=== PATIENT | male | born 1970 | race Caucasian/White ===

== ENCOUNTER 2016-09-14 22:31 | Emergency (ER) | payer MEDICAID, OTHER ==
[2016-09-14 22:40] VITALS: TEMP 98
--- NOTE | 2016-09-14 22:48 | ED ---
Fall HPI - General Chief Complaint: Fall Stated Complaint: Fall/[facility] Time Seen by Provider: 09/14/16 22:41 Source: patient, RN notes reviewed Mode of arrival: ambulatory - History of Present Illness Initial Comments: 46 -year-old male presents emergency out he fell forward. Patient states he had his left knee as well as his left wrist. Patient states he did not hit his head there is no lightheadedness or dizziness before the fall. Patient states the pain is moderate he is able to bear weight. Diagnosis swelling and some clots. Patient states he hasn't had any other injuries from the incident. Patient states she was concerned due to the fact that the bruising and the cuts without that he should be evaluated.Patient denies any recent fever, chills, shortness of breath, chest pain, back pain, abdominal pain, nausea vomiting, numbness or tingling, dysuria or hematuria, constipation or diarrhea, headaches or visual changes, or any other current symptoms. - Related Data Home Medications Medication Instructions Recorded Confirmed Omeprazole [Omeprazole] 20 mg PO BID 04/29/14 09/14/16 Atenolol [Tenormin] 50 mg PO DAILY 05/21/15 09/14/16 amLODIPine BESYLATE [Norvasc] 10 mg PO DAILY 05/21/15 09/14/16 ALPRAZolam [ALPRAZolam] 0.25 mg PO DAILY PRN 03/10/16 09/14/16 Fluticasone/Vilanterol [Breo 1 puff INHALATION RT-DAILY PRN 03/10/16 09/14/16 Ellipta 100-25 Mcg Inhaler] Hydrocodone/Acetaminophen 1 tab PO TID PRN 03/10/16 09/14/16 [Hydrocodon-Acetaminoph 7.5-325] QUEtiapine FUMARATE [SEROquel XR] 300 mg PO HS 03/10/16 09/14/16 Simvastatin [Simvastatin] 40 mg PO HS 03/10/16 09/14/16 cloNIDine HCL [Catapres] 0.2 mg PO TID 03/10/16 09/14/16 Aspirin 81 mg PO DAILY 03/23/16 09/14/16 Allergies Allergy/AdvReac Type Severity Reaction Status Date / Time No Known Allergies Allergy Verified 09/14/16 23:09 Review of Systems ROS Statement: Those systems with pertinent positive or pertinent negative responses have been documented in the HPI. ROS Other: All systems not noted in ROS Statement are negative. Past Medical History Past Medical History: Hyperlipidemia, Hypertension Additional Past Medical History / Comment(s): pancreatitis History of Any Multi-Drug Resistant Organisms: None Reported Past Surgical History: Cholecystectomy, Hernia Repair Past Psychological History: No Psychological Hx Reported, Anxiety, Bipolar Smoking Status: Current every day smoker Past Alcohol Use History: None Reported Past Drug Use History: None Reported General Exam - General Exam Comments Initial Comments: General: The patient is awake and alert, in no distress, and does not appear acutely ill. Neck: The neck is supple, there is no tenderness. Cardiovascular: There is a regular rate and rhythm. No murmur, rub or gallop is appreciated. Respiratory: Lungs are clear to auscultation, respirations are non-labored, breath sounds are equal. No wheezes, stridor, rales, or rhonchi. Musculoskeletal: Sensation intact with 2+ pulses of the left upper and lower extremity Full range of motion of left elbow and left wrist left hand. Patient does have some abrasions to the left lateral wrist. Full range of motion no deformity. Patient has full range of motion of left knee and left ankle. Patient does appear to have some ecchymosis to the anterior proximal tib -fib area. No bony tenderness. No deformity. Patient is able to bear weight. Neurological: CN II-XII intact, There are no obvious motor or sensory deficits. Coordination appears grossly intact. Speech is normal. Skin: Skin is warm and dry and no rashes or lesions are noted. Psychiatric: Normal mood and affect. Limitations: no limitations Course Vital Signs 09/14/16 22:37 Temperature 98.0 F Pulse Rate 87 Respiratory 18 Rate Blood Pressure 128/85 O2 Sat by Pulse 94 L Oximetry Medical Decision Making - Medical Decision Making 46-year-old male presents with chief complaint fall. This time patient appears to have presents for left wrist and left wrist sprain. Patient also appears to have a contusion to the left knee. This time we discussed using Motrin Tylenol for pain control we discussed rest and ice. We discussed return parameters and follow-up. The patient and family stated he understood all questions have any answered. They will be discharged home. - Radiology Data Radiology results: report reviewed, image reviewed Disposition Clinical Impression: Fall, Abrasion of left wrist, Left wrist sprain, Contusion of left knee Disposition: HOME SELF-CARE Instructions: Abrasion (ED), Contusion in Adults (ED) Additional Instructions: Please use medication as discussed. Please follow up with family doctor if symptoms have not improved over the next two days. Please return to the emergency room if your symptoms increase or worsen or for any other concerns. Referrals: Jabari Sorto MD [Primary Care Provider] - 1-2 days Time of Disposition: 23:21
[2016-09-14] MEDS ORDERED: IBUPROFEN 600 MG TAB PO STA (22:56)
--- NOTE | 2016-09-14 23:08 | XR ---
EXAMINATION TYPE: XR wrist complete LT DATE OF EXAM: 09/14/2016 10:56 PM CLINICAL HISTORY: pain history of fall from ladder laceration to the medial side of the left wrist. TECHNIQUE: Frontal, lateral and oblique images of the left wrist are obtained. COMPARISON: None. FINDINGS: There is no acute fracture/dislocation evident. The joint spaces appear within normal bosch its. Mild soft tissue swelling is suggested. IMPRESSION: There is no acute fracture or dislocation seen. ICD 10 NO FRACTURE, INITIAL EVALUATION
--- NOTE | 2016-09-14 23:15 | XR ---
EXAMINATION TYPE: XR tibia fibula LT DATE OF EXAM: 09/14/2016 10:56 PM CLINICAL HISTORY: pain. History of fall bruise to the anterior midshaft of left tibia and fibula. TECHNIQUE: AP and lateral images of the left tibia and fibula are obtained. COMPARISON: None. FINDINGS: There is no acute fracture/dislocation evident. The joint spaces appear within normal bosch its. Mild soft tissue swelling is suggested. IMPRESSION: There is no acute fracture or dislocation seen. ICD 10 NO FRACTURE, INITIAL EVALUATION
[2016-09-14] MEDS ORDERED: DIPH,PERTUS(ACELL)TETVAC-LF 0.5 ML VIAL IM ONE (23:22)
[2016-09-14 23:29] VITALS: BP 114/81; PULSE 80; RESP 16
== END 2016-09-14 23:49 | disposition home or self-care (01) ==
LOC: EC 22:31
DX: S63.502A Unspecified sprain of left wrist, initial encounter (principal); S80.02XA Contusion of left knee, initial encounter; E78.5 Hyperlipidemia, unspecified; I10 Essential (primary) hypertension; F31.9 Bipolar disorder, unspecified; F41.9 Anxiety disorder, unspecified; Z23 Encounter for immunization; Z79.82 Long term (current) use of aspirin; Z79.899 Other long term (current) drug therapy; W11.XXXA Fall on and from ladder, initial encounter
CPT/HCPCS: 90471; 90715; 99284

== ENCOUNTER → 2017-02-03 | Outpatient (CLI) | payer MEDICAID ==
--- NOTE | 2017-02-03 12:23 | ECHOF ---
Referral Reason:I34.0 Mitro Valve Disorders MEASUREMENTS -------- HEIGHT: 195.6 cm WEIGHT: 113.4 kg BP: 116/69 RVIDd: 3.7 cm (< 3.3) IVSd: 1.3 cm (0.6 - 1.1) LVIDd: 4.7 cm (3.9 - 5.3) LVPWd: 1.4 cm (0.6 - 1.1) IVSs: 1.8 cm LVIDs: 3.3 cm LVPWs: 1.9 cm LA Diam: 4.2 cm (2.7 - 3.8) LAESV Index (A-L): 24.75 ml/m Ao Diam: 3.4 cm (2.0 - 3.7) AV Cusp: 2.5 cm (1.5 - 2.6) MV EXCURSION: 16.226 mm (> 18.000) MV EF SLOPE: 89 mm/s (70 - 150) EPSS: 0.5 cm MV E Jesus Alberto: 1.02 m/s MV DecT: 234 ms MV A Jesus Alberto: 0.79 m/s MV E/A Ratio: 1.30 RAP: 5.00 mmHg RVSP: 25.57 mmHg FINDINGS -------- Sinus rhythm. This was a technically good study. The left ventricular size is normal. There is mild concentric left ventricular hypertrophy. Overall left ventricular systolic function is normal with, an EF between 60 - 65 %. The right ventricle is mildly enlarged. Normal LA size by volume 22+/-6 ml/m2. The right atrium is normal in size. The aortic valve is trileaflet and appears structurally normal. The mitral valve leaflets are mildly thickened. Mild mitral regurgitation is present. Mild tricuspid regurgitation present. Right ventricular systolic pressure is normal at < 35 mmHg. Trace/mild (physiologic) pulmonic regurgitation. The aortic root size is normal. The inferior vena cava is mildly dilated. The pericardium is normal. CONCLUSIONS -------- 1. Sinus rhythm. 2. The mitral valve leaflets are mildly thickened. 3. Mild mitral regurgitation is present. 4. Mild tricuspid regurgitation present. 5. Right ventricular systolic pressure is normal at < 35 mmHg. 6. Trace/mild (physiologic) pulmonic regurgitation. 7. The aortic root size is normal. 8. The inferior vena cava is mildly dilated. 9. The pericardium is normal. 10. This was a technically good study. 11. The left ventricular size is normal. 12. There is mild concentric left ventricular hypertrophy. 13. Overall left ventricular systolic function is normal with, an EF between 60 - 65 %. 14. The right ventricle is mildly enlarged. 15. Normal LA size by volume 22+/-6 ml/m2. 16. The right atrium is normal in size. 17. The aortic valve is trileaflet and appears structurally normal. STAVE [employer] BOLT EQUALIZER: Stacia Conklin RDCS
== END | disposition home or self-care (01) ==
LOC: RADECHMAIN 11:21
PROVIDERS: ATTEND Internal Medicine Interventional Cardiology
DX: I08.1 Rheumatic disorders of both mitral and tricuspid valves (principal); I87.8 Other specified disorders of veins
CPT/HCPCS: 93306

== ENCOUNTER → 2017-09-29 | Outpatient (CLI) | payer MEDICAID | END | disposition home or self-care (01) | LOC: LABWHC1 16:13 | PROVIDERS: ATTEND Internal Medicine Infectious Disease | DX: E27.40 Unspecified adrenocortical insufficiency (principal) | CPT/HCPCS: 36415; 82533 ==

== ENCOUNTER → 2017-10-01 | Outpatient (CLI) | payer MEDICAID ==
--- NOTE | 2017-10-02 15:40 | CT ---
EXAMINATION TYPE: CT chest w con DATE OF EXAM: 10/01/2017 COMPARISON: NONE HISTORY: Right sided chest pain and cough CT DLP: 507.8 mGycm Automated exposure control for dose reduction was used. CONTRAST: CT scan of the chest is performed with IV Contrast, patient injected with 100 mL of Omnipaque 300. FINDINGS: There is 8 mm calcified granuloma in the superior segment right lower lobe. There is mild linear dens ity at the posterior lung bases. There is no pleural effusion. There is no evidence of a pulmonary ma ss. There is no mediastinal adenopathy. There are no hilar masses. Heart size is normal. There is no pericardial effusion. Thoracic aorta appears intact. There is no sign of aneurysm or dissection. The bony thorax appears intact. There is some coronary artery calcification. IMPRESSION: There is some scarring in atelectasis at the posterior lung bases. Healed granulomatous disease. No evidence of bronchopneumonia.
== END | disposition home or self-care (01) ==
LOC: RADCTMAIN 10:48
PROVIDERS: ATTEND Family Medicine
DX: J98.11 Atelectasis (principal); J98.4 Other disorders of lung
CPT/HCPCS: 71260; Q9967

== ENCOUNTER → 2017-11-03 | Outpatient (CLI) | payer MEDICAID ==
[2017-11-03 21:12] LABS: ACTH 14.6 pg/mL (0.00-45.99)
== END | disposition home or self-care (01) ==
LOC: LABWHC1 10:37
PROVIDERS: ATTEND Internal Medicine Endocrinology, Diabetes & Metabolism
DX: E27.3 Drug-induced adrenocortical insufficiency (principal); E29.1 Testicular hypofunction; F17.200 Nicotine dependence, unspecified, uncomplicated
CPT/HCPCS: 36415; 82024; 82533; 82607; 83002; 84403; 84443

== ENCOUNTER → 2017-11-09 | Outpatient (CLI) | payer MEDICAID ==
--- NOTE | 2017-11-09 14:11 | US ---
EXAMINATION TYPE: US carotid duplex BILAT DATE OF EXAM: 11/09/2017 COMPARISON: NONE CLINICAL HISTORY: R20.0 ANESTHESIA OF SKIN. Intermittent right arm numbness and neck pain x couple we eks EXAM MEASUREMENTS: RIGHT: Peak Systolic Velocity (PSV) cm/sec ----- Right CCA: 70.0 ----- Right ICA: 78.7 ----- Right ECA: 114.7 ICA/CCA ratio: 1.1 RIGHT: End Diastole cm/sec ----- Right CCA: 20.9 ----- Right ICA: 30.3 ----- Right ECA: 29.2 LEFT: Peak Systolic Velocity (PSV) cm/sec ----- Left CCA: 106.6 ----- Left ICA: 86.4 ----- Left ECA: 94.1 ICA/CCA ratio: 0.8 LEFT: End Diastole cm/sec ----- Left CCA: 27.2 ----- Left ICA: 19.3 ----- Left ECA: 24.8 VERTEBRALS (direction of flow): Right Vertebral: Antegrade Left Vertebral: Antegrade Rhythm: Normal No elevated velocities, no significant stenosis. Some mild intimal thickening may be present on the left. No significant flow-limiting stenosis is aarti dent. IMPRESSION: 1. Suggestion of minimal left intimal thickening. 2. No significant flow-limiting stenosis. Criteria for Assigning % of Stenosis / Diameter reduction (Estimation based on the indirect measurements of the internal carotid artery velocities (ICA PSV). 1. Normal (no stenosis)=ICA PSV < 125 cm/s: ratio < 2.0: ICA EDV<40 cm/s. 2. Less than 50% stenosis=ICA PSV < 125 cm/s: ratio < 2.0: ICA EDV<40 cm/s. 3. 50 to 69% stenosis=ICA PSV of 125 to 230 cm/s: ration 2.0 ? 4.0: ICA EDV 40-100 cm/s. 4. Greater than 70% stenosis to near occlusion= ICA PSV > 230 cm/s: ratio > 4.0: ICA EDV > 100 cm/s. 5. Near occlusion= ICA PSV velocities may be low or undetectable: variable ratio and ICA EDV. 6. Total occlusion=unable to detect flow.
== END | disposition home or self-care (01) ==
LOC: RADUSWWP 13:26
PROVIDERS: ATTEND Internal Medicine
DX: R20.0 Anesthesia of skin (principal)
CPT/HCPCS: 93880

== ENCOUNTER → 2017-11-11 | Outpatient (CLI) | payer MEDICAID ==
--- NOTE | 2017-11-11 12:34 | MR ---
EXAMINATION TYPE: MR cervical spine wo con DATE OF EXAM: 11/11/2017 COMPARISON: NONE HISTORY: Cervical pain TECHNIQUE: Multiplanar, multisequence images of the cervical spine were acquired. C2-C3: No evidence for degenerative disc disease. No disc bulge/herniation or protrusion. No Canal stenosis. Foramina are patent bilaterally. C3-C4: No evidence for degenerative disc disease. No disc bulge/herniation or protrusion. No Canal stenosis. Foramina are patent bilaterally. C4-C5: No evidence for degenerative disc disease. No disc bulge/herniation or protrusion. No Canal stenosis. Foramina are patent bilaterally. C5-C6: There is some asymmetric right paracentral disc bulge with mild anterior thecal sac compressio n. No AP spinal canal stenosis is present. No cord contact is evident. Uncovertebral joint hypertroph y is mild bilateral foraminal narrowing. C6-C7: Broad-based disc bulge has mild anterior thecal sac contact. No cord contact or spinal canal s tenosis is present. Neural foramen are patent. C7-T1: No evidence for degenerative disc disease. No disc bulge/herniation or protrusion. No Canal stenosis. Foramina are patent bilaterally. Cervical segments are intact. There is normal alignment. Cervical spinal cord is of normal signal. Craniovertebral junction relationships are within normal limits. IMPRESSION: 1. Right paracentral small disc bulge with mild anterior thecal sac compression. 2. Broad-based mild to moderate disc bulge C6-7 with mild anterior thecal sac impression.
== END | disposition home or self-care (01) ==
LOC: RADMRIMAIN 11:05
PROVIDERS: ATTEND Family Medicine
DX: M50.122 Cervical disc disorder at C5-C6 level with radiculopathy (principal)
CPT/HCPCS: 72141

== ENCOUNTER → 2017-11-21 | Outpatient (CLI) | payer MEDICAID | END | disposition home or self-care (01) | LOC: LABWHC1 11:49 | PROVIDERS: ATTEND Internal Medicine Endocrinology, Diabetes & Metabolism | DX: E27.3 Drug-induced adrenocortical insufficiency (principal); E29.1 Testicular hypofunction; R53.83 Other fatigue | CPT/HCPCS: 36415; 82024; 82533 ==

== ENCOUNTER 2018-01-07 23:04 | Emergency (ER) | payer MEDICAID ==
[2018-01-07] MEDS ORDERED: FAMOTIDINE 20 MG/2 ML VIAL IV STA (23:46)
[2018-01-07] MEDS ORDERED: DICYCLOMINE 10 MG/ML 2 ML AMP IM STA (23:46)
[2018-01-07] MEDS ORDERED: SODIUM CHLORIDE 0.9% 1,000 ML IV STA (23:46)
--- NOTE | 2018-01-07 23:49 | ED ---
General Adult HPI - General Chief complaint: Abdominal Pain Stated complaint: Abdominal pain Time Seen by Provider: 01/07/18 23:40 Source: patient, RN notes reviewed Mode of arrival: ambulatory Limitations: no limitations - History of Present Illness Initial comments: Patient is a pleasant 47-year-old male presenting to the emergency Department with abdominal discomfort. Symptoms have been present for the past 7-10 days. Patient did feel somewhat constipated however took a laxative with a bowel movement and no change in symptoms. No nausea vomiting. No diarrhea. No dysuria or hematuria. No fever. Symptoms feel somewhat similar to previous hernia however patient does not feel patient protrudes in from the abdomen. Patient does have a history of hernia repair approximately one year ago in this area. Patient has known acid reflux disease and questions if this could be contributing factor. - Related Data Home Medications Medication Instructions Recorded Confirmed Omeprazole [Omeprazole] 20 mg PO BID 04/29/14 09/14/16 Atenolol [Tenormin] 50 mg PO DAILY 05/21/15 09/14/16 amLODIPine BESYLATE [Norvasc] 10 mg PO DAILY 05/21/15 09/14/16 ALPRAZolam [ALPRAZolam] 0.25 mg PO DAILY PRN 03/10/16 09/14/16 Fluticasone/Vilanterol [Breo 1 puff INHALATION RT-DAILY PRN 03/10/16 09/14/16 Ellipta 100-25 Mcg Inhaler] Hydrocodone/Acetaminophen 1 tab PO TID PRN 03/10/16 09/14/16 [Hydrocodon-Acetaminoph 7.5-325] QUEtiapine FUMARATE [SEROquel XR] 300 mg PO HS 03/10/16 09/14/16 Simvastatin [Simvastatin] 40 mg PO HS 03/10/16 09/14/16 cloNIDine HCL [Catapres] 0.2 mg PO TID 03/10/16 09/14/16 Aspirin 81 mg PO DAILY 03/23/16 09/14/16 Previous Rx's Medication Instructions Recorded Albuterol Inhaler [Ventolin Hfa 1 - 2 puff INHALATION Q6HR PRN #1 07/24/17 Inhaler] inhaler predniSONE 60 mg PO DAILY #30 tab 07/24/17 Pantoprazole [Protonix] 40 mg PO DAILY #30 tablet. 01/08/18 Allergies Allergy/AdvReac Type Severity Reaction Status Date / Time No Known Allergies Allergy Verified 01/07/18 23:15 Review of Systems ROS Statement: Those systems with pertinent positive or pertinent negative responses have been documented in the HPI. ROS Other: All systems not noted in ROS Statement are negative. Constitutional: Denies: fever Eyes: Denies: eye pain ENT: Denies: ear pain Respiratory: Denies: cough Cardiovascular: Denies: chest pain Endocrine: Reports: fatigue Gastrointestinal: Reports: abdominal pain. Denies: nausea, vomiting, diarrhea Genitourinary: Denies: dysuria Musculoskeletal: Denies: back pain Skin: Denies: rash Neurological: Denies: headache Past Medical History Past Medical History: Hyperlipidemia, Hypertension Additional Past Medical History / Comment(s): pancreatitis History of Any Multi-Drug Resistant Organisms: None Reported Past Surgical History: Cholecystectomy, Hernia Repair Past Psychological History: Anxiety, Bipolar Smoking Status: Current every day smoker Past Alcohol Use History: None Reported Past Drug Use History: None Reported General Exam Limitations: no limitations General appearance: alert, in no apparent distress Head exam: Present: atraumatic Eye exam: Present: normal appearance Neck exam: Present: normal inspection Respiratory exam: Present: normal lung sounds bilaterally Cardiovascular Exam: Present: regular rate, normal rhythm Expanded Peripheral pulses: 2+: Posterior Tibialis (R), Posterior Tibialis (L) GI/Abdominal exam: Present: soft, tenderness (Mild umbilical tenderness), normal bowel sounds. Absent: distended, guarding, rebound, rigid, pulsatile mass, hernia (No hernia palpated on exam) Extremities exam: Present: normal inspection Neurological exam: Present: alert Psychiatric exam: Present: normal affect, normal mood Skin exam: Present: normal color Course Vital Signs 01/07/18 23:14 Temperature 98.2 F Pulse Rate 84 Respiratory 18 Rate Blood Pressure 126/88 O2 Sat by Pulse 98 Oximetry Medical Decision Making - Medical Decision Making Patient reevaluated and resting comfortably in bed. Patient states there is now much improvement with medications however does not want further medication at this time. Patient states he does have an appointment with his surgeon on and is advised to try to get this sooner. Patient also advised to consider GI follow-up. - Lab Data Result diagrams: 01/08/18 00:15 01/08/18 00:15 Lab Results 01/08/18 01/08/1801/08/18 Range/Units 00:15 00:15 00:15 WBC 9.4 (3.8-10.6) k/uL RBC 4.78 (4.30-5.90) m/uL Hgb 14.2 (13.0-17.5) gm/dL Hct 40.7 (39.0-53.0) % MCV 85.1 (80.0-100.0) fL MCH 29.7 (25.0-35.0) pg MCHC 34.9 (31.0-37.0) g/dL RDW 12.8 (11.5-15.5) % Plt Count 187 (150-450) k/uL Neutrophils % 61 % Lymphocytes % 26 % Monocytes % 7 % Eosinophils % 3 % Basophils % 1 % Neutrophils # 5.7 (1.3-7.7) k/uL Lymphocytes # 2.4 (1.0-4.8) k/uL Monocytes # 0.7 (0-1.0) k/uL Eosinophils # 0.3 (0-0.7) k/uL Basophils # 0.1 (0-0.2) k/uL PT 9.9 (9.0-12.0) sec INR 1.0 (<1.2) APTT 23.0 (22.0-30.0) sec Sodium 141 (137-145) mmol/L Potassium 4.0 (3.5-5.1) mmol/L Chloride 103 (98-107) mmol/L Carbon Dioxide 25 (22-30) mmol/L Anion Gap 13 mmol/L BUN 12 (9-20) mg/dL Creatinine 0.90 (0.66-1.25) mg/dL Est GFR (CKD-EPI)AfAm >90 (>60 ml/min/1.73 sqM) Est GFR (CKD-EPI)NonAf >90 (>60 ml/min/1.73 sqM) Glucose 89 (74-99) mg/dL Calcium 9.5 (8.4-10.2) mg/dL Total Bilirubin 0.3 (0.2-1.3) mg/dL AST 37 (17-59) U/L ALT 56 (21-72) U/L Alkaline Phosphatase 79 (38-126) U/L Total Protein 7.0 (6.3-8.2) g/dL Albumin 4.5 (3.5-5.0) g/dL Amylase 38 (30-110) U/L Lipase 59 (23-300) U/L Urine Color Urine Appearance (Clear) Urine pH (5.0-8.0) Ur Specific [place] (1.001-1.035) Urine Protein (Negative) Urine Glucose (UA) (Negative) Urine Ketones (Negative) Urine Blood (Negative) Urine Nitrite (Negative) Urine Bilirubin (Negative) Urine Urobilinogen (<2.0) mg/dL Ur Leukocyte Esterase (Negative) 01/08/18 Range/Units 00:15 WBC (3.8-10.6) k/uL RBC (4.30-5.90) m/uL Hgb (13.0-17.5) gm/dL Hct (39.0-53.0) % MCV (80.0-100.0) fL MCH (25.0-35.0) pg MCHC (31.0-37.0) g/dL RDW (11.5-15.5) % Plt Count (150-450) k/uL Neutrophils % % Lymphocytes % % Monocytes % % Eosinophils % % Basophils % % Neutrophils # (1.3-7.7) k/uL Lymphocytes # (1.0-4.8) k/uL Monocytes # (0-1.0) k/uL Eosinophils # (0-0.7) k/uL Basophils # (0-0.2) k/uL PT (9.0-12.0) sec INR (<1.2) APTT (22.0-30.0) sec Sodium (137-145) mmol/L Potassium (3.5-5.1) mmol/L Chloride (98-107) mmol/L Carbon Dioxide (22-30) mmol/L Anion Gap mmol/L BUN (9-20) mg/dL Creatinine (0.66-1.25) mg/dL Est GFR (CKD-EPI)AfAm (>60 ml/min/1.73 sqM) Est GFR (CKD-EPI)NonAf (>60 ml/min/1.73 sqM) Glucose (74-99) mg/dL Calcium (8.4-10.2) mg/dL Total Bilirubin (0.2-1.3) mg/dL AST (17-59) U/L ALT (21-72) U/L Alkaline Phosphatase (38-126) U/L Total Protein (6.3-8.2) g/dL Albumin (3.5-5.0) g/dL Amylase (30-110) U/L Lipase (23-300) U/L Urine Color Light Yellow Urine Appearance Clear (Clear) Urine pH 5.5 (5.0-8.0) Ur Specific [place] 1.004 (1.001-1.035) Urine Protein Negative (Negative) Urine Glucose (UA) Negative (Negative) Urine Ketones Negative (Negative) Urine Blood Negative (Negative) Urine Nitrite Negative (Negative) Urine Bilirubin Negative (Negative) Urine Urobilinogen <2.0 (<2.0) mg/dL Ur Leukocyte Esterase Negative (Negative) - Radiology Data Radiology results: report reviewed (Computed tomography scan of the abdomen pelvis shows no acute abnormality) Disposition Clinical Impression: Abdominal pain Disposition: HOME SELF-CARE Condition: Stable Instructions: Abdominal Pain (ED) Additional Instructions: Please follow-up with primary care physician as well as your surgeon as well as gastroenterology in the next couple of days for recheck. Return for increased pain, fever, vomiting, worsening or change in symptoms or other concerns. Prescriptions: Pantoprazole [Protonix] 40 mg PO DAILY #30 tablet.dr Is patient prescribed a controlled substance at d/c from ED?: No Referrals: Сергей Elizabeth MD [Primary Care Provider] - 1-2 days Brian Francois MD [STAFF PHYSICIAN] - 1-2 days Arie Buckley MD [STAFF PHYSICIAN] - 1-2 days Time of Disposition: 01:17
[2018-01-08 00:32] LABS: Basophils # (A) 0.1 k/uL (0-0.2); Basophils % (A) 1 %; Eosinophils # (A) 0.3 k/uL (0-0.7); Eosinophils % (A) 3 %; HCT 40.7 % (39.0-53.0); HGB 14.2 gm/dL (13.0-17.5); Lymphocytes # (A) 2.4 k/uL (1.0-4.8); Lymphocytes % (A) 26 %; MCH 29.7 pg (25.0-35.0); MCHC 34.9 g/dL (31.0-37.0); MCV 85.1 fL (80.0-100.0); Mean Platelet Volume 9.1; Monocytes # (A) 0.7 k/uL (0-1.0); Monocytes % (A) 7 %; Neutrophils # (A) 5.7 k/uL (1.3-7.7); Neutrophils % (A) 61 %; Platelet Count 187 k/uL (150-450); RBC 4.78 m/uL (4.30-5.90); RDW 12.8 % (11.5-15.5); WBC 9.4 k/uL (3.8-10.6)
[2018-01-08 00:33] LABS: Appearance,Urine Clear (Clear); Bilirubin,Urine Negative (Negative); Blood,Urine Negative (Negative); Color,Urine Light Yellow; Glucose,Urine (UA) Negative (Negative); Ketones,Urine Negative (Negative); Leukocyte Esterase,Urine Negative (Negative); Nitrite,Urine Negative (Negative); PH, Urine 5.5 (5.0-8.0); Protein,Urine Negative (Negative); Specific Gravity,Urine 1.004 (1.001-1.035); Urobilinogen,Urine <2.0 mg/dL (<2.0)
[2018-01-08 00:43] LABS: ALT 56 U/L (21-72); AST 37 U/L (17-59); Albumin 4.5 g/dL (3.5-5.0); Alkaline Phosphatase 79 U/L (38-126); Amylase 38 U/L (30-110); Anion Gap 13 mmol/L; Blood Urea Nitrogen 12 mg/dL (9-20); Calcium 9.5 mg/dL (8.4-10.2); Carbon Dioxide 25 mmol/L (22-30); Chloride 103 mmol/L (98-107); Glucose 89 mg/dL (74-99); Lipase 59 U/L (23-300); Sodium 141 mmol/L (137-145); Total Bilirubin 0.3 mg/dL (0.2-1.3)
[2018-01-08 00:46] LABS: Prothrombin Time 9.9 sec (9.0-12.0)
--- NOTE | 2018-01-08 00:54 | CT ---
EXAMINATION TYPE: CT abdomen pelvis w con DATE OF EXAM: 01/08/2018 COMPARISON: 03/11/2016 HISTORY: Umbilcal pain, lower abd pain CT DLP: 1599.10 mGycm Automated exposure control for dose reduction was used. TECHNIQUE: Helical acquisition of images was performed from the lung bases through the pelvis. CONTRAST: Performed without Oral Contrast and with IV Contrast, patient injected with 100 mL of Isovue 300. FINDINGS: There is mild subsegmental atelectasis at the lung bases. There is no pleural effusion. Heart size is normal. There are clips from cholecystectomy. Bile ducts are not dilated. Liver spleen pancreas appear normal . There is no adrenal mass. Kidneys show satisfactory contrast opacification. There is no hydronephro sis. There is no retroperitoneal adenopathy. There is no ascites. There are numerous sigmoid divertic roberto. There is no evidence of diverticulitis. Appendix appears normal. Bladder distends smoothly. Ther e is no evidence of pelvic mass. There is no sign of free air. Bony structures are intact. IMPRESSION: MILD SIGMOID DIVERTICULOSIS. NO EVIDENCE OF DIVERTICULITIS. MILD SUBSEGMENTAL ATELECTASIS AT THE LUNG BASES WITHOUT CHANGE COMPARED TO OLD EXAM.
[2018-01-08 01:26] VITALS: BP 130/83; PULSE 64; RESP 16; TEMP 97.1
== END 2018-01-08 01:25 | disposition home or self-care (01) ==
LOC: EC 23:04
DX: R10.33 Periumbilical pain (principal); E78.5 Hyperlipidemia, unspecified; I10 Essential (primary) hypertension; F31.9 Bipolar disorder, unspecified; F41.9 Anxiety disorder, unspecified; F17.200 Nicotine dependence, unspecified, uncomplicated; Z87.19 Personal history of other diseases of the digestive system; Z79.82 Long term (current) use of aspirin; Z79.899 Other long term (current) drug therapy
CPT/HCPCS: 36415; 80053; 82150; 83690; 85025; 85610; 85730; 81003; 74177; 99284; 96374; 96361; 96372; J0500; Q9967

== ENCOUNTER 2018-01-23 08:24 | Day surgery (SDC) | payer MEDICAID ==
[2018-01-18 11:53] VITALS: BMI 31.6
[~2018-01-23 08:24] MED LIST: LACTATED RINGERS 1,000 ML IV SCH; LIDOCAINE 1% 20 ML VIAL (10MG/ML) FOR IV START INTRADERMA PRN
[2018-01-23 09:36] VITALS: TEMP 98
[2018-01-23] MEDS ORDERED: LIDOCAINE 1% INJ 10MG/ML (20 ML MDV) ONE (10:53)
[2018-01-23] MEDS ORDERED: GLUCAGON 1 MG/ML VIAL ONE (10:53)
[2018-01-23] MEDS ORDERED: PROPOFOL 10 MG/ML 20 ML VIAL IV ONE (10:53)
--- NOTE | 2018-01-23 10:58 | P.GSHP ---
History of Present Illness H&P Date: 01/23/18 Chief Complaint: gerd, diverticulitis, abdominal pain This is a 47-year-old male who's had issues with GERD and diverticulitis. He presents today for EGD and colonoscopy. Past Medical History Past Medical History: Hyperlipidemia, Hypertension Additional Past Medical History / Comment(s): Hx of pancreatitis History of Any Multi-Drug Resistant Organisms: None Reported Past Surgical History: Cholecystectomy, Hernia Repair Past Anesthesia/Blood Transfusion Reactions: No Reported Reaction Past Psychological History: Anxiety, Bipolar Smoking Status: Current every day smoker Past Alcohol Use History: None Reported Additional Past Alcohol Use History / Comment(s): has smoked for 31 yrs 1ppd Past Drug Use History: None Reported - Past Family History Mother Family Medical History: No Reported History Medications and Allergies Home Medications Medication Instructions Recorded Confirmed Type Omeprazole [Omeprazole] 20 mg PO BID 04/29/14 01/18/18 History Atenolol [Tenormin] 50 mg PO DAILY 05/21/15 01/18/18 History amLODIPine BESYLATE [Norvasc] 10 mg PO DAILY 05/21/15 01/18/18 History ALPRAZolam [ALPRAZolam] 0.25 mg PO DAILY PRN 03/10/16 01/18/18 History Fluticasone/Vilanterol [Breo 1 puff INHALATION RT-DAILY PRN 03/10/16 01/18/18 History Ellipta 100-25 Mcg Inhaler] Hydrocodone/Acetaminophen 1 tab PO TID PRN 03/10/16 01/18/18 History [Hydrocodon-Acetaminoph 7.5-325] QUEtiapine FUMARATE [SEROquel XR] 300 mg PO HS 03/10/16 01/18/18 History Simvastatin [Simvastatin] 40 mg PO HS 03/10/16 01/18/18 History cloNIDine HCL [Catapres] 0.2 mg PO TID 03/10/16 01/18/18 History Aspirin 81 mg PO DAILY 03/23/16 01/18/18 History Albuterol Inhaler [Ventolin Hfa 1 - 2 puff INHALATION Q6HR PRN #1 07/24/1701/18 Rx Inhaler] inhaler Allergies Allergy/AdvReac Type Severity Reaction Status Date / Time No Known Allergies Allergy Verified 01/18/18 11:48 Surgical - Exam Vital Signs Temp Pulse Resp BP Pulse Ox 98 F 64 18 113/76 98 01/23/18 09:29 01/23/18 09:29 01/23/18 09:29 01/23/18 09:29 01/23/18 09:29 - General well developed, no distress - Eyes PERRL - ENT normal pinna - Neck no masses - Respiratory normal expansion - Cardiovascular Rhythm: regular - Abdomen Abdomen: soft Assessment and Plan Assessment: GERD, diverticulitis, abdominal pain we'll perform EGD and colonoscopy.
--- NOTE | 2018-01-23 11:24 | P.OP ---
Date of Procedure: 01/23/18 Preoperative Diagnosis: GERD Diverticulitis, Abdominal pain Postoperative Diagnosis: Mild esophagitis Small hiatal hernia Mild diverticulosis Procedure(s) Performed: EGD Colonoscopy Anesthesia: MAC Pathology: other (esophagus) Condition: stable Disposition: PACU Description of Procedure: The patient's placed on the endoscopy table in the lateral position. He received IV sedation. The gastroscope some placed oropharynx and passed through the esophagus into the stomach. Scope was then placed through the pylorus. The first and second portion of the duodenum appeared normal. The scope was then brought back the antrum and this appeared normal. Scope was unretroflexed and remainder of the stomach appeared normal. There was a small hiatal hernia. The GE junction was at 40 cm. The distal esophagus appeared mildly inflamed and a biopsies performed. The proximal esophagus appeared normal. Scope was withdrawn for patient. Next digital rectal exam was performed which revealed no abnormalities. The flexible colonoscope was then placed patient anus and passed throughout the entire colon. The ileocecal valve was visualized. The cecum, ascending and transverse colon appeared normal. In the descending and; was a few scattered diverticula. Scope was then brought back the rectum and this appeared normal. Scope was withdrawn for patient.
[2018-01-23 11:26] VITALS: RESP 16
[2018-01-23 11:37] VITALS: BP 121/75; PULSE 58
== END 2018-01-23 12:03 | disposition home or self-care (01) ==
LOC: ORWHC2ENDO 08:24
PROVIDERS: ATTEND Surgery
DX: K21.0 Gastro-esophageal reflux disease with esophagitis (principal); K44.9 Diaphragmatic hernia without obstruction or gangrene; K57.92 Diverticulitis of intestine, part unspecified, without perforation or abscess without bleeding; K31.9 Disease of stomach and duodenum, unspecified; I10 Essential (primary) hypertension; E78.5 Hyperlipidemia, unspecified; F17.210 Nicotine dependence, cigarettes, uncomplicated; Z87.19 Personal history of other diseases of the digestive system; F41.9 Anxiety disorder, unspecified; F31.9 Bipolar disorder, unspecified; Z79.82 Long term (current) use of aspirin; Z79.891 Long term (current) use of opiate analgesic; Z79.51 Long term (current) use of inhaled steroids; Z79.899 Other long term (current) drug therapy
CPT/HCPCS: 88305; 45378; 43239; J1610; J2001; J2704

== ENCOUNTER → 2018-01-26 | Outpatient (CLI) | payer MEDICAID ==
[2018-01-24 16:02] VITALS: BMI 31.6
[2018-01-26 14:01] VITALS: BP 129/88; PULSE 84; RESP 18
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
== END | disposition home or self-care (01) ==
LOC: PNWHC3 13:02
PROVIDERS: ATTEND Anesthesiology
DX: M47.812 Spondylosis without myelopathy or radiculopathy, cervical region (principal); I10 Essential (primary) hypertension; E78.5 Hyperlipidemia, unspecified; Z79.899 Other long term (current) drug therapy; Z79.891 Long term (current) use of opiate analgesic; Z79.82 Long term (current) use of aspirin; Z79.1 Long term (current) use of non-steroidal anti-inflammatories (NSAID)
CPT/HCPCS: 99211

== ENCOUNTER 2018-03-23 19:10 | Emergency (ER) | payer MEDICAID ==
[2018-03-23 19:20] VITALS: RESP 18
[2018-03-23] MEDS ORDERED: SODIUM CHLORIDE 0.9% 500 ML IV ONE (19:36)
--- NOTE | 2018-03-23 19:37 | ED ---
General Adult HPI - General Chief complaint: Arrhythmia/Palpitations Stated complaint: PALPATATIONS AND POSS SPIDER BITE Time Seen by Provider: 03/23/18 19:22 Source: patient, RN notes reviewed, old records reviewed Mode of arrival: ambulatory Limitations: no limitations - History of Present Illness Initial comments: 47-year-old male presents for evaluation of palpitations. Symptoms have been present for the past for 5 days. Patient does have history of palpitations, he states he has been told in the past this was secondary to "leaky valve". Patient follows with cardiology. He has history of hypertension. He is a current smoker. Denies any chest pain. Denies shoulder or arm pain. Denies jaw pain. Denies abdominal pain nausea or vomiting. Patient states he has had a cough which she attributes to smoking, he's been taking his albuterol inhaler which she initially thought may be contributing to his symptoms although he refrained for 3 days and this made no difference. - Related Data Home Medications Medication Instructions Recorded Confirmed Omeprazole 20 mg PO BID 04/29/14 03/23/18 Atenolol [Tenormin] 50 mg PO BID 05/21/15 03/23/18 amLODIPine BESYLATE [Norvasc] 10 mg PO DAILY 05/21/15 03/23/18 Hydrocodone/Acetaminophen 1 tab PO TID PRN 03/10/16 03/23/18 [Hydrocodon-Acetaminoph 7.5-325] Simvastatin 40 mg PO HS 03/10/16 03/23/18 cloNIDine HCL [Catapres] 0.2 mg PO TID 03/10/16 03/23/18 Aspirin 81 mg PO DAILY 03/23/16 03/23/18 Ibuprofen [Motrin Ib] 400 - 600 mg PO BID PRN 01/24/18 03/23/18 ALPRAZolam [Xanax] 0.5 mg PO BID PRN 03/23/18 03/23/18 Ipratropium/Albuterol Sulfate 1 puff INHALATION QID 03/23/18 03/23/18 [Combivent Respimat Inhaler] Multivitamins, Thera [Multivitamin 1 tab PO DAILY 03/23/18 03/23/18 (formulary)] QUEtiapine XR [SEROquel XR] 150 mg PO HS 03/23/18 03/23/18 Allergies Allergy/AdvReac Type Severity Reaction Status Date / Time No Known Allergies Allergy Verified 03/23/18 20:13 Review of Systems ROS Statement: Those systems with pertinent positive or pertinent negative responses have been documented in the HPI. ROS Other: All systems not noted in ROS Statement are negative. Past Medical History Past Medical History: Hyperlipidemia, Hypertension Additional Past Medical History / Comment(s): Hx of pancreatitis History of Any Multi-Drug Resistant Organisms: None Reported Past Surgical History: Cholecystectomy, Hernia Repair Past Anesthesia/Blood Transfusion Reactions: No Reported Reaction Past Psychological History: Anxiety, Bipolar Smoking Status: Current every day smoker Past Alcohol Use History: None Reported Past Drug Use History: None Reported - Past Family History Mother Family Medical History: No Reported History General Exam Limitations: no limitations General appearance: alert, in no apparent distress Head exam: Present: atraumatic, normocephalic Eye exam: Present: normal appearance, PERRL ENT exam: Present: normal exam Neck exam: Present: normal inspection. Absent: tenderness, meningismus Respiratory exam: Present: normal lung sounds bilaterally. Absent: respiratory distress, wheezes Cardiovascular Exam: Present: regular rate, normal rhythm GI/Abdominal exam: Present: soft. Absent: distended, guarding Extremities exam: Present: normal inspection, normal capillary refill. Absent: pedal edema Neurological exam: Present: alert, oriented X3, CN II-XII intact. Absent: motor sensory deficit Psychiatric exam: Present: normal affect, normal mood Skin exam: Present: warm, dry, intact. Absent: cyanosis, diaphoretic Course Vital Signs 03/23/18 03/23/18 19:16 19:40 Temperature 98.2 F Pulse Rate 78 Pulse Rate [ 82 Apical] Respiratory 18 Rate Blood Pressure 125/79 O2 Sat by Pulse 97 Oximetry EKG Findings - EKG Comments: EKG Findings:: EKG: Normal sinus rhythm, left axis deviation, moderate voltage criteria for LVH, no ST segment elevation or depression rate of 74, KS interval 172, QRS duration 96, QTC 398 Medical Decision Making - Medical Decision Making 47-year-old male presenting with intermittent palpitations. He does have history of palpitations. EKG shows normal sinus rhythm, chest x-ray obtained is negative for focal pneumonia or acute cardiopulmonary disease. CBC and CMP are unremarkable. Electrolytes within normal limits, troponin negative. Patient is offered observation for repeat echo as he does have history of valvular disease associated with his palpitations. He declines. He has an appointment in the morning with his primary care physician. He will maintain this appointment. He will return with worsening or changing symptoms. - Lab Data Result diagrams: 03/23/18 19:38 03/23/18 19:38 Lab Results 03/23/18 03/23/18 03/23/18 Range/Units 19:38 19:38 19:38 WBC 9.5 (3.8-10.6) k/uL RBC 4.72 (4.30-5.90) m/uL Hgb 13.4 (13.0-17.5) gm/dL Hct 40.2 (39.0-53.0) % MCV 85.3 (80.0-100.0) fL MCH 28.4 (25.0-35.0) pg MCHC 33.3 (31.0-37.0) g/dL RDW 13.4 (11.5-15.5) % Plt Count 182 (150-450) k/uL Neutrophils % 62 % Lymphocytes % 25 % Monocytes % 7 % Eosinophils % 3 % Basophils % 1 % Neutrophils # 5.9 (1.3-7.7) k/uL Lymphocytes # 2.3 (1.0-4.8) k/uL Monocytes # 0.7 (0-1.0) k/uL Eosinophils # 0.3 (0-0.7) k/uL Basophils # 0.1 (0-0.2) k/uL PT (9.0-12.0) sec INR (<1.2) APTT (22.0-30.0) sec Sodium 138 (137-145) mmol/L Potassium 3.8 (3.5-5.1) mmol/L Chloride 105 (98-107) mmol/L Carbon Dioxide 23 (22-30) mmol/L Anion Gap 10 mmol/L BUN 11 (9-20) mg/dL Creatinine 0.97 (0.66-1.25) mg/dL Est GFR (CKD-EPI)AfAm >90 (>60 ml/min/1.73 sqM) Est GFR (CKD-EPI)NonAf >90 (>60 ml/min/1.73 sqM) Glucose 100 H (74-99) mg/dL Calcium 9.0 (8.4-10.2) mg/dL Magnesium 1.6 (1.6-2.3) mg/dL Total Bilirubin 0.4 (0.2-1.3) mg/dL AST 41 (17-59) U/L ALT 56 (21-72) U/L Alkaline Phosphatase 71 (38-126) U/L Total Creatine Kinase 205 H (55-170) U/L CK-MB (CK-2) 2.2 (0.0-2.4) ng/mL CK-MB (CK-2) Rel Index 1.1 Troponin I <0.012 (0.000-0.034) ng/mL Total Protein 7.0 (6.3-8.2) g/dL Albumin 4.3 (3.5-5.0) g/dL 03/23/18 Range/Units 19:38 WBC (3.8-10.6) k/uL RBC (4.30-5.90) m/uL Hgb (13.0-17.5) gm/dL Hct (39.0-53.0) % MCV (80.0-100.0) fL MCH (25.0-35.0) pg MCHC (31.0-37.0) g/dL RDW (11.5-15.5) % Plt Count (150-450) k/uL Neutrophils % % Lymphocytes % % Monocytes % % Eosinophils % % Basophils % % Neutrophils # (1.3-7.7) k/uL Lymphocytes # (1.0-4.8) k/uL Monocytes # (0-1.0) k/uL Eosinophils # (0-0.7) k/uL Basophils # (0-0.2) k/uL PT 9.9 (9.0-12.0) sec INR 1.0 (<1.2) APTT 23.7 (22.0-30.0) sec Sodium (137-145) mmol/L Potassium (3.5-5.1) mmol/L Chloride (98-107) mmol/L Carbon Dioxide (22-30) mmol/L Anion Gap mmol/L BUN (9-20) mg/dL Creatinine (0.66-1.25) mg/dL Est GFR (CKD-EPI)AfAm (>60 ml/min/1.73 sqM) Est GFR (CKD-EPI)NonAf (>60 ml/min/1.73 sqM) Glucose (74-99) mg/dL Calcium (8.4-10.2) mg/dL Magnesium (1.6-2.3) mg/dL Total Bilirubin (0.2-1.3) mg/dL AST (17-59) U/L ALT (21-72) U/L Alkaline Phosphatase (38-126) U/L Total Creatine Kinase (55-170) U/L CK-MB (CK-2) (0.0-2.4) ng/mL CK-MB (CK-2) Rel Index Troponin I (0.000-0.034) ng/mL Total Protein (6.3-8.2) g/dL Albumin (3.5-5.0) g/dL Disposition Clinical Impression: Palpitations Disposition: HOME SELF-CARE Condition: Good Instructions: Palpitations (ED) Is patient prescribed a controlled substance at d/c from ED?: No Referrals: Сергей Elizabeth MD [Primary Care Provider] - 1-2 days Jabari Sorto MD [STAFF PHYSICIAN] - 1-2 days Time of Disposition: 20:53
[2018-03-23 19:48] LABS: Basophils # (A) 0.1 k/uL (0-0.2); Basophils % (A) 1 %; Eosinophils # (A) 0.3 k/uL (0-0.7); Eosinophils % (A) 3 %; HCT 40.2 % (39.0-53.0); HGB 13.4 gm/dL (13.0-17.5); Lymphocytes # (A) 2.3 k/uL (1.0-4.8); Lymphocytes % (A) 25 %; MCH 28.4 pg (25.0-35.0); MCHC 33.3 g/dL (31.0-37.0); MCV 85.3 fL (80.0-100.0); Mean Platelet Volume 9.3; Monocytes # (A) 0.7 k/uL (0-1.0); Monocytes % (A) 7 %; Neutrophils # (A) 5.9 k/uL (1.3-7.7); Neutrophils % (A) 62 %; Platelet Count 182 k/uL (150-450); RBC 4.72 m/uL (4.30-5.90); RDW 13.4 % (11.5-15.5); WBC 9.5 k/uL (3.8-10.6)
[2018-03-23 19:59] LABS: ALT 56 U/L (21-72); AST 41 U/L (17-59); Albumin 4.3 g/dL (3.5-5.0); Alkaline Phosphatase 71 U/L (38-126); Anion Gap 10 mmol/L; Blood Urea Nitrogen 11 mg/dL (9-20); Carbon Dioxide 23 mmol/L (22-30); Chloride 105 mmol/L (98-107); Glucose 100 mg/dL (74-99); Magnesium 1.6 mg/dL (1.6-2.3); Potassium 3.8 mmol/L (3.5-5.1); Sodium 138 mmol/L (137-145); Total Bilirubin 0.4 mg/dL (0.2-1.3)
--- NOTE | 2018-03-23 20:03 | XR ---
EXAMINATION: XR chest 2V DATE AND TIME: 03/23/2018 7:56 PM CLINICAL INDICATION: dysrhythmia TECHNIQUE: PA and lateral COMPARISON: 07/23/2017 FINDINGS: The lungs are clear. The pleural spaces are negative. The cardiac silhouette is not enlarged. The remainder of the mediastinal silhouette is unremarkable. The skeletal structures and soft tissues are negative for acute findings. IMPRESSION: NO ACUTE PROCESS.
[2018-03-23 20:16] LABS: Creatine Kinase 205 U/L (55-170)
[2018-03-23 20:30] LABS: Creatine Kinase MB 2.2 ng/mL (0.0-2.4); Partial Thromboplastin Time 23.7 sec (22.0-30.0); Prothrombin Time 9.9 sec (9.0-12.0); Troponin I <0.012 ng/mL (0.000-0.034)
[2018-03-23 21:01] VITALS: BP 157/87; PULSE 89; TEMP 97
== END 2018-03-23 21:01 | disposition home or self-care (01) ==
LOC: EC 19:10
DX: R00.2 Palpitations (principal); R05 Cough; E78.5 Hyperlipidemia, unspecified; I10 Essential (primary) hypertension; F31.9 Bipolar disorder, unspecified; F17.200 Nicotine dependence, unspecified, uncomplicated; Z79.82 Long term (current) use of aspirin; Z79.899 Other long term (current) drug therapy
CPT/HCPCS: 36415; 71046; 80053; 82550; 82553; 83735; 84484; 85025; 85610; 85730; 93005; 96360; 99285

== ENCOUNTER → 2018-04-11 | Outpatient (CLI) | payer MEDICAID ==
--- NOTE | 2018-04-11 12:19 | ECHOF ---
Referral Reason:R00.2 palpitations MEASUREMENTS -------- HEIGHT: 195.6 cm WEIGHT: 117.0 kg BP: RVIDd: 3.1 cm (< 3.3) IVSd: 1.2 cm (0.6 - 1.1) LVIDd: 5.5 cm (3.9 - 5.3) LVPWd: 1.3 cm (0.6 - 1.1) IVSs: 1.5 cm LVIDs: 4.2 cm LVPWs: 1.5 cm LAESV Index (A-L): 28.05 ml/m Ao Diam: 3.2 cm (2.0 - 3.7) AV Cusp: 1.8 cm (1.5 - 2.6) LA Diam: 3.6 cm (2.7 - 3.8) MV E Jesus Alberto: 0.68 m/s MV DecT: 305 ms MV A Jesus Alberto: 0.78 m/s MV E/A Ratio: 0.88 RAP: 5.00 mmHg RVSP: 28.10 mmHg FINDINGS -------- Sinus rhythm. This was a technically good study. The left ventricular size is normal. There is mild concentric left ventricular hypertrophy. Overa ll left ventricular systolic function is normal with, an EF between 55 - 60 %. The right ventricle is normal in size and function. Normal LA size by volume 22+/-6 ml/m2. The right atrium is normal in size. The aortic valve is trileaflet, and appears structurally normal. No aortic stenosis or regurgitation. The mitral valve leaflets are mildly thickened. There is trace to mild mitral regurgitation. Mild tricuspid regurgitation present. Right ventricular systolic pressure is normal at < 35 mmHg. There is no evidence of pulmonary hypertension. Trace/mild (physiologic) pulmonic regurgitation. The aortic root size is normal. Normal inferior vena cava with normal inspiratory collapse consistent with estimated right atrial pre ssure of 5 mmHg. There is no pericardial effusion. CONCLUSIONS -------- 1. Sinus rhythm. 2. This was a technically good study. 3. The left ventricular size is normal. 4. There is mild concentric left ventricular hypertrophy. 5. Overall left ventricular systolic function is normal with, an EF between 55 - 60 %. 6. Normal LA size by volume 22+/-6 ml/m2. 7. The aortic valve is trileaflet, and appears structurally normal. No aortic stenosis or regurgitati on. 8. The mitral valve leaflets are mildly thickened. 9. There is trace to mild mitral regurgitation. 10. Mild tricuspid regurgitation present. 11. Right ventricular systolic pressure is normal at < 35 mmHg. 12. There is no evidence of pulmonary hypertension. 13. Trace/mild (physiologic) pulmonic regurgitation. 14. The aortic root size is normal. 15. There is no pericardial effusion. COMBO WELDER: Joel Parker RDCS
== END | disposition home or self-care (01) ==
LOC: RADECHMAIN 10:37
PROVIDERS: ATTEND Family Medicine
DX: I07.1 Rheumatic tricuspid insufficiency (principal); I38 Endocarditis, valve unspecified; I05.9 Rheumatic mitral valve disease, unspecified
CPT/HCPCS: 93306

== ENCOUNTER 2018-04-29 18:23 | Emergency (ER) | payer MEDICAID, OTHER ==
[2018-04-29 18:29] VITALS: TEMP 98.3
--- NOTE | 2018-04-29 18:32 | ED ---
Eye Problem HPI - General Chief complaint: Eye Problems Stated complaint: [employer]-Metal in Eye Time Seen by Provider: 04/29/18 18:25 Source: patient, RN notes reviewed Mode of arrival: ambulatory Limitations: no limitations - History of Present Illness Initial comments: This is a 47-year-old male who presents to the emergency department with chief complaint of work-related right eyebrow. Patient is an employee here at [employer]. Patient states that he was replacing ceiling tiles and his glasses were not on appropriately. He states that pieces of metal fell into his right eye. He did flush his eye out with a bottle of saline but still has foreign body sensation. He requests to have his eye flushed. Denies vision changes, blurred vision or significant eye pain. Denies any other injuries. Denies recent fevers or chills, chest pain shortness of breath, abdominal pain, nausea or vomiting. - Related Data Home Medications Medication Instructions Recorded Confirmed Omeprazole 20 mg PO BID 04/29/14 03/23/18 Atenolol [Tenormin] 50 mg PO BID 05/21/15 03/23/18 amLODIPine BESYLATE [Norvasc] 10 mg PO DAILY 05/21/15 03/23/18 Hydrocodone/Acetaminophen 1 tab PO TID PRN 03/10/16 03/23/18 [Hydrocodon-Acetaminoph 7.5-325] Simvastatin 40 mg PO HS 03/10/16 03/23/18 cloNIDine HCL [Catapres] 0.2 mg PO TID 03/10/16 03/23/18 Aspirin 81 mg PO DAILY 03/23/16 03/23/18 Ibuprofen [Motrin Ib] 400 - 600 mg PO BID PRN 01/24/18 03/23/18 ALPRAZolam [Xanax] 0.5 mg PO BID PRN 03/23/18 03/23/18 Ipratropium/Albuterol Sulfate 1 puff INHALATION QID 03/23/18 03/23/18 [Combivent Respimat Inhaler] Multivitamins, Thera [Multivitamin 1 tab PO DAILY 03/23/18 03/23/18 (formulary)] QUEtiapine XR [SEROquel XR] 150 mg PO HS 03/23/18 03/23/18 Allergies Allergy/AdvReac Type Severity Reaction Status Date / Time No Known Allergies Allergy Verified 03/23/18 20:13 Review of Systems ROS Statement: Those systems with pertinent positive or pertinent negative responses have been documented in the HPI. ROS Other: All systems not noted in ROS Statement are negative. Past Medical History Past Medical History: Hyperlipidemia, Hypertension Additional Past Medical History / Comment(s): Hx of pancreatitis History of Any Multi-Drug Resistant Organisms: None Reported Past Surgical History: Cholecystectomy, Hernia Repair Past Anesthesia/Blood Transfusion Reactions: No Reported Reaction Past Psychological History: Anxiety, Bipolar Smoking Status: Current every day smoker Past Alcohol Use History: None Reported Past Drug Use History: None Reported - Past Family History Mother Family Medical History: No Reported History General Exam - General Exam Comments Initial Comments: General: Awake and alert, well-developed; in no apparent distress. HEENT: Head atraumatic, normocephalic. Pupils are equal, round and reactive to light. Extraocular movements intact. Right conjunctiva is injected. Multiple flecks of metallic foreign substance noted on surface of right eye. Oropharynx moist without erythema or exudate. Neck: Supple. Normal ROM. Cardiovascular: Regular rate and rhythm. No murmurs, rubs or gallops. Chest symmetrical. Respiratory: Lungs clear to auscultation bilaterally. No wheezes, rales or rhonchi. Normal respiratory effort with no use of accessory muscles. Musculoskeletal: Normal ROM, no tenderness bilateral upper and lower extremities. Ambulating normally. Skin: [place], warm and dry without rashes or lesions. Neurological: Alert and oriented x3. CN II-XII grossly intact. Speech is fluent and answers are appropriate. No focal neuro deficits. Psychiatric: Normal mood and affect. No overt signs of depression or anxiety noted. Limitations: no limitations Course Vital Signs 04/29/18 18:25 Temperature 98.3 F Pulse Rate 72 Respiratory 18 Rate Blood Pressure 132/73 O2 Sat by Pulse 97 Oximetry Medical Decision Making - Medical Decision Making This is a 47-year-old male who presents to the emergency department with chief complaint of right eye foreign body. Patient is an employee here at [employer]. He was working on ceiling tiles when metallic pieces fell into his right eye. Patient reports foreign body sensation. On physical examination, there are multiple metallic flecks noted overlying the right eye. The eye was irrigated with normal saline using a Camilo lens. Patient was reexamined and small flecks still remained. Case was discussed with attending physician, Dr. Phillips who recommended trying a magnet. A magnet was used and no further foreign bodies were identified. No abrasions or ulcerations are noted with fluorescein staining. Patient denies any vision changes. He will be started on erythromycin ointment for the next 3 days and given ophthalmology follow-up if needed. Patient is up-to-date with his tetanus vaccination. Vital signs are stable and he is in no acute distress. He will be discharged home at this time. He is in agreement and voices understanding. All questions were answered. Disposition Clinical Impression: Eye foreign body Disposition: HOME SELF-CARE Condition: Good Instructions: Eye Foreign Body (ED), Erythromycin (Into the eye) Additional Instructions: Please apply erythromycin ointment to the affected eye 4 times a day for the next 3 days. Please follow up with ophthalmology if any worsening of symptoms or new symptoms arise. Please follow up with primary care provider within 1-2 days. Return to emergency department if symptoms should worsen or any concerns arise. Is patient prescribed a controlled substance at d/c from ED?: No Referrals: Сергей Elizabeth MD [Primary Care Provider] - 1-2 days Issa Gaines MD [STAFF PHYSICIAN] - 1-2 days Time of Disposition: 19:29
[2018-04-29] MEDS ORDERED: ERYTHROMYCIN 5 MG/GM OPHTH OINT 3.5 GM TUBE RIGHT EYE STA (19:24)
[2018-04-29 20:07] VITALS: BP 122/56; PULSE 75; RESP 20
== END 2018-04-29 20:00 | disposition home or self-care (01) ==
LOC: EC 18:23
DX: T15.91XA Foreign body on external eye, part unspecified, right eye, initial encounter (principal); E78.5 Hyperlipidemia, unspecified; I10 Essential (primary) hypertension; F31.9 Bipolar disorder, unspecified; F17.200 Nicotine dependence, unspecified, uncomplicated; Z79.82 Long term (current) use of aspirin; Z79.899 Other long term (current) drug therapy; W22.8XXA Striking against or struck by other objects, initial encounter; Y92.69 Other specified industrial and construction area as the place of occurrence of the external cause; Y99.0 Civilian activity done for income or pay
CPT/HCPCS: 99283

== ENCOUNTER 2019-01-19 14:11 | Emergency (ER) | payer MEDICAID, OTHER ==
[2019-01-19] MEDS ORDERED: ACETAMINOPHEN TAB 325 MG TAB PO STA (15:15)
--- NOTE | 2019-01-19 15:33 | XR ---
Right foot HISTORY: Trauma 2 days prior, pain 3 views of the right foot Bone mineralization, joint spaces and alignment are maintained with exception of mild hallux valgus deformity. IMPRESSION: No fracture or dislocation.
--- NOTE | 2019-01-19 15:59 | ED ---
General Adult HPI - General Chief complaint: Extremity Injury, Lower Stated complaint: IHS-Ankle Injury Time Seen by Provider: 01/19/19 14:39 Source: patient Mode of arrival: ambulatory Limitations: no limitations - History of Present Illness Initial comments: Patient is a 48-year-old male presenting to emergency Department with right ankle pain. Patient reports working on a ladder when he twisted his ankle causing severe pain 2 days ago. Patient reports he was at work the following day and continues to use the foot to move heavy objects. Patient reports when he woke up this morning he developed severe pain in the right foot and he was not able to bear weight. Patient report throbbing pain along the lateral malleoli which does not radiate anywhere. Patient also reports mild swelling but denies skin discoloration, erythema. Patient reports the pain is alleviated with rest and exacerbated with inversion and eversion and plantar flexion. Patient reports taking ibuprofen 800 to alleviate the symptoms. 48-year-old twisted his ankle 2 days ago while working on a ladder.. Patient Using a while at work and made it worse. Patient will plantarflexion inversion and eversion. No ecchymosis or anything else. Mild swelling on the lateral malleoli. Right foot. Patient given crutches and Mauricio bandage. - Related Data Home Medications Medication Instructions Recorded Confirmed Omeprazole 20 mg PO BID 04/29/14 06/30/18 Hydrocodone/Acetaminophen 1 tab PO TID PRN 03/10/16 06/30/18 [Hydrocodone-Acetamin 7.5-325] Simvastatin 40 mg PO HS 03/10/16 06/30/18 cloNIDine HCL [Catapres] 0.2 mg PO TID 03/10/16 06/30/18 Aspirin 81 mg PO DAILY 03/23/16 06/30/18 Ibuprofen [Motrin Ib] 400 - 600 mg PO BID PRN 01/24/18 06/30/18 ALPRAZolam [Xanax] 0.5 mg PO BID PRN 03/23/18 06/30/18 QUEtiapine XR [SEROquel XR] 150 mg PO HS 03/23/18 06/30/18 Diltiazem HCl [Diltiazem 24Hr ER 300 mg PO DAILY 06/30/18 06/30/18 (LA)] Metoprolol Succinate [Toprol XL] 200 mg PO 06/30/18 06/30/18 Previous Rx's Medication Instructions Recorded Amoxicillin/Potassium Clav 1 tab PO BID 3 Days #6 tab 07/02/18 [Augmentin 875-125 Tablet] Ipratropium/Albuterol Sulfate 2 puff INHALATION QID #1 inhaler 07/02/18 [Combivent Respimat Inhaler] Nicotine 21Mg/24Hr Patch [Habitrol] 1 patch TRANSDERM DAILY #30 patch 07/02/18 predniSONE 10 mg PO DAILY #30 tab 07/02/18 Allergies Allergy/AdvReac Type Severity Reaction Status Date / Time No Known Allergies Allergy Verified 01/19/19 14:33 Review of Systems ROS Statement: Those systems with pertinent positive or pertinent negative responses have been documented in the HPI. ROS Other: All systems not noted in ROS Statement are negative. Past Medical History Past Medical History: GERD/Reflux, Hyperlipidemia, Hypertension Additional Past Medical History / Comment(s): Hx of pancreatitis History of Any Multi-Drug Resistant Organisms: None Reported Past Surgical History: Cholecystectomy, Hernia Repair Past Anesthesia/Blood Transfusion Reactions: No Reported Reaction Past Psychological History: Anxiety, Bipolar Smoking Status: Current every day smoker Past Alcohol Use History: None Reported Past Drug Use History: None Reported - Past Family History Mother Family Medical History: No Reported History Father Family Medical History: Pneumonia General Exam - General Exam Comments Initial Comments: General: Well-developed well-nourished distress HEENT: Normocephalic/atraumatic, PERLL, pharynx erythema, swallowing well, EAC no erythema, no exudates, TM clear, no cervical lymph nodes Neck: Supple, nontender, trachea midline Chest/Lungs: Normal respirations, no signs of respiratory distress clear to auscultation bilaterally no wheezes, rales, rhonchi Cardiac: Regular rate and rhythm, normal S1-S2, no murmurs rubs or gallops Abdomen/GI: Soft nontender, bowel sounds equal or quadrant x4, no guarding, no rebound no CVA tenderness Musculoskeletal: Nontender, lateral range of motion on the right foot due to pain. Tenderness on palpation along the lateral malleoli. Tenderness with plantar flexion and inversion and eversion. +2 dorsalis pedis and posterior tibialis, bilaterally. Skin: Warmth, no rashes or lesions, no cyanosis or diaphoresis Neurologic: AAO x 3, CN 2-12 intact, Psychiatric: Mood and affect normal, judgment normal Limitations: no limitations Course Vital Signs 01/19/19 01/19/19 14:30 16:32 Temperature 98.2 F 98 F Pulse Rate 72 71 Respiratory 20 18 Rate Blood Pressure 124/72 129/57 O2 Sat by Pulse 99 94 L Oximetry Procedures - Orthopedic Splinting/Casting Injury #1 Side: right Lower Extremity Injury Location: ankle Lower Extremity Immobilizer: Mauricio wrap Other Orthopedic Equipment: crutches Medical Decision Making - Medical Decision Making Patient is a 48-year-old male presenting to emergency Department with right ankle pain. X-ray of the right foot and ankle is negative for acute fractures or dislocations. Based on physical examination, history and imaging aspect of patient to have an ankle sprain. Mauricio bandage was placed at site of injury. Patient was given a prescription for crutches. Patient advised to keep the leg elevated and to alternate between Tylenol and ibuprofen for pain control. Patient advised to keep ice compress to minimize swelling. Patient advised to follow-up with orthopedics. Patient advised to return to emergency department if symptoms worsen. Disposition Clinical Impression: Mild ankle sprain Disposition: HOME SELF-CARE Condition: Stable Instructions (If sedation given, give patient instructions): Ankle Sprain (ED) Additional Instructions: Please keep left leg elevated. Please alternate between Tylenol and ibuprofen for pain control. Please use crutches and stay away from weightbearing. Please follow with orthopedics. Please return to emergency department if symptoms worsen. Is patient prescribed a controlled substance at d/c from ED?: No Referrals: Сергей Elizabeth MD [Primary Care Provider] - 1-2 days Gallito Love DO [Doctor of Osteopathic Medicine] - 1-2 days Time of Disposition: 15:59
[2019-01-19 16:33] VITALS: BP 129/57; PULSE 71; RESP 18; TEMP 98
== END 2019-01-19 16:32 | disposition home or self-care (01) ==
LOC: EC 14:11
DX: S93.401A Sprain of unspecified ligament of right ankle, initial encounter (principal); K21.9 Gastro-esophageal reflux disease without esophagitis; E78.5 Hyperlipidemia, unspecified; I10 Essential (primary) hypertension; F31.9 Bipolar disorder, unspecified; F41.9 Anxiety disorder, unspecified; F17.200 Nicotine dependence, unspecified, uncomplicated; Z79.82 Long term (current) use of aspirin; Z79.899 Other long term (current) drug therapy; X50.1XXA Overexertion from prolonged static or awkward postures, initial encounter; Y99.0 Civilian activity done for income or pay
CPT/HCPCS: 99283

== ENCOUNTER → 2019-01-25 | Outpatient (CLI) | payer OTHER ==
--- NOTE | 2019-01-25 17:45 | XR ---
EXAMINATION TYPE: XR ankle complete RT DATE OF EXAM: 01/25/2019 COMPARISON: NONE HISTORY: 48-year-old male pain after fall TECHNIQUE: 3 views FINDINGS: Circumferential soft tissue swelling at the ankle. Ankle mortise is congruent with preservation of th e distal tibiofibular overlap. Capsular distention of the dorsal talonavicular joint. No delineation to the Achilles tendon. IMPRESSION: Circumferential soft tissue swelling. Some capsular distention of the talonavicular joint could refle ct a joint sprain. No acute osseous abnormality seen.
== END | disposition home or self-care (01) ==
LOC: RADXRMAIN 13:15
PROVIDERS: ATTEND Emergency Medicine
DX: M25.871 Other specified joint disorders, right ankle and foot (principal); M79.89 Other specified soft tissue disorders

== ENCOUNTER → 2019-06-27 | Outpatient (CLI) | payer MEDICAID ==
[2019-06-27 17:11] LABS: HCT 41.3 % (39.0-53.0); HGB 14.3 gm/dL (13.0-17.5); MCH 30.2 pg (25.0-35.0); MCHC 34.6 g/dL (31.0-37.0); MCV 87.1 fL (80.0-100.0); Platelet Count 209 k/uL (150-450); RBC 4.74 m/uL (4.30-5.90); RDW 12.7 % (11.5-15.5); WBC 9.2 k/uL (3.8-10.6)
[2019-06-28 01:28] LABS: T4, Free (Free Thyroxine) 1.2 ng/dL (0.80-1.80)
[2019-06-28 01:55] LABS: Hemoglobin A1C 5.9 % (4.0-6.0)
[2019-06-28 02:10] LABS: Albumin 4.9 g/dL (3.80-4.90); Albumin/Globulin Ratio 2.45 (1.60-3.17); Anion Gap 11.3 mmol/L (4.00-12.00); Calcium 9.5 mg/dL (8.7-10.3); Carbon Dioxide 23.7 mmol/L (21.6-31.8); Chol/HDL Ratio 4.86; Potassium 4.2 mmol/L (3.5-5.5); Total Bilirubin 0.3 mg/dL (0.2-1.2); Total Protein 6.9 g/dL (6.2-8.2)
== END | disposition home or self-care (01) ==
LOC: LABWHC1 16:56
PROVIDERS: ATTEND Family Medicine
DX: I10 Essential (primary) hypertension (principal)
CPT/HCPCS: 36415; 80053; 80061; 82306; 83036; 83721; 84403; 84439; 84443; 85027

== ENCOUNTER 2019-08-05 19:41 | Emergency (ER) | payer MEDICAID, OTHER ==
[2019-08-05 19:47] VITALS: TEMP 97.9
[2019-08-05] MEDS ORDERED: SODIUM CHLORIDE 0.9% 1,000 ML IV STA (20:01)
[2019-08-05] MEDS ORDERED: KETOROLAC 30 MG/ML 1 ML VIAL IVP STA (20:01)
[2019-08-05 20:33] LABS: Appearance,Urine Clear (Clear); Basophils # (A) 0.1 k/uL (0-0.2); Basophils % (A) 1 %; Bilirubin,Urine Negative (Negative); Blood,Urine Negative (Negative); Color,Urine Light Yellow; Eosinophils # (A) 0.3 k/uL (0-0.7); Eosinophils % (A) 2 %; Glucose,Urine (UA) Negative (Negative); HCT 39.6 % (39.0-53.0); HGB 13.7 gm/dL (13.0-17.5); Ketones,Urine Negative (Negative); Leukocyte Esterase,Urine Negative (Negative); Lymphocytes # (A) 2.1 k/uL (1.0-4.8); Lymphocytes % (A) 18 %; MCH 30.1 pg (25.0-35.0); MCHC 34.7 g/dL (31.0-37.0); MCV 86.7 fL (80.0-100.0); Monocytes # (A) 0.7 k/uL (0-1.0); Monocytes % (A) 6 %; Neutrophils # (A) 8.8 k/uL (1.3-7.7); Neutrophils % (A) 72 %; Nitrite,Urine Negative (Negative); Platelet Count 204 k/uL (150-450); Protein,Urine Negative (Negative); RBC 4.57 m/uL (4.30-5.90); RDW 12.7 % (11.5-15.5); Specific Gravity,Urine 1.002 (1.001-1.035); Urobilinogen,Urine <2.0 mg/dL (<2.0); WBC 12.2 k/uL (3.8-10.6)
[2019-08-05 20:42] LABS: ALT 50 U/L (4-49); AST 45 U/L (17-59); African American GFR (CKD) >90 (>60 ml/min/1.73 sqM); Albumin 4.3 g/dL (3.5-5.0); Alkaline Phosphatase 90 U/L (38-126); Amylase 36 U/L (30-110); Anion Gap 10 mmol/L; Blood Urea Nitrogen 8 mg/dL (9-20); Calcium 9.3 mg/dL (8.4-10.2); Carbon Dioxide 25 mmol/L (22-30); Chloride 102 mmol/L (98-107); Glucose 106 mg/dL (74-99); Non-African American GFR(CKD) >90 (>60 ml/min/1.73 sqM); Potassium 3.6 mmol/L (3.5-5.1); Sodium 137 mmol/L (137-145); Total Bilirubin 0.5 mg/dL (0.2-1.3); Total Protein 7.1 g/dL (6.3-8.2)
--- NOTE | 2019-08-05 20:54 | ED ---
General Adult HPI - General Chief complaint: Abdominal Pain Stated complaint: Hernia issues Time Seen by Provider: 08/05/19 19:49 Source: patient, RN notes reviewed Mode of arrival: ambulatory Limitations: no limitations - History of Present Illness Initial comments: 48-year-old male with a past medical history of hyperlipidemia, hypertension, pancreatitis, GERD, umbilical hernia repair with mesh presents to the emergency department for umbilical pain. Patient states that he was lifting something heavy at work when he felt a sudden pain and burning any his umbilicus. States it has not resolved. Denies nausea or vomiting. Denies diarrhea. Denies fevers or chills. Patient has no other complaints at this time including shortness of breath, chest pain, nausea or vomiting, headache, or visual changes. - Related Data Home Medications Medication Instructions Recorded Confirmed Omeprazole 20 mg PO BID 04/29/14 06/30/18 Hydrocodone/Acetaminophen 1 tab PO TID PRN 03/10/16 06/30/18 [Hydrocodone-Acetamin 7.5-325] Simvastatin 40 mg PO HS 03/10/16 06/30/18 cloNIDine HCL [Catapres] 0.2 mg PO TID 03/10/16 06/30/18 Aspirin 81 mg PO DAILY 03/23/16 06/30/18 Ibuprofen [Motrin Ib] 400 - 600 mg PO BID PRN 01/24/18 06/30/18 ALPRAZolam [Xanax] 0.5 mg PO BID PRN 03/23/18 06/30/18 QUEtiapine XR [SEROquel XR] 150 mg PO HS 03/23/18 06/30/18 Diltiazem HCl [Diltiazem 24Hr ER 300 mg PO DAILY 06/30/18 06/30/18 (LA)] Metoprolol Succinate [Toprol XL] 200 mg PO 06/30/18 06/30/18 Previous Rx's Medication Instructions Recorded Amoxicillin/Potassium Clav 1 tab PO BID 3 Days #6 tab 07/02/18 [Augmentin 875-125 Tablet] Ipratropium/Albuterol Sulfate 2 puff INHALATION QID #1 inhaler 07/02/18 [Combivent Respimat Inhaler] Nicotine 21Mg/24Hr Patch [Habitrol] 1 patch TRANSDERM DAILY #30 patch 07/02/18 predniSONE 10 mg PO DAILY #30 tab 07/02/18 Allergies Allergy/AdvReac Type Severity Reaction Status Date / Time No Known Allergies Allergy Verified 08/05/19 19:47 Review of Systems ROS Statement: Those systems with pertinent positive or pertinent negative responses have been documented in the HPI. ROS Other: All systems not noted in ROS Statement are negative. Past Medical History Past Medical History: GERD/Reflux, Hyperlipidemia, Hypertension Additional Past Medical History / Comment(s): Hx of pancreatitis History of Any Multi-Drug Resistant Organisms: None Reported Past Surgical History: Cholecystectomy, Hernia Repair Past Anesthesia/Blood Transfusion Reactions: No Reported Reaction Past Psychological History: Anxiety, Bipolar Smoking Status: Current every day smoker Past Alcohol Use History: None Reported Past Drug Use History: None Reported - Past Family History Mother Family Medical History: No Reported History Father Family Medical History: Pneumonia General Exam Limitations: no limitations General appearance: alert, in no apparent distress Head exam: Present: atraumatic, normocephalic, normal inspection Eye exam: Present: normal appearance, PERRL, EOMI. Absent: scleral icterus, conjunctival injection, periorbital swelling ENT exam: Present: normal exam, mucous membranes moist Neck exam: Present: normal inspection, full ROM. Absent: tenderness, meningismus, lymphadenopathy Respiratory exam: Present: normal lung sounds bilaterally. Absent: respiratory distress, wheezes, rales, rhonchi, stridor Cardiovascular Exam: Present: regular rate, normal rhythm, normal heart sounds. Absent: systolic murmur, diastolic murmur, rubs, gallop, clicks GI/Abdominal exam: Present: soft, tenderness (Mid abdominal tenderness around the umbilicus. I do not feel a hernia at this time.), normal bowel sounds. Absent: distended, guarding, rebound, rigid Neurological exam: Present: alert Course Vital Signs 08/05/19 08/05/19 19:43 22:14 Temperature 97.9 F Pulse Rate 77 70 Respiratory 20 18 Rate Blood Pressure 161/100 132/91 O2 Sat by Pulse 98 97 Oximetry Medical Decision Making - Medical Decision Making Patient presents for umbilical pain. I do not see any obvious hernia. He has generalized mid and lower abdominal tenderness. CBC CMP unremarkable. Urinalysis negative. CT abdomen and pelvis shows maybe a very small mesenteric fat containing. Umbilical hernia that may be incarcerated. Dr. Phillips Spoke with Dr. Bhesania about this, recommends outpatient follow-up. Patient's pain was managed here in the emergency department and he will be given Tylenol 3. He'll return if he has any worsening symptoms. Patient is getting a ride home. - Lab Data Result diagrams: 08/05/19 20:19 08/05/19 20:19 Lab Results 08/05/19 08/05/19 08/05/19 Range/Units 20:19 20:19 20:19 WBC 12.2 H (3.8-10.6) k/uL RBC 4.57 (4.30-5.90) m/uL Hgb 13.7 (13.0-17.5) gm/dL Hct 39.6 (39.0-53.0) % MCV 86.7 (80.0-100.0) fL MCH 30.1 (25.0-35.0) pg MCHC 34.7 (31.0-37.0) g/dL RDW 12.7 (11.5-15.5) % Plt Count 204 (150-450) k/uL Neutrophils % 72 % Lymphocytes % 18 % Monocytes % 6 % Eosinophils % 2 % Basophils % 1 % Neutrophils # 8.8 H (1.3-7.7) k/uL Lymphocytes # 2.1 (1.0-4.8) k/uL Monocytes # 0.7 (0-1.0) k/uL Eosinophils # 0.3 (0-0.7) k/uL Basophils # 0.1 (0-0.2) k/uL Sodium 137 (137-145) mmol/L Potassium 3.6 (3.5-5.1) mmol/L Chloride 102 (98-107) mmol/L Carbon Dioxide 25 (22-30) mmol/L Anion Gap 10 mmol/L BUN 8 L (9-20) mg/dL Creatinine 0.85 (0.66-1.25) mg/dL Est GFR (CKD-EPI)AfAm >90 (>60 ml/min/1.73 sqM) Est GFR (CKD-EPI)NonAf >90 (>60 ml/min/1.73 sqM) Glucose 106 H (74-99) mg/dL Plasma Lactic Acid [place]ak (0.7-2.0) mmol/L Calcium 9.3 (8.4-10.2) mg/dL Total Bilirubin 0.5 (0.2-1.3) mg/dL AST 45 (17-59) U/L ALT 50 H (4-49) U/L Alkaline Phosphatase 90 (38-126) U/L Total Protein 7.1 (6.3-8.2) g/dL Albumin 4.3 (3.5-5.0) g/dL Amylase 36 (30-110) U/L Lipase 102 (23-300) U/L Urine Color Light Yellow Urine Appearance Clear (Clear) Urine pH 6.0 (5.0-8.0) Ur Specific [place] 1.002 (1.001-1.035) Urine Protein Negative (Negative) Urine Glucose (UA) Negative (Negative) Urine Ketones Negative (Negative) Urine Blood Negative (Negative) Urine Nitrite Negative (Negative) Urine Bilirubin Negative (Negative) Urine Urobilinogen <2.0 (<2.0) mg/dL Ur Leukocyte Esterase Negative (Negative) 08/05/19 Range/Units 20:19 WBC (3.8-10.6) k/uL RBC (4.30-5.90) m/uL Hgb (13.0-17.5) gm/dL Hct (39.0-53.0) % MCV (80.0-100.0) fL MCH (25.0-35.0) pg MCHC (31.0-37.0) g/dL RDW (11.5-15.5) % Plt Count (150-450) k/uL Neutrophils % % Lymphocytes % % Monocytes % % Eosinophils % % Basophils % % Neutrophils # (1.3-7.7) k/uL Lymphocytes # (1.0-4.8) k/uL Monocytes # (0-1.0) k/uL Eosinophils # (0-0.7) k/uL Basophils # (0-0.2) k/uL Sodium (137-145) mmol/L Potassium (3.5-5.1) mmol/L Chloride (98-107) mmol/L Carbon Dioxide (22-30) mmol/L Anion Gap mmol/L BUN (9-20) mg/dL Creatinine (0.66-1.25) mg/dL Est GFR (CKD-EPI)AfAm (>60 ml/min/1.73 sqM) Est GFR (CKD-EPI)NonAf (>60 ml/min/1.73 sqM) Glucose (74-99) mg/dL Plasma Lactic Acid [place]ak 1.4 (0.7-2.0) mmol/L Calcium (8.4-10.2) mg/dL Total Bilirubin (0.2-1.3) mg/dL AST (17-59) U/L ALT (4-49) U/L Alkaline Phosphatase (38-126) U/L Total Protein (6.3-8.2) g/dL Albumin (3.5-5.0) g/dL Amylase (30-110) U/L Lipase (23-300) U/L Urine Color Urine Appearance (Clear) Urine pH (5.0-8.0) Ur Specific [place] (1.001-1.035) Urine Protein (Negative) Urine Glucose (UA) (Negative) Urine Ketones (Negative) Urine Blood (Negative) Urine Nitrite (Negative) Urine Bilirubin (Negative) Urine Urobilinogen (<2.0) mg/dL Ur Leukocyte Esterase (Negative) Disposition Clinical Impression: Abdominal pain Disposition: HOME SELF-CARE Condition: Good Instructions (If sedation given, give patient instructions): Abdominal Pain (ED) Additional Instructions: Please take Tylenol 3 for pain. Follow-up with surgeon in 1-2 days. Return here to the emergency department if you have any worsening symptoms. Is patient prescribed a controlled substance at d/c from ED?: No Referrals: Brian Francois MD [STAFF PHYSICIAN] - 1-2 days Time of Disposition: 22:24
[2019-08-05] MEDS ORDERED: HYDROmorphone 0.5 MG/0.5 ML SYRINGE IVP STA ×2 (21:18→22:16)
[2019-08-05] MEDS ORDERED: ONDANSETRON 4 MG/2 ML VIAL IVP STA (21:18)
--- NOTE | 2019-08-05 21:44 | CT ---
EXAMINATION TYPE: CT abdomen pelvis w con DATE OF EXAM: 08/05/2019 COMPARISON: 01/08/2018 INDICATION: umbilical pain, hx of hernia DLP: 1804.3 mGycm, Automated exposure control for dose reduction was used. CONTRAST: 100 mL of Isovue 300. Study performed without Oral Contrast TECHNIQUE: Axial images were obtained from above the diaphragm to the pubic rami in the axial plane a t 5 mm thick sections. Reconstructed images are reviewed on the computer in the coronal plane. FINDINGS: Limited CT sections are obtained the lung bases. Mild streak opacities are at the lung bases most li pastora atelectasis. There may be a small nodule at the left lung base adjacent to the major fissure me asuring 0.9 cm. Series 201 image 6. Follow-up is recommended. CT ABDOMEN: Liver: There is mild fatty infiltration liver. Spleen: A calcified adenoma is within the spleen. Pancreas: Normal Adrenal glands: The adrenal glands are normal. Gallbladder: Surgically absent Kidneys: No masses are evident. No hydronephrosis is present. No cysts are present. Delayed images were obtained through the kidneys, which remain unremarkable. Aorta: Vascular calcification is within the aorta. Inferior vena cava: Normal. CT PELVIS: Very small periumbilical hernia with some increased density. Some incarcerated mesenteric fat is not excluded. No loops of bowel are involved. Loops of bowel within the abdomen and pelvis are normal. Study is performed without oral contrast limiting bowel evaluation. Appendix: Not identified. No suspicious tubular structures or inflammatory changes are evident. Urinary bladder: Some anterior wall thickening may be present. Genitourinary structures: Prostate is slightly prominent Osseous structures: No suspicious lytic or sclerotic lesions. IMPRESSIONS: 1. There may be a very small mesenteric fat containing periumbilical hernia. Density is increased bennett ggesting possibility of incarcerated mesenteric fat.
[2019-08-05 22:14] VITALS: BP 132/91; PULSE 70; RESP 18
[2019-08-05] MEDS ORDERED: ACET/COD 300 MG/30 MG STARTER PACK 6 TAB BTL PO STA (22:24)
== END 2019-08-05 22:40 | disposition home or self-care (01) ==
LOC: EC 19:41
DX: R10.84 Generalized abdominal pain (principal); K21.9 Gastro-esophageal reflux disease without esophagitis; E78.5 Hyperlipidemia, unspecified; I10 Essential (primary) hypertension; F31.9 Bipolar disorder, unspecified; F17.200 Nicotine dependence, unspecified, uncomplicated; Z87.19 Personal history of other diseases of the digestive system; Z90.49 Acquired absence of other specified parts of digestive tract; Z98.890 Other specified postprocedural states; Z79.82 Long term (current) use of aspirin; Z79.899 Other long term (current) drug therapy
CPT/HCPCS: 99284 ×2; 96374 ×2; 96375 ×3; 96376 ×2; 96361 ×2; 36415; 80053; 82150; 83605; 83690; 85025; 81003; 74177; J2405; J1885; J1170; Q9967

== ENCOUNTER 2019-11-24 19:28 | Emergency (ER) | payer MEDICAID, OTHER ==
[2019-11-24 19:35] VITALS: RESP 18
[2019-11-24] MEDS ORDERED: MORPHINE SULFATE 4 MG/ML SYRINGE IVP STA (19:47)
[2019-11-24] MEDS ORDERED: SODIUM CHLORIDE 0.9% 1,000 ML IV STA (19:47)
--- NOTE | 2019-11-24 19:50 | ED ---
General Adult HPI - General Chief complaint: Abdominal Pain Stated complaint: Abd pain Time Seen by Provider: 11/24/19 19:36 Source: patient, RN notes reviewed Mode of arrival: EMS Limitations: no limitations - History of Present Illness Initial comments: 49-year-old male with a past medical history of GERD, hyperlipidemia, hypertension, pancreatitis, umbilical hernia with repair presents to the emergency department for a chief complaint of abdominal pain. Patient states this started around 5:00 when he was pushing a bed. States that he feels as if his hernia may be "out." He denies nausea vomiting. He does admit to pain. Denies fevers or chills. Patient has no other complaints at this time including shortness of breath, chest pain, nausea or vomiting, headache, or visual changes. - Related Data Home Medications Medication Instructions Recorded Confirmed Omeprazole 20 mg PO BID 04/29/14 06/30/18 Hydrocodone/Acetaminophen 1 tab PO TID PRN 03/10/16 06/30/18 [Hydrocodone-Acetamin 7.5-325] Simvastatin 40 mg PO HS 03/10/16 06/30/18 cloNIDine HCL [Catapres] 0.2 mg PO TID 03/10/16 06/30/18 Aspirin 81 mg PO DAILY 03/23/16 06/30/18 Ibuprofen [Motrin Ib] 400 - 600 mg PO BID PRN 01/24/18 06/30/18 ALPRAZolam [Xanax] 0.5 mg PO BID PRN 03/23/18 06/30/18 QUEtiapine XR [SEROquel XR] 150 mg PO HS 03/23/18 06/30/18 Diltiazem HCl [Diltiazem HCl 24Hr 300 mg PO DAILY 06/30/18 06/30/18 ER ([place])] Metoprolol Succinate [Toprol XL] 200 mg PO 06/30/18 06/30/18 Previous Rx's Medication Instructions Recorded Amoxicillin/Potassium Clav 1 tab PO BID 3 Days #6 tab 07/02/18 [Augmentin 875-125 Tablet] Ipratropium/Albuterol Sulfate 2 puff INHALATION QID #1 inhaler 07/02/18 [Combivent Respimat Inhaler] Nicotine 21Mg/24Hr Patch [Habitrol] 1 patch TRANSDERM DAILY #30 patch 07/02/18 predniSONE 10 mg PO DAILY #30 tab 07/02/18 traMADol HCL [Ultram] 50 mg PO Q6HR PRN 3 Days #11 tab 08/05/19 Allergies Allergy/AdvReac Type Severity Reaction Status Date / Time No Known Allergies Allergy Verified 11/24/19 19:35 Review of Systems ROS Statement: Those systems with pertinent positive or pertinent negative responses have been documented in the HPI. ROS Other: All systems not noted in ROS Statement are negative. Past Medical History Past Medical History: GERD/Reflux, Hyperlipidemia, Hypertension Additional Past Medical History / Comment(s): Hx of pancreatitis History of Any Multi-Drug Resistant Organisms: None Reported Past Surgical History: Cholecystectomy, Hernia Repair Past Anesthesia/Blood Transfusion Reactions: No Reported Reaction Past Psychological History: Anxiety, Bipolar Smoking Status: Current every day smoker Past Alcohol Use History: Occasional Past Drug Use History: None Reported - Past Family History Mother Family Medical History: No Reported History Father Family Medical History: Pneumonia General Exam Limitations: no limitations General appearance: alert, in no apparent distress Head exam: Present: atraumatic, normocephalic, normal inspection Eye exam: Present: normal appearance, PERRL, EOMI. Absent: scleral icterus, conjunctival injection, periorbital swelling ENT exam: Present: normal exam, mucous membranes moist Neck exam: Present: normal inspection, full ROM. Absent: tenderness, meningismus, lymphadenopathy Respiratory exam: Present: normal lung sounds bilaterally. Absent: respiratory distress, wheezes, rales, rhonchi, stridor Cardiovascular Exam: Present: regular rate, normal rhythm, normal heart sounds. Absent: systolic murmur, diastolic murmur, rubs, gallop, clicks GI/Abdominal exam: Present: soft, tenderness (Generalized abdominal tenderness), normal bowel sounds. Absent: distended, guarding, rebound, rigid Back exam: Absent: CVA tenderness (R), CVA tenderness (L) Neurological exam: Present: alert Course Vital Signs 11/24/19 11/24/19 19:30 20:13 Temperature 97.9 F Pulse Rate 92 72 Respiratory 18 18 Rate Blood Pressure 172/98 161/105 O2 Sat by Pulse 98 94 L Oximetry Medical Decision Making - Medical Decision Making Vital signs stable. CBC CMP is unremarkable. Lactic acid is within normal limits. Urinalysis is negative. CT with contrast does show a stable small fat- containing periumbilical hernia. Mild abdomen. Change within the hernia sac is not excluded. There is mild localized wall thickening involving the transverse colon, I discussed follow-up with GI for this. At this time patient was given additional pain medication and is feeling much better. He will follow up with his surgeon and primary care. He'll be given Tylenol 3 for home. He will return for any worsening symptoms. - Lab Data Result diagrams: 11/24/19 19:55 11/24/19 19:55 Lab Results 11/24/19 11/24/19 11/24/19 Range/Units 19:55 19:55 19:55 WBC 10.2 (3.8-10.6) k/uL RBC 4.56 (4.30-5.90) m/uL Hgb 13.5 (13.0-17.5) gm/dL Hct 39.7 (39.0-53.0) % MCV 87.2 (80.0-100.0) fL MCH 29.7 (25.0-35.0) pg MCHC 34.1 (31.0-37.0) g/dL RDW 13.3 (11.5-15.5) % Plt Count 202 (150-450) k/uL Neutrophils % 61 % Lymphocytes % 25 % Monocytes % 7 % Eosinophils % 4 % Basophils % 1 % Neutrophils # 6.2 (1.3-7.7) k/uL Lymphocytes # 2.6 (1.0-4.8) k/uL Monocytes # 0.8 (0-1.0) k/uL Eosinophils # 0.4 (0-0.7) k/uL Basophils # 0.1 (0-0.2) k/uL Sodium 134 L (137-145) mmol/L Potassium 3.8 (3.5-5.1) mmol/L Chloride 99 (98-107) mmol/L Carbon Dioxide 23 (22-30) mmol/L Anion Gap 12 mmol/L BUN 10 (9-20) mg/dL Creatinine 0.92 (0.66-1.25) mg/dL Est GFR (CKD-EPI)AfAm >90 (>60 ml/min/1.73 sqM) Est GFR (CKD-EPI)NonAf >90 (>60 ml/min/1.73 sqM) Glucose 86 (74-99) mg/dL Plasma Lactic Acid [place] 1.2 (0.7-2.0) mmol/L Calcium 9.1 (8.4-10.2) mg/dL Total Bilirubin 0.5 (0.2-1.3) mg/dL AST 38 (17-59) U/L ALT 39 (4-49) U/L Alkaline Phosphatase 85 (38-126) U/L Total Protein 7.3 (6.3-8.2) g/dL Albumin 4.6 (3.5-5.0) g/dL Amylase 32 (30-110) U/L Lipase 112 (23-300) U/L Urine Color Urine Appearance (Clear) Urine pH (5.0-8.0) Ur Specific [place] (1.001-1.035) Urine Protein (Negative) Urine Glucose (UA) (Negative) Urine Ketones (Negative) Urine Blood (Negative) Urine Nitrite (Negative) Urine Bilirubin (Negative) Urine Urobilinogen (<2.0) mg/dL Ur Leukocyte Esterase (Negative) 11/24/19 Range/Units 20:15 WBC (3.8-10.6) k/uL RBC (4.30-5.90) m/uL Hgb (13.0-17.5) gm/dL Hct (39.0-53.0) % MCV (80.0-100.0) fL MCH (25.0-35.0) pg MCHC (31.0-37.0) g/dL RDW (11.5-15.5) % Plt Count (150-450) k/uL Neutrophils % % Lymphocytes % % Monocytes % % Eosinophils % % Basophils % % Neutrophils # (1.3-7.7) k/uL Lymphocytes # (1.0-4.8) k/uL Monocytes # (0-1.0) k/uL Eosinophils # (0-0.7) k/uL Basophils # (0-0.2) k/uL Sodium (137-145) mmol/L Potassium (3.5-5.1) mmol/L Chloride (98-107) mmol/L Carbon Dioxide (22-30) mmol/L Anion Gap mmol/L BUN (9-20) mg/dL Creatinine (0.66-1.25) mg/dL Est GFR (CKD-EPI)AfAm (>60 ml/min/1.73 sqM) Est GFR (CKD-EPI)NonAf (>60 ml/min/1.73 sqM) Glucose (74-99) mg/dL Plasma Lactic Acid [place] (0.7-2.0) mmol/L Calcium (8.4-10.2) mg/dL Total Bilirubin (0.2-1.3) mg/dL AST (17-59) U/L ALT (4-49) U/L Alkaline Phosphatase (38-126) U/L Total Protein (6.3-8.2) g/dL Albumin (3.5-5.0) g/dL Amylase (30-110) U/L Lipase (23-300) U/L Urine Color Colorless Urine Appearance Clear (Clear) Urine pH 5.5 (5.0-8.0) Ur Specific [place] 1.001 (1.001-1.035) Urine Protein Negative (Negative) Urine Glucose (UA) Negative (Negative) Urine Ketones Negative (Negative) Urine Blood Negative (Negative) Urine Nitrite Negative (Negative) Urine Bilirubin Negative (Negative) Urine Urobilinogen <2.0 (<2.0) mg/dL Ur Leukocyte Esterase Negative (Negative) Disposition Clinical Impression: Abdominal pain Disposition: HOME SELF-CARE Condition: Good Instructions (If sedation given, give patient instructions): Abdominal Pain (ED) Additional Instructions: Please follow up with primary care in 1-[address] days to review all CT results for possible GI referral. Follow-up with your surgeon as well. Take Tylenol [address] for [address] not drive or operate machinery while taking this. Return to the emergency department if you have any worsening symptoms. Is patient prescribed a controlled substance at d/c from ED?: No Referrals: Jabari Sorto MD [Primary Care Provider] - 1-2 days Brian Francois MD [STAFF PHYSICIAN] - 1-2 days Time of Disposition: 21:45
[2019-11-24 20:11] LABS: Basophils # (A) 0.1 k/uL (0-0.2); Basophils % (A) 1 %; Eosinophils # (A) 0.4 k/uL (0-0.7); Eosinophils % (A) 4 %; HCT 39.7 % (39.0-53.0); HGB 13.5 gm/dL (13.0-17.5); Lymphocytes # (A) 2.6 k/uL (1.0-4.8); Lymphocytes % (A) 25 %; MCH 29.7 pg (25.0-35.0); MCHC 34.1 g/dL (31.0-37.0); MCV 87.2 fL (80.0-100.0); Mean Platelet Volume 9.8; Monocytes # (A) 0.8 k/uL (0-1.0); Monocytes % (A) 7 %; Neutrophils # (A) 6.2 k/uL (1.3-7.7); Neutrophils % (A) 61 %; Platelet Count 202 k/uL (150-450); RBC 4.56 m/uL (4.30-5.90); RDW 13.3 % (11.5-15.5); WBC 10.2 k/uL (3.8-10.6)
[2019-11-24 20:40] LABS: Appearance,Urine Clear (Clear); Bilirubin,Urine Negative (Negative); Blood,Urine Negative (Negative); Color,Urine Colorless; Glucose,Urine (UA) Negative (Negative); Ketones,Urine Negative (Negative); Leukocyte Esterase,Urine Negative (Negative); Nitrite,Urine Negative (Negative); PH, Urine 5.5 (5.0-8.0); Protein,Urine Negative (Negative); Specific Gravity,Urine 1.001 (1.001-1.035); Urobilinogen,Urine <2.0 mg/dL (<2.0)
[2019-11-24 20:41] LABS: ALT 39 U/L (4-49); AST 38 U/L (17-59); African American GFR (CKD) >90 (>60 ml/min/1.73 sqM); Albumin 4.6 g/dL (3.5-5.0); Alkaline Phosphatase 85 U/L (38-126); Amylase 32 U/L (30-110); Anion Gap 12 mmol/L; Blood Urea Nitrogen 10 mg/dL (9-20); Calcium 9.1 mg/dL (8.4-10.2); Carbon Dioxide 23 mmol/L (22-30); Chloride 99 mmol/L (98-107); Glucose 86 mg/dL (74-99); Non-African American GFR(CKD) >90 (>60 ml/min/1.73 sqM); Potassium 3.8 mmol/L (3.5-5.1); Sodium 134 mmol/L (137-145); Total Bilirubin 0.5 mg/dL (0.2-1.3); Total Protein 7.3 g/dL (6.3-8.2)
--- NOTE | 2019-11-24 21:19 | CT ---
EXAMINATION TYPE: CT abdomen pelvis w con DATE OF EXAM: 11/24/2019 COMPARISON: 08/05/2019 HISTORY: Mid abdominal pain, history of hernia. CT DLP: 1731.4 mGycm Automated exposure control for dose reduction was used. CONTRAST: CT scan of the abdomen pelvis is performed with IV Contrast, patient injected with 100 mL of Isovue 3 00. FINDINGS- LUNG BASES-bilateral subsegmental areas of consolidation most typical of atelectasis.. LIVER/GB- No liver is slightly reduced in attenuation correlate for hepatic steatosis. Liver also a ppears to be enlarged measuring 20 cm. Correlate for hepatomegaly. Previous cholecystectomy changes n oted.. PANCREAS- No gross abnormality is seen. SPLEEN-splenic granuloma noted.. ADRENALS- No gross abnormality is seen. KIDNEYS/BLADDER- no hydronephrosis nephrolithiasis or renal mass. BOWEL- no bowel gas pattern nonspecific. No obstruction.. Mild wall thickening along the course of t he transverse colon could be related to incomplete distention. There is concern for mucosal lesion co rrelate with direct visualization. Appendix of normal caliber. LYMPH NODES- No greater than 1cm abdominal or pelvic lymph nodes areappreciated. OSSEOUS STRUCTURES-degenerative disc disease noted.. OTHER- there is a tiny fat-containing periumbilical hernia. Atherosclerotic change of the aorta and its branch vessels. IMPRESSION- 1. Stable small fat-containing periumbilical hernia. Mild inflammatory change within the hernia sac n ot excluded. 2. Mild localized wall thickening involving the transverse colon may be related to incomplete distent ion. However, If there is clinical concern for a mucosal lesion correlate with direct visualization. Correlate for GI related symptoms or hematochezia. 3. Correlate for hepatic steatosis and hepatomegaly.
[2019-11-24] MEDS ORDERED: HYDROmorphone 0.5 MG/0.5 ML SYRINGE IVP STA (21:42)
[2019-11-24] MEDS ORDERED: ACET/COD 300 MG/30 MG STARTER PACK 6 TAB BTL PO STA (21:43)
[2019-11-24 21:52] VITALS: BP 163/111; PULSE 79; TEMP 98.9
== END 2019-11-24 22:01 | disposition home or self-care (01) ==
LOC: EC 19:28
DX: K42.9 Umbilical hernia without obstruction or gangrene (principal); R10.9 Unspecified abdominal pain; K63.89 Other specified diseases of intestine; K21.9 Gastro-esophageal reflux disease without esophagitis; E78.5 Hyperlipidemia, unspecified; I10 Essential (primary) hypertension; F41.9 Anxiety disorder, unspecified; F31.9 Bipolar disorder, unspecified; Z79.82 Long term (current) use of aspirin; Z79.899 Other long term (current) drug therapy; Z90.49 Acquired absence of other specified parts of digestive tract; Z98.890 Other specified postprocedural states; Z87.19 Personal history of other diseases of the digestive system
CPT/HCPCS: 36415; 80053; 82150; 83605; 83690; 85025; 81003; 74177; 96375; 96361 ×2; 99284; 96374; J2270; J1170; Q9967

== ENCOUNTER → 2020-04-01 | Outpatient (CLI) | payer MEDICAID | END | disposition home or self-care (01) | LOC: LABWHC1 11:43 | PROVIDERS: ATTEND Pediatrics Pediatric Infectious Diseases | DX: Z03.818 Encounter for observation for suspected exposure to other biological agents ruled out (principal) | CPT/HCPCS: U0003; C9803 ==

== ENCOUNTER 2020-04-17 14:21 | Emergency (ER) | payer MEDICAID ==
[2020-04-17 14:30] VITALS: PULSE 117; TEMP 98.2
[2020-04-17] MEDS ORDERED: SODIUM CHLORIDE 0.9% 1,000 ML IV STA (15:09)
[2020-04-17] MEDS ORDERED: LORazepam 1 MG TAB PO STA (15:10)
--- NOTE | 2020-04-17 15:27 | ED ---
General Adult HPI - General Source: EMS, RN notes reviewed, old records reviewed Mode of arrival: EMS <Jorge Austin - Last Filed: 04/17/20 17:13> <Sue Sarah - Last Filed: 04/18/20 18:40> - General Chief complaint: Overdose Stated complaint: Altered mental status Time Seen by Provider: 04/17/20 14:44 - History of Present Illness Initial comments: 49-year-old male patient presents to ED for evaluation. Patient reports that he had an argument with his girlfriend and she called the police on him to get checked out. Patient states that his girlfriend states that he has not been acting normally here recently. Patient does report that about 4 days ago he had a relapse some alcohol and drug abuse. Reports that he drank alcohol and used both methamphetamine and cocaine. Patient reports that she has felt fine since then. He states he is recently off for 10 days due to possible covid exposure. He states he had fever a couple days ago but has not had any since. Does report that he has a little bit of coughing. Patient did reportedly test negative for coronavirus. Denies any headache change in vision chest pain shortness of breath abdominal pain or any other complaints at this time. Patient does report that he does feel anxious he denies suicidal or homicidal ideations. Patient was not petitioned. Nurse did speak to girlfriend who confirmed that patient was not petitioned, patient is declining that I call girlfriend at this time. Systemic: Pt denies fatigue, fever/chills, rash. Pt denies weakness, night sweats, weight loss. Neuro: Pt denies headache, visual disturbances, syncope or pre-syncope. HEENT: Pt denies ocular discharge or irritation, otalgia, rhinorrhea, pharyngitis or notable lymphadenopathy. Cardiopulmonary: Pt denies chest pain, SOB, heart palpitations, dyspnea on exertion. Abdominal/GI: Pt denies abdominal pain, n/v/d. : Pt denies dysuria, burning w/ urination, frequency/urgency. Denies new onset urinary or bowel incontinence. MSK: Pt denies myalgia, loss of strength or function in extremities. Neuro: Pt denies new onset weakness, paresthesias. (Jorge Austin) - Related Data Home Medications Medication Instructions Recorded Confirmed Omeprazole 20 mg PO BID 04/29/14 06/30/18 Hydrocodone/Acetaminophen 1 tab PO TID PRN 03/10/16 06/30/18 [Hydrocodone-Acetamin 7.5-325] Simvastatin 40 mg PO HS 03/10/16 06/30/18 cloNIDine HCL [Catapres] 0.2 mg PO TID 03/10/16 06/30/18 Aspirin 81 mg PO DAILY 03/23/16 06/30/18 Ibuprofen [Motrin Ib] 400 - 600 mg PO BID PRN 01/24/18 06/30/18 ALPRAZolam [Xanax] 0.5 mg PO BID PRN 03/23/18 06/30/18 QUEtiapine XR [SEROquel XR] 150 mg PO HS 03/23/18 06/30/18 Diltiazem HCl [Diltiazem HCl 24Hr 300 mg PO DAILY 06/30/18 06/30/18 ER ([place])] Metoprolol Succinate [Toprol XL] 200 mg PO 06/30/18 06/30/18 Previous Rx's Medication Instructions Recorded Amoxicillin/Potassium Clav 1 tab PO BID 3 Days #6 tab 07/02/18 [Augmentin 875-125 Tablet] Ipratropium/Albuterol Sulfate 2 puff INHALATION QID #1 inhaler 07/02/18 [Combivent Respimat Inhaler] Nicotine 21Mg/24Hr Patch [Habitrol] 1 patch TRANSDERM DAILY #30 patch 07/02/18 predniSONE 10 mg PO DAILY #30 tab 07/02/18 traMADol HCL [Ultram] 50 mg PO Q6HR PRN 3 Days #11 tab 08/05/19 Azithromycin [Zithromax Z-pack] 0 mg PO DIRECTED #6 tab 04/17/20 Allergies Allergy/AdvReac Type Severity Reaction Status Date / Time No Known Allergies Allergy Verified 11/24/19 19:35 Review of Systems ROS Other: All systems not noted in ROS Statement are negative. <Jorge Austin - Last Filed: 04/17/20 17:13> ROS Other: All systems not noted in ROS Statement are negative. <Sue Sarah - Last Filed: 04/18/20 18:40> ROS Statement: Those systems with pertinent positive or pertinent negative responses have been documented in the HPI. Past Medical History Past Medical History: GERD/Reflux, Hyperlipidemia, Hypertension Additional Past Medical History / Comment(s): Hx of pancreatitis History of Any Multi-Drug Resistant Organisms: None Reported Past Surgical History: Cholecystectomy, Hernia Repair Past Anesthesia/Blood Transfusion Reactions: No Reported Reaction Past Psychological History: Anxiety, Bipolar Smoking Status: Current every day smoker Past Alcohol Use History: Occasional Past Drug Use History: None Reported - Past Family History Mother Family Medical History: No Reported History Father Family Medical History: Pneumonia <Jorge Austin - Last Filed: 04/17/20 17:13> General Exam <Jorge Austin - Last Filed: 04/17/20 17:13> - General Exam Comments Initial Comments: Constitutional: NAD, AOX3, Pt has pleasant affect. HEENT: NC/AT, trachea midline, neck supple, no lymphadenopathy. Posterior pharynx non erythematous, without exudates. External ears appear normal, without discharge. Mucous membranes moist. Eyes PERRLA, EOM intact. There is no scleral icterus. No pallor noted. Cardiopulmonary: RRR, no murmurs, rubs or gallops, no JVD noted. Lungs CTAB in anterior and posterior mendez. No peripheral edema. Abdominal exam: Abdomen soft and non-distended. Abdomen non-tender to palpation in all 4 quadrants. Bowel sounds active in LLQ. No hepatosplenomegaly. No ecchymosis Neuro: CN II-XII intact. No nuchal rigidity. No raccon eyes, no wade sign, no hemotympanum. No cervical spinal tenderness. MSK: No posterior calf tenderness bilaterally. Posterior tibialis and radial pulse +2 bilaterally. Sensation intact in upper and lower extremities. Full active ROM in upper and lower extremities, 5/5 stregnth. (Jorge Austin) Course Vital Signs 04/17/20 04/17/20 04/17/20 14:23 15:37 17:23 Temperature 98.2 F Pulse Rate 117 H 117 H 117 H Respiratory 18 18 19 Rate Blood Pressure 146/102 144/94 O2 Sat by Pulse 92 L 95 98 Oximetry Medical Decision Making - Lab Data Result diagrams: 04/17/20 15:21 04/17/20 15:21 - EKG Data -: EKG Interpreted by Me (and Dr. Sarah ) <Jorge Austin - Last Filed: 04/17/20 17:13> - Lab Data Result diagrams: 04/17/20 15:21 04/17/20 15:21 <Sue Sarah - Last Filed: 04/18/20 18:40> - Medical Decision Making 49 year old male patient presents to ED at request of girlfriend after relapse of substance abuse. Patient also reports that he has been coughing and had a fever a couple of days ago. Denies chest pain shortness of breath. Physical exam did not display acute pathology. Laboratory investigations are significant for mild leukocytosis. Mild transaminitis. Drug screen is positive for opiates, TCA, amphetamines, methemphatamine, benzodiasepines, cocaine. CXR displayed nonspecific mild infiltrate left lung base. Atelectasis and atypical pneumonia could be considered. Brain CT displayed no acute intracranial process. Patient is requesting discharge. Will be initiated on azithromycin and receive rocephin azithro in ED. Patient will be retested for COVID. Will be discharged with outpatient follow up and return precautions. Case discussed with Dr. Sarah. (Jorge Austin) I was available for consultation in the emergency department. The history and physical exam were done by the midlevel provider. I was consulted for this patients care. I reviewed the case with the midlevel provider and based on their presentation of the patient, I agree with the assessment, medical decision making and plan of care as documented. Chart was dictated using Lela dictation software. Attempts were made to correct any dictation errors however some typographical errors may persist. Patient was seen during a national state of emergency due to the Covid-19 pandemic. (Sue Sarah) - Lab Data Lab Results 04/17/20 04/17/20 04/17/20 Range/Units 15:21 15:21 15:21 WBC 12.6 H (3.8-10.6) k/uL RBC 4.96 (4.30-5.90) m/uL Hgb 14.8 (13.0-17.5) gm/dL Hct 43.3 (39.0-53.0) % MCV 87.1 (80.0-100.0) fL MCH 29.7 (25.0-35.0) pg MCHC 34.1 (31.0-37.0) g/dL RDW 13.0 (11.5-15.5) % Plt Count 217 (150-450) k/uL Neutrophils % 77 % Lymphocytes % 13 % Monocytes % 6 % Eosinophils % 2 % Basophils % 1 % Neutrophils # 9.7 H (1.3-7.7) k/uL Lymphocytes # 1.6 (1.0-4.8) k/uL Monocytes # 0.8 (0-1.0) k/uL Eosinophils # 0.2 (0-0.7) k/uL Basophils # 0.1 (0-0.2) k/uL Sodium 136 L (137-145) mmol/L Potassium 4.3 (3.5-5.1) mmol/L Chloride 99 (98-107) mmol/L Carbon Dioxide 26 (22-30) mmol/L Anion Gap 11 mmol/L BUN 13 (9-20) mg/dL Creatinine 1.14 (0.66-1.25) mg/dL Est GFR (CKD-EPI)AfAm 87 (>60 ml/min/1.73 sqM) Est GFR (CKD-EPI)NonAf 75 (>60 ml/min/1.73 sqM) Glucose 125 H (74-99) mg/dL Calcium 10.3 H (8.4-10.2) mg/dL Total Bilirubin 0.7 (0.2-1.3) mg/dL AST 66 H (17-59) U/L ALT 85 H (4-49) U/L Alkaline Phosphatase 116 (38-126) U/L Troponin I (0.000-0.034) ng/mL Total Protein 7.9 (6.3-8.2) g/dL Albumin 5.0 (3.5-5.0) g/dL Lipase 41 (23-300) U/L Salicylates <1.0 mg/dL Urine Opiates Screen Detected H (NotDetected) Ur Oxycodone Screen Not Detected (NotDetected) Urine Methadone Screen Not Detected (NotDetected) Ur Propoxyphene Screen Not Detected (NotDetected) Acetaminophen <10.0 ug/mL Ur Barbiturates Screen Not Detected (NotDetected) U Tricyclic Antidepress Detected H (NotDetected) Ur Phencyclidine Scrn Not Detected (NotDetected) Ur Amphetamines Screen Detected H (NotDetected) U Methamphetamines Scrn Detected H (NotDetected) U Benzodiazepines Scrn Detected H (NotDetected) Urine Cocaine Screen Not Detected (NotDetected) U Marijuana (THC) Screen Not Detected (NotDetected) Serum Alcohol <10 mg/dL 04/17/20 Range/Units 15:21 WBC (3.8-10.6) k/uL RBC (4.30-5.90) m/uL Hgb (13.0-17.5) gm/dL Hct (39.0-53.0) % MCV (80.0-100.0) fL MCH (25.0-35.0) pg MCHC (31.0-37.0) g/dL RDW (11.5-15.5) % Plt Count (150-450) k/uL Neutrophils % % Lymphocytes % % Monocytes % % Eosinophils % % Basophils % % Neutrophils # (1.3-7.7) k/uL Lymphocytes # (1.0-4.8) k/uL Monocytes # (0-1.0) k/uL Eosinophils # (0-0.7) k/uL Basophils # (0-0.2) k/uL Sodium (137-145) mmol/L Potassium (3.5-5.1) mmol/L Chloride (98-107) mmol/L Carbon Dioxide (22-30) mmol/L Anion Gap mmol/L BUN (9-20) mg/dL Creatinine (0.66-1.25) mg/dL Est GFR (CKD-EPI)AfAm (>60 ml/min/1.73 sqM) Est GFR (CKD-EPI)NonAf (>60 ml/min/1.73 sqM) Glucose (74-99) mg/dL Calcium (8.4-10.2) mg/dL Total Bilirubin (0.2-1.3) mg/dL AST (17-59) U/L ALT (4-49) U/L Alkaline Phosphatase (38-126) U/L Troponin I <0.012 (0.000-0.034) ng/mL Total Protein (6.3-8.2) g/dL Albumin (3.5-5.0) g/dL Lipase (23-300) U/L Salicylates mg/dL Urine Opiates Screen (NotDetected) Ur Oxycodone Screen (NotDetected) Urine Methadone Screen (NotDetected) Ur Propoxyphene Screen (NotDetected) Acetaminophen ug/mL Ur Barbiturates Screen (NotDetected) U Tricyclic Antidepress (NotDetected) Ur Phencyclidine Scrn (NotDetected) Ur Amphetamines Screen (NotDetected) U Methamphetamines Scrn (NotDetected) U Benzodiazepines Scrn (NotDetected) Urine Cocaine Screen (NotDetected) U Marijuana (THC) Screen (NotDetected) Serum Alcohol mg/dL - EKG Data EKG Comments: Ventricular rate 114, OK interval 172, QRS 90, QT/QTc 324/446. Sinus tachycard ia. Possible left atrial enlargement, left axis devision, possible left ventricular hypertrophy, nonspecific ST abnormality, No concern for acute ischemia at this time. (Jorge Austin) Disposition Is patient prescribed a controlled substance at d/c from ED?: No <Jorge Austin - Last Filed: 04/17/20 17:13> <Sue Sarah - Last Filed: 04/18/20 18:40> Clinical Impression: Pneumonia, Substance abuse, Tachycardia Disposition: HOME SELF-CARE Condition: Stable Instructions (If sedation given, give patient instructions): Polysubstance Abuse (ED), Pneumonia (ED) Additional Instructions: Take antibiotics as directed. Follow up with PCP tomorrow. I do recommend self quarantine until repeat covid test is back. Avoid drugs or alcohol. Return to ED with worsening symptoms. Prescriptions: Azithromycin [Zithromax Z-pack] 0 mg PO DIRECTED #6 tab Referrals: Jabari Sorto MD [Primary Care Provider] - 1-2 days
[2020-04-17 15:38] VITALS: BP 144/94
[2020-04-17 15:41] LABS: Basophils # (A) 0.1 k/uL (0-0.2); Basophils % (A) 1 %; Eosinophils # (A) 0.2 k/uL (0-0.7); Eosinophils % (A) 2 %; HCT 43.3 % (39.0-53.0); HGB 14.8 gm/dL (13.0-17.5); Lymphocytes # (A) 1.6 k/uL (1.0-4.8); Lymphocytes % (A) 13 %; MCH 29.7 pg (25.0-35.0); MCHC 34.1 g/dL (31.0-37.0); MCV 87.1 fL (80.0-100.0); Mean Platelet Volume 9.6; Monocytes # (A) 0.8 k/uL (0-1.0); Monocytes % (A) 6 %; Neutrophils # (A) 9.7 k/uL (1.3-7.7); Neutrophils % (A) 77 %; Platelet Count 217 k/uL (150-450); RBC 4.96 m/uL (4.30-5.90); WBC 12.6 k/uL (3.8-10.6)
[2020-04-17 16:02] LABS: Amphetamine Screen,Urine Detected (NotDetected); Barbiturate Screen,Urine Not Detected (NotDetected); Benzodiazepines Screen,Urine Detected (NotDetected); Cocaine Screen,Urine Not Detected (NotDetected); Methadone Screen, Urine Not Detected (NotDetected); Opiate Screen,Urine Detected (NotDetected); Oxycodone Screen, Urine Not Detected (NotDetected); Phencyclidine Screen,Urine Not Detected (NotDetected); Tricyclic Antidepressant,Urine Detected (NotDetected); Urn Cannabinoid Scrn Not Detected (NotDetected)
--- NOTE | 2020-04-17 16:11 | CT ---
EXAMINATION TYPE: CT brain wo con DATE OF EXAM: 04/17/2020 COMPARISON: 06/11/2012 INDICATION: Patient appears confused and fatigued. DLP: 1137.4 mGycm, Automated exposure control for dose reduction was used. CONTRAST: None CT of the brain is performed utilizing 3 mm thick sections through the posterior fossa and 3 mm thick sections through the remaining calvarium. Study is performed within 24 hours of arrival to the hosp [facility]. No abnormal hyperdensity is present to suggest an acute intracranial hemorrhage. No mass lesion is evident. No acute infarcts are evident. Ventricles and sulci are appropriate for the patient age. Paranasal sinuses and mastoid air cells within the [id number] are clear. IMPRESSIONS: 1. No acute intracranial process.
--- NOTE | 2020-04-17 16:14 | XR ---
EXAMINATION TYPE: XR chest 2V DATE OF EXAM: 04/17/2020 COMPARISON: 06/30/2018 INDICATION: Cough, fever TECHNIQUE: Frontal and lateral views of the chest are obtained. FINDINGS: The heart size is normal. The pulmonary vasculature is normal. Minimal infiltrate is at the left lung base. Lung mendez are otherwise clear. Finding is nonspecific. Atypical pneumonia would be within the differential. Atelectasis could also be considered.. IMPRESSION: 1. Nonspecific mild infiltrate left lung base. Atelectasis and atypical pneumonia could be considered
[2020-04-17 16:22] LABS: ALT 85 U/L (4-49); AST 66 U/L (17-59); Acetaminophen <10.0 ug/mL; African American GFR (CKD) 87 (>60 ml/min/1.73 sqM); Alcohol <10 mg/dL; Alkaline Phosphatase 116 U/L (38-126); Anion Gap 11 mmol/L; Blood Urea Nitrogen 13 mg/dL (9-20); Calcium 10.3 mg/dL (8.4-10.2); Carbon Dioxide 26 mmol/L (22-30); Chloride 99 mmol/L (98-107); Glucose 125 mg/dL (74-99); Non-African American GFR(CKD) 75 (>60 ml/min/1.73 sqM); Potassium 4.3 mmol/L (3.5-5.1); Salicylate <1.0 mg/dL; Sodium 136 mmol/L (137-145); Total Bilirubin 0.7 mg/dL (0.2-1.3); Total Protein 7.9 g/dL (6.3-8.2)
[2020-04-17] MEDS ORDERED: AZITHROMYCIN 500 MG TAB PO STA (16:30)
[2020-04-17 17:23] VITALS: RESP 19
== END 2020-04-17 18:07 | disposition home or self-care (01) ==
LOC: EC 14:21
DX: J18.9 Pneumonia, unspecified organism (principal); F19.10 Other psychoactive substance abuse, uncomplicated; R00.0 Tachycardia, unspecified; F11.10 Opioid abuse, uncomplicated; F14.10 Cocaine abuse, uncomplicated; F15.10 Other stimulant abuse, uncomplicated; F13.10 Sedative, hypnotic or anxiolytic abuse, uncomplicated; D72.829 Elevated white blood cell count, unspecified; R74.0 Nonspecific elevation of levels of transaminase and lactic acid dehydrogenase [LDH]; F17.200 Nicotine dependence, unspecified, uncomplicated; K21.9 Gastro-esophageal reflux disease without esophagitis; E78.5 Hyperlipidemia, unspecified; I10 Essential (primary) hypertension; F41.9 Anxiety disorder, unspecified; F31.9 Bipolar disorder, unspecified; Z87.19 Personal history of other diseases of the digestive system; Z79.82 Long term (current) use of aspirin; Z79.899 Other long term (current) drug therapy; Z90.49 Acquired absence of other specified parts of digestive tract; Z98.890 Other specified postprocedural states; Z20.828 Contact with and (suspected) exposure to other viral communicable diseases
CPT/HCPCS: 99285; 96365; 96361; 36415; 93005; 80053; 83690; 84484; 85025; 80306; 83520; 80329; 80320; 71046; 70450; U0003; J0696

== ENCOUNTER → 2020-07-28 | Day surgery (SDC) | payer MEDICAID ==
[2020-07-22 12:39] VITALS: BMI 30.8
--- NOTE | 2020-07-27 19:11 | HP ---
HISTORY AND PHYSICAL CHIEF COMPLAINT: Sore/lesion on tongue. HISTORY OF PRESENT ILLNESS: Patient is a pleasant 49-year-old male who was recently seen in my office complaining of having a sore on the right and left side of his tongue. The patient was seen in early July and at that time, he felt that lesion had been there for probably several weeks. The patient smokes approximately a pack of cigarettes per day and was advised to quit for obvious health reasons. In addition, that he had a 2nd lesion on the left ventral portion of the tongue that he was concerned about, but stated that this area was not sore. At the time he was seen in the office, clinical examination revealed a well-circumscribed 5 to 7 mm ulcerated macular lesion, moderately tender, located on the mid ventral part of the tongue on the right. In addition to this, there appeared to be a maculopapular whitish lesion located on the left ventral portion of the tongue. The patient was given treatment and was seen back approximately 3 weeks later. At that time, he felt that the lesion had gotten smaller, but in fact on clinical examination of the oropharynx, examination of both lesions revealed that they had remained the same size. Because of the patient's history of heavy smoking and concern about malignancy, the patient is recommended undergo biopsies of both the right and left lesions of the ventral portion of the tongue under general anesthesia. PAST MEDICAL HISTORY: Reveals he has no known allergies to medications. MEDICATIONS: His current medications include clonidine, Seroquel, Prilosec, diltiazem, metoprolol, Xanax, and simvastatin. It is to be noted the patient states that he is a recovering alcoholic. PREVIOUS SURGERIES: Include cholecystectomy and repair of an incisional abdominal hernia and repair of a nasal fracture. REVIEW OF SYSTEMS: Reveals cardiovascular system is positive for hypertension. RESPIRATORY: Negative. GASTROINTESTINAL: Positive for GERD, gastroesophageal reflux disorder, and the metabolic endocrine system is positive for hypercholesterolemia. The remainder of the review of systems is unremarkable. PHYSICAL EXAMINATION: This patient is a pleasant 49-year-old male who was alert and cooperative and well oriented to time and place. HEENT examination: Patient is normocephalic. Tympanic membranes are normal. Middle ear spaces are free of any fluid or infection. Pupils equal, round, react to light and accommodation. Extraocular movements within normal limits. Intranasal examination reveals moderate to severe septal deviation with compensatory hypertrophy of the inferior turbinates and a moderate amount of mucus on the mucous membranes and draining down the posterior pharynx. Mucus is clear. Examination of the oropharynx reveals patient has a 5-7 mm well-circumscribed, moderately tender, ulcerated, lesion on the right ventral portion of the tongue. Examination of left side of tongue reveals patient has approximately a 1-2 cm well-circumscribed macular papular white lesion located on the left ventral portion of the tongue. No other suspicious lesions are noted in the oropharynx or hypopharynx. Palpation of the neck is negative for any neck mass or lymphadenopathy. Cranial nerves 2-12 and the remainder of the head neck exam is unremarkable. Chest/cardiovascular: Both lung mendez are clear to percussion and auscultation. The patient is in regular sinus rhythm S1, S2 are present without any murmurs, S3s or S4s. Peripheral pulses are bilaterally symmetrical. ABDOMEN: There is no evidence any masses, megaly or tenderness. Abdomen soft. Skin is unremarkable. Musculoskeletal, neurological within all within normal limits. Rectal exam: Rectal exam is deferred at this time because the patient has this done on a regular basis at his family physician's office. IMPRESSION: Lesions of the ventral portion of the tongue, right and left. Suspect malignancy. PLAN: The patient is scheduled for excision of lesion of the right ventral portion of tongue and incisional biopsy of lesion of the left ventral tongue under general anesthesia. Attention RNs in the preop area: I have not ordered any presurgical prophylactic antibiotics for this patient. If the pharmacy department sends any pre-surgical prophylactic antibiotics to the pre-surgical area for this patient, that order should be cancelled, the medication should be returned to the pharmacy department, and please make sure that the patient's account is credited appropriately. In addition, I have ordered for this patient to receive 1000 mg of Ofirmev IV, to be given once an intravenous line has been established. I have also ordered for this patient to have Venodyne compression stockings applied (not to JOVAN hose). I have discussed the risks, benefits and alternative therapies for the above-mentioned procedure and for both sedation/analgesia as well as necessary blood product administration, if indicated, as they pertain to this patient. The patient has indicated his or her understanding and acceptance of the risks and procedures discussed. MMODL / IJN: [id number] /
[~2020-07-28] MED LIST changes: +ACETAMINOPHEN IV (For NPO) 1,000 MG in EMPTY BAG 1 BAG IVPB ONE; +DEXAMETHASONE SOD PHOSPHATE 10 MG/ML 1 ML VIAL ONE; +DEXAMETHASONE SOD PHOSPHATE 4 MG/ML 1 ML VIAL IV ONE; +HYDROmorphone 0.5 MG/0.5 ML SYRINGE IVP PRN; +LACTATED RINGERS 1,000 ML IV ONE; +LIDOCAINE 1% (10MG/ML) FOR IV START INTRADERMA ONE; -LIDOCAINE 1% 20 ML VIAL (10MG/ML) FOR IV START INTRADERMA PRN; +LIDOCAINE 1% INJ 10MG/ML (20 ML MDV) ONE; +MIDAZOLAM 2 MG/2 ML VIAL IV PRN; +MIDAZOLAM 2 MG/2 ML VIAL ONE; +ONDANSETRON 4 MG/2 ML VIAL IVP ONE; +PROPOFOL 10 MG/ML 20 ML VIAL IV ONE; +SCOPOLAMINE 1.5MG/72HR PATCH TRANSDERM ONE; +SUCCINYLCHOLINE CHLORIDE VIAL 200 MG/10 ML VIAL IV ONE; +fentaNYL (PF) 50 MCG/ML 2 ML AMP ONE; +metroNIDAZOLE-NS PMX 500 MG in SALINE 1 100ML.BAG IVPB PRN
[2020-07-28 08:46] VITALS: RESP 16
[2020-07-28 11:31] VITALS: TEMP 97.3
[2020-07-28 12:30] VITALS: BP 113/69; PULSE 65
--- NOTE | 2020-07-28 18:21 | OP ---
OPERATIVE REPORT DATE OF SURGERY: 07/28/2020 PREOPERATIVE DIAGNOSIS: Lesions of the right and left ventral anterior third of the tongue. 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 ANESTHESIA: General. OPERATIVE PROCEDURE: Excisional biopsy of lesion of the left ventral anterior one-third tongue, approximately 5 x 5 mm. OPERATING SURGEON: Dr. Fontana. COMPLICATIONS: None. ESTIMATED BLOOD LOSS: Less than 3 mL. OPERATIVE PROCEDURE DESCRIPTION: The patient was placed on the operating table in supine position. After uneventful induction and endotracheal intubation, satisfactory general anesthesia was obtained. Next, the patient was draped in the usual and customary fashion, following which a dental bite block was inserted in the right buccal sulcus. Following this, the tip of the tongue was grasped with a pair of towel clips and pulled anteriorly and laterally to the left, thus exposing the right side of the tongue. A thorough search of the right side of the tongue revealed that a previously seen, well-circumscribed, ulcerated, tender 5 mm lesion located on the mid-ventral portion of the right side of the tongue anteriorly was no longer present. Therefore, no biopsies were carried out on the right side of the tongue. The tongue was then pulled further anteriorly and to the right, thus exposing the left side of the tongue. There were several patchy areas on the left side of the tongue which appeared to be leukoplakia. These were located on the ventral portion of the left side of the tongue anteriorly. One of the lesions that was located most anteriorly was targeted and was excised in an elliptical fashion using a #15 scalpel blade to cut through the mucous membrane down to the level of the underlying muscle tissue. This ellipse of tissue was grasped with a pair Brown's forceps and was subsequently excised completely by sharp dissection. The specimen was then put in formalin for permanent sectioning. Hemostasis was obtained using suction cautery. The wound defect was closed in a complex fashion using 4-0 Vicryl suture to reapproximate the muscle to underlying muscle tissue in an interrupted buried fashion. Subsequently 4-0 Vicryl in interrupted buried fashion was used to approximate the mucosal edges of the ventral surface of the tongue and thereby completely close the wound defect. Hemostasis was obtained using electrocautery. Estimated blood loss was less than 3 mL. At this point the procedure was terminated. No local anesthesia was used during this procedure because of concern that the patient might possibly bite his own tongue while waking up. The patient tolerated the procedure well. He was given 10 mg of Decadron intraoperatively to reduce any swelling of the tongue. The patient was returned to the recovery room in satisfactory condition. Final pathology is pending. MMODL / IJN: [id number] /
== END | disposition home or self-care (01) ==
LOC: OR 08:24
PROVIDERS: ATTEND Otolaryngology
DX: F17.210 Nicotine dependence, cigarettes, uncomplicated (principal); E78.5 Hyperlipidemia, unspecified; I10 Essential (primary) hypertension; F10.21 Alcohol dependence, in remission; K21.9 Gastro-esophageal reflux disease without esophagitis; E78.00 Pure hypercholesterolemia, unspecified; Z90.49 Acquired absence of other specified parts of digestive tract; Z98.890 Other specified postprocedural states; Z79.899 Other long term (current) drug therapy
CPT/HCPCS: 88305; 41112; J2250; J0330; J1100 ×2; J2405; J2001; J3010; J2704

== ENCOUNTER 2021-03-11 15:57 | Emergency (ER) | payer MEDICAID, OTHER ==
[2021-03-11] MEDS ORDERED: methylPREDNISolone SOD SUCCI 125 MG/2 ML VIAL IM STA (16:17)
[2021-03-11] MEDS ORDERED: MORPHINE SULFATE 4 MG/ML SYRINGE IV STA (16:17)
[2021-03-11] MEDS ORDERED: MORPHINE SULFATE 4 MG/ML SYRINGE IM STA (16:18)
--- NOTE | 2021-03-11 17:32 | XR ---
Result: History: Back pain status post injury. Comparison: None available. Technique: 3 views of the lumbar spine. Findings: The bone mineralization is normal. Images of the lumbar spine demonstrate 5 lumbar-type vertebrae. There is no acute fracture or sublux ation. The vertebral body heights are preserved throughout the imaged lumbar spine. The vertebral e lements are in anatomic alignment. There is mild L5-S1 spondylosis. Cholecystectomy clips seen. Impression: No acute osseous abnormality of the lumbar spine.
--- NOTE | 2021-03-11 17:33 | XR ---
Result: History: Pain status post injury. Comparison: None available. Technique: Frontal and lateral radiographs of the left hip. Findings: The bone mineralization is appropriate for age. There is no acute fracture or dislocation. The visualized osseous structures are in anatomic alignme nt. There is small left acetabular osteophyte. Otherwise the joint spaces are preserved. Impression: No acute osseous abnormality.
--- NOTE | 2021-03-11 17:34 | XR ---
Result: History: Back pain status post injury. Comparison: None available. Technique: 3 views of the thoracic spine. Findings: The bone mineralization is normal. There is no acute fracture or subluxation. The vertebral body heights are preserved throughout the i lyle thoracic spine. The vertebral elements are in anatomic alignment. The disc heights are mainta ined throughout the imaged spine. Impression: No acute fracture or subluxation of the thoracic spine.
--- NOTE | 2021-03-11 17:49 | ED ---
Back Pain HPI - General Chief Complaint: Back Pain/Injury Stated Complaint: [facility] Back Injury Time Seen by Provider: 03/11/21 16:06 Source: patient, RN notes reviewed Limitations: no limitations - History of Present Illness Initial Comments: Patient is a 50-year-old male that presents to emergency department complaining of mid to lower back pain. 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 He notes that he is able to urinate and have bowel movements. He denied any saddle anesthesia. He was otherwise a well-appearing male. He notes that while resting his pain is approximately a 5 out of 10 but while trying to bend over it increases to 9-10 out of 10. He noted that he tried toughing it out at work but eventually had to come in. He denied any chest pain shortness of breath headache nausea vomiting diarrhea constipation fever fatigue chills weakness numbness tingling his bilateral lower extremity saddle anesthesia. - Related Data Home Medications Medication Instructions Recorded Confirmed Omeprazole 20 mg PO BID 04/29/14 07/22/20 Simvastatin 40 mg PO HS 03/10/16 07/28/20 cloNIDine HCL [Catapres] 0.2 mg PO TID 03/10/16 07/22/20 Aspirin 81 mg PO DAILY 03/23/16 07/22/20 Ibuprofen [Motrin Ib] 400 - 600 mg PO BID PRN 01/24/18 07/22/20 ALPRAZolam [Xanax] 0.5 mg PO BID PRN 03/23/18 07/28/20 QUEtiapine XR [SEROquel XR] 150 mg PO HS 03/23/18 07/28/20 Diltiazem HCl [Diltiazem HCl 24Hr 300 mg PO DAILY 06/30/18 07/22/20 ER ([place])] Metoprolol Succinate [Toprol XL] 200 mg PO DAILY 06/30/18 06/30/18 Previous Rx's Medication Instructions Recorded Ipratropium/Albuterol Sulfate 2 puff INHALATION QID #1 inhaler 07/02/18 [Combivent Respimat Inhaler] Cephalexin [Keflex] 500 mg PO Q12HR 1 Days #14 cap 07/27/20 HYDROcodone/APAP 5-325MG [[place] 1 tab PO Q4HR PRN 3 Days #18 tab 07/27/20 5-325] Cyclobenzaprine [Flexeril] 10 mg PO TID PRN #15 tab 03/11/21 Allergies Allergy/AdvReac Type Severity Reaction Status Date / Time No Known Allergies Allergy Verified 03/11/21 16:04 Review of Systems ROS Statement: Those systems with pertinent positive or pertinent negative responses have been documented in the HPI. ROS Other: All systems not noted in ROS Statement are negative. Past Medical History Past Medical History: GERD/Reflux, Hyperlipidemia, Hypertension Additional Past Medical History / Comment(s): Hx of pancreatitis. TONGUE LESION History of Any Multi-Drug Resistant Organisms: None Reported Past Surgical History: Cholecystectomy, Hernia Repair Additional Past Surgical History / Comment(s): SX ON NOSE TEEN FOR FX NOSE. COLONOSCOPY/EGD Past Anesthesia/Blood Transfusion Reactions: No Reported Reaction Past Psychological History: Anxiety, Bipolar Smoking Status: Current every day smoker - Past Family History Mother Family Medical History: No Reported History Father Family Medical History: Pneumonia General Exam Limitations: no limitations General appearance: alert, in no apparent distress Head exam: Present: atraumatic, normocephalic, normal inspection Eye exam: Present: normal appearance, PERRL, EOMI. Absent: scleral icterus, conjunctival injection, periorbital swelling Neck exam: Present: normal inspection Respiratory exam: Present: normal lung sounds bilaterally. Absent: respiratory distress, wheezes, rales, rhonchi, stridor Cardiovascular Exam: Present: regular rate, normal rhythm, normal heart sounds. Absent: systolic murmur, diastolic murmur, rubs, gallop, clicks GI/Abdominal exam: Present: soft, normal bowel sounds. Absent: distended, tenderness, guarding, rebound, rigid Extremities exam: Present: normal inspection, full ROM, normal capillary refill. Absent: tenderness, pedal edema, joint swelling, calf tenderness Back exam: Present: normal inspection, full ROM, paraspinal tenderness (Mid back to low back.). Absent: CVA tenderness (R), CVA tenderness (L), vertebral tenderness Neurological exam: Present: alert, oriented X3 Psychiatric exam: Present: normal affect, normal mood Skin exam: Present: warm, dry, intact, normal color. Absent: rash Course Vital Signs 03/11/21 16:01 Temperature 97.6 F Pulse Rate 55 L Respiratory 16 Rate Blood Pressure 130/89 O2 Sat by Pulse 97 Oximetry Medical Decision Making - Medical Decision Making 50-year-old male complaining of back pain after lifting heavy objects while at work. 125 mg of Solu-Medrol, 4 mg morphine, x-ray of the thoracic lumbar spine, x-ray of the hip ordered. X-ray imaging negative for any acute osseous abnormality. Given clinical signs or symptoms and negative imaging patient most likely has a back strain. Case discussed with Dr. Brian, patient discharge home with follow-up to primary care. - Radiology Data Radiology results: report reviewed, image reviewed Dressing spine x-ray: No acute osseous abnormality. Lumbar spine x-ray: No acute osseous abnormality. X-ray of the hips: No acute osseous abnormality. Disposition Clinical Impression: Mechanical back pain, Strain of lumbar region, Thoracic back pain Disposition: HOME SELF-CARE Condition: Stable Instructions (If sedation given, give patient instructions): Acute Low Back Pain (ED) Additional Instructions: Please return to the Emergency Department if symptoms worsen or any other concerns. Follow-up primary care 1-2 days. Take Flexeril as prescribed. Avoid any strenuous activity or exercise for the next several days. Is patient prescribed a controlled substance at d/c from ED?: No Referrals: Jabari Sorto MD [Primary Care Provider] - 1-2 days Time of Disposition: 17:49
[2021-03-11] MEDS ORDERED: ACET/COD 300 MG/30 MG STARTER PACK 6 TAB BTL PO STA (17:53)
[2021-03-11 18:07] VITALS: BP 139/94; PULSE 67; RESP 20; TEMP 98
== END 2021-03-11 18:06 | disposition home or self-care (01) ==
LOC: EC 15:57
DX: S39.012A Strain of muscle, fascia and tendon of lower back, initial encounter (principal); M54.6 Pain in thoracic spine; I10 Essential (primary) hypertension; E78.5 Hyperlipidemia, unspecified; K21.9 Gastro-esophageal reflux disease without esophagitis; F31.9 Bipolar disorder, unspecified; F41.9 Anxiety disorder, unspecified; F17.200 Nicotine dependence, unspecified, uncomplicated; Z79.1 Long term (current) use of non-steroidal anti-inflammatories (NSAID); Z79.82 Long term (current) use of aspirin; Z79.899 Other long term (current) drug therapy; X50.0XXA Overexertion from strenuous movement or load, initial encounter
CPT/HCPCS: 72070; 72100; 73502; 96372 ×2; 99283; J2270; J2930

== ENCOUNTER 2021-03-13 15:51 | Emergency (ER) | payer MEDICAID, OTHER ==
[2021-03-13 15:58] VITALS: BP 145/82; PULSE 69; RESP 18; TEMP 98.1
[2021-03-13] MEDS ORDERED: MORPHINE SULFATE 2 MG/ML SYRINGE IM STA (16:43)
[2021-03-13] MEDS ORDERED: ACET/COD 300 MG/30 MG STARTER PACK 6 TAB BTL PO STA (16:44)
--- NOTE | 2021-03-13 16:47 | ED ---
Back Pain HPI - General Chief Complaint: Back Pain/Injury Stated Complaint: Revisit,Back pain Time Seen by Provider: 03/13/21 16:27 Source: patient Limitations: no limitations - History of Present Illness Initial Comments: As a 50-year-old male presenting to the emergency Department with complaints of left-sided low back pain with some mild left hip pain that happened a few days ago while at work. 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 He states he was here in the ER 2 days ago, was evaluated with x-rays and received pain medicine. He states he did follow up with [facility] yesterday and he is off of work until next week. He is here requesting pain medication. He states he is having a hard time sitting still and is still very achy. Tylenol threes didn't help. He is also been taking ibuprofen. He denies any saddle paresthesias, no numbness and tingling into his extremities. Denies any bowel or bladder incontinence, no fevers or chills. He has no further complaints. - Related Data Home Medications Medication Instructions Recorded Confirmed Omeprazole 20 mg PO BID 04/29/14 07/22/20 Simvastatin 40 mg PO HS 03/10/16 07/28/20 cloNIDine HCL [Catapres] 0.2 mg PO TID 03/10/16 07/22/20 Aspirin 81 mg PO DAILY 03/23/16 07/22/20 Ibuprofen [Motrin Ib] 400 - 600 mg PO BID PRN 01/24/18 07/22/20 ALPRAZolam [Xanax] 0.5 mg PO BID PRN 03/23/18 07/28/20 QUEtiapine XR [SEROquel XR] 150 mg PO HS 03/23/18 07/28/20 Diltiazem HCl [Diltiazem HCl 24Hr 300 mg PO DAILY 06/30/18 07/22/20 ER ([place])] Metoprolol Succinate [Toprol XL] 200 mg PO DAILY 06/30/18 06/30/18 Previous Rx's Medication Instructions Recorded Ipratropium/Albuterol Sulfate 2 puff INHALATION QID #1 inhaler 07/02/18 [Combivent Respimat Inhaler] Cephalexin [Keflex] 500 mg PO Q12HR 1 Days #14 cap 07/27/20 HYDROcodone/APAP 5-325MG [[employer] [employer] 1 tab PO Q4HR PRN 3 Days #18 tab 07/27/20 5-325] Cyclobenzaprine [Flexeril] 10 mg PO TID PRN #15 tab 03/11/21 Allergies Allergy/AdvReac Type Severity Reaction Status Date / Time No Known Allergies Allergy Verified 03/13/21 15:58 Review of Systems ROS Statement: Those systems with pertinent positive or pertinent negative responses have been documented in the HPI. ROS Other: All systems not noted in ROS Statement are negative. Past Medical History Past Medical History: GERD/Reflux, Hyperlipidemia, Hypertension Additional Past Medical History / Comment(s): Hx of pancreatitis. TONGUE LESION History of Any Multi-Drug Resistant Organisms: None Reported Past Surgical History: Cholecystectomy, Hernia Repair Additional Past Surgical History / Comment(s): SX ON NOSE TEEN FOR FX NOSE. COLONOSCOPY/EGD Past Anesthesia/Blood Transfusion Reactions: No Reported Reaction Past Psychological History: Anxiety, Bipolar Smoking Status: Current every day smoker Past Alcohol Use History: None Reported Past Drug Use History: None Reported - Past Family History Mother Family Medical History: No Reported History Father Family Medical History: Pneumonia General Exam - General Exam Comments Initial Comments: GENERAL: Patient is well-developed and well-nourished. Patient is nontoxic and in no acute distress, resting comfortably on the gurney.. HEAD: Atraumatic, normocephalic. EYES: Pupils equal round and reactive to light, extraocular movements intact, sclera anicteric, conjunctiva are normal. Eyelids were unremarkable. ENT: Moist mucous membranes. NECK: Normal range of motion, supple without lymphadenopathy or JVD. LUNGS: Unlabored respirations. Breath sounds clear to auscultation bilaterally and equal. No wheezes rales or rhonchi. HEART: Regular rate and rhythm without murmurs, rubs or gallops. ABDOMEN: Soft, nontender, normoactive bowel sounds. No guarding, no rebound. No masses appreciated. : Deferred MUSCULOSKELETAL: Normal extremities with adequate strength and normal range of motion, no pitting or edema. No clubbing or cyanosis. Increased back pain with lumbar flexion. NEUROLOGICAL: Patient is alert and oriented x 3. Motor and sensory are also intact. Cranial nerves II through XII grossly intact. Symmetrical smile. Normal speech, normal gait. PSYCH: Normal mood, normal affect. SKIN: Warm, Dry, normal turgor, no rashes or lesions noted. Limitations: no limitations Course Vital Signs 03/13/21 15:52 Temperature 98.1 F Pulse Rate 69 Respiratory 18 Rate Blood Pressure 145/82 O2 Sat by Pulse 9 L Oximetry Medical Decision Making - Medical Decision Making Patient is a 50-year-old male presenting for revisit for lumbar pain happened while at work 2 days ago. He did have lumbar x-rays 2 days ago which revealed no acute abnormality. His exam is consistent with a muscle skeletal injury. He is requesting additional pain meds. I did give him a starter pack of Tylenol 3 and a shot of pain medicine here. I recommended following up with [facility]. He is agreeable with plan of care and is stable for discharge. Disposition Clinical Impression: Strain of lumbar region Disposition: HOME SELF-CARE Condition: Stable Instructions (If sedation given, give patient instructions): Acute Low Back Pain (ED) Additional Instructions: Please return to the Emergency Department if symptoms worsen or any other concerns. Recommend using heat to the area, gentle stretching. Alternate between Tylenol and ibuprofen for discomfort. Please follow up with your doctor. Is patient prescribed a controlled substance at d/c from ED?: No Referrals: Jabari Sorto MD [Primary Care Provider] - 1-2 days Time of Disposition: 16:47
== END 2021-03-13 17:07 | disposition home or self-care (01) ==
LOC: EC 15:51
DX: S39.012A Strain of muscle, fascia and tendon of lower back, initial encounter (principal); I10 Essential (primary) hypertension; K21.9 Gastro-esophageal reflux disease without esophagitis; E78.5 Hyperlipidemia, unspecified; F41.9 Anxiety disorder, unspecified; F31.9 Bipolar disorder, unspecified; F17.200 Nicotine dependence, unspecified, uncomplicated; Z79.82 Long term (current) use of aspirin; Z90.49 Acquired absence of other specified parts of digestive tract; X50.0XXA Overexertion from strenuous movement or load, initial encounter
CPT/HCPCS: 99283; 96372; J2270

== ENCOUNTER → 2021-03-17 | Outpatient (CLI) | payer OTHER ==
--- NOTE | 2021-03-17 11:45 | XR ---
EXAMINATION TYPE: XR Hip Complete RT, 2 views DATE OF EXAM: 03/17/2021 Comparison: None Clinical History: 50 year-old male M25.551, S39.012A Findings: There is minimal marginal spurring at the right hip. Hip joint spaces relatively maintained. No acute fracture, subluxation, dislocation. Impression: Minimal degenerative change of the right hip. No acute osseous abnormality seen.
== END | disposition home or self-care (01) ==
LOC: RADXRMAIN 11:19
PROVIDERS: ATTEND Emergency Medicine
DX: M16.11 Unilateral primary osteoarthritis, right hip (principal)
CPT/HCPCS: 73502

== ENCOUNTER 2021-04-30 17:52 | Inpatient (IN) | payer MEDICAID ==
[2021-04-30] MEDS ORDERED: SODIUM CHLORIDE 0.9% 1,000 ML IV STA (18:29)
[2021-04-30] MEDS ORDERED: THIAMINE 100 MG/ML 2 ML VIAL IM STA (19:04)
[2021-04-30] MEDS ORDERED: LORazepam 2 MG/ML INJ IV PRN (19:04)
[2021-04-30] MEDS: LORazepam 2 MG/ML INJ IV PRN ×3 (19:11→22:08)
[2021-04-30 19:22] LABS: Basophils # (A) 0.1 k/uL (0-0.2); Basophils % (A) 1 %; Eosinophils % (A) 0 %; HCT 48.1 % (39.0-53.0); Lymphocytes # (A) 2.6 k/uL (1.0-4.8); Lymphocytes % (A) 19 %; MCH 29.2 pg (25.0-35.0); MCHC 33.3 g/dL (31.0-37.0); MCV 87.6 fL (80.0-100.0); Mean Platelet Volume 9.5; Monocytes # (A) 0.8 k/uL (0-1.0); Monocytes % (A) 6 %; Neutrophils % (A) 72 %; Platelet Count 286 k/uL (150-450); RDW 12.8 % (11.5-15.5); WBC 13.8 k/uL (3.8-10.6)
[2021-04-30 19:32] LABS: ALT 53 U/L (4-49); AST 81 U/L (17-59); African American GFR (CKD) >90 (>60 ml/min/1.73 sqM); Albumin 5.4 g/dL (3.5-5.0); Alkaline Phosphatase 109 U/L (38-126); Anion Gap 22 mmol/L; Blood Urea Nitrogen 6 mg/dL (9-20); Calcium 9.9 mg/dL (8.4-10.2); Carbon Dioxide 16 mmol/L (22-30); Chloride 100 mmol/L (98-107); Glucose 108 mg/dL (74-99); Lipase 49 U/L (23-300); Magnesium 1.9 mg/dL (1.6-2.3); Non-African American GFR(CKD) >90 (>60 ml/min/1.73 sqM); Sodium 138 mmol/L (137-145); Total Bilirubin 0.9 mg/dL (0.2-1.3); Total Protein 8.6 g/dL (6.3-8.2)
[2021-04-30 19:44] LABS: Potassium 6.5 mmol/L (3.5-5.1)
[2021-04-30 19:45] LABS: Alcohol 180 mg/dL
[2021-04-30] MEDS ORDERED: NALOXONE 0.4 MG/ML 1 ML VIAL IV PRN (20:57)
[2021-04-30] MEDS ORDERED: ONDANSETRON 4 MG/2 ML VIAL IVP PRN (20:57)
--- NOTE | 2021-04-30 20:57 | ED ---
Alcohol HPI - General Chief Complaint: Alcohol Stated Complaint: ETOH Time Seen by Provider: 04/30/21 18:06 Source: patient Mode of arrival: ambulatory Limitations: no limitations - History of Present Illness Initial Comments: 50-year-old male with past medical history of hypertension, hyperlipidemia who presents to the emergency department with symptoms of alcohol withdrawal. Patient states that he was a heavy alcoholic for a long time. States he's been sober for 10 years. As of recent he began drinking again. States that he is supposed to be on Xanax and [place] and because of these medications he turned to alcohol. He normally drinks a fifth of vodka every day. States he's been drinking heavily for the past week. His last alcohol intake was at 3 PM today. States he drank a pint today. He admits to palpitations and shakes. States he' s had previous alcohol withdrawal seizures. No seizure-like activity today. Denies any trauma while drinking. No chest pain or shortness of breath. No other alleviating, precipitating or modifying factors - Related Data Home Medications Medication Instructions Recorded Confirmed Omeprazole 20 mg PO BID 04/29/14 04/30/21 Simvastatin 40 mg PO HS 03/10/16 04/30/21 cloNIDine HCL [Catapres] 0.2 mg PO TID 03/10/16 04/30/21 Aspirin 81 mg PO DAILY 03/23/16 04/30/21 ALPRAZolam [Xanax] 0.5 mg PO TID PRN 03/23/18 04/30/21 Diltiazem HCl [Diltiazem HCl 24Hr 300 mg PO DAILY 06/30/18 04/30/21 ER ([place])] Metoprolol Succinate [Toprol XL] 200 mg PO DAILY 06/30/18 04/30/21 Doxepin [SINEquan] 10 mg PO BID 04/30/21 04/30/21 Metoclopramide [Reglan] 10 mg PO TID PRN 04/30/21 04/30/21 PARoxetine HCL [Paxil] 20 mg PO DAILY 04/30/21 04/30/21 QUEtiapine [SEROquel] 50 mg PO HS 04/30/21 04/30/21 QUEtiapine [SEROquel] 400 mg PO HS 04/30/21 04/30/21 Sildenafil Citrate 50 mg PO DAILY 04/30/21 04/30/21 oxyCODONE-APAP 10-325MG [Percocet 1 tab PO TID PRN 04/30/21 04/30/21 10-325 mg] tiZANidine HCL 4 mg PO DAILY 04/30/21 04/30/21 Previous Rx's Medication Instructions Recorded Ipratropium/Albuterol Sulfate 2 puff INHALATION QID #1 inhaler 07/02/18 [Combivent Respimat Inhaler] Allergies Allergy/AdvReac Type Severity Reaction Status Date / Time No Known Allergies Allergy Verified 04/30/21 20:59 Review of Systems ROS Statement: Those systems with pertinent positive or pertinent negative responses have been documented in the HPI. ROS Other: All systems not noted in ROS Statement are negative. Past Medical History Past Medical History: GERD/Reflux, Hyperlipidemia, Hypertension Additional Past Medical History / Comment(s): Hx of pancreatitis. TONGUE LESION History of Any Multi-Drug Resistant Organisms: None Reported Past Surgical History: Cholecystectomy, Hernia Repair Additional Past Surgical History / Comment(s): SX ON NOSE TEEN FOR FX NOSE. COLONOSCOPY/EGD Past Anesthesia/Blood Transfusion Reactions: No Reported Reaction Past Psychological History: Anxiety, Bipolar Smoking Status: Current every day smoker Past Alcohol Use History: Abuse, Daily Past Drug Use History: None Reported - Past Family History Mother Family Medical History: No Reported History Father Family Medical History: Pneumonia General Exam Limitations: no limitations Course Vital Signs 04/30/21 04/30/21 04/30/21 18:03 20:00 20:26 Temperature 98.7 F Pulse Rate 109 H 109 H 108 H Respiratory 20 18 18 Rate Blood Pressure 148/105 145/100 154/99 O2 Sat by Pulse 94 L 93 L 93 L Oximetry 04/30/21 04/30/21 21:32 22:00 Temperature Pulse Rate 114 H 126 H Respiratory 18 18 Rate Blood Pressure 121/90 141/85 O2 Sat by Pulse 94 L 93 L Oximetry Medical Decision Making - Medical Decision Making Upon arrival the patient is placed into room 1. He is up to continuous pulse ox and cardiac monitoring. Laboratory studies are obtained. Patient placed on CIWA protocol. Lab studies demonstrate a white count of 13.8. Alcohol is 180. Patient does have a high CIWA score - pt tachycardic with rate of 125. Recommended admission for impending DTs. Patient agreed to this. Spoke with Dr. Sorto who agreed to admit the patient. He is currently awaiting a bed on the floor - Lab Data Result diagrams: 04/30/21 19:05 04/30/21 19:51 Lab Results 04/30/21 04/30/21 04/30/21 Range/Units 19:05 19:05 19:51 WBC 13.8 H (3.8-10.6) k/uL RBC 5.50 (4.30-5.90) m/uL Hgb 16.0 (13.0-17.5) gm/dL Hct 48.1 (39.0-53.0) % MCV 87.6 (80.0-100.0) fL MCH 29.2 (25.0-35.0) pg MCHC 33.3 (31.0-37.0) g/dL RDW 12.8 (11.5-15.5) % Plt Count 286 (150-450) k/uL MPV 9.5 Neutrophils % 72 % Lymphocytes % 19 % Monocytes % 6 % Eosinophils % 0 % Basophils % 1 % Neutrophils # 10.0 H (1.3-7.7) k/uL Lymphocytes # 2.6 (1.0-4.8) k/uL Monocytes # 0.8 (0-1.0) k/uL Eosinophils # 0.0 (0-0.7) k/uL Basophils # 0.1 (0-0.2) k/uL Sodium 138 (137-145) mmol/L Potassium 6.5 H* 4.8 (3.5-5.1) mmol/L Chloride 100 (98-107) mmol/L Carbon Dioxide 16 L (22-30) mmol/L Anion Gap 22 mmol/L BUN 6 L (9-20) mg/dL Creatinine 0.67 (0.66-1.25) mg/dL Est GFR (CKD-EPI)AfAm >90 (>60 ml/min/1.73 sqM) Est GFR (CKD-EPI)NonAf >90 (>60 ml/min/1.73 sqM) Glucose 108 H (74-99) mg/dL Calcium 9.9 (8.4-10.2) mg/dL Magnesium 1.9 (1.6-2.3) mg/dL Total Bilirubin 0.9 (0.2-1.3) mg/dL AST 81 H (17-59) U/L ALT 53 H (4-49) U/L Alkaline Phosphatase 109 (38-126) U/L Total Protein 8.6 H (6.3-8.2) g/dL Albumin 5.4 H (3.5-5.0) g/dL Lipase 49 (23-300) U/L Serum Alcohol 180 mg/dL Disposition Clinical Impression: Alcohol withdrawal syndrome, Tachycardia Disposition: ADMITTED IP TO THIS HOSP Condition: Stable Is patient prescribed a controlled substance at d/c from ED?: No Decision to Admit Reason: Admit from EC Decision Date: 04/30/21 Decision Time: 20:57
[2021-04-30] MEDS ORDERED: SODIUM CHLORIDE 0.9% 1,000 ML IV ONE (23:08)
[2021-04-30] MEDS ORDERED: METOCLOPRAMIDE 10 MG TAB PO PRN (23:41)
[2021-04-30] MEDS ORDERED: oxyCODONE-APAP 10-325MG 1 EACH TAB PO PRN (23:41)
[2021-05-01] MEDS: LORazepam 2 MG/ML INJ IV PRN ×7 (01:36→18:13)
[2021-05-01 04:40] LABS: Basophils # (A) 0.1 k/uL (0-0.2); Basophils % (A) 1 %; Eosinophils % (A) 0 %; HCT 44.5 % (39.0-53.0); Lymphocytes # (A) 1.9 k/uL (1.0-4.8); Lymphocytes % (A) 13 %; MCH 29.7 pg (25.0-35.0); MCHC 33.7 g/dL (31.0-37.0); MCV 88.3 fL (80.0-100.0); Mean Platelet Volume 10.3; Monocytes # (A) 1.2 k/uL (0-1.0); Monocytes % (A) 8 %; Neutrophils # (A) 11.4 k/uL (1.3-7.7); Neutrophils % (A) 77 %; Platelet Count 258 k/uL (150-450); RBC 5.04 m/uL (4.30-5.90); RDW 12.7 % (11.5-15.5); WBC 14.9 k/uL (3.8-10.6)
[2021-05-01 04:53] LABS: ALT 50 U/L (4-49); AST 72 U/L (17-59); African American GFR (CKD) >90 (>60 ml/min/1.73 sqM); Albumin 4.5 g/dL (3.5-5.0); Albumin/Globulin Ratio 1.7; Alkaline Phosphatase 93 U/L (38-126); Anion Gap 13 mmol/L; Blood Urea Nitrogen 7 mg/dL (9-20); Calcium 9.3 mg/dL (8.4-10.2); Carbon Dioxide 23 mmol/L (22-30); Chloride 101 mmol/L (98-107); Globulin 2.6 g/dL; Glucose 122 mg/dL (74-99); Non-African American GFR(CKD) >90 (>60 ml/min/1.73 sqM); Sodium 137 mmol/L (137-145); Total Bilirubin 0.9 mg/dL (0.2-1.3); Total Protein 7.1 g/dL (6.3-8.2)
[2021-05-01] MEDS: THIAMINE 100 MG TAB PO SCH ×2 (07:39→18:13)
[2021-05-01] MEDS ORDERED: ASPIRIN 81 MG PO SCH (09:00)
[2021-05-01] MEDS ORDERED: PARoxetine 20 MG TAB PO SCH (09:00)
[2021-05-01] MEDS ORDERED: tiZANidine 4 MG TAB PO SCH (09:00)
[2021-05-01] MEDS ORDERED: DOXEPIN 10 MG CAP PO SCH (09:00)
[2021-05-01] MEDS ORDERED: PANTOPRAZOLE 40 MG TABLET PO SCH (09:00)
[2021-05-01] MEDS ORDERED: METOPROLOL SUCCINATE (ER) 100 MG TAB.ER.24H PO SCH (09:00)
[2021-05-01] MEDS ORDERED: DILTIAZEM CD 300 MG CAP.ER.24H PO SCH (09:00)
[2021-05-01] MEDS: cloNIDine HCL 0.2 MG TAB PO SCH ×2 (09:31→18:13)
--- NOTE | 2021-05-01 10:29 | P.CRDCN ---
History of Present Illness History of present illness: HISTORY OF PRESENTING ILLNESS This is a pleasant 50-year-old male past medical history significant for hypertension, alcohol abuse, depression, Bipolar, GERD/gastroparesis, dyslipidemia He does not follow with a wet cotton feeder. We have been asked to see in consultation for abnormal EKG. Patient is seen and examined in the emergency department. He presents to the emergency department due to symptoms of alcohol withdrawal. He states he has had increased depression at home and has been binge drinking at home. Currently drinks about a fifth of liquor a day for the past week. He has symptoms of palpitations and feels shakes. He denies chest pain, shortness of breath, lightheadedness, dizziness, syncope. He denies history of CA, stroke, diabetes or seizures. He currently is an every day smoker. He denies illicit drug use. On admission patient had a cardiac HR 120s, patient given his home cardiac medications and IV fluids with improvement in patient's heart rates. DIAGNOSTICS EKG reveals sinus rhythm, HR 93 frequent PVCs, bigeminy Telemetry tracings indicate sinus rhythm HR 90s, with frequent PVCs. Most recent echocardiogram in 2018 revealed an EF of 5560 percent, mild mitral regurgitation, mild tricuspid regurgitation Laboratory reviewed, WBC 14.9, hemoglobin 15, platelets 258, sodium 137, potassium 4.0, BUN 7, serum creatinine 0.73, magnesium 1.9, AST 72, ALT 50, lipase 49, serum alcohol level CLXXX, COVID-19 PCR negative Current home medications include simvastatin 40 mg nightly, metoprolol succinate 200 mg daily, Cardizem 30 mg daily, aspirin 81 mg daily, Seroquel, tizanidine, paroxetine, reglan, omeprazole, PRN xanax REVIEW OF SYSTEMS At the time of my exam: CONSTITUTIONAL: Denies fever or chills. CARDIOVASCULAR: +palpitations Denies chest pain, shortness of breath, orthopnea, PND RESPIRATORY: Denies cough. GASTROINTESTINAL: Denies abdominal pain, diarrhea, constipation, nausea or vomiting. MUSCULOSKELETAL: Denies myalgias. NEUROLOGIC: Denies numbness, tingling, headacbe or weakness. ENDOCRINE: Denies fatigue, weight change, polydipsia or polyurina. GENITOURINARY: Denies burning, hematuria or urgency with micturation. HEMATOLOGIC: Denies history of anemia or bleeding. PHYSICAL EXAMINATION Blood pressure 158/94, heart rate 80, afebrile, maintaining saturations on room air CONSTITUTIONAL: Appears HEENT: Head is normocephalic. Pupils are equal, round. Sclerae anicteric. Mucous membranes of the mouth are moist. No JVD. No carotid bruit. CHEST EXAMINATION: Lungs are clear to auscultation. No chest wall tenderness is noted on palpation or with deep breathing. HEART EXAMINATION: Regular, tacyhcardic rate and rhythm. S1, S2 heard. No murmurs, gallops or rub. ABDOMEN: Soft, nontender. Positive bowel sounds. EXTREMITIES: 2+ peripheral pulses, no lower extremity edema and no calf tenderness. NEUROLOGIC EXAMINATION: Patient is awake, alert and oriented x3. ASSESSMENT Alcohol Withdrawal Sinus tachycardia Premature ventricular complexes History of hypertension Dyslipidemia History of bipolar History of depression PLAN -Obtain 2D echocardiogram -Continue home cardizem, metoprolol, aspirin, statin -Continue cardiac telemetry -Alcohol withdrawal per primary -Smoking and alcohol cessation discussed and highly recommended. -Further recommendations per clinical course Nurse Practitioner note has been reviewed, I agree with a documented findings and plan of care. Patient was seen and examined. Past Medical History Past Medical History: GERD/Reflux, Hyperlipidemia, Hypertension Additional Past Medical History / Comment(s): Hx of pancreatitis. TONGUE LESION History of Any Multi-Drug Resistant Organisms: None Reported Past Surgical History: Cholecystectomy, Hernia Repair Additional Past Surgical History / Comment(s): SX ON NOSE TEEN FOR FX NOSE. COLONOSCOPY/EGD Past Anesthesia/Blood Transfusion Reactions: No Reported Reaction Past Psychological History: Anxiety, Bipolar Smoking Status: Current every day smoker Past Alcohol Use History: Abuse, Daily Past Drug Use History: None Reported - Past Family History Mother Family Medical History: No Reported History Father Family Medical History: Pneumonia Medications and Allergies Home Medications Medication Instructions Recorded Confirmed Type Omeprazole 20 mg PO BID 04/29/14 04/30/21 History Simvastatin 40 mg PO HS 03/10/16 04/30/21 History cloNIDine HCL [Catapres] 0.2 mg PO TID 03/10/16 04/30/21 History Aspirin 81 mg PO DAILY 03/23/16 04/30/21 History ALPRAZolam [Xanax] 0.5 mg PO TID PRN 03/23/18 04/30/21 History Diltiazem HCl [Diltiazem HCl 24Hr 300 mg PO DAILY 06/30/18 04/30/21 History ER ([place])] Metoprolol Succinate [Toprol XL] 200 mg PO DAILY 06/30/18 04/30/21 History Ipratropium/Albuterol Sulfate 2 puff INHALATION QID #1 inhaler 07/02/18 04/30/21 Rx [Combivent Respimat Inhaler] Doxepin [SINEquan] 10 mg PO BID 04/30/21 04/30/21 History Metoclopramide [Reglan] 10 mg PO TID PRN 04/30/21 04/30/21 History PARoxetine HCL [Paxil] 20 mg PO DAILY 04/30/21 04/30/21 History QUEtiapine [SEROquel] 50 mg PO HS 04/30/21 04/30/21 History QUEtiapine [SEROquel] 400 mg PO HS 04/30/21 04/30/21 History Sildenafil Citrate 50 mg PO DAILY 04/30/21 04/30/21 History oxyCODONE-APAP 10-325MG [Percocet 1 tab PO TID PRN 04/30/21 04/30/21 History 10-325 mg] tiZANidine HCL 4 mg PO DAILY 04/30/21 04/30/21 History Allergies Allergy/AdvReac Type Severity Reaction Status Date / Time No Known Allergies Allergy Verified 04/30/21 20:59 Physical Exam Vitals: Vital Signs Temp Pulse Resp BP Pulse Ox 05/01/21 07:34 138 H 18 164/95 98 05/01/21 06:33 117 H 18 177/87 94 L 05/01/21 05:00 138 H 18 05/01/21 02:00 128 H 18 139/92 94 L 05/01/21 01:50 102 H 20 128/89 93 L 05/01/21 00:00 124 H 18 04/30/21 23:00 120 H 18 04/30/21 22:00 126 H 18 141/85 93 L 04/30/21 21:32 114 H 18 121/90 94 L 04/30/21 20:26 108 H 18 154/99 93 L 04/30/21 20:00 109 H 18 145/100 93 L 04/30/21 18:03 98.7 F 109 H 20 148/105 94 L Intake and Output 04/30/21 05/01/21 05/01/21 22:59 06:59 14:59 Output Total 600 Balance -600 Output: Urine 600 Other: Weight 120.656 kg Results 05/01/21 04:00 05/01/21 04:00 Cardiac Enzymes 04/30/21 05/01/21 Range/Units 19:05 04:00 AST 81 H 72 H (17-59) U/L CBC 04/30/21 05/01/21 Range/Units 19:05 04:00 WBC 13.8 H 14.9 H (3.8-10.6) k/uL RBC 5.50 5.04 (4.30-5.90) m/uL Hgb 16.0 15.0 (13.0-17.5) gm/dL Hct 48.1 44.5 (39.0-53.0) % Plt Count 286 258 (150-450) k/uL Comprehensive Metabolic Panel 04/30/21 04/30/21 05/01/21 Range/Units 19:05 19:51 04:00 Sodium 138 137 (137-145) mmol/L Potassium 6.5 H* 4.8 4.0 (3.5-5.1) mmol/L Chloride 100 101 (98-107) mmol/L Carbon Dioxide 16 L 23 (22-30) mmol/L BUN 6 L 7 L (9-20) mg/dL Creatinine 0.67 0.73 (0.66-1.25) mg/dL Glucose 108 H 122 H (74-99) mg/dL Calcium 9.9 9.3 (8.4-10.2) mg/dL AST 81 H 72 H (17-59) U/L ALT 53 H 50 H (4-49) U/L Alkaline Phosphatase 109 93 (38-126) U/L Total Protein 8.6 H 7.1 (6.3-8.2) g/dL Albumin 5.4 H 4.5 (3.5-5.0) g/dL Current Medications Generic Name Dose Route Start Last Admin Trade Name Freq PRN Reason Stop Dose Admin Aspirin 81 mg 05/01/21 09:00 Aspirin 81 Mg PO DAILY [facility] Atorvastatin Calcium 20 mg 05/01/21 21:00 Atorvastatin 20 Mg Tab PO HS MEGHNA Clonidine 0.2 mg 05/01/21 09:00 Clonidine Hcl 0.2 Mg Tab PO TID MEGHNA Diltiazem HCl 300 mg 05/01/21 09:00 05/01/21 07:40 Diltiazem Cd 300 Mg Cap.Er.24h PO 300 mg DAILY MEGHNA Administration Doxepin HCl 10 mg 05/01/21 09:00 Doxepin 10 Mg Cap PO BID MEGHNA Lorazepam 1 mg 04/30/21 19:04 05/01/21 07:40 Lorazepam 2 Mg/Ml Inj IV 1 mg Q2HR PRN Administration CIWA 8 or 9 Lorazepam 1 mg 04/30/21 19:04 05/01/21 06:01 Lorazepam 2 Mg/Ml Inj IV 1 mg Q1HR PRN Administration CIWA 10 to 15 Lorazepam 2 mg 04/30/21 19:04 Lorazepam 2 Mg/Ml Inj IV 05/02/21 19:04 Q10M PRN CIWA 16 or higher Metoclopramide HCl 10 mg 04/30/21 23:41 Metoclopramide 10 Mg Tab PO TID PRN Nausea Metoprolol Succinate 200 mg 05/01/21 09:00 05/01/21 07:39 Metoprolol Succinate (Er) 100 Mg Tab.Er.24h PO 200 mg DAILY MEGHNA Administration Naloxone HCl 0.2 mg 04/30/21 20:57 Naloxone 0.4 Mg/Ml 1 Ml Vial IV Q2M PRN Opioid Reversal Ondansetron HCl 4 mg 04/30/21 20:57 05/01/21 03:29 Ondansetron 4 Mg/2 Ml Vial IVP 4 mg Q8HR PRN Administration Nausea And Vomiting Oxycodone/Acetaminophen 1 each 04/30/21 23:41 Oxycodone-Apap 10-325mg 1 Each Tab PO TID PRN Pain Pantoprazole Sodium 40 mg 05/01/21 09:00 Pantoprazole 40 Mg Tablet PO BID MEGHNA Paroxetine HCl 20 mg 05/01/21 09:00 Paroxetine 20 Mg Tab PO DAILY MEGHNA Quetiapine Fumarate 50 mg 05/01/21 21:00 Quetiapine 50 Mg Tab PO HS MEGHNA Quetiapine Fumarate 400 mg 05/01/21 21:00 Quetiapine 400 Mg Tab PO HS [facility] Thiamine HCl 100 mg 05/01/21 07:30 05/01/21 07:39 Thiamine 100 Mg Tab PO 100 mg BID-W/MEALS MEGHNA Administration Tizanidine HCl 4 mg 05/01/21 09:00 Tizanidine 4 Mg Tab PO DAILY EMGHNA Intake and Output 04/30/21 05/01/21 05/01/21 22:59 06:59 14:59 Output Total 600 Balance -600 Output: Urine 600 Other: Weight 120.656 kg 05/01/21 04:00 05/01/21 04:00
--- NOTE | 2021-05-01 11:06 | ECHOF ---
Referral Reason:LV function MEASUREMENTS -------- HEIGHT: 165.1 cm WEIGHT: 120.7 kg BP: RVIDd: 2.5 cm (< 3.3) IVSd: 0.9 cm (0.6 - 1.1) LVIDd: 5.0 cm (3.9 - 5.3) LVPWd: 1.2 cm (0.6 - 1.1) IVSs: 1.8 cm LVIDs: 3.6 cm LVPWs: 1.8 cm Ao Diam: 3.1 cm (2.0 - 3.7) AV Cusp: 2.3 cm (1.5 - 2.6) LA Diam: 3.7 cm (2.7 - 3.8) MV EXCURSION: 10.065 mm (> 18.000) MV EF SLOPE: 45 mm/s (70 - 150) EPSS: 1.8 cm MV E Jesus Alberto: 0.49 m/s MV DecT: 245 ms MV A Jesus Alberto: 1.00 m/s MV E/A Ratio: 0.50 RAP: 5.00 mmHg RVSP: 13.38 mmHg FINDINGS -------- Sinus rhythm with extra systolic beats. This was a technically difficult study with suboptimal views. The left ventricular size is normal. Left ventricular wall thickness is normal. Overall left vent ricular systolic function is normal with, an EF between 55 - 60 %. The right ventricle is normal in size. The left atrial size is normal. The right atrial size is normal. Lumason used The aortic valve is trileaflet and appears structurally normal. The mitral valve is normal. There is trace mitral regurgitation. The tricuspid valve appears structurally normal. Trace tricuspid regurgitation present. Right yanelis tricular systolic pressure is normal at < 35 mmHg. Trace/mild (physiologic) pulmonic regurgitation. The aortic root size is normal. Normal inferior vena cava with normal inspiratory collapse consistent with estimated right atrial pre ssure of 5 mmHg. There is no pericardial effusion. CONCLUSIONS -------- 1. Sinus rhythm with extra systolic beats. 2. The left ventricular size is normal. 3. Left ventricular wall thickness is normal. 4. Overall left ventricular systolic function is normal with, an EF between 55 - 60 %. 5. There is trace mitral regurgitation. 6. Trace tricuspid regurgitation present. 7. Trace/mild (physiologic) pulmonic regurgitation. 8. There is no pericardial effusion. REGISTERED NURSE PRACTITIONER: Aleisha Wong RDCS
[2021-05-01 16:19] VITALS: TEMP 98.6
[2021-05-01 17:26] VITALS: BP 158/95; PULSE 80; RESP 22
[2021-05-01] MEDS ORDERED: QUEtiapine 400 MG TAB PO SCH (21:00)
[2021-05-01] MEDS ORDERED: ATORVASTATIN 20 MG TAB PO SCH (21:00)
[2021-05-01] MEDS ORDERED: QUEtiapine 50 MG TAB PO SCH (21:00)
--- NOTE | 2021-05-02 06:36 | HP ---
HISTORY AND PHYSICAL 50-year-old white male came into the hospital with hypertension, alcohol abuse, depression, bipolar, GERD, gastroparesis, dyslipidemia. Cardiology is consulted for bigeminy, trigeminy, and multiple PVCs. Has been binge drinking for increasing depression at home. Has done a fifth of liquor a day for the past week, came in for alcohol withdrawal. He wants to go to [place]. Monitor shows bigeminy/trigeminy for which Cardiology has been consulted. No chest pain. Ejection fraction on echo is normal. Labs reviewed. Home medicines reviewed. REVIEW OF SYMPTOMS: 14-point review of system: Tremors, weakness, depression, alcohol withdrawal. PHYSICAL EXAM: Vital signs stable, afebrile. CARDIOVASCULAR S1, S2. LUNGS: Clear. GI soft. Hematology negative Homans. PSYCH: Fair mood and affect. NEUROLOGIC: Alert and orient x3. OPHTHALMOLOGIC: Pupils equal, round, reactive to light and accommodation. ASSESSMENT: 1. Alcohol withdrawal. 2. Tachycardia. 3. Premature ventricular contractions. 4. Hypertension. 5. Dyslipidemia. 6. Bipolar depression. Echo has been ordered. Cardiac medicines were ordered. Telemetry. Alcohol withdrawal protocol. Smoking, alcohol cessation, CIWA protocol. Prognosis guarded. Await for Cardiology. MMODL / IJN: [id number] /
== END 2021-05-01 19:38 | disposition home or self-care (01) | DRG 897 ==
LOC: EC 17:52 → 5NMEDONC 20:57 → 3SCARD 05-01 08:51
PROVIDERS: ADMIT Family Medicine; ATTEND Family Medicine
DX: F10.239 Alcohol dependence with withdrawal, unspecified (principal); F31.30 Bipolar disorder, current episode depressed, mild or moderate severity, unspecified; E78.5 Hyperlipidemia, unspecified; F17.200 Nicotine dependence, unspecified, uncomplicated; I10 Essential (primary) hypertension; K21.9 Gastro-esophageal reflux disease without esophagitis; Z20.822 Contact with and (suspected) exposure to COVID-19; Z79.82 Long term (current) use of aspirin; Z79.899 Other long term (current) drug therapy; Y90.6 Blood alcohol level of 120-199 mg/100 ml; K31.84 Gastroparesis; F41.9 Anxiety disorder, unspecified; R00.0 Tachycardia, unspecified; R56.9 Unspecified convulsions; I49.3 Ventricular premature depolarization
CPT/HCPCS: 36415; 80053; 80320; 83690; 83735; 84132; 85025; 87635; 93306; 96360; 96361; 96372; 99285

== ENCOUNTER 2021-05-01 20:17 | Inpatient (IN) | payer MEDICAID ==
[2021-05-01] MEDS ORDERED: SODIUM CHLORIDE 0.9% 1,000 ML IV STA (21:12)
[2021-05-01] MEDS ORDERED: LORazepam 2 MG/ML INJ IV STA (21:12)
[2021-05-01] MEDS ORDERED: LORazepam 2 MG/ML INJ IV PRN (21:18)
[2021-05-01] MEDS ORDERED: NALOXONE 0.4 MG/ML 1 ML VIAL IV PRN (21:18)
--- NOTE | 2021-05-01 21:18 | ED ---
General Adult HPI - General Chief complaint: Recheck/Abnormal Lab/Rx Stated complaint: Altered, Withdrawal Time Seen by Provider: 05/01/21 20:36 Source: patient, RN notes reviewed Mode of arrival: wheelchair Limitations: no limitations - History of Present Illness Initial comments: Patient is a pleasant 50-year-old male presenting to the emergency department with concerns for alcohol withdrawal. Patient states he was drinking 1/5 of alcohol per day. Patient was in the emergency department today and admitted. Patient went to the floor and left AGAINST MEDICAL ADVICE. Patient is showing regret for this and requests to be admitted again. Patient denies suicidal or homicidal thoughts. Patient feels anxious and jittery. No confusion. No abdom inal pain - Related Data Home Medications Medication Instructions Recorded Confirmed Omeprazole 20 mg PO BID 04/29/14 04/30/21 Simvastatin 40 mg PO HS 03/10/16 04/30/21 cloNIDine HCL [Catapres] 0.2 mg PO TID 03/10/16 04/30/21 Aspirin 81 mg PO DAILY 03/23/16 04/30/21 ALPRAZolam [Xanax] 0.5 mg PO TID PRN 03/23/18 04/30/21 Diltiazem HCl [Diltiazem HCl 24Hr 300 mg PO DAILY 06/30/18 04/30/21 ER ([place])] Metoprolol Succinate [Toprol XL] 200 mg PO DAILY 06/30/18 04/30/21 Doxepin [SINEquan] 10 mg PO BID 04/30/21 04/30/21 Metoclopramide [Reglan] 10 mg PO TID PRN 04/30/21 04/30/21 PARoxetine HCL [Paxil] 20 mg PO DAILY 04/30/21 04/30/21 QUEtiapine [SEROquel] 50 mg PO HS 04/30/21 04/30/21 QUEtiapine [SEROquel] 400 mg PO HS 04/30/21 04/30/21 Sildenafil Citrate 50 mg PO DAILY 04/30/21 04/30/21 oxyCODONE-APAP 10-325MG [Percocet 1 tab PO TID PRN 04/30/21 04/30/21 10-325 mg] tiZANidine HCL 4 mg PO DAILY 09/30/21 09/30/21 Previous Rx's Medication Instructions Recorded Ipratropium/Albuterol Sulfate 2 puff INHALATION QID #1 inhaler 07/02/18 [Combivent Respimat Inhaler] Allergies Allergy/AdvReac Type Severity Reaction Status Date / Time No Known Allergies Allergy Verified 05/01/21 20:27 Review of Systems ROS Statement: Those systems with pertinent positive or pertinent negative responses have been documented in the HPI. ROS Other: All systems not noted in ROS Statement are negative. Constitutional: Denies: fever Eyes: Denies: eye pain ENT: Denies: ear pain Respiratory: Denies: cough Cardiovascular: Denies: chest pain Endocrine: Reports: fatigue Gastrointestinal: Reports: nausea. Denies: abdominal pain Genitourinary: Denies: dysuria Musculoskeletal: Denies: back pain Skin: Denies: rash Neurological: Denies: weakness Psychiatric: Reports: as per HPI, anxiety. Denies: homicidal thoughts, suicidal thoughts Past Medical History Past Medical History: GERD/Reflux, Hyperlipidemia, Hypertension Additional Past Medical History / Comment(s): Hx of pancreatitis. TONGUE LESION History of Any Multi-Drug Resistant Organisms: None Reported Past Surgical History: Cholecystectomy, Hernia Repair Additional Past Surgical History / Comment(s): SX ON NOSE TEEN FOR FX NOSE. COLONOSCOPY/EGD Past Anesthesia/Blood Transfusion Reactions: No Reported Reaction Past Psychological History: Anxiety, Bipolar Smoking Status: Current every day smoker Past Alcohol Use History: Abuse, Daily Past Drug Use History: None Reported - Past Family History Mother Family Medical History: No Reported History Father Family Medical History: Pneumonia General Exam Limitations: no limitations General appearance: alert, in no apparent distress Head exam: Present: normocephalic Eye exam: Present: normal appearance Neck exam: Present: normal inspection Respiratory exam: Present: normal lung sounds bilaterally Cardiovascular Exam: Present: regular rate, normal rhythm GI/Abdominal exam: Present: soft. Absent: tenderness Extremities exam: Present: normal inspection, full ROM Neurological exam: Present: alert Psychiatric exam: Present: normal affect, normal mood Skin exam: Present: normal color Course Vital Signs 05/01/21 20:24 Temperature 98.7 F Pulse Rate 96 Respiratory 19 Rate Blood Pressure 154/87 O2 Sat by Pulse 97 Oximetry Medical Decision Making - Medical Decision Making Case was discussed in detail with Dr. Sorto who is willing to readmit his patient who just left. Disposition Clinical Impression: Alcohol withdrawal syndrome Disposition: ADMITTED IP TO THIS HOSP Is patient prescribed a controlled substance at d/c from ED?: No Referrals: Jabari Sorto MD [Primary Care Provider] - 1-2 days Decision Time: 21:18
[2021-05-01] MEDS ORDERED: oxyCODONE-APAP 10-325MG 1 EACH TAB PO PRN (22:15)
[2021-05-02] MEDS: LORazepam 2 MG/ML INJ IV PRN ×7 (01:08→19:40)
[2021-05-02] MEDS: SODIUM CHLORIDE 0.9% 1,000 ML IV SCH ×3 (01:09→23:12)
[2021-05-02] MEDS: ACAMPROSATE CALCIUM 333 MG TABLET.DR PO SCH ×4 (01:10→21:53)
[2021-05-02] MEDS: IPRATROPIUM-ALBUTEROL 3 ML NEB INHALATION SCH ×4 (08:09→20:05)
[2021-05-02] MEDS: DILTIAZEM CD 300 MG CAP.ER.24H PO SCH (08:11)
[2021-05-02] MEDS: PARoxetine 20 MG TAB PO SCH (08:11)
[2021-05-02] MEDS: PANTOPRAZOLE 40 MG TABLET PO SCH ×2 (08:11→21:59)
[2021-05-02] MEDS: DOXEPIN 10 MG CAP PO SCH ×2 (08:11→21:54)
[2021-05-02] MEDS: cloNIDine HCL 0.2 MG TAB PO SCH ×3 (08:11→21:54)
[2021-05-02] MEDS: THIAMINE 100 MG TAB PO SCH ×2 (08:11→15:25)
[2021-05-02] MEDS: ASPIRIN 81 MG PO SCH (08:11)
[2021-05-02 08:37] LABS: Basophils # (A) 0.1 k/uL (0-0.2); Basophils % (A) 1 %; Eosinophils % (A) 0 %; HCT 44.5 % (39.0-53.0); HGB 14.8 gm/dL (13.0-17.5); Lymphocytes # (A) 2.1 k/uL (1.0-4.8); Lymphocytes % (A) 20 %; MCH 29.6 pg (25.0-35.0); MCHC 33.3 g/dL (31.0-37.0); MCV 88.8 fL (80.0-100.0); Mean Platelet Volume 9.9; Monocytes # (A) 0.7 k/uL (0-1.0); Monocytes % (A) 7 %; Neutrophils # (A) 7.5 k/uL (1.3-7.7); Neutrophils % (A) 70 %; Platelet Count 210 k/uL (150-450); RBC 5.01 m/uL (4.30-5.90); RDW 12.7 % (11.5-15.5); WBC 10.7 k/uL (3.8-10.6)
[2021-05-02 08:51] LABS: ALT 49 U/L (4-49); AST 75 U/L (17-59); African American GFR (CKD) >90 (>60 ml/min/1.73 sqM); Albumin 4.5 g/dL (3.5-5.0); Alkaline Phosphatase 79 U/L (38-126); Anion Gap 11 mmol/L; Blood Urea Nitrogen 7 mg/dL (9-20); Calcium 9.7 mg/dL (8.4-10.2); Carbon Dioxide 24 mmol/L (22-30); Chloride 100 mmol/L (98-107); Glucose 131 mg/dL (74-99); Magnesium 1.6 mg/dL (1.6-2.3); Non-African American GFR(CKD) >90 (>60 ml/min/1.73 sqM); Potassium 3.8 mmol/L (3.5-5.1); Sodium 135 mmol/L (137-145); Total Bilirubin 1.2 mg/dL (0.2-1.3); Total Protein 7.1 g/dL (6.3-8.2)
[2021-05-02] MEDS: METOPROLOL SUCCINATE (ER) 100 MG TAB.ER.24H PO SCH (08:54)
--- NOTE | 2021-05-02 15:24 | HP ---
HISTORY AND PHYSICAL This is a 50-year-old white male with alcohol withdrawal. He had been drinking about one fifth of alcohol per day. He left AMA and then he came back to the hospital due to feeling weak, fatigued. He feels anxious . No confusion. No abdominal pain. He is feeling a little bit depressed and that is why he has been drinking alcohol. He has a history of alcoholism apparently that I did not know about. Medicines include Reglan 10 mg t.i.d., Paxil 20 daily, Seroquel 450 at night, Percocet 10/325 t.i.d., tizanidine 4 mg daily. ALLERGIES: NO KNOWN DRUG ALLERGIES. REVIEW OF SYSTEMS: Fourteen-point review of systems negative except for mentioned in HPI. PAST MEDICAL HISTORY: GERD, hypertension, dyslipidemia, depression. He is not suicidal. SURGERIES: Cholecystectomy, hernia repair. FAMILY HISTORY: Father had pneumonia. Mother negative. PHYSICAL EXAMINATION: Temperature 97.1, pulse is in the 90s, blood pressure 150s over 80s, O2 97, respiratory 18-20. CARDIOVASCULAR: S1, S2. LUNGS: Clear. GI soft. Hematology: Negative Homans. Skin is a little bit dry. Dry mucous membranes. ASSESSMENT: 1. Alcohol withdrawal syndrome. 2. Dehydration. 3. History of depression. [place] been set up to go to alcohol rehab. We started him on Campral for alcohol withdrawal. Electrolytes appear to be normal at this point. CIWA protocol has been ordered. 1. Hypertension acceleration. Blood pressure 160s over 90s. He is started on his home blood pressure medications. Please see further orders. Cardiology had seen him for bigeminy trigeminy yesterday and cleared him. MMODL / IJN: [id number] /
[2021-05-02] MEDS: ATORVASTATIN 20 MG TAB PO SCH (21:53)
[2021-05-02] MEDS: QUEtiapine 400 MG TAB PO SCH (21:54)
[2021-05-02] MEDS: QUEtiapine 50 MG TAB PO SCH (23:05)
[2021-05-03] MEDS: THIAMINE 100 MG TAB PO SCH ×2 (08:22→15:08)
[2021-05-03] MEDS: PARoxetine 20 MG TAB PO SCH (08:22)
[2021-05-03] MEDS: DILTIAZEM CD 300 MG CAP.ER.24H PO SCH (08:22)
[2021-05-03] MEDS: DOXEPIN 10 MG CAP PO SCH ×2 (08:22→22:57)
[2021-05-03] MEDS: cloNIDine HCL 0.2 MG TAB PO SCH ×3 (08:22→21:22)
[2021-05-03] MEDS: PANTOPRAZOLE 40 MG TABLET PO SCH ×2 (08:22→21:22)
[2021-05-03] MEDS: ACAMPROSATE CALCIUM 333 MG TABLET.DR PO SCH ×3 (08:22→22:57)
[2021-05-03] MEDS: ASPIRIN 81 MG PO SCH (08:22)
[2021-05-03] MEDS: METOPROLOL SUCCINATE (ER) 100 MG TAB.ER.24H PO SCH (09:13)
[2021-05-03] MEDS: IPRATROPIUM-ALBUTEROL 3 ML NEB INHALATION SCH ×4 (09:43→19:16)
[2021-05-03] MEDS: LORazepam 2 MG/ML INJ IV PRN ×4 (09:51→21:23)
--- NOTE | 2021-05-03 20:14 | P.PN ---
Progress Note - Text Progress Note Date: 05/03/21 Presenting complaint Anxious Interval history: I'm rounding for Dr. Jabari Sorto today This patient who drinks about a fifth of alcohol daily admitted with concerns alcohol withdrawal. Patient somewhat anxious. Oral intake is good. No fever no chills. Laying in bed. On CIWA scale Review of systems: Was done for constitutional, cardiovascular, GI, pulmonary. relevant finding as above Active Medications Acamprosate (Acamprosate Calcium 333 Mg Tablet.) 666 mg PO TID [facility] Last Admin: 05/03/21 15:08 Dose: 666 mg Documented by: Albuterol/Ipratropium (Ipratropium-Albuterol 3 Ml Neb) 3 ml INHALATION RT-QID [facility] Last Admin: 05/03/21 19:16 Dose: Not Given Documented by: Aspirin (Aspirin 81 Mg) 81 mg PO DAILY [facility] Last Admin: 05/03/21 08:22 Dose: 81 mg Documented by: Atorvastatin Calcium (Atorvastatin 20 Mg Tab) 20 mg PO HS [facility] Last Admin: 05/02/21 21:53 Dose: 20 mg Documented by: Clonidine (Clonidine Hcl 0.2 Mg Tab) 0.2 mg PO TID [facility] Last Admin: 05/03/21 15:08 Dose: 0.2 mg Documented by: Diltiazem HCl (Diltiazem Cd 300 Mg Cap.Er.24h) 300 mg PO DAILY [facility] Last Admin: 05/03/21 08:22 Dose: 300 mg Documented by: Doxepin HCl (Doxepin 10 Mg Cap) 10 mg PO BID [facility] Last Admin: 05/03/21 08:22 Dose: 10 mg Documented by: Lorazepam (Lorazepam 2 Mg/Ml Inj) 1 mg IV Q2HR PRN PRN Reason: CIWA 8 or 9 Last Admin: 05/03/21 15:08 Dose: 1 mg Documented by: Lorazepam (Lorazepam 2 Mg/Ml Inj) 1 mg IV Q1HR PRN PRN Reason: CIWA 10 to 15 Last Admin: 05/02/21 01:08 Dose: 1 mg Documented by: Lorazepam (Lorazepam 2 Mg/Ml Inj) 2 mg IV Q10M PRN PRN Reason: CIWA 16 or higher Stop: 05/03/21 21:18 Last Admin: 05/02/21 23:04 Dose: 2 mg Documented by: Metoprolol Succinate (Metoprolol Succinate (Er) 100 Mg Tab.Er.24h) 200 mg PO DAILY [facility] Last Admin: 05/03/21 09:13 Dose: 200 mg Documented by: Naloxone HCl (Naloxone 0.4 Mg/Ml 1 Ml Vial) 0.2 mg IV Q2M PRN PRN Reason: Opioid Reversal Oxycodone/Acetaminophen (Oxycodone-Apap 10-325mg 1 Each Tab) 1 each PO TID PRN PRN Reason: Pain Pantoprazole Sodium (Pantoprazole 40 Mg Tablet) 20 mg PO BID [facility] Last Admin: 05/03/21 08:22 Dose: 20 mg Documented by: Paroxetine HCl (Paroxetine 20 Mg Tab) 20 mg PO DAILY [facility] Last Admin: 05/03/21 08:22 Dose: 20 mg Documented by: Quetiapine Fumarate (Quetiapine 50 Mg Tab) 50 mg PO [facility] Last Admin: 05/02/21 23:05 Dose: 50 mg Documented by: Quetiapine Fumarate (Quetiapine 400 Mg Tab) 400 mg PO [facility] Last Admin: 05/02/21 21:54 Dose: 400 mg Documented by: Thiamine HCl (Thiamine 100 Mg Tab) 100 mg PO BID-W/MEALS [facility] Last Admin: 05/03/21 15:08 Dose: 100 mg Documented by: On examination: VITAL SIGNS: 97.7, 81, 17, 140/86, 94% room air GENERAL APPEARANCE: BMI 33.2, laying in bed, slightly anxious HEENT: Normal external appearance of nose and ear. Oral cavity normal EYES: Pupils equal. Conjunctiva normal. NECK: JVD not raised. Mass not palpable. RESPIRATORY: Respiratory effort normal. Lungs clear to auscultation. CARDIOVASCULAR: First and second sounds normal. No edema. ABDOMEN: Soft. Liver and spleen not palpable. No tenderness. No mass palpable. PSYCHIATRY: Alert and oriented x3. Mood and affect slightly anxious INVESTIGATIONS, reviewed in the clinical context: White count 10.7 hemoglobin 14.8 platelets 210 potassium 3.8 creatinine 0.7 AST 75 ALT 49 Assessment and plan: -Acute alcohol withdrawal syndrome Continue with CIWA scale -Alcohol use disorder Patient is hoping to go to [place] when discharged. acamprosate 666 mg 3 times a day -GERD Protonix 20 mg twice a day -Hyperlipidemia Lipitor 20 mg daily at bedtime -Essential hypertension Toprol-XL 200 mg daily, Cardizem CD 300 mg daily Catapres 0.2 mg 3 times a day -Bipolar disorder Seroquel 450 mg, Paxil 20 mg daily doxepin 10 mg twice a day -Chronic nicotine dependence, cigarette smoker Nicotine patch 21 -COPD in a current cigarette smoker DuoNeb 4 times a day, Care was discussed with the patient. He is hoping to go to [place]. Continue current medications. Nicotine patch.
[2021-05-03] MEDS: QUEtiapine 400 MG TAB PO SCH (21:22)
[2021-05-03] MEDS: NICOTINE 21MG/24HR PATCH TRANSDERM SCH (21:22)
[2021-05-03] MEDS: QUEtiapine 50 MG TAB PO SCH (21:22)
[2021-05-03] MEDS: ATORVASTATIN 20 MG TAB PO SCH (21:30)
[2021-05-04] MEDS: IPRATROPIUM-ALBUTEROL 3 ML NEB INHALATION SCH ×2 (07:11→11:33)
[2021-05-04] MEDS: PARoxetine 20 MG TAB PO SCH (07:22)
[2021-05-04] MEDS: cloNIDine HCL 0.2 MG TAB PO SCH (07:22)
[2021-05-04] MEDS: PANTOPRAZOLE 40 MG TABLET PO SCH (07:22)
[2021-05-04] MEDS: THIAMINE 100 MG TAB PO SCH (07:22)
[2021-05-04] MEDS: ASPIRIN 81 MG PO SCH (07:22)
[2021-05-04] MEDS: DOXEPIN 10 MG CAP PO SCH (07:23)
[2021-05-04] MEDS: DILTIAZEM CD 300 MG CAP.ER.24H PO SCH (07:23)
[2021-05-04] MEDS: ACAMPROSATE CALCIUM 333 MG TABLET.DR PO SCH (07:23)
[2021-05-04] MEDS: NICOTINE 21MG/24HR PATCH TRANSDERM SCH (07:23)
[2021-05-04] MEDS: METOPROLOL SUCCINATE (ER) 100 MG TAB.ER.24H PO SCH (07:24)
[2021-05-04 08:22] VITALS: RESP 16
[2021-05-04] MEDS ORDERED: busPIRone HCl 10 MG TAB PO STA (12:53)
[2021-05-04 13:33] VITALS: BP 133/80; PULSE 53; TEMP 97.8
== END 2021-05-04 13:52 | disposition home or self-care (01) | DRG 897 ==
LOC: EC 20:17 → 4SSUR 21:18
PROVIDERS: ADMIT Family Medicine; ATTEND Family Medicine
DX: F10.239 Alcohol dependence with withdrawal, unspecified (principal); E78.5 Hyperlipidemia, unspecified; E86.0 Dehydration; F17.210 Nicotine dependence, cigarettes, uncomplicated; F31.9 Bipolar disorder, unspecified; I10 Essential (primary) hypertension; J44.9 Chronic obstructive pulmonary disease, unspecified; K21.9 Gastro-esophageal reflux disease without esophagitis; Z53.29 Procedure and treatment not carried out because of patient's decision for other reasons; Z79.82 Long term (current) use of aspirin; Z79.899 Other long term (current) drug therapy; R00.8 Other abnormalities of heart beat
CPT/HCPCS: 80053; 83735; 85025; 94640; 99285

== ENCOUNTER 2021-05-20 13:03 | Emergency (ER) | payer MEDICAID, OTHER ==
[2021-05-20] MEDS ORDERED: MORPHINE SULFATE 2 MG/ML SYRINGE IM ONE (13:28)
[2021-05-20] MEDS ORDERED: methylPREDNISolone SOD SUCCI 125 MG/2 ML VIAL IM ONE (13:28)
--- NOTE | 2021-05-20 14:04 | ED ---
Back Pain HPI - General Chief Complaint: Back Pain/Injury Stated Complaint: Back pain, [facility] Time Seen by Provider: 05/20/21 13:24 Source: patient, RN notes reviewed Limitations: no limitations - History of Present Illness Initial Comments: Patient is a 50-year-old male that presents to emergency room complaining of left lower back pain. He notes that he was at work when he was trying to move a bed when he felt some pain in his low back. He denied any saddle anesthesia bladder or bowel incontinence/retention. Patient was otherwise a well-appearing 50-year-old male in no apparent distress. He denied any chest pain shortness of breath headache nausea vomiting diarrhea constipation fever fatigue chills. - Related Data Home Medications Medication Instructions Recorded Confirmed Omeprazole 20 mg PO BID 04/29/14 05/01/21 Simvastatin 40 mg PO HS 03/10/16 05/01/21 cloNIDine HCL [Catapres] 0.2 mg PO TID 03/10/16 05/01/21 Aspirin 81 mg PO DAILY 03/23/16 05/01/21 ALPRAZolam [Xanax] 0.5 mg PO TID PRN 03/23/18 05/01/21 Diltiazem HCl [Diltiazem HCl 24Hr 300 mg PO DAILY 06/30/18 05/01/21 ER ([facility])] Metoprolol Succinate [Toprol XL] 200 mg PO DAILY 06/30/18 05/01/21 Doxepin [SINEquan] 10 mg PO BID 04/30/21 05/01/21 Metoclopramide [Reglan] 10 mg PO TID PRN 04/30/21 05/01/21 PARoxetine HCL [Paxil] 20 mg PO DAILY 04/30/21 05/01/21 QUEtiapine [SEROquel] 50 mg PO HS 04/30/21 05/01/21 QUEtiapine [SEROquel] 400 mg PO HS 04/30/21 05/01/21 Sildenafil Citrate 50 mg PO DAILY 04/30/21 05/01/21 oxyCODONE-APAP 10-325MG [Percocet 1 tab PO TID PRN 04/30/21 05/01/21 10-325 mg] tiZANidine HCL 4 mg PO DAILY 04/30/21 05/01/21 Previous Rx's Medication Instructions Recorded Ipratropium/Albuterol Sulfate 2 puff INHALATION QID #1 inhaler 07/02/18 [Combivent Respimat Inhaler] Cyclobenzaprine HCl 10 mg PO TID 10 Days #30 tab 05/20/21 Allergies Allergy/AdvReac Type Severity Reaction Status Date / Time No Known Allergies Allergy Verified 05/01/21 22:10 Review of Systems ROS Statement: Those systems with pertinent positive or pertinent negative responses have been documented in the HPI. ROS Other: All systems not noted in ROS Statement are negative. Past Medical History Past Medical History: GERD/Reflux, Hyperlipidemia, Hypertension Additional Past Medical History / Comment(s): Hx of pancreatitis. TONGUE LESION History of Any Multi-Drug Resistant Organisms: None Reported Past Surgical History: Cholecystectomy, Hernia Repair Additional Past Surgical History / Comment(s): SX ON NOSE TEEN FOR FX NOSE. COLONOSCOPY/EGD Past Anesthesia/Blood Transfusion Reactions: No Reported Reaction Past Psychological History: Anxiety, Bipolar, Depression Smoking Status: Current every day smoker Past Alcohol Use History: Abuse, Daily Past Drug Use History: None Reported - Past Family History Mother Family Medical History: No Reported History Father Family Medical History: Pneumonia General Exam Limitations: no limitations General appearance: alert, in no apparent distress, obese Head exam: Present: atraumatic, normocephalic, normal inspection Eye exam: Present: normal appearance, PERRL, EOMI. Absent: scleral icterus, conjunctival injection, periorbital swelling ENT exam: Present: normal exam, mucous membranes moist Neck exam: Present: normal inspection Respiratory exam: Present: normal lung sounds bilaterally. Absent: respiratory distress, wheezes, rales, rhonchi, stridor Cardiovascular Exam: Present: regular rate, normal rhythm, normal heart sounds. Absent: systolic murmur, diastolic murmur, rubs, gallop, clicks Extremities exam: Present: normal inspection, full ROM, normal capillary refill. Absent: tenderness, pedal edema, joint swelling, calf tenderness Back exam: Present: normal inspection, tenderness (Left SI), paraspinal tende rness (Lower back) Neurological exam: Present: alert, oriented X3 Psychiatric exam: Present: normal affect, normal mood Skin exam: Present: warm, dry, intact, normal color. Absent: rash Course Vital Signs 05/20/21 13:21 Temperature 98.4 F Pulse Rate 77 Respiratory 19 Rate Blood Pressure 142/90 O2 Sat by Pulse 97 Oximetry Medical Decision Making - Medical Decision Making 50-year-old male complaining of low back pain after bending over and trying to move a bed. X-ray lumbar spine, 125 mg Solu-Medrol, 2 mg of morphine ordered. X-ray negative for any acute process. Patient most likely has a lumbar strain. case discussed with Dr. Brian, patient discharge home with follow-up primary care. - Radiology Data Radiology results: report reviewed, image reviewed Lumbar spine x-ray: No acute fracture dislocation seen lumbar spine. Disposition Clinical Impression: Strain of lumbar region Disposition: HOME SELF-CARE Condition: Stable Instructions (If sedation given, give patient instructions): Acute Low Back Pain (ED) Additional Instructions: Please return to the Emergency Department if symptoms worsen or any other concerns. Follow-up primary care 1-2 days. Take muscle relaxers as prescribed. Prescriptions: Cyclobenzaprine HCl 10 mg PO TID 10 Days #30 tab Is patient prescribed a controlled substance at d/c from ED?: No Referrals: Jabari Sorto MD [Primary Care Provider] - 1-2 days Time of Disposition: 14:23
--- NOTE | 2021-05-20 14:17 | XR ---
EXAMINATION TYPE: XR lumbar spine 2 or 3V DATE OF EXAM: 05/20/2021 CLINICAL HISTORY: pain TECHNIQUE: Three views of the lumbar spine are submitted. COMPARISON: None. FINDINGS: There are 5 lumbar type vertebral bodies identified. The lumbar spine shows satisfactory alignment w ithout evidence of acute fracture or dislocation. Vertebral body heights are within normal limits. Degenerative changes noted. The overlying soft tissue appears unremarkable. IMPRESSION: No acute fracture or dislocation is seen in the lumbar spine. ICD 10 NO FRACTURE, INITIAL EVALUATION
[2021-05-20] MEDS ORDERED: ACET/COD 300 MG/30 MG STARTER PACK 6 TAB BTL PO STA (14:22)
[2021-05-20 14:46] VITALS: BP 140/85; PULSE 82; RESP 16; TEMP 98.1
== END 2021-05-20 14:35 | disposition home or self-care (01) ==
LOC: EC 13:03
DX: S39.012A Strain of muscle, fascia and tendon of lower back, initial encounter (principal); E66.9 Obesity, unspecified; I10 Essential (primary) hypertension; E78.5 Hyperlipidemia, unspecified; K21.9 Gastro-esophageal reflux disease without esophagitis; F31.9 Bipolar disorder, unspecified; F41.9 Anxiety disorder, unspecified; F17.200 Nicotine dependence, unspecified, uncomplicated; Z79.82 Long term (current) use of aspirin; Z79.899 Other long term (current) drug therapy; Z68.32 Body mass index [BMI] 32.0-32.9, adult; X50.1XXA Overexertion from prolonged static or awkward postures, initial encounter
CPT/HCPCS: 96372 ×3; 99283 ×2; 72100; J2930; J2270

== ENCOUNTER → 2021-05-29 | Outpatient (CLI) | payer OTHER ==
--- NOTE | 2021-05-30 04:21 | MR ---
EXAMINATION TYPE: MR lumbar spine wo con DATE OF EXAM: 05/29/2021 COMPARISON: None HISTORY: Lower back pain from lifting Multiplanar multiecho imaging of the lumbar spine without contrast. Lumbar vertebra have normal alignment. Disc spaces are fairly normal. There is no compression fractur e. There is small posterior disc bulging at L4-5 and L5-S1. There is developmentally adequate spinal canal. There is no spinal stenosis. There is no lumbar paraspinal mass. Sacroiliac joints are intact. Facet joints are intact. The lumbar neural foramina are fairly well-maintained. There is no evidence of focal bone destruction. IMPRESSION: Mild posterior disc bulging at L4-5 and L5-S1. No spinal stenosis. No fracture.
== END | disposition home or self-care (01) ==
LOC: RADMRIMAIN 19:18
PROVIDERS: ATTEND Emergency Medicine
DX: M51.27 Other intervertebral disc displacement, lumbosacral region (principal); S39.012D Strain of muscle, fascia and tendon of lower back, subsequent encounter
CPT/HCPCS: 72148

== ENCOUNTER 2021-09-22 11:51 | Emergency (ER) | payer MEDICAID, OTHER ==
[2021-09-22 12:12] VITALS: TEMP 98.2
[2021-09-22] MEDS ORDERED: LORazepam 2 MG/ML INJ IV STA (12:19)
--- NOTE | 2021-09-22 12:22 | ED ---
Arrhythmia/Palpitations HPI - General Chief Complaint: Arrhythmia/Palpitations Stated Complaint: heart palpitations Time Seen by Provider: 09/22/21 12:02 Source: patient, EMS Mode of arrival: EMS Limitations: no limitations - History of Present Illness Initial Comments: Patient is a 51-year-old male with history of alcohol use disorder who presents to the emergency department with a chief complaint of heart palpitations. Patient reports that the palpitations started at 1 AM last night. He was unable to sleep due to the intermittent palpitations. Patient states that he has experienced these symptoms before and sees Dr. Christie for them. He denies chest pain and shortness of breath. Patient denies fever, chills,, cough, abdominal pain, nausea, vomiting, diarrhea, constipation, and dysuria. Patient states he has drank one beer a night for the past 2 weeks. He denies current drug use. - Related Data Home Medications Medication Instructions Recorded Confirmed Simvastatin 40 mg PO HS 03/10/16 09/22/21 cloNIDine HCL [Catapres] 0.2 mg PO TID 03/10/16 09/22/21 Diltiazem HCl [Diltiazem HCl 24Hr 300 mg PO DAILY 06/30/18 09/22/21 ER ([facility])] Metoprolol Succinate [Toprol XL] 200 mg PO DAILY 06/30/18 09/22/21 Doxepin [SINEquan] 10 mg PO BID 04/30/21 09/22/21 Metoclopramide [Reglan] 10 mg PO BID 04/30/21 09/22/21 Sildenafil Citrate 50 mg PO DAILY PRN 04/30/21 09/22/21 tiZANidine HCL 4 mg PO DAILY 04/30/21 09/22/21 ALPRAZolam [Xanax] 1 mg PO BID 09/22/21 09/22/21 HYDROcodone/APAP 7.5-325MG [[place] 1 tab PO TID PRN 09/22/21 09/22/21 7.5-325] Omeprazole 40 mg PO BID 09/22/21 09/22/21 QUEtiapine FUMARATE [SEROquel] 300 mg PO HS 09/22/21 09/22/21 QUEtiapine XR [SEROquel XR] 150 mg PO HS 09/22/21 09/22/21 Allergies Allergy/AdvReac Type Severity Reaction Status Date / Time No Known Allergies Allergy Verified 09/22/21 13:05 Review of Systems ROS Statement: Those systems with pertinent positive or pertinent negative responses have been documented in the HPI. ROS Other: All systems not noted in ROS Statement are negative. Past Medical History Past Medical History: GERD/Reflux, Hyperlipidemia, Hypertension Additional Past Medical History / Comment(s): Hx of pancreatitis. TONGUE LESION History of Any Multi-Drug Resistant Organisms: None Reported Past Surgical History: Cholecystectomy, Hernia Repair Additional Past Surgical History / Comment(s): SX ON NOSE TEEN FOR FX NOSE. COLONOSCOPY/EGD Past Anesthesia/Blood Transfusion Reactions: No Reported Reaction Past Psychological History: Anxiety, Bipolar, Depression Smoking Status: Current every day smoker Past Alcohol Use History: Abuse, Daily Past Drug Use History: None Reported - Past Family History Mother Family Medical History: No Reported History Father Family Medical History: Pneumonia General Exam Limitations: no limitations General appearance: alert, in no apparent distress Head exam: Present: atraumatic, normocephalic, normal inspection Eye exam: Present: normal appearance, PERRL, EOMI. Absent: scleral icterus, conjunctival injection, periorbital swelling ENT exam: Present: other (Tongue fasciculations present) Respiratory exam: Present: normal lung sounds bilaterally. Absent: respiratory distress, wheezes, rales, rhonchi, stridor Cardiovascular Exam: Present: regular rate, normal rhythm, normal heart sounds. Absent: systolic murmur, diastolic murmur, rubs, gallop, clicks GI/Abdominal exam: Present: soft, normal bowel sounds. Absent: distended, tenderness, guarding, rebound, rigid Neurological exam: Present: alert, oriented X3, CN II-XII intact Psychiatric exam: Present: normal affect, normal mood Skin exam: Present: warm, dry, intact, normal color. Absent: rash Course Vital Signs 09/22/21 09/22/21 12:04 12:48 Temperature 98.2 F Pulse Rate 80 83 Respiratory 22 18 Rate Blood Pressure 126/95 122/86 O2 Sat by Pulse 93 L 94 L Oximetry EKG Findings - EKG Comments: EKG Findings:: EKG taken at 12:00. Sinus rhythm, left axis deviation, possible right ventricular conduction delay, minimal voltage criteria for LVH, consider normal. Ventricular rate 86. NV interval 183. QRS duration 98. QTC 421 Medical Decision Making - Medical Decision Making This is a 51-year-old male who presents with heart palpitations. Thorough history and examination were performed. On physical exam I did observe fasciculations of the tongue. EKG reveals sinus rhythm with left axis deviation and possible right ventricular conduction delay. CBC and CMP are unremarkable. Troponin is negative x 1. Chest x-ray reveals probable atelectasis or scarring in the left midlung. CIWA protocol is followed. Patient given Ativan for anxiety. Alcohol level was ordered. On reevaluation patient reports he is feeling better and would like to go home. Clinically, patient is sober. Risks and benefits were discussed. He verbalizes understanding and is agreeable to strict return parameters. Patient instructed to the follow-up with Dr. Christie for further evaluation of heart palpitations. Dr. Florez is my attending. - Lab Data Result diagrams: 09/22/21 12:34 09/22/21 12:34 Lab Results 09/22/21 09/22/21 09/22/21 Range/Units 12:34 12:34 12:34 WBC 7.6 (3.8-10.6) k/uL RBC 5.11 (4.30-5.90) m/uL Hgb 15.8 (13.0-17.5) gm/dL Hct 45.0 (39.0-53.0) % MCV 88.1 (80.0-100.0) fL MCH 30.9 (25.0-35.0) pg MCHC 35.1 (31.0-37.0) g/dL RDW 13.3 (11.5-15.5) % Plt Count 220 (150-450) k/uL MPV 9.6 Neutrophils % 57 % Lymphocytes % 30 % Monocytes % 7 % Eosinophils % 2 % Basophils % 1 % Neutrophils # 4.3 (1.3-7.7) k/uL Lymphocytes # 2.3 (1.0-4.8) k/uL Monocytes # 0.5 (0-1.0) k/uL Eosinophils # 0.2 (0-0.7) k/uL Basophils # 0.1 (0-0.2) k/uL PT 11.0 (9.0-12.0) sec INR 1.0 (<1.2) APTT 22.9 (22.0-30.0) sec Sodium 136 L (137-145) mmol/L Potassium 4.5 (3.5-5.1) mmol/L Chloride 100 (98-107) mmol/L Carbon Dioxide 22 (22-30) mmol/L Anion Gap 14 mmol/L BUN 9 (9-20) mg/dL Creatinine 0.88 (0.66-1.25) mg/dL Est GFR (CKD-EPI)AfAm >90 (>60 ml/min/1.73 sqM) Est GFR (CKD-EPI)NonAf >90 (>60 ml/min/1.73 sqM) Glucose 104 H (74-99) mg/dL Calcium 9.0 (8.4-10.2) mg/dL Magnesium 2.0 (1.6-2.3) mg/dL Total Bilirubin 0.8 (0.2-1.3) mg/dL AST 83 H (17-59) U/L ALT 51 H (4-49) U/L Alkaline Phosphatase 91 (38-126) U/L Troponin I (0.000-0.034) ng/mL Total Protein 7.7 (6.3-8.2) g/dL Albumin 4.6 (3.5-5.0) g/dL 09/22/21 Range/Units 12:34 WBC (3.8-10.6) k/uL RBC (4.30-5.90) m/uL Hgb (13.0-17.5) gm/dL Hct (39.0-53.0) % MCV (80.0-100.0) fL MCH (25.0-35.0) pg MCHC (31.0-37.0) g/dL RDW (11.5-15.5) % Plt Count (150-450) k/uL MPV Neutrophils % % Lymphocytes % % Monocytes % % Eosinophils % % Basophils % % Neutrophils # (1.3-7.7) k/uL Lymphocytes # (1.0-4.8) k/uL Monocytes # (0-1.0) k/uL Eosinophils # (0-0.7) k/uL Basophils # (0-0.2) k/uL PT (9.0-12.0) sec INR (<1.2) APTT (22.0-30.0) sec Sodium (137-145) mmol/L Potassium (3.5-5.1) mmol/L Chloride (98-107) mmol/L Carbon Dioxide (22-30) mmol/L Anion Gap mmol/L BUN (9-20) mg/dL Creatinine (0.66-1.25) mg/dL Est GFR (CKD-EPI)AfAm (>60 ml/min/1.73 sqM) Est GFR (CKD-EPI)NonAf (>60 ml/min/1.73 sqM) Glucose (74-99) mg/dL Calcium (8.4-10.2) mg/dL Magnesium (1.6-2.3) mg/dL Total Bilirubin (0.2-1.3) mg/dL AST (17-59) U/L ALT (4-49) U/L Alkaline Phosphatase (38-126) U/L Troponin I <0.012 (0.000-0.034) ng/mL Total Protein (6.3-8.2) g/dL Albumin (3.5-5.0) g/dL Disposition Clinical Impression: Palpitations Disposition: HOME SELF-CARE Condition: Good Instructions (If sedation given, give patient instructions): Heart Palpitations (ED) Additional Instructions: Follow-up with Dr. Christie in 1-2 days for further evaluation of heart palpitations. Return to the ER if you experience new, concerning, or worsening symptoms Is patient prescribed a controlled substance at d/c from ED?: No Referrals: Jabari Sorto MD [Primary Care Provider] - 1-2 days Time of Disposition: 14:25
[2021-09-22 12:49] VITALS: BP 122/86; RESP 18
[2021-09-22 13:03] LABS: ALT 51 U/L (4-49); AST 83 U/L (17-59); African American GFR (CKD) >90 (>60 ml/min/1.73 sqM); Albumin 4.6 g/dL (3.5-5.0); Alkaline Phosphatase 91 U/L (38-126); Anion Gap 14 mmol/L; Blood Urea Nitrogen 9 mg/dL (9-20); Carbon Dioxide 22 mmol/L (22-30); Chloride 100 mmol/L (98-107); Glucose 104 mg/dL (74-99); Non-African American GFR(CKD) >90 (>60 ml/min/1.73 sqM); Potassium 4.5 mmol/L (3.5-5.1); Sodium 136 mmol/L (137-145); Total Bilirubin 0.8 mg/dL (0.2-1.3); Total Protein 7.7 g/dL (6.3-8.2)
[2021-09-22 13:05] LABS: Partial Thromboplastin Time 22.9 sec (22.0-30.0)
[2021-09-22 13:15] LABS: Basophils # (A) 0.1 k/uL (0-0.2); Basophils % (A) 1 %; Eosinophils # (A) 0.2 k/uL (0-0.7); Eosinophils % (A) 2 %; HGB 15.8 gm/dL (13.0-17.5); Lymphocytes # (A) 2.3 k/uL (1.0-4.8); Lymphocytes % (A) 30 %; MCH 30.9 pg (25.0-35.0); MCHC 35.1 g/dL (31.0-37.0); MCV 88.1 fL (80.0-100.0); Mean Platelet Volume 9.6; Monocytes # (A) 0.5 k/uL (0-1.0); Monocytes % (A) 7 %; Neutrophils # (A) 4.3 k/uL (1.3-7.7); Neutrophils % (A) 57 %; Platelet Count 220 k/uL (150-450); RBC 5.11 m/uL (4.30-5.90); RDW 13.3 % (11.5-15.5); WBC 7.6 k/uL (3.8-10.6)
--- NOTE | 2021-09-22 13:19 | XR ---
EXAMINATION TYPE: XR chest 2V DATE OF EXAM: 09/22/2021 COMPARISON: Chest x-ray dated 04/17/2020 HISTORY: Dysrhythmia, chest pain TECHNIQUE: Frontal and lateral views of the chest are obtained. FINDINGS: Patient is rotated. There are overlying leads. Bandlike area of increased attenuation the left midlung may reflect atelectasis or scarring. There is no focal air space opacity, pleural effusi on, or pneumothorax seen. The cardiac silhouette size is within normal limits. The osseous structu res are intact. IMPRESSION: Probable atelectasis or scarring in the left midlung.
[2021-09-22 14:42] VITALS: PULSE 82
== END 2021-09-22 14:42 | disposition home or self-care (01) ==
LOC: EC 11:51
DX: R00.2 Palpitations (principal); I10 Essential (primary) hypertension; E78.5 Hyperlipidemia, unspecified; K21.9 Gastro-esophageal reflux disease without esophagitis; F31.9 Bipolar disorder, unspecified; F41.9 Anxiety disorder, unspecified; F17.200 Nicotine dependence, unspecified, uncomplicated; Z79.899 Other long term (current) drug therapy
CPT/HCPCS: 36415; 93005; 80053; 83735; 84484; 85025; 85610; 85730; 71046; 99285; 96374; J2060

== ENCOUNTER 2021-09-25 14:17 | Inpatient (IN) | payer MEDICAID ==
[2021-09-25] MEDS ORDERED: SODIUM CHLORIDE 0.9% 1,000 ML with MVI, ADULT NO.4 WITH VIT K 10 ML, THIAMINE 100 MG, F... IV ONE ×4 (15:02)
[2021-09-25] MEDS ORDERED: PANTOPRAZOLE 40 MG TABLET PO STA (15:06)
[2021-09-25 15:37] LABS: Appearance,Urine Clear (Clear); Bilirubin,Urine Negative (Negative); Blood,Urine Moderate (Negative); Color,Urine Yellow; Glucose,Urine (UA) Negative (Negative); Granular Casts,Urine 5 /lpf (0); Ketones,Urine 2+ (Negative); Leukocyte Esterase,Urine Negative (Negative); Mucus,Urine Rare /hpf; Nitrite,Urine Negative (Negative); Protein,Urine 2+ (Negative); Specific Gravity,Urine 1.014 (1.001-1.035); Squamous Epithelial Cell,Urine <1 /hpf (0-4); Urobilinogen,Urine <2.0 mg/dL (<2.0); WBC,Urine 1 /hpf (0-5)
[2021-09-25 15:51] LABS: Basophils # (A) 0.1 k/uL (0-0.2); Basophils % (A) 1 %; Eosinophils # (A) 0.1 k/uL (0-0.7); Eosinophils % (A) 1 %; HCT 48.4 % (39.0-53.0); Lymphocytes # (A) 1.7 k/uL (1.0-4.8); Lymphocytes % (A) 18 %; MCH 31.1 pg (25.0-35.0); MCHC 35.2 g/dL (31.0-37.0); MCV 88.4 fL (80.0-100.0); Mean Platelet Volume 9.5; Monocytes # (A) 0.4 k/uL (0-1.0); Monocytes % (A) 5 %; Neutrophils % (A) 74 %; Platelet Count 251 k/uL (150-450); RBC 5.48 m/uL (4.30-5.90); RDW 12.7 % (11.5-15.5); WBC 9.5 k/uL (3.8-10.6)
--- NOTE | 2021-09-25 15:52 | ED ---
General Adult HPI - General Chief complaint: Alcohol Stated complaint: ETOH Time Seen by Provider: 09/25/21 14:33 Source: patient, EMS Mode of arrival: EMS Limitations: altered mental status - History of Present Illness Initial comments: This 61-year-old male with past medical history of alcohol use disorder, hypertension, hyperlipidemia presents emergency Department with alcohol withdrawal requesting assistance in becoming sober and prevention of alcohol withdrawal seizures. Patient states he was clean for 10 years up until a couple months ago when he began drinking again. Patient states he drinks one fifth of vodka daily. Patient states she was supposed to go to rehab last week, however he states he pushed it off and didn't go in. Patient states he is feeling shaky and feels increasingly anxious. Patient states he does feel little bit short of breath due to his anxiety. Patient states his last drink was this morning when he had a couple shots of vodka. Patient states he also has a little bit of abdominal discomfort and nausea. Patient denies any chest pain, abdominal pain, vomiting, change of bowel or bladder, change in vision, headache, lightheadedness, dizziness, falls or convulsions. Patient states she was here a few days ago for her palpitations, however he states those have resolved and he is not experiencing any chest pain or heart palpitations. Patient denies any visual disturbances, auditory disturbances, tactile disturbances or seizures here or at home. - Related Data Home Medications Medication Instructions Recorded Confirmed Simvastatin 40 mg PO HS 03/10/16 09/25/21 cloNIDine HCL [Catapres] 0.2 mg PO TID 03/10/16 09/25/21 Metoprolol Succinate [Toprol XL] 200 mg PO DAILY 06/30/18 09/25/21 Doxepin [SINEquan] 10 mg PO BID 04/30/21 09/25/21 Metoclopramide [Reglan] 10 mg PO BID 04/30/21 09/25/21 Sildenafil Citrate 50 mg PO DAILY PRN 04/30/21 09/25/21 tiZANidine HCL 4 mg PO DAILY 04/30/21 09/25/21 ALPRAZolam [Xanax] 1 mg PO BID 09/22/21 09/25/21 HYDROcodone/APAP 7.5-325MG [[place] 1 tab PO TID 02/22/22 02/25/22 7.5-325] Omeprazole 40 mg PO BID 09/22/21 09/25/21 QUEtiapine FUMARATE [SEROquel] 300 mg PO HS 09/22/21 09/25/21 QUEtiapine XR [SEROquel XR] 150 mg PO HS 09/22/21 09/25/21 Diltiazem Cd [Cardizem CD] 300 mg PO DAILY 09/25/21 09/25/21 Allergies Allergy/AdvReac Type Severity Reaction Status Date / Time No Known Allergies Allergy Verified 09/25/21 17:41 Review of Systems ROS Statement: Those systems with pertinent positive or pertinent negative responses have been documented in the HPI. ROS Other: All systems not noted in ROS Statement are negative. Past Medical History Past Medical History: GERD/Reflux, Hyperlipidemia, Hypertension Additional Past Medical History / Comment(s): Hx of pancreatitis. TONGUE LESION History of Any Multi-Drug Resistant Organisms: None Reported Past Surgical History: Cholecystectomy, Hernia Repair Additional Past Surgical History / Comment(s): SX ON NOSE TEEN FOR FX NOSE. COLONOSCOPY/EGD Past Anesthesia/Blood Transfusion Reactions: No Reported Reaction Past Psychological History: Anxiety, Bipolar, Depression Smoking Status: Current every day smoker Past Alcohol Use History: Abuse, Daily Past Drug Use History: None Reported - Past Family History Mother Family Medical History: No Reported History Father Family Medical History: Pneumonia General Exam Limitations: altered mental status General appearance: alert, anxious, other (Diaphoretic) Head exam: Present: atraumatic, normocephalic Eye exam: Present: normal appearance, PERRL, EOMI Pupils: Present: normal accommodation ENT exam: Present: mucous membranes moist Neck exam: Present: full ROM. Absent: tenderness, meningismus, lymphadenopathy, thyromegaly Respiratory exam: Present: normal lung sounds bilaterally. Absent: respiratory distress, wheezes, rales, rhonchi, stridor Cardiovascular Exam: Present: regular rate, normal rhythm, normal heart sounds. Absent: systolic murmur, diastolic murmur, rubs, gallop, clicks GI/Abdominal exam: Present: soft, normal bowel sounds. Absent: distended, tenderness, guarding, rebound, rigid Extremities exam: Present: full ROM Back exam: Present: normal inspection. Absent: CVA tenderness (R), CVA tenderness (L), paraspinal tenderness, vertebral tenderness Neurological exam: Present: alert, oriented X3, CN II-XII intact, normal gait. Absent: motor sensory deficit Psychiatric exam: Present: normal affect, normal mood Skin exam: Present: warm, dry, intact, normal color. Absent: rash Course Vital Signs 09/25/21 09/25/21 09/25/21 14:19 14:31 17:59 Temperature 98.3 F Pulse Rate 100 106 H Respiratory 16 20 16 Rate Blood Pressure 202/95 123/88 O2 Sat by Pulse 94 L 96 Oximetry EKG Findings - EKG Comments: EKG Findings:: EKG: Poor study with artifact. Ventricular rate 108 bpm. WV interval 198. QRS duration 93. QT/QTc 147/411. Nonspecific ST changes Medical Decision Making - Medical Decision Making This 51-year-old male presents emergency Department with alcohol withdrawal. CIWA Score was 14 on initial assessment, patient placed on CIWA protocol. Hematology unremarkable, coagulations unremarkable, chemistry with elevated javed er enzymes, toxicology with antidepressants noted, serum alcohol 208, urine with protein and ketones. EKG with nonspecific ST and T-wave abnormalities. Troponin negative. Patient admitted to the hospital for prevention of alcohol withdrawal seizure and delirium tremens. I did speak to who agreed to admit patient to his services. Patient agreed to plan for admission and further workup, evaluation and treatment. Discussed this case with my attending, . - Lab Data Result diagrams: 09/25/21 15:25 09/25/21 15:25 Lab Results 09/25/21 09/25/21 09/25/21 Range/Units 15:24 15:25 15:25 WBC 9.5 (3.8-10.6) k/uL RBC 5.48 (4.30-5.90) m/uL Hgb 17.0 (13.0-17.5) gm/dL Hct 48.4 (39.0-53.0) % MCV 88.4 (80.0-100.0) fL MCH 31.1 (25.0-35.0) pg MCHC 35.2 (31.0-37.0) g/dL RDW 12.7 (11.5-15.5) % Plt Count 251 (150-450) k/uL MPV 9.5 Neutrophils % 74 % Lymphocytes % 18 % Monocytes % 5 % Eosinophils % 1 % Basophils % 1 % Neutrophils # 7.0 (1.3-7.7) k/uL Lymphocytes # 1.7 (1.0-4.8) k/uL Monocytes # 0.4 (0-1.0) k/uL Eosinophils # 0.1 (0-0.7) k/uL Basophils # 0.1 (0-0.2) k/uL PT 11.4 (9.0-12.0) sec INR 1.1 (<1.2) Sodium (137-145) mmol/L Potassium (3.5-5.1) mmol/L Chloride (98-107) mmol/L Carbon Dioxide (22-30) mmol/L Anion Gap mmol/L BUN (9-20) mg/dL Creatinine (0.66-1.25) mg/dL Est GFR (CKD-EPI)AfAm (>60 ml/min/1.73 sqM) Est GFR (CKD-EPI)NonAf (>60 ml/min/1.73 sqM) Glucose (74-99) mg/dL POC Glucose (mg/dL) (75-99) mg/dL POC Glu Investment Fund Manager ID Calcium (8.4-10.2) mg/dL Phosphorus (2.5-4.5) mg/dL Magnesium (1.6-2.3) mg/dL Total Bilirubin (0.2-1.3) mg/dL GGT (15-73) U/L AST (17-59) U/L ALT (4-49) U/L Alkaline Phosphatase (38-126) U/L Troponin I (0.000-0.034) ng/mL Total Protein (6.3-8.2) g/dL Albumin (3.5-5.0) g/dL Lipase (23-300) U/L Urine Color Yellow Urine Appearance Clear (Clear) Urine pH 6.0 (5.0-8.0) Ur Specific [place] 1.014 (1.001-1.035) Urine Protein 2+ H (Negative) Urine Glucose (UA) Negative (Negative) Urine Ketones 2+ H (Negative) Urine Blood Moderate H (Negative) Urine Nitrite Negative (Negative) Urine Bilirubin Negative (Negative) Urine Urobilinogen <2.0 (<2.0) mg/dL Ur Leukocyte Esterase Negative (Negative) Urine WBC 1 (0-5) /hpf Ur Squamous Epith Cells <1 (0-4) /hpf Granular Casts 5 (0) /lpf Urine Mucus Rare H (None) /hpf Urine Opiates Screen Not Detected (NotDetected) Ur Oxycodone Screen Not Detected (NotDetected) Urine Methadone Screen Not Detected (NotDetected) Ur Propoxyphene Screen Not Detected (NotDetected) Ur Barbiturates Screen Not Detected (NotDetected) U Tricyclic Antidepress Detected H (NotDetected) Ur Phencyclidine Scrn Not Detected (NotDetected) Ur Amphetamines Screen Not Detected (NotDetected) U Methamphetamines Scrn Not Detected (NotDetected) U Benzodiazepines Scrn Not Detected (NotDetected) Urine Cocaine Screen Not Detected (NotDetected) U Marijuana (THC) Screen Not Detected (NotDetected) Serum Alcohol mg/dL 09/25/21 09/25/21 09/25/21 Range/Units 15:25 15:25 16:04 WBC (3.8-10.6) k/uL RBC (4.30-5.90) m/uL Hgb (13.0-17.5) gm/dL Hct (39.0-53.0) % MCV (80.0-100.0) fL MCH (25.0-35.0) pg MCHC (31.0-37.0) g/dL RDW (11.5-15.5) % Plt Count (150-450) k/uL MPV Neutrophils % % Lymphocytes % % Monocytes % % Eosinophils % % Basophils % % Neutrophils # (1.3-7.7) k/uL Lymphocytes # (1.0-4.8) k/uL Monocytes # (0-1.0) k/uL Eosinophils # (0-0.7) k/uL Basophils # (0-0.2) k/uL PT (9.0-12.0) sec INR (<1.2) Sodium 139 (137-145) mmol/L Potassium 5.1 (3.5-5.1) mmol/L Chloride 99 (98-107) mmol/L Carbon Dioxide 14 L (22-30) mmol/L Anion Gap 26 mmol/L BUN 10 (9-20) mg/dL Creatinine 0.89 (0.66-1.25) mg/dL Est GFR (CKD-EPI)AfAm >90 (>60 ml/min/1.73 sqM) Est GFR (CKD-EPI)NonAf >90 (>60 ml/min/1.73 sqM) Glucose 93 (74-99) mg/dL POC Glucose (mg/dL) 88 (75-99) mg/dL POC Glu Investment Fund Manager ID [employer] Gonzales Calcium 9.2 (8.4-10.2) mg/dL Phosphorus 4.9 H (2.5-4.5) mg/dL Magnesium 2.0 (1.6-2.3) mg/dL Total Bilirubin 1.1 (0.2-1.3) mg/dL GGT 416 H (15-73) U/L AST 205 H (17-59) U/L ALT 98 H (4-49) U/L Alkaline Phosphatase 116 (38-126) U/L Troponin I 0.020 (0.000-0.034) ng/mL Total Protein 8.6 H (6.3-8.2) g/dL Albumin 5.4 H (3.5-5.0) g/dL Lipase 105 (23-300) U/L Urine Color Urine Appearance (Clear) Urine pH (5.0-8.0) Ur Specific [place] (1.001-1.035) Urine Protein (Negative) Urine Glucose (UA) (Negative) Urine Ketones (Negative) Urine Blood (Negative) Urine Nitrite (Negative) Urine Bilirubin (Negative) Urine Urobilinogen (<2.0) mg/dL Ur Leukocyte Esterase (Negative) Urine WBC (0-5) /hpf Ur Squamous Epith Cells (0-4) /hpf Granular Casts (0) /lpf Urine Mucus (None) /hpf Urine Opiates Screen (NotDetected) Ur Oxycodone Screen (NotDetected) Urine Methadone Screen (NotDetected) Ur Propoxyphene Screen (NotDetected) Ur Barbiturates Screen (NotDetected) U Tricyclic Antidepress (NotDetected) Ur Phencyclidine Scrn (NotDetected) Ur Amphetamines Screen (NotDetected) U Methamphetamines Scrn (NotDetected) U Benzodiazepines Scrn (NotDetected) Urine Cocaine Screen (NotDetected) U Marijuana (THC) Screen (NotDetected) Serum Alcohol 208 H* mg/dL Disposition Clinical Impression: Alcoholic intoxication, Alcohol withdrawal Disposition: ADMITTED IP TO THIS HOSP Condition: Serious Is patient prescribed a controlled substance at d/c from ED?: No Referrals: Jabari Sorto MD [Primary Care Provider] - 1-2 days
[2021-09-25 16:00] LABS: ALT 98 U/L (4-49); AST 205 U/L (17-59); African American GFR (CKD) >90 (>60 ml/min/1.73 sqM); Albumin 5.4 g/dL (3.5-5.0); Alkaline Phosphatase 116 U/L (38-126); Anion Gap 26 mmol/L; Blood Urea Nitrogen 10 mg/dL (9-20); Calcium 9.2 mg/dL (8.4-10.2); Carbon Dioxide 14 mmol/L (22-30); Chloride 99 mmol/L (98-107); GGT 416 U/L (15-73); Glucose 93 mg/dL (74-99); Lipase 105 U/L (23-300); Non-African American GFR(CKD) >90 (>60 ml/min/1.73 sqM); Phosphorus 4.9 mg/dL (2.5-4.5); Potassium 5.1 mmol/L (3.5-5.1); Sodium 139 mmol/L (137-145); Total Bilirubin 1.1 mg/dL (0.2-1.3); Total Protein 8.6 g/dL (6.3-8.2)
[2021-09-25] MEDS: LORazepam 2 MG/ML INJ IV PRN ×5 (16:00→23:02)
[2021-09-25 16:02] LABS: Alcohol 208 mg/dL
[2021-09-25 16:06] LABS: Glucose,Whole Blood 88 mg/dL (75-99)
[2021-09-25 16:13] LABS: Amphetamine Screen,Urine Not Detected (NotDetected); Barbiturate Screen,Urine Not Detected (NotDetected); Benzodiazepines Screen,Urine Not Detected (NotDetected); Cocaine Screen,Urine Not Detected (NotDetected); Methadone Screen, Urine Not Detected (NotDetected); Opiate Screen,Urine Not Detected (NotDetected); Oxycodone Screen, Urine Not Detected (NotDetected); Phencyclidine Screen,Urine Not Detected (NotDetected); Tricyclic Antidepressant,Urine Detected (NotDetected); Urn Cannabinoid Scrn Not Detected (NotDetected)
[2021-09-25 16:27] LABS: INR 1.1 (<1.2); Prothrombin Time 11.4 sec (9.0-12.0)
[2021-09-25] MEDS ORDERED: ONDANSETRON 4 MG/2 ML VIAL IVP STA (16:57)
--- NOTE | 2021-09-25 18:25 | XR ---
EXAMINATION TYPE: XR chest 2V DATE OF EXAM: 09/25/2021 COMPARISON: 09/22/2021 and 04/17/2020 HISTORY: 51 years Male. STUDY INDICATION GIVEN: sob . TECHNIQUE: Frontal and lateral chest radiographs. IMPRESSION: Scattered upper lobe lucencies suggestive of COPD/emphysema, no significant change since 04/17/2020. No focal airspace disease, pneumothorax or pleural effusion. Stable appearance of linear opacity in the left lower lobe which may be reflective of scarring given the lack of significant change since 04/17/2020. The cardiomediastinal silhouette is normal in appearance. No acute osseous abnormalities seen.
[2021-09-25] MEDS ORDERED: NALOXONE 0.4 MG/ML 1 ML VIAL IV PRN (18:38)
[2021-09-25] MEDS ORDERED: ONDANSETRON 4 MG/2 ML VIAL IVP PRN (18:38)
[2021-09-25] MEDS ORDERED: SODIUM CHLORIDE 0.9% 1,000 ML IV STA (18:45)
[2021-09-25] MEDS: DOXEPIN 10 MG CAP PO SCH (23:39)
[2021-09-25] MEDS: ATORVASTATIN 20 MG TAB PO SCH (23:39)
[2021-09-25] MEDS: HYDROcodone/APAP 7.5-325MG 1 EACH TAB PO SCH (23:39)
[2021-09-25] MEDS: NICOTINE 14MG/24HR PATCH TRANSDERM SCH (23:39)
[2021-09-25] MEDS: QUEtiapine 25 MG TAB PO SCH (23:39)
[2021-09-25] MEDS: PANTOPRAZOLE 40 MG TABLET PO SCH (23:39)
[2021-09-25] MEDS: QUEtiapine 100 MG TAB PO SCH (23:39)
[2021-09-25] MEDS: METOCLOPRAMIDE 10 MG TAB PO SCH (23:39)
[2021-09-25] MEDS: cloNIDine HCL 0.2 MG TAB PO SCH (23:39)
[2021-09-26] MEDS: LORazepam 2 MG/ML INJ IV PRN ×13 (00:55→23:42)
[2021-09-26] MEDS: METOPROLOL SUCCINATE (ER) 100 MG TAB.ER.24H PO SCH (05:24)
[2021-09-26 06:50] LABS: Glucose,Whole Blood 122 mg/dL (75-99)
[2021-09-26] MEDS: ALPRAZolam 1 MG TAB PO SCH ×2 (08:08→20:07)
[2021-09-26] MEDS: HYDROcodone/APAP 7.5-325MG 1 EACH TAB PO SCH ×3 (08:08→21:08)
[2021-09-26] MEDS: cloNIDine HCL 0.2 MG TAB PO SCH ×3 (08:09→21:08)
[2021-09-26] MEDS: NICOTINE 14MG/24HR PATCH TRANSDERM SCH (08:09)
[2021-09-26] MEDS: PANTOPRAZOLE 40 MG TABLET PO SCH (08:09)
[2021-09-26] MEDS: DILTIAZEM CD 300 MG CAP.ER.24H PO SCH (08:09)
[2021-09-26] MEDS: tiZANidine 4 MG TAB PO SCH (08:10)
[2021-09-26] MEDS: DOXEPIN 10 MG CAP PO SCH ×2 (08:10→21:09)
[2021-09-26] MEDS: METOCLOPRAMIDE 10 MG TAB PO SCH ×2 (08:10→21:09)
[2021-09-26] MEDS: QUEtiapine 25 MG TAB PO SCH ×2 (09:44→21:09)
[2021-09-26] MEDS: chlordiazePOXIDE 25 MG CAP PO SCH ×4 (11:39→21:28)
[2021-09-26 12:16] LABS: Glucose,Whole Blood 194 mg/dL (75-99)
[2021-09-26 16:27] LABS: Glucose,Whole Blood 167 mg/dL (75-99)
[2021-09-26] MEDS ORDERED: LORazepam 2 MG/ML INJ IV STA (18:08)
[2021-09-26] MEDS ORDERED: LORazepam 2 MG/ML INJ IV PRN (18:10)
[2021-09-26] MEDS: ATORVASTATIN 20 MG TAB PO SCH (21:09)
[2021-09-26] MEDS: QUEtiapine 100 MG TAB PO SCH (21:09)
--- NOTE | 2021-09-26 23:27 | HP ---
HISTORY AND PHYSICAL This is a 51-year-old white male with a history of alcohol use disorder, hypertension, dyslipidemia. He came to the ER with alcohol withdrawal syndrome. He started drinking 2 or 3 weeks ago, fifth of vodka a day. He is depressed. He has been out of work due to back pain, chronic back injuries. He comes into the hospital for abdominal pain, nausea and alcohol withdrawal syndrome. No chest pain, shortness of breath. Mild tremors in the ER. He is sitting up, giving appropriate answers. Home medications are reviewed. Labs reviewed. Family history reviewed. On physical examination, vital signs are stable. Afebrile. He appears anxious, nervous, sitting on edge of the bed. Alert and oriented x3. Psych fair mood and affect. Cardiovascular S1-S2. Lungs clear. Musculoskeletal: He is able to sit up in bed. Neurologic: Mild tremor. Blood pressure is 202 to 123 over 80 to 95. O2 is 94 to 96 . Temperature 98.3, pulse 100 to 106. EKG sinus rhythm. ASSESSMENT: Alcohol withdrawal syndrome, impending delirium tremens. [facility] protocol. Home medicines reviewed. Prognosis extremely guarded. Monitor electrolyte abnormalities. MMODL / IJN: [id number] /
--- NOTE | 2021-09-26 23:43 | PN ---
PROGRESS NOTE This 51-year-old white male has a mild to moderate amount of tremors. He is requiring large amounts of Ativan 1 mg up to 2 mg and Librium up to 100 q.i.d. Cardiovascular S1- S2. Lungs clear. Psych fair mood and affect. Neurologic: Mild tremors. ASSESSMENT: Alcohol withdrawal, impending delirium tremens. Almost signed out AMA x2 tonight. He is demanding to go home tomorrow; something about his mom being seriously ill. Continue with current treatment. Possible discharge tomorrow. MMODL / IJN: [id number] /
[2021-09-27] MEDS: LORazepam 2 MG/ML INJ IV PRN ×12 (00:37→14:40)
[2021-09-27 06:42] LABS: Glucose,Whole Blood 131 mg/dL (75-99)
[2021-09-27] MEDS: ALPRAZolam 1 MG TAB PO SCH ×2 (08:06→23:08)
[2021-09-27] MEDS: chlordiazePOXIDE 25 MG CAP PO SCH ×3 (08:06→18:21)
[2021-09-27] MEDS: PANTOPRAZOLE 40 MG TABLET PO SCH ×2 (08:06→18:21)
[2021-09-27] MEDS: HYDROcodone/APAP 7.5-325MG 1 EACH TAB PO SCH ×3 (08:06→23:12)
[2021-09-27] MEDS: QUEtiapine 25 MG TAB PO SCH ×2 (08:06→23:11)
[2021-09-27] MEDS: cloNIDine HCL 0.2 MG TAB PO SCH ×3 (08:06→23:13)
[2021-09-27] MEDS: NICOTINE 14MG/24HR PATCH TRANSDERM SCH (08:06)
[2021-09-27] MEDS: METOCLOPRAMIDE 10 MG TAB PO SCH ×2 (08:07→23:09)
[2021-09-27] MEDS: METOPROLOL SUCCINATE (ER) 100 MG TAB.ER.24H PO SCH (08:07)
[2021-09-27] MEDS: DILTIAZEM CD 300 MG CAP.ER.24H PO SCH (08:07)
[2021-09-27] MEDS: DOXEPIN 10 MG CAP PO SCH ×2 (08:07→23:09)
[2021-09-27] MEDS: tiZANidine 4 MG TAB PO SCH (08:08)
[2021-09-27 09:01] LABS: Basophils # (A) 0.07 X 10*3/uL (0.00-0.10); Basophils % (A) 0.8 %; Eosinophils % (A) 2.4 %; HCT 41.6 % (39.6-50.0); HGB 13.8 g/dL (13.0-17.0); Immature Grans, Automated 0.7 %; Lymphocytes # (A) 1.89 X 10*3/uL (0.90-5.00); Lymphocytes % (A) 22.3 %; MCH 29.5 pg (27.0-32.0); MCHC 33.2 g/dL (32.0-37.0); MCV 88.9 fL (80.0-97.0); Mean Platelet Volume 12.3 fL (9.5-12.2); Monocytes # (A) 0.66 X 10*3/uL (0.20-1.00); Monocytes % (A) 7.8 %; NRBC Per 100 WBC 0 /100 WBCS (0.0-0.0); Neutrophils # (A) 5.59 X 10*3/uL (1.80-7.70); Platelet Count 137 X 10*3/uL (140-440); RBC 4.68 X 10*6/uL (4.40-5.60); RDW 12.9 % (11.5-14.5); WBC 8.47 X 10*3/uL (4.50-10.00)
[2021-09-27 09:12] LABS: Albumin 4.3 g/dL (3.8-4.9); Albumin/Globulin Ratio 2.05 (1.60-3.17); BUN/Creat Ratio 6.63 Ratio (12.00-20.00); Blood Urea Nitrogen 5.3 mg/dL (9.0-27.0); Calcium 9.3 mg/dL (8.7-10.3); Globulin 2.1 g/dL (1.6-3.3); Non-African American GFR(CKD) 102.7 (60.0-200.0); Potassium 3.1 mmol/L (3.5-5.5); Total Bilirubin 0.7 mg/dL (0.30-1.20); Total Protein 6.4 g/dL (6.2-8.2)
--- NOTE | 2021-09-27 10:07 | P.CNNES ---
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 Neurology is consulted for alcohol withdrawal management. Per the patient he stated that the he has a history of fall or significant alcohol use and has been drinking heavily in the past 2 week. It seems that the patient has been sober for 10 years until the last couple months ago where he started drinking again. He drinks one fifth of vodka daily. Patient was supposed to go to rehab last week prior to present in the hospital but he has posted off and didn't go patient has been getting Ativan when necessary for alcohol withdrawal. No seizure-like activity noted. Patient denies of any focal weakness, numbness, any difficulty getting his words out, any visual disturbance. He states that he smokes about a pack a day for years. He denies any illicit drug use. He denies any history of seizures or strokes. Patient serum alcohol level is 28 on presentation and he has urine drug she was positive for tricyclic otherwise at your direction was negative. CBC with differential is unremarkable AST is 205 and ALT of 98. Sodium is 139, creatinine is 189, initial serum glucose is 93. Calcium is 9.2. Magnesium is 2.0. Review of Systems Review of system: The 12 point system was reviewed and apparent positive and negative per HPI. Past Medical History Past Medical History: GERD/Reflux, Hyperlipidemia, Hypertension Additional Past Medical History / Comment(s): Hx of pancreatitis. TONGUE LESION History of Any Multi-Drug Resistant Organisms: None Reported Past Surgical History: Cholecystectomy, Hernia Repair Additional Past Surgical History / Comment(s): SX ON NOSE TEEN FOR FX NOSE. COLONOSCOPY/EGD Past Anesthesia/Blood Transfusion Reactions: No Reported Reaction Past Psychological History: Anxiety, Bipolar, Depression Smoking Status: Current every day smoker Past Alcohol Use History: Abuse, Daily Additional Past Alcohol Use History / Comment(s): SMOKES 1 PPD SINCE AGE 11 Past Drug Use History: None Reported - Past Family History Mother Family Medical History: No Reported History Father Family Medical History: Pneumonia Medications and Allergies Home Medications Medication Instructions Recorded Confirmed Type Simvastatin 40 mg PO HS 03/10/16 09/25/21 History cloNIDine HCL [Catapres] 0.2 mg PO TID 03/10/16 09/25/21 History Metoprolol Succinate [Toprol XL] 200 mg PO DAILY 06/30/18 09/25/21 History Doxepin [SINEquan] 10 mg PO BID 04/30/21 09/25/21 History Metoclopramide [Reglan] 10 mg PO BID 04/30/21 09/25/21 History Sildenafil Citrate 50 mg PO DAILY PRN 04/30/21 09/25/21 History tiZANidine HCL 4 mg PO DAILY 04/30/21 09/25/21 History ALPRAZolam [Xanax] 1 mg PO BID 09/22/21 09/25/21 History HYDROcodone/APAP 7.5-325MG [[place] 1 tab PO TID 09/22/21 09/25/21 History 7.5-325] Omeprazole 40 mg PO BID 09/22/21 09/25/21 History QUEtiapine FUMARATE [SEROquel] 300 mg PO HS 09/22/21 09/25/21 History QUEtiapine XR [SEROquel XR] 150 mg PO HS 09/22/21 09/25/21 History Diltiazem Cd [Cardizem CD] 300 mg PO DAILY 09/25/21 09/25/21 History Allergies Allergy/AdvReac Type Severity Reaction Status Date / Time No Known Allergies Allergy Verified 09/25/21 17:41 Physical Examination - Vital Signs Vital Signs: Vital Signs Temp Pulse Resp BP Pulse Ox 09/27/21 06:55 97.8 F 123 H 125/97 96 09/27/21 00:45 97.8 F 112 H 18 141/99 93 L 09/26/21 20:00 98.3 F 87 16 155/98 94 L 09/26/21 19:00 87 09/26/21 13:45 97.6 F 98 152/100 94 L Intake and Output 09/26/21 09/27/21 09/27/21 22:59 06:59 14:59 Other: # Voids 3 3 GENERAL: The patient is lying in bed and is not in acute distress. CHEST: The heart rate is regular rate rhythm. No murmurs to auscultation. LUNG: Clear to auscultation bilaterally no wheezing noted throughout. Not labored breathing. ABDOMEN/GI: Bowel sounds present in all 4 quadrants. No tenderness to palpation throughout. NEUROLOGICAL: Higher mental function: The patient is awake, alert, oriented to self, place and time. Patient is following commands. No aphasia and no neglect. Cranial nerves: The pupils are round, equal and reactive to light and accommodation. Visual mendez are full to confrontation throughout. Extraocular movement is intact no nystagmus is noted. Facial sensation is normal to touch throughout. The facial strength is normal throughout. Hearing is normal bilate rally to hand rub. Tongue is midline and moved [id number] without any difficulty. No dysarthria is noted. Shoulder shrug is normal bilaterally. Motor: The strength is 5 over 5 throughout. Normal tone and bulk. No tremors noted. Cerebellum: Normal finger to nose bilaterally. Sensation: Sensation is normal to touch throughout. Reflexes (right/left): 2+ throughout. Plantars are downgoing bilaterally. Results - Laboratory Findings CBC and BMP: 09/27/21 04:04 09/27/21 04:04 Abnormal Lab Findings: Abnormal Labs 09/25/21 09/25/21 09/26/21 15:24 15:25 06:49 Plt Count MPV Immature Gran # Potassium Carbon Dioxide 14 L BUN BUN/Creatinine Ratio Glucose POC Glucose (mg/dL) 122 H Phosphorus 4.9 H GGT 416 H AST 205 H ALT 98 H Total Protein 8.6 H Albumin 5.4 H Urine Protein 2+ H Urine Ketones 2+ H Urine Blood Moderate H Urine Mucus Rare H U Tricyclic Antidepress Detected H Serum Alcohol 208 H* 09/26/21 09/26/21 09/27/21 12:14 16:26 04:04 Plt Count 137 L MPV 12.3 H Immature Gran # 0.06 H Potassium Carbon Dioxide BUN BUN/Creatinine Ratio Glucose POC Glucose (mg/dL) 194 H 167 H Phosphorus GGT AST ALT Total Protein Albumin Urine Protein Urine Ketones Urine Blood Urine Mucus U Tricyclic Antidepress Serum Alcohol 09/27/21 09/27/21 04:04 06:40 Plt Count MPV Immature Gran # Potassium 3.1 L Carbon Dioxide BUN 5.3 L BUN/Creatinine Ratio 6.63 L Glucose 129 H POC Glucose (mg/dL) 131 H Phosphorus GGT AST 214 H ALT 123 H Total Protein Albumin Urine Protein Urine Ketones Urine Blood Urine Mucus U Tricyclic Antidepress Serum Alcohol Assessment and Plan Assessment: Alcohol intoxication Possible alcohol withdrawal and is on Ativan PRN History of Hypertension and currently blood pressure has been in the range of systolic 120s to 150s diastolic has been in the range of 90s to 100 and due to alcohol withdrawal. Hyperlipidemia History of significant alcohol use in which she was sober for 10 years but relapsed in the last few months Tobacco use Plan: I start the patient on IV thiamine 100 mg daily for 3 days and then after that to be on by mouth. We'll defer alcohol withdrawal management to the primary team From a neurological perspective there is no further workup at this time since he does not have any focal deficits or seizures and it seems more alcohol withdrawal management. Recommend the patient to pursue with alcohol anonymous rehab or other rehab that would assist him on cessation of alcohol. There is no further neurological workup. Neurology will sign off. Please mireille nsult if needed. The plan was discussed with the patient and his nurse. Thank you for the consultation. Shawn Allison M.D. Neuro-hospitalist Time with Patient: Greater than 30
[2021-09-27] MEDS: THIAMINE 100 MG/ML 2 ML VIAL IVP SCH (10:57)
[2021-09-27 11:38] LABS: Glucose,Whole Blood 140 mg/dL (75-99)
[2021-09-27 12:19] LABS: Glucose,Whole Blood 170 mg/dL (75-99)
[2021-09-27] MEDS: DEXMEDETOMIDINE/0.9% NACL(PMX) 400 MCG in EMPTY BAG 1 BAG IV SCH ×3 (14:49→23:56)
[2021-09-27] MEDS ORDERED: NICOTINE GUM (POLACRILEX) 2 MG GUM BUCCAL PRN (15:01)
--- NOTE | 2021-09-27 16:07 | P.CNPUL ---
History of Present Illness Consult date: 09/27/21 Chief complaint: Altered mentation, delirium tremens History of present illness: 52-year-old male patient, alcoholism, also known to have hypertension and hyperlipidemia, came into the emergency department on 09/25/2021 for alcohol withdrawal symptoms. The patient had alcohol drinker and he has been apparently drinking heavily over the past 2 weeks. Note that his history of alcoholism has been on many years and the patient has remained sober for around 10 years until couple of months ago when he started drinking again and he has been drinking a fifth of vodka on a daily basis. He was supposed to go to rehabilitation last week and he end up in our hospital. Patient is currently getting Ativan and I was asked to present this patient intensive care unit knowing that his level of care was quite high and the patient has been difficult to observe and manage his behavior and tremor on the medical floor. No seasonal been noted. No focal neurological deficit. He is restless. At time agitated. Noted when he came to us to the hospital, his alcohol level was 28 and his urine toxin was positive for tricyclic. His liver function tests are showing an AST of 205, ALT of 98 and the electrodes are normal with a magnesium level of 2.0. Blood sugars of 93. CBC is essentially within normal limits. For now, the patient is receiving Librium 100 mg by mouth 4 times a day, clonidine 0.2 mg 3 times a day and the patient is also on doxepin 10 mg twice a day, Ativan per CINJ protocol, Seroquel 200 mg daily at bedtime and 75 mg twice a day. He is on thiamine. Review of Systems Constitutional: Reports as per HPI, Reports fatigue Eyes: denies as per HPI, denies blurred vision, denies bulging eye, denies decreased vision, denies diplopia, denies discharge, denies dry eye, denies irritation, denies itching, denies pain, denies photophobia, denies loss of peripheral vision, denies loss of vision, denies tunnel vision/blind spots Ears: deny: decreased hearing, ear discharge, earache, tinnitus Ears, nose, mouth and throat: Reports as per HPI Breasts: absent: as per HPI, gynecomastia Cardiovascular: Reports as per HPI Respiratory: Reports as per HPI Gastrointestinal: Reports as per HPI Genitourinary: Reports as per HPI Musculoskeletal: Reports as per HPI Musculoskeletal: absent: ankle pain, ankle stiffness, ankle swelling, as per HPI, elbow pain, elbow stiffness, elbow swelling, foot pain, foot stiffness, foot swelling, hand pain, hand stiffness, hand swelling, hip pain, hip stiffness, hip swelling, knee pain, knee stiffness, knee swelling, shoulder pain, shoulder stiffness, shoulder swelling, wrist pain, wrist stiffness, wrist swelling Integumentary: Reports as per HPI Neurological: Reports confusion Psychiatric: Reports anxiety, Reports confusion, Reports difficulty concentrating, Reports sleep disturbances Endocrine: Reports as per HPI Hematologic/Lymphatic: Reports as per HPI Allergic/Immunologic: Reports as per HPI Past Medical History Past Medical History: GERD/Reflux, Hyperlipidemia, Hypertension Additional Past Medical History / Comment(s): Hx of pancreatitis. TONGUE LESION History of Any Multi-Drug Resistant Organisms: None Reported Past Surgical History: Cholecystectomy, Hernia Repair Additional Past Surgical History / Comment(s): SX ON NOSE TEEN FOR FX NOSE. COLONOSCOPY/EGD Past Anesthesia/Blood Transfusion Reactions: No Reported Reaction Past Psychological History: Anxiety, Bipolar, Depression Smoking Status: Current every day smoker Past Alcohol Use History: Abuse, Daily Additional Past Alcohol Use History / Comment(s): SMOKES 1 PPD SINCE AGE 11 Past Drug Use History: None Reported - Past Family History Mother Family Medical History: No Reported History Father Family Medical History: Pneumonia Medications and Allergies Home Medications Medication Instructions Recorded Confirmed Type Simvastatin 40 mg PO HS 03/10/16 09/25/21 History cloNIDine HCL [Catapres] 0.2 mg PO TID 03/10/16 09/25/21 History Metoprolol Succinate [Toprol XL] 200 mg PO DAILY 06/30/18 09/25/21 History Doxepin [SINEquan] 10 mg PO BID 04/30/21 09/25/21 History Metoclopramide [Reglan] 10 mg PO BID 04/30/21 09/25/21 History Sildenafil Citrate 50 mg PO DAILY PRN 04/30/21 09/25/21 History tiZANidine HCL 4 mg PO DAILY 04/30/21 09/25/21 History ALPRAZolam [Xanax] 1 mg PO BID 09/22/21 09/25/21 History HYDROcodone/APAP 7.5-325MG [[place] 1 tab PO TID 09/22/21 09/25/21 History 7.5-325] Omeprazole 40 mg PO BID 09/22/21 09/25/21 History QUEtiapine FUMARATE [SEROquel] 300 mg PO HS 09/22/21 09/25/21 History QUEtiapine XR [SEROquel XR] 150 mg PO HS 09/22/21 09/25/21 History Diltiazem Cd [Cardizem CD] 300 mg PO DAILY 09/25/21 09/25/21 History Allergies Allergy/AdvReac Type Severity Reaction Status Date / Time No Known Allergies Allergy Verified 09/25/21 17:41 Physical Exam Vitals: Vital Signs Temp Pulse Pulse Resp BP BP Pulse Ox 09/27/21 13:30 96 10 L 120/99 96 09/27/21 13:00 98 14 122/92 95 09/27/21 12:30 97.7 F 101 H 12 126/95 95 09/27/21 06:55 97.8 F 123 H 125/97 96 09/27/21 00:45 97.8 F 112 H 18 141/99 93 L 09/26/21 20:00 98.3 F 87 16 155/98 94 L 09/26/21 19:00 87 Intake and Output 09/26/21 09/27/21 09/27/21 22:59 06:59 14:59 Other: # Voids 3 3 1 Appearance the patient is calm and comfortable likely this is on room air oxygen Head exam: Present: atraumatic, normocephalic Eye exam: Present: normal appearance, PERRL, EOMI Pupils: Present: normal accommodation ENT exam: Present: mucous membranes moist Neck exam: Present: full ROM. Absent: tenderness, meningismus, lymphadenopathy, thyromegaly Respiratory exam: Present: normal lung sounds bilaterally. Absent: respiratory distress, wheezes, rales, rhonchi, stridor Cardiovascular Exam: Present: regular rate, normal rhythm, normal heart sounds. Absent: systolic murmur, diastolic murmur, rubs, gallop, clicks GI/Abdominal exam: Present: soft, normal bowel sounds. Absent: distended, tenderness, guarding, rebound, rigid Extremities exam: Present: full ROM Back exam: Present: normal inspection. Absent: CVA tenderness (R), CVA tenderness (L), paraspinal tenderness, vertebral tenderness Neurological exam: Present: alert, oriented X3, CN II-XII intact, normal gait. Absent: motor sensory deficit Psychiatric exam: Present: normal affect, normal mood Skin exam: Present: warm, dry, intact, normal color. Absent: rash Results - Laboratory Findings CBC and BMP: 09/27/21 04:04 09/27/21 04:04 PT/INR, D-dimer PT 11.4 sec (9.0-12.0) 09/25/21 15:25 INR 1.1 (<1.2) 09/25/21 15:25 Abnormal lab findings: Abnormal Labs 09/25/21 09/25/21 09/26/21 15:24 15:25 06:49 Plt Count MPV Immature Gran # Potassium Carbon Dioxide 14 L BUN BUN/Creatinine Ratio Glucose POC Glucose (mg/dL) 122 H Phosphorus 4.9 H GGT 416 H AST 205 H ALT 98 H Total Protein 8.6 H Albumin 5.4 H Urine Protein 2+ H Urine Ketones 2+ H Urine Blood Moderate H Urine Mucus Rare H U Tricyclic Antidepress Detected H Serum Alcohol 208 H* 09/26/21 09/26/21 09/27/21 12:14 16:26 04:04 Plt Count 137 L MPV 12.3 H Immature Gran # 0.06 H Potassium Carbon Dioxide BUN BUN/Creatinine Ratio Glucose POC Glucose (mg/dL) 194 H 167 H Phosphorus GGT AST ALT Total Protein Albumin Urine Protein Urine Ketones Urine Blood Urine Mucus U Tricyclic Antidepress Serum Alcohol 09/27/21 09/27/21 09/27/21 04:04 06:40 11:37 Plt Count MPV Immature Gran # Potassium 3.1 L Carbon Dioxide BUN 5.3 L BUN/Creatinine Ratio 6.63 L Glucose 129 H POC Glucose (mg/dL) 131 H 140 H Phosphorus GGT AST 214 H ALT 123 H Total Protein Albumin Urine Protein Urine Ketones Urine Blood Urine Mucus U Tricyclic Antidepress Serum Alcohol 09/27/21 12:17 Plt Count MPV Immature Gran # Potassium Carbon Dioxide BUN BUN/Creatinine Ratio Glucose POC Glucose (mg/dL) 170 H Phosphorus GGT AST ALT Total Protein Albumin Urine Protein Urine Ketones Urine Blood Urine Mucus U Tricyclic Antidepress Serum Alcohol - Diagnostic Findings Chest x-ray: image reviewed Assessment and Plan Plan: 1 delirium tremens 2 alcoholism and the patient presented to the hospital with acute alcohol intoxication and his alcohol level was positive for the time of admission 3 hypertension 4 hyperlipidemia 5 smoker 6 chronic anxiety, depression, bipolar disorder 7 acid reflux 8 chronic liver disease with some mild elevation of the AST compared to ALT. Normal coagulation profile Plan Admit this patient to the ICU for further monitoring Management of the delirium tremens with CIWA protocol. Continue Librium Resume his home psychiatric medications Electrolyte management and replace potassium and magnesium as needed Continue with thiamine Precedex infusion if needed We will add heparin subcu for DVT prophylaxis We'll continue to follow
[2021-09-27] MEDS: HEPARIN SODIUM,PORCINE/PF 5,000 UNIT/0.5 ML SYRINGE SQ SCH (20:59)
[2021-09-27] MEDS: ATORVASTATIN 20 MG TAB PO SCH (23:08)
[2021-09-27] MEDS: QUEtiapine 100 MG TAB PO SCH (23:10)
[2021-09-28] MEDS: chlordiazePOXIDE 25 MG CAP PO SCH ×5 (04:06→21:26)
[2021-09-28] MEDS: DEXMEDETOMIDINE/0.9% NACL(PMX) 400 MCG in EMPTY BAG 1 BAG IV SCH ×3 (05:10→20:34)
[2021-09-28 07:21] LABS: Basophils # (A) 0.1 k/uL (0-0.2); Basophils % (A) 1 %; Eosinophils # (A) 0.4 k/uL (0-0.7); Eosinophils % (A) 6 %; HCT 44.6 % (39.0-53.0); HGB 14.7 gm/dL (13.0-17.5); Lymphocytes % (A) 26 %; MCH 30.6 pg (25.0-35.0); MCHC 33.1 g/dL (31.0-37.0); MCV 92.4 fL (80.0-100.0); Mean Platelet Volume 11.1; Monocytes # (A) 0.4 k/uL (0-1.0); Monocytes % (A) 5 %; Neutrophils # (A) 4.4 k/uL (1.3-7.7); Neutrophils % (A) 58 %; Platelet Count 133 k/uL (150-450); RBC 4.82 m/uL (4.30-5.90); RDW 13.3 % (11.5-15.5); WBC 7.6 k/uL (3.8-10.6)
[2021-09-28] MEDS ORDERED: Potassium Replacement Protocol 1 EACH MISC MISCELLANE PRN (07:28)
[2021-09-28] MEDS: HEPARIN SODIUM,PORCINE/PF 5,000 UNIT/0.5 ML SYRINGE SQ SCH ×2 (07:33→20:37)
[2021-09-28] MEDS: DILTIAZEM CD 300 MG CAP.ER.24H PO SCH (07:33)
[2021-09-28] MEDS: ALPRAZolam 1 MG TAB PO SCH ×2 (07:34→20:36)
[2021-09-28] MEDS: HYDROcodone/APAP 7.5-325MG 1 EACH TAB PO SCH ×3 (07:34→21:26)
[2021-09-28] MEDS: PANTOPRAZOLE 40 MG TABLET PO SCH ×2 (07:34→16:04)
[2021-09-28] MEDS: cloNIDine HCL 0.2 MG TAB PO SCH ×3 (07:34→21:26)
[2021-09-28] MEDS: DOXEPIN 10 MG CAP PO SCH ×2 (07:35→20:37)
[2021-09-28] MEDS: METOCLOPRAMIDE 10 MG TAB PO SCH ×2 (07:35→20:37)
[2021-09-28] MEDS: METOPROLOL SUCCINATE (ER) 100 MG TAB.ER.24H PO SCH (07:35)
[2021-09-28] MEDS: THIAMINE 100 MG/ML 2 ML VIAL IVP SCH (07:37)
[2021-09-28] MEDS: QUEtiapine 25 MG TAB PO SCH ×2 (07:37→20:36)
[2021-09-28] MEDS: tiZANidine 4 MG TAB PO SCH (07:37)
[2021-09-28] MEDS: POTASSIUM CHLORIDE ER 20 MEQ TAB.ER PO SCH ×2 (07:39→12:05)
[2021-09-28 07:43] LABS: ALT 154 U/L (4-49); AST 247 U/L (17-59); African American GFR (CKD) >90 (>60 ml/min/1.73 sqM); Albumin 4.5 g/dL (3.5-5.0); Alkaline Phosphatase 98 U/L (38-126); Anion Gap 13 mmol/L; Blood Urea Nitrogen 7 mg/dL (9-20); Calcium 9.1 mg/dL (8.4-10.2); Carbon Dioxide 23 mmol/L (22-30); Chloride 102 mmol/L (98-107); Glucose 136 mg/dL (74-99); Non-African American GFR(CKD) >90 (>60 ml/min/1.73 sqM); Potassium 3.2 mmol/L (3.5-5.1); Sodium 138 mmol/L (137-145); Total Bilirubin 1.1 mg/dL (0.2-1.3); Total Protein 7.5 g/dL (6.3-8.2)
--- NOTE | 2021-09-28 13:08 | P.PN ---
Subjective Progress Note Date: 09/28/21 52-year-old male patient, alcoholism, also known to have hypertension and hyperlipidemia, came into the emergency department on 09/25/2021 for alcohol withdrawal symptoms. The patient had alcohol drinker and he has been apparently drinking heavily over the past 2 weeks. Note that his history of alcoholism has been on many years and the patient has remained sober for around 10 years until couple of months ago when he started drinking again and he has been drinking a fifth of vodka on a daily basis. He was supposed to go to rehabilitation last week and he end up in our hospital. Patient is currently getting Ativan and I was asked to present this patient intensive care unit knowing that his level of care was quite high and the patient has been difficult to observe and manage his behavior and tremor on the medical floor. No seasonal been noted. No focal neurological deficit. He is restless. At time agitated. Noted when he came to us to the hospital, his alcohol level was 28 and his urine toxin was positive for tricyclic. His liver function tests are showing an AST of 205, ALT of 98 and the electrodes are normal with a magnesium level of 2.0. Blood sugars of 93. CBC is essentially within normal limits. For now, the patient is receiving Librium 100 mg by mouth 4 times a day, clonidine 0.2 mg 3 times a day and the patient is also on doxepin 10 mg twice a day, Ativan per CIWA protocol, Seroquel 200 mg daily at bedtime and 75 mg twice a day. He is on thiamine On today's evaluation of 09/20/2021, I'm seeing the patient for a follow-up. The patient is quite comfortable yet the patient is currently covered with Precedex which is running at 0.6 mg/kg/m. Note that the patient did not require any Ativan overnight. His oxygen at 2 L per minute nasal cannula. Despite being on Precedex, the patient is able to move himself back and forth a bedside recliner. No significant hallucinations. No agitation. No confusion. Should be able to gradually wean him off the Precedex. No other significant events overnight. No seizure activity. The patient has a white cell count 7.6 with a hemoglobin of 14.7 and a platelet count of 133. Electrodes are all within normal limits with a potassium level of 3.2 that needs to be replaced. He does have abnormal LFTs consistent with alcoholic liver disease. No focal neurological deficits. Objective - Vital Signs Vital signs: Vital Signs Temp 98.2 F 09/28/21 12:00 Pulse 76 09/28/21 12:00 Resp 20 09/28/21 12:00 BP 102/80 09/28/21 12:00 Pulse Ox 92 L 09/28/21 12:00 Intake & Output 09/27/21 09/28/21 09/28/21 18:59 06:59 18:59 Intake Total 532.118 557.779 187.474 Output Total 0 350 0 Balance 532.118 207.779 187.474 Intake: Intake, IV Titration 32.118 197.779 87.474 Amount Dexmedetomidine/0.9% NaCl 32.118 197.779 87.474 (Pmx) 400 mcg In Empty Bag 1 bag @ 0.2 MCG/KG/HR 6.577 mls/hr IV .[id number] [facility] Rx#:[id number] Oral 360 100 Tube Feeding 500 Output: Urine 0 350 0 Other: Voiding Method Urinal Urinal Incontinent Incontinent # Voids 1 0 3 - Exam Appearance the patient is calm and comfortable likely this is on room air oxygen Head exam: Present: atraumatic, normocephalic Eye exam: Present: normal appearance, PERRL, EOMI Pupils: Present: normal accommodation ENT exam: Present: mucous membranes moist Neck exam: Present: full ROM. Absent: tenderness, meningismus, lymphadenopathy, thyromegaly Respiratory exam: Present: normal lung sounds bilaterally. Absent: respiratory distress, wheezes, rales, rhonchi, stridor Cardiovascular Exam: Present: regular rate, normal rhythm, normal heart sounds. Absent: systolic murmur, diastolic murmur, rubs, gallop, clicks GI/Abdominal exam: Present: soft, normal bowel sounds. Absent: distended, tenderness, guarding, rebound, rigid Extremities exam: Present: full ROM Back exam: Present: normal inspection. Absent: CVA tenderness (R), CVA tenderness (L), paraspinal tenderness, vertebral tenderness Neurological exam: Present: alert, oriented X3, CN II-XII intact, normal gait. Absent: motor sensory deficit Psychiatric exam: Present: normal affect, normal mood Skin exam: Present: warm, dry, intact, normal color. Absent: rash - Labs CBC & Chem 7: 09/28/21 06:40 09/28/21 06:40 Labs: Abnormal Lab Results - Last 24 Hours (Table) 09/28/21 09/28/21 Range/Units 06:40 06:40 Plt Count 133 L (150-450) k/uL Potassium 3.2 L (3.5-5.1) mmol/L BUN 7 L (9-20) mg/dL Glucose 136 H (74-99) mg/dL AST 247 H (17-59) U/L ALT 154 H (4-49) U/L Assessment and Plan Plan: 1 delirium tremens, currently, comfortable on Precedex drip 2 alcoholism and the patient presented to the hospital with acute alcohol intoxication and his alcohol level was positive for the time of admission 3 hypertension 4 hyperlipidemia 5 smoker 6 chronic anxiety, depression, bipolar disorder 7 acid reflux 8 chronic liver disease with some mild elevation of the AST compared to ALT. Normal coagulation profile Plan Continue Precedex drip and gradually wean Monitor this patient's course and ICU Management of the delirium tremens Continue Librium Resume his home psychiatric medications Electrolyte management and replace potassium and magnesium as needed Continue with thiamine We will add heparin subcu for DVT prophylaxis We'll continue to follow
[2021-09-28] MEDS: LORazepam 2 MG/ML INJ IV PRN ×3 (14:01→22:36)
--- NOTE | 2021-09-28 18:12 | PN ---
PROGRESS NOTE This 51-year-old white male is in the ICU at this time due to large amount of Ativan floor. Sugar is in the 90s. Magnesium 2.0. Clonidine for blood pressure and tachycardia have been given. Doxepin, Ativan, CIWA protocol. Hemoglobin 14.7, white count 7.5. Alcoholic liver disease. Vital signs reviewed. Blood pressure 102/80, O2 92, pulse 76, respiratory rate 18-20, temperature 98.2. Cardiovascular S1, S2. Lungs clear. GI is distended, obesity. Extremities: Mild tremor. He appears a little bit groggy. Sodium is 138, potassium 3.2, BUN is 7, creatinine 0.3. He has been in DTs drip, alcoholism, alcohol dependence and intoxication, hypertension, dyslipidemia, nicotine addiction, depression, bipolar, lumbar disc disease, GERD, anxiety. Continue Precedex. Wean as tolerated. Continue Librium get his psych medications going. Subcutaneous heparin. Prognosis guarded. MMODL / IJN: [id number] /
[2021-09-28] MEDS: ATORVASTATIN 20 MG TAB PO SCH (20:36)
[2021-09-28] MEDS: QUEtiapine 100 MG TAB PO SCH (20:37)
[2021-09-29] MEDS: LORazepam 2 MG/ML INJ IV PRN ×14 (00:48→23:44)
[2021-09-29] MEDS: DEXMEDETOMIDINE/0.9% NACL(PMX) 400 MCG in EMPTY BAG 1 BAG IV SCH ×5 (01:50→23:18)
[2021-09-29 06:35] LABS: Basophils # (A) 0.1 k/uL (0-0.2); Basophils % (A) 1 %; Eosinophils # (A) 0.3 k/uL (0-0.7); Eosinophils % (A) 4 %; HCT 43.5 % (39.0-53.0); HGB 14.7 gm/dL (13.0-17.5); Lymphocytes # (A) 2.2 k/uL (1.0-4.8); Lymphocytes % (A) 26 %; MCHC 33.7 g/dL (31.0-37.0); MCV 91.9 fL (80.0-100.0); Monocytes # (A) 0.7 k/uL (0-1.0); Monocytes % (A) 8 %; Neutrophils # (A) 5.1 k/uL (1.3-7.7); Neutrophils % (A) 60 %; Platelet Count 123 k/uL (150-450); RBC 4.73 m/uL (4.30-5.90); RDW 13.1 % (11.5-15.5); WBC 8.5 k/uL (3.8-10.6)
[2021-09-29 06:47] LABS: African American GFR (CKD) >90 (>60 ml/min/1.73 sqM); Anion Gap 12 mmol/L; Blood Urea Nitrogen 6 mg/dL (9-20); Calcium 8.7 mg/dL (8.4-10.2); Carbon Dioxide 20 mmol/L (22-30); Chloride 107 mmol/L (98-107); Glucose 125 mg/dL (74-99); Non-African American GFR(CKD) >90 (>60 ml/min/1.73 sqM); Potassium 3.5 mmol/L (3.5-5.1); Sodium 139 mmol/L (137-145)
[2021-09-29] MEDS ORDERED: POTASSIUM CHLORIDE ER 20 MEQ TAB.ER PO STA (07:39)
[2021-09-29] MEDS: HEPARIN SODIUM,PORCINE/PF 5,000 UNIT/0.5 ML SYRINGE SQ SCH ×2 (08:00→20:05)
[2021-09-29] MEDS: DILTIAZEM CD 300 MG CAP.ER.24H PO SCH (08:00)
[2021-09-29] MEDS: tiZANidine 4 MG TAB PO SCH (08:00)
[2021-09-29] MEDS: THIAMINE 100 MG/ML 2 ML VIAL IVP SCH (08:01)
[2021-09-29] MEDS: DOXEPIN 10 MG CAP PO SCH ×2 (08:01→20:12)
[2021-09-29] MEDS: QUEtiapine 25 MG TAB PO SCH ×2 (08:01→20:12)
[2021-09-29] MEDS: METOPROLOL SUCCINATE (ER) 100 MG TAB.ER.24H PO SCH (08:01)
[2021-09-29] MEDS: METOCLOPRAMIDE 10 MG TAB PO SCH ×2 (08:01→20:12)
[2021-09-29] MEDS: cloNIDine HCL 0.2 MG TAB PO SCH ×3 (08:01→20:12)
[2021-09-29] MEDS: PANTOPRAZOLE 40 MG TABLET PO SCH ×2 (08:02→15:35)
[2021-09-29] MEDS: HYDROcodone/APAP 7.5-325MG 1 EACH TAB PO SCH ×4 (08:02→21:32)
[2021-09-29] MEDS: ALPRAZolam 1 MG TAB PO SCH ×2 (08:02→20:05)
[2021-09-29] MEDS: chlordiazePOXIDE 25 MG CAP PO SCH ×4 (12:18→20:04)
--- NOTE | 2021-09-29 12:19 | P.PN ---
Subjective Progress Note Date: 09/29/21 52-year-old male patient, alcoholism, also known to have hypertension and hyperlipidemia, came into the emergency department on 09/25/2021 for alcohol withdrawal symptoms. The patient had alcohol drinker and he has been apparently drinking heavily over the past 2 weeks. Note that his history of alcoholism has been on many years and the patient has remained sober for around 10 years until couple of months ago when he started drinking again and he has been drinking a fifth of vodka on a daily basis. He was supposed to go to rehabilitation last week and he end up in our hospital. Patient is currently getting Ativan and I was asked to present this patient intensive care unit knowing that his level of care was quite high and the patient has been difficult to observe and manage his behavior and tremor on the medical floor. No seasonal been noted. No focal neurological deficit. He is restless. At time agitated. Noted when he came to us to the hospital, his alcohol level was 28 and his urine toxin was positive for tricyclic. His liver function tests are showing an AST of 205, ALT of 98 and the electrodes are normal with a magnesium level of 2.0. Blood sugars of 93. CBC is essentially within normal limits. For now, the patient is receiving Librium 100 mg by mouth 4 times a day, clonidine 0.2 mg 3 times a day and the patient is also on doxepin 10 mg twice a day, Ativan per CIWA protocol, Seroquel 200 mg daily at bedtime and 75 mg twice a day. He is on thiamine On today's evaluation of 09/20/2021, I'm seeing the patient for a follow-up. The patient is quite comfortable yet the patient is currently covered with Precedex which is running at 0.6 mg/kg/m. Note that the patient did not require any Ativan overnight. His oxygen at 2 L per minute nasal cannula. Despite being on Precedex, the patient is able to move himself back and forth a bedside recliner. No significant hallucinations. No agitation. No confusion. Should be able to gradually wean him off the Precedex. No other significant events overnight. No seizure activity. The patient has a white cell count 7.6 with a hemoglobin of 14.7 and a platelet count of 133. Electrodes are all within normal limits with a potassium level of 3.2 that needs to be replaced. He does have abnormal LFTs consistent with alcoholic liver disease. No focal neurological deficits. 09/29/2021, the patient is still in the intensive care unit. The patient is still having episodes of agitation requiring Ativan a total of 7 mg overnight and 2 mg this morning. Furthermore, the patient remains on Seroquel, Librium and the patient is also on Precedex at 0.7 mcg/kg per minute. He has a sitter at the bedside and the patient also has 2 point restraints. On and off is becoming agitated. He still present a Velcro withdrawal. His cardiac rhythm is sinus. No reported aspiration. He remains nothing by mouth. White cell count of 8.5 with hemoglobin 14.7. BNP is at 6 with a creatinine of 0.8 and the sodium level is at 139. LFTs were slightly abnormal as mentioned. There is consistent with alcoholic liver disease. No other issues otherwise for now. The patient will be kept in the ICU for management of delirium tremors. No seizure activity has been noted. No focal neurological deficit. He is arousable and he gets agitated once awake. Objective - Vital Signs Vital signs: Vital Signs Temp 98.9 F 09/29/21 12:00 Pulse 86 09/29/21 12:00 Resp 7 L 09/29/21 12:00 BP 133/85 09/29/21 12:00 Pulse Ox 92 L 09/29/21 12:00 Intake & Output 09/28/21 09/29/21 09/29/21 18:59 06:59 18:59 Intake Total 1437.474 230.338 79.227 Output Total 650 1300 600 Balance 787.474 -1069.662 -520.773 Weight 122.7 kg Intake: Intake, IV Titration 187.474 230.338 79.227 Amount Dexmedetomidine/0.9% NaCl 187.474 230.338 79.227 (Pmx) 400 mcg In Empty Bag 1 bag @ 0.2 MCG/KG/HR 6.577 mls/hr IV .[id number] [facility] Rx#:[id number] Oral 1000 Tube Feeding 250 Output: Urine 650 1300 600 Other: Voiding Method Urinal Urinal Urinal Incontinent # Voids 3 0 0 # Bowel Movements 1 - Exam Appearance the patient is calm and comfortable likely this is on 2 L of oxygen nasal cannula, no signs of any respiratory distress, the patient is on Precedex to control his agitation. No shakiness pain no tremors. Wakes up confused and agitated and restless. Body mass index is 32.1. Head exam: Present: atraumatic, normocephalic Eye exam: Present: normal appearance, PERRL, EOMI Pupils: Present: normal accommodation ENT exam: Present: mucous membranes moist Neck exam: Present: full ROM. Absent: tenderness, meningismus, lymphadenopathy, thyromegaly Respiratory exam: Present: normal lung sounds bilaterally. Absent: respiratory distress, wheezes, rales, rhonchi, stridor Cardiovascular Exam: Present: regular rate, normal rhythm, normal heart sounds. Absent: systolic murmur, diastolic murmur, rubs, gallop, clicks GI/Abdominal exam: Present: soft, normal bowel sounds. Absent: distended, tenderness, guarding, rebound, rigid Extremities exam: Present: full ROM Back exam: Present: normal inspection. Absent: CVA tenderness (R), CVA tenderness (L), paraspinal tenderness, vertebral tenderness Neurological exam: Present: alert, oriented X3, CN II-XII intact, normal gait. Absent: motor sensory deficit Psychiatric exam: Present: normal affect, normal mood Skin exam: Present: warm, dry, intact, normal color. Absent: rash - Labs CBC & Chem 7: 09/29/21 06:22 09/29/21 06:22 Labs: Abnormal Lab Results - Last 24 Hours (Table) 09/29/21 09/29/21 Range/Units 06:22 06:22 Plt Count 123 L (150-450) k/uL Carbon Dioxide 20 L (22-30) mmol/L BUN 6 L (9-20) mg/dL Glucose 125 H (74-99) mg/dL Assessment and Plan Plan: 1 delirium tremens, currently, comfortable on Precedex drip, in combination with Ativan a total of 9 mg was given to this patient over the past 24 hours and the patient is also on Seroquel and Librium. He takes [place] for pain. 2 alcoholism and the patient presented to the hospital with acute alcohol intoxication and his alcohol level was positive for the time of admission 3 hypertension 4 hyperlipidemia 5 smoker 6 chronic anxiety, depression, bipolar disorder 7 acid reflux 8 chronic liver disease with some mild elevation of the AST compared to ALT. Normal coagulation profile Plan Continue Precedex drip and gradually wean, also continue the Ativan as needed. The patient is also on Librium and this will be continued. Sitter at the bedside 2 point restraints if needed We'll may still need to monitor this patient's course and ICU because of his ongoing requirement for drip send sedative medications. Management of the delirium tremens Continue Librium Electrolyte management and replace potassium and magnesium as needed Continue with thiamine Heparin subcu for DVT prophylaxis Aspiration precautions We'll continue to follow
--- NOTE | 2021-09-29 17:51 | PN ---
PROGRESS NOTE This 51-year-old white male is still in the ICU. He is having a lot of agitation, requiring 7 mg overnight of Ativan, 2 mg this morning. He is on Seroquel, Librium, Precedex. He has a sitter at the bedside. He has had two-point restraints due to severe agitation. White count is 8.5, hemoglobin 14.7. BNP 6. Creatinine 0.8. He is managed for delirium tremens. No seizure activity. He is agitated when awake. Oxygen saturation 92, blood pressure 130s over 80s, respiratory rate 10 to 12, pulse 80s, temperature 99. He is calm, comfortable, on 2 L oxygen. confused. BMI is 32. Cardiovascular S1, S2. Some tachycardia. Lungs clear. GI is distended. Psych fair mood and affect. Labs reviewed. ASSESSMENT: 1. Delirium tremens. 2. Alcoholism. 3. Hypertension. 4. Dyslipidemia. 5. Nicotine addiction. 6. Anxiety. 7. Gastroesophageal reflux disease. 8. Chronic liver disease. 9. Lumbar degenerative disc disease. continued. Wean off Precedex. Ativan, Librium strength as needed. Continue with thiamine, aspiration precautions. Prognosis guarded. MMODL / IJN: [id number] /
[2021-09-29] MEDS: ATORVASTATIN 20 MG TAB PO SCH (20:05)
[2021-09-29] MEDS: QUEtiapine 100 MG TAB PO SCH (20:13)
[2021-09-30] MEDS: DEXMEDETOMIDINE/0.9% NACL(PMX) 400 MCG in EMPTY BAG 1 BAG IV SCH ×9 (01:35→23:20)
[2021-09-30] MEDS: LORazepam 2 MG/ML INJ IV PRN ×12 (02:22→22:55)
[2021-09-30] MEDS: HEPARIN SODIUM,PORCINE/PF 5,000 UNIT/0.5 ML SYRINGE SQ SCH ×2 (08:12→20:49)
[2021-09-30] MEDS: NICOTINE 21MG/24HR PATCH TRANSDERM SCH (09:21)
[2021-09-30] MEDS: HYDROcodone/APAP 7.5-325MG 1 EACH TAB PO SCH ×3 (09:37→20:17)
[2021-09-30] MEDS: METOPROLOL SUCCINATE (ER) 100 MG TAB.ER.24H PO SCH (09:38)
[2021-09-30] MEDS: METOCLOPRAMIDE 10 MG TAB PO SCH ×2 (09:38→20:19)
[2021-09-30] MEDS: tiZANidine 4 MG TAB PO SCH (09:38)
[2021-09-30] MEDS: PANTOPRAZOLE 40 MG TABLET PO SCH ×2 (09:38→16:27)
[2021-09-30] MEDS: cloNIDine HCL 0.2 MG TAB PO SCH ×4 (09:38→20:19)
[2021-09-30] MEDS: THIAMINE 100 MG TAB PO SCH (09:38)
[2021-09-30] MEDS: DOXEPIN 10 MG CAP PO SCH ×2 (09:39→20:50)
[2021-09-30] MEDS: DILTIAZEM CD 300 MG CAP.ER.24H PO SCH (09:39)
[2021-09-30] MEDS: QUEtiapine 25 MG TAB PO SCH ×2 (09:39→20:18)
[2021-09-30] MEDS: chlordiazePOXIDE 25 MG CAP PO SCH ×4 (09:46→20:49)
[2021-09-30 09:50] LABS: MCH 30.9 pg (25.0-35.0); MCHC 33.3 g/dL (31.0-37.0); MCV 92.9 fL (80.0-100.0); Mean Platelet Volume 10.8; Platelet Count 116 k/uL (150-450); RBC 4.52 m/uL (4.30-5.90); RDW 13.4 % (11.5-15.5)
[2021-09-30 10:05] LABS: ALT 133 U/L (4-49); AST 128 U/L (17-59); African American GFR (CKD) >90 (>60 ml/min/1.73 sqM); Amylase 35 U/L (30-110); Anion Gap 11 mmol/L; Blood Urea Nitrogen 6 mg/dL (9-20); Calcium 8.7 mg/dL (8.4-10.2); Carbon Dioxide 24 mmol/L (22-30); Chloride 108 mmol/L (98-107); Glucose 127 mg/dL (74-99); Lipase 96 U/L (23-300); Magnesium 1.6 mg/dL (1.6-2.3); Non-African American GFR(CKD) >90 (>60 ml/min/1.73 sqM); Phosphorus 4.7 mg/dL (2.5-4.5); Potassium 3.7 mmol/L (3.5-5.1); Sodium 143 mmol/L (137-145)
--- NOTE | 2021-09-30 12:17 | P.PN ---
Subjective Progress Note Date: 09/30/21 52-year-old male patient, alcoholism, also known to have hypertension and hyperlipidemia, came into the emergency department on 09/25/2021 for alcohol withdrawal symptoms. The patient had alcohol drinker and he has been apparently drinking heavily over the past 2 weeks. Note that his history of alcoholism has been on many years and the patient has remained sober for around 10 years until couple of months ago when he started drinking again and he has been drinking a fifth of vodka on a daily basis. He was supposed to go to rehabilitation last week and he end up in our hospital. Patient is currently getting Ativan and I was asked to present this patient intensive care unit knowing that his level of care was quite high and the patient has been difficult to observe and manage his behavior and tremor on the medical floor. No seasonal been noted. No focal neurological deficit. He is restless. At time agitated. Noted when he came to us to the hospital, his alcohol level was 28 and his urine toxin was positive for tricyclic. His liver function tests are showing an AST of 205, ALT of 98 and the electrodes are normal with a magnesium level of 2.0. Blood sugars of 93. CBC is essentially within normal limits. For now, the patient is receiving Librium 100 mg by mouth 4 times a day, clonidine 0.2 mg 3 times a day and the patient is also on doxepin 10 mg twice a day, Ativan per CIWA protocol, Seroquel 200 mg daily at bedtime and 75 mg twice a day. He is on thiamine On today's evaluation of 09/20/2021, I'm seeing the patient for a follow-up. The patient is quite comfortable yet the patient is currently covered with Precedex which is running at 0.6 mg/kg/m. Note that the patient did not require any Ativan overnight. His oxygen at 2 L per minute nasal cannula. Despite being on Precedex, the patient is able to move himself back and forth a bedside recliner. No significant hallucinations. No agitation. No confusion. Should be able to gradually wean him off the Precedex. No other significant events overnight. No seizure activity. The patient has a white cell count 7.6 with a hemoglobin of 14.7 and a platelet count of 133. Electrodes are all within normal limits with a potassium level of 3.2 that needs to be replaced. He does have abnormal LFTs consistent with alcoholic liver disease. No focal neurological deficits. 09/29/2021, the patient is still in the intensive care unit. The patient is still having episodes of agitation requiring Ativan a total of 7 mg overnight and 2 mg this morning. Furthermore, the patient remains on Seroquel, Librium and the patient is also on Precedex at 0.7 mcg/kg per minute. He has a sitter at the bedside and the patient also has 2 point restraints. On and off is becoming agitated. He still present a Velcro withdrawal. His cardiac rhythm is sinus. No reported aspiration. He remains nothing by mouth. White cell count of 8.5 with hemoglobin 14.7. BNP is at 6 with a creatinine of 0.8 and the sodium level is at 139. LFTs were slightly abnormal as mentioned. There is consistent with alcoholic liver disease. No other issues otherwise for now. The patient will be kept in the ICU for management of delirium tremors. No seizure activity has been noted. No focal neurological deficit. He is arousable and he gets agitated once awake. 09/30/2021, the patient continues to have issues with agitation. As such, the patient has required a total of 25 mg of Ativan over the past 24 hours. He remains on Precedex at 1 g kilogram per minute.. The patient has been quite somnolent this morning. He response to stimulation. He can follow some simple commands such as using his and then moving his feet and toes. Hemodynamically stable. No signs of any seizure activity. No reported aspiration. He remains nothing by mouth. Obviously, this is a case of severe delirium tremens. Unable to wean the Precedex at this point in time. There is at sitter at the bedside. Wasn't positive edema 14, BUN is at 6 with a creatinine of 0.8 and sodium level was at 143. LFTs are also improving. Amylase and lipase are within normal limits. We will also check an ammonia level. Objective - Vital Signs Vital signs: Vital Signs Temp 97.2 F L 09/30/21 08:00 Pulse 75 09/30/21 11:00 Resp 26 H 09/30/21 11:00 BP 117/82 09/30/21 11:00 Pulse Ox 92 L 09/30/21 11:00 Intake & Output 03/08/2209/30/21 09/30/21 18:59 06:59 18:59 Intake Total 827.772 887.615 189.012 Output Total 1950 0 Balance -1122.228 887.615 189.012 Weight 122.5 kg Intake: Intake, IV Titration 167.772 297.615 189.012 Amount Dexmedetomidine/0.9% NaCl 167.772 297.615 189.012 (Pmx) 400 mcg In Empty Bag 1 bag @ 0.2 MCG/KG/HR 6.577 mls/hr IV .[id number] [facility] Rx#:[id number] Oral 660 590 Output: Urine 1950 0 Other: Voiding Method Urinal Urinal # Voids 0 1 - Exam Appearance the patient is calm and comfortable likely this is on 2 L of oxygen nasal cannula, no signs of any respiratory distress, the patient is on Precedex to control his agitation. No shakiness pain no tremors. Wakes up confused and agitated and restless. Body mass index is 32.1. Head exam: Present: atraumatic, normocephalic Eye exam: Present: normal appearance, PERRL, EOMI Pupils: Present: normal accommodation ENT exam: Present: mucous membranes moist Neck exam: Present: full ROM. Absent: tenderness, meningismus, lymphadenopathy, thyromegaly Respiratory exam: Present: normal lung sounds bilaterally. Absent: respiratory distress, wheezes, rales, rhonchi, stridor Cardiovascular Exam: Present: regular rate, normal rhythm, normal heart sounds. Absent: systolic murmur, diastolic murmur, rubs, gallop, clicks GI/Abdominal exam: Present: soft, normal bowel sounds. Absent: distended, tenderness, guarding, rebound, rigid Extremities exam: Present: full ROM Back exam: Present: normal inspection. Absent: CVA tenderness (R), CVA tenderness (L), paraspinal tenderness, vertebral tenderness Neurological exam: Present: alert, oriented X3, CN II-XII intact, normal gait. Absent: motor sensory deficit Psychiatric exam: Present: normal affect, normal mood Skin exam: Present: warm, dry, intact, normal color. Absent: rash - Labs CBC & Chem 7: 09/30/21 09:09 09/30/21 09:09 Labs: Abnormal Lab Results - Last 24 Hours (Table) 09/30/21 09/30/21 Range/Units 09:09 09:09 Plt Count 116 L (150-450) k/uL Chloride 108 H (98-107) mmol/L BUN 6 L (9-20) mg/dL Glucose 127 H (74-99) mg/dL Phosphorus 4.7 H (2.5-4.5) mg/dL AST 128 H (17-59) U/L ALT 133 H (4-49) U/L Assessment and Plan Plan: 1 delirium tremens, currently, comfortable on Precedex drip, and the patient has required significant amount of Ativan for increased agitation overnight in combination with his psychiatric and psychotropic medications. Still requiring Precedex drip at 1 mcg/kg per minute. The delirium tremens selective. The patient gets agitated while off the treatment and will continue treatment for now. 2 alcoholism and the patient presented to the hospital with acute alcohol intoxication and his alcohol level was positive for the time of admission 3 hypertension 4 hyperlipidemia 5 smoker 6 chronic anxiety, depression, bipolar disorder 7 acid reflux 8 chronic liver disease with some mild elevation of the AST compared to ALT. Normal coagulation profile Plan Continue Precedex drip and gradually wean, also continue the Ativan as needed. Continue Librium Sitter at the bedside We'll may still need to monitor this patient's course and ICU Management of the delirium tremens Electrolyte management and replace potassium and magnesium as needed Continue with thiamine Continue Seroquel Continue the doxepin Stop Xanax Heparin subcu for DVT prophylaxis Aspiration precautions We'll continue to follow
[2021-09-30] MEDS ORDERED: Magnesium Replacement Protocol 1 EACH MISC MISCELLANE PRN (15:54)
[2021-09-30] MEDS: POTASSIUM CHLORIDE 10 MEQ in WATER FOR INJECTION 1 100ML.BAG IVPB SCH ×2 (16:11→17:54)
[2021-09-30] MEDS: MAGNESIUM SULFATE-D5W PMX 1 GM in DEXTROSE/WATER 1 100ML.BAG IVPB SCH ×2 (16:12→17:57)
[2021-09-30] MEDS: QUEtiapine 100 MG TAB PO SCH (20:18)
[2021-09-30] MEDS: ATORVASTATIN 20 MG TAB PO SCH (20:49)
[2021-10-01] MEDS: LORazepam 2 MG/ML INJ IV PRN ×9 (00:24→22:39)
[2021-10-01] MEDS: DEXMEDETOMIDINE/0.9% NACL(PMX) 400 MCG in EMPTY BAG 1 BAG IV SCH ×7 (01:29→18:16)
--- NOTE | 2021-10-01 04:30 | PN ---
PROGRESS NOTE 51-year-old white male with alcohol delirium tremens. Remains in ICU. He required a total of 25 mg of Ativan in the last 24 hours, 8 mg on day shift today. He is on Precedex also. Quite somnolent. Response stimulation. He sometimes wakes up he is confused. Sometimes he wakes up combative, sometimes wakes up and wonders why he is in ICU. No signs of seizure activity. He has severe delirium tremens. They were unable to wean the Precedex. Sitter at the bedside. The labs were reviewed. Amylase and lipase normal. Temp 97, pulse 75, respiratory rate 20-26, blood pressure 117/82, O2 92%. Neurologic: Mild tremor. Cardiovascular S1, S2. Lungs clear. Hematology: Negative Homans. ASSESSMENT: 1. Severe delirium tremens. 2. Anxiety. 3. Alcoholism, alcohol intoxication. 4. Hypertension. 5. Dyslipidemia. 6. Nicotine addiction. 7. Lumbar neuropathy. 8. Bipolar. Remains on Precedex, Ativan, Librium. Wean as tolerated. Continue electrolytes, thiamine, Seroquel, doxepin. No Xanax. Heparin subcu. Aspiration precautions. Prognosis guarded. MMODL / IJN: [id number] /
[2021-10-01 09:54] LABS: Basophils # (A) 0.1 k/uL (0-0.2); Basophils % (A) 1 %; Eosinophils # (A) 0.2 k/uL (0-0.7); Eosinophils % (A) 3 %; HCT 40.9 % (39.0-53.0); HGB 13.6 gm/dL (13.0-17.5); Lymphocytes # (A) 1.6 k/uL (1.0-4.8); Lymphocytes % (A) 19 %; MCH 31.4 pg (25.0-35.0); MCHC 33.4 g/dL (31.0-37.0); MCV 94.1 fL (80.0-100.0); Mean Platelet Volume 10.9; Monocytes % (A) 11 %; Neutrophils # (A) 5.4 k/uL (1.3-7.7); Neutrophils % (A) 64 %; Platelet Count 111 k/uL (150-450); RBC 4.34 m/uL (4.30-5.90); RDW 13.5 % (11.5-15.5); WBC 8.5 k/uL (3.8-10.6)
[2021-10-01 10:01] LABS: ALT 113 U/L (4-49); AST 113 U/L (17-59); African American GFR (CKD) >90 (>60 ml/min/1.73 sqM); Albumin 3.5 g/dL (3.5-5.0); Alkaline Phosphatase 111 U/L (38-126); Anion Gap 9 mmol/L; Blood Urea Nitrogen 5 mg/dL (9-20); Calcium 8.3 mg/dL (8.4-10.2); Carbon Dioxide 22 mmol/L (22-30); Chloride 109 mmol/L (98-107); Glucose 122 mg/dL (74-99); Non-African American GFR(CKD) >90 (>60 ml/min/1.73 sqM); Potassium 3.3 mmol/L (3.5-5.1); Sodium 140 mmol/L (137-145); Total Bilirubin 0.8 mg/dL (0.2-1.3); Total Protein 6.3 g/dL (6.3-8.2)
[2021-10-01] MEDS: HEPARIN SODIUM,PORCINE/PF 5,000 UNIT/0.5 ML SYRINGE SQ SCH ×2 (10:10→19:40)
[2021-10-01] MEDS: SODIUM CHLORIDE 0.9% 1,000 ML IV SCH (10:10)
[2021-10-01] MEDS: NICOTINE 21MG/24HR PATCH TRANSDERM SCH (10:10)
[2021-10-01] MEDS: PANTOPRAZOLE 40 MG TABLET PO SCH ×2 (11:23→17:21)
[2021-10-01] MEDS: THIAMINE 100 MG TAB PO SCH (11:24)
[2021-10-01] MEDS: METOCLOPRAMIDE 10 MG TAB PO SCH ×2 (11:24→19:32)
[2021-10-01] MEDS: cloNIDine HCL 0.2 MG TAB PO SCH ×3 (11:25→19:30)
[2021-10-01] MEDS: chlordiazePOXIDE 25 MG CAP PO SCH ×4 (11:25→20:37)
[2021-10-01] MEDS: DILTIAZEM CD 300 MG CAP.ER.24H PO SCH (11:25)
[2021-10-01] MEDS: QUEtiapine 25 MG TAB PO SCH ×2 (11:26→19:23)
[2021-10-01] MEDS: HYDROcodone/APAP 7.5-325MG 1 EACH TAB PO SCH ×3 (11:26→20:02)
[2021-10-01] MEDS: DOXEPIN 10 MG CAP PO SCH ×2 (11:26→19:30)
[2021-10-01] MEDS: tiZANidine 4 MG TAB PO SCH (11:26)
[2021-10-01 11:54] LABS: Glucose,Whole Blood 136 mg/dL (75-99)
--- NOTE | 2021-10-01 12:53 | P.PN ---
Subjective Progress Note Date: 10/01/21 52-year-old male patient, alcoholism, also known to have hypertension and hyperlipidemia, came into the emergency department on 09/25/2021 for alcohol withdrawal symptoms. The patient had alcohol drinker and he has been apparently drinking heavily over the past 2 weeks. Note that his history of alcoholism has been on many years and the patient has remained sober for around 10 years until couple of months ago when he started drinking again and he has been drinking a fifth of vodka on a daily basis. He was supposed to go to rehabilitation last week and he end up in our hospital. Patient is currently getting Ativan and I was asked to present this patient intensive care unit knowing that his level of care was quite high and the patient has been difficult to observe and manage his behavior and tremor on the medical floor. No seasonal been noted. No focal neurological deficit. He is restless. At time agitated. Noted when he came to us to the hospital, his alcohol level was 28 and his urine toxin was positive for tricyclic. His liver function tests are showing an AST of 205, ALT of 98 and the electrodes are normal with a magnesium level of 2.0. Blood sugars of 93. CBC is essentially within normal limits. For now, the patient is receiving Librium 100 mg by mouth 4 times a day, clonidine 0.2 mg 3 times a day and the patient is also on doxepin 10 mg twice a day, Ativan per CIWA protocol, Seroquel 200 mg daily at bedtime and 75 mg twice a day. He is on thiamine On today's evaluation of 09/20/2021, I'm seeing the patient for a follow-up. The patient is quite comfortable yet the patient is currently covered with Precedex which is running at 0.6 mg/kg/m. Note that the patient did not require any Ativan overnight. His oxygen at 2 L per minute nasal cannula. Despite being on Precedex, the patient is able to move himself back and forth a bedside recliner. No significant hallucinations. No agitation. No confusion. Should be able to gradually wean him off the Precedex. No other significant events overnight. No seizure activity. The patient has a white cell count 7.6 with a hemoglobin of 14.7 and a platelet count of 133. Electrodes are all within normal limits with a potassium level of 3.2 that needs to be replaced. He does have abnormal LFTs consistent with alcoholic liver disease. No focal neurological deficits. 09/29/2021, the patient is still in the intensive care unit. The patient is still having episodes of agitation requiring Ativan a total of 7 mg overnight and 2 mg this morning. Furthermore, the patient remains on Seroquel, Librium and the patient is also on Precedex at 0.7 mcg/kg per minute. He has a sitter at the bedside and the patient also has 2 point restraints. On and off is becoming agitated. He still present a Velcro withdrawal. His cardiac rhythm is sinus. No reported aspiration. He remains nothing by mouth. White cell count of 8.5 with hemoglobin 14.7. BNP is at 6 with a creatinine of 0.8 and the sodium level is at 139. LFTs were slightly abnormal as mentioned. There is consistent with alcoholic liver disease. No other issues otherwise for now. The patient will be kept in the ICU for management of delirium tremors. No seizure activity has been noted. No focal neurological deficit. He is arousable and he gets agitated once awake. 09/30/2021, the patient continues to have issues with agitation. As such, the patient has required a total of 25 mg of Ativan over the past 24 hours. He remains on Precedex at 1 g kilogram per minute.. The patient has been quite somnolent this morning. He response to stimulation. He can follow some simple commands such as using his and then moving his feet and toes. Hemodynamically stable. No signs of any seizure activity. No reported aspiration. He remains nothing by mouth. Obviously, this is a case of severe delirium tremens. Unable to wean the Precedex at this point in time. There is at sitter at the bedside. Wasn't positive edema 14, BUN is at 6 with a creatinine of 0.8 and sodium level was at 143. LFTs are also improving. Amylase and lipase are within normal limits. We will also check an ammonia level. 10/01/2021, the patient remains in the intensive care unit. Continues to have sitters to monitor his agitation. He was doing well and overnight he became very agitated and he was swinging and punching and attacking nursing staff. Based on that, he was given a total of 80 mg of Ativan overnight. This morning he is also on Precedex at 1.4 mg/kg/m very much somnolent and sleepy. Nevertheless, he is able to protect his airways. He remains of liters of oxygen by nasal cannula and a pulse ox of 97%. Unable to take his oral medications. He is also receiving normal state rate of 75 mL an hour. No seizure activity. He is having normal blood work. The white cell count of 8.5 with hemoglobin 13.6. Platelets are chronically low at 111, the patient has no elevation of the ammonia and ammonia level came back as less than 9. Normal electrolytes and the potassium needs to be replaced at 3.3, BUN is at 5 with a creatinine of 0.8 and a mild elevation of ALP and AST is a chronic alcoholism. Amylase and lipase are not elevated at this point in time. The patient remains nothing by mouth Objective - Vital Signs Vital signs: Vital Signs Temp 97.7 F 10/01/21 12:00 Pulse 68 10/01/21 12:00 Resp 14 10/01/21 12:00 BP 126/82 10/01/21 12:00 Pulse Ox 96 10/01/21 12:00 Intake & Output 09/30/21 10/01/21 10/01/21 18:59 06:59 18:59 Intake Total 1085.441 777.205 474.712 Output Total 1000 0 0 Balance 85.441 777.205 474.712 Weight 123 kg Intake: IV 430 30 225 Magnesium Sulfate-D5w Pmx 200 1 gm In Dextrose/Water 1 100ml.bag @ 100 mls/hr IVPB Q1H [facility] Rx#: [id number] Normal Saline 0.9 @ 10mL/ 30 30 hr Potassium Chloride 10 meq 200 In Water For Injection 1 100ml.bag @ 100 mls/hr IVPB Q1H [facility] Rx#: [id number] Sodium Chloride 0.9% 1, 225 000 ml @ 75 mls/hr IV . [id number] [facility] Rx#:[id number] Intake, IV Titration 455.441 497.205 249.712 Amount Dexmedetomidine/0.9% NaCl 455.441 497.205 249.712 (Pmx) 400 mcg In Empty Bag 1 bag @ 0.2 MCG/KG/HR 6.577 mls/hr IV .[id number] [facility] Rx#:[id number] Oral 200 250 Output: Urine 1000 0 0 Other: # Voids 1 1 1 - Exam Appearance the patient is calm and comfortable likely this is on 2 L of oxygen nasal cannula, no signs of any respiratory distress, the patient is on Precedex to control his agitation. No shakiness pain no tremors. Wakes up confused and agitated and restless. Body mass index is 32.1. Head exam: Present: atraumatic, normocephalic Eye exam: Present: normal appearance, PERRL, EOMI Pupils: Present: normal accommodation ENT exam: Present: mucous membranes moist Neck exam: Present: full ROM. Absent: tenderness, meningismus, lymphadenopathy, thyromegaly Respiratory exam: Present: normal lung sounds bilaterally. Absent: respiratory distress, wheezes, rales, rhonchi, stridor Cardiovascular Exam: Present: regular rate, normal rhythm, normal heart sounds. Absent: systolic murmur, diastolic murmur, rubs, gallop, clicks GI/Abdominal exam: Present: soft, normal bowel sounds. Absent: distended, tenderness, guarding, rebound, rigid Extremities exam: Present: full ROM Back exam: Present: normal inspection. Absent: CVA tenderness (R), CVA tenderness (L), paraspinal tenderness, vertebral tenderness Neurological exam: Present: alert, oriented X3, CN II-XII intact, normal gait. Absent: motor sensory deficit Psychiatric exam: Present: normal affect, normal mood Skin exam: Present: warm, dry, intact, normal color. Absent: rash - Labs CBC & Chem 7: 10/01/21 05:50 10/01/21 05:50 Labs: Abnormal Lab Results - Last 24 Hours (Table) 10/01/21 10/01/21 10/01/21 Range/Units 05:50 05:50 11:52 Plt Count 111 L (150-450) k/uL Potassium 3.3 L (3.5-5.1) mmol/L Chloride 109 H (98-107) mmol/L BUN 5 L (9-20) mg/dL Glucose 122 H (74-99) mg/dL POC Glucose (mg/dL) 136 H (75-99) mg/dL Calcium 8.3 L (8.4-10.2) mg/dL AST 113 H (17-59) U/L ALT 113 H (4-49) U/L Assessment and Plan Plan: 1 delirium tremens, currently, comfortable on Precedex drip, and the patient has required significant amount of Ativan for increased agitation overnight in combination with his psychiatric and psychotropic medications. Still requiring Precedex drip at 1.4 mcg/kg per minute. The delirium tremens selective. The patient gets agitated while off the treatment and will continue treatment for now. The patient is still on Ativan based on the CIWA protocol. 2 alcoholism and the patient presented to the hospital with acute alcohol intoxication and his alcohol level was positive for the time of admission 3 hypertension 4 hyperlipidemia 5 smoker 6 chronic anxiety, depression, bipolar disorder 7 acid reflux 8 chronic liver disease with some mild elevation of the AST compared to ALT. Normal coagulation profile Plan Continue Precedex drip and gradually wean, also continue the Ativan as needed. I believe that the patient's sedation level is quite deep and this point in time and we need to cut down the Precedex and monitor his mentation Keep nothing by mouth no oral medications for now Back off on the Ativan use Sitter at the bedside We'll may still need to monitor this patient's course and ICU Management of the delirium tremens Electrolyte management and replace potassium Continue with thiamine Continue Seroquel once awake Continue the doxepinOnce awake Stop Xanax Heparin subcu for DVT prophylaxis Aspiration precautions Ammonia level is normal Pancreatic enzymes are not elevated We'll continue to follow
[2021-10-01] MEDS: METOPROLOL SUCCINATE (ER) 100 MG TAB.ER.24H PO SCH (13:05)
[2021-10-01] MEDS: MAGNESIUM SULFATE-D5W PMX 1 GM in DEXTROSE/WATER 1 100ML.BAG IVPB SCH ×2 (13:10→15:58)
[2021-10-01] MEDS: POTASSIUM CHLORIDE 10 MEQ in WATER FOR INJECTION 1 100ML.BAG IVPB SCH ×4 (14:24→18:38)
--- NOTE | 2021-10-01 18:31 | PN ---
PROGRESS NOTE This 51-year-old white male had a lot of uses of Ativan last night. Today he is alert. He is groggy but he is giving appropriate answers. Discussed with him to relax and behave and not be thrashing out, and maybe we can get him home soon. They have not used Ativan all day today and the Precedex is greatly decreased. His psych medications have been reordered. Psych: He is giving appropriate answers. is sluggish. He is saturating 94 on 2 L. Temperature 98.1, blood pressure 130s to 117 over 80s to 90s, respiratory rate 15-17. Cardiovascular S1, S2. Lungs clear. GI soft. Extremities with no edema. ASSESSMENT: 1. Mild hypokalemia, potassium 3.3. 2. Alcohol withdrawal. 3. Delirium tremens. 4. Bipolar. 5. Lumbar disc disease. 6. Altered mental status secondary to severe delirium tremens. He is improved today. Hopefully he will keep improving and possibly be discharged home in the next 48 hours if he continues to improve. Wean off Precedex as tolerated. MMODL / IJN: [id number] /
[2021-10-01] MEDS: QUEtiapine 100 MG TAB PO SCH (19:23)
[2021-10-01] MEDS: ATORVASTATIN 20 MG TAB PO SCH (19:40)
[2021-10-02] MEDS: SODIUM CHLORIDE 0.9% 1,000 ML IV SCH ×2 (01:33→11:50)
[2021-10-02] MEDS: DEXMEDETOMIDINE/0.9% NACL(PMX) 400 MCG in EMPTY BAG 1 BAG IV SCH ×9 (01:43→22:52)
[2021-10-02] MEDS: LORazepam 2 MG/ML INJ IV PRN ×3 (02:56→15:54)
[2021-10-02 06:18] LABS: Basophils % (A) 0 %; Eosinophils # (A) 0.2 k/uL (0-0.7); Eosinophils % (A) 3 %; HCT 39.9 % (39.0-53.0); HGB 13.6 gm/dL (13.0-17.5); Lymphocytes # (A) 1.4 k/uL (1.0-4.8); Lymphocytes % (A) 15 %; MCV 91.3 fL (80.0-100.0); Mean Platelet Volume 10.2; Monocytes # (A) 1.1 k/uL (0-1.0); Monocytes % (A) 12 %; Neutrophils # (A) 6.3 k/uL (1.3-7.7); Neutrophils % (A) 68 %; Platelet Count 131 k/uL (150-450); RBC 4.37 m/uL (4.30-5.90); RDW 13.5 % (11.5-15.5); WBC 9.2 k/uL (3.8-10.6)
[2021-10-02 06:28] LABS: ALT 89 U/L (4-49); AST 94 U/L (17-59); African American GFR (CKD) >90 (>60 ml/min/1.73 sqM); Albumin 3.7 g/dL (3.5-5.0); Alkaline Phosphatase 131 U/L (38-126); Anion Gap 9 mmol/L; Blood Urea Nitrogen 5 mg/dL (9-20); Calcium 8.3 mg/dL (8.4-10.2); Carbon Dioxide 22 mmol/L (22-30); Chloride 107 mmol/L (98-107); Glucose 118 mg/dL (74-99); Non-African American GFR(CKD) >90 (>60 ml/min/1.73 sqM); Potassium 3.7 mmol/L (3.5-5.1); Sodium 138 mmol/L (137-145); Total Bilirubin 1.1 mg/dL (0.2-1.3); Total Protein 6.4 g/dL (6.3-8.2)
[2021-10-02] MEDS ORDERED: Potassium Replacement Protocol 1 EACH MISC MISCELLANE PRN (06:57)
[2021-10-02] MEDS: HEPARIN SODIUM,PORCINE/PF 5,000 UNIT/0.5 ML SYRINGE SQ SCH ×2 (09:16→22:44)
[2021-10-02] MEDS: POTASSIUM CHLORIDE 10 MEQ in WATER FOR INJECTION 1 100ML.BAG IVPB SCH ×2 (09:16→09:22)
[2021-10-02] MEDS: NICOTINE 21MG/24HR PATCH TRANSDERM SCH (09:17)
[2021-10-02] MEDS: THIAMINE 100 MG TAB PO SCH (09:17)
[2021-10-02] MEDS: PANTOPRAZOLE 40 MG TABLET PO SCH ×2 (09:17→18:33)
[2021-10-02] MEDS: HYDROcodone/APAP 7.5-325MG 1 EACH TAB PO SCH ×3 (09:17→22:49)
[2021-10-02] MEDS: DOXEPIN 10 MG CAP PO SCH ×2 (09:18→22:45)
[2021-10-02] MEDS: METOCLOPRAMIDE 10 MG TAB PO SCH ×2 (09:18→22:47)
[2021-10-02] MEDS: METOPROLOL SUCCINATE (ER) 100 MG TAB.ER.24H PO SCH (09:18)
[2021-10-02] MEDS: DILTIAZEM CD 300 MG CAP.ER.24H PO SCH (09:18)
[2021-10-02] MEDS: cloNIDine HCL 0.2 MG TAB PO SCH ×3 (09:21→22:49)
[2021-10-02] MEDS: QUEtiapine 25 MG TAB PO SCH ×2 (09:21→22:47)
[2021-10-02] MEDS: tiZANidine 4 MG TAB PO SCH (09:22)
[2021-10-02] MEDS: chlordiazePOXIDE 25 MG CAP PO SCH ×3 (09:25→18:33)
--- NOTE | 2021-10-02 13:17 | P.PN ---
Subjective Progress Note Date: 10/02/21 52-year-old male patient, alcoholism, also known to have hypertension and hyperlipidemia, came into the emergency department on 09/25/2021 for alcohol withdrawal symptoms. The patient had alcohol drinker and he has been apparently drinking heavily over the past 2 weeks. Note that his history of alcoholism has been on many years and the patient has remained sober for around 10 years until couple of months ago when he started drinking again and he has been drinking a fifth of vodka on a daily basis. He was supposed to go to rehabilitation last week and he end up in our hospital. Patient is currently getting Ativan and I was asked to present this patient intensive care unit knowing that his level of care was quite high and the patient has been difficult to observe and manage his behavior and tremor on the medical floor. No seasonal been noted. No focal neurological deficit. He is restless. At time agitated. Noted when he came to us to the hospital, his alcohol level was 28 and his urine toxin was positive for tricyclic. His liver function tests are showing an AST of 205, ALT of 98 and the electrodes are normal with a magnesium level of 2.0. Blood sugars of 93. CBC is essentially within normal limits. For now, the patient is receiving Librium 100 mg by mouth 4 times a day, clonidine 0.2 mg 3 times a day and the patient is also on doxepin 10 mg twice a day, Ativan per CIWA protocol, Seroquel 200 mg daily at bedtime and 75 mg twice a day. He is on thiamine On today's evaluation of 09/20/2021, I'm seeing the patient for a follow-up. The patient is quite comfortable yet the patient is currently covered with Precedex which is running at 0.6 mg/kg/m. Note that the patient did not require any Ativan overnight. His oxygen at 2 L per minute nasal cannula. Despite being on Precedex, the patient is able to move himself back and forth a bedside recliner. No significant hallucinations. No agitation. No confusion. Should be able to gradually wean him off the Precedex. No other significant events overnight. No seizure activity. The patient has a white cell count 7.6 with a hemoglobin of 14.7 and a platelet count of 133. Electrodes are all within normal limits with a potassium level of 3.2 that needs to be replaced. He does have abnormal LFTs consistent with alcoholic liver disease. No focal neurological deficits. 09/29/2021, the patient is still in the intensive care unit. The patient is still having episodes of agitation requiring Ativan a total of 7 mg overnight and 2 mg this morning. Furthermore, the patient remains on Seroquel, Librium and the patient is also on Precedex at 0.7 mcg/kg per minute. He has a sitter at the bedside and the patient also has 2 point restraints. On and off is becoming agitated. He still present a Velcro withdrawal. His cardiac rhythm is sinus. No reported aspiration. He remains nothing by mouth. White cell count of 8.5 with hemoglobin 14.7. BNP is at 6 with a creatinine of 0.8 and the sodium level is at 139. LFTs were slightly abnormal as mentioned. There is consistent with alcoholic liver disease. No other issues otherwise for now. The patient will be kept in the ICU for management of delirium tremors. No seizure activity has been noted. No focal neurological deficit. He is arousable and he gets agitated once awake. 09/30/2021, the patient continues to have issues with agitation. As such, the patient has required a total of 25 mg of Ativan over the past 24 hours. He remains on Precedex at 1 g kilogram per minute.. The patient has been quite somnolent this morning. He response to stimulation. He can follow some simple commands such as using his and then moving his feet and toes. Hemodynamically stable. No signs of any seizure activity. No reported aspiration. He remains nothing by mouth. Obviously, this is a case of severe delirium tremens. Unable to wean the Precedex at this point in time. There is at sitter at the bedside. Wasn't positive edema 14, BUN is at 6 with a creatinine of 0.8 and sodium level was at 143. LFTs are also improving. Amylase and lipase are within normal limits. We will also check an ammonia level. 10/01/2021, the patient remains in the intensive care unit. Continues to have sitters to monitor his agitation. He was doing well and overnight he became very agitated and he was swinging and punching and attacking nursing staff. Based on that, he was given a total of 80 mg of Ativan overnight. This morning he is also on Precedex at 1.4 mg/kg/m very much somnolent and sleepy. Nevertheless, he is able to protect his airways. He remains of liters of oxygen by nasal cannula and a pulse ox of 97%. Unable to take his oral medications. He is also receiving normal state rate of 75 mL an hour. No seizure activity. He is having normal blood work. The white cell count of 8.5 with hemoglobin 13.6. Platelets are chronically low at 111, the patient has no elevation of the ammonia and ammonia level came back as less than 9. Normal electrolytes and the potassium needs to be replaced at 3.3, BUN is at 5 with a creatinine of 0.8 and a mild elevation of ALP and AST is a chronic alcoholism. Amylase and lipase are not elevated at this point in time. The patient remains nothing by mouth 10/02/2021, I'm seeing the patient for a follow-up. The patient is arousable. His communicating. He is still confused. Is moving all 4 extremities. Remains on Precedex at 1.1 mcg/kg per minute and overnight he has required only 8 mg of Ativan IV. No nausea. No vomiting. No diarrhea. No abdominal pain. No chest pain. No seizure activity. Moving all 4 extremity is. BUN is at 7 with a creatinine 0.80 sodium level is at 138 with a potassium level of 3.7. White cell count is at 9.2 with a hemoglobin 13.6 and the plated count of 131. No other new complaints otherwise for now. Objective - Vital Signs Vital signs: Vital Signs Temp 101.1 F H 10/02/21 08:00 Pulse 88 10/02/21 11:00 Resp 29 H 10/02/21 11:00 BP 177/109 10/02/21 11:00 Pulse Ox 95 10/02/21 11:00 Intake & Output 10/01/21 10/02/21 10/02/21 18:59 06:59 18:59 Intake Total 7904.279 1567.627 509.407 Output Total 1000 1 200 Balance 846.752 2772.627 309.407 Weight 123 kg 124 kg Intake: IV 900 900 325 Magnesium Sulfate-D5w Pmx 200 1 gm In Dextrose/Water 1 100ml.bag @ 100 mls/hr IVPB Q1H [facility] Rx#: [id number] Potassium Chloride 10 meq 400 100 In Water For Injection 1 100ml.bag @ 100 mls/hr IVPB Q1H [facility] Rx#: [id number] Sodium Chloride 0.9% 1, 300 900 225 000 ml @ 75 mls/hr IV . [id number] [facility] Rx#:[id number] Intake, IV Titration 388.352 288.627 184.407 Amount Dexmedetomidine/0.9% NaCl 388.352 288.627 184.407 (Pmx) 400 mcg In Empty Bag 1 bag @ 0.2 MCG/KG/HR 6.577 mls/hr IV .[id number] [facility] Rx#:[id number] Oral 300 850 Output: Urine 1000 1 200 Other: Voiding Method External Catheter # Voids 1 1 1 - Exam Appearance the patient is calm and comfortable likely this is on 2 L of oxygen nasal cannula, no signs of any respiratory distress, the patient is on Precedex to control his agitation. No shakiness pain no tremors. Wakes up confused and agitated and restless. Body mass index is 32.1. Head exam: Present: atraumatic, normocephalic Eye exam: Present: normal appearance, PERRL, EOMI Pupils: Present: normal accommodation ENT exam: Present: mucous membranes moist Neck exam: Present: full ROM. Absent: tenderness, meningismus, lymphadenopathy, thyromegaly Respiratory exam: Present: normal lung sounds bilaterally. Absent: respiratory distress, wheezes, rales, rhonchi, stridor Cardiovascular Exam: Present: regular rate, normal rhythm, normal heart sounds. Absent: systolic murmur, diastolic murmur, rubs, gallop, clicks GI/Abdominal exam: Present: soft, normal bowel sounds. Absent: distended, tenderness, guarding, rebound, rigid Extremities exam: Present: full ROM Back exam: Present: normal inspection. Absent: CVA tenderness (R), CVA tenderness (L), paraspinal tenderness, vertebral tenderness Neurological exam: Present: alert, oriented X3, CN II-XII intact, normal gait. Absent: motor sensory deficit Psychiatric exam: Present: normal affect, normal mood Skin exam: Present: warm, dry, intact, normal color. Absent: rash - Labs CBC & Chem 7: 10/02/21 05:43 10/02/21 05:43 Labs: Abnormal Lab Results - Last 24 Hours (Table) 10/02/21 10/02/21 Range/Units 05:43 05:43 Plt Count 131 L (150-450) k/uL Monocytes # 1.1 H (0-1.0) k/uL BUN 5 L (9-20) mg/dL Glucose 118 H (74-99) mg/dL Calcium 8.3 L (8.4-10.2) mg/dL AST 94 H (17-59) U/L ALT 89 H (4-49) U/L Alkaline Phosphatase 131 H (38-126) U/L Assessment and Plan Plan: 1 delirium tremens, currently, comfortable on Precedex drip, and the patient has required significant amount of Ativan for increased agitation overnight in combination with his psychiatric and psychotropic medications. Still requiring Precedex drip at 1.1 mcg/kg per minute. The delirium tremens selective. The patient has required less of an Ativan dosing overnight and the patient remains on Precedex. We'll try to continue the Librium and the rest of the psychotropic medication and gradually wean off the Precedex. 2 alcoholism and the patient presented to the hospital with acute alcohol intoxi cation and his alcohol level was positive for the time of admission 3 hypertension 4 hyperlipidemia 5 smoker 6 chronic anxiety, depression, bipolar disorder 7 acid reflux 8 chronic liver disease with some mild elevation of the AST compared to ALT. Normal coagulation profile Plan Wean off Precedex Monitor mental status and give oral medications Ativan only as needed Sitter at the bedside We'll may still need to monitor this patient's course and ICU Continue with thiamine Continue Seroquel once awake Continue the doxepin Once awake DVT prophylaxis Aspiration precautions Ammonia level is normal Pancreatic enzymes are not elevated We'll continue to follow
[2021-10-02] MEDS: ATORVASTATIN 20 MG TAB PO SCH (22:45)
[2021-10-02] MEDS: QUEtiapine 100 MG TAB PO SCH (22:48)
[2021-10-03] MEDS: chlordiazePOXIDE 25 MG CAP PO SCH ×5 (00:33→20:15)
[2021-10-03] MEDS: DEXMEDETOMIDINE/0.9% NACL(PMX) 400 MCG in EMPTY BAG 1 BAG IV SCH ×6 (04:26→22:43)
[2021-10-03] MEDS: LORazepam 2 MG/ML INJ IV PRN ×6 (05:14→19:04)
[2021-10-03 06:03] LABS: Basophils # (A) 0.1 k/uL (0-0.2); Basophils % (A) 1 %; Eosinophils # (A) 0.3 k/uL (0-0.7); Eosinophils % (A) 3 %; HCT 40.4 % (39.0-53.0); HGB 13.4 gm/dL (13.0-17.5); Lymphocytes # (A) 1.2 k/uL (1.0-4.8); Lymphocytes % (A) 12 %; MCH 30.7 pg (25.0-35.0); MCV 92.8 fL (80.0-100.0); Mean Platelet Volume 10.8; Monocytes # (A) 1.2 k/uL (0-1.0); Monocytes % (A) 12 %; Neutrophils # (A) 7.2 k/uL (1.3-7.7); Neutrophils % (A) 70 %; Platelet Count 159 k/uL (150-450); RBC 4.36 m/uL (4.30-5.90); RDW 13.8 % (11.5-15.5); WBC 10.2 k/uL (3.8-10.6)
[2021-10-03 06:20] LABS: African American GFR (CKD) >90 (>60 ml/min/1.73 sqM); Anion Gap 7 mmol/L; Blood Urea Nitrogen 6 mg/dL (9-20); Calcium 8.3 mg/dL (8.4-10.2); Carbon Dioxide 21 mmol/L (22-30); Chloride 108 mmol/L (98-107); Glucose 104 mg/dL (74-99); Non-African American GFR(CKD) >90 (>60 ml/min/1.73 sqM); Sodium 136 mmol/L (137-145)
[2021-10-03 06:21] LABS: Potassium 4.3 mmol/L (3.5-5.1)
[2021-10-03] MEDS: SODIUM CHLORIDE 0.9% 1,000 ML IV SCH ×3 (06:58→22:42)
[2021-10-03] MEDS: PANTOPRAZOLE 40 MG TABLET PO SCH ×2 (07:01→15:51)
[2021-10-03] MEDS: NICOTINE 21MG/24HR PATCH TRANSDERM SCH (08:30)
[2021-10-03] MEDS: METOPROLOL SUCCINATE (ER) 100 MG TAB.ER.24H PO SCH (08:30)
[2021-10-03] MEDS: DILTIAZEM CD 300 MG CAP.ER.24H PO SCH (08:30)
[2021-10-03] MEDS: HEPARIN SODIUM,PORCINE/PF 5,000 UNIT/0.5 ML SYRINGE SQ SCH ×2 (08:30→20:16)
[2021-10-03] MEDS: DOXEPIN 10 MG CAP PO SCH ×2 (08:31→20:15)
[2021-10-03] MEDS: HYDROcodone/APAP 7.5-325MG 1 EACH TAB PO SCH ×3 (08:31→20:15)
[2021-10-03] MEDS: tiZANidine 4 MG TAB PO SCH (08:31)
[2021-10-03] MEDS: QUEtiapine 25 MG TAB PO SCH ×2 (08:31→20:15)
[2021-10-03] MEDS: METOCLOPRAMIDE 10 MG TAB PO SCH ×2 (08:31→20:15)
[2021-10-03] MEDS: THIAMINE 100 MG TAB PO SCH (08:32)
[2021-10-03] MEDS: cloNIDine HCL 0.2 MG TAB PO SCH ×3 (08:32→20:16)
--- NOTE | 2021-10-03 13:29 | P.PN ---
Subjective Progress Note Date: 10/03/21 52-year-old male patient, alcoholism, also known to have hypertension and hyperlipidemia, came into the emergency department on 09/25/2021 for alcohol withdrawal symptoms. The patient had alcohol drinker and he has been apparently drinking heavily over the past 2 weeks. Note that his history of alcoholism has been on many years and the patient has remained sober for around 10 years until couple of months ago when he started drinking again and he has been drinking a fifth of vodka on a daily basis. He was supposed to go to rehabilitation last week and he end up in our hospital. Patient is currently getting Ativan and I was asked to present this patient intensive care unit knowing that his level of care was quite high and the patient has been difficult to observe and manage his behavior and tremor on the medical floor. No seasonal been noted. No focal neurological deficit. He is restless. At time agitated. Noted when he came to us to the hospital, his alcohol level was 28 and his urine toxin was positive for tricyclic. His liver function tests are showing an AST of 205, ALT of 98 and the electrodes are normal with a magnesium level of 2.0. Blood sugars of 93. CBC is essentially within normal limits. For now, the patient is receiving Librium 100 mg by mouth 4 times a day, clonidine 0.2 mg 3 times a day and the patient is also on doxepin 10 mg twice a day, Ativan per CIWA protocol, Seroquel 200 mg daily at bedtime and 75 mg twice a day. He is on thiamine On today's evaluation of 09/20/2021, I'm seeing the patient for a follow-up. The patient is quite comfortable yet the patient is currently covered with Precedex which is running at 0.6 mg/kg/m. Note that the patient did not require any Ativan overnight. His oxygen at 2 L per minute nasal cannula. Despite being on Precedex, the patient is able to move himself back and forth a bedside recliner. No significant hallucinations. No agitation. No confusion. Should be able to gradually wean him off the Precedex. No other significant events overnight. No seizure activity. The patient has a white cell count 7.6 with a hemoglobin of 14.7 and a platelet count of 133. Electrodes are all within normal limits with a potassium level of 3.2 that needs to be replaced. He does have abnormal LFTs consistent with alcoholic liver disease. No focal neurological deficits. 09/29/2021, the patient is still in the intensive care unit. The patient is still having episodes of agitation requiring Ativan a total of 7 mg overnight and 2 mg this morning. Furthermore, the patient remains on Seroquel, Librium and the patient is also on Precedex at 0.7 mcg/kg per minute. He has a sitter at the bedside and the patient also has 2 point restraints. On and off is becoming agitated. He still present a Velcro withdrawal. His cardiac rhythm is sinus. No reported aspiration. He remains nothing by mouth. White cell count of 8.5 with hemoglobin 14.7. BNP is at 6 with a creatinine of 0.8 and the sodium level is at 139. LFTs were slightly abnormal as mentioned. There is consistent with alcoholic liver disease. No other issues otherwise for now. The patient will be kept in the ICU for management of delirium tremors. No seizure activity has been noted. No focal neurological deficit. He is arousable and he gets agitated once awake. 09/30/2021, the patient continues to have issues with agitation. As such, the patient has required a total of 25 mg of Ativan over the past 24 hours. He remains on Precedex at 1 g kilogram per minute.. The patient has been quite somnolent this morning. He response to stimulation. He can follow some simple commands such as using his and then moving his feet and toes. Hemodynamically stable. No signs of any seizure activity. No reported aspiration. He remains nothing by mouth. Obviously, this is a case of severe delirium tremens. Unable to wean the Precedex at this point in time. There is at sitter at the bedside. Wasn't positive edema 14, BUN is at 6 with a creatinine of 0.8 and sodium level was at 143. LFTs are also improving. Amylase and lipase are within normal limits. We will also check an ammonia level. 10/01/2021, the patient remains in the intensive care unit. Continues to have sitters to monitor his agitation. He was doing well and overnight he became very agitated and he was swinging and punching and attacking nursing staff. Based on that, he was given a total of 80 mg of Ativan overnight. This morning he is also on Precedex at 1.4 mg/kg/m very much somnolent and sleepy. Nevertheless, he is able to protect his airways. He remains of liters of oxygen by nasal cannula and a pulse ox of 97%. Unable to take his oral medications. He is also receiving normal state rate of 75 mL an hour. No seizure activity. He is having normal blood work. The white cell count of 8.5 with hemoglobin 13.6. Platelets are chronically low at 111, the patient has no elevation of the ammonia and ammonia level came back as less than 9. Normal electrolytes and the potassium needs to be replaced at 3.3, BUN is at 5 with a creatinine of 0.8 and a mild elevation of ALP and AST is a chronic alcoholism. Amylase and lipase are not elevated at this point in time. The patient remains nothing by mouth 10/02/2021, I'm seeing the patient for a follow-up. The patient is arousable. His communicating. He is still confused. Is moving all 4 extremities. Remains on Precedex at 1.1 mcg/kg per minute and overnight he has required only 8 mg of Ativan IV. No nausea. No vomiting. No diarrhea. No abdominal pain. No chest pain. No seizure activity. Moving all 4 extremity is. BUN is at 7 with a creatinine 0.80 sodium level is at 138 with a potassium level of 3.7. White cell count is at 9.2 with a hemoglobin 13.6 and the plated count of 131. No other new complaints otherwise for now. 10/03/2021, the patient is more awake compared to yesterday. The patient remains on Precedex at 0.7 g by mouth overnight, has required less Ativan and order a 4 mg throughout the night. Still at times restless and the patient is requiring a sitter. He tries to get out of bed. He remains confused. He is able to communicate is notable for extremities. Denies having any headache. No reported aspiration. He remains nothing by mouth for now. He is able to swallow his pills and based on that the patient will be given his Librium in addition to Seroquel. The patient was also given rest of his medications that includes doxepin. He is requiring Ativan on an as-needed basis. The patient is also on Precedex at 0.7 mcg/kg per minute. The patient has a white cell count of 10.2 with a hemoglobin of 13.4. BUN is at 6 with a creatinine of 0.8 and a sodium level is at 136. Objective - Vital Signs Vital signs: Vital Signs Temp 97.7 F 10/03/21 08:00 Pulse 99 10/03/21 11:00 Resp 12 10/03/21 11:00 BP 147/91 10/03/21 11:00 Pulse Ox 92 L 10/03/21 11:00 Intake & Output 10/02/21 10/03/21 10/03/21 18:59 06:59 18:59 Intake Total 5138.320 6886.928 574.641 Output Total 1700 800 400 Balance -405.027 544.928 174.641 Weight 123.4 kg Intake: IV 850 900 375 Potassium Chloride 10 meq 100 In Water For Injection 1 100ml.bag @ 100 mls/hr IVPB Q1H [facility] Rx#: [id number] Sodium Chloride 0.9% 1, 750 900 375 000 ml @ 75 mls/hr IV . [id number] [facility] Rx#:[id number] Intake, IV Titration 444.973 194.928 199.641 Amount Dexmedetomidine/0.9% NaCl 444.973 194.928 199.641 (Pmx) 400 mcg In Empty Bag 1 bag @ 0.2 MCG/KG/HR 6.577 mls/hr IV .[id number] [facility] Rx#:[id number] Oral 250 Output: Urine 1700 800 400 Other: Voiding Method External Catheter External Catheter External Catheter # Voids 1 - Exam Appearance the patient is calm and comfortable likely this is on 2 L of oxygen nasal cannula, no signs of any respiratory distress, the patient is on Precedex to control his agitation. No shakiness pain no tremors. Wakes up confused and agitated and restless. Body mass index is 32.1. Head exam: Present: atraumatic, normocephalic Eye exam: Present: normal appearance, PERRL, EOMI Pupils: Present: normal accommodation ENT exam: Present: mucous membranes moist Neck exam: Present: full ROM. Absent: tenderness, meningismus, lymphadenopathy, thyromegaly Respiratory exam: Present: normal lung sounds bilaterally. Absent: respiratory distress, wheezes, rales, rhonchi, stridor Cardiovascular Exam: Present: regular rate, normal rhythm, normal heart sounds. Absent: systolic murmur, diastolic murmur, rubs, gallop, clicks GI/Abdominal exam: Present: soft, normal bowel sounds. Absent: distended, tenderness, guarding, rebound, rigid Extremities exam: Present: full ROM Back exam: Present: normal inspection. Absent: CVA tenderness (R), CVA tenderness (L), paraspinal tenderness, vertebral tenderness Neurological exam: Present: alert, oriented X3, CN II-XII intact, normal gait. Absent: motor sensory deficit Psychiatric exam: Present: normal affect, normal mood Skin exam: Present: warm, dry, intact, normal color. Absent: rash - Labs CBC & Chem 7: 10/03/21 05:44 10/03/21 05:44 Labs: Abnormal Lab Results - Last 24 Hours (Table) 10/03/21 10/03/21 Range/Units 05:44 05:44 Monocytes # 1.2 H (0-1.0) k/uL Sodium 136 L (137-145) mmol/L Chloride 108 H (98-107) mmol/L Carbon Dioxide 21 L (22-30) mmol/L BUN 6 L (9-20) mg/dL Glucose 104 H (74-99) mg/dL Calcium 8.3 L (8.4-10.2) mg/dL Assessment and Plan Plan: 1 delirium tremens, currently, comfortable on Precedex drip, and the patient has required significant amount of Ativan for increased agitation overnight in combination with his psychiatric and psychotropic medications. the patient is less agitated as compared to yesterday. Precedex. We'll wean off. He remains on a CIWA protocol. Ativan is still on board. The total amount of milligrams given to him yesterday was less. He is arousable. He is more awake compared to yesterday. His communicating. Following commands and answering questions appropriately. No focal neurological deficit at this point in time. 2 alcoholism and the patient presented to the hospital with acute alcohol intoxication and his alcohol level was positive for the time of admission 3 hypertension 4 hyperlipidemia 5 smoker 6 chronic anxiety, depression, bipolar disorder 7 acid reflux 8 chronic liver disease with some mild elevation of the AST compared to ALT. Normal coagulation profile Plan Wean off Precedex, currently at 0.7 mcg/kg per minute give medications orally Ativan only as needed Sitter at the bedside We'll may still need to monitor this patient's course and ICU Continue with thiamine Continue Seroquel once awake Continue the doxepin Once awake DVT prophylaxis Aspiration precautions Ammonia level is normal Consults psychiatry We'll continue to follow
--- NOTE | 2021-10-03 15:24 | PN ---
PROGRESS NOTE This white male is more awake compared to yesterday. He had some questions fairly appropriately. He is very lethargic. His Precedex is down to 0.7 mcg and he required less Ativan; only 4 mg through the night. The night before he required 8. He is still restless at times. He remains confused intermittently, but he is improving. Temperature 97.7, pulse 90 to 99, respiratory rate 12 to 14, blood pressure 140s over 90s O2 92. Psych: As mentioned above. Neuro: As mentioned above. Cardiovascular S1, S2. Lungs clear. Extremities: No significant tremor. He is pleasantly confused on psych evaluation. Labs are reviewed. Medications were reviewed. ASSESSMENT: 1. Delirium tremens. 2. Alcoholism. 3. Hypertension. 4. Dyslipidemia. 5. Gastroesophageal reflux disease. 6. Chronic liver disease. Continue to wean off Precedex and Ativan and try to get him into possible discharge or a rehab area in the next few days. MMODL / IJN: [id number] /
[2021-10-03] MEDS: QUEtiapine 100 MG TAB PO SCH (20:15)
[2021-10-03] MEDS: ATORVASTATIN 20 MG TAB PO SCH (20:15)
[2021-10-04] MEDS: DEXMEDETOMIDINE/0.9% NACL(PMX) 400 MCG in EMPTY BAG 1 BAG IV SCH ×7 (03:28→23:39)
[2021-10-04] MEDS: SODIUM CHLORIDE 0.9% 1,000 ML IV SCH ×3 (03:28→23:40)
[2021-10-04] MEDS: HEPARIN SODIUM,PORCINE/PF 5,000 UNIT/0.5 ML SYRINGE SQ SCH ×2 (09:22→20:12)
[2021-10-04] MEDS: NICOTINE 21MG/24HR PATCH TRANSDERM SCH (09:22)
[2021-10-04] MEDS: chlordiazePOXIDE 25 MG CAP PO SCH ×4 (09:22→20:11)
[2021-10-04] MEDS: METOPROLOL SUCCINATE (ER) 100 MG TAB.ER.24H PO SCH (09:23)
[2021-10-04] MEDS: tiZANidine 4 MG TAB PO SCH (09:23)
[2021-10-04] MEDS: METOCLOPRAMIDE 10 MG TAB PO SCH ×2 (09:23→20:11)
[2021-10-04] MEDS: PANTOPRAZOLE 40 MG TABLET PO SCH ×2 (09:23→16:29)
[2021-10-04] MEDS: DOXEPIN 10 MG CAP PO SCH ×2 (09:24→20:11)
[2021-10-04] MEDS: QUEtiapine 25 MG TAB PO SCH ×2 (09:24→20:11)
[2021-10-04] MEDS: DILTIAZEM CD 300 MG CAP.ER.24H PO SCH (09:24)
[2021-10-04] MEDS: HYDROcodone/APAP 7.5-325MG 1 EACH TAB PO SCH ×2 (09:24→16:28)
[2021-10-04] MEDS: THIAMINE 100 MG TAB PO SCH (09:25)
[2021-10-04] MEDS: cloNIDine HCL 0.2 MG TAB PO SCH ×3 (09:25→20:11)
[2021-10-04] MEDS: LORazepam 2 MG/ML INJ IV PRN ×3 (10:02→18:45)
[2021-10-04 10:41] LABS: Basophils # (A) 0.1 k/uL (0-0.2); Basophils % (A) 1 %; Eosinophils # (A) 0.2 k/uL (0-0.7); Eosinophils % (A) 3 %; HCT 40.1 % (39.0-53.0); HGB 13.6 gm/dL (13.0-17.5); Lymphocytes # (A) 1.3 k/uL (1.0-4.8); Lymphocytes % (A) 13 %; MCH 31.4 pg (25.0-35.0); MCHC 33.8 g/dL (31.0-37.0); MCV 92.8 fL (80.0-100.0); Mean Platelet Volume 10.2; Monocytes # (A) 1.2 k/uL (0-1.0); Monocytes % (A) 12 %; Neutrophils # (A) 6.7 k/uL (1.3-7.7); Neutrophils % (A) 69 %; Platelet Count 186 k/uL (150-450); RBC 4.32 m/uL (4.30-5.90); RDW 13.3 % (11.5-15.5); WBC 9.7 k/uL (3.8-10.6)
[2021-10-04 10:50] LABS: African American GFR (CKD) >90 (>60 ml/min/1.73 sqM); Anion Gap 12 mmol/L; Blood Urea Nitrogen 7 mg/dL (9-20); Calcium 8.6 mg/dL (8.4-10.2); Carbon Dioxide 23 mmol/L (22-30); Chloride 106 mmol/L (98-107); Glucose 110 mg/dL (74-99); Non-African American GFR(CKD) >90 (>60 ml/min/1.73 sqM); Potassium 3.8 mmol/L (3.5-5.1); Sodium 141 mmol/L (137-145)
--- NOTE | 2021-10-04 11:50 | P.CN ---
Psychiatric Consult - . Consult:: 10/04/21 11:48 IDENTIFYING DATA: Patient is a 51-year-old male who lives with his fichelita. He is admitted for delirium tremens and psychiatry's consult at for withdrawals HPI: Denies current or past depressive episodes, SI, HI, AVH. States that he takes seroquel 450 mg qhs and doxepin 10 mg bid for his anxiety and does very well when on the meds. Reports significant alcohol use - a few 6 packs at a time 2-3 days a week. Last drink a few days ago. Agreeable to going to rehab after d/c. Patient denies any suicidal or homicidal ideations intent or plan. At this time patient denies any auditory or visual hallucinations. Patient denies any flight of ideas racing thoughts and increased in goal directed behavior. PAST PSYCHIATRIC HISTORY: On seroquel and dospein for anxiety PMH: GERD, HTN, HLP ALLERGIES: as per EMR CHEMICAL DEPENDENCY HISTORY: as per HPI, no other substance use SOCIAL HISTORY: no legal issues, lives with amy MENTAL STATUS EXAM: General Appearance: 51 year old overweight male, appears older than stated age, lying in bed in hospital gown Behavior: cooperative Speech: slow rate, slurred at times Mood/Affect: "ok" constricted Suicidality/Homicidality: Patient denies having any homicidal ideation intent or plan. [Denies any suicidal ideations intent or plan] Perceptions: Patient denies any visual hallucinations [and denies any auditory hallucinations] Though content/process: [There is no evidence of any delusional thought content and thought process is linear and goal-directed.] Memory and concentration: grossly intact for the purposes of this session. Judgment and insight: impaired IMPRESSIONS: Alcohol use disorder, severe Anxiety unspecified PLAN: -continue current management of alcohol w/d -seroquel 450 mg qhs and doxpein 10 mg bid when patient is more awake (can start seroquel at 200 qhs and then increase to 450 qhs in 2-3 days) -recommended dispo: rehab, patient agreeable -psychiatry will sign off 10/04/21 11:51
--- NOTE | 2021-10-04 12:34 | P.PN ---
Subjective Progress Note Date: 10/04/21 52-year-old male patient, alcoholism, also known to have hypertension and hyperlipidemia, came into the emergency department on 09/25/2021 for alcohol withdrawal symptoms. The patient had alcohol drinker and he has been apparently drinking heavily over the past 2 weeks. Note that his history of alcoholism has been on many years and the patient has remained sober for around 10 years until couple of months ago when he started drinking again and he has been drinking a fifth of vodka on a daily basis. He was supposed to go to rehabilitation last week and he end up in our hospital. Patient is currently getting Ativan and I was asked to present this patient intensive care unit knowing that his level of care was quite high and the patient has been difficult to observe and manage his behavior and tremor on the medical floor. No seasonal been noted. No focal neurological deficit. He is restless. At time agitated. Noted when he came to us to the hospital, his alcohol level was 28 and his urine toxin was positive for tricyclic. His liver function tests are showing an AST of 205, ALT of 98 and the electrodes are normal with a magnesium level of 2.0. Blood sugars of 93. CBC is essentially within normal limits. For now, the patient is receiving Librium 100 mg by mouth 4 times a day, clonidine 0.2 mg 3 times a day and the patient is also on doxepin 10 mg twice a day, Ativan per CIWA protocol, Seroquel 200 mg daily at bedtime and 75 mg twice a day. He is on thiamine On today's evaluation of 09/20/2021, I'm seeing the patient for a follow-up. The patient is quite comfortable yet the patient is currently covered with Precedex which is running at 0.6 mg/kg/m. Note that the patient did not require any Ativan overnight. His oxygen at 2 L per minute nasal cannula. Despite being on Precedex, the patient is able to move himself back and forth a bedside recliner. No significant hallucinations. No agitation. No confusion. Should be able to gradually wean him off the Precedex. No other significant events overnight. No seizure activity. The patient has a white cell count 7.6 with a hemoglobin of 14.7 and a platelet count of 133. Electrodes are all within normal limits with a potassium level of 3.2 that needs to be replaced. He does have abnormal LFTs consistent with alcoholic liver disease. No focal neurological deficits. 09/29/2021, the patient is still in the intensive care unit. The patient is still having episodes of agitation requiring Ativan a total of 7 mg overnight and 2 mg this morning. Furthermore, the patient remains on Seroquel, Librium and the patient is also on Precedex at 0.7 mcg/kg per minute. He has a sitter at the bedside and the patient also has 2 point restraints. On and off is becoming agitated. He still present a Velcro withdrawal. His cardiac rhythm is sinus. No reported aspiration. He remains nothing by mouth. White cell count of 8.5 with hemoglobin 14.7. BNP is at 6 with a creatinine of 0.8 and the sodium level is at 139. LFTs were slightly abnormal as mentioned. There is consistent with alcoholic liver disease. No other issues otherwise for now. The patient will be kept in the ICU for management of delirium tremors. No seizure activity has been noted. No focal neurological deficit. He is arousable and he gets agitated once awake. 09/30/2021, the patient continues to have issues with agitation. As such, the patient has required a total of 25 mg of Ativan over the past 24 hours. He remains on Precedex at 1 g kilogram per minute.. The patient has been quite somnolent this morning. He response to stimulation. He can follow some simple commands such as using his and then moving his feet and toes. Hemodynamically stable. No signs of any seizure activity. No reported aspiration. He remains nothing by mouth. Obviously, this is a case of severe delirium tremens. Unable to wean the Precedex at this point in time. There is at sitter at the bedside. Wasn't positive edema 14, BUN is at 6 with a creatinine of 0.8 and sodium level was at 143. LFTs are also improving. Amylase and lipase are within normal limits. We will also check an ammonia level. 10/01/2021, the patient remains in the intensive care unit. Continues to have sitters to monitor his agitation. He was doing well and overnight he became very agitated and he was swinging and punching and attacking nursing staff. Based on that, he was given a total of 80 mg of Ativan overnight. This morning he is also on Precedex at 1.4 mg/kg/m very much somnolent and sleepy. Nevertheless, he is able to protect his airways. He remains of liters of oxygen by nasal cannula and a pulse ox of 97%. Unable to take his oral medications. He is also receiving normal state rate of 75 mL an hour. No seizure activity. He is having normal blood work. The white cell count of 8.5 with hemoglobin 13.6. Platelets are chronically low at 111, the patient has no elevation of the ammonia and ammonia level came back as less than 9. Normal electrolytes and the potassium needs to be replaced at 3.3, BUN is at 5 with a creatinine of 0.8 and a mild elevation of ALP and AST is a chronic alcoholism. Amylase and lipase are not elevated at this point in time. The patient remains nothing by mouth 10/02/2021, I'm seeing the patient for a follow-up. The patient is arousable. His communicating. He is still confused. Is moving all 4 extremities. Remains on Precedex at 1.1 mcg/kg per minute and overnight he has required only 8 mg of Ativan IV. No nausea. No vomiting. No diarrhea. No abdominal pain. No chest pain. No seizure activity. Moving all 4 extremity is. BUN is at 7 with a creatinine 0.80 sodium level is at 138 with a potassium level of 3.7. White cell count is at 9.2 with a hemoglobin 13.6 and the plated count of 131. No other new complaints otherwise for now. 10/03/2021, the patient is more awake compared to yesterday. The patient remains on Precedex at 0.7 g by mouth overnight, has required less Ativan and order a 4 mg throughout the night. Still at times restless and the patient is requiring a sitter. He tries to get out of bed. He remains confused. He is able to communicate is notable for extremities. Denies having any headache. No reported aspiration. He remains nothing by mouth for now. He is able to swallow his pills and based on that the patient will be given his Librium in addition to Seroquel. The patient was also given rest of his medications that includes doxepin. He is requiring Ativan on an as-needed basis. The patient is also on Precedex at 0.7 mcg/kg per minute. The patient has a white cell count of 10.2 with a hemoglobin of 13.4. BUN is at 6 with a creatinine of 0.8 and a sodium level is at 136. 10/04/2021, the patient is sleeping in the morning. Apparently was having hard time with sleep yesterday. He was given Ativan a total of 10 mg yesterday and is receiving since 3 AM. I was able to arouse him. He remains on Precedex at 0.6 mcg/kg per minute. Noted the patient was still having episodes of agitation and delirium. Sitters still at the bedside. He remains on oxygen at 4 L per minute nasal cannula. No signs of any respiratory distress at this point in time. No reported aspiration. No fever or chills. Blood work remains stable with a white cell count of 9.7 with a hemoglobin of 15.6 and his sodium level of 141 with a BUN of 7 and a creatinine of 0.7. Objective - Vital Signs Vital signs: Vital Signs Temp 99.2 F 10/04/21 08:00 Pulse 70 10/04/21 11:00 Resp 23 10/04/21 11:00 BP 147/104 10/04/21 11:00 Pulse Ox 95 10/04/21 11:00 Intake & Output 10/03/21 10/04/21 10/04/21 18:59 06:59 18:59 Intake Total 7984.271 2429.747 450.282 Output Total 1200 200 Balance 99.641 1408.747 250.282 Weight 122.7 kg Intake: IV 900 750 375 Sodium Chloride 0.9% 1, 900 750 375 000 ml @ 75 mls/hr IV . [id number] [facility] Rx#:[id number] Intake, IV Titration 399.641 358.747 75.282 Amount Dexmedetomidine/0.9% NaCl 399.641 283.747 75.282 (Pmx) 400 mcg In Empty Bag 1 bag @ 0.2 MCG/KG/HR 6.577 mls/hr IV .[id number] [facility] Rx#:[id number] Sodium Chloride 0.9% 1, 75 000 ml @ 75 mls/hr IV . [id number] [facility] Rx#:[id number] Oral 300 Output: Urine 1200 200 Other: Voiding Method External Catheter External Catheter External Catheter # Voids 1 1 - Exam Appearance the patient is calm and comfortable likely this is on 2 L of oxygen nasal cannula, no signs of any respiratory distress, the patient is on Precedex to control his agitation. No shakiness pain no tremors. Wakes up confused and agitated and restless. Body mass index is 32.1. Head exam: Present: atraumatic, normocephalic Eye exam: Present: normal appearance, PERRL, EOMI Pupils: Present: normal accommodation ENT exam: Present: mucous membranes moist Neck exam: Present: full ROM. Absent: tenderness, meningismus, lymphadenopathy, thyromegaly Respiratory exam: Present: normal lung sounds bilaterally. Absent: respiratory distress, wheezes, rales, rhonchi, stridor Cardiovascular Exam: Present: regular rate, normal rhythm, normal heart sounds. Absent: systolic murmur, diastolic murmur, rubs, gallop, clicks GI/Abdominal exam: Present: soft, normal bowel sounds. Absent: distended, tenderness, guarding, rebound, rigid Extremities exam: Present: full ROM Back exam: Present: normal inspection. Absent: CVA tenderness (R), CVA tenderness (L), paraspinal tenderness, vertebral tenderness Neurological exam: Present: alert, oriented X3, CN II-XII intact, normal gait. Absent: motor sensory deficit Psychiatric exam: Present: normal affect, normal mood Skin exam: Present: warm, dry, intact, normal color. Absent: rash - Labs CBC & Chem 7: 10/04/21 10:22 10/04/21 10:22 Labs: Abnormal Lab Results - Last 24 Hours (Table) 10/04/21 10/04/21 Range/Units 10:22 10:22 Monocytes # 1.2 H (0-1.0) k/uL BUN 7 L (9-20) mg/dL Glucose 110 H (74-99) mg/dL Assessment and Plan Plan: 1 delirium tremens, currently, comfortable on Precedex drip, and the patient has required significant amount of Ativan for increased agitation overnight in combination with his psychiatric and psychotropic medications. the patient is less agitated as compared to yesterday. Precedex. We'll wean off. He remains on a CIWA protocol. Ativan is still on board. This morning the patient is very much comfortable on Precedex at 0.6 mcg/kg per minute. He still requiring Ativan overnight, currently sleeping comfortably. We'll wean off the Precedex. 2 alcoholism and the patient presented to the hospital with acute alcohol intoxication and his alcohol level was positive for the time of admission 3 hypertension 4 hyperlipidemia 5 smoker 6 chronic anxiety, depression, bipolar disorder 7 acid reflux 8 chronic liver disease with some mild elevation of the AST compared to ALT. Normal coagulation profile Plan Unfortunately, the patient has taken a longer time to recover from this delirium tremens. His presentation and clinical features are still typical of DTs. Wean off Precedex, currently at 0.6mcg/kg per minute give medications orally Ativan only as needed Sitter at the bedside We'll may still need to monitor this patient's course and ICU Continue with thiamine Continue Seroquel once awake Continue the doxepin Once awake DVT prophylaxis Aspiration precautions Ammonia level is normal Consults psychiatry is still pending We'll continue to follow
[2021-10-04] MEDS: POTASSIUM CHLORIDE 10 MEQ in WATER FOR INJECTION 1 100ML.BAG IVPB SCH ×2 (16:28→17:58)
--- NOTE | 2021-10-04 16:40 | PN ---
PROGRESS NOTE Remains in ICU. He is much improved over the last 24 hours with less confusion, less Precedex. Less medications for anxiety. He was sleeping a lot this morning, having a hard time with his sleeping yesterday. We gave Ativan 10 mg yesterday, but none since 3:00 am. Pressors were cut down to 0.6 mcg/kg per minute. Still having agitation and delirium. Psych consult was obtained. BUN is 7, creatinine 0.7, hemoglobin 15.7, elevated ammonia. Blood pressure 147/104, pulse 70, respiration 18 to 22, temp 99. He is pleasantly confused, sleeping a lot. He is awakable. Cardiovascular S1-S2. Lungs clear. GI soft. He looks stated age. ASSESSMENT AND PLAN: 1. Delirium tremens. 2. CIWA. 3. Precedex, wean as tolerated. 4. Alcoholism. 5. Hypertension. 6. Dyslipidemia. 7. Delirium secondary to everything above. 8. Chronic liver disease. 9. Gastroesophageal reflux disease. 10.Anxiety. 11.Degenerative disk disease. 12.Smoker. 13.Continue his CIWA protocol. 14.Sitter. 15.Wean as tolerated. 16.Await for psych consult to see what they recommend for his depression medications. MMODL / IJN: [id number] /
[2021-10-04] MEDS ORDERED: HYDROcodone/APAP 5-325MG 1 EACH TAB PO PRN (16:41)
--- NOTE | 2021-10-04 16:56 | PN ---
PROGRESS NOTE Patient is seen in the ICU for followup. He is arousable, communicating, still a little confused. He is still remaining on low-dose Precedex 1.1 mcg/kg per minute. He still required 8 mg Ativan last night. He is moving all 4 extremities, talking soft, kind of somnolent. Potassium 3.7, sodium 138, white count 9.2, hemoglobin 13.6, platelets 131. T-max 101, pulse 88, respiratory rate 18 to 29, blood pressure 137/109, O2 95. Lungs clear. Psych somnolent. Integument: No rash, excoriations, bruising. GI soft. Cardiac regular rate and rhythm. White count 9.2, hemoglobin 13.6, platelets 131. Sodium 138, potassium 3.7. ASSESSMENT: 1. Delirium tremens. Continues on Precedex drip. Try to wean off and wean off Ativan also. 2. Alcoholism. 3. Hypertension. 4. Dyslipidemia. 5. Nicotine addiction. 6. Anxiety. 7. Gastroesophageal reflux disease. 8. Lumbar disc disease. 9. Elevated LFTs due to alcoholism. 10.Bipolar. Continue with thiamine, Seroquel, doxepin. He has been ruled out for hepatic encephalopathy. Pancreas enzymes are normal. Just wean off. Continue current treatment. Switch to oral medications, see how he does. MMODL / IJN: [id number] /
[2021-10-04] MEDS: QUEtiapine 100 MG TAB PO SCH (20:11)
[2021-10-04] MEDS: ATORVASTATIN 20 MG TAB PO SCH (20:11)
[2021-10-05] MEDS: LORazepam 2 MG/ML INJ IV PRN ×3 (00:47→21:00)
[2021-10-05] MEDS: DEXMEDETOMIDINE/0.9% NACL(PMX) 400 MCG in EMPTY BAG 1 BAG IV SCH ×7 (04:00→23:31)
[2021-10-05] MEDS: HEPARIN SODIUM,PORCINE/PF 5,000 UNIT/0.5 ML SYRINGE SQ SCH ×2 (08:45→20:39)
[2021-10-05] MEDS: NICOTINE 21MG/24HR PATCH TRANSDERM SCH (08:46)
[2021-10-05] MEDS: DOXEPIN 10 MG CAP PO SCH ×2 (08:47→20:39)
[2021-10-05] MEDS: METOCLOPRAMIDE 10 MG TAB PO SCH ×2 (08:47→20:40)
[2021-10-05] MEDS: cloNIDine HCL 0.2 MG TAB PO SCH ×3 (08:47→21:11)
[2021-10-05] MEDS: DILTIAZEM CD 300 MG CAP.ER.24H PO SCH (08:47)
[2021-10-05] MEDS: PANTOPRAZOLE 40 MG TABLET PO SCH ×2 (08:47→17:29)
[2021-10-05] MEDS: METOPROLOL SUCCINATE (ER) 100 MG TAB.ER.24H PO SCH (08:48)
[2021-10-05] MEDS: THIAMINE 100 MG TAB PO SCH (08:48)
[2021-10-05] MEDS: QUEtiapine 25 MG TAB PO SCH ×2 (08:48→20:41)
[2021-10-05] MEDS: chlordiazePOXIDE 25 MG CAP PO SCH ×4 (08:53→21:11)
[2021-10-05 10:11] LABS: Basophils # (A) 0.1 k/uL (0-0.2); Basophils % (A) 1 %; Eosinophils # (A) 0.2 k/uL (0-0.7); Eosinophils % (A) 2 %; HCT 37.1 % (39.0-53.0); HGB 12.6 gm/dL (13.0-17.5); Lymphocytes # (A) 1.1 k/uL (1.0-4.8); Lymphocytes % (A) 12 %; MCH 31.1 pg (25.0-35.0); MCV 91.5 fL (80.0-100.0); Mean Platelet Volume 10.3; Monocytes % (A) 11 %; Neutrophils # (A) 6.2 k/uL (1.3-7.7); Neutrophils % (A) 71 %; Platelet Count 208 k/uL (150-450); RBC 4.06 m/uL (4.30-5.90); RDW 13.2 % (11.5-15.5); WBC 8.7 k/uL (3.8-10.6)
[2021-10-05 10:29] LABS: ALT 47 U/L (4-49); AST 52 U/L (17-59); African American GFR (CKD) >90 (>60 ml/min/1.73 sqM); Albumin 3.5 g/dL (3.5-5.0); Alkaline Phosphatase 137 U/L (38-126); Anion Gap 11 mmol/L; Blood Urea Nitrogen 6 mg/dL (9-20); Calcium 8.5 mg/dL (8.4-10.2); Carbon Dioxide 22 mmol/L (22-30); Chloride 106 mmol/L (98-107); Glucose 118 mg/dL (74-99); Non-African American GFR(CKD) >90 (>60 ml/min/1.73 sqM); Potassium 3.7 mmol/L (3.5-5.1); Sodium 139 mmol/L (137-145); Total Bilirubin 1.1 mg/dL (0.2-1.3); Total Protein 6.5 g/dL (6.3-8.2)
--- NOTE | 2021-10-05 10:53 | P.PN ---
Subjective Progress Note Date: 10/05/21 Principal diagnosis: Alcohol withdrawal syndrome. 10/01/2021, the patient remains in the intensive care unit. Continues to have sitters to monitor his agitation. He was doing well and overnight he became very agitated and he was swinging and punching and attacking nursing staff. Based on that, he was given a total of 80 mg of Ativan overnight. This morning he is also on Precedex at 1.4 mg/kg/m very much somnolent and sleepy. Nevertheless, he is able to protect his airways. He remains of liters of oxygen by nasal cannula and a pulse ox of 97%. Unable to take his oral medications. He is also receiving normal state rate of 75 mL an hour. No seizure activity. He is having normal blood work. The white cell count of 8.5 with hemoglobin 13.6. Platelets are chronically low at 111, the patient has no elevation of the ammonia and ammonia level came back as less than 9. Normal electrolytes and the potassium needs to be replaced at 3.3, BUN is at 5 with a creatinine of 0.8 and a mild elevation of ALP and AST is a chronic alcoholism. Amylase and lipase are not elevated at this point in time. The patient remains nothing by mouth 10/02/2021, I'm seeing the patient for a follow-up. The patient is arousable. His communicating. He is still confused. Is moving all 4 extremities. Remains on Precedex at 1.1 mcg/kg per minute and overnight he has required only 8 mg of Ativan IV. No nausea. No vomiting. No diarrhea. No abdominal pain. No chest pain. No seizure activity. Moving all 4 extremity is. BUN is at 7 with a creatinine 0.80 sodium level is at 138 with a potassium level of 3.7. White cell count is at 9.2 with a hemoglobin 13.6 and the plated count of 131. No other new complaints otherwise for now. 10/03/2021, the patient is more awake compared to yesterday. The patient remains on Precedex at 0.7 g by mouth overnight, has required less Ativan and order a 4 mg throughout the night. Still at times restless and the patient is requiring a sitter. He tries to get out of bed. He remains confused. He is able to communicate is notable for extremities. Denies having any headache. No reported aspiration. He remains nothing by mouth for now. He is able to swallow his pills and based on that the patient will be given his Librium in addition to Seroquel. The patient was also given rest of his medications that includes doxepin. He is requiring Ativan on an as-needed basis. The patient is also on Precedex at 0.7 mcg/kg per minute. The patient has a white cell count of 10.2 with a hemoglobin of 13.4. BUN is at 6 with a creatinine of 0.8 and a sodium level is at 136. 10/04/2021, the patient is sleeping in the morning. Apparently was having hard time with sleep yesterday. He was given Ativan a total of 10 mg yesterday and is receiving since 3 AM. I was able to arouse him. He remains on Precedex at 0.6 mcg/kg per minute. Noted the patient was still having episodes of agitation and delirium. Sitters still at the bedside. He remains on oxygen at 4 L per minute nasal cannula. No signs of any respiratory distress at this point in time. No reported aspiration. No fever or chills. Blood work remains stable with a white cell count of 9.7 with a hemoglobin of 15.6 and his sodium level of 141 with a BUN of 7 and a creatinine of 0.7. Progress note dated 10/05/2021. This patient was admitted to the hospital on September 25. He came in with a diagnosis of alcohol withdrawal syndrome. He drinks tequila on a regular basis. He came to the intensive care unit, on September 27. He came in for alcohol withdrawal syndrome. Currently, he's on 6 L nasal cannula. He is getting saline at 75 mL an hour. He is also on dexmedetomidine at 1.6 mcg/kg/h. The patient is still very confused and disoriented. He is also getting Ativan per the [facility] protocol. White count 8.7, hemoglobin 12.6, hematocrit 37.1, and platelet count is normal sodium potassium chloride CO2 all normal. Anion gap 11, BUN 6, creatinine 0.77. A chest x-ray shows some basilar atelectasis. Objective - Vital Signs Vital signs: Vital Signs Temp 100.6 F H 10/05/21 08:00 Pulse 92 10/05/21 09:00 Resp 22 10/05/21 09:00 BP 155/90 10/05/21 09:00 Pulse Ox 95 10/05/21 09:00 Intake & Output 10/04/21 10/05/21 10/05/21 18:59 06:59 18:59 Intake Total 1211.559 858.147 353.251 Output Total 1200 900 600 Balance 11.559 -41.853 -246.749 Weight 124.3 kg Intake: IV 975 675 225 Sodium Chloride 0.9% 1, 975 675 225 000 ml @ 75 mls/hr IV . [id number] [facility] Rx#:[id number] Intake, IV Titration 236.559 183.147 128.251 Amount Dexmedetomidine/0.9% NaCl 236.559 183.147 128.251 (Pmx) 400 mcg In Empty Bag 1 bag @ 0.2 MCG/KG/HR 6.577 mls/hr IV .[id number] [facility] Rx#:[id number] Output: Urine 1200 900 600 Other: Voiding Method External Catheter External Catheter External Catheter # Voids 1 1 - Exam No acute distress, confused, can answer simple questions. Currently on 6 L nasal cannula. HEENT examination is grossly unremarkable. Neck supple. Full range of motion. No adenopathy thyromegaly or neck vein distention. Cardiovascular examination reveals regular rhythm rate. S1-S2 normal. No S3 or S4. No discernible murmur noted. Heart sounds are distant. Heart rate 92 bpm. Lungs reveal mild scattered rhonchi. No wheezes or crackles. Breath sounds equal bilaterally. Saturations are 95% on 6 L. Abdomen soft bowel sounds are heard. No masses or tenderness. Extremities are intact. No cyanosis clubbing or edema. Skin is without rash or lesion. Neurologic examination reveals the patient to be awake, and a bit confused. - Labs CBC & Chem 7: 10/05/21 09:57 10/05/21 09:57 Labs: Abnormal Lab Results - Last 24 Hours (Table) 10/04/21 10/05/21 10/05/21 Range/Units 10:22 09:57 09:57 RBC 4.06 L (4.30-5.90) m/uL Hgb 12.6 L (13.0-17.5) gm/dL Hct 37.1 L (39.0-53.0) % BUN 7 L 6 L (9-20) mg/dL Glucose 110 H 118 H (74-99) mg/dL Alkaline Phosphatase 137 H (38-126) U/L Assessment and Plan Assessment: Alcohol withdrawal syndrome in the form of delirium tremens. Chronic alcoholism. Hypertension. Hyperlipidemia. History of ongoing tobacco use. History of chronic anxiety/depression/: Disorder. History of acid reflux disease. Chronic liver disease secondary to alcohol abuse. Plan: Plan dated 10/05/2021. The patient continues on dexmedetomidine, at 0.6 mcg/kg/h. The patient's on 6 L nasal cannula. He gets Ativan only as needed. There is a sitter at the bedside. We continue with regular therapy including vitamins, and Seroquel. Patient gets GI and DVT prophylaxis. Psychiatry has been consulted. Overall prognosis remains guarded. We will continue to follow and make recommendations where appropriate. Time with Patient: Less than 30
[2021-10-05] MEDS: POTASSIUM CHLORIDE 10 MEQ in WATER FOR INJECTION 1 100ML.BAG IVPB SCH ×2 (11:03→12:16)
--- NOTE | 2021-10-05 15:58 | XR ---
EXAMINATION TYPE: XR chest 1V portable DATE OF EXAM: 10/05/2021 COMPARISON: X-ray dated 09/25/2021 HISTORY: 51-year-old male, hypoxic TECHNIQUE: Single frontal view of the chest is obtained. FINDINGS: Suspected heterogeneous patchy opacity at the medial aspect of the right lower lung zone. This could be augmented by the patient's incomplete lung expansion however underlying infection can't be exclude d, please correlate clinically. Follow-up to resolution is advised. Questionable small left pleural effusion. No pneumothorax. Increased cardiac transverse diameter whic h could be augmented by the patient's position. IMPRESSION: Atelectasis versus infection at the medial aspect of the right lower lung zone, please correlate clin ically. Follow-up to resolution is advised.
[2021-10-05] MEDS: ATORVASTATIN 20 MG TAB PO SCH (20:39)
[2021-10-05] MEDS: QUEtiapine 100 MG TAB PO SCH (20:41)
[2021-10-06] MEDS: DEXMEDETOMIDINE/0.9% NACL(PMX) 400 MCG in EMPTY BAG 1 BAG IV SCH ×8 (02:32→23:49)
[2021-10-06] MEDS: SODIUM CHLORIDE 0.9% 1,000 ML IV SCH (03:55)
[2021-10-06] MEDS: PANTOPRAZOLE 40 MG TABLET PO SCH ×2 (06:18→16:29)
[2021-10-06] MEDS: NICOTINE 21MG/24HR PATCH TRANSDERM SCH (08:51)
[2021-10-06] MEDS: HEPARIN SODIUM,PORCINE/PF 5,000 UNIT/0.5 ML SYRINGE SQ SCH ×2 (08:51→20:07)
[2021-10-06] MEDS: chlordiazePOXIDE 25 MG CAP PO SCH ×4 (08:54→22:30)
[2021-10-06] MEDS: THIAMINE 100 MG TAB PO SCH (08:55)
[2021-10-06] MEDS: DILTIAZEM CD 300 MG CAP.ER.24H PO SCH (08:55)
[2021-10-06] MEDS: cloNIDine HCL 0.2 MG TAB PO SCH ×3 (08:55→22:31)
[2021-10-06] MEDS: DOXEPIN 10 MG CAP PO SCH ×2 (08:56→20:07)
[2021-10-06] MEDS: METOCLOPRAMIDE 10 MG TAB PO SCH ×2 (08:56→20:07)
[2021-10-06] MEDS: METOPROLOL SUCCINATE (ER) 100 MG TAB.ER.24H PO SCH (08:56)
[2021-10-06] MEDS: QUEtiapine 25 MG TAB PO SCH ×2 (08:57→20:08)
--- NOTE | 2021-10-06 09:09 | P.PN ---
Subjective Progress Note Date: 10/06/21 Principal diagnosis: Alcohol withdrawal syndrome 10/01/2021, the patient remains in the intensive care unit. Continues to have sitters to monitor his agitation. He was doing well and overnight he became very agitated and he was swinging and punching and attacking nursing staff. Based on that, he was given a total of 80 mg of Ativan overnight. This morning he is also on Precedex at 1.4 mg/kg/m very much somnolent and sleepy. Nevertheless, he is able to protect his airways. He remains of liters of oxygen by nasal cannula and a pulse ox of 97%. Unable to take his oral medications. He is also receiving normal state rate of 75 mL an hour. No seizure activity. He is having normal blood work. The white cell count of 8.5 with hemoglobin 13.6. Platelets are chronically low at 111, the patient has no elevation of the ammonia and ammonia level came back as less than 9. Normal electrolytes and the potassium needs to be replaced at 3.3, BUN is at 5 with a creatinine of 0.8 and a mild elevation of ALP and AST is a chronic alcoholism. Amylase and lipase are not elevated at this point in time. The patient remains nothing by mouth 10/02/2021, I'm seeing the patient for a follow-up. The patient is arousable. His communicating. He is still confused. Is moving all 4 extremities. Remains on Precedex at 1.1 mcg/kg per minute and overnight he has required only 8 mg of Ativan IV. No nausea. No vomiting. No diarrhea. No abdominal pain. No chest pain. No seizure activity. Moving all 4 extremity is. BUN is at 7 with a creatinine 0.80 sodium level is at 138 with a potassium level of 3.7. White cell count is at 9.2 with a hemoglobin 13.6 and the plated count of 131. No other new complaints otherwise for now. 10/03/2021, the patient is more awake compared to yesterday. The patient remains on Precedex at 0.7 g by mouth overnight, has required less Ativan and order a 4 mg throughout the night. Still at times restless and the patient is requiring a sitter. He tries to get out of bed. He remains confused. He is able to communicate is notable for extremities. Denies having any headache. No reported aspiration. He remains nothing by mouth for now. He is able to swallow his pills and based on that the patient will be given his Librium in addition to Seroquel. The patient was also given rest of his medications that includes doxepin. He is requiring Ativan on an as-needed basis. The patient is also on Precedex at 0.7 mcg/kg per minute. The patient has a white cell count of 10.2 with a hemoglobin of 13.4. BUN is at 6 with a creatinine of 0.8 and a sodium level is at 136. 10/04/2021, the patient is sleeping in the morning. Apparently was having hard time with sleep yesterday. He was given Ativan a total of 10 mg yesterday and is receiving since 3 AM. I was able to arouse him. He remains on Precedex at 0.6 mcg/kg per minute. Noted the patient was still having episodes of agitation and delirium. Sitters still at the bedside. He remains on oxygen at 4 L per minute nasal cannula. No signs of any respiratory distress at this point in time. No reported aspiration. No fever or chills. Blood work remains stable with a white cell count of 9.7 with a hemoglobin of 15.6 and his sodium level of 141 with a BUN of 7 and a creatinine of 0.7. Progress note dated 10/05/2021. This patient was admitted to the hospital on September 25. He came in with a diagnosis of alcohol withdrawal syndrome. He drinks tequila on a regular basis. He came to the intensive care unit, on September 27. He came in for alcohol withdrawal syndrome. Currently, he's on 6 L nasal cannula. He is getting saline at 75 mL an hour. He is also on dexmedetomidine at 1.6 mcg/kg/h. The patient is still very confused and disoriented. He is also getting Ativan per the [facility] protocol. White count 8.7, hemoglobin 12.6, hematocrit 37.1, and platelet count is normal sodium potassium chloride CO2 all normal. Anion gap 11, BUN 6, creatinine 0.77. A chest x-ray shows some basilar atelectasis. The patient is seen today 10/06/2021 in follow-up in the intensive care unit. He is currently resting comfortably in bed. He last received Ativan 2 mg at 9 PM last night. He had been restless through the night. He is currently on Precedex again at 0.75 mcg/kg/m. He has 0.9 normal saline at 75 ML's per hour. He is maintaining good O2 saturations in the 90s on 2 L/m per nasal cannula. He is continued on Seroquel and Librium. He remains on Sinequan. Heparin for DVT prophylaxis. Protonix for GI prophylaxis. NicoDerm patch in place. No new labs today. Objective - Vital Signs Vital signs: Vital Signs Temp 97.2 F L 10/06/21 08:00 Pulse 62 10/06/21 08:00 Resp 14 10/06/21 08:00 BP 128/85 10/06/21 08:00 Pulse Ox 95 10/06/21 08:00 Intake & Output 10/05/21 10/06/21 10/06/21 18:59 06:59 18:59 Intake Total 8634.212 3699.746 191.928 Output Total 2100 0 Balance -652.163 7782.746 191.928 Weight 124.3 kg 121.5 kg Intake: IV 900 900 150 Sodium Chloride 0.9% 1, 900 900 150 000 ml @ 75 mls/hr IV . [id number] [facility] Rx#:[id number] Intake, IV Titration 561.245 426.746 41.928 Amount Dexmedetomidine/0.9% NaCl 361.245 426.746 41.928 (Pmx) 400 mcg In Empty Bag 1 bag @ 0.2 MCG/KG/HR 6.577 mls/hr IV .[id number] [facility] Rx#:[id number] Potassium Chloride 10 meq 200 In Water For Injection 1 100ml.bag @ 100 mls/hr IVPB Q1H [facility] Rx#: [id number] Oral 500 50 Output: Urine 2100 0 Other: Voiding Method External Catheter Diaper Diaper External Catheter # Voids 1 - Exam GENERAL EXAM: 51-year-old male patient, on 2 L nasal cannula, currently comfortable in no apparent distress. HEAD: Normocephalic. EYES: Normal reaction of pupils, equal size. NOSE: Clear with pink turbinates. THROAT: No erythema or exudates. NECK: No masses, no JVD. CHEST: No chest wall deformity. LUNGS: Equal air entry with faint crackles in the right.. CVS: S1 and S2 normal with no audible murmur, regular rhythm. ABDOMEN: No hepatosplenomegaly, normal bowel sounds, no guarding or rigidity. SPINE: No scoliosis or deformity SKIN: No rashes CENTRAL NERVOUS SYSTEM: No focal deficits, tone is normal in all 4 extremities. EXTREMITIES: There is no peripheral edema. No clubbing, no cyanosis. Pe ripheral pulses are intact. - Labs CBC & Chem 7: 10/05/21 09:57 10/05/21 09:57 Labs: Abnormal Lab Results - Last 24 Hours (Table) 10/05/21 10/05/21 10/05/21 Range/Units 09:57 09:57 09:57 RBC 4.06 L (4.30-5.90) m/uL Hgb 12.6 L (13.0-17.5) gm/dL Hct 37.1 L (39.0-53.0) % BUN 6 L (9-20) mg/dL Glucose 118 H (74-99) mg/dL Alkaline Phosphatase 137 H (38-126) U/L Procalcitonin 0.10 H (0.02-0.09) ng/mL Assessment and Plan Assessment: 1 Alcohol withdrawal syndrome in the form of delirium tremens. 2 Chronic alcoholism. 3 Hypertension. 4 Hyperlipidemia. 5 History of ongoing tobacco use. 6 History of chronic anxiety/depression disorder. 7 History of acid reflux disease. 8 Chronic liver disease secondary to alcohol abuse. Plan: The patient was seen and evaluated Remains on Precedex at 0.7 mcg/kg/h We will continue to titrate that down Remains in the CIWA protocol Atelectasis in the right lung base Add incentive spirometer when cooperative Continue to monitor closely here in the ICU We will continue to follow I have personally seen and examined the patient, performed the documentation and the assessment and plan as written. Number of minutes spent on the visit: 10.
--- NOTE | 2021-10-06 13:08 | PN ---
PROGRESS NOTE DATE OF SERVICE: 10/05/2021 Patient is still confused, in ICU. Pulmonary has been seeing him. He is on large amounts Ativan and Precedex; still weaning, still confused. He will have to be sent to the psych daniel possibly or to an inpatient rehab. He remains on Ativan, quite sleepy and lethargic. Continue to wean medicine as tolerated per turning lathe tender. Prognosis extremely guarded. Wait for Psychiatry's recommendations. He will need a rehab unit. MMODL / IJN: [id number] /
[2021-10-06] MEDS: LORazepam 2 MG/ML INJ IV PRN ×3 (15:33→20:20)
[2021-10-06] MEDS ORDERED: HALOPERIDOL LACTATE 5 MG/ML 1 ML VIAL IVP STA (15:47)
[2021-10-06] MEDS: ATORVASTATIN 20 MG TAB PO SCH (20:07)
[2021-10-06] MEDS: QUEtiapine 100 MG TAB PO SCH (20:08)
[2021-10-06] MEDS: ACETAMINOPHEN TAB 500 MG TAB PO PRN (22:00)
[2021-10-07] MEDS: LORazepam 2 MG/ML INJ IV PRN ×3 (01:18→23:18)
[2021-10-07] MEDS: DEXMEDETOMIDINE/0.9% NACL(PMX) 400 MCG in EMPTY BAG 1 BAG IV SCH ×8 (01:26→20:45)
[2021-10-07] MEDS: SODIUM CHLORIDE 0.9% 1,000 ML IV SCH ×2 (05:48→14:14)
[2021-10-07 06:16] LABS: Basophils # (A) 0.1 k/uL (0-0.2); Basophils % (A) 1 %; Eosinophils # (A) 0.3 k/uL (0-0.7); Eosinophils % (A) 3 %; HCT 38.9 % (39.0-53.0); HGB 12.6 gm/dL (13.0-17.5); Lymphocytes # (A) 1.4 k/uL (1.0-4.8); Lymphocytes % (A) 15 %; MCH 30.5 pg (25.0-35.0); MCHC 32.5 g/dL (31.0-37.0); MCV 93.9 fL (80.0-100.0); Mean Platelet Volume 10.1; Monocytes # (A) 1.1 k/uL (0-1.0); Monocytes % (A) 12 %; Neutrophils # (A) 6.1 k/uL (1.3-7.7); Neutrophils % (A) 66 %; Platelet Count 221 k/uL (150-450); RBC 4.15 m/uL (4.30-5.90); RDW 13.1 % (11.5-15.5); WBC 9.1 k/uL (3.8-10.6)
[2021-10-07 06:37] LABS: ALT 37 U/L (4-49); AST 54 U/L (17-59); African American GFR (CKD) >90 (>60 ml/min/1.73 sqM); Alkaline Phosphatase 119 U/L (38-126); Anion Gap 7 mmol/L; Blood Urea Nitrogen 8 mg/dL (9-20); Calcium 8.2 mg/dL (8.4-10.2); Carbon Dioxide 22 mmol/L (22-30); Chloride 112 mmol/L (98-107); Glucose 112 mg/dL (74-99); Non-African American GFR(CKD) >90 (>60 ml/min/1.73 sqM); Sodium 141 mmol/L (137-145); Total Bilirubin 0.9 mg/dL (0.2-1.3); Total Protein 5.9 g/dL (6.3-8.2)
[2021-10-07] MEDS: PANTOPRAZOLE 40 MG TABLET PO SCH ×2 (08:37→18:34)
--- NOTE | 2021-10-07 09:55 | P.PN ---
Subjective Progress Note Date: 10/07/21 Principal diagnosis: Alcohol withdrawal syndrome 10/01/2021, the patient remains in the intensive care unit. Continues to have sitters to monitor his agitation. He was doing well and overnight he became very agitated and he was swinging and punching and attacking nursing staff. Based on that, he was given a total of 80 mg of Ativan overnight. This morning he is also on Precedex at 1.4 mg/kg/m very much somnolent and sleepy. Nevertheless, he is able to protect his airways. He remains of liters of oxygen by nasal cannula and a pulse ox of 97%. Unable to take his oral medications. He is also receiving normal state rate of 75 mL an hour. No seizure activity. He is having normal blood work. The white cell count of 8.5 with hemoglobin 13.6. Platelets are chronically low at 111, the patient has no elevation of the ammonia and ammonia level came back as less than 9. Normal electrolytes and the potassium needs to be replaced at 3.3, BUN is at 5 with a creatinine of 0.8 and a mild elevation of ALP and AST is a chronic alcoholism. Amylase and lipase are not elevated at this point in time. The patient remains nothing by mouth 10/02/2021, I'm seeing the patient for a follow-up. The patient is arousable. His communicating. He is still confused. Is moving all 4 extremities. Remains on Precedex at 1.1 mcg/kg per minute and overnight he has required only 8 mg of Ativan IV. No nausea. No vomiting. No diarrhea. No abdominal pain. No chest pain. No seizure activity. Moving all 4 extremity is. BUN is at 7 with a creatinine 0.80 sodium level is at 138 with a potassium level of 3.7. White cell count is at 9.2 with a hemoglobin 13.6 and the plated count of 131. No other new complaints otherwise for now. 10/03/2021, the patient is more awake compared to yesterday. The patient remains on Precedex at 0.7 g by mouth overnight, has required less Ativan and order a 4 mg throughout the night. Still at times restless and the patient is requiring a sitter. He tries to get out of bed. He remains confused. He is able to communicate is notable for extremities. Denies having any headache. No reported aspiration. He remains nothing by mouth for now. He is able to swallow his pills and based on that the patient will be given his Librium in addition to Seroquel. The patient was also given rest of his medications that includes doxepin. He is requiring Ativan on an as-needed basis. The patient is also on Precedex at 0.7 mcg/kg per minute. The patient has a white cell count of 10.2 with a hemoglobin of 13.4. BUN is at 6 with a creatinine of 0.8 and a sodium level is at 136. 10/04/2021, the patient is sleeping in the morning. Apparently was having hard time with sleep yesterday. He was given Ativan a total of 10 mg yesterday and is receiving since 3 AM. I was able to arouse him. He remains on Precedex at 0.6 mcg/kg per minute. Noted the patient was still having episodes of agitation and delirium. Sitters still at the bedside. He remains on oxygen at 4 L per minute nasal cannula. No signs of any respiratory distress at this point in time. No reported aspiration. No fever or chills. Blood work remains stable with a white cell count of 9.7 with a hemoglobin of 15.6 and his sodium level of 141 with a BUN of 7 and a creatinine of 0.7. Progress note dated 10/05/2021. This patient was admitted to the hospital on September 25. He came in with a diagnosis of alcohol withdrawal syndrome. He drinks tequila on a regular basis. He came to the intensive care unit, on September 27. He came in for alcohol withdrawal syndrome. Currently, he's on 6 L nasal cannula. He is getting saline at 75 mL an hour. He is also on dexmedetomidine at 1.6 mcg/kg/h. The patient is still very confused and disoriented. He is also getting Ativan per the [facility] protocol. White count 8.7, hemoglobin 12.6, hematocrit 37.1, and platelet count is normal sodium potassium chloride CO2 all normal. Anion gap 11, BUN 6, creatinine 0.77. A chest x-ray shows some basilar atelectasis. The patient is seen today 10/06/2021 in follow-up in the intensive care unit. He is currently resting comfortably in bed. He last received Ativan 2 mg at 9 PM last night. He had been restless through the night. He is currently on Precedex again at 0.75 mcg/kg/m. He has 0.9 normal saline at 75 ML's per hour. He is maintaining good O2 saturations in the 90s on 2 L/m per nasal cannula. He is continued on Seroquel and Librium. He remains on Sinequan. Heparin for DVT prophylaxis. Protonix for GI prophylaxis. NicoDerm patch in place. No new labs today. The patient is seen today 10/07/2021 in follow-up in the intensive care unit. He is currently sedated and resting comfortably in bed. He was quite agitated again last night to approximate 4:00 this morning. His Precedex has been increased 1.1 mcg/kg per hour. He required 9 mg of Ativan throughout the night as well. He is having issues with fevers and had a T-max of 102.8. He did receive Tylenol. Current temperature 97.9. Follow-up blood cultures are pending. Repeat pro calcitonin pending. White count 9.1. Hemoglobin 12.6. Platelet count 221. Sodium 141. Potassium 4.0. Chloride 112. Bicarb 22. BUN 8. Creatinine 0.74. Glucose 112. AST 54. ALT 37. He is continued on Seroquel, Sinequan, Librium. Heparin for DVT prophylaxis. When he is awake and alert and cooperative he is eating his meals and taking his medications. patient sitter remains at the bedside. Objective - Vital Signs Vital signs: Vital Signs Temp 97.9 F 10/07/21 08:00 Pulse 60 10/07/21 09:00 Resp 13 10/07/21 09:00 BP 175/102 10/07/21 09:00 Pulse Ox 96 10/07/21 09:00 Intake & Output 10/06/21 10/07/21 10/07/21 18:59 06:59 18:59 Intake Total 1089.061 5937.086 317.299 Output Total 900 0 Balance 843.299 3620.086 317.299 Weight 121.5 kg Intake: IV 900 900 225 Sodium Chloride 0.9% 1, 900 900 225 000 ml @ 75 mls/hr IV . [id number] [facility] Rx#:[id number] Intake, IV Titration 189.450 463.086 92.299 Amount Dexmedetomidine/0.9% NaCl 189.450 463.086 92.299 (Pmx) 400 mcg In Empty Bag 1 bag @ 0.2 MCG/KG/HR 6.577 mls/hr IV .[id number] [facility] Rx#:[id number] Oral 525 Output: Urine 900 0 Other: Voiding Method Diaper Diaper External Catheter External Catheter # Voids 1 - Exam GENERAL EXAM: 51-year-old male patient, on 6 L nasal cannula, currently comfortable in no apparent distress. HEAD: Normocephalic. EYES: Normal reaction of pupils, equal size. NOSE: Clear with pink turbinates. THROAT: No erythema or exudates. NECK: No masses, no JVD. CHEST: No chest wall deformity. LUNGS: Equal air entry with faint crackles in the right lung base. CVS: S1 and S2 normal with no audible murmur, regular rhythm. ABDOMEN: No hepatosplenomegaly, normal bowel sounds, no guarding or rigidity. SPINE: No scoliosis or deformity SKIN: No rashes CENTRAL NERVOUS SYSTEM: No focal deficits, tone is normal in all 4 extremities. EXTREMITIES: There is no peripheral edema. No clubbing, no cyanosis. Peripheral pulses are intact. - Labs CBC & Chem 7: 10/07/21 05:44 10/07/21 05:44 Labs: Abnormal Lab Results - Last 24 Hours (Table) 10/07/21 10/07/21 Range/Units 05:44 05:44 RBC 4.15 L (4.30-5.90) m/uL Hgb 12.6 L (13.0-17.5) gm/dL Hct 38.9 L (39.0-53.0) % Monocytes # 1.1 H (0-1.0) k/uL Chloride 112 H (98-107) mmol/L BUN 8 L (9-20) mg/dL Glucose 112 H (74-99) mg/dL Calcium 8.2 L (8.4-10.2) mg/dL Total Protein 5.9 L (6.3-8.2) g/dL Albumin 3.0 L (3.5-5.0) g/dL Microbiology - Last 24 Hours (Table) 10/05/21 09:57 Blood Culture - Preliminary Blood No Growth after 24 hours 10/05/21 10:03 Blood Culture - Preliminary Blood No Growth after 24 hours Assessment and Plan Assessment: 1 Alcohol withdrawal syndrome in the form of delirium tremens. Remains on Precedex drip. Continues to require Ativan. Remains in the CIWA protocol 2 Chronic alcoholism. 3 Hypertension. 4 Hyperlipidemia. 5 History of ongoing tobacco use. 6 History of chronic anxiety/depression disorder. 7 History of acid reflux disease. 8 Chronic liver disease secondary to alcohol abuse. 9 Febrile illness, follow-up cultures and broke also tone and pending Plan: The patient was seen and evaluated Remains on Precedex at 1.1 mcg/kg/h We will continue to titrate that down Continue incentive spirometer when cooperative Monitor fever pattern, cultures pending, pro-calcitonin pending Continue to monitor closely here in the ICU We will continue to follow I have personally seen and examined the patient, performed the documentation and the assessment and plan as written. Number of minutes spent on the visit: 10.
[2021-10-07] MEDS: chlordiazePOXIDE 25 MG CAP PO SCH ×4 (10:44→21:03)
[2021-10-07] MEDS: DOXEPIN 10 MG CAP PO SCH ×2 (10:44→21:02)
[2021-10-07] MEDS: DILTIAZEM CD 300 MG CAP.ER.24H PO SCH (10:44)
[2021-10-07] MEDS: cloNIDine HCL 0.2 MG TAB PO SCH ×3 (10:44→21:03)
[2021-10-07] MEDS: QUEtiapine 25 MG TAB PO SCH ×2 (10:45→21:03)
[2021-10-07] MEDS: METOPROLOL SUCCINATE (ER) 100 MG TAB.ER.24H PO SCH (10:45)
[2021-10-07] MEDS: THIAMINE 100 MG TAB PO SCH (10:45)
[2021-10-07] MEDS: METOCLOPRAMIDE 10 MG TAB PO SCH ×2 (10:46→21:03)
[2021-10-07] MEDS: NICOTINE 21MG/24HR PATCH TRANSDERM SCH (10:47)
[2021-10-07] MEDS: HEPARIN SODIUM,PORCINE/PF 5,000 UNIT/0.5 ML SYRINGE SQ SCH ×2 (10:47→21:02)
--- NOTE | 2021-10-07 15:30 | PN ---
PROGRESS NOTE 51-year-old white male with alcohol withdrawal, long long-term withdrawal symptoms. He is on CIWA protocol and he has been getting 0.2 mg/kg per hour IV, Catapres for hypertension, Librium 100 q.i.d., multivitamins. Hemoglobin 12.6, white count is 9.1, sodium 141, potassium 4.0. Sugars are low 100s. Procalcitonin is 0.10. She has been having fevers overnight. Going to get Infectious Disease involved. Sating 95% on 4 L. Maybe had some aspiration pneumonia or something. Pulse is 58-60, temp 97.9, blood pressure 150s to 170s over 90s. Psych: He is obtunded. Cardiovascular: S1-S2. Lungs: Scattered rhonchi and wheeze. ASSESSMENT: 1. Fever. 2. Elevated procalcitonin. 3. We will have to rule out aspiration pneumonia versus other infections. I will get Dr. Chaidez to see him. They are going to try to continue to wean him off . Prognosis is guarded. Continue current treatment. May be fevers due to delirium tremens, maybe not. We will continue current treatments per Dr. Allison's recommendations. Please see further orders. MMODL / IJN: [id number] /
[2021-10-07] MEDS: ATORVASTATIN 20 MG TAB PO SCH (21:02)
[2021-10-07] MEDS: QUEtiapine 100 MG TAB PO SCH (21:03)
--- NOTE | 2021-10-07 23:26 | P.CONS ---
History of Present Illness - Reason for Consult Consult date: 10/07/21 Fever Requesting physician: Jabari Sorto - Chief Complaint Fever x few days - History of Present Illness Patient is a 51-year-old male presented to the hospital about 2 weeks ago on 09/25/2021 for evaluation of alcohol withdrawal requesting assistance in becoming sober and prevention of alcohol withdrawal seizure in this patient who did have a significant history of drinking patient has been admitted to the hospital is currently in the ICU and has been evaluated by neurology pulmonary and psych services patient was afebrile on admission however he started spiking fever on 10/02/2021 and has been spiking daily temperature since then infectious disease was consulted last evening for management of this fever patient is currently hemodynamically stable other blood pressure on the high side and the patient is on nasal cannula oxygen patient was in four-point restraint at the time of my evaluation and was unable to provide any history no history of any seizure vomiting or diarrhea reported by nursing staff patient currently do not have any Mendez catheter and had no problem with his IV access site patient did have normal white count and no left shift patient did have a liver enzyme which has normalized procalcitonin is only 0.12, patient did have blood culture on admission which has been negative last chest x-ray completed on 10/05/2021 shows atelectasis in the medial aspect of the right lower lung Review of Systems Positive points has been mentioned in HPI complete review could not be obtained because of his underlying mental status Past Medical History Past Medical History: GERD/Reflux, Hyperlipidemia, Hypertension Additional Past Medical History / Comment(s): Hx of pancreatitis. TONGUE LESION History of Any Multi-Drug Resistant Organisms: None Reported Past Surgical History: Cholecystectomy, Hernia Repair Additional Past Surgical History / Comment(s): SX ON NOSE TEEN FOR FX NOSE. COLONOSCOPY/EGD Past Anesthesia/Blood Transfusion Reactions: No Reported Reaction Past Psychological History: Anxiety, Bipolar, Depression Smoking Status: Current every day smoker Past Alcohol Use History: Abuse, Daily Additional Past Alcohol Use History / Comment(s): SMOKES 1 PPD SINCE AGE 11 Past Drug Use History: None Reported - Past Family History Mother Family Medical History: No Reported History Father Family Medical History: Pneumonia Medications and Allergies Home Medications Medication Instructions Recorded Confirmed Type Simvastatin 40 mg PO HS 03/10/16 09/25/21 History cloNIDine HCL [Catapres] 0.2 mg PO TID 03/10/16 09/25/21 History Metoprolol Succinate [Toprol XL] 200 mg PO DAILY 06/30/18 09/25/21 History Doxepin [SINEquan] 10 mg PO BID 04/30/21 09/25/21 History Metoclopramide [Reglan] 10 mg PO BID 04/30/21 09/25/21 History Sildenafil Citrate 50 mg PO DAILY PRN 04/30/21 09/25/21 History tiZANidine HCL 4 mg PO DAILY 04/30/21 09/25/21 History ALPRAZolam [Xanax] 1 mg PO BID 09/22/21 09/25/21 History HYDROcodone/APAP 7.5-325MG [[place] 1 tab PO TID 09/22/21 09/25/21 History 7.5-325] Omeprazole 40 mg PO BID 09/22/21 09/25/21 History QUEtiapine FUMARATE [SEROquel] 300 mg PO HS 09/22/21 09/25/21 History QUEtiapine XR [SEROquel XR] 150 mg PO HS 09/22/21 09/25/21 History Diltiazem Cd [Cardizem CD] 300 mg PO DAILY 09/25/21 09/25/21 History Allergies Allergy/AdvReac Type Severity Reaction Status Date / Time No Known Allergies Allergy Verified 09/25/21 17:41 Physical Exam Vitals: Vital Signs Temp Pulse Pulse Resp BP Pulse Ox 10/07/21 11:00 60 14 164/98 94 L 10/07/21 10:00 60 14 162/96 97 10/07/21 09:00 60 13 175/102 96 10/07/21 08:00 97.9 F 57 L 13 142/88 95 10/07/21 07:00 60 13 164/102 96 10/07/21 06:00 75 21 172/100 85 L 10/07/21 05:00 62 14 137/84 94 L 10/07/21 04:00 65 17 137/88 93 L 10/07/21 03:00 69 35 H 139/84 94 L 10/07/21 02:00 80 143/84 95 10/07/21 01:00 78 152/92 96 10/07/21 00:00 98.2 F 83 149/89 94 L 10/06/21 23:38 90 93 L 10/06/21 23:00 92 138/88 93 L 10/06/21 22:00 89 146/97 92 L 10/06/21 21:00 90 19 155/96 93 L 10/06/21 20:00 102.8 F H 99 66 22 148/96 92 L 10/06/21 19:00 112 H 20 134/94 90 L 10/06/21 18:00 96 24 137/96 92 L 10/06/21 17:00 107 H 28 H 144/99 92 L 10/06/21 16:00 102 F H 107 H 66 24 143/87 10/06/21 15:00 98 22 128/85 95 10/06/21 14:00 105 H 26 H 122/86 92 L 10/06/21 13:00 83 22 111/72 94 L 10/06/21 12:00 98.7 F 79 27 H 132/88 93 L 10/06/21 11:47 66 Intake and Output 10/06/21 10/07/21 10/07/21 22:59 06:59 14:59 Intake Total 1193.102 899.397 475.000 Output Total 0 Balance 1193.102 899.397 475.000 Intake: IV 600 600 375 Sodium Chloride 0.9% 1, 600 600 375 000 ml @ 75 mls/hr IV . [id number] [facility] Rx#:[id number] Intake, IV Titration 268.102 299.397 100.000 Amount Dexmedetomidine/0.9% NaCl 268.102 299.397 100.000 (Pmx) 400 mcg In Empty Bag 1 bag @ 0.2 MCG/KG/HR 6.577 mls/hr IV .[id number] [facility] Rx#:[id number] Oral 325 Output: Urine 0 Other: Voiding Method Diaper Diaper External Catheter External Catheter # Voids 1 1 Weight 121.5 kg GENERAL DESCRIPTION: Middle-aged male lying in bed, no distress. No tachypnea or accessory muscle of respiration use. HEENT: Shows Pallor , no scleral icterus. Oral mucous membrane is dry. No pharyngeal erythema or thrush NECK: Trachea central, no thyromegaly. LUNGS: Unlabored breathing. Decreased breath sounds at base No wheeze or crackle. HEART: S1, S2, regular rate and rhythm. No loud murmur ABDOMEN: Soft, no tenderness , guarding or rigidity, no organomegaly EXTREMITIES: No edema of feet. SKIN: No rash, no masses palpable. NEUROLOGICAL: The patient is lethargic orientation could not be determined Results CBC & Chem 7: 10/07/21 05:44 10/07/21 05:44 Labs: Abnormal Lab Results - Last 24 Hours (Table) 10/07/21 10/07/21 Range/Units 05:44 05:44 RBC 4.15 L (4.30-5.90) m/uL Hgb 12.6 L (13.0-17.5) gm/dL Hct 38.9 L (39.0-53.0) % Monocytes # 1.1 H (0-1.0) k/uL Chloride 112 H (98-107) mmol/L BUN 8 L (9-20) mg/dL Glucose 112 H (74-99) mg/dL Calcium 8.2 L (8.4-10.2) mg/dL Total Protein 5.9 L (6.3-8.2) g/dL Albumin 3.0 L (3.5-5.0) g/dL Microbiology - Last 24 Hours (Table) 10/05/21 09:57 Blood Culture - Preliminary Blood No Growth after 24 hours 10/05/21 10:03 Blood Culture - Preliminary Blood No Growth after 24 hours Assessment and Plan (1) Fever Current Visit: Yes Status: Acute Code(s): R50.9 - FEVER, UNSPECIFIED SNOMED Code(s): 709692772 Plan: 1patient is a 51-year male presented to hospital about 2 weeks ago requesting help with becoming sober and preventing alcohol withdrawal seizure in this patient has been running fever for the last 5 days however the patient did have normal white count chest x-ray showing some atelectasis patient does not look toxic with a question of possible fever related to DTs as no obvious focus of infection. 2blood cultures will be repeated and we will repeat a chest x-ray. For now we will monitor the patient closely off antibiotic therapy We will follow on clinical condition and cultures to further adjust medication if needed Thank you for this consultation will follow this patient along with you Time with Patient: Greater than 30
[2021-10-08] MEDS: DEXMEDETOMIDINE/0.9% NACL(PMX) 400 MCG in EMPTY BAG 1 BAG IV SCH ×6 (01:49→21:17)
[2021-10-08] MEDS: ACETAMINOPHEN TAB 500 MG TAB PO PRN ×2 (05:59→15:40)
[2021-10-08 06:23] LABS: Basophils # (A) 0.1 k/uL (0-0.2); Basophils % (A) 1 %; Eosinophils # (A) 0.2 k/uL (0-0.7); Eosinophils % (A) 2 %; HCT 37.8 % (39.0-53.0); HGB 12.3 gm/dL (13.0-17.5); Lymphocytes # (A) 1.4 k/uL (1.0-4.8); Lymphocytes % (A) 15 %; MCH 30.1 pg (25.0-35.0); MCHC 32.7 g/dL (31.0-37.0); MCV 92.2 fL (80.0-100.0); Mean Platelet Volume 9.8; Monocytes # (A) 0.7 k/uL (0-1.0); Monocytes % (A) 8 %; Neutrophils # (A) 6.4 k/uL (1.3-7.7); Neutrophils % (A) 70 %; Platelet Count 282 k/uL (150-450); RDW 13.7 % (11.5-15.5); WBC 9.1 k/uL (3.8-10.6)
[2021-10-08 07:00] LABS: African American GFR (CKD) >90 (>60 ml/min/1.73 sqM); Anion Gap 9 mmol/L; Blood Urea Nitrogen 8 mg/dL (9-20); Calcium 8.2 mg/dL (8.4-10.2); Carbon Dioxide 23 mmol/L (22-30); Chloride 108 mmol/L (98-107); Glucose 97 mg/dL (74-99); Non-African American GFR(CKD) >90 (>60 ml/min/1.73 sqM); Potassium 3.5 mmol/L (3.5-5.1); Sodium 140 mmol/L (137-145)
[2021-10-08] MEDS: PANTOPRAZOLE 40 MG TABLET PO SCH ×2 (07:06→17:30)
--- NOTE | 2021-10-08 08:06 | XR ---
EXAMINATION TYPE: XR chest 1V DATE OF EXAM: 10/08/2021 COMPARISON: X-ray dated 10/05/2021 HISTORY: Fever TECHNIQUE: Single frontal view of the chest is obtained. FINDINGS: Grossly stable heterogeneous opacity at the medial aspect of the right lower lung zone. Questionable left retrocardiac patchy opacity, slightly more prominent compared to the previous x-ray. This could represent chronic atelectasis however underlying infection can't be excluded, please correlate clinic ally. Congested pulmonary vasculature with prominent interstitial lung markings, probably related to the pa tient's position however mild pulmonary edema can't be excluded. Grossly unremarkable remainder of th e lungs. Small left pleural effusion. Unchanged cardiac cardiomediastinal silhouette and bony thoraci c cage. IMPRESSION: Mild interval changes as described above.
[2021-10-08] MEDS: PIPERACILLIN-TAZOBACTAM 3.375 GM in SODIUM CHLORIDE 0.9% 100 ML IVPB SCH ×3 (08:27→23:10)
[2021-10-08] MEDS: chlordiazePOXIDE 25 MG CAP PO SCH ×4 (08:50→21:19)
[2021-10-08] MEDS: SODIUM CHLORIDE 0.9% 1,000 ML IV SCH ×3 (08:51→22:09)
[2021-10-08] MEDS: cloNIDine HCL 0.2 MG TAB PO SCH ×3 (08:52→23:07)
[2021-10-08] MEDS: DOXEPIN 10 MG CAP PO SCH (08:52)
[2021-10-08] MEDS: HEPARIN SODIUM,PORCINE/PF 5,000 UNIT/0.5 ML SYRINGE SQ SCH ×2 (08:52→19:59)
[2021-10-08] MEDS: METOCLOPRAMIDE 10 MG TAB PO SCH ×2 (08:52→20:00)
[2021-10-08] MEDS: DILTIAZEM CD 300 MG CAP.ER.24H PO SCH (08:52)
[2021-10-08] MEDS: THIAMINE 100 MG TAB PO SCH (08:53)
[2021-10-08] MEDS: QUEtiapine 100 MG TAB PO SCH ×3 (08:53→20:02)
[2021-10-08] MEDS: NICOTINE 21MG/24HR PATCH TRANSDERM SCH (08:53)
[2021-10-08] MEDS: METOPROLOL SUCCINATE (ER) 100 MG TAB.ER.24H PO SCH (08:53)
--- NOTE | 2021-10-08 08:53 | P.PN ---
Subjective Progress Note Date: 10/08/21 Principal diagnosis: Alcohol withdrawal syndrome 10/01/2021, the patient remains in the intensive care unit. Continues to have sitters to monitor his agitation. He was doing well and overnight he became very agitated and he was swinging and punching and attacking nursing staff. Based on that, he was given a total of 80 mg of Ativan overnight. This morning he is also on Precedex at 1.4 mg/kg/m very much somnolent and sleepy. Nevertheless, he is able to protect his airways. He remains of liters of oxygen by nasal cannula and a pulse ox of 97%. Unable to take his oral medications. He is also receiving normal state rate of 75 mL an hour. No seizure activity. He is having normal blood work. The white cell count of 8.5 with hemoglobin 13.6. Platelets are chronically low at 111, the patient has no elevation of the ammonia and ammonia level came back as less than 9. Normal electrolytes and the potassium needs to be replaced at 3.3, BUN is at 5 with a creatinine of 0.8 and a mild elevation of ALP and AST is a chronic alcoholism. Amylase and lipase are not elevated at this point in time. The patient remains nothing by mouth 10/02/2021, I'm seeing the patient for a follow-up. The patient is arousable. His communicating. He is still confused. Is moving all 4 extremities. Remains on Precedex at 1.1 mcg/kg per minute and overnight he has required only 8 mg of Ativan IV. No nausea. No vomiting. No diarrhea. No abdominal pain. No chest pain. No seizure activity. Moving all 4 extremity is. BUN is at 7 with a creatinine 0.80 sodium level is at 138 with a potassium level of 3.7. White cell count is at 9.2 with a hemoglobin 13.6 and the plated count of 131. No other new complaints otherwise for now. 10/03/2021, the patient is more awake compared to yesterday. The patient remains on Precedex at 0.7 g by mouth overnight, has required less Ativan and order a 4 mg throughout the night. Still at times restless and the patient is requiring a sitter. He tries to get out of bed. He remains confused. He is able to communicate is notable for extremities. Denies having any headache. No reported aspiration. He remains nothing by mouth for now. He is able to swallow his pills and based on that the patient will be given his Librium in addition to Seroquel. The patient was also given rest of his medications that includes doxepin. He is requiring Ativan on an as-needed basis. The patient is also on Precedex at 0.7 mcg/kg per minute. The patient has a white cell count of 10.2 with a hemoglobin of 13.4. BUN is at 6 with a creatinine of 0.8 and a sodium level is at 136. 10/04/2021, the patient is sleeping in the morning. Apparently was having hard time with sleep yesterday. He was given Ativan a total of 10 mg yesterday and is receiving since 3 AM. I was able to arouse him. He remains on Precedex at 0.6 mcg/kg per minute. Noted the patient was still having episodes of agitation and delirium. Sitters still at the bedside. He remains on oxygen at 4 L per minute nasal cannula. No signs of any respiratory distress at this point in time. No reported aspiration. No fever or chills. Blood work remains stable with a white cell count of 9.7 with a hemoglobin of 15.6 and his sodium level of 141 with a BUN of 7 and a creatinine of 0.7. Progress note dated 10/05/2021. This patient was admitted to the hospital on September 25. He came in with a diagnosis of alcohol withdrawal syndrome. He drinks tequila on a regular basis. He came to the intensive care unit, on September 27. He came in for alcohol withdrawal syndrome. Currently, he's on 6 L nasal cannula. He is getting saline at 75 mL an hour. He is also on dexmedetomidine at 1.6 mcg/kg/h. The patient is still very confused and disoriented. He is also getting Ativan per the [facility] protocol. White count 8.7, hemoglobin 12.6, hematocrit 37.1, and platelet count is normal sodium potassium chloride CO2 all normal. Anion gap 11, BUN 6, creatinine 0.77. A chest x-ray shows some basilar atelectasis. The patient is seen today 10/06/2021 in follow-up in the intensive care unit. He is currently resting comfortably in bed. He last received Ativan 2 mg at 9 PM last night. He had been restless through the night. He is currently on Precedex again at 0.75 mcg/kg/m. He has 0.9 normal saline at 75 ML's per hour. He is maintaining good O2 saturations in the 90s on 2 L/m per nasal cannula. He is continued on Seroquel and Librium. He remains on Sinequan. Heparin for DVT prophylaxis. Protonix for GI prophylaxis. NicoDerm patch in place. No new labs today. The patient is seen today 10/07/2021 in follow-up in the intensive care unit. He is currently sedated and resting comfortably in bed. He was quite agitated again last night to approximate 4:00 this morning. His Precedex has been increased 1.1 mcg/kg per hour. He required 9 mg of Ativan throughout the night as well. He is having issues with fevers and had a T-max of 102.8. He did receive Tylenol. Current temperature 97.9. Follow-up blood cultures are pending. Repeat pro calcitonin pending. White count 9.1. Hemoglobin 12.6. Platelet count 221. Sodium 141. Potassium 4.0. Chloride 112. Bicarb 22. BUN 8. Creatinine 0.74. Glucose 112. AST 54. ALT 37. He is continued on Seroquel, Sinequan, Librium. Heparin for DVT prophylaxis. When he is awake and alert and cooperative he is eating his meals and taking his medications. date night sitter remains at the bedside. The patient is seen today 10/08/2021 in follow-up in the intensive care unit. He is currently resting quietly in bed. He is in restraints still. date night sitter at the bedside. He remains on Precedex at 0.8 mcg/kg per hour. Normal saline at 75 ML's per hour. He is on 4 L nasal cannula. Chest x-ray continues to show some right lower lobe infiltrate. Still with fevers at 101.1. Initial blood cultures revealed no growth. Follow-up blood cultures are pending. White count 9.1. Hemoglobin 12.3. Sodium 140. Potassium 2.5. BUN 8. Creatinine 0.76. The patient becomes quite restless and agitated when Precedex his weaning down. He did receive only 2 mg of Ativan through the night. He is on Seroquel 300 mg at bedtime along with 75 mg twice a day currently. He is also on Librium and Sinequan. He remains in the [facility] protocol. Objective - Vital Signs Vital signs: Vital Signs Temp 101.1 F H 10/08/21 04:00 Pulse 88 10/08/21 07:00 Resp 32 H 10/08/21 07:00 BP 142/89 10/08/21 07:00 Pulse Ox 94 L 10/08/21 07:00 Intake & Output 10/07/21 10/08/21 10/08/21 18:59 06:59 18:59 Intake Total 4585.387 0964.033 90.292 Output Total 700 Balance 259.363 9920.033 90.292 Weight 121.5 kg Intake: IV 900 900 75 Sodium Chloride 0.9% 1, 900 900 75 000 ml @ 75 mls/hr IV . [id number] [facility] Rx#:[id number] Intake, IV Titration 300.000 371.033 15.292 Amount Dexmedetomidine/0.9% NaCl 300.000 371.033 15.292 (Pmx) 400 mcg In Empty Bag 1 bag @ 0.2 MCG/KG/HR 6.577 mls/hr IV .[id number] [facility] Rx#:[id number] Oral 150 Output: Urine 700 Other: Voiding Method External Catheter External Catheter # Voids 1 - Exam GENERAL EXAM: 51-year-old male patient, arousable, restless at times, on 4 L nasal cannula, currently comfortable in no apparent distress. HEAD: Normocephalic. EYES: Normal reaction of pupils, equal size. NOSE: Clear with pink turbinates. THROAT: No erythema or exudates. NECK: No masses, no JVD. CHEST: No chest wall deformity. LUNGS: Equal air entry with crackles in the right lung base. CVS: S1 and S2 normal with no audible murmur, regular rhythm. ABDOMEN: No hepatosplenomegaly, normal bowel sounds, no guarding or rigidity. SPINE: No scoliosis or deformity SKIN: No rashes CENTRAL NERVOUS SYSTEM: No focal deficits, tone is normal in all 4 extremities. EXTREMITIES: There is no peripheral edema. No clubbing, no cyanosis. Peripheral pulses are intact. - Labs CBC & Chem 7: 10/08/21 05:44 10/08/21 05:44 Labs: Abnormal Lab Results - Last 24 Hours (Table) 10/07/21 10/08/21 10/08/21 Range/Units 05:44 05:44 05:44 RBC 4.10 L (4.30-5.90) m/uL Hgb 12.3 L (13.0-17.5) gm/dL Hct 37.8 L (39.0-53.0) % Chloride 108 H (98-107) mmol/L BUN 8 L (9-20) mg/dL Calcium 8.2 L (8.4-10.2) mg/dL Procalcitonin 0.12 H (0.02-0.09) ng/mL Microbiology - Last 24 Hours (Table) 10/07/21 05:44 Blood Culture - Preliminary Blood No Growth after 24 hours 10/05/21 09:57 Blood Culture - Preliminary Blood No Growth after 48 hours 10/05/21 10:03 Blood Culture - Preliminary Blood No Growth after 48 hours Assessment and Plan Assessment: 1 Alcohol withdrawal syndrome in the form of delirium tremens. Remains on Precedex drip. Continues to require Ativan. Remains in the [facility] protocol 2 Chronic alcoholism. 3 Hypertension. 4 Hyperlipidemia. 5 History of ongoing tobacco use. 6 History of chronic anxiety/depression disorder. 7 History of acid reflux disease. 8 Chronic liver disease secondary to alcohol abuse. 9 Febrile illness, follow-up cultures pending and procalcitonin 0.12. 10 Right lower lobe infiltrate/atelectasis, on Zosyn Plan: The patient was seen and evaluated Chest x-ray and labs reviewed We will add Zosyn Titrate down the FiO2 as tolerated Utilizing incentive spirometer was cooperative Remains on Precedex at 0.8 mcg/kg/h, attempt to wean Request reevaluation from psychiatric services Continue to monitor closely here in the ICU date night sitter at the bedside We will continue to follow I have personally seen and examined the patient, performed the documentation and the assessment and plan as written. Number of minutes spent on the visit: 10.
[2021-10-08 09:01] LABS: C Reactive Protein 29.1 mg/dL (<1.0)
--- NOTE | 2021-10-08 09:08 | P.PN ---
Subjective Progress Note Date: 10/07/21 Patient was seen for a follow-up. Patient initially seen by Dr. Shawn Allison. Please refer to his note for details. Patient has history of alcoholism. Patient is currently on Precedex at 1 mcg/kg/h. Patient is on 4 L nasal cannula. Patient was quite agitated last night. When sedation is decreased, patient gets agitated. Patient somnolent at this time. Still encephalopathic. Objective - Vital Signs Vital signs: Vital Signs Temp 101.1 F H 10/08/21 04:00 Pulse 88 10/08/21 07:00 Resp 32 H 10/08/21 07:00 BP 142/89 10/08/21 07:00 Pulse Ox 94 L 10/08/21 07:00 Intake & Output 10/07/21 10/08/21 10/08/21 18:59 06:59 18:59 Intake Total 6182.798 5491.033 90.292 Output Total 700 Balance 071.761 5873.033 90.292 Weight 121.5 kg Intake: IV 900 900 75 Sodium Chloride 0.9% 1, 900 900 75 000 ml @ 75 mls/hr IV . [id number] [facility] Rx#:[id number] Intake, IV Titration 300.000 371.033 15.292 Amount Dexmedetomidine/0.9% NaCl 300.000 371.033 15.292 (Pmx) 400 mcg In Empty Bag 1 bag @ 0.2 MCG/KG/HR 6.577 mls/hr IV .[id number] [facility] Rx#:[id number] Oral 150 Output: Urine 700 Other: Voiding Method External Catheter External Catheter # Voids 1 - Exam Patient is sedated with Precedex 1 mg infusion. Patient is obtunded. He does open his eyes slightly. Patient's head is turned to the left. Pupils are equal, round and reacting to light, gaze is midline. His visual mendez could not be tested. Extraocular muscles could not be tested. Face appears symmetric. Reflexes are 1+ in the upper limbs, 2 at the knees 1 ankles and plantars are flat bilaterally. Cerebellar functions, sensations and gait cannot be tested. - Labs CBC & Chem 7: 10/08/21 05:44 10/08/21 05:44 Labs: Abnormal Lab Results - Last 24 Hours (Table) 10/07/21 10/08/21 10/08/21 Range/Units 05:44 05:44 05:44 RBC 4.10 L (4.30-5.90) m/uL Hgb 12.3 L (13.0-17.5) gm/dL Hct 37.8 L (39.0-53.0) % Chloride 108 H (98-107) mmol/L BUN 8 L (9-20) mg/dL Calcium 8.2 L (8.4-10.2) mg/dL Procalcitonin 0.12 H (0.02-0.09) ng/mL Microbiology - Last 24 Hours (Table) 10/07/21 05:44 Blood Culture - Preliminary Blood No Growth after 24 hours 10/05/21 09:57 Blood Culture - Preliminary Blood No Growth after 48 hours 10/05/21 10:03 Blood Culture - Preliminary Blood No Growth after 48 hours Assessment and Plan Assessment: 51-year-old male came with alcohol intoxication, now with alcohol withdrawal syndrome with delirium tremens. History of Hypertension. Hyperlipidemia History of significant alcohol use in which she was sober for 10 years but relapsed in the last few months Tobacco use Chronic liver disease Right lower lobe infiltrate. Plan: Continue thiamine. We'll defer alcohol withdrawal management to the primary team Patient is getting high temperatures. ID consulted. Recommend the patient to pursue with alcohol anonymous rehab or other rehab that would assist him on cessation of alcohol. Neurology will follow sporadically. Please call neurology if any other concerns.
[2021-10-08] MEDS: POTASSIUM CHLORIDE 10 MEQ in WATER FOR INJECTION 1 100ML.BAG IVPB SCH ×4 (11:22→14:24)
--- NOTE | 2021-10-08 11:55 | P.CRDCN ---
History of Present Illness Consult date: 10/08/21 History of present illness: HISTORY OF PRESENTING ILLNESS This is a pleasant 51-year-old male past medical history significant for hypertension and hyperlipidemia admitted with alcohol withdrawal symptoms. He follows in the office with Dr. Morejon. We have been asked to see in consultation for possible atrial fibrillation. There is no A. fib noted on the monitor last night or in EKG showing atrial fibrillation. Patient is on Catapres Toprol and Cardizem for blood pressure control. His blood pressure is elevated when he is agitated systolically in the 170s to 140s. He also becomes febrile with agitation. He was started on Zosyn today. Patient remains on P recedex. Psych is been consulted to evaluate other options to DC the Precedex. Once patient relaxes and has taken his morning medication blood pressure is well-controlled 124/79. Will obtain a 2-D echocardiogram. Patient remains sinus rhythm on the monitor. Chest x-ray shows small left pleural effusion He is currently on Catapres, Lipitor, Cardizem, Toprol Review of Systems REVIEW OF SYSTEMS At the time of my exam patient is resting comfortably in bed a sleep: CONSTITUTIONAL: Denies fever or chills. EYES: Negative for vision changes ENT: Negative for hearing loss CARDIOVASCULAR: Denies chest pain, shortness of breath, diaphoresis, orthopnea, PND or palpitations. VASCULAR: Denies edema RESPIRATORY: Denies cough. GASTROINTESTINAL: Denies abdominal pain, diarrhea, constipation, nausea or vomiting. MUSCULOSKELETAL: Denies myalgias. NEUROLOGIC: Denies numbness, tingling, headache or weakness. ENDOCRINE: Denies fatigue, weight change, polydipsia or polyurina. GENITOURINARY: Denies burning, hematuria or urgency with micturation. HEMATOLOGIC: Denies history of anemia or bleeding. DERMATOLOGY: Denies rash or skin sores PSYCH: Patient calls out for people who are not there. Past Medical History Past Medical History: GERD/Reflux, Hyperlipidemia, Hypertension Additional Past Medical History / Comment(s): Hx of pancreatitis. TONGUE LESION History of Any Multi-Drug Resistant Organisms: None Reported Past Surgical History: Cholecystectomy, Hernia Repair Additional Past Surgical History / Comment(s): SX ON NOSE TEEN FOR FX NOSE. COLONOSCOPY/EGD Past Anesthesia/Blood Transfusion Reactions: No Reported Reaction Past Psychological History: Anxiety, Bipolar, Depression Smoking Status: Current every day smoker Past Alcohol Use History: Abuse, Daily Additional Past Alcohol Use History / Comment(s): SMOKES 1 PPD SINCE AGE 11 Past Drug Use History: None Reported - Past Family History Mother Family Medical History: No Reported History Father Family Medical History: Pneumonia Medications and Allergies Home Medications Medication Instructions Recorded Confirmed Type Simvastatin 40 mg PO HS 03/10/16 09/25/21 History cloNIDine HCL [Catapres] 0.2 mg PO TID 03/10/16 09/25/21 History Metoprolol Succinate [Toprol XL] 200 mg PO DAILY 06/30/18 09/25/21 History Doxepin [SINEquan] 10 mg PO BID 04/30/21 09/25/21 History Metoclopramide [Reglan] 10 mg PO BID 04/30/21 09/25/21 History Sildenafil Citrate 50 mg PO DAILY PRN 04/30/21 09/25/21 History tiZANidine HCL 4 mg PO DAILY 04/30/21 09/25/21 History ALPRAZolam [Xanax] 1 mg PO BID 09/22/21 09/25/21 History HYDROcodone/APAP 7.5-325MG [[place] 1 tab PO TID 09/22/21 09/25/21 History 7.5-325] Omeprazole 40 mg PO BID 09/22/21 09/25/21 History QUEtiapine FUMARATE [SEROquel] 300 mg PO HS 09/22/21 09/25/21 History QUEtiapine XR [SEROquel XR] 150 mg PO HS 09/22/21 09/25/21 History Diltiazem Cd [Cardizem CD] 300 mg PO DAILY 09/25/21 09/25/21 History Allergies Allergy/AdvReac Type Severity Reaction Status Date / Time No Known Allergies Allergy Verified 09/25/21 17:41 Physical Exam Vitals: Vital Signs Temp Pulse Resp BP Pulse Ox 10/08/21 11:00 97 20 124/79 95 10/08/21 10:00 83 12 150/115 96 10/08/21 09:00 107 H 15 174/103 92 L 10/08/21 08:00 100.2 F H 103 H 28 H 151/89 90 L 10/08/21 07:00 88 32 H 142/89 94 L 10/08/21 06:00 87 27 H 170/106 91 L 10/08/21 05:00 113 H 27 H 152/104 94 L 10/08/21 04:00 101.1 F H 110 H 23 149/107 93 L 10/08/21 03:00 116 H 12 145/94 94 L 10/08/21 02:00 116 H 24 158/103 93 L 10/08/21 01:00 131 H 24 157/98 92 L 10/08/21 00:00 116 H 16 167/106 93 L 10/07/21 23:36 138 H 13 167/106 92 L 10/07/21 23:00 98.6 F 112 H 21 162/96 93 L 10/07/21 22:00 114 H 12 179/97 91 L 10/07/21 21:00 112 H 31 H 157/126 92 L 10/07/21 20:00 98.8 F 110 H 36 H 168/104 91 L 10/07/21 19:00 91 24 161/103 94 L 10/07/21 18:00 96 30 H 162/115 92 L 10/07/21 17:00 112 H 33 H 128/83 93 L 10/07/21 16:00 99.9 F H 65 15 180/118 96 10/07/21 15:00 93 21 171/103 93 L 10/07/21 14:00 56 L 13 175/99 95 10/07/21 13:00 59 L 13 167/97 97 10/07/21 12:00 97.9 F 58 L 13 159/98 96 Intake and Output 10/07/21 10/08/21 10/08/21 22:59 06:59 14:59 Intake Total 950 871.033 590.292 Output Total 700 Balance 250 871.033 590.292 Intake: IV 600 600 375 Sodium Chloride 0.9% 1, 600 600 375 000 ml @ 75 mls/hr IV . [id number] [facility] Rx#:[id number] Intake, IV Titration 200 271.033 115.292 Amount Dexmedetomidine/0.9% NaCl 200 271.033 15.292 (Pmx) 400 mcg In Empty Bag 1 bag @ 0.2 MCG/KG/HR 6.577 mls/hr IV .[id number] [facility] Rx#:[id number] Piperacillin-Tazobactam 3 100 .375 gm In Sodium Chloride 0.9% 100 ml @ 25 mls/hr IVPB Q8HR [facility] Rx# :[id number] Oral 150 100 Output: Urine 700 Other: Voiding Method External Catheter External Catheter External Catheter # Voids 1 1 Weight 121.5 kg PHYSICAL EXAMINATION Vital signs reviewed CONSTITUTIONAL: No apparent distress. HEENT: Head is normocephalic. Pupils are equal, round. Sclerae anicteric. Mucous membranes of the mouth are moist. NECK: No JVD. No carotid bruit. RESPIRATORY: Lungs are clear to auscultation. No chest wall tenderness is noted on palpation or with deep breathing. CARDIAC: Regular rate and rhythm. S1, S2 heard. No murmurs, gallops or rub. ABDOMEN: Soft, nontender. EXTREMITIES: 2+ peripheral pulses, no lower extremity edema and no calf tenderness. NEUROLOGIC EXAMINATION: Patient is awake, alert and oriented x3. INTEGUMENTARY: Warm, absent for rashes or sores PSYCH: Orientated to person, place, time, mood appropriate PSYCH: Negative for depression or hallucinations at the time of the exam Results 10/08/21 05:44 10/08/21 05:44 CBC 10/08/21 Range/Units 05:44 WBC 9.1 (3.8-10.6) k/uL RBC 4.10 L (4.30-5.90) m/uL Hgb 12.3 L (13.0-17.5) gm/dL Hct 37.8 L (39.0-53.0) % Plt Count 282 (150-450) k/uL Comprehensive Metabolic Panel 10/08/21 Range/Units 05:44 Sodium 140 (137-145) mmol/L Potassium 3.5 (3.5-5.1) mmol/L Chloride 108 H (98-107) mmol/L Carbon Dioxide 23 (22-30) mmol/L BUN 8 L (9-20) mg/dL Creatinine 0.76 (0.66-1.25) mg/dL Glucose 97 (74-99) mg/dL Calcium 8.2 L (8.4-10.2) mg/dL Current Medications Generic Name Dose Route Start Last Admin Trade Name Freq PRN Reason Stop Dose Admin Acetaminophen 500 mg 10/06/21 21:28 10/08/21 05:59 Acetaminophen Tab 500 Mg Tab PO 500 mg Q6HR PRN Administration Fever and/ or Pain Atorvastatin Calcium 20 mg 09/25/21 23:15 10/07/21 21:02 Atorvastatin 20 Mg Tab PO 20 mg HS MEGHNA Administration Chlordiazepoxide HCl 100 mg 09/26/21 18:15 10/08/21 08:50 Chlordiazepoxide 25 Mg Cap PO 100 mg QID ME[facility]NA Administration Clonidine 0.2 mg 09/25/21 23:15 10/08/21 08:52 Clonidine Hcl 0.2 Mg Tab PO 0.2 mg TID MEGHNA Administration Diltiazem HCl 300 mg 09/26/21 09:00 10/08/21 08:52 Diltiazem Cd 300 Mg Cap.Er.24h PO 300 mg DAILY MEGHNA Administration Doxepin HCl 10 mg 09/25/21 23:15 10/08/21 08:52 Doxepin 10 Mg Cap PO 10 mg BID MEGHNA Administration Heparin Sodium (Porcine) 5,000 unit 09/27/21 21:00 10/08/21 08:52 Heparin Sodium,Porcine/Pf 5,000 Unit/0.5 Ml Syringe SQ 5,000 unit Q12HR [facility] Administration Dexmedetomidine HCl 400 mcg/ 100 mls @ 6.577 mls/hr 09/27/21 14:45 10/08/21 07:12 IV Solution IV 0.08 mcg/kg/hr .[id number] [facility] 2.631 mls/hr Titration Protocol 0.2 MCG/KG/HR Sodium Chloride 1,000 mls @ 75 mls/hr 10/01/21 09:30 10/08/21 08:51 Saline 0.9% IV 75 mls/hr .[id number] [facility] Administration Piperacillin Sod/Tazobactam 100 mls @ 25 mls/hr 10/08/21 08:00 10/08/21 08:27 Sod 3.375 gm/ Sodium Chloride IVPB 25 mls/hr Q8HR [facility] Administration Protocol Potassium Chloride 10 meq/ IV 100 mls @ 100 mls/hr 10/08/21 11:00 10/08/21 11:22 Solution IVPB 10/08/21 14:59 100 mls/hr Q1HR ME[facility] Administration Protocol Lorazepam 1 mg 09/25/21 15:02 10/05/21 10:24 Lorazepam 2 Mg/Ml Inj IV 1 mg Q2HR PRN Administration CIWA 8 or 9 Lorazepam 1 mg 09/25/21 15:02 10/07/21 23:18 Lorazepam 2 Mg/Ml Inj IV 1 mg Q1HR PRN Administration CIWA 10 to 15 Lorazepam 4 mg 09/26/21 18:23 09/27/21 10:40 Lorazepam 2 Mg/Ml Inj IV 4 mg ONCE PRN Administration Alcohol Withdrawal Lorazepam 2 mg 09/26/21 18:51 10/07/21 01:18 Lorazepam 2 Mg/Ml Inj IV 2 mg Q1H PRN Administration Agitation Metoclopramide HCl 10 mg 09/25/21 23:15 10/08/21 08:52 Metoclopramide 10 Mg Tab PO 10 mg BID ME[facility]NA Administration Metoprolol Succinate 200 mg 09/26/21 09:00 10/08/21 08:53 Metoprolol Succinate (Er) 100 Mg Tab.Er.24h PO 200 mg DAILY [facility] Administration Miscellaneous Information 1 each 09/30/21 15:54 Magnesium Replacement Protocol 1 Each [facility] MISCELLANE DAILY PRN Per Protocol Protocol Miscellaneous Information 1 each 10/02/21 06:57 Potassium Replacement Protocol 1 Each Mis MISCELLANE DAILY PRN Per Protocol Protocol Naloxone HCl 0.2 mg 09/25/21 18:38 Naloxone 0.4 Mg/Ml 1 Ml Vial IV Q2M PRN Opioid Reversal Nicotine 1 patch 09/30/21 09:00 10/08/21 08:53 Nicotine 21mg/24hr Patch TRANSDERM 1 patch DAILY ME[facility]NA Administration Ondansetron HCl 4 mg 09/25/21 18:38 10/01/21 22:53 Ondansetron 4 Mg/2 Ml Vial IVP 4 mg Q8HR PRN Administration Nausea And Vomiting Pantoprazole Sodium 40 mg 09/27/21 17:30 10/08/21 07:06 Pantoprazole 40 Mg Tablet PO 40 mg AC-BID MEGHNA Administration Quetiapine Fumarate 300 mg 09/25/21 23:15 10/07/21 21:03 Quetiapine 100 Mg Tab PO 300 mg HS MEGHNA Administration Quetiapine Fumarate 100 mg 10/08/21 09:00 10/08/21 08:53 Quetiapine 100 Mg Tab PO 100 mg 0900,1300,1700 ME[facility] Administration Thiamine HCl 100 mg 09/30/21 09:00 10/08/21 08:53 Thiamine 100 Mg Tab PO 100 mg DAILY MEGHNA Administration Intake and Output 10/07/21 10/08/21 10/08/21 22:59 06:59 14:59 Intake Total 950 871.033 590.292 Output Total 700 Balance 250 871.033 590.292 Intake: IV 600 600 375 Sodium Chloride 0.9% 1, 600 600 375 000 ml @ 75 mls/hr IV . [id number] [facility] Rx#:[id number] Intake, IV Titration 200 271.033 115.292 Amount Dexmedetomidine/0.9% NaCl 200 271.033 15.292 (Pmx) 400 mcg In Empty Bag 1 bag @ 0.2 MCG/KG/HR 6.577 mls/hr IV .[id number] [facility] Rx#:[id number] Piperacillin-Tazobactam 3 100 .375 gm In Sodium Chloride 0.9% 100 ml @ 25 mls/hr IVPB Q8HR [facility] Rx# :[id number] Oral 150 100 Output: Urine 700 Other: Voiding Method External Catheter External Catheter External Catheter # Voids 1 1 Weight 121.5 kg 10/08/21 05:44 10/08/21 05:44 Assessment and Plan Assessment: Hypertension Delirium Alcoholism history of dyslipidemia Plan: Continue with current cardiac medications obtain a 2-D echocardiogram Further recommendations based on clinical course The above impression and plan of care have been discussed and directed by the signing physician. Marylu Briceno, nurse practitioner, acting as scribe for signing physician.
[2021-10-08] MEDS ORDERED: HALOPERIDOL LACTATE 5 MG/ML 1 ML VIAL IM PRN (13:30)
--- NOTE | 2021-10-08 14:57 | P.PN ---
Progress Note - Text Progress Note Date: 10/08/21 Psychiatric progress note Interval history: Psychiatry was asked to re-see patient today for psych follow up regarding pts mental health condition. Adapted Physical Education Aide reviewed chart and medications. Patients nurse claims that patient has been withdrawing from etoh and was intiially brought into the hospital in september. Patient was seen by Dr Bee for psych consult while in the ICU and recommended to resume pts meds doxepin 10 bid and gradually titrate up to pateitns home dose of seroquel 450 mg bid. Patient apparently has a hx of severe etoh dependence and withdrawal. He is currently on ciwa and given ativan prn, received last dose of 1mg last night. He is also on Precedex and attempts have been made to wean patient off it which were unsuccessful. Patients nurse claims that patient has been agitated at night and having poor sleep and has been confused. He was attempted to be seen by resume writer at the bedside and initially responded to his name however did not turn to [facility] resume writer. He continued facing away and responded less and less to resume writer. He appears to be somnolent and confused and had garbled speech, followed only minimal commands. Mental status exam: Patient has poor hygiene and grooming, laying in bed with restraints. turned to the opposite side. Poorly engaging with resume writer and follows minimal commands. He has garbled speech, non fluent. poverty of content and speech. concrete. Unable to assess mood and constricted affect. Poor attention span. unable to assess perceptions, not responding to internal stimuli. Not endorsing delusions or paranoia. Unable to assess orientation due to patients confusion and lethargy. Assessment: Delirium, likely secondary to alcohol withdrawal, medications/sedatives and prolonged ICU stay Alcohol dependence, currently in withdrawal history of anxiety and depression Plan: At this time will continue to follow along to help manage patients delirium through med mgt. Unclear whether or not patient will need inpatient psychiatric care or not. Apparently patient did mention that he would want to go rehab once discharged. -please attempt to decrease use of BZD (ativan) and other sedatives as much as possible as this will increase patients confusion/delirium. Attempting to cut back on seroquel at this time, decreased down to 50 mg daily plus 300 mg qhs for psychosis/agitation. decrease doxepin to 10 mg qhs for insomnia/mood. Decrease Librium to 75 mg four times daily for etoh withdrawl and will continue decreasing. -added PRN Haldol both IM and PO for agitaiton. -continue with CIWA -will continue to follow along, please call with any questions.
[2021-10-08] MEDS: LORazepam 2 MG/ML INJ IV PRN ×2 (15:23→20:09)
--- NOTE | 2021-10-08 16:43 | ECHOF ---
Referral Reason:possible a-fib MEASUREMENTS -------- HEIGHT: 195.6 cm WEIGHT: 121.1 kg BP: 124/79 RVIDd: 3.8 cm (< 3.3) IVSd: 1.7 cm (0.6 - 1.1) LVIDd: 5.1 cm (3.9 - 5.3) LVPWd: 1.7 cm (0.6 - 1.1) IVSs: 1.8 cm LVIDs: 3.8 cm LVPWs: 2.3 cm LAESV Index (A-L): 25.23 ml/m Ao Diam: 3.9 cm (2.0 - 3.7) AV Cusp: 2.2 cm (1.5 - 2.6) LA Diam: 4.1 cm (2.7 - 3.8) MV EXCURSION: 20.523 mm (> 18.000) MV EF SLOPE: 56 mm/s (70 - 150) EPSS: 0.8 cm MV E Jesus Alberto: 0.76 m/s MV DecT: 285 ms MV A Jesus Alberto: 0.90 m/s MV E/A Ratio: 0.84 RAP: 5.00 mmHg RVSP: 34.25 mmHg FINDINGS -------- Sinus rhythm. This was a technically adequate study. The left ventricular size is normal. There is moderate concentric left ventricular hypertrophy. O verall left ventricular systolic function is normal with, an EF between 55 - 60 %. The right ventricle is mildly enlarged. Normal LA size by volume 22+/-6 ml/m2. The right atrial size is normal. Interatrial and interventricular septum intact. There is no evidence of aortic regurgitation. There is no evidence of aortic stenosis. No mitral regurgitation. Mild tricuspid regurgitation present. There is borderline pulmonary artery hypertension. The [facility] t ventricular systolic pressure, as measured by Doppler, is 34.25mmHg. There is no pulmonic regurgitation present. The aortic root size is normal. IVC Not well visulized. Echo free space represents a pericardial fat pad. There is no pericardial effusion. CONCLUSIONS -------- 1. The left ventricular size is normal. 2. There is moderate concentric left ventricular hypertrophy. 3. Overall left ventricular systolic function is normal with, an EF between 55 - 60 %. 4. The right ventricle is mildly enlarged. 5. Mild tricuspid regurgitation present. 6. There is borderline pulmonary artery hypertension. 7. The right ventricular systolic pressure, as measured by Doppler, is 34.25mmHg. BAKERY TEAM LEADER: Cande Head RDCS
[2021-10-08] MEDS: ATORVASTATIN 20 MG TAB PO SCH (19:59)
--- NOTE | 2021-10-08 20:30 | PN ---
PROGRESS NOTE 51-year-old white male had echogram today and Cardiology consultation for increasing shortness of breath. Echo shows heart is pumping normal pulmonary borderline, pulmonary artery hypertension and LVH. He was also seen by Dr. Zamora who diagnosed with delirium secondary to alcohol withdrawal, prolonged ICU stay, alcohol dependence and withdrawal, anxiety, depression. He said it is unclear whether he needs inpatient psych help. He did mention that he would want to go to rehab once discharged. Been trying to cut down his Ativan and sedatives and has been on Seroquel, cutting down his doxepin and cut his Librium down. Possibly go to Psych daniel or to inpatient rehab once done. Continue [facility] protocol. Tierra CAIN / ALYSSA: [id number] /
[2021-10-08] MEDS ORDERED: DOXEPIN 10 MG CAP PO SCH (21:00)
--- NOTE | 2021-10-08 22:47 | P.PN ---
Subjective Progress Note Date: 10/08/21 Principal diagnosis: Fever and left heel pressure ulcer Patient is a 51-year-old male presented to the hospital on 09/25/2021 for help with getting sober and preventing DTs in this patient who did have a significant history of drinking, patient has been in the ICU and has been running fever for the last few days. On today's evaluation that is 10/08/2021, the patient did have a fever of 101 this morning and a low grade fever afterwards, the patient is hemodynamically stable the patient remains to be lethargic and is unable to provide any history no vomiting or diarrhea has been reported Objective - Vital Signs Vital signs: Vital Signs Temp 100.7 F H 10/08/21 16:00 Pulse 85 10/08/21 20:00 Resp 32 H 10/08/21 20:00 BP 132/87 10/08/21 20:00 Pulse Ox 94 L 10/08/21 20:00 Intake & Output 10/08/21 10/08/21 10/09/21 06:59 18:59 06:59 Intake Total 0505.425 8719.123 241.204 Output Total 650 Balance 2951.643 3598.123 241.204 Weight 121.5 kg 121.5 kg Intake: IV 900 900 150 Sodium Chloride 0.9% 1, 900 900 150 000 ml @ 75 mls/hr IV . [id number] [facility] Rx#:[id number] Intake, IV Titration 371.033 801.123 91.204 Amount Dexmedetomidine/0.9% NaCl 371.033 201.123 91.204 (Pmx) 400 mcg In Empty Bag 1 bag @ 0.2 MCG/KG/HR 6.577 mls/hr IV .[id number] [facility] Rx#:[id number] Piperacillin-Tazobactam 3 200 .375 gm In Sodium Chloride 0.9% 100 ml @ 25 mls/hr IVPB Q8HR [facility] Rx# :[id number] Potassium Chloride 10 meq 400 In Water For Injection 1 100ml.bag @ 100 mls/hr IVPB Q1HR [facility] Rx#: [id number] Oral 150 450 Output: Gastric Drainage 50 Urine 600 Other: Voiding Method External Catheter External Catheter # Voids 1 1 - Exam GENERAL DESCRIPTION: Middle-age male lying in bed in no distress RESPIRATORY SYSTEM: Unlabored breathing , decreased breath sounds at bases HEART: S1 S2 regular rate and rhythm , ABDOMEN: Soft , no tenderness EXTREMITIES: No edema feet, left heel with a stage II pressure ulcer no cellulitis - Labs CBC & Chem 7: 10/08/21 05:44 10/08/21 05:44 Labs: Abnormal Lab Results - Last 24 Hours (Table) 10/08/21 10/08/21 Range/Units 05:44 05:44 RBC 4.10 L (4.30-5.90) m/uL Hgb 12.3 L (13.0-17.5) gm/dL Hct 37.8 L (39.0-53.0) % Chloride 108 H (98-107) mmol/L BUN 8 L (9-20) mg/dL Calcium 8.2 L (8.4-10.2) mg/dL C-Reactive Protein 29.1 H (<1.0) mg/dL Microbiology - Last 24 Hours (Table) 10/05/21 10:03 Blood Culture - Preliminary Blood No Growth after 72 hours 10/05/21 09:57 Blood Culture - Preliminary Blood No Growth after 72 hours 10/07/21 05:44 Blood Culture - Preliminary Blood No Growth after 24 hours Assessment and Plan (1) Fever Current Visit: Yes Status: Acute Code(s): R50.9 - FEVER, UNSPECIFIED SNOMED Code(s): 047135936 Plan: 1patient is a 51-year male presented to hospital about 2 weeks ago requesting help with becoming sober and preventing alcohol withdrawal seizure in this patient has been running fever for the last 5 days however the patient did have normal white count chest x-ray showing some atelectasis patient does not look toxic with a question of possible fever related to DTs , underlying pneumonia But not entirely excluded 2blood cultures will be repeated and we will repeat a chest x-ray. 3-Zosyn has been added and will see clinical response 4-we will apply dry Aquacel silver dressing to the left heel to be changed every 48 hour and keep the area of the pressure
[2021-10-09] MEDS: DEXMEDETOMIDINE/0.9% NACL(PMX) 400 MCG in EMPTY BAG 1 BAG IV SCH ×6 (03:11→20:25)
[2021-10-09] MEDS: LORazepam 2 MG/ML INJ IV PRN (04:12)
[2021-10-09 06:19] LABS: Basophils # (A) 0.1 k/uL (0-0.2); Basophils % (A) 1 %; Eosinophils # (A) 0.3 k/uL (0-0.7); Eosinophils % (A) 3 %; HCT 36.6 % (39.0-53.0); HGB 12.2 gm/dL (13.0-17.5); Lymphocytes # (A) 1.2 k/uL (1.0-4.8); Lymphocytes % (A) 12 %; MCH 30.6 pg (25.0-35.0); MCHC 33.2 g/dL (31.0-37.0); Mean Platelet Volume 9.7; Monocytes # (A) 0.7 k/uL (0-1.0); Monocytes % (A) 7 %; Neutrophils # (A) 7.1 k/uL (1.3-7.7); Neutrophils % (A) 75 %; Platelet Count 270 k/uL (150-450); RBC 3.98 m/uL (4.30-5.90); RDW 13.1 % (11.5-15.5); WBC 9.5 k/uL (3.8-10.6)
[2021-10-09 06:52] LABS: ALT 33 U/L (4-49); AST 43 U/L (17-59); African American GFR (CKD) >90 (>60 ml/min/1.73 sqM); Albumin 3.1 g/dL (3.5-5.0); Alkaline Phosphatase 128 U/L (38-126); Anion Gap 11 mmol/L; Blood Urea Nitrogen 7 mg/dL (9-20); Calcium 8.4 mg/dL (8.4-10.2); Carbon Dioxide 23 mmol/L (22-30); Chloride 106 mmol/L (98-107); Glucose 108 mg/dL (74-99); Non-African American GFR(CKD) >90 (>60 ml/min/1.73 sqM); Potassium 3.6 mmol/L (3.5-5.1); Sodium 140 mmol/L (137-145); Total Bilirubin 0.7 mg/dL (0.2-1.3)
[2021-10-09] MEDS: PIPERACILLIN-TAZOBACTAM 3.375 GM in SODIUM CHLORIDE 0.9% 100 ML IVPB SCH ×3 (08:54→23:16)
[2021-10-09] MEDS: NICOTINE 21MG/24HR PATCH TRANSDERM SCH (08:54)
[2021-10-09] MEDS: QUEtiapine 50 MG TAB PO SCH (08:55)
[2021-10-09] MEDS: THIAMINE 100 MG TAB PO SCH (08:55)
[2021-10-09] MEDS: chlordiazePOXIDE 25 MG CAP PO SCH ×5 (08:55→23:00)
[2021-10-09] MEDS: METOPROLOL SUCCINATE (ER) 100 MG TAB.ER.24H PO SCH (08:55)
[2021-10-09] MEDS: PANTOPRAZOLE 40 MG TABLET PO SCH ×2 (08:55→17:01)
[2021-10-09] MEDS: DILTIAZEM CD 300 MG CAP.ER.24H PO SCH (08:55)
[2021-10-09] MEDS: HEPARIN SODIUM,PORCINE/PF 5,000 UNIT/0.5 ML SYRINGE SQ SCH ×2 (08:55→20:27)
[2021-10-09] MEDS: METOCLOPRAMIDE 10 MG TAB PO SCH ×2 (08:55→20:27)
[2021-10-09] MEDS: cloNIDine 0.3 MG/24HR PATCH TRANSDERM SCH (09:12)
--- NOTE | 2021-10-09 09:45 | P.PN ---
Subjective Progress Note Date: 10/09/21 Principal diagnosis: Alcohol withdrawal syndrome 10/01/2021, the patient remains in the intensive care unit. Continues to have sitters to monitor his agitation. He was doing well and overnight he became very agitated and he was swinging and punching and attacking nursing staff. Based on that, he was given a total of 80 mg of Ativan overnight. This morning he is also on Precedex at 1.4 mg/kg/m very much somnolent and sleepy. Nevertheless, he is able to protect his airways. He remains of liters of oxygen by nasal cannula and a pulse ox of 97%. Unable to take his oral medications. He is also receiving normal state rate of 75 mL an hour. No seizure activity. He is having normal blood work. The white cell count of 8.5 with hemoglobin 13.6. Platelets are chronically low at 111, the patient has no elevation of the ammonia and ammonia level came back as less than 9. Normal electrolytes and the potassium needs to be replaced at 3.3, BUN is at 5 with a creatinine of 0.8 and a mild elevation of ALP and AST is a chronic alcoholism. Amylase and lipase are not elevated at this point in time. The patient remains nothing by mouth 10/02/2021, I'm seeing the patient for a follow-up. The patient is arousable. His communicating. He is still confused. Is moving all 4 extremities. Remains on Precedex at 1.1 mcg/kg per minute and overnight he has required only 8 mg of Ativan IV. No nausea. No vomiting. No diarrhea. No abdominal pain. No chest pain. No seizure activity. Moving all 4 extremity is. BUN is at 7 with a creatinine 0.80 sodium level is at 138 with a potassium level of 3.7. White cell count is at 9.2 with a hemoglobin 13.6 and the plated count of 131. No other new complaints otherwise for now. 10/03/2021, the patient is more awake compared to yesterday. The patient remains on Precedex at 0.7 g by mouth overnight, has required less Ativan and order a 4 mg throughout the night. Still at times restless and the patient is requiring a sitter. He tries to get out of bed. He remains confused. He is able to communicate is notable for extremities. Denies having any headache. No reported aspiration. He remains nothing by mouth for now. He is able to swallow his pills and based on that the patient will be given his Librium in addition to Seroquel. The patient was also given rest of his medications that includes doxepin. He is requiring Ativan on an as-needed basis. The patient is also on Precedex at 0.7 mcg/kg per minute. The patient has a white cell count of 10.2 with a hemoglobin of 13.4. BUN is at 6 with a creatinine of 0.8 and a sodium level is at 136. 10/04/2021, the patient is sleeping in the morning. Apparently was having hard time with sleep yesterday. He was given Ativan a total of 10 mg yesterday and is receiving since 3 AM. I was able to arouse him. He remains on Precedex at 0.6 mcg/kg per minute. Noted the patient was still having episodes of agitation and delirium. Sitters still at the bedside. He remains on oxygen at 4 L per minute nasal cannula. No signs of any respiratory distress at this point in time. No reported aspiration. No fever or chills. Blood work remains stable with a white cell count of 9.7 with a hemoglobin of 15.6 and his sodium level of 141 with a BUN of 7 and a creatinine of 0.7. Progress note dated 10/05/2021. This patient was admitted to the hospital on September 25. He came in with a diagnosis of alcohol withdrawal syndrome. He drinks tequila on a regular basis. He came to the intensive care unit, on September 27. He came in for alcohol withdrawal syndrome. Currently, he's on 6 L nasal cannula. He is getting saline at 75 mL an hour. He is also on dexmedetomidine at 1.6 mcg/kg/h. The patient is still very confused and disoriented. He is also getting Ativan per the [facility] protocol. White count 8.7, hemoglobin 12.6, hematocrit 37.1, and platelet count is normal sodium potassium chloride CO2 all normal. Anion gap 11, BUN 6, creatinine 0.77. A chest x-ray shows some basilar atelectasis. The patient is seen today 10/06/2021 in follow-up in the intensive care unit. He is currently resting comfortably in bed. He last received Ativan 2 mg at 9 PM last night. He had been restless through the night. He is currently on Precedex again at 0.75 mcg/kg/m. He has 0.9 normal saline at 75 ML's per hour. He is maintaining good O2 saturations in the 90s on 2 L/m per nasal cannula. He is continued on Seroquel and Librium. He remains on Sinequan. Heparin for DVT prophylaxis. Protonix for GI prophylaxis. NicoDerm patch in place. No new labs today. The patient is seen today 10/07/2021 in follow-up in the intensive care unit. He is currently sedated and resting comfortably in bed. He was quite agitated again last night to approximate 4:00 this morning. His Precedex has been increased 1.1 mcg/kg per hour. He required 9 mg of Ativan throughout the night as well. He is having issues with fevers and had a T-max of 102.8. He did receive Tylenol. Current temperature 97.9. Follow-up blood cultures are pending. Repeat pro calcitonin pending. White count 9.1. Hemoglobin 12.6. Platelet count 221. Sodium 141. Potassium 4.0. Chloride 112. Bicarb 22. BUN 8. Creatinine 0.74. Glucose 112. AST 54. ALT 37. He is continued on Seroquel, Sinequan, Librium. Heparin for DVT prophylaxis. When he is awake and alert and cooperative he is eating his meals and taking his medications. dog sitter remains at the bedside. The patient is seen today 10/08/2021 in follow-up in the intensive care unit. He is currently resting quietly in bed. He is in restraints still. dog sitter at the bedside. He remains on Precedex at 0.8 mcg/kg per hour. Normal saline at 75 ML's per hour. He is on 4 L nasal cannula. Chest x-ray continues to show some right lower lobe infiltrate. Still with fevers at 101.1. Initial blood cultures revealed no growth. Follow-up blood cultures are pending. White count 9.1. Hemoglobin 12.3. Sodium 140. Potassium 2.5. BUN 8. Creatinine 0.76. The patient becomes quite restless and agitated when Precedex his weaning down. He did receive only 2 mg of Ativan through the night. He is on Seroquel 300 mg at bedtime along with 75 mg twice a day currently. He is also on Librium and Sinequan. He remains in the [facility]WAl protocol. The patient is seen today 10/09/2021 in follow-up in the intensive care unit. He is a bit more awake and alert currently. He is admitting to drinking a fifth of vodka and half a fifth of tequila on a daily basis. He is still requiring Precedex at 1.2 mcg/kg per hour. He has normal saline running at 75 ML's per hour. He is on oxygen at 3 L/m per nasal cannula. He remains quite restless. Remains in restraints. dog sitter at the bedside. He had been seen by psychiatric services with some medication adjustments. Blood cultures revealing no growth. White count 9.5. Hemoglobin 12.2. Sodium 140. Potassium 3.6. Bicarb 23. BUN 7. Creatinine 0.75. Gross 108. AST 43. ALT 33. He remains in a CIWA protocol. Heparin for DVT prophylaxis. NicoDerm patch in place. Antibiotics in the form of Zosyn. Objective - Vital Signs Vital signs: Vital Signs Temp 99.9 F H 10/09/21 04:00 Pulse 80 10/09/21 08:00 Resp 29 H 10/09/21 08:00 BP 175/112 10/09/21 08:00 Pulse Ox 93 L 10/09/21 08:44 Intake & Output 10/08/21 10/09/21 10/09/21 18:59 06:59 18:59 Intake Total 2151.123 1186.462 175 Output Total 650 Balance 4619.339 2331.462 175 Weight 121.5 kg 121.3 kg Intake: IV 900 900 75 Sodium Chloride 0.9% 1, 900 900 75 000 ml @ 75 mls/hr IV . [id number] [facility] Rx#:[id number] Intake, IV Titration 801.123 286.462 100 Amount Dexmedetomidine/0.9% NaCl 201.123 286.462 100 (Pmx) 400 mcg In Empty Bag 1 bag @ 0.2 MCG/KG/HR 6.577 mls/hr IV .[id number] [facility] Rx#:[id number] Piperacillin-Tazobactam 3 200 .375 gm In Sodium Chloride 0.9% 100 ml @ 25 mls/hr IVPB Q8HR [facility] Rx# :[id number] Potassium Chloride 10 meq 400 In Water For Injection 1 100ml.bag @ 100 mls/hr IVPB Q1HR [facility] Rx#: [id number] Oral 450 Output: Gastric Drainage 50 Urine 600 Other: Voiding Method External Catheter External Catheter # Voids 1 1 - Exam GENERAL EXAM: 51-year-old male patient, awake, restless at times, on 3 L nasal cannula, currently comfortable in no apparent distress. HEAD: Normocephalic. EYES: Normal reaction of pupils, equal size. NOSE: Clear with pink turbinates. THROAT: No erythema or exudates. NECK: No masses, no JVD. CHEST: No chest wall deformity. LUNGS: Equal air entry with crackles in the right lung base. CVS: S1 and S2 normal with no audible murmur, regular rhythm. ABDOMEN: No hepatosplenomegaly, normal bowel sounds, no guarding or rigidity. SPINE: No scoliosis or deformity SKIN: No rashes CENTRAL NERVOUS SYSTEM: No focal deficits, tone is normal in all 4 extremities. EXTREMITIES: There is no peripheral edema. No clubbing, no cyanosis. Peripheral pulses are intact. - Labs CBC & Chem 7: 10/09/21 05:45 10/09/21 05:45 Labs: Abnormal Lab Results - Last 24 Hours (Table) 10/09/21 10/09/21 Range/Units 05:45 05:45 RBC 3.98 L (4.30-5.90) m/uL Hgb 12.2 L (13.0-17.5) gm/dL Hct 36.6 L (39.0-53.0) % BUN 7 L (9-20) mg/dL Glucose 108 H (74-99) mg/dL Alkaline Phosphatase 128 H (38-126) U/L Total Protein 6.0 L (6.3-8.2) g/dL Albumin 3.1 L (3.5-5.0) g/dL Microbiology - Last 24 Hours (Table) 10/07/21 05:44 Blood Culture - Preliminary Blood No Growth after 48 hours 10/05/21 10:03 Blood Culture - Preliminary Blood No Growth after 72 hours 10/05/21 09:57 Blood Culture - Preliminary Blood No Growth after 72 hours Assessment and Plan Assessment: 1 Alcohol withdrawal syndrome in the form of delirium tremens. Remains on Precedex drip. Continues to require Ativan. Remains in the CIWA protocol 2 Chronic alcoholism. 3 Hypertension. 4 Hyperlipidemia. 5 History of ongoing tobacco use. 6 History of chronic anxiety/depression disorder. 7 History of acid reflux disease. 8 Chronic liver disease secondary to alcohol abuse. 9 Febrile illness, follow-up cultures pending and procalcitonin 0.12. 10 Right lower lobe infiltrate/atelectasis, on Zosyn Plan: The patient was seen and evaluated Labs reviewed Continue Zosyn Titrate down the FiO2 as tolerated Utilizing incentive spirometer was cooperative Remains on Precedex at 1.2 mcg/kg/h, plan to wean off today We will make Haldol 8 mg every 4 hours scheduled We will make Ativan 2 mg every 4 hours scheduled Continue to monitor closely here in the ICU dog sitter at the bedside We will continue to follow I have personally seen and examined the patient, performed the documentation and the assessment and plan as written. Number of minutes spent on the visit: 10.
--- NOTE | 2021-10-09 10:03 | P.PN ---
Subjective Progress Note Date: 10/09/21 This is a pleasant 51-year-old male past medical history significant for hypertension and hyperlipidemia admitted with alcohol withdrawal symptoms. He follows in the office with Dr. Morejon. Patient is seen today in the ICU resting in bed. Patient's blood pressure remains elevated. Patient is not alw ays taking his oral medications. Will continue Toprol and Cardizem by mouth. Will start patient on Catapres patch 0.3mg daily. For better control of blood pressure. Echo shows a normal LV function with an ejection fraction of 55-60%, moderate left ventricular hypertrophy, right ventricle is mildly enlarged, mild tricuspid regurgitation and borderline pulmonary hypertension. Patient remains sinus rhythm on the monitor. He remains on the Precedex, patient's Ativan and Haldol doses have been adjusted. To discontinue Precedex today Objective - Vital Signs Vital signs: Vital Signs Temp 99.9 F H 10/09/21 04:00 Pulse 80 10/09/21 08:00 Resp 29 H 10/09/21 08:00 BP 175/112 10/09/21 08:00 Pulse Ox 93 L 10/09/21 08:44 Intake & Output 10/08/21 10/09/21 10/09/21 18:59 06:59 18:59 Intake Total 2151.123 1186.462 175 Output Total 650 Balance 7892.782 6931.462 175 Weight 121.5 kg 121.3 kg Intake: IV 900 900 75 Sodium Chloride 0.9% 1, 900 900 75 000 ml @ 75 mls/hr IV . [id number] [facility] Rx#:[id number] Intake, IV Titration 801.123 286.462 100 Amount Dexmedetomidine/0.9% NaCl 201.123 286.462 100 (Pmx) 400 mcg In Empty Bag 1 bag @ 0.2 MCG/KG/HR 6.577 mls/hr IV .[id number] [facility] Rx#:[id number] Piperacillin-Tazobactam 3 200 .375 gm In Sodium Chloride 0.9% 100 ml @ 25 mls/hr IVPB Q8HR [facility] Rx# :[id number] Potassium Chloride 10 meq 400 In Water For Injection 1 100ml.bag @ 100 mls/hr IVPB Q1HR [facility] Rx#: [id number] Oral 450 Output: Gastric Drainage 50 Urine 600 Other: Voiding Method External Catheter External Catheter # Voids 1 1 - Exam PHYSICAL EXAM: VITAL SIGNS: Reviewed. GENERAL: Well-developed in no acute distress. HEENT: Head is normocephalic. Pupils are equal, round. Sclerae anicteric. Mucous membranes of the mouth are moist. NECK: Supple. No JVD or thyromegaly RESPIRATORY: Respirations even and unlabored. Lungs diminished to auscultation bilaterally. CARDIO: Regular rate and rhythm. S1 and S2 heard. No murmur or gallops. EXTREMITIES: Normal range of motion. No clubbing or cyanosis. Peripheral pulses intact. Negative for bilateral lower extremity edema NEURO: Orientated to person, time, and place mood is restless - Labs CBC & Chem 7: 10/09/21 05:45 10/09/21 05:45 Labs: Abnormal Lab Results - Last 24 Hours (Table) 10/09/21 10/09/21 Range/Units 05:45 05:45 RBC 3.98 L (4.30-5.90) m/uL Hgb 12.2 L (13.0-17.5) gm/dL Hct 36.6 L (39.0-53.0) % BUN 7 L (9-20) mg/dL Glucose 108 H (74-99) mg/dL Alkaline Phosphatase 128 H (38-126) U/L Total Protein 6.0 L (6.3-8.2) g/dL Albumin 3.1 L (3.5-5.0) g/dL Microbiology - Last 24 Hours (Table) 10/07/21 05:44 Blood Culture - Preliminary Blood No Growth after 48 hours 10/05/21 10:03 Blood Culture - Preliminary Blood No Growth after 72 hours 10/05/21 09:57 Blood Culture - Preliminary Blood No Growth after 72 hours Assessment and Plan Assessment: Hypertension Delirium Alcoholism history of dyslipidemia Plan: Stop oral Catapres and start Catapres patch 0.3 mg daily Continue with current cardiac medications Echocardiogram reviewed Further recommendations based on clinical course The above impression and plan of care have been discussed and directed by the signing physician. Marylu Briceno, nurse practitioner, acting as scribe for signing physician.
[2021-10-09] MEDS: HALOPERIDOL LACTATE 5 MG/ML 1 ML VIAL IVP SCH ×2 (12:16→16:37)
[2021-10-09] MEDS: LORazepam 2 MG/ML INJ IV SCH ×2 (12:17→16:38)
--- NOTE | 2021-10-09 15:37 | P.PN ---
Subjective Progress Note Date: 10/09/21 Principal diagnosis: Fever and left heel pressure ulcer Patient is a 51-year-old male presented to the hospital on 09/25/2021 for help with getting sober and preventing DTs in this patient who did have a significant history of drinking, patient has been in the ICU and has been running fever for the last few days. On today's evaluation that is 10/09/2021, the patient fever pattern has improved with a low-grade fever of 99F this morning , the patient is hemodynamically stable the patient remains to be lethargic and is unable to provide any history no vomiting or diarrhea or any other changes has been reported by the nursing staff Objective - Vital Signs Vital signs: Vital Signs Temp 98.1 F 10/09/21 12:00 Pulse 66 10/09/21 12:00 Resp 19 10/09/21 12:00 BP 118/72 10/09/21 12:00 Pulse Ox 94 L 10/09/21 12:00 Intake & Output 10/08/21 10/09/21 10/09/21 18:59 06:59 18:59 Intake Total 2151.123 1186.462 780.255 Output Total 650 600 Balance 0319.482 9684.462 180.255 Weight 121.5 kg 121.3 kg Intake: IV 900 900 450 Sodium Chloride 0.9% 1, 900 900 450 000 ml @ 75 mls/hr IV . [id number] [facility] Rx#:[id number] Intake, IV Titration 801.123 286.462 330.255 Amount Dexmedetomidine/0.9% NaCl 201.123 286.462 230.255 (Pmx) 400 mcg In Empty Bag 1 bag @ 0.2 MCG/KG/HR 6.577 mls/hr IV .[id number] [facility] Rx#:[id number] Piperacillin-Tazobactam 3 200 100 .375 gm In Sodium Chloride 0.9% 100 ml @ 25 mls/hr IVPB Q8HR [facility] Rx# :[id number] Potassium Chloride 10 meq 400 In Water For Injection 1 100ml.bag @ 100 mls/hr IVPB Q1HR [facility] Rx#: [id number] Oral 450 Output: Gastric Drainage 50 Urine 600 600 Other: Voiding Method External Catheter External Catheter # Voids 1 1 1 - Exam GENERAL DESCRIPTION: Middle-age male lying in bed in no distress RESPIRATORY SYSTEM: Unlabored breathing , decreased breath sounds at bases HEART: S1 S2 regular rate and rhythm , ABDOMEN: Soft , no tenderness EXTREMITIES: No edema feet, left heel with a stage II pressure ulcer no c ellulitis - Labs CBC & Chem 7: 10/09/21 05:45 10/09/21 05:45 Labs: Abnormal Lab Results - Last 24 Hours (Table) 10/09/21 10/09/21 Range/Units 05:45 05:45 RBC 3.98 L (4.30-5.90) m/uL Hgb 12.2 L (13.0-17.5) gm/dL Hct 36.6 L (39.0-53.0) % BUN 7 L (9-20) mg/dL Glucose 108 H (74-99) mg/dL Alkaline Phosphatase 128 H (38-126) U/L Total Protein 6.0 L (6.3-8.2) g/dL Albumin 3.1 L (3.5-5.0) g/dL Microbiology - Last 24 Hours (Table) 10/05/21 10:03 Blood Culture - Preliminary Blood No Growth after 96 hours 10/05/21 09:57 Blood Culture - Preliminary Blood No Growth after 96 hours 10/07/21 05:44 Blood Culture - Preliminary Blood No Growth after 48 hours Assessment and Plan (1) Fever Current Visit: Yes Status: Acute Code(s): R50.9 - FEVER, UNSPECIFIED SNOMED Code(s): 123114330 Plan: 1patient is a 51-year male presented to hospital about 2 weeks ago requesting help with becoming sober and preventing alcohol withdrawal seizure in this patient has been running fever for the last 5 days however the patient did have normal white count chest x-ray showing some atelectasis patient does not look toxic with a question of possible fever related to DTs , underlying pneumonia less likely but not entirely excluded 2blood cultures are so far pending 3-patient to continue with Zosyn and monitor his clinical course closely 4-we will apply dry Aquacel silver dressing to the left heel to be changed every 48 hour and keep the area of the pressure Time with Patient: Less than 30
[2021-10-09] MEDS: SODIUM CHLORIDE 0.9% 1,000 ML IV SCH (16:39)
[2021-10-09] MEDS: POTASSIUM CHLORIDE 10 MEQ in WATER FOR INJECTION 1 100ML.BAG IVPB SCH ×2 (16:39→19:25)
--- NOTE | 2021-10-09 17:50 | P.PN ---
Progress Note - Text Progress Note Date: 10/09/21 Interval history: life underwriter went to see patient again today at the bedside. Patient nurse claims that patient has been up and eating food and more alert today. She states that she is also been trying to cut back patients Precedex gradually. Patient is still on CIWA protocol and was given IM ativan this morning. He had his librium seroquel and doxepin cut down yesterday. Patient was seen eating food at the bedside with his girlfriend present. Patient claims that he remembers from [place]. He states that he is doing a bit better today and is denying any anxiety or any depression. He claims that he was able to sleep fairly last night. He continues to be somewhat confused however is oriented to place and location. He does not know what date is today. He knows the current president. He cannot spell "world" backwards. At this time he is denying any auditory or visual hallucinations. He is denying any suicidal or homicidal ideations intent or plan. Mental status exam: Patient has improving hygiene and grooming, laying in bed with restraints. Alert today. Follows commands. He has garbled speech, improving mildly. poverty of content and speech. concrete. He is denying any depression and claims his mood is "alright", constricted affect. Poor attention span, improving. Denies any auditory hallucinations or visual hallucinations. Not endorsing delusions or paranoia. He is confused, alert and oriented 2, knows the current Pres. is. Assessment: Delirium, likely secondary to alcohol withdrawal, medications/sedatives and prolonged ICU stay, improving Alcohol dependence, currently in withdrawal history of anxiety and depression Plan: Patient is improving. At this time will continue to follow along to help manage patients delirium through med mgt. Unclear whether or not patient will need inpatient psychiatric care or not. Apparently patient did mention that he would want to go rehab once discharged. -please attempt to decrease use of BZD (ativan) and other sedatives as much as possible as this will increase patients confusion/delirium. continue cutting back on precedex. changed seroquel to 50 mg daily plus 400 mg qhs for psychosis/agitation. d/c doxepin. Decrease Librium to 50 mg four times daily for etoh withdrawl and will continue decreasing. added melatonin for sleep regualtion. discontinued scheduled ativan and haldol and changed to prn instead. -PRN Haldol both IM and PO for agitaiton/anxiety. please attempt to use haldol more instead of ativan as ativan will make patient more confused. -continue with CIWA -communicated plan to nurse. -will continue to follow along as needed, please call with any questions.
--- NOTE | 2021-10-09 18:25 | PN ---
PROGRESS NOTE 51-year-old white male with alcohol withdrawal syndrome, still in ICU. He has had worsening confusion. Blood pressure was elevated, he has not taken his oral medications. Cardiology saw him. Continue him on Toprol and Cardizem, Catapres patch that he was on before. Echo was normal. Borderline pulmonary hypertension. Remains on Precedex, Ativan, Haldol has been decreased. Supposed to decrease Precedex, stop it today. Temp 99, pulse 80, respiratory 16 to 18, blood pressure is 170s/100, O2 93. Cardiovascular S1-S2. Lungs: Rales at the base. Hematology: Negative Homans. Psych: Fair mood and affect. Neurologic: Alert and orient x3. ASSESSMENT: 1. Hypertension. 2. Delirium. 3. Alcoholism. 4. Dyslipidemia. 5. Wean off Precedex. 6. Have Psych see him, possibly go to [facility]. 7. Continue medications per psych recommendations. MMODL / IJN: [id number] /
[2021-10-09] MEDS: LORazepam 1 MG TAB PO PRN (20:27)
[2021-10-09] MEDS: MELATONIN 5 MG TABLET PO SCH (20:27)
[2021-10-09] MEDS: ATORVASTATIN 20 MG TAB PO SCH (20:27)
[2021-10-09] MEDS: QUEtiapine 400 MG TAB PO SCH (20:27)
[2021-10-09] MEDS: ACETAMINOPHEN TAB 500 MG TAB PO PRN (23:01)
[2021-10-10] MEDS: SODIUM CHLORIDE 0.9% 1,000 ML IV SCH ×2 (01:46→20:27)
[2021-10-10] MEDS: DEXMEDETOMIDINE/0.9% NACL(PMX) 400 MCG in EMPTY BAG 1 BAG IV SCH (01:49)
[2021-10-10] MEDS: HALOPERIDOL LACTATE 5 MG/ML 1 ML VIAL IM PRN ×2 (02:40→19:00)
[2021-10-10] MEDS: LORazepam 1 MG TAB PO PRN ×2 (04:38→11:56)
[2021-10-10 06:29] LABS: Basophils # (A) 0.1 k/uL (0-0.2); Basophils % (A) 1 %; Eosinophils # (A) 0.1 k/uL (0-0.7); Eosinophils % (A) 1 %; HCT 41.6 % (39.0-53.0); HGB 13.1 gm/dL (13.0-17.5); Hypochromasia Moderate; Lymphocytes # (A) 1.1 k/uL (1.0-4.8); Lymphocytes % (A) 11 %; MCH 30.6 pg (25.0-35.0); MCHC 31.5 g/dL (31.0-37.0); Mean Platelet Volume 9.7; Monocytes # (A) 0.7 k/uL (0-1.0); Monocytes % (A) 7 %; Neutrophils # (A) 7.4 k/uL (1.3-7.7); Neutrophils % (A) 77 %; Platelet Count 286 k/uL (150-450); RBC 4.28 m/uL (4.30-5.90); RDW 13.5 % (11.5-15.5); WBC 9.7 k/uL (3.8-10.6)
[2021-10-10 06:30] LABS: MCV 97.2 fL (80.0-100.0)
[2021-10-10] MEDS: PANTOPRAZOLE 40 MG TABLET PO SCH ×2 (06:30→16:40)
[2021-10-10 06:34] LABS: African American GFR (CKD) >90 (>60 ml/min/1.73 sqM); Anion Gap 13 mmol/L; Blood Urea Nitrogen 9 mg/dL (9-20); Calcium 8.6 mg/dL (8.4-10.2); Carbon Dioxide 18 mmol/L (22-30); Chloride 106 mmol/L (98-107); Glucose 100 mg/dL (74-99); Non-African American GFR(CKD) >90 (>60 ml/min/1.73 sqM); Potassium 4.4 mmol/L (3.5-5.1); Sodium 137 mmol/L (137-145)
[2021-10-10] MEDS: THIAMINE 100 MG TAB PO SCH (09:21)
[2021-10-10] MEDS: DILTIAZEM CD 300 MG CAP.ER.24H PO SCH (09:22)
[2021-10-10] MEDS: HEPARIN SODIUM,PORCINE/PF 5,000 UNIT/0.5 ML SYRINGE SQ SCH ×2 (09:22→19:59)
[2021-10-10] MEDS: METOPROLOL SUCCINATE (ER) 100 MG TAB.ER.24H PO SCH (09:22)
[2021-10-10] MEDS: METOCLOPRAMIDE 10 MG TAB PO SCH ×2 (09:22→19:59)
[2021-10-10] MEDS: NICOTINE 21MG/24HR PATCH TRANSDERM SCH (09:22)
[2021-10-10] MEDS: QUEtiapine 50 MG TAB PO SCH (09:23)
[2021-10-10] MEDS: PIPERACILLIN-TAZOBACTAM 3.375 GM in SODIUM CHLORIDE 0.9% 100 ML IVPB SCH ×3 (09:24→23:23)
[2021-10-10] MEDS ORDERED: bisacodyL 10 MG SUPP RECTAL STA (09:34)
[2021-10-10] MEDS: chlordiazePOXIDE 25 MG CAP PO SCH ×4 (10:03→23:23)
--- NOTE | 2021-10-10 10:57 | P.PN ---
Subjective Progress Note Date: 10/10/21 Principal diagnosis: Alcohol withdrawal syndrome 10/01/2021, the patient remains in the intensive care unit. Continues to have sitters to monitor his agitation. He was doing well and overnight he became very agitated and he was swinging and punching and attacking nursing staff. Based on that, he was given a total of 80 mg of Ativan overnight. This morning he is also on Precedex at 1.4 mg/kg/m very much somnolent and sleepy. Nevertheless, he is able to protect his airways. He remains of liters of oxygen by nasal cannula and a pulse ox of 97%. Unable to take his oral medications. He is also receiving normal state rate of 75 mL an hour. No seizure activity. He is having normal blood work. The white cell count of 8.5 with hemoglobin 13.6. Platelets are chronically low at 111, the patient has no elevation of the ammonia and ammonia level came back as less than 9. Normal electrolytes and the potassium needs to be replaced at 3.3, BUN is at 5 with a creatinine of 0.8 and a mild elevation of ALP and AST is a chronic alcoholism. Amylase and lipase are not elevated at this point in time. The patient remains nothing by mouth 10/02/2021, I'm seeing the patient for a follow-up. The patient is arousable. His communicating. He is still confused. Is moving all 4 extremities. Remains on Precedex at 1.1 mcg/kg per minute and overnight he has required only 8 mg of Ativan IV. No nausea. No vomiting. No diarrhea. No abdominal pain. No chest pain. No seizure activity. Moving all 4 extremity is. BUN is at 7 with a creatinine 0.80 sodium level is at 138 with a potassium level of 3.7. White cell count is at 9.2 with a hemoglobin 13.6 and the plated count of 131. No other new complaints otherwise for now. 10/03/2021, the patient is more awake compared to yesterday. The patient remains on Precedex at 0.7 g by mouth overnight, has required less Ativan and order a 4 mg throughout the night. Still at times restless and the patient is requiring a sitter. He tries to get out of bed. He remains confused. He is able to communicate is notable for extremities. Denies having any headache. No reported aspiration. He remains nothing by mouth for now. He is able to swallow his pills and based on that the patient will be given his Librium in addition to Seroquel. The patient was also given rest of his medications that includes doxepin. He is requiring Ativan on an as-needed basis. The patient is also on Precedex at 0.7 mcg/kg per minute. The patient has a white cell count of 10.2 with a hemoglobin of 13.4. BUN is at 6 with a creatinine of 0.8 and a sodium level is at 136. 10/04/2021, the patient is sleeping in the morning. Apparently was having hard time with sleep yesterday. He was given Ativan a total of 10 mg yesterday and is receiving since 3 AM. I was able to arouse him. He remains on Precedex at 0.6 mcg/kg per minute. Noted the patient was still having episodes of agitation and delirium. Sitters still at the bedside. He remains on oxygen at 4 L per minute nasal cannula. No signs of any respiratory distress at this point in time. No reported aspiration. No fever or chills. Blood work remains stable with a white cell count of 9.7 with a hemoglobin of 15.6 and his sodium level of 141 with a BUN of 7 and a creatinine of 0.7. Progress note dated 10/05/2021. This patient was admitted to the hospital on September 25. He came in with a diagnosis of alcohol withdrawal syndrome. He drinks tequila on a regular basis. He came to the intensive care unit, on September 27. He came in for alcohol withdrawal syndrome. Currently, he's on 6 L nasal cannula. He is getting saline at 75 mL an hour. He is also on dexmedetomidine at 1.6 mcg/kg/h. The patient is still very confused and disoriented. He is also getting Ativan per the [facility] protocol. White count 8.7, hemoglobin 12.6, hematocrit 37.1, and platelet count is normal sodium potassium chloride CO2 all normal. Anion gap 11, BUN 6, creatinine 0.77. A chest x-ray shows some basilar atelectasis. The patient is seen today 10/06/2021 in follow-up in the intensive care unit. He is currently resting comfortably in bed. He last received Ativan 2 mg at 9 PM last night. He had been restless through the night. He is currently on Precedex again at 0.75 mcg/kg/m. He has 0.9 normal saline at 75 ML's per hour. He is maintaining good O2 saturations in the 90s on 2 L/m per nasal cannula. He is continued on Seroquel and Librium. He remains on Sinequan. Heparin for DVT prophylaxis. Protonix for GI prophylaxis. NicoDerm patch in place. No new labs today. The patient is seen today 10/07/2021 in follow-up in the intensive care unit. He is currently sedated and resting comfortably in bed. He was quite agitated again last night to approximate 4:00 this morning. His Precedex has been increased 1.1 mcg/kg per hour. He required 9 mg of Ativan throughout the night as well. He is having issues with fevers and had a T-max of 102.8. He did receive Tylenol. Current temperature 97.9. Follow-up blood cultures are pending. Repeat pro calcitonin pending. White count 9.1. Hemoglobin 12.6. Platelet count 221. Sodium 141. Potassium 4.0. Chloride 112. Bicarb 22. BUN 8. Creatinine 0.74. Glucose 112. AST 54. ALT 37. He is continued on Seroquel, Sinequan, Librium. Heparin for DVT prophylaxis. When he is awake and alert and cooperative he is eating his meals and taking his medications. generator technician remains at the bedside. The patient is seen today 10/08/2021 in follow-up in the intensive care unit. He is currently resting quietly in bed. He is in restraints still. generator technician at the bedside. He remains on Precedex at 0.8 mcg/kg per hour. Normal saline at 75 ML's per hour. He is on 4 L nasal cannula. Chest x-ray continues to show some right lower lobe infiltrate. Still with fevers at 101.1. Initial blood cultures revealed no growth. Follow-up blood cultures are pending. White count 9.1. Hemoglobin 12.3. Sodium 140. Potassium 2.5. BUN 8. Creatinine 0.76. The patient becomes quite restless and agitated when Precedex his weaning down. He did receive only 2 mg of Ativan through the night. He is on Seroquel 300 mg at bedtime along with 75 mg twice a day currently. He is also on Librium and Sinequan. He remains in the [facility] protocol. The patient is seen today 10/09/2021 in follow-up in the intensive care unit. He is a bit more awake and alert currently. He is admitting to drinking a fifth of vodka and half a fifth of tequila on a daily basis. He is still requiring Precedex at 1.2 mcg/kg per hour. He has normal saline running at 75 ML's per hour. He is on oxygen at 3 L/m per nasal cannula. He remains quite restless. Remains in restraints. generator technician at the bedside. He had been seen by psychiatric services with some medication adjustments. Blood cultures revealing no growth. White count 9.5. Hemoglobin 12.2. Sodium 140. Potassium 3.6. Bicarb 23. BUN 7. Creatinine 0.75. Gross 108. AST 43. ALT 33. He remains in a [facility] protocol. Heparin for DVT prophylaxis. NicoDerm patch in place. Antibiotics in the form of Zosyn. The patient is seen today 10/10/2021 in follow-up in the intensive care unit. He is much more awake and alert today. Being cooperative at the moment. Resting comfortably in bed. Maintaining O2 saturations in the 90s on 4 L/m per nasal cannula. Slight fever at 100.1 axillary. Slightly tachycardic. Blood pressure stable. Blood cultures revealed no growth. White count 9.7. Hemoglobin 13.1. Sodium 137. Potassium 4.4. BUN 9. Creatinine 0.67. Bicarb 18. Glucose 100. He remains on Precedex at 0.3mcg/kg per hour. Normal saline at 75 ML's per hour. He is to reevaluate by psych services. Receiving Haldol most recently at 2:40 this morning and Ativan 2 mg at 4:30 this morning. Remains on Seroquel and Librium. Continued on heparin for DVT prophylaxis. NicoDerm patch is in place. Objective - Vital Signs Vital signs: Vital Signs Temp 100.1 F H 10/10/21 08:00 Pulse 110 H 10/10/21 10:00 Resp 24 10/10/21 10:00 BP 167/110 10/10/21 10:00 Pulse Ox 91 L 10/10/21 10:00 Intake & Output 10/09/21 10/10/21 10/10/21 18:59 06:59 18:59 Intake Total 3149.942 3584.059 378.047 Output Total 1600 2200 0 Balance 13.367 -1101.941 378.047 Weight 124.1 kg Intake: IV 975 925 300 Piperacillin-Tazobactam 3 100 .375 gm In Sodium Chloride 0.9% 100 ml @ 25 mls/hr IVPB Q8HR [facility] Rx# :[id number] Sodium Chloride 0.9% 1, 975 825 300 000 ml @ 75 mls/hr IV . [id number] [facility] Rx#:[id number] Intake, IV Titration 638.367 173.059 78.047 Amount Dexmedetomidine/0.9% NaCl 338.367 173.059 78.047 (Pmx) 400 mcg In Empty Bag 1 bag @ 0.2 MCG/KG/HR 6.577 mls/hr IV .[id number] [facility] Rx#:[id number] Piperacillin-Tazobactam 3 200 .375 gm In Sodium Chloride 0.9% 100 ml @ 25 mls/hr IVPB Q8HR [facility] Rx# :[id number] Potassium Chloride 10 meq 100 In Water For Injection 1 100ml.bag @ 100 mls/hr IVPB Q1H [facility] Rx#: [id number] Output: Urine 1600 1100 0 Post Void Residual 1100 Other: Voiding Method External Catheter External Catheter External Catheter # Voids 1 0 0 - Exam GENERAL EXAM: 51-year-old male patient, awake, calm, cooperative at the moment, on 4 L nasal cannula, comfortable in no apparent distress. HEAD: Normocephalic. EYES: Normal reaction of pupils, equal size. NOSE: Clear with pink turbinates. THROAT: No erythema or exudates. NECK: No masses, no JVD. CHEST: No chest wall deformity. LUNGS: Equal air entry with crackles in the right lung base. CVS: S1 and S2 normal with no audible murmur, regular rhythm. ABDOMEN: No hepatosplenomegaly, normal bowel sounds, no guarding or rigidity. SPINE: No scoliosis or deformity SKIN: No rashes CENTRAL NERVOUS SYSTEM: No focal deficits, tone is normal in all 4 extremities. EXTREMITIES: There is no peripheral edema. No clubbing, no cyanosis. Peripheral pulses are intact. - Labs CBC & Chem 7: 10/10/21 05:55 10/10/21 05:55 Labs: Abnormal Lab Results - Last 24 Hours (Table) 10/10/21 10/10/21 Range/Units 05:55 05:55 RBC 4.28 L (4.30-5.90) m/uL Carbon Dioxide 18 L (22-30) mmol/L Glucose 100 H (74-99) mg/dL Microbiology - Last 24 Hours (Table) 10/07/21 05:44 Blood Culture - Preliminary Blood No Growth after 72 hours 10/05/21 10:03 Blood Culture - Preliminary Blood No Growth after 96 hours 10/05/21 09:57 Blood Culture - Preliminary Blood No Growth after 96 hours Assessment and Plan Assessment: 1 Alcohol withdrawal syndrome in the form of delirium tremens. Remains on Precedex drip. Continues to require Haldol and Ativan. 2 Chronic alcoholism. 3 Hypertension. 4 Hyperlipidemia. 5 History of ongoing tobacco use. 6 History of chronic anxiety/depression disorder. 7 History of acid reflux disease. 8 Chronic liver disease secondary to alcohol abuse. 9 Febrile illness, follow-up cultures pending and procalcitonin 0.12. 10 Right lower lobe infiltrate/atelectasis, on Zosyn Plan: The patient was seen and evaluated Labs reviewed Continue Zosyn Titrate down the FiO2 as tolerated Utilizing incentive spirometer when cooperative Wean off Precedex today Continue Haldol and Ativan as needed Continue Seroquel and Librium per psych services Follow up chest x-ray in a.m. Continue to monitor closely here in the ICU We will continue to follow I have personally seen and examined the patient, performed the documentation and the assessment and plan as written. Number of minutes spent on the visit: 10.
[2021-10-10] MEDS: haloperidoL 5 MG TAB PO PRN (11:13)
--- NOTE | 2021-10-10 13:12 | P.PN ---
Progress Note - Text Progress Note Date: 10/10/21 Interval history: technical writer and editor went to see patient again today at the bedside. Patient nurse claims that patient has been very drowsy, but had a period of agitation earlier today. Precedex has been weaned off. Was given Haldol at 240, and Ativan at 430 and 1113. He is able to state his name, but he states that he is in [place] and it is October 20 or 2020. He states that Keila Maki is the president. He is not able to spell his last name backwards. He denies suicidal thoughts homicidal thoughts or hallucinations. Mental status exam: Patient laying in bed Drowsy. Appears uncomfortable. He has garbled speech. poverty of content and speech. Slow rate of speech. concrete. constricted affect. Poor attention span, improving. AAOx1. Denies any auditory hallucinations or visual hallucinations. knows the current Pres. is. Cannot spell "Tai[place]" backwards Assessment: Delirium, likely secondary to alcohol withdrawal, medications/sedatives and prolonged ICU stay, improving Alcohol dependence, currently in withdrawal history of anxiety and depression Plan: At this time will continue to follow along to help manage patients delirium through med mgt. Unclear whether or not patient will need inpatient psychiatric care or not. Patient did mention that he would want to go rehab once discharged. -please attempt to decrease use of BZD (ativan) and other sedatives as much as possible as this will increase patients confusion/delirium. continue cutting back on precedex. changed seroquel to 50 mg daily plus 400 mg qhs for psychosis/agitation. d/c doxepin. Continue Librium 50 mg four times daily for etoh withdrawl but plan to decrease. continue melatonin for sleep regualtion. -PRN Haldol both IM and PO for agitaiton/anxiety. please attempt to use haldol more instead of ativan as ativan will make patient more confused. -continue with [facility] -will continue to follow along as needed, please call with any questions.
[2021-10-10] MEDS: LORazepam 2 MG/ML INJ IM PRN ×2 (13:46→20:06)
--- NOTE | 2021-10-10 15:08 | PN ---
PROGRESS NOTE 51-year-old white male who is in the ICU still. Psych saw him. Neurology has seen him, Infectious Disease, Dr. Allison, anesthesiology medical doctor. He has been given Haldol over benzodiazepines because of his concerns of delirium and confusion. He is much more awake and having conversations, possibly go to the psych unit or an inpatient polysubstance abuse program. He was admitted with alcohol withdrawal syndrome and had a hard time weaning off Precedex. Slightly fever of 100.1. He was started on medicine for aspiration pneumonia. He still has some mild tachycardia. His labs: Bicarb 18, sodium 137, potassium 4.4. Started on Precedex although they are trying to wean and down as well as the Ativan. He remains on Seroquel, Librium, even on lower doses. They want a suppository which is being given. Blood pressure 160s over 100 with a pulse of 110, temperature 100.1, O2 91. He was restarted on his home blood pressure medicines include Catapres patch that he takes at home. He is talking a little bit. He is cooperative at the moment. He is on 4 L oxygen. He is still somnolent. Lungs are clear. Heart: S1, S2. Abdomen is soft. Skin no rashes. Blood cultures are negative. ASSESSMENT: 1. Alcohol withdrawal syndrome. 2. Hypertension acceleration. 3. Nicotine addiction. 4. Degenerative disk disease with neuropathy. 5. Gastroesophageal reflux disease. 6. Polysubstance abuse. 7. Chronic liver disease. 8. Bipolar. 9. Right lower lobe infiltrate. 10.Atelectasis on Zosyn. Possible aspiration pneumonia. 11.Continue with antibiotics. 12.Wean off Precedex. 13.Continue psych recommendations. Probably long-term needs to go to a psych unit for polysubstance abuse or [facility]. MMODL / IJN: [id number] /
--- NOTE | 2021-10-10 15:34 | PN ---
PROGRESS NOTE Pan is a 51-year-old gentleman who is in the ICU with uncontrolled hypertension and has had issues with alcohol withdrawal. He is somewhat confused and combative and continues to have elevated blood pressures. He is currently on Cardizem CD 300 daily. I put him on a Catapres patch yesterday. He is on Toprol-XL 200 mg daily and yet the blood pressure remains elevated at 170/100. I will add lisinopril 10 mg daily. On exam, heart rate is 110 beats per minute, blood pressure is 140/96, respirations 18 per minute. Chest exam reveals diminished air entry at the bases. Heart exam reveals first and second heart sounds. No gallop. Abdomen is soft. Exam of extremities did not reveal any edema. Peripheral pulses are felt. ASSESSMENT: Uncontrolled hypertension. PLAN: We will add lisinopril to what he is on. MMODL / IJN: [id number] /
[2021-10-10] MEDS: lisinopriL 10 MG TAB PO SCH (16:35)
[2021-10-10] MEDS: ACETAMINOPHEN TAB 500 MG TAB PO PRN (16:40)
[2021-10-10] MEDS: QUEtiapine 400 MG TAB PO SCH (19:59)
[2021-10-10] MEDS: MELATONIN 5 MG TABLET PO SCH (19:59)
[2021-10-10] MEDS: ATORVASTATIN 20 MG TAB PO SCH (19:59)
--- NOTE | 2021-10-10 21:44 | P.PN ---
Subjective Progress Note Date: 10/10/21 Principal diagnosis: Fever and left heel pressure ulcer Patient is a 51-year-old male presented to the hospital on 09/25/2021 for help with getting sober and preventing DTs in this patient who did have a significant history of drinking, patient has been in the ICU and has been running fever for the last few days. On today's evaluation that is 10/10/2021, the patient did spike a low-grade fever 100.4F this afternoon , the patient is hemodynamically stable not requir ing increases support, the patient remains to be lethargic and is unable to provide any history no vomiting or diarrhea or any other changes has been reported by the nursing staff Objective - Vital Signs Vital signs: Vital Signs Temp 98.4 F 10/10/21 12:00 Pulse 100 10/10/21 15:00 Resp 17 10/10/21 15:00 BP 152/96 10/10/21 15:00 Pulse Ox 100 10/10/21 15:00 Intake & Output 10/09/21 10/10/21 10/10/21 18:59 06:59 18:59 Intake Total 5616.831 3190.059 753.047 Output Total 1600 2200 0 Balance 13.367 -1101.941 753.047 Weight 124.1 kg Intake: IV 975 925 675 Piperacillin-Tazobactam 3 100 .375 gm In Sodium Chloride 0.9% 100 ml @ 25 mls/hr IVPB Q8HR [facility] Rx# :[id number] Sodium Chloride 0.9% 1, 975 825 675 000 ml @ 75 mls/hr IV . [id number] [facility] Rx#:[id number] Intake, IV Titration 638.367 173.059 78.047 Amount Dexmedetomidine/0.9% NaCl 338.367 173.059 78.047 (Pmx) 400 mcg In Empty Bag 1 bag @ 0.2 MCG/KG/HR 6.577 mls/hr IV .[id number] [facility] Rx#:[id number] Piperacillin-Tazobactam 3 200 .375 gm In Sodium Chloride 0.9% 100 ml @ 25 mls/hr IVPB Q8HR [facility] Rx# :[id number] Potassium Chloride 10 meq 100 In Water For Injection 1 100ml.bag @ 100 mls/hr IVPB Q1H [facility] Rx#: [id number] Output: Urine 1600 1100 0 Post Void Residual 1100 Other: Voiding Method External Catheter External Catheter External Catheter # Voids 1 0 0 # Bowel Movements 1 - Exam GENERAL DESCRIPTION: Middle-age male lying in bed in no distress RESPIRATORY SYSTEM: Unlabored breathing , decreased breath sounds at bases HEART: S1 S2 regular rate and rhythm , ABDOMEN: Soft , no tenderness EXTREMITIES: No edema feet, left heel with a stage II pressure ulcer no cellulitis - Labs CBC & Chem 7: 10/10/21 05:55 10/10/21 05:55 Labs: Abnormal Lab Results - Last 24 Hours (Table) 10/10/21 10/10/21 Range/Units 05:55 05:55 RBC 4.28 L (4.30-5.90) m/uL Carbon Dioxide 18 L (22-30) mmol/L Glucose 100 H (74-99) mg/dL Microbiology - Last 24 Hours (Table) 10/05/21 10:03 Blood Culture - Preliminary Blood No Growth after 120 hours 10/05/21 09:57 Blood Culture - Preliminary Blood No Growth after 120 hours 10/07/21 05:44 Blood Culture - Preliminary Blood No Growth after 72 hours Assessment and Plan (1) Fever Current Visit: Yes Status: Acute Code(s): R50.9 - FEVER, UNSPECIFIED SNOMED Code(s): 617385639 Plan: 1patient is a 51-year male presented to hospital about 2 weeks ago requesting help with becoming sober and preventing alcohol withdrawal seizure in this patient has been running fever for the last 5 days however the patient did have normal white count chest x-ray showing some atelectasis patient does not look toxic with a question of possible fever related to DTs , underlying pneumonia less likely but not entirely excluded 2blood cultures negative sputum could not be obtained 3-patient to continue with Zosyn and monitor his clinical course closely 4-we will apply dry Aquacel silver dressing to the left heel to be changed every 48 hour and keep the area of the pressure Time with Patient: Less than 30
[2021-10-11 01:32] LABS: Glucose,Whole Blood 100 mg/dL (75-99)
[2021-10-11 03:19] LABS: ABG Base Excess -0.8 mmol/L; ABG HCO3 26 mmol/L (21-25); ABG PCO2 59 mmHg (35-45); ABG PH 7.26 (7.35-7.45); ABG PO2 67 mmHg (83-108); ABG TCO2 28 mmol/L (19-24); Allen Test Performed? Yes
[2021-10-11] MEDS: SODIUM CHLORIDE 0.9% 1,000 ML IV SCH ×2 (04:31→22:50)
[2021-10-11] MEDS: PANTOPRAZOLE 40 MG TABLET PO SCH ×2 (06:38→17:52)
[2021-10-11 06:46] LABS: Basophils # (A) 0.1 k/uL (0-0.2); Basophils % (A) 1 %; Eosinophils # (A) 0.1 k/uL (0-0.7); Eosinophils % (A) 1 %; HCT 45.1 % (39.0-53.0); Hypochromasia Marked; Lymphocytes # (A) 1.2 k/uL (1.0-4.8); Lymphocytes % (A) 9 %; MCH 30.3 pg (25.0-35.0); MCV 97.8 fL (80.0-100.0); Mean Platelet Volume 9.4; Monocytes % (A) 7 %; Neutrophils # (A) 10.6 k/uL (1.3-7.7); Neutrophils % (A) 79 %; Platelet Count 384 k/uL (150-450); RBC 4.61 m/uL (4.30-5.90); RDW 13.7 % (11.5-15.5); WBC 13.5 k/uL (3.8-10.6)
[2021-10-11 06:47] LABS: African American GFR (CKD) >90 (>60 ml/min/1.73 sqM); Anion Gap 13 mmol/L; Blood Urea Nitrogen 9 mg/dL (9-20); Calcium 8.6 mg/dL (8.4-10.2); Carbon Dioxide 18 mmol/L (22-30); Chloride 108 mmol/L (98-107); Glucose 115 mg/dL (74-99); Non-African American GFR(CKD) >90 (>60 ml/min/1.73 sqM); Potassium 4.6 mmol/L (3.5-5.1); Sodium 139 mmol/L (137-145)
--- NOTE | 2021-10-11 06:50 | XR ---
EXAMINATION TYPE: XR chest 1V portable DATE OF EXAM: 10/11/2021 COMPARISON: 10/08/2021 HISTORY: Shortness of breath TECHNIQUE: Single frontal view of the chest is obtained. FINDINGS: No change in the mild cardiomegaly, pulmonary vascular congestion and mild interstitial ed darlyn. There is no pneumothorax or pleural effusion. The osseous structures are intact. IMPRESSION: No change in the acute cardiopulmonary process most likely mild CHF.
[2021-10-11] MEDS: chlordiazePOXIDE 25 MG CAP PO SCH ×3 (08:53→21:00)
[2021-10-11] MEDS: NICOTINE 21MG/24HR PATCH TRANSDERM SCH (08:53)
[2021-10-11] MEDS: HEPARIN SODIUM,PORCINE/PF 5,000 UNIT/0.5 ML SYRINGE SQ SCH ×2 (08:53→20:58)
[2021-10-11] MEDS: QUEtiapine 50 MG TAB PO SCH (08:54)
[2021-10-11] MEDS: METOPROLOL SUCCINATE (ER) 100 MG TAB.ER.24H PO SCH (08:54)
[2021-10-11] MEDS: DILTIAZEM CD 300 MG CAP.ER.24H PO SCH (08:54)
[2021-10-11] MEDS: METOCLOPRAMIDE 10 MG TAB PO SCH ×2 (08:54→20:58)
[2021-10-11] MEDS: lisinopriL 10 MG TAB PO SCH (08:56)
[2021-10-11] MEDS: THIAMINE 100 MG TAB PO SCH (08:56)
[2021-10-11] MEDS: PIPERACILLIN-TAZOBACTAM 3.375 GM in SODIUM CHLORIDE 0.9% 100 ML IVPB SCH ×2 (08:56→17:52)
[2021-10-11] MEDS ORDERED: FUROSEMIDE 10 MG/ML 4 ML VIAL IV STA (09:43)
--- NOTE | 2021-10-11 09:44 | P.PN ---
Subjective Progress Note Date: 10/11/21 Principal diagnosis: Alcohol withdrawal syndrome 10/01/2021, the patient remains in the intensive care unit. Continues to have sitters to monitor his agitation. He was doing well and overnight he became very agitated and he was swinging and punching and attacking nursing staff. Based on that, he was given a total of 80 mg of Ativan overnight. This morning he is also on Precedex at 1.4 mg/kg/m very much somnolent and sleepy. Nevertheless, he is able to protect his airways. He remains of liters of oxygen by nasal cannula and a pulse ox of 97%. Unable to take his oral medications. He is also receiving normal state rate of 75 mL an hour. No seizure activity. He is having normal blood work. The white cell count of 8.5 with hemoglobin 13.6. Platelets are chronically low at 111, the patient has no elevation of the ammonia and ammonia level came back as less than 9. Normal electrolytes and the potassium needs to be replaced at 3.3, BUN is at 5 with a creatinine of 0.8 and a mild elevation of ALP and AST is a chronic alcoholism. Amylase and lipase are not elevated at this point in time. The patient remains nothing by mouth 10/02/2021, I'm seeing the patient for a follow-up. The patient is arousable. His communicating. He is still confused. Is moving all 4 extremities. Remains on Precedex at 1.1 mcg/kg per minute and overnight he has required only 8 mg of Ativan IV. No nausea. No vomiting. No diarrhea. No abdominal pain. No chest pain. No seizure activity. Moving all 4 extremity is. BUN is at 7 with a creatinine 0.80 sodium level is at 138 with a potassium level of 3.7. White cell count is at 9.2 with a hemoglobin 13.6 and the plated count of 131. No other new complaints otherwise for now. 10/03/2021, the patient is more awake compared to yesterday. The patient remains on Precedex at 0.7 g by mouth overnight, has required less Ativan and order a 4 mg throughout the night. Still at times restless and the patient is requiring a sitter. He tries to get out of bed. He remains confused. He is able to communicate is notable for extremities. Denies having any headache. No reported aspiration. He remains nothing by mouth for now. He is able to swallow his pills and based on that the patient will be given his Librium in addition to Seroquel. The patient was also given rest of his medications that includes doxepin. He is requiring Ativan on an as-needed basis. The patient is also on Precedex at 0.7 mcg/kg per minute. The patient has a white cell count of 10.2 with a hemoglobin of 13.4. BUN is at 6 with a creatinine of 0.8 and a sodium level is at 136. 10/04/2021, the patient is sleeping in the morning. Apparently was having hard time with sleep yesterday. He was given Ativan a total of 10 mg yesterday and is receiving since 3 AM. I was able to arouse him. He remains on Precedex at 0.6 mcg/kg per minute. Noted the patient was still having episodes of agitation and delirium. Sitters still at the bedside. He remains on oxygen at 4 L per minute nasal cannula. No signs of any respiratory distress at this point in time. No reported aspiration. No fever or chills. Blood work remains stable with a white cell count of 9.7 with a hemoglobin of 15.6 and his sodium level of 141 with a BUN of 7 and a creatinine of 0.7. Progress note dated 10/05/2021. This patient was admitted to the hospital on September 25. He came in with a diagnosis of alcohol withdrawal syndrome. He drinks tequila on a regular basis. He came to the intensive care unit, on September 27. He came in for alcohol withdrawal syndrome. Currently, he's on 6 L nasal cannula. He is getting saline at 75 mL an hour. He is also on dexmedetomidine at 1.6 mcg/kg/h. The patient is still very confused and disoriented. He is also getting Ativan per the [facility] protocol. White count 8.7, hemoglobin 12.6, hematocrit 37.1, and platelet count is normal sodium potassium chloride CO2 all normal. Anion gap 11, BUN 6, creatinine 0.77. A chest x-ray shows some basilar atelectasis. The patient is seen today 10/06/2021 in follow-up in the intensive care unit. He is currently resting comfortably in bed. He last received Ativan 2 mg at 9 PM last night. He had been restless through the night. He is currently on Precedex again at 0.75 mcg/kg/m. He has 0.9 normal saline at 75 ML's per hour. He is maintaining good O2 saturations in the 90s on 2 L/m per nasal cannula. He is continued on Seroquel and Librium. He remains on Sinequan. Heparin for DVT prophylaxis. Protonix for GI prophylaxis. NicoDerm patch in place. No new labs today. The patient is seen today 10/07/2021 in follow-up in the intensive care unit. He is currently sedated and resting comfortably in bed. He was quite agitated again last night to approximate 4:00 this morning. His Precedex has been increased 1.1 mcg/kg per hour. He required 9 mg of Ativan throughout the night as well. He is having issues with fevers and had a T-max of 102.8. He did receive Tylenol. Current temperature 97.9. Follow-up blood cultures are pending. Repeat pro calcitonin pending. White count 9.1. Hemoglobin 12.6. Platelet count 221. Sodium 141. Potassium 4.0. Chloride 112. Bicarb 22. BUN 8. Creatinine 0.74. Glucose 112. AST 54. ALT 37. He is continued on Seroquel, Sinequan, Librium. Heparin for DVT prophylaxis. When he is awake and alert and cooperative he is eating his meals and taking his medications. automatic clipper and stripper remains at the bedside. The patient is seen today 10/08/2021 in follow-up in the intensive care unit. He is currently resting quietly in bed. He is in restraints still. automatic clipper and stripper at the bedside. He remains on Precedex at 0.8 mcg/kg per hour. Normal saline at 75 ML's per hour. He is on 4 L nasal cannula. Chest x-ray continues to show some right lower lobe infiltrate. Still with fevers at 101.1. Initial blood cultures revealed no growth. Follow-up blood cultures are pending. White count 9.1. Hemoglobin 12.3. Sodium 140. Potassium 2.5. BUN 8. Creatinine 0.76. The patient becomes quite restless and agitated when Precedex his weaning down. He did receive only 2 mg of Ativan through the night. He is on Seroquel 300 mg at bedtime along with 75 mg twice a day currently. He is also on Librium and Sinequan. He remains in the [facility] protocol. The patient is seen today 10/09/2021 in follow-up in the intensive care unit. He is a bit more awake and alert currently. He is admitting to drinking a fifth of vodka and half a fifth of tequila on a daily basis. He is still requiring Precedex at 1.2 mcg/kg per hour. He has normal saline running at 75 ML's per hour. He is on oxygen at 3 L/m per nasal cannula. He remains quite restless. Remains in restraints. automatic clipper and stripper at the bedside. He had been seen by psychiatric services with some medication adjustments. Blood cultures revealing no growth. White count 9.5. Hemoglobin 12.2. Sodium 140. Potassium 3.6. Bicarb 23. BUN 7. Creatinine 0.75. Gross 108. AST 43. ALT 33. He remains in a [facility] protocol. Heparin for DVT prophylaxis. NicoDerm patch in place. Antibiotics in the form of Zosyn. The patient is seen today 10/10/2021 in follow-up in the intensive care unit. He is much more awake and alert today. Being cooperative at the moment. Resting comfortably in bed. Maintaining O2 saturations in the 90s on 4 L/m per nasal cannula. Slight fever at 100.1 axillary. Slightly tachycardic. Blood pressure stable. Blood cultures revealed no growth. White count 9.7. Hemoglobin 13.1. Sodium 137. Potassium 4.4. BUN 9. Creatinine 0.67. Bicarb 18. Glucose 100. He remains on Precedex at 0.3mcg/kg per hour. Normal saline at 75 ML's per hour. He is to reevaluate by psych services. Receiving Haldol most recently at 2:40 this morning and Ativan 2 mg at 4:30 this morning. Remains on Seroquel and Librium. Continued on heparin for DVT prophylaxis. NicoDerm patch is in place. The patient is seen today 10/11/2021 in follow-up in the intensive care unit. He continues to wax and wane as far as his levels of alertness. His medications are being adjusted through psychiatry. Still working on getting a good balance between sedation and agitation. He was difficult to arouse earlier this morning. Arterial blood gases on 36% FiO2 revealed a PaO2 of 67, pCO2 of 59 and a pH of 7.26. Currently he is awake, drowsy. Answering most questions appropriately. He is maintaining O2 saturation in the 90s on 6 L/m per nasal cannula. Asked x-ray continues to show some mild cardiomegaly, pulmonary vascular congestion with some mild interstitial edema. No significant change. Blood cultures reveal no growth. White count 13.5. Hemoglobin 14.0. Sodium 139. Potassium 4.6. Chloride 108. Bicarb 18. BUN 9. Creatinine 0.64. He is continued on Zosyn. Objective - Vital Signs Vital signs: Vital Signs Temp 100.1 F H 10/11/21 08:00 Pulse 115 H 10/11/21 09:00 Resp 24 10/11/21 09:00 BP 177/108 10/11/21 09:00 Pulse Ox 93 L 10/11/21 09:00 Intake & Output 10/10/21 10/11/21 10/11/21 17:59 06:59 18:59 Intake Total 225 Output Total 165 Balance 60 Weight Intake: IV 225 Piperacillin-Tazobactam 3 .375 gm In Sodium Chloride 0.9% 100 ml @ 25 mls/hr IVPB Q8HR [facility] Rx# :[id number] Sodium Chloride 0.9% 1, 225 000 ml @ 75 mls/hr IV . [id number] [facility] Rx#:[id number] Intake, IV Titration Amount Dexmedetomidine/0.9% NaCl (Pmx) 400 mcg In Empty Bag 1 bag @ 0.2 MCG/KG/HR 6.577 mls/hr IV .[id number] [facility] Rx#:[id number] Output: Urine 165 Other: Voiding Method # Voids # Bowel Movements - Exam GENERAL EXAM: 51-year-old male patient, awake, cooperative at the moment, on 6 L nasal cannula, comfortable in no apparent distress. HEAD: Normocephalic. EYES: Normal reaction of pupils, equal size. NOSE: Clear with pink turbinates. THROAT: No erythema or exudates. NECK: No masses, no JVD. CHEST: No chest wall deformity. LUNGS: Equal air entry with crackles in the right lung base. CVS: S1 and S2 normal with no audible murmur, regular rhythm. ABDOMEN: No hepatosplenomegaly, normal bowel sounds, no guarding or rigidity. SPINE: No scoliosis or deformity SKIN: No rashes CENTRAL NERVOUS SYSTEM: No focal deficits, tone is normal in all 4 extremities. EXTREMITIES: There is no peripheral edema. No clubbing, no cyanosis. Peripheral pulses are intact. - Labs CBC & Chem 7: 10/11/21 05:52 10/11/21 05:52 Labs: Abnormal Lab Results - Last 24 Hours (Table) 10/11/21 10/11/21 10/11/21 Range/Units 01:30 01:35 05:52 WBC 13.5 H (3.8-10.6) k/uL Neutrophils # 10.6 H (1.3-7.7) k/uL ABG pH 7.26 L (7.35-7.45) ABG pCO2 59 H (35-45) mmHg ABG pO2 67 L (83-108) mmHg ABG HCO3 26 H (21-25) mmol/L ABG Total CO2 28 H (19-24) mmol/L ABG O2 Saturation 88.0 L (94-97) % Chloride (98-107) mmol/L Carbon Dioxide (22-30) mmol/L Creatinine (0.66-1.25) mg/dL Glucose (74-99) mg/dL POC Glucose (mg/dL) 100 H (75-99) mg/dL 10/11/21 Range/Units 05:52 WBC (3.8-10.6) k/uL Neutrophils # (1.3-7.7) k/uL ABG pH (7.35-7.45) ABG pCO2 (35-45) mmHg ABG pO2 (83-108) mmHg ABG HCO3 (21-25) mmol/L ABG Total CO2 (19-24) mmol/L ABG O2 Saturation (94-97) % Chloride 108 H (98-107) mmol/L Carbon Dioxide 18 L (22-30) mmol/L Creatinine 0.64 L (0.66-1.25) mg/dL Glucose 115 H (74-99) mg/dL POC Glucose (mg/dL) (75-99) mg/dL Microbiology - Last 24 Hours (Table) 10/07/21 05:44 Blood Culture - Preliminary Blood No Growth after 96 hours 10/05/21 10:03 Blood Culture - Preliminary Blood No Growth after 120 hours 10/05/21 09:57 Blood Culture - Preliminary Blood No Growth after 120 hours Assessment and Plan Assessment: 1 Alcohol withdrawal syndrome in the form of delirium tremens. Precedex discontinued. Continues to require Haldol and Ativan. 2 Chronic alcoholism. 3 Hypertension. 4 Hyperlipidemia. 5 History of ongoing tobacco use. 6 History of chronic anxiety/depression disorder. 7 History of acid reflux disease. 8 Chronic liver disease secondary to alcohol abuse. 9 Febrile illness, cultures revealed no growth and procalcitonin 0.12. Continue Zosyn 1 more day 10 Right lower lobe infiltrate/atelectasis Plan: The patient was seen and evaluated Chest x-ray, ABGs and labs reviewed Continue Zosyn 1 more day Give Lasix 40 mg IVP 1 Titrate down the FiO2 as tolerated Utilizing incentive spirometer when cooperative Continue psychiatric medications per psych services Continue to monitor closely here in the ICU We will continue to follow I have personally seen and examined the patient, performed the documentation and the assessment and plan as written. Number of minutes spent on the visit: 10.
[2021-10-11 10:32] LABS: Appearance,Urine Cloudy (Clear); Bacteria,Urine Rare /hpf; Bilirubin,Urine 1+ (Negative); Blood,Urine Moderate (Negative); Color,Urine Yellow; Glucose,Urine (UA) Negative (Negative); Ketones,Urine 4+ (Negative); Leukocyte Esterase,Urine Large (Negative); Mucus,Urine Few /hpf; Nitrite,Urine Negative (Negative); PH, Urine 5.5 (5.0-8.0); Protein,Urine 1+ (Negative); RBC,Urine 31 /hpf (0-5); Specific Gravity,Urine 1.028 (1.001-1.035); Squamous Epithelial Cell,Urine 1 /hpf (0-4); Uric Acid Crystals,Urine Rare /hpf; WBC,Urine 41 /hpf (0-5)
--- NOTE | 2021-10-11 12:32 | PN ---
PROGRESS NOTE The patient was overnight by Dr. Allison. He was very lethargic, and his sedatives and all other medicines impacting his mental status were held. Psychiatry refused to address the issues of medications that they had prescribed. The patient is much more awake and alert. He is getting Zosyn for aspiration pneumonia. We are going to give him some Lasix for fluid overload. Chest x-ray was read as fluid overload. He is answering questions appropriately. pCO2 is , FiO2 67 36% FiO2, pH 7.26. He is on 6 L of oxygen. Lungs clear. Cardiovascular S1, S2. Abdomen is distended, nontender. He had some urinary retention yesterday, for which a Mendez catheter was placed. Constipation is being dealt with with suppositories. He has mild leukocytosis at 13.5, hemoglobin 14. Alcohol withdrawal, possible aspiration pneumonia, possible mild CHF. Confusion and altered mental status may be due to polypharmacy. Dr. Allison thinks he is better after being off a lot of his medicines. He remains on Zosyn. Possibly some diuretics will be needed for possible mild CHF. Prognosis guarded. MMODL / IJN: [id number] /
[2021-10-11] MEDS: LORazepam 1 MG TAB PO PRN (14:02)
--- NOTE | 2021-10-11 15:05 | P.CNNES ---
History of Present Illness Consult date: 10/11/21 Reason for Consult: acute mental status changes History of Present Illness: The patient is a 51-year-old male who is seen in neurologic consultation on October 11, 2021, via teleneurology. The patient was seen earlier on his admission, by neurology for symptoms of alcohol withdrawal. The patient was admitted to the hospital on September 25, 2021. At that time his desire was to get off of alcohol in a safe environment. The patient was subsequently placed on alcohol withdrawal protocol. Apparently there have been episodes of lethargy as well as agitation. Psychiatry has seen the patient and started him on high doses of Seroquel. Precedex was eventually weaned off. Since the wean of Precedex, the patient has been doing a little bit better. In addition to high-dose Seroquel, the patient is also receiving Librium, as well as doses of Ativan. Neurology is asked to see the patient at this time because of mental status changes and lethargy. Unfortunately, the patient has had episodes of difficulty and agitation. The patient himself reports that he has felt "anxious". He denies confusion. Past Medical History Past Medical History: GERD/Reflux, Hyperlipidemia, Hypertension Additional Past Medical History / Comment(s): Hx of pancreatitis. TONGUE LESION History of Any Multi-Drug Resistant Organisms: None Reported Past Surgical History: Cholecystectomy, Hernia Repair Additional Past Surgical History / Comment(s): SX ON NOSE TEEN FOR FX NOSE. COLONOSCOPY/EGD Past Anesthesia/Blood Transfusion Reactions: No Reported Reaction Past Psychological History: Anxiety, Bipolar, Depression Smoking Status: Current every day smoker Past Alcohol Use History: Abuse, Daily Additional Past Alcohol Use History / Comment(s): SMOKES 1 PPD SINCE AGE 11 Past Drug Use History: None Reported - Past Family History Mother Family Medical History: No Reported History Father Family Medical History: Pneumonia Medications and Allergies Home Medications Medication Instructions Recorded Confirmed Type Simvastatin 40 mg PO HS 03/10/16 09/25/21 History cloNIDine HCL [Catapres] 0.2 mg PO TID 03/10/16 09/25/21 History Metoprolol Succinate [Toprol XL] 200 mg PO DAILY 06/30/18 09/25/21 History Doxepin [SINEquan] 10 mg PO BID 04/30/21 09/25/21 History Metoclopramide [Reglan] 10 mg PO BID 04/30/21 09/25/21 History Sildenafil Citrate 50 mg PO DAILY PRN 04/30/21 09/25/21 History tiZANidine HCL 4 mg PO DAILY 04/30/21 09/25/21 History ALPRAZolam [Xanax] 1 mg PO BID 09/22/21 09/25/21 History HYDROcodone/APAP 7.5-325MG [[place] 1 tab PO TID 09/22/21 09/25/21 History 7.5-325] Omeprazole 40 mg PO BID 09/22/21 09/25/21 History QUEtiapine FUMARATE [SEROquel] 300 mg PO HS 09/22/21 09/25/21 History QUEtiapine XR [SEROquel XR] 150 mg PO HS 09/22/21 09/25/21 History Diltiazem Cd [Cardizem CD] 300 mg PO DAILY 09/25/21 09/25/21 History Allergies Allergy/AdvReac Type Severity Reaction Status Date / Time No Known Allergies Allergy Verified 09/25/21 17:41 Physical Examination - Vital Signs Vital Signs: Vital Signs Temp Pulse Resp BP Pulse Ox 10/11/21 07:00 112 H 21 172/101 92 L 10/11/21 06:00 99 19 155/88 95 10/11/21 05:00 90 23 148/85 95 10/11/21 04:00 97.7 F 91 18 141/78 92 L 10/11/21 03:00 90 21 147/90 90 L 10/11/21 01:00 95 21 142/84 86 L 10/11/21 00:00 98.1 F 93 26 H 151/95 87 L 10/10/21 23:00 99 25 H 139/88 94 L 10/10/21 22:00 97 20 136/83 92 L 10/10/21 21:00 101 H 22 157/107 92 L 10/10/21 20:00 98.3 F 100 26 H 161/102 91 L 10/10/21 19:00 111 H 24 145/94 91 L 10/10/21 18:00 98 25 H 153/111 93 L 10/10/21 17:00 97 27 H 172/92 92 L 10/10/21 16:00 100.5 F H 101 H 26 H 149/99 91 L 10/10/21 15:00 100 17 152/96 100 10/10/21 14:00 112 H 12 148/96 90 L 10/10/21 13:00 109 H 25 H 144/94 90 L 10/10/21 12:00 98.4 F 104 H 20 179/102 91 L 10/10/21 11:00 101 H 11 L 157/121 94 L 10/10/21 10:00 110 H 24 167/110 91 L 10/10/21 09:00 108 H 14 137/95 92 L 10/10/21 08:00 100.1 F H 96 22 146/130 90 L Intake and Output 10/10/21 10/11/21 10/11/21 21:59 06:59 14:59 Intake Total 75 Output Total 40 Balance 35 Intake: IV 75 Piperacillin-Tazobactam 3 .375 gm In Sodium Chloride 0.9% 100 ml @ 25 mls/hr IVPB Q8HR [facility] Rx# :[id number] Sodium Chloride 0.9% 1, 75 000 ml @ 75 mls/hr IV . [id number] [facility] Rx#:[id number] Output: Urine 40 Other: Voiding Method # Voids # Bowel Movements Weight Gen.: The patient is reclining in the bed. He is well-nourished, well-developed and in no acute distress. HEENT: Head is atraumatic, normocephalic. Fundus not visualized. There is no scleral icterus. Mucous membranes are moist. Neck: Supple, without carotid bruits Heart: Regular rate and rhythm Lungs: Essentially clear to auscultation. The patient's O2 sats is 92% on 6 L of O2 per nasal cannula. Neurological examination Mental status: The patient is awake and alert. Speech is clear. There is no dysarthria or aphasia. The patient answers questions appropriately. He follows instructions appropriately. He is aware of why he came into the hospital. He is oriented 3. Cranial nerves: Pupils are equal at 5 mm and reactive. Visual mendez are full to confrontation. Extraocular movements are intact. There is no nystagmus. Facial sensation is intact. There is no facial asymmetry. Hearing is grossly intact. Uvula and palate are midline. Shoulder shrug is symmetric. Tongue protrudes midline. Motor: Upper extremity strength is 5/5. Lower extremity strength 4-5/5. Coordination: Finger to nose and rapid alternating movements are intact. There is no tremor. Deep tendon reflexes: 2-3+/4+ in the upper extremities. 2+/4+ at the right knee. 1+/4+ at the left knee. Right plantar responses flexor. Left plantar responses not assessed secondary to boot, protecting heel wound. Sensation: Grossly intact to light touch throughout. Gait: Not assessed Results - Laboratory Findings CBC and BMP: 10/11/21 05:52 10/11/21 05:52 Abnormal Lab Findings: Abnormal Labs 09/25/21 09/25/21 09/26/21 15:24 15:25 06:49 WBC RBC Hgb Hct Plt Count MPV Immature Gran # Neutrophils # Monocytes # ABG pH ABG pCO2 ABG pO2 ABG HCO3 ABG Total CO2 ABG O2 Saturation Sodium Potassium Chloride Carbon Dioxide 14 L BUN Creatinine BUN/Creatinine Ratio Glucose POC Glucose (mg/dL) 122 H Calcium Phosphorus 4.9 H GGT 416 H AST 205 H ALT 98 H Alkaline Phosphatase C-Reactive Protein Total Protein 8.6 H Albumin 5.4 H Procalcitonin Urine Protein 2+ H Urine Ketones 2+ H Urine Blood Moderate H Urine Mucus Rare H U Tricyclic Antidepress Detected H Serum Alcohol 208 H* 09/26/21 09/26/21 09/27/21 12:14 16:26 04:04 WBC RBC Hgb Hct Plt Count 137 L MPV 12.3 H Immature Gran # 0.06 H Neutrophils # Monocytes # ABG pH ABG pCO2 ABG pO2 ABG HCO3 ABG Total CO2 ABG O2 Saturation Sodium Potassium Chloride Carbon Dioxide BUN Creatinine BUN/Creatinine Ratio Glucose POC Glucose (mg/dL) 194 H 167 H Calcium Phosphorus GGT AST ALT Alkaline Phosphatase C-Reactive Protein Total Protein Albumin Procalcitonin Urine Protein Urine Ketones Urine Blood Urine Mucus U Tricyclic Antidepress Serum Alcohol 09/27/21 09/27/21 09/27/21 04:04 06:40 11:37 WBC RBC Hgb Hct Plt Count MPV Immature Gran # Neutrophils # Monocytes # ABG pH ABG pCO2 ABG pO2 ABG HCO3 ABG Total CO2 ABG O2 Saturation Sodium Potassium 3.1 L Chloride Carbon Dioxide BUN 5.3 L Creatinine BUN/Creatinine Ratio 6.63 L Glucose 129 H POC Glucose (mg/dL) 131 H 140 H Calcium Phosphorus GGT AST 214 H ALT 123 H Alkaline Phosphatase C-Reactive Protein Total Protein Albumin Procalcitonin Urine Protein Urine Ketones Urine Blood Urine Mucus U Tricyclic Antidepress Serum Alcohol 09/27/21 09/28/21 09/28/21 12:17 06:40 06:40 WBC RBC Hgb Hct Plt Count 133 L MPV Immature Gran # Neutrophils # Monocytes # ABG pH ABG pCO2 ABG pO2 ABG HCO3 ABG Total CO2 ABG O2 Saturation Sodium Potassium 3.2 L Chloride Carbon Dioxide BUN 7 L Creatinine BUN/Creatinine Ratio Glucose 136 H POC Glucose (mg/dL) 170 H Calcium Phosphorus GGT AST 247 H ALT 154 H Alkaline Phosphatase C-Reactive Protein Total Protein Albumin Procalcitonin Urine Protein Urine Ketones Urine Blood Urine Mucus U Tricyclic Antidepress Serum Alcohol 09/29/21 09/29/21 09/30/21 06:22 06:22 09:09 WBC RBC Hgb Hct Plt Count 123 L 116 L MPV Immature Gran # Neutrophils # Monocytes # ABG pH ABG pCO2 ABG pO2 ABG HCO3 ABG Total CO2 ABG O2 Saturation Sodium Potassium Chloride Carbon Dioxide 20 L BUN 6 L Creatinine BUN/Creatinine Ratio Glucose 125 H POC Glucose (mg/dL) Calcium Phosphorus GGT AST ALT Alkaline Phosphatase C-Reactive Protein Total Protein Albumin Procalcitonin Urine Protein Urine Ketones Urine Blood Urine Mucus U Tricyclic Antidepress Serum Alcohol 09/30/21 10/01/21 10/01/21 09:09 05:50 05:50 WBC RBC Hgb Hct Plt Count 111 L MPV Immature Gran # Neutrophils # Monocytes # ABG pH ABG pCO2 ABG pO2 ABG HCO3 ABG Total CO2 ABG O2 Saturation Sodium Potassium 3.3 L Chloride 108 H 109 H Carbon Dioxide BUN 6 L 5 L Creatinine BUN/Creatinine Ratio Glucose 127 H 122 H POC Glucose (mg/dL) Calcium 8.3 L Phosphorus 4.7 H GGT AST 128 H 113 H ALT 133 H 113 H Alkaline Phosphatase C-Reactive Protein Total Protein Albumin Procalcitonin Urine Protein Urine Ketones Urine Blood Urine Mucus U Tricyclic Antidepress Serum Alcohol 10/01/21 10/02/21 10/02/21 11:52 05:43 05:43 WBC RBC Hgb Hct Plt Count 131 L MPV Immature Gran # Neutrophils # Monocytes # 1.1 H ABG pH ABG pCO2 ABG pO2 ABG HCO3 ABG Total CO2 ABG O2 Saturation Sodium Potassium Chloride Carbon Dioxide BUN 5 L Creatinine BUN/Creatinine Ratio Glucose 118 H POC Glucose (mg/dL) 136 H Calcium 8.3 L Phosphorus GGT AST 94 H ALT 89 H Alkaline Phosphatase 131 H C-Reactive Protein Total Protein Albumin Procalcitonin Urine Protein Urine Ketones Urine Blood Urine Mucus U Tricyclic Antidepress Serum Alcohol 10/03/21 10/03/21 10/04/21 05:44 05:44 10:22 WBC RBC Hgb Hct Plt Count MPV Immature Gran # Neutrophils # Monocytes # 1.2 H 1.2 H ABG pH ABG pCO2 ABG pO2 ABG HCO3 ABG Total CO2 ABG O2 Saturation Sodium 136 L Potassium Chloride 108 H Carbon Dioxide 21 L BUN 6 L Creatinine BUN/Creatinine Ratio Glucose 104 H POC Glucose (mg/dL) Calcium 8.3 L Phosphorus GGT AST ALT Alkaline Phosphatase C-Reactive Protein Total Protein Albumin Procalcitonin Urine Protein Urine Ketones Urine Blood Urine Mucus U Tricyclic Antidepress Serum Alcohol 10/04/21 10/05/21 10/05/21 10:22 09:57 09:57 WBC RBC 4.06 L Hgb 12.6 L Hct 37.1 L Plt Count MPV Immature Gran # Neutrophils # Monocytes # ABG pH ABG pCO2 ABG pO2 ABG HCO3 ABG Total CO2 ABG O2 Saturation Sodium Potassium Chloride Carbon Dioxide BUN 7 L 6 L Creatinine BUN/Creatinine Ratio Glucose 110 H 118 H POC Glucose (mg/dL) Calcium Phosphorus GGT AST ALT Alkaline Phosphatase 137 H C-Reactive Protein Total Protein Albumin Procalcitonin Urine Protein Urine Ketones Urine Blood Urine Mucus U Tricyclic Antidepress Serum Alcohol 10/05/21 10/07/21 10/07/21 09:57 05:44 05:44 WBC RBC 4.15 L Hgb 12.6 L Hct 38.9 L Plt Count MPV Immature Gran # Neutrophils # Monocytes # 1.1 H ABG pH ABG pCO2 ABG pO2 ABG HCO3 ABG Total CO2 ABG O2 Saturation Sodium Potassium Chloride 112 H Carbon Dioxide BUN 8 L Creatinine BUN/Creatinine Ratio Glucose 112 H POC Glucose (mg/dL) Calcium 8.2 L Phosphorus GGT AST ALT Alkaline Phosphatase C-Reactive Protein Total Protein 5.9 L Albumin 3.0 L Procalcitonin 0.10 H Urine Protein Urine Ketones Urine Blood Urine Mucus U Tricyclic Antidepress Serum Alcohol 10/07/21 10/08/21 10/08/21 05:44 05:44 05:44 WBC RBC 4.10 L Hgb 12.3 L Hct 37.8 L Plt Count MPV Immature Gran # Neutrophils # Monocytes # ABG pH ABG pCO2 ABG pO2 ABG HCO3 ABG Total CO2 ABG O2 Saturation Sodium Potassium Chloride 108 H Carbon Dioxide BUN 8 L Creatinine BUN/Creatinine Ratio Glucose POC Glucose (mg/dL) Calcium 8.2 L Phosphorus GGT AST ALT Alkaline Phosphatase C-Reactive Protein 29.1 H Total Protein Albumin Procalcitonin 0.12 H Urine Protein Urine Ketones Urine Blood Urine Mucus U Tricyclic Antidepress Serum Alcohol 10/09/21 10/09/21 10/10/21 05:45 05:45 05:55 WBC RBC 3.98 L 4.28 L Hgb 12.2 L Hct 36.6 L Plt Count MPV Immature Gran # Neutrophils # Monocytes # ABG pH ABG pCO2 ABG pO2 ABG HCO3 ABG Total CO2 ABG O2 Saturation Sodium Potassium Chloride Carbon Dioxide BUN 7 L Creatinine BUN/Creatinine Ratio Glucose 108 H POC Glucose (mg/dL) Calcium Phosphorus GGT AST ALT Alkaline Phosphatase 128 H C-Reactive Protein Total Protein 6.0 L Albumin 3.1 L Procalcitonin Urine Protein Urine Ketones Urine Blood Urine Mucus U Tricyclic Antidepress Serum Alcohol 10/10/21 10/11/21 10/11/21 05:55 01:30 01:35 WBC RBC Hgb Hct Plt Count MPV Immature Gran # Neutrophils # Monocytes # ABG pH 7.26 L ABG pCO2 59 H ABG pO2 67 L ABG HCO3 26 H ABG Total CO2 28 H ABG O2 Saturation 88.0 L Sodium Potassium Chloride Carbon Dioxide 18 L BUN Creatinine BUN/Creatinine Ratio Glucose 100 H POC Glucose (mg/dL) 100 H Calcium Phosphorus GGT AST ALT Alkaline Phosphatase C-Reactive Protein Total Protein Albumin Procalcitonin Urine Protein Urine Ketones Urine Blood Urine Mucus U Tricyclic Antidepress Serum Alcohol 10/11/21 10/11/21 05:52 05:52 WBC 13.5 H RBC Hgb Hct Plt Count MPV Immature Gran # Neutrophils # 10.6 H Monocytes # ABG pH ABG pCO2 ABG pO2 ABG HCO3 ABG Total CO2 ABG O2 Saturation Sodium Potassium Chloride 108 H Carbon Dioxide 18 L BUN Creatinine 0.64 L BUN/Creatinine Ratio Glucose 115 H POC Glucose (mg/dL) Calcium Phosphorus GGT AST ALT Alkaline Phosphatase C-Reactive Protein Total Protein Albumin Procalcitonin Urine Protein Urine Ketones Urine Blood Urine Mucus U Tricyclic Antidepress Serum Alcohol Assessment and Plan Assessment: 1. Intermittent lethargy and agitation, status post alcohol withdrawal. The patient is approximately 3 weeks out from his last dose of alcohol and so is no longer going through withdrawal. Likely mental status changes are secondary to medication effect and/or infection. 2. Leukocytosis 3. Hypoxia Plan: 1. Will check urinalysis 2. Continue to wean sedative medications 3. Attempt to get patient out of the bed, into a chair and try to keep him awake during the day so that he is able to sleep at night, appropriately, without medication Thank you for allowing us to participate in the care of this patient. No further neurologic intervention is needed at this time. Please call with questions. Time with Patient: Greater than 30 (spent 40 minutes with patient via telemedicine)
--- NOTE | 2021-10-11 15:38 | PN ---
PROGRESS NOTE FOLLOW-UP NOTE: Patient remains confused at rest. His heart rate is around 106 beats per minute. Blood pressure is better controlled at 134/85. Chest exam reveals good air entry bilaterally. Heart exam reveals first and second heart sounds. No gallop. Examination of extremities did not reveal any edema. Labs show a hemoglobin of 14, platelet count is 384. Potassium is 4.6. Creatinine is . ASSESSMENT: Hypertension, well controlled. Continue current medications and we will see the patient on an as-needed basis. MMODL / IJN: [id number] /
[2021-10-11] MEDS ORDERED: bisacodyL 10 MG SUPP RECTAL PRN (16:55)
[2021-10-11 17:25] LABS: Glucose,Whole Blood 98 mg/dL (75-99)
--- NOTE | 2021-10-11 18:01 | CT ---
EXAMINATION TYPE: CT brain wo con DATE OF EXAM: 10/11/2021 COMPARISON: 08/17/2019 HISTORY: AMS, Alcohol withdrawl.. CT DLP: 1247.4 mGycm Automated exposure control for dose reduction was used. ventricles have normal size. There is no mass effect or midline shift. There is no sign of intracrani al hemorrhage. The calvarium is intact. Skull base is intact. There is fairly normal aeration of the mastoid sinuses. IMPRESSION: Negative unenhanced head CT scan. No change.
--- NOTE | 2021-10-11 18:05 | P.PN ---
Subjective Progress Note Date: 10/08/21 10/08/2021: Patient states he is feeling "not good". He denies headache. Denies dizziness. No chest pain. He is slightly more alert, less encephalopathic today as compared to yesterday. 10/07/2021: Patient was seen for a follow-up. Patient initially seen by Dr. Shawn Allison on 09/27/2021. Please refer to his note for details. Patient has history of alcoholism. Patient is currently on Precedex at 1 mcg/kg/h. Patient is on 4 L nasal cannula. Patient was quite agitated last night. When sedation is decreased, patient gets agitated. Patient somnolent at this time. Still encephalopathic. Objective - Vital Signs Vital signs: Vital Signs Temp 98.5 F 10/11/21 16:00 Pulse 103 H 10/11/21 17:00 Resp 14 10/11/21 17:00 BP 157/118 10/11/21 17:00 Pulse Ox 94 L 10/11/21 17:00 Intake & Output 10/10/21 10/11/21 10/11/21 17:59 06:59 18:59 Intake Total 825 Output Total 1615 Balance -790 Weight Intake: IV 825 Piperacillin-Tazobactam 3 .375 gm In Sodium Chloride 0.9% 100 ml @ 25 mls/hr IVPB Q8HR [facility] Rx# :[id number] Sodium Chloride 0.9% 1, 825 000 ml @ 75 mls/hr IV . [id number] [facility] Rx#:[id number] Intake, IV Titration Amount Dexmedetomidine/0.9% NaCl (Pmx) 400 mcg In Empty Bag 1 bag @ 0.2 MCG/KG/HR 6.577 mls/hr IV .[id number] [facility] Rx#:[id number] Output: Urine 1615 Other: Voiding Method Indwelling Catheter # Voids # Bowel Movements - Exam Patient is off sedation for last 2 and half hours. Patient is more alert and awake, although still somewhat encephalopathic. Patient knows it is September and states the year is 2020. Patient's head is more towards the midline. Pupils are equal, round and reacting. Extraocular muscles are intact. Face is symmetric. His visual mendez could not be tested because of noncooperation. Face appears symmetric. Reflexes are 1+ in the upper limbs, 2 at the knees 1 ankles and plantars are flat bilaterally. Cerebellar functions, sensations and gait cannot be tested. - Labs CBC & Chem 7: 10/11/21 05:52 10/11/21 05:52 Labs: Abnormal Lab Results - Last 24 Hours (Table) 10/11/21 10/11/21 10/11/21 Range/Units 01:30 01:35 05:52 WBC 13.5 H (3.8-10.6) k/uL Neutrophils # 10.6 H (1.3-7.7) k/uL ABG pH 7.26 L (7.35-7.45) ABG pCO2 59 H (35-45) mmHg ABG pO2 67 L (83-108) mmHg ABG HCO3 26 H (21-25) mmol/L ABG Total CO2 28 H (19-24) mmol/L ABG O2 Saturation 88.0 L (94-97) % Chloride (98-107) mmol/L Carbon Dioxide (22-30) mmol/L Creatinine (0.66-1.25) mg/dL Glucose (74-99) mg/dL POC Glucose (mg/dL) 100 H (75-99) mg/dL Urine Protein (Negative) Urine Ketones (Negative) Urine Blood (Negative) Urine Bilirubin (Negative) Ur Leukocyte Esterase (Negative) Urine RBC (0-5) /hpf Urine WBC (0-5) /hpf Uric Acid Crystals (None) /hpf Urine Bacteria (None) /hpf Urine Mucus (None) /hpf 10/11/21 10/11/21 Range/Units 05:52 10:06 WBC (3.8-10.6) k/uL Neutrophils # (1.3-7.7) k/uL ABG pH (7.35-7.45) ABG pCO2 (35-45) mmHg ABG pO2 (83-108) mmHg ABG HCO3 (21-25) mmol/L ABG Total CO2 (19-24) mmol/L ABG O2 Saturation (94-97) % Chloride 108 H (98-107) mmol/L Carbon Dioxide 18 L (22-30) mmol/L Creatinine 0.64 L (0.66-1.25) mg/dL Glucose 115 H (74-99) mg/dL POC Glucose (mg/dL) (75-99) mg/dL Urine Protein 1+ H (Negative) Urine Ketones 4+ H (Negative) Urine Blood Moderate H (Negative) Urine Bilirubin 1+ H (Negative) Ur Leukocyte Esterase Large H (Negative) Urine RBC 31 H (0-5) /hpf Urine WBC 41 H (0-5) /hpf Uric Acid Crystals Rare H (None) /hpf Urine Bacteria Rare H (None) /hpf Urine Mucus Few H (None) /hpf Microbiology - Last 24 Hours (Table) 10/11/21 10:06 Urine Culture - Preliminary Urine,Clean Catch 10/05/21 09:57 Blood Culture - Final Blood No Growth after 144 hours 10/05/21 10:03 Blood Culture - Final Blood No Growth after 144 hours 10/07/21 05:44 Blood Culture - Preliminary Blood No Growth after 96 hours Assessment and Plan Assessment: 51-year-old male came with alcohol intoxication, now with alcohol withdrawal syndrome with delirium tremens. History of Hypertension. Hyperlipidemia History of significant alcohol use in which he was sober for 10 years but relapsed in the last few months Tobacco use Chronic liver disease Right lower lobe infiltrate. Plan: Continue thiamine. Patient's mentation has improved as compared to yesterday. We'll defer alcohol withdrawal management to the primary team Patient is getting high temperatures. ID consult reviewed. Brodie started. Recommend the patient to pursue with alcohol anonymous rehab or other rehab that would assist him on cessation of alcohol. Patient's limited examination is nonfocal. Neurology will sign off. Please call neurology if any other concerns.
--- NOTE | 2021-10-11 18:16 | P.PN ---
Progress Note - Text Interval history: chief writer went to see patient again today at the bedside. He was given Haldol IM at 1900 yesterday and was given Ativan IM at 2005 yesterday and by mouth at 2 PM today. He is able to state his name and that he is in [place], but he states that it is Tuesday, 2020, and he is at [facility]. He denies suicidal thoughts ho micidal thoughts or hallucinations. Mental status exam: Patient laying in bed on side. He has garbled speech. poverty of content and speech (improved from yesterday). Slow rate of speech. concrete. constricted affect. Poor attention span. AAOx1-2 (improving). Denies any auditory hallucinations or visual hallucinations. Poor insight/judgement Assessment: Delirium, likely secondary to alcohol withdrawal, medications/sedatives and prolonged ICU stay, improving Alcohol dependence, currently in withdrawal history of anxiety and depression Plan: At this time will continue to follow along to help manage patients delirium through med mgt. Unclear whether or not patient will need inpatient psychiatric care or not. Patient did mention that he would want to go rehab once discharged. -please attempt to decrease use of BZD (ativan) and other sedatives as much as possible as this will increase patients confusion/delirium. continue seroquel to 50 mg daily and 400 mg qhs for psychosis/agitation. Taper librium to 50 mg tid. continue melatonin for sleep regualtion. -PRN Haldol both IM and PO for agitaiton/anxiety. please attempt to use haldol more instead of ativan as ativan will make patient more confused. -continue with CIWA -will continue to follow along as needed, please call with any questions
[2021-10-11] MEDS: ATORVASTATIN 20 MG TAB PO SCH (20:58)
[2021-10-11] MEDS: QUEtiapine 200 MG TAB PO SCH (20:58)
[2021-10-11] MEDS: HALOPERIDOL LACTATE 5 MG/ML 1 ML VIAL IM PRN (22:25)
[2021-10-12] MEDS: PIPERACILLIN-TAZOBACTAM 3.375 GM in SODIUM CHLORIDE 0.9% 100 ML IVPB SCH ×4 (00:53→23:29)
[2021-10-12] MEDS: HALOPERIDOL LACTATE 5 MG/ML 1 ML VIAL IM PRN (04:25)
[2021-10-12 06:19] LABS: Basophils # (A) 0.1 k/uL (0-0.2); Basophils % (A) 1 %; Eosinophils # (A) 0.3 k/uL (0-0.7); Eosinophils % (A) 2 %; HCT 39.4 % (39.0-53.0); HGB 12.8 gm/dL (13.0-17.5); Hypochromasia Slight; Lymphocytes # (A) 1.5 k/uL (1.0-4.8); Lymphocytes % (A) 14 %; MCH 30.4 pg (25.0-35.0); MCHC 32.5 g/dL (31.0-37.0); MCV 93.6 fL (80.0-100.0); Mean Platelet Volume 9.7; Monocytes % (A) 9 %; Neutrophils # (A) 7.7 k/uL (1.3-7.7); Neutrophils % (A) 71 %; Platelet Count 408 k/uL (150-450); RBC 4.21 m/uL (4.30-5.90); RDW 13.9 % (11.5-15.5); WBC 10.9 k/uL (3.8-10.6)
[2021-10-12 06:25] LABS: African American GFR (CKD) >90 (>60 ml/min/1.73 sqM); Anion Gap 8 mmol/L; Blood Urea Nitrogen 13 mg/dL (9-20); Calcium 8.7 mg/dL (8.4-10.2); Carbon Dioxide 28 mmol/L (22-30); Chloride 108 mmol/L (98-107); Glucose 112 mg/dL (74-99); Non-African American GFR(CKD) >90 (>60 ml/min/1.73 sqM); Potassium 3.4 mmol/L (3.5-5.1); Sodium 144 mmol/L (137-145)
[2021-10-12] MEDS: PANTOPRAZOLE 40 MG TABLET PO SCH ×2 (07:07→17:01)
[2021-10-12] MEDS: POTASSIUM BICARBONATE/CIT AC 20 MEQ TABLET.EFF NG-TUBE SCH ×2 (07:07→08:22)
--- NOTE | 2021-10-12 08:16 | P.PN ---
Subjective Progress Note Date: 10/12/21 Principal diagnosis: Hypertension urgency The patient is a 51-year-old gentleman with a past medical history significant for chronic alcohol use as well as hypertension and dyslipidemia and smoking who was admitted to the hospital with alcohol withdrawal symptoms and elevated blood pressure. He was seen at this morning. He continues to be agitated/having change in mental status and confusion. The pressure unfortunately continues to be elevated. He was noted to be sweating profoundly. I'm going to add chlorthalidone to the current medical regimen. Beside that on going to obtain troponin to rule out any acute coronary event. The patient did not have any chest pain or chest discomfort. The echo showed normal left ventricular systolic function without any significant valvular abnormalities. Meanwhile we will continue the current medical regimen and add chlorthalidone to the current medical regimen. Objective - Vital Signs Vital signs: Vital Signs Temp 99.7 F H 10/12/21 08:00 Pulse 101 H 10/12/21 08:00 Resp 24 10/12/21 08:00 BP 171/107 10/12/21 08:00 Pulse Ox 93 L 10/12/21 08:00 Intake & Output 10/11/21 10/12/21 10/12/21 18:59 06:59 18:59 Intake Total 900 900 250 Output Total 1665 455 75 Balance -765 445 175 Weight 118.8 kg Intake: IV 900 900 250 Piperacillin-Tazobactam 3 100 .375 gm In Sodium Chloride 0.9% 100 ml @ 25 mls/hr IVPB Q8HR [facility] Rx# :[id number] Sodium Chloride 0.9% 1, 900 900 150 000 ml @ 75 mls/hr IV . [id number] [facility] Rx#:[id number] Output: Urine 1665 455 75 Other: Voiding Method Indwelling Catheter Indwelling Catheter - Constitutional General appearance: Present: mild distress - Respiratory Respiratory: bilateral: diminished - Cardiovascular Rhythm: regular - Labs CBC & Chem 7: 10/12/21 05:41 10/12/21 05:41 Labs: Abnormal Lab Results - Last 24 Hours (Table) 10/11/21 10/12/21 10/12/21 Range/Units 10:06 05:41 05:41 WBC 10.9 H (3.8-10.6) k/uL RBC 4.21 L (4.30-5.90) m/uL Hgb 12.8 L (13.0-17.5) gm/dL Potassium 3.4 L (3.5-5.1) mmol/L Chloride 108 H (98-107) mmol/L Glucose 112 H (74-99) mg/dL Urine Protein 1+ H (Negative) Urine Ketones 4+ H (Negative) Urine Blood Moderate H (Negative) Urine Bilirubin 1+ H (Negative) Ur Leukocyte Esterase Large H (Negative) Urine RBC 31 H (0-5) /hpf Urine WBC 41 H (0-5) /hpf Uric Acid Crystals Rare H (None) /hpf Urine Bacteria Rare H (None) /hpf Urine Mucus Few H (None) /hpf Microbiology - Last 24 Hours (Table) 10/07/21 05:44 Blood Culture - Preliminary Blood No Growth after 120 hours 10/11/21 10:06 Urine Culture - Preliminary Urine,Clean Catch 10/05/21 09:57 Blood Culture - Final Blood No Growth after 144 hours 10/05/21 10:03 Blood Culture - Final Blood No Growth after 144 hours Assessment and Plan Assessment: Assessment #1 alcohol withdrawal #2 uncontrolled blood pressure/hypertension urgency #3 history of smoking #4. Profound sweating #5 multiple comorbid conditions Plan #1 add chlorthalidone to the current medical regimen #2 continue the rest of his medications #3 rule out acute coronary event. Obtain serial cardiac enzymes #4 the echo showed normal left ventricle systolic function #5 follow-up with the patient
[2021-10-12] MEDS: chlordiazePOXIDE 25 MG CAP PO SCH (08:22)
[2021-10-12] MEDS: lisinopriL 10 MG TAB PO SCH (08:22)
[2021-10-12] MEDS: HEPARIN SODIUM,PORCINE/PF 5,000 UNIT/0.5 ML SYRINGE SQ SCH ×2 (08:23→21:01)
[2021-10-12] MEDS: THIAMINE 100 MG TAB PO SCH (08:23)
[2021-10-12] MEDS: DILTIAZEM CD 300 MG CAP.ER.24H PO SCH (08:24)
[2021-10-12] MEDS: METOPROLOL SUCCINATE (ER) 100 MG TAB.ER.24H PO SCH (08:24)
[2021-10-12] MEDS: QUEtiapine 50 MG TAB PO SCH (08:24)
[2021-10-12] MEDS: NICOTINE 21MG/24HR PATCH TRANSDERM SCH (08:24)
[2021-10-12] MEDS: METOCLOPRAMIDE 10 MG TAB PO SCH ×2 (08:24→21:01)
[2021-10-12] MEDS: CHLORTHALIDONE 25 MG TAB PO SCH (08:25)
[2021-10-12] MEDS: SODIUM CHLORIDE 0.9% 1,000 ML IV SCH (13:04)
--- NOTE | 2021-10-12 13:53 | PN ---
PROGRESS NOTE This is a 51-year-old white male with alcohol withdrawal syndrome, delirium secondary to alcohol withdrawal and maybe polysubstance abuse. His hypertension acceleration appears to be improving. Aspiration pneumonia appears to be improving. He is more talkative each day. Temperature 97.7, pulse 90s to low 100s, respiratory rate 25 to 30. He is 4 L has been 93 to 91 up on 2 L. Blood pressure is 136/95, last blood pressure down from 140s to 170s systolic. Cardiovascular S1-S2. Psych: He appears somnolent but improved. Lungs with transmitted upper airway sounds. Brain CT was negative. Hematology negative Homans. Cardiology Dr. Coleman had seen him. He remains in the ICU. Continue current treatments. Follow up in the next 24 to 48 hours. Wean medicines as mentioned per Psychiatry and Neurology and inpatient psych daniel treatment or send to a polysubstance abuse facility. Continue to wean medicines. Control hypertension. Prognosis guarded. MMODL / IJN: [id number] /
--- NOTE | 2021-10-12 14:01 | P.PN ---
Subjective Progress Note Date: 10/12/21 Principal diagnosis: Progress note He was seen today at ICU Progress was reviewed with ICU staff. I note that elevated Blood pressure is the major medical problem. Since he has passed through the alcohol withdrawal phase, blood pressure change was very unlikely the factor. Chlorodione was started by medical team. he would be checked for renal endocrine pathology. Episodic hypertension was unrelated to his underlying psychiatricc condition of psychosis. He was lying comfortably in bed in no apparent distress. He was on nasal prong ; hypoxia was managed and electrolytes were monitored closely. His CBC was monitored for any infection or sepsis whcih would othersied explain his delirium. S; He responded to my verbal request after I identified myself as the psychiatrist for [facility] on behalf of Dr. Wei. He tried to communicate with much dysarthia and "garbled speech". He was mis-oriented to time but not to place. He did not admit to hallucinations : visual or auditory. He was detached from the surroundings and could not provide any meaningful data as to his admission circumstances. O: He did not have any tremor and made no attempt to pull out any of the tubing. He was visually confused and disoriented to place and time not to people. He was somewhat subdued and left the tray of food lying around as if he was indifferent. He has no insight into his condition A: Unresolved Delirium related to previousl history of polysubstance abuse: he may still having residual effects from non-alcohol substances of abuse; eg MDMA cyrstal and cannbis prolonged withdrawal retarded passive delirium related to substance cocaine- psychosis . schizaffective disorder is the underlying pre-existing condition plan: 1. Continue to monitor delirium r/o unlikely pheochromocytoma. thyroid dysfunction 2. ICU-related psychsis : related to prolonged stay 3. Adjust Rx to rule out drug-induced delirium switch librium to Gabapentin 100 mg po tid 4. Swtich seroquel to saphris low dosage 5. await blood pressure to be stabilized Objective - Vital Signs Vital signs: Vital Signs Temp 99.0 F 10/12/21 12:00 Pulse 105 H 10/12/21 13:00 Resp 25 H 10/12/21 13:00 BP 143/90 10/12/21 13:00 Pulse Ox 93 L 10/12/21 13:00 Intake & Output 0310/12/21 10/12/21 18:59 06:59 18:59 Intake Total 900 900 625 Output Total 1665 455 465 Balance -765 445 160 Weight 118.8 kg Intake: IV 900 900 625 Piperacillin-Tazobactam 3 100 .375 gm In Sodium Chloride 0.9% 100 ml @ 25 mls/hr IVPB Q8HR [facility] Rx# :[id number] Sodium Chloride 0.9% 1, 900 900 525 000 ml @ 75 mls/hr IV . [id number] [facility] Rx#:[id number] Output: Urine 1669 414 465 Other: Voiding Method Indwelling Catheter Indwelling Catheter Indwelling Catheter - Labs CBC & Chem 7: 10/12/21 05:41 10/12/21 05:41 Labs: Abnormal Lab Results - Last 24 Hours (Table) 10/12/21 10/12/21 Range/Units 05:41 05:41 WBC 10.9 H (3.8-10.6) k/uL RBC 4.21 L (4.30-5.90) m/uL Hgb 12.8 L (13.0-17.5) gm/dL Potassium 3.4 L (3.5-5.1) mmol/L Chloride 108 H (98-107) mmol/L Glucose 112 H (74-99) mg/dL Microbiology - Last 24 Hours (Table) 10/11/21 10:06 Urine Culture - Final Urine,Clean Catch 10/07/21 05:44 Blood Culture - Preliminary Blood No Growth after 120 hours 10/05/21 09:57 Blood Culture - Final Blood No Growth after 144 hours 10/05/21 10:03 Blood Culture - Final Blood No Growth after 144 hours
--- NOTE | 2021-10-12 15:16 | P.PN ---
Subjective Progress Note Date: 10/12/21 52-year-old male patient, alcoholism, also known to have hypertension and hyperlipidemia, came into the emergency department on 09/25/2021 for alcohol withdrawal symptoms. The patient had alcohol drinker and he has been apparently drinking heavily over the past 2 weeks. Note that his history of alcoholism has been on many years and the patient has remained sober for around 10 years until couple of months ago when he started drinking again and he has been drinking a fifth of vodka on a daily basis. He was supposed to go to rehabilitation and he end up in our hospital. 10/12/2021, the patient continues to have issues with encephalopathy. Unfortunately, over the past 1 week, the patient has not shown for recovered his underlying mental status. He continues to have altered mentation, occasional agitation and restlessness. My evaluation was limited this morning as the patient was sedated. The patient was given Haldol in the early childhood assistant hours 5 mg IM at around 4 AM and the patient was also given 2 mg of Ativan throughout the night. Noted the patient was requiring large doses of medications including a combination of benzodiazepines and Haldol to control his agitation. Meanwhil e, the patient is also on Seroquel a total of 250 mg on a daily basis and the Librium was taken off the medication list. No clear indication for an underlying aspiration pneumonia. There may be a component of UTI. The patient was started on IV Zosyn. The patient remains on oxygen at 3-4 L per minute nasal cannula. Cardiology is also seeing him regarding his blood pressure control. He is currently on clonidine patch 0.3 mg every 7 days. The patient is also taking Cardizem CD 300 mg on a daily basis and metoprolol XL 200 mg on a daily basis. He is on normal saline at the rate of 75 mL an hour. His blood work shows a white cell count of 10.9 with hemoglobin of 12.8. Potassium is at 3.4. BUN is at 30 with a creatinine of 0.7. Troponin is at 0.02. He is tolerating diet when he is awake and his eating small portions. Objective - Vital Signs Vital signs: Vital Signs Temp 99.0 F 10/12/21 12:00 Pulse 98 10/12/21 15:00 Resp 20 10/12/21 15:00 BP 156/90 10/12/21 15:00 Pulse Ox 92 L 10/12/21 15:00 Intake & Output 10/11/21 10/12/21 10/12/21 18:59 06:59 18:59 Intake Total 900 900 775 Output Total 1665 455 625 Balance -765 445 150 Weight 118.8 kg Intake: IV 900 900 775 Piperacillin-Tazobactam 3 100 .375 gm In Sodium Chloride 0.9% 100 ml @ 25 mls/hr IVPB Q8HR [facility] Rx# :[id number] Sodium Chloride 0.9% 1, 900 900 675 000 ml @ 75 mls/hr IV . [id number] [facility] Rx#:[id number] Output: Urine 1665 455 625 Other: Voiding Method Indwelling Catheter Indwelling Catheter Indwelling Catheter - Exam Appearance the patient is calm and comfortable likely this is on 2 L of oxygen nasal cannula, no signs of any respiratory distress, the patient is on Precedex to control his agitation. No shakiness pain no tremors. Wakes up confused and agitated and restless. Body mass index is 32.1. Head exam: Present: atraumatic, normocephalic Eye exam: Present: normal appearance, PERRL, EOMI Pupils: Present: normal accommodation ENT exam: Present: mucous membranes moist Neck exam: Present: full ROM. Absent: tenderness, meningismus, lymphadenopathy, thyromegaly Respiratory exam: Present: normal lung sounds bilaterally. Absent: respiratory distress, wheezes, rales, rhonchi, stridor Cardiovascular Exam: Present: regular rate, normal rhythm, normal heart sounds. Absent: systolic murmur, diastolic murmur, rubs, gallop, clicks GI/Abdominal exam: Present: soft, normal bowel sounds. Absent: distended, tenderness, guarding, rebound, rigid Extremities exam: Present: full ROM Back exam: Present: normal inspection. Absent: CVA tenderness (R), CVA tenderness (L), paraspinal tenderness, vertebral tenderness Neurological exam: Present: alert, oriented X3, CN II-XII intact, normal gait. Absent: motor sensory deficit Psychiatric exam: Present: normal affect, normal mood Skin exam: Present: warm, dry, intact, normal color. Absent: rash - Labs CBC & Chem 7: 10/12/21 05:41 10/12/21 05:41 Labs: Abnormal Lab Results - Last 24 Hours (Table) 10/12/21 10/12/21 Range/Units 05:41 05:41 WBC 10.9 H (3.8-10.6) k/uL RBC 4.21 L (4.30-5.90) m/uL Hgb 12.8 L (13.0-17.5) gm/dL Potassium 3.4 L (3.5-5.1) mmol/L Chloride 108 H (98-107) mmol/L Glucose 112 H (74-99) mg/dL Microbiology - Last 24 Hours (Table) 10/11/21 10:06 Urine Culture - Final Urine,Clean Catch 10/07/21 05:44 Blood Culture - Preliminary Blood No Growth after 120 hours 10/05/21 09:57 Blood Culture - Final Blood No Growth after 144 hours 10/05/21 10:03 Blood Culture - Final Blood No Growth after 144 hours Assessment and Plan Plan: 1 delirium tremens/encephalopathy. I think the patient is currently out of the window for delirium tremors. He probably has a component of drug induced encephalopathy. We'll gradually wean off his medications. We'll keep the Seroquel for now. Doxepin has been discontinued. Librium has also been discontinued as the patient is currently quite sedated. 2 alcoholism and the patient presented to the hospital with acute alcohol into xication and his alcohol level was positive for the time of admission 3 hypertension 4 hyperlipidemia 5 smoker 6 chronic anxiety, depression, bipolar disorder 7 acid reflux 8 chronic liver disease with some mild elevation of the AST compared to ALT. Normal coagulation profile Plan Monitor mental status Continue Seroquel The Use of Ativan Only on an As-Needed basis Neurology and psychiatry are both on the case DVT prophylaxis Aspiration precautions Blood pressure management IV Zosyn as an empiric antibiotic coverage We'll continue to follow
[2021-10-12] MEDS: GABAPENTIN 100 MG CAP PO SCH ×2 (15:46→21:01)
[2021-10-12] MEDS: haloperidoL 5 MG TAB PO PRN (17:36)
[2021-10-12] MEDS ORDERED: ASENAPINE 5 MG TAB SUBLINGUAL SCH (21:00)
[2021-10-12] MEDS: ATORVASTATIN 20 MG TAB PO SCH (21:01)
[2021-10-12] MEDS: ASENAPINE 5 MG TAB SUBLINGUAL SCH (21:01)
[2021-10-12] MEDS: QUEtiapine 200 MG TAB PO SCH (21:01)
--- NOTE | 2021-10-12 22:22 | P.PN ---
Subjective Progress Note Date: 10/11/21 Principal diagnosis: Fever and left heel pressure ulcer Patient is a 51-year-old male presented to the hospital on 09/25/2021 for help with getting sober and preventing DTs in this patient who did have a significant history of drinking, patient has been in the ICU and has been running fever for the last few days. On today's evaluation that is 10/11/2021, the patient has been spiking low-grade fever , the patient is hemodynamically stable not requiring increases support, the patient remains to be lethargic and is unable to provide any history , no vomiting or diarrhea has been reported by the nursing staff Objective - Vital Signs Vital signs: Vital Signs Temp 100.1 F H 10/11/21 12:00 Pulse 107 H 10/11/21 13:00 Resp 21 10/11/21 13:00 BP 134/85 10/11/21 13:00 Pulse Ox 94 L 10/11/21 13:00 Intake & Output 10/10/21 10/11/21 10/11/21 17:59 06:59 18:59 Intake Total 450 Output Total 1140 Balance -690 Weight Intake: IV 450 Piperacillin-Tazobactam 3 .375 gm In Sodium Chloride 0.9% 100 ml @ 25 mls/hr IVPB Q8HR [facility] Rx# :[id number] Sodium Chloride 0.9% 1, 450 000 ml @ 75 mls/hr IV . [id number] [facility] Rx#:[id number] Intake, IV Titration Amount Dexmedetomidine/0.9% NaCl (Pmx) 400 mcg In Empty Bag 1 bag @ 0.2 MCG/KG/HR 6.577 mls/hr IV .[id number] [facility] Rx#:[id number] Output: Urine 1140 Other: Voiding Method Indwelling Catheter # Voids # Bowel Movements - Exam GENERAL DESCRIPTION: Middle-age male lying in bed in no distress RESPIRATORY SYSTEM: Unlabored breathing , decreased breath sounds at bases HEART: S1 S2 regular rate and rhythm , ABDOMEN: Soft , no tenderness EXTREMITIES: No edema feet, left heel with a stage II pressure ulcer no cellulitis - Labs CBC & Chem 7: 10/12/21 05:41 10/12/21 05:41 Labs: Abnormal Lab Results - Last 24 Hours (Table) 10/11/21 10/11/21 10/11/21 Range/Units 01:30 01:35 05:52 WBC 13.5 H (3.8-10.6) k/uL Neutrophils # 10.6 H (1.3-7.7) k/uL ABG pH 7.26 L (7.35-7.45) ABG pCO2 59 H (35-45) mmHg ABG pO2 67 L (83-108) mmHg ABG HCO3 26 H (21-25) mmol/L ABG Total CO2 28 H (19-24) mmol/L ABG O2 Saturation 88.0 L (94-97) % Chloride (98-107) mmol/L Carbon Dioxide (22-30) mmol/L Creatinine (0.66-1.25) mg/dL Glucose (74-99) mg/dL POC Glucose (mg/dL) 100 H (75-99) mg/dL Urine Protein (Negative) Urine Ketones (Negative) Urine Blood (Negative) Urine Bilirubin (Negative) Ur Leukocyte Esterase (Negative) Urine RBC (0-5) /hpf Urine WBC (0-5) /hpf Uric Acid Crystals (None) /hpf Urine Bacteria (None) /hpf Urine Mucus (None) /hpf 10/11/21 10/11/21 Range/Units 05:52 10:06 WBC (3.8-10.6) k/uL Neutrophils # (1.3-7.7) k/uL ABG pH (7.35-7.45) ABG pCO2 (35-45) mmHg ABG pO2 (83-108) mmHg ABG HCO3 (21-25) mmol/L ABG Total CO2 (19-24) mmol/L ABG O2 Saturation (94-97) % Chloride 108 H (98-107) mmol/L Carbon Dioxide 18 L (22-30) mmol/L Creatinine 0.64 L (0.66-1.25) mg/dL Glucose 115 H (74-99) mg/dL POC Glucose (mg/dL) (75-99) mg/dL Urine Protein 1+ H (Negative) Urine Ketones 4+ H (Negative) Urine Blood Moderate H (Negative) Urine Bilirubin 1+ H (Negative) Ur Leukocyte Esterase Large H (Negative) Urine RBC 31 H (0-5) /hpf Urine WBC 41 H (0-5) /hpf Uric Acid Crystals Rare H (None) /hpf Urine Bacteria Rare H (None) /hpf Urine Mucus Few H (None) /hpf Microbiology - Last 24 Hours (Table) 10/05/21 09:57 Blood Culture - Final Blood No Growth after 144 hours 10/05/21 10:03 Blood Culture - Final Blood No Growth after 144 hours 10/07/21 05:44 Blood Culture - Preliminary Blood No Growth after 96 hours Assessment and Plan (1) Fever Current Visit: Yes Status: Acute Code(s): R50.9 - FEVER, UNSPECIFIED SNOMED Code(s): 809137776 Plan: 1patient is a 51-year male presented to hospital about 2 weeks ago requesting help with becoming sober and preventing alcohol withdrawal seizure in this patient has been running fever for the last 5 days however the patient did have normal white count chest x-ray showing some atelectasis patient does not look toxic with a question of possible fever related to DTs , underlying pneumonia less likely but not entirely excluded 2blood cultures negative sputum could not be collected 3-patient to continue with Zosyn 4-continue with dry Aquacel silver dressing to the left heel to be changed every 48 hour and keep the area of the pressure Time with Patient: Less than 30
--- NOTE | 2021-10-12 22:23 | P.PN ---
Subjective Progress Note Date: 10/12/21 Principal diagnosis: Fever and left heel pressure ulcer Patient is a 51-year-old male presented to the hospital on 09/25/2021 for help with getting sober and preventing DTs in this patient who did have a significant history of drinking, patient has been in the ICU and has been running fever for the last few days. On today's evaluation that is 10/12/2021, the patient is afebrile today , the patient slightly more awake and alert today however was unable to provide any history , no vomiting or diarrhea has been reported by the nursing staff Objective - Vital Signs Vital signs: Vital Signs Temp 97.9 F 10/12/21 16:00 Pulse 97 10/12/21 16:00 Resp 19 10/12/21 16:00 BP 139/102 10/12/21 16:00 Pulse Ox 93 L 10/12/21 16:00 Intake & Output 10/11/21 10/12/21 10/12/21 18:59 06:59 18:59 Intake Total 900 900 850 Output Total 1665 455 670 Balance -765 445 180 Weight 118.8 kg Intake: IV 900 900 850 Piperacillin-Tazobactam 3 100 .375 gm In Sodium Chloride 0.9% 100 ml @ 25 mls/hr IVPB Q8HR [facility] Rx# :[id number] Sodium Chloride 0.9% 1, 900 900 750 000 ml @ 75 mls/hr IV . [id number] [facility] Rx#:[id number] Output: Urine 1665 455 670 Other: Voiding Method Indwelling Catheter Indwelling Catheter Indwelling Catheter - Exam GENERAL DESCRIPTION: Middle-age male lying in bed in no distress RESPIRATORY SYSTEM: Unlabored breathing , decreased breath sounds at bases HEART: S1 S2 regular rate and rhythm , ABDOMEN: Soft , no tenderness EXTREMITIES: No edema feet, left heel with a stage II pressure ulcer no cellulitis - Labs CBC & Chem 7: 10/12/21 05:41 10/12/21 05:41 Labs: Abnormal Lab Results - Last 24 Hours (Table) 10/12/21 10/12/21 Range/Units 05:41 05:41 WBC 10.9 H (3.8-10.6) k/uL RBC 4.21 L (4.30-5.90) m/uL Hgb 12.8 L (13.0-17.5) gm/dL Potassium 3.4 L (3.5-5.1) mmol/L Chloride 108 H (98-107) mmol/L Glucose 112 H (74-99) mg/dL Microbiology - Last 24 Hours (Table) 10/11/21 10:06 Urine Culture - Final Urine,Clean Catch 10/07/21 05:44 Blood Culture - Preliminary Blood No Growth after 120 hours Assessment and Plan (1) Fever Current Visit: Yes Status: Acute Code(s): R50.9 - FEVER, UNSPECIFIED SNOMED Code(s): 052673444 Plan: 1patient is a 51-year male presented to hospital about 2 weeks ago requesting help with becoming sober and preventing alcohol withdrawal seizure in this patient has been running fever for the last 5 days however the patient did have normal white count chest x-ray showing some atelectasis patient does not look toxic with a question of possible fever related to DTs , underlying pn eum[place] less likely but not entirely excluded 2blood cultures negative sputum could not be collected, UA was mildly positive urine cultures are pending 3-patient is currently covered with Zosyn, which will be continued 4-continue with dry Aquacel silver dressing to the left heel to be changed every 48 hour and keep the area of the pressure Time with Patient: Less than 30
[2021-10-13] MEDS: SODIUM CHLORIDE 0.9% 1,000 ML IV SCH ×2 (01:18→17:12)
[2021-10-13] MEDS: HALOPERIDOL LACTATE 5 MG/ML 1 ML VIAL IM PRN (02:15)
--- NOTE | 2021-10-13 07:57 | P.PN ---
Subjective Progress Note Date: 10/13/21 Principal diagnosis: Hypertension urgency The patient is a 51-year-old gentleman with a past medical history significant for chronic alcohol use as well as hypertension and dyslipidemia and smoking who was admitted to the hospital with alcohol withdrawal symptoms and elevated blood pressure. The patient was seen today. He definitely seems to be more comfortable. Hemodynamically he is better and the pressure has been under better control. No report of any symptoms of chest pain or chest discomfort and no shortness of breath. The troponin was checked and came in to be unremarkable for acute coronary event. Chlorthalidone was admitted to the current medical regimen and seems to be helping in controlling the blood pressure. Objective - Vital Signs Vital signs: Vital Signs Temp 98.6 F 10/13/21 02:00 Pulse 105 H 10/13/21 02:00 Resp 18 10/13/21 02:00 BP 154/85 10/13/21 02:00 Pulse Ox 91 L 10/13/21 02:00 Intake & Output 10/12/21 10/13/21 10/13/21 18:59 06:59 18:59 Intake Total 1100 300 Output Total 775 170 Balance 325 130 Weight 117 kg Intake: IV 1100 300 Piperacillin-Tazobactam 3 200 .375 gm In Sodium Chloride 0.9% 100 ml @ 25 mls/hr IVPB Q8HR [facility] Rx# :[id number] Sodium Chloride 0.9% 1, 900 300 000 ml @ 75 mls/hr IV . [id number] [facility] Rx#:[id number] Output: Urine 775 170 Other: Voiding Method Indwelling Catheter Indwelling Catheter - Constitutional General appearance: Present: no acute distress - Respiratory Respiratory: bilateral: diminished - Cardiovascular Rhythm: regular - Labs CBC & Chem 7: 10/12/21 05:41 10/12/21 05:41 Labs: Microbiology - Last 24 Hours (Table) 10/11/21 10:06 Urine Culture - Final Urine,Clean Catch 10/07/21 05:44 Blood Culture - Preliminary Blood No Growth after 120 hours Assessment and Plan Assessment: Assessment #1 alcohol withdrawal #2 uncontrolled blood pressure/hypertension urgency #3 history of smoking #4. Profound sweating #5 multiple comorbid conditions Plan #1 continue the current medical regimen #2 follow-up with the patient
[2021-10-13 08:01] LABS: Basophils # (A) 0.2 k/uL (0-0.2); Basophils % (A) 2 %; Eosinophils # (A) 0.3 k/uL (0-0.7); Eosinophils % (A) 2 %; HCT 39.8 % (39.0-53.0); Hypochromasia Slight; Lymphocytes # (A) 1.3 k/uL (1.0-4.8); Lymphocytes % (A) 11 %; MCH 30.6 pg (25.0-35.0); MCHC 32.8 g/dL (31.0-37.0); MCV 93.5 fL (80.0-100.0); Mean Platelet Volume 9.6; Monocytes # (A) 0.8 k/uL (0-1.0); Monocytes % (A) 7 %; Neutrophils # (A) 9.3 k/uL (1.3-7.7); Neutrophils % (A) 77 %; Platelet Count 386 k/uL (150-450); RBC 4.26 m/uL (4.30-5.90); RDW 13.5 % (11.5-15.5)
[2021-10-13 08:09] LABS: ALT 25 U/L (4-49); AST 45 U/L (17-59); African American GFR (CKD) >90 (>60 ml/min/1.73 sqM); Albumin 3.4 g/dL (3.5-5.0); Alkaline Phosphatase 118 U/L (38-126); Anion Gap 10 mmol/L; Blood Urea Nitrogen 15 mg/dL (9-20); Calcium 8.9 mg/dL (8.4-10.2); Carbon Dioxide 27 mmol/L (22-30); Chloride 108 mmol/L (98-107); Glucose 113 mg/dL (74-99); Non-African American GFR(CKD) >90 (>60 ml/min/1.73 sqM); Potassium 3.3 mmol/L (3.5-5.1); Sodium 145 mmol/L (137-145); Total Bilirubin 0.5 mg/dL (0.2-1.3); Total Protein 6.7 g/dL (6.3-8.2)
[2021-10-13] MEDS: lisinopriL 10 MG TAB PO SCH (09:13)
[2021-10-13] MEDS: PANTOPRAZOLE 40 MG TABLET PO SCH ×2 (09:13→17:12)
[2021-10-13] MEDS: THIAMINE 100 MG TAB PO SCH (09:13)
[2021-10-13] MEDS: CHLORTHALIDONE 25 MG TAB PO SCH (09:16)
[2021-10-13] MEDS: GABAPENTIN 100 MG CAP PO SCH ×2 (09:16→17:12)
[2021-10-13] MEDS: ASENAPINE 5 MG TAB SUBLINGUAL SCH ×2 (09:17→20:35)
[2021-10-13] MEDS: QUEtiapine 50 MG TAB PO SCH (09:17)
[2021-10-13] MEDS: DILTIAZEM CD 300 MG CAP.ER.24H PO SCH (09:17)
[2021-10-13] MEDS: HEPARIN SODIUM,PORCINE/PF 5,000 UNIT/0.5 ML SYRINGE SQ SCH ×2 (09:18→20:11)
[2021-10-13] MEDS: METOPROLOL SUCCINATE (ER) 100 MG TAB.ER.24H PO SCH (09:18)
[2021-10-13] MEDS: METOCLOPRAMIDE 10 MG TAB PO SCH ×2 (09:18→20:35)
[2021-10-13] MEDS: PIPERACILLIN-TAZOBACTAM 3.375 GM in SODIUM CHLORIDE 0.9% 100 ML IVPB SCH (09:19)
[2021-10-13] MEDS: NICOTINE 21MG/24HR PATCH TRANSDERM SCH (09:52)
--- NOTE | 2021-10-13 09:54 | P.PN ---
<Gayla Coughlin M - Last Filed: 10/13/21 09:54> Subjective Progress Note Date: 10/13/21 On 10/13/2021 patient seen in follow-up in intensive care unit, he is more awake today, he is following simple commands, he is confused, but calm, and not agitated. At times he still yells out, however not physically aggressive. He is breathing comfortably, she is currently on 4 L of oxygen his pulse ox is 92- 93%. He is afebrile, hemodynamically he is stable, patient remains on 0.0 normal saline at a rate of 75 ML per hour, no other drips. Patient has not received any Ativan in the last 24 hours. She remains on when necessary Haldol, maintenance on Seroquel 50 mg daily, and bedtime Seroquel has been discontinued, psychiatry services are following, and Asenapine has been added. Patient seems to be calmer and more cooperative today. Speech therapy is at the bedside and feeding the patient regular diet, patient seems to have a good appetite although he is requiring feeding. Brain CT showed no acute changes, negative unenhanced head CT scan. Patient has been afebrile overnight, hemodynamically stable, in sinus mechanism, slightly tachycardic with a rate of 103, remains on Zosyn. Blood and urine cultures are negative. Last chest x-ray from 10/11/2021 showed cardiomegaly, and mild interstitial edema. No signs have been stable, it is labs have been reviewed, there is an improvement in patient's leukocytosis, with little count is down to 12, hemoglobin is 13, platelet count is 386, sodium is 145, potassium 3.3, chloride is 108, CO2 is 27, BUN is 15, creatinine 0.69, LFTs are within normal limits, troponin was 0.07. Patient continues on GI and DVT prophylaxis. Blood pressure seems to be better controlled, cardiology recommendations have been noted. Objective - Vital Signs Vital signs: Vital Signs Temp 98.6 F 10/13/21 02:00 Pulse 105 H 10/13/21 02:00 Resp 18 10/13/21 02:00 BP 154/85 10/13/21 02:00 Pulse Ox 91 L 10/13/21 02:00 Intake & Output 10/12/21 10/13/21 10/13/21 18:59 06:59 18:59 Intake Total 1100 1225 Output Total 775 455 Balance 325 770 Weight 117 kg Intake: IV 1100 1225 Piperacillin-Tazobactam 3 200 100 .375 gm In Sodium Chloride 0.9% 100 ml @ 25 mls/hr IVPB Q8HR [facility] Rx# :[id number] Sodium Chloride 0.9% 1, 900 1125 000 ml @ 75 mls/hr IV . [id number] [facility] Rx#:[id number] Output: Urine 775 455 Other: Voiding Method Indwelling Catheter Indwelling Catheter - Exam GENERAL EXAM: Alert, confused, oriented to self only, 51-year-old white male, resting in bed, on 4 L of oxygen the pulse ox of 92%, and he is being fed by the respiratory therapist as part of swallow evaluation, seems to be calm, not agitated, answering questions comfortable in no apparent distress. HEAD: Normocephalic/atraumatic. EYES: Normal reaction of pupils, equal size. Conjunctiva pink, sclera white. NOSE: Clear with pink turbinates. THROAT: No erythema or exudates. NECK: No masses, no JVD, no thyroid enlargement, no adenopathy. CHEST: No chest wall deformity. Symmetrical expansion. LUNGS: Equal air entry with no crackles, wheeze, rhonchi or dullness. CVS: Regular rate and rhythm, normal S1 and S2, no gallops, no murmurs, no rubs ABDOMEN: Soft, nontender. No hepatosplenomegaly, normal bowel sounds, no guarding or rigidity. EXTREMITIES: No clubbing, no edema, no cyanosis, 2+ pulses and upper and lower extremities. MUSCULOSKELETAL: Muscle strength and tone normal. SPINE: No scoliosis or deformity SKIN: No rashes CENTRAL NERVOUS SYSTEM: Alert and oriented -1. No focal deficits, tone is normal in all 4 extremities. PSYCHIATRIC: Alert and oriented -1. Appropriate affect. Intact judgment and insight. - Labs CBC & Chem 7: 10/13/21 07:28 10/13/21 07:28 Labs: Abnormal Lab Results - Last 24 Hours (Table) 10/13/21 10/13/21 Range/Units 07:28 07:28 WBC 12.0 H (3.8-10.6) k/uL RBC 4.26 L (4.30-5.90) m/uL Neutrophils # 9.3 H (1.3-7.7) k/uL Potassium 3.3 L (3.5-5.1) mmol/L Chloride 108 H (98-107) mmol/L Glucose 113 H (74-99) mg/dL Albumin 3.4 L (3.5-5.0) g/dL Microbiology - Last 24 Hours (Table) 10/07/21 05:44 Blood Culture - Final Blood No Growth after 144 hours 10/11/21 10:06 Urine Culture - Final Urine,Clean Catch Assessment and Plan Plan: Assessment: #1. Acute alcohol withdrawal, with acute delirium tremens and encephalopathy. At this point patient has been in the hospital for 18 days, and he is outside the window for delirium tremens however he has a component of drug induced encephalopathy. In the last 24 hours has not required any Ativan, patient is currently on a combination of scheduled and when necessary hold all, and antipsychotics in the form of Seroquel and Asenapine #2. Chronic alcoholism #3. Hypertension, currently better controlled #4. Hyperlipidemia #5. Nicotine dependence #6. History of chronic anxiety, depression and bipolar disorder #7. Acid reflux disorder #8. Chronic liver disease with some mild elevation of the AST compared to the ALT, normal coagulation profile #9. Possible urinary tract infection, currently on Zosyn Plan: Continue with Seroquel and Saphris per psychiatry recommendations Bedtime and Seroquel has been eliminated, patient seems to be more awake but not agitated Continue Ativan sparing strategy Hemodynamically patient remains stable In sinus mechanism, blood pressure is better controlled Breathing comfortably, Wean FiO2, encourage incentive spirometer We will involve physical therapy to mobilize the patient He seems to be doing better with oral feedings, however requires assist No acute events overnight Seems well, and cooperative Stable for transfer out of intensive care unit to general medical floor with a sitter We'll continue to follow his clinical course I have personally seen and examined the patient, performed the documentation and the assessment and plan as written. Number of minutes spent on the visit: [10] Time with Patient: Less than 30 <Niesha Moreno - Last Filed: 10/13/21 16:09> Objective - Vital Signs Vital signs: Vital Signs Temp 97.8 F 10/13/21 14:00 Pulse 102 H 10/13/21 14:00 Resp 26 H 10/13/21 14:00 BP 146/92 10/13/21 14:00 Pulse Ox 91 L 10/13/21 14:00 Intake & Output 10/12/21 10/13/21 10/13/21 18:59 06:59 18:59 Intake Total 1100 1225 Output Total 775 455 Balance 325 770 Weight 117 kg 117 kg Intake: IV 1100 1225 Piperacillin-Tazobactam 3 200 100 .375 gm In Sodium Chloride 0.9% 100 ml @ 25 mls/hr IVPB Q8HR [facility] Rx# :[id number] Sodium Chloride 0.9% 1, 900 1125 000 ml @ 75 mls/hr IV . [id number] [facility] Rx#:[id number] Output: Urine 775 455 Other: Voiding Method Indwelling Catheter Indwelling Catheter Indwelling Catheter - Labs CBC & Chem 7: 10/13/21 07:28 10/13/21 07:28 Labs: Abnormal Lab Results - Last 24 Hours (Table) 10/13/21 10/13/21 Range/Units 07:28 07:28 WBC 12.0 H (3.8-10.6) k/uL RBC 4.26 L (4.30-5.90) m/uL Neutrophils # 9.3 H (1.3-7.7) k/uL Potassium 3.3 L (3.5-5.1) mmol/L Chloride 108 H (98-107) mmol/L Glucose 113 H (74-99) mg/dL Albumin 3.4 L (3.5-5.0) g/dL Microbiology - Last 24 Hours (Table) 10/07/21 05:44 Blood Culture - Final Blood No Growth after 144 hours Assessment and Plan Plan: I have personally seen and examined the patient and reviewed the documentation. I performed a joint evaluation with the nurse practitioner in this evaluation was done more than 20 minutes. I fully agree with the documentation above and the plan of care.. Clinically the patient is feeling better and he seems to be much more alert compared to yesterday. He still weak. On and off confused and the mental status continues to fluctuate.
[2021-10-13 19:53] LABS: Glucose,Whole Blood 126 mg/dL (75-99)
[2021-10-13] MEDS: ATORVASTATIN 20 MG TAB PO SCH (20:35)
[2021-10-13 20:49] LABS: ABG Base Excess 5.7 mmol/L; ABG HCO3 29 mmol/L (21-25); ABG Oxygen Saturation 94.8 % (94-97); ABG PCO2 39 mmHg (35-45); ABG PH 7.48 (7.35-7.45); ABG PO2 73 mmHg (83-108); ABG TCO2 30 mmol/L (19-24); Allen Test Performed? Yes
--- NOTE | 2021-10-13 21:27 | P.PN ---
Progress Note - Text Progress Note Date: 10/13/21 Presenting complaint: Lethargic Hospital course: I'm rounding for Dr. Jabari Sorto today. October 13: ICU: Patient did eat some more today with assistance. Nasal cannula. Has been lethargic. Patient was started on Neurontin yesterday. Also started on Saphris yesterday. No focal weakness. Barely arousable. At this point we will hold the evening dose of Saphris. Also DC Neurontin. Discussed with Dr. Moreno. Check ABG. Active Medications Acetaminophen (Acetaminophen Tab 500 Mg Tab) 500 mg PO Q6HR PRN PRN Reason: Fever and/ or Pain Last Admin: 10/10/21 16:40 Dose: 500 mg Documented by: Asenapine (Asenapine 5 Mg Tab) 5 mg SUBLINGUAL BID [facility] Last Admin: 10/13/21 20:35 Dose: Not Given Documented by: Atorvastatin Calcium (Atorvastatin 20 Mg Tab) 20 mg PO HS [facility] Last Admin: 10/13/21 20:35 Dose: Not Given Documented by: Bisacodyl (Bisacodyl 10 Mg Supp) 10 mg RECTAL DAILY PRN PRN Reason: Constipation Chlorthalidone (Chlorthalidone 25 Mg Tab) 25 mg PO DAILY [facility] Last Admin: 10/13/21 09:16 Dose: 25 mg Documented by: Clonidine HCl (Clonidine 0.3 Mg/24hr Patch) 1 patch TRANSDERM Q7D [facility] Last Admin: 10/09/21 09:12 Dose: 1 patch Documented by: Diltiazem HCl (Diltiazem Cd 300 Mg Cap.Er.24h) 300 mg PO DAILY [facility] Last Admin: 10/13/21 09:17 Dose: 300 mg Documented by: Haloperidol (Haloperidol 5 Mg Tab) 5 mg PO Q6HR PRN PRN Reason: Agitation Last Admin: 10/12/21 17:36 Dose: 5 mg Documented by: Haloperidol Lactate (Haloperidol Lactate 5 Mg/Ml 1 Ml Vial) 5 mg IM Q6HR PRN PRN Reason: Agitation or Acute Psychosis Last Admin: 10/13/21 02:15 Dose: 5 mg Documented by: Heparin Sodium (Porcine) (Heparin Sodium,Porcine/Pf 5,000 Unit/0.5 Ml Syringe) 5,000 unit SQ Q12HR [facility] Last Admin: 10/13/21 20:11 Dose: 5,000 unit Documented by: Sodium Chloride (Saline 0.9%) 1,000 mls @ 75 mls/hr IV .[id number] [facility] Last Admin: 10/13/21 17:12 Dose: 75 mls/hr Documented by: Lisinopril (Lisinopril 10 Mg Tab) 10 mg PO DAILY [facility] Last Admin: 10/13/21 09:13 Dose: 10 mg Documented by: Lorazepam (Lorazepam 2 Mg/Ml Inj) 1 mg IM Q6HR PRN PRN Reason: Agitation Last Admin: 10/10/21 20:06 Dose: 1 mg Documented by: Lorazepam (Lorazepam 1 Mg Tab) 2 mg PO Q6HR PRN PRN Reason: Anxiety Last Admin: 10/11/21 14:02 Dose: 2 mg Documented by: Metoclopramide HCl (Metoclopramide 10 Mg Tab) 10 mg PO BID [facility] Last Admin: 10/13/21 20:35 Dose: Not Given Documented by: Metoprolol Succinate (Metoprolol Succinate (Er) 100 Mg Tab.Er.24h) 200 mg PO DAILY [facility] Last Admin: 10/13/21 09:18 Dose: 200 mg Documented by: Miscellaneous Information (Magnesium Replacement Protocol 1 Each Misc) 1 each MISCELLANE DAILY PRN; Protocol PRN Reason: Per Protocol Miscellaneous Information (Potassium Replacement Protocol 1 Each Misc) 1 each MISCELLANE DAILY PRN; Protocol PRN Reason: Per Protocol Naloxone HCl (Naloxone 0.4 Mg/Ml 1 Ml Vial) 0.2 mg IV Q2M PRN PRN Reason: Opioid Reversal Nicotine (Nicotine 21mg/24hr Patch) 1 patch TRANSDERM DAILY [facility] Last Admin: 10/13/21 09:52 Dose: 1 patch Documented by: Ondansetron HCl (Ondansetron 4 Mg/2 Ml Vial) 4 mg IVP Q8HR PRN PRN Reason: Nausea And Vomiting Last Admin: 10/01/21 22:53 Dose: 4 mg Documented by: Pantoprazole Sodium (Pantoprazole 40 Mg Tablet) 40 mg PO AC-BID [facility] Last Admin: 10/13/21 17:12 Dose: 40 mg Documented by: Quetiapine Fumarate (Quetiapine 50 Mg Tab) 50 mg PO DAILY [facility] Last Admin: 10/13/21 09:17 Dose: 50 mg Documented by: Thiamine HCl (Thiamine 100 Mg Tab) 100 mg PO DAILY [facility] Last Admin: 10/13/21 09:13 Dose: 100 mg Documented by: On examination: VITAL SIGNS: 97.8, 102, 26, 146/92, 91% on 4 L GENERAL APPEARANCE: Lying in bed, lethargic. HEENT: Normal external appearance of nose and ear. Oral cavity normal EYES: Pupils equal. Conjunctiva normal. NECK: JVD not raised. Mass not palpable. RESPIRATORY: Respiratory effort increased. Lungs decreased breath sounds CARDIOVASCULAR: First and second sounds normal. No edema. ABDOMEN: Soft. Liver and spleen not palpable. No tenderness. No mass palpable. PSYCHIATRY: Unable to assess patient lethargic NEUROLOGICAL: No facial asymmetry. Pupils equal. Reactive INVESTIGATIONS, reviewed in the clinical context: White count 12 hemoglobin 13 potassium 3.3 creatinine 0.69 Assessment and plan: -Acute metabolic encephalopathy: Worsening. Possibly drug induced. Patient started on Neurontin yesterday. We will hold the same. Patient's new medication Saphris has significant side effect of somnolence. We will hold her p.m. dose today. Review of the medication tomorrow. Patient's last dose of Ativan Haldol was yesterday. -/Alcohol withdrawal Delirium tremens: Better -Alcohol use disorder -Essential hypertension Toprol-XL 200 mg a day Zestril 10 mg a day Cardizem CD 300 mg a day Catapres patch 0.3 mg every 7 days -Hyperlipidemia Lipitor 20 mg daily at bedtime -Nicotine dependence Nicotine patch 21 -Hypertensive heart disease Continue antihypertensives -GERD Protonix 40 mg twice a day -Schizoaffective disorder Seroquel 50 mg daily. Saphris 5 mg twice a day -Alcohol liver disease Follow clinically We'll hold off patient's p.m. dose of Saphris. Also DC Neurontin. Blood gases are being checked. For agitation will use Haldol when necessary. Discussed with Dr. Moreno from pulmonary. We will cut back Reglan to 5 mg 3 times a day. Will follow with psychiatry tomorrow.
[2021-10-14] MEDS: SODIUM CHLORIDE 0.9% 1,000 ML IV SCH ×2 (05:33→19:54)
[2021-10-14] MEDS: PANTOPRAZOLE 40 MG TABLET PO SCH ×2 (06:48→17:44)
[2021-10-14] MEDS ORDERED: METOCLOPRAMIDE 10 MG TAB PO SCH (07:30)
--- NOTE | 2021-10-14 08:31 | P.PN ---
Subjective Progress Note Date: 10/14/21 Principal diagnosis: Hypertension urgency The patient is a 51-year-old gentleman with a past medical history significant for chronic alcohol use as well as hypertension and dyslipidemia and smoking who was admitted to the hospital with alcohol withdrawal symptoms and elevated blood pressure. The patient was seen today. He definitely seems to be more comfortable. Hemodynamically he is better and the pressure has been under better control. No report of any symptoms of chest pain or chest discomfort and no shortness of breath. The troponin was checked and came in to be unremarkable for acute coronary event. At this point I would continue the current medical regimen. Objective - Vital Signs Vital signs: Vital Signs Temp 99.8 F H 10/14/21 08:00 Pulse 105 H 10/14/21 08:00 Resp 31 H 10/14/21 08:00 BP 156/105 10/14/21 08:00 Pulse Ox 90 L 10/14/21 08:00 Intake & Output 10/13/21 10/14/21 10/14/21 18:59 06:59 18:59 Intake Total 925 825 Output Total 825 800 Balance 100 25 Weight 117 kg 114 kg Intake: IV 925 825 Piperacillin-Tazobactam 3 100 .375 gm In Sodium Chloride 0.9% 100 ml @ 25 mls/hr IVPB Q8HR [facility] Rx# :[id number] Sodium Chloride 0.9% 1, 825 825 000 ml @ 75 mls/hr IV . [id number] [facility] Rx#:[id number] Output: Urine 825 800 Other: Voiding Method Indwelling Catheter Indwelling Catheter - Constitutional General appearance: Present: no acute distress - Respiratory Respiratory: bilateral: diminished - Cardiovascular Rhythm: regular - Labs CBC & Chem 7: 10/13/21 07:28 10/13/21 07:28 Labs: Abnormal Lab Results - Last 24 Hours (Table) 10/13/21 10/13/21 Range/Units 19:50 20:41 ABG pH 7.48 H (7.35-7.45) ABG pO2 73 L (83-108) mmHg ABG HCO3 29 H (21-25) mmol/L ABG Total CO2 30 H (19-24) mmol/L POC Glucose (mg/dL) 126 H (75-99) mg/dL Microbiology - Last 24 Hours (Table) 10/07/21 05:44 Blood Culture - Final Blood No Growth after 144 hours Assessment and Plan Assessment: Assessment #1 alcohol withdrawal #2 uncontrolled blood pressure/hypertension urgency #3 history of smoking #4. Profound sweating #5 multiple comorbid conditions Plan #1 continue the current medical regimen #2 follow-up with the patient
[2021-10-14] MEDS: lisinopriL 10 MG TAB PO SCH (09:41)
[2021-10-14] MEDS: DILTIAZEM CD 300 MG CAP.ER.24H PO SCH (09:55)
[2021-10-14] MEDS: METOPROLOL SUCCINATE (ER) 100 MG TAB.ER.24H PO SCH (10:00)
[2021-10-14] MEDS: NICOTINE 21MG/24HR PATCH TRANSDERM SCH (10:04)
--- NOTE | 2021-10-14 10:51 | P.PN ---
Subjective Progress Note Date: 10/14/21 On 10/13/2021 patient seen in follow-up in intensive care unit, he is more awake today, he is following simple commands, he is confused, but calm, and not agitated. At times he still yells out, however not physically aggressive. He is breathing comfortably, she is currently on 4 L of oxygen his pulse ox is 92- 93%. He is afebrile, hemodynamically he is stable, patient remains on 0.0 normal saline at a rate of 75 ML per hour, no other drips. Patient has not received any Ativan in the last 24 hours. She remains on when necessary Haldol, maintenance on Seroquel 50 mg daily, and bedtime Seroquel has been discontinued, psychiatry services are following, and Asenapine has been added. Patient seems to be calmer and more cooperative today. Speech therapy is at the bedside and feeding the patient regular diet, patient seems to have a good appetite although he is requiring feeding. Brain CT showed no acute changes, negative unenhanced head CT scan. Patient has been afebrile overnight, hemodynamically stable, in sinus mechanism, slightly tachycardic with a rate of 103, remains on Zosyn. Blood and urine cultures are negative. Last chest x-ray from 10/11/2021 showed cardiomegaly, and mild interstitial edema. No signs have been stable, it is labs have been reviewed, there is an improvement in patient's leukocytosis, with little count is down to 12, hemoglobin is 13, platelet count is 386, sodium is 145, potassium 3.3, chloride is 108, CO2 is 27, BUN is 15, creatinine 0.69, LFTs are within normal limits, troponin was 0.07. Patient continues on GI and DVT prophylaxis. Blood pressure seems to be better controlled, cardiology recommendations have been noted. On 10/14/2021 patient seen in follow-up in the intensive care unit. There has been a change in his level of consciousness, and patient has been increasingly more confused, he is not making eye contact, although his eyes are open. He is mumbling. Last night he was noted to be more lethargic, and a blood gas was obtained showing pO2 of 73, pCO2 of 39, and pH is 7.38 and this was done on FiO2 of 35%. According to nursing staff patient did not receive any Ativan, however his been undergoing frequent medication changes including his psychotropics to control his agitation, and delirium. Patient at this time has been in the hospital for 19 days, he is thought to be out of the delirium tremens window,. He is required minimal Ativan in the last 48 hours, however he has required significant doses of Ativan in the beginning stages of acute alcohol withdrawal in addition to high doses of Precedex and other atypical antipsychotics. Brain CT from 10/11/2021 showed no sign of intracranial hemorrhage, and fairly normal aeration of the mastoid sinuses, no other acute findings. As of yesterday patient was still receiving Seroquel, and the bedtime dose was adjusted, his bedtime dose was eliminated due to excessive sedation, and another atypical antipsychotic was added on by psychiatry service Asenapine, in addition to Neurontin. Patient had Haldol available on an as-needed basis, as well as Librium. Patient is having low-grade fevers, and he completed a course of Zosyn for a urinary tract infection and blood and urine cultures have shown no growth. At this time in view of his low-grade fevers we will reculture him we'll obtain an history of blood cultures, urinalysis with culture. This morning he seen in the intensive care unit, does not appear to be in any respiratory distress, he is currently on 5 L of oxygen pulse ox of 90%, temperature this morning is 99.8 axillary, at times patient is hypertensive, cardiology is following, and patient is currently on a combination of [place], beta blockers in the form of Toprol- XL 200 mg daily, lisinopril 10 mg daily, and clonidine patch of 0.3 and aida nidine patch every 7 days. I'll intake has been poor. Remains on IV hydration with 0.9 normal saline at a rate of 75 ML per hour. His weight trend shows significant weight loss since admission, overall patient is down 17.5 kg since admission. Objective - Vital Signs Vital signs: Vital Signs Temp 99.8 F H 10/14/21 08:00 Pulse 105 H 10/14/21 08:00 Resp 31 H 10/14/21 08:00 BP 156/105 10/14/21 08:00 Pulse Ox 90 L 10/14/21 08:00 Intake & Output 10/13/21 10/14/21 10/14/21 18:59 06:59 18:59 Intake Total 925 825 Output Total 825 800 Balance 100 25 Weight 117 kg 114 kg Intake: IV 925 825 Piperacillin-Tazobactam 3 100 .375 gm In Sodium Chloride 0.9% 100 ml @ 25 mls/hr IVPB Q8HR [facility] Rx# :[id number] Sodium Chloride 0.9% 1, 825 825 000 ml @ 75 mls/hr IV . [id number] [facility] Rx#:[id number] Output: Urine 825 800 Other: Voiding Method Indwelling Catheter Indwelling Catheter - Exam GENERAL EXAM: Lethargic confused, does not make eye contact, 51-year-old white male, resting in bed, on 4 L of oxygen the pulse ox of 92%, calm, not agitated, answering questions comfortable in no apparent distress. HEAD: Normocephalic/atraumatic. EYES: Normal reaction of pupils, equal size. Conjunctiva pink, sclera white. NOSE: Clear with pink turbinates. THROAT: No erythema or exudates. NECK: No masses, no JVD, no thyroid enlargement, no adenopathy. CHEST: No chest wall deformity. Symmetrical expansion. LUNGS: Equal air entry with no crackles, wheeze, rhonchi or dullness. CVS: Regular rate and rhythm, normal S1 and S2, no gallops, no murmurs, no rubs ABDOMEN: Soft, nontender. No hepatosplenomegaly, normal bowel sounds, no guarding or rigidity. EXTREMITIES: No clubbing, no edema, no cyanosis, 2+ pulses and upper and lower extremities. MUSCULOSKELETAL: Muscle strength and tone normal. SPINE: No scoliosis or deformity SKIN: No rashes CENTRAL NERVOUS SYSTEM: Lethargic, confused. No focal deficits, tone is normal in all 4 extremities. - Labs CBC & Chem 7: 10/14/21 10:32 10/14/21 10:32 Labs: Abnormal Lab Results - Last 24 Hours (Table) 10/13/21 10/13/21 Range/Units 19:50 20:41 ABG pH 7.48 H (7.35-7.45) ABG pO2 73 L (83-108) mmHg ABG HCO3 29 H (21-25) mmol/L ABG Total CO2 30 H (19-24) mmol/L POC Glucose (mg/dL) 126 H (75-99) mg/dL Microbiology - Last 24 Hours (Table) 10/07/21 05:44 Blood Culture - Final Blood No Growth after 144 hours Assessment and Plan Plan: Assessment: #1. Altered mental status, possibly drug induced/versus toxic or metabolic encephalopathy. Patient initially came in for acute alcohol withdrawal, with acute delirium tremens and encephalopathy. At this point patient has been in the hospital for 19 days, and he is outside the window for delirium tremens however he has a component of drug induced encephalopathy. CT of the brain on 10/11/2021 showed no acute intracranial abnormalities. However clinically patient's mentation is still quiet significantly altered, rule out possibility of toxic metabolic encephalopathy, will obtain follow blood cultures, urine culture, lumbar puncture and the chest x-ray #2. Rule out possibility of HSV encephalitis, we'll request anesthesia services to do a lumbar puncture #3. Chronic alcoholism #4. Hypertension, currently better controlled #5. Hyperlipidemia #6. Nicotine dependence #7. History of chronic anxiety, depression and bipolar disorder #8. Acid reflux disorder #9. Chronic liver disease with some mild elevation of the AST compared to the ALT, normal coagulation profile #10. Possible urinary tract infection, bleeding Zosyn, urine culture was negative Plan: Patient mentation remains significantly altered at this time Lethargic, he is confused, He continues to have low-grade fever We'll obtain a follow-up chest x-ray, follow blood cultures, urinalysis with culture and pro-calcitonin level CT of the brain showed no acute intracranial abnormality We'll discontinue all psychotropic medications including benzodiazepines, and antipsychotics Discontinue Reglan We'll hold the chlorthalidone right now as a patient has had very poor oral intake May use hydralazine 10 mg every 6 hours for systolic blood pressure of 160 or diastolic over 100 mmHg Continue with Toprol-XL, and lisinopril per cardiology recommendations Continue GI and DVT prophylaxis We'll request anesthesia services for lumbar puncture spinal fluid for cultures, and HSV PCR Hold transfer out of the intensive care unit Continue close monitoring in the ICU I have personally seen and examined the patient, performed the documentation and the assessment and plan as written. Number of minutes spent on the visit: [10] Time with Patient: Greater than 30 (I have personally seen and examined the patient and reviewed the documentation. I performed a joint evaluation with the nurse practitioner in this evaluation was done more than 20 minutes. I fully agree with the documentation above and the plan of care.)
--- NOTE | 2021-10-14 10:54 | XR ---
EXAMINATION TYPE: XR chest 1V portable DATE OF EXAM: 10/14/2021 COMPARISON: Chest x-ray 10/11/2021 HISTORY: Fever, lethargy TECHNIQUE: Single frontal view of the chest is obtained. FINDINGS: Lung volumes are low. There are overlying artifacts. Patchy basilar density is again seen. There is no pleural effusion or pneumothorax seen. The cardiac silhouette size is stable, heart size appearance may be accentuated by technique. Patient is rotated. The osseous structures are intact. IMPRESSION: Probable basilar atelectasis, expiratory rotated exam. Correlate to exclude pneumonia. P rominent appearing heart.
[2021-10-14 10:55] LABS: Basophils # (A) 0.1 k/uL (0-0.2); Basophils % (A) 1 %; Eosinophils # (A) 0.2 k/uL (0-0.7); Eosinophils % (A) 2 %; HCT 41.7 % (39.0-53.0); HGB 13.5 gm/dL (13.0-17.5); Hypochromasia Slight; Lymphocytes # (A) 1.4 k/uL (1.0-4.8); Lymphocytes % (A) 11 %; MCH 30.2 pg (25.0-35.0); MCHC 32.5 g/dL (31.0-37.0); MCV 92.9 fL (80.0-100.0); Mean Platelet Volume 9.9; Monocytes # (A) 0.6 k/uL (0-1.0); Monocytes % (A) 4 %; Neutrophils # (A) 10.7 k/uL (1.3-7.7); Neutrophils % (A) 81 %; Platelet Count 389 k/uL (150-450); RBC 4.49 m/uL (4.30-5.90); RDW 13.4 % (11.5-15.5); WBC 13.2 k/uL (3.8-10.6)
[2021-10-14 11:05] LABS: Partial Thromboplastin Time 22.5 sec (22.0-30.0); Prothrombin Time 11.3 sec (9.0-12.0)
[2021-10-14] MEDS: THIAMINE 100 MG TAB PO SCH (11:12)
[2021-10-14 11:16] LABS: ALT 27 U/L (4-49); AST 46 U/L (17-59); African American GFR (CKD) >90 (>60 ml/min/1.73 sqM); Albumin 3.7 g/dL (3.5-5.0); Alkaline Phosphatase 107 U/L (38-126); Anion Gap 10 mmol/L; Blood Urea Nitrogen 16 mg/dL (9-20); Calcium 9.3 mg/dL (8.4-10.2); Carbon Dioxide 27 mmol/L (22-30); Chloride 107 mmol/L (98-107); Glucose 160 mg/dL (74-99); Non-African American GFR(CKD) >90 (>60 ml/min/1.73 sqM); Potassium 3.1 mmol/L (3.5-5.1); Sodium 144 mmol/L (137-145); Total Bilirubin 0.6 mg/dL (0.2-1.3); Total Protein 6.7 g/dL (6.3-8.2)
[2021-10-14 11:40] LABS: Amorphous Sediment,Urine Rare /hpf; Appearance,Urine Cloudy (Clear); Bacteria,Urine Rare /hpf; Bilirubin,Urine Negative (Negative); Blood,Urine Small (Negative); Calcium Oxalate Crystals,Urine Rare /hpf; Color,Urine Yellow; Glucose,Urine (UA) Negative (Negative); Ketones,Urine Negative (Negative); Leukocyte Esterase,Urine Small (Negative); Mucus,Urine Many /hpf; Nitrite,Urine Negative (Negative); Protein,Urine 1+ (Negative); RBC,Urine 23 /hpf (0-5); Specific Gravity,Urine 1.027 (1.001-1.035); Squamous Epithelial Cell,Urine <1 /hpf (0-4); WBC,Urine 26 /hpf (0-5)
--- NOTE | 2021-10-14 11:59 | CT ---
EXAMINATION TYPE: CT brain wo con DATE OF EXAM: 10/14/2021 COMPARISON: 10/11/2021 HISTORY: Altered mental status. CT DLP: 1237.4 mGycm Automated exposure control for dose reduction was used. FINDINGS: Mild to moderate generalized degenerative change of low-attenuation in the white matter which is nons pecific. No acute hemorrhage or mass effect. No midline shift. There is increased density in the righ t distal ICA near the carotid siphon. Recommend CTA to assess enhancement of the urinary exclude thro mbosis. Calvarium intact. Sinuses are clear. Orbits are symmetric. Cerebellar tonsils low-lying position at t he level of foramen magnum. Sella turcica has a normal appearance. Calcifications in the basal gangli a noted. IMPRESSION: 1. Right distal ICA is somewhat hyperdense occasionally associated with ICA thrombosis. No acute hemo rrhage. CTA [facility] recommended report called to patient's nurse 11:55 AM 10/14/2021
--- NOTE | 2021-10-14 12:10 | P.PN ---
Subjective Progress Note Date: 10/13/21 Principal diagnosis: Fever and left heel pressure ulcer Patient is a 51-year-old male presented to the hospital on 09/25/2021 for help with getting sober and preventing DTs in this patient who did have a significant history of drinking, patient has been in the ICU and has been running fever for the last few days. On today's evaluation there is 10/13/2021 the patient did have a low-grade fever, patient remains to be lethargic and is unable to provide any history no vomiting diarrhea or recent changes were reported by the nursing staff Objective - Vital Signs Vital signs: Vital Signs Temp 97.5 F L 10/13/21 08:00 Pulse 105 H 10/13/21 08:00 Resp 17 10/13/21 08:00 BP 152/99 10/13/21 10:30 Pulse Ox 91 L 10/13/21 08:00 Intake & Output 10/12/21 10/13/21 10/13/21 18:59 06:59 18:59 Intake Total 1100 1225 Output Total 775 455 Balance 325 770 Weight 117 kg 117 kg Intake: IV 1100 1225 Piperacillin-Tazobactam 3 200 100 .375 gm In Sodium Chloride 0.9% 100 ml @ 25 mls/hr IVPB Q8HR [facility] Rx# :[id number] Sodium Chloride 0.9% 1, 900 1125 000 ml @ 75 mls/hr IV . [id number] [facility] Rx#:[id number] Output: Urine 775 455 Other: Voiding Method Indwelling Catheter Indwelling Catheter Indwelling Catheter - Exam GENERAL DESCRIPTION: Middle-age male lying in bed in no distress RESPIRATORY SYSTEM: Unlabored breathing , decreased breath sounds at bases HEART: S1 S2 regular rate and rhythm , ABDOMEN: Soft , no tenderness EXTREMITIES: No edema feet, left heel with a stage II pressure ulcer no cellulitis - Labs CBC & Chem 7: 10/14/21 10:32 10/14/21 10:32 Labs: Abnormal Lab Results - Last 24 Hours (Table) 10/13/21 10/13/21 Range/Units 07:28 07:28 WBC 12.0 H (3.8-10.6) k/uL RBC 4.26 L (4.30-5.90) m/uL Neutrophils # 9.3 H (1.3-7.7) k/uL Potassium 3.3 L (3.5-5.1) mmol/L Chloride 108 H (98-107) mmol/L Glucose 113 H (74-99) mg/dL Albumin 3.4 L (3.5-5.0) g/dL Microbiology - Last 24 Hours (Table) 10/07/21 05:44 Blood Culture - Final Blood No Growth after 144 hours 10/11/21 10:06 Urine Culture - Final Urine,Clean Catch Assessment and Plan (1) Fever Current Visit: Yes Status: Acute Code(s): R50.9 - FEVER, UNSPECIFIED SNOMED Code(s): 176542293 Plan: 1patient is a 51-year male presented to hospital about 2 weeks ago requesting help with becoming sober and preventing alcohol withdrawal seizure in this patient has been running fever for the last 5 days however the patient did have normal white count chest x-ray showing some atelectasis patient does not look toxic with a question of possible fever related to DTs , underlying pneumonia less likely but not entirely excluded 2blood cultures negative however sputum could not be collected, UA was mildly positive urine cultures are pending 3-patient to continue with Zosyn 4-continue with dry Aquacel silver dressing to the left heel to be changed every 48 hour and keep the area of the pressure Time with Patient: Less than 30
--- NOTE | 2021-10-14 12:12 | P.PN ---
Subjective Progress Note Date: 10/14/21 Principal diagnosis: Fever and left heel pressure ulcer Patient is a 51-year-old male presented to the hospital on 09/25/2021 for help with getting sober and preventing DTs in this patient who did have a significant history of drinking, patient has been in the ICU and has been running fever for the last few days. On today's evaluation there is 10/14/2021 the patient did spike a fever last night and again this morning the patient continues to be lethargic and is curre ntly requiring more oxygen no vomiting diarrhea or any other changes reported by nursing staff Objective - Vital Signs Vital signs: Vital Signs Temp 99.8 F H 10/14/21 08:00 Pulse 105 H 10/14/21 08:00 Resp 31 H 10/14/21 08:00 BP 156/105 10/14/21 08:00 Pulse Ox 90 L 10/14/21 08:00 Intake & Output 10/13/21 10/14/21 10/14/21 18:59 06:59 18:59 Intake Total 925 825 Output Total 825 800 Balance 100 25 Weight 117 kg 114 kg Intake: IV 925 825 Piperacillin-Tazobactam 3 100 .375 gm In Sodium Chloride 0.9% 100 ml @ 25 mls/hr IVPB Q8HR [facility] Rx# :[id number] Sodium Chloride 0.9% 1, 825 825 000 ml @ 75 mls/hr IV . [id number] [facility] Rx#:[id number] Output: Urine 825 800 Other: Voiding Method Indwelling Catheter Indwelling Catheter - Exam GENERAL DESCRIPTION: Middle-age male lying in bed in no distress RESPIRATORY SYSTEM: Unlabored breathing , decreased breath sounds at bases HEART: S1 S2 regular rate and rhythm , ABDOMEN: Soft , no tenderness EXTREMITIES: No edema feet, left heel with a stage II pressure ulcer no cellulitis - Labs CBC & Chem 7: 10/14/21 10:32 10/14/21 10:32 Labs: Abnormal Lab Results - Last 24 Hours (Table) 10/13/21 10/13/21 10/14/21 Range/Units 19:50 20:41 10:32 WBC 13.2 H (3.8-10.6) k/uL Neutrophils # 10.7 H (1.3-7.7) k/uL ABG pH 7.48 H (7.35-7.45) ABG pO2 73 L (83-108) mmHg ABG HCO3 29 H (21-25) mmol/L ABG Total CO2 30 H (19-24) mmol/L Potassium (3.5-5.1) mmol/L Creatinine (0.66-1.25) mg/dL Glucose (74-99) mg/dL POC Glucose (mg/dL) 126 H (75-99) mg/dL Urine Protein (Negative) Urine Blood (Negative) Ur Leukocyte Esterase (Negative) Urine RBC (0-5) /hpf Urine WBC (0-5) /hpf Calcium Oxalate Crystal (None) /hpf Amorphous Sediment (None) /hpf Urine Bacteria (None) /hpf Urine Mucus (None) /hpf 10/14/21 10/14/21 Range/Units 10:32 11:00 WBC (3.8-10.6) k/uL Neutrophils # (1.3-7.7) k/uL ABG pH (7.35-7.45) ABG pO2 (83-108) mmHg ABG HCO3 (21-25) mmol/L ABG Total CO2 (19-24) mmol/L Potassium 3.1 L (3.5-5.1) mmol/L Creatinine 0.64 L (0.66-1.25) mg/dL Glucose 160 H (74-99) mg/dL POC Glucose (mg/dL) (75-99) mg/dL Urine Protein 1+ H (Negative) Urine Blood Small H (Negative) Ur Leukocyte Esterase Small H (Negative) Urine RBC 23 H (0-5) /hpf Urine WBC 26 H (0-5) /hpf Calcium Oxalate Crystal Rare H (None) /hpf Amorphous Sediment Rare H (None) /hpf Urine Bacteria Rare H (None) /hpf Urine Mucus Many H (None) /hpf Microbiology - Last 24 Hours (Table) 10/07/21 05:44 Blood Culture - Final Blood No Growth after 144 hours Assessment and Plan (1) Fever Current Visit: Yes Status: Acute Code(s): R50.9 - FEVER, UNSPECIFIED SNOMED Code(s): 890675496 Plan: 1patient is a 51-year male presented to hospital about 2 weeks ago requesting help with becoming sober and preventing alcohol withdrawal seizure , Patient starts spiking fever again after he Zosyn was discontinued patient white count is now trending up and x-ray showing right lower lobe infiltrate we will restart his Zosyn blood cultures have been obtained and those will be followed and monitor his clinical course closely 2-continue with dry Aquacel silver dressing to the left heel to be changed every 48 hour and keep the area of the pressure Time with Patient: Less than 30
--- NOTE | 2021-10-14 14:05 | P.PN ---
Progress Note - Text Progress Note Date: 10/14/21 Presenting complaint: Lethargic Hospital course: I'm rounding for Dr. Jabari Sorto October 13: ICU: Patient did eat some more today with assistance. Nasal cannula. Has been lethargic. Patient was started on Neurontin yesterday. Also started on Saphris yesterday. No focal weakness. Barely arousable. At this point we will hold the evening dose of Saphris. Also DC Neurontin. Discussed with Dr. Moreno. Check ABG. October 14: ICU. Yesterday Saphris and Neurontin was discontinued. Was a bit more awake this morning. Took his medications. Some food. Significant other by the bedside. Rather sleepy. Active Medications Acetaminophen (Acetaminophen Tab 500 Mg Tab) 500 mg PO Q6HR PRN PRN Reason: Fever and/ or Pain Last Admin: 10/10/21 16:40 Dose: 500 mg Documented by: Atorvastatin Calcium (Atorvastatin 20 Mg Tab) 20 mg PO HS [facility] Last Admin: 10/13/21 20:35 Dose: Not Given Documented by: Bisacodyl (Bisacodyl 10 Mg Supp) 10 mg RECTAL DAILY PRN PRN Reason: Constipation Clonidine HCl (Clonidine 0.3 Mg/24hr Patch) 1 patch TRANSDERM Q7D [facility] Last Admin: 10/09/21 09:12 Dose: 1 patch Documented by: Diltiazem HCl (Diltiazem Cd 300 Mg Cap.Er.24h) 300 mg PO DAILY [facility] Last Admin: 10/14/21 09:55 Dose: 300 mg Documented by: Heparin Sodium (Porcine) (Heparin Sodium,Porcine/Pf 5,000 Unit/0.5 Ml Syringe) 5,000 unit SQ Q12HR [facility] Last Admin: 10/13/21 20:11 Dose: 5,000 unit Documented by: Hydralazine HCl (Hydralazine Hcl 20 Mg/Ml 1 Ml Vial) 10 mg IVP Q6HR PRN PRN Reason: Blood Pressure - High Sodium Chloride (Saline 0.9%) 1,000 mls @ 75 mls/hr IV .[id number] [facility] Last Admin: 10/14/21 05:33 Dose: 75 mls/hr Documented by: Piperacillin Sod/Tazobactam (Sod 3.375 gm/ Sodium Chloride) 100 mls @ 25 mls/hr IVPB Q8HR [facility]; Protocol Lisinopril (Lisinopril 10 Mg Tab) 10 mg PO DAILY [facility] Last Admin: 10/14/21 09:41 Dose: 10 mg Documented by: Metoprolol Succinate (Metoprolol Succinate (Er) 100 Mg Tab.Er.24h) 200 mg PO DAILY [facility] Last Admin: 10/14/21 10:00 Dose: 200 mg Documented by: Miscellaneous Information (Magnesium Replacement Protocol 1 Each Misc) 1 each MISCELLANE DAILY PRN; Protocol PRN Reason: Per Protocol Miscellaneous Information (Potassium Replacement Protocol 1 Each Misc) 1 each MISCELLANE DAILY PRN; Protocol PRN Reason: Per Protocol Naloxone HCl (Naloxone 0.4 Mg/Ml 1 Ml Vial) 0.2 mg IV Q2M PRN PRN Reason: Opioid Reversal Nicotine (Nicotine 21mg/24hr Patch) 1 patch TRANSDERM DAILY [facility] Last Admin: 10/14/21 10:04 Dose: 1 patch Documented by: Ondansetron HCl (Ondansetron 4 Mg/2 Ml Vial) 4 mg IVP Q8HR PRN PRN Reason: Nausea And Vomiting Last Admin: 10/01/21 22:53 Dose: 4 mg Documented by: Pantoprazole Sodium (Pantoprazole 40 Mg Tablet) 40 mg PO AC-BID [facility] Last Admin: 10/14/21 06:48 Dose: Not Given Documented by: Thiamine HCl (Thiamine 100 Mg Tab) 100 mg PO DAILY [facility] Last Admin: 10/14/21 11:12 Dose: 100 mg Documented by: On examination: VITAL SIGNS: 99.8, 101, 25, 143/98, 93% on 5 L GENERAL APPEARANCE: Lying in bed, lethargic. HEENT: Normal external appearance of nose and ear. Oral cavity normal EYES: Pupils equal. Conjunctiva normal. NECK: JVD not raised. Mass not palpable. RESPIRATORY: Respiratory effort increased. Lungs decreased breath sounds CARDIOVASCULAR: First and second sounds normal. No edema. ABDOMEN: Soft. Liver and spleen not palpable. No tenderness. No mass palpable. PSYCHIATRY: Unable to assess patient lethargic NEUROLOGICAL: No facial asymmetry. Pupils equal. Reactive INVESTIGATIONS, reviewed in the clinical context: October 14: WBC 13.2 hemoglobin 13.5 potassium 3.1 creatinine 0.64 Computed tomography scan brain without contrast: Right distal ICA somewhat hyperdense. White count 12 hemoglobin 13 potassium 3.3 creatinine 0.69 Assessment and plan: -Acute metabolic encephalopathy: Possibly drug induced.: Slow to respond Continue to hold Saphris and Neurontin. -/Alcohol withdrawal Delirium tremens: Better -Alcohol use disorder -Essential hypertension Toprol-XL 200 mg a day Zestril 10 mg a day Cardizem CD 300 mg a day Catapres patch 0.3 mg every 7 days -Hyperlipidemia Lipitor 20 mg daily at bedtime -Nicotine dependence Nicotine patch 21 -Hypertensive heart disease Continue antihypertensives -GERD Protonix 40 mg twice a day -Schizoaffective disorder Seroquel 50 mg daily. Saphris 5 mg twice a day -Alcohol liver disease Follow clinically Computed tomography scan of the brain as well as noted. [facility] computed tomography scan ordered. Continue to hold Neurontin and Saphris. Discussed with significant other the bedside.
--- NOTE | 2021-10-14 14:23 | CT ---
CT angiogram of the [facility] HISTORY: Abnormal head CT Helical acquisition obtained through the [facility] during dynamic administration 100 cc Isovue -370 IV. Automated exposure control for dose reduction. Three-dimensional reconstructions were perfor med on an alternate workstation and reviewed. Correlation to head CT 10/14/2021 Anterior and posterior circulations are intact. Left vertebral artery is dominant. There are some cer ebral vascular calcifications. There is no evident aneurysm, dissection, embolus, or significant sten osis. IMPRESSION: No abnormality evident
[2021-10-14] MEDS: hydrALAZINE HCL 20 MG/ML 1 ML VIAL IVP PRN (14:29)
[2021-10-14] MEDS ORDERED: LIDOCAINE 1% INJ 10MG/ML (20 ML MDV) ONE (15:06)
--- NOTE | 2021-10-14 15:18 | P.PCN ---
Date of Procedure: 10/14/21 Procedure(s) Performed: Preoperative diagnosis: altered mental status Post operative diagnoses: altered mental status Procedure= lumbar puncture Anesthesia local infiltration with lidocaine 1% 2 mL. Condition: stable Complication: none. Description of the procedure procedure risk and benefits discussed with the family, consent signed. Patient and the ICU area placed in lateral position ( left side down ), back prepped with chlorhexidine 3 times been local infiltration of the skin and subcutaneous tissue with lidocaine 1% 2 mL for skin and subcu interstitial frustrations at L4 5 levels then 22-gauge Quincke-type needle advanced slowly at L4- 5 interlaminar space there was positive cerebrospinal fluid which was clear, no heme, no paresthesia ,total of 8 ML of clear cerebrospinal fluid collected in 4 different tubes 2 mL in each, then the needle removed and a Band-Aid applied and patient tolerated the procedure well without any complications.
[2021-10-14 16:22] LABS: Glucose,CSF 75 mg/dL (40-70); Total Protein,CSF 58 mg/dL (12-60)
[2021-10-14 16:31] LABS: Appearance,CSF Clear; CSF Tube Number 4; CSF Tube Volume 2
[2021-10-14 16:36] LABS: Nucleated Cells, CSF 1 u/L (0-5); Red Blood Cell,CSF 0 u/L (0-10)
[2021-10-14] MEDS: PIPERACILLIN-TAZOBACTAM 3.375 GM in SODIUM CHLORIDE 0.9% 100 ML IVPB SCH ×2 (16:45→23:14)
[2021-10-14] MEDS: GABAPENTIN 100 MG CAP PO SCH ×2 (17:15→20:58)
--- NOTE | 2021-10-14 17:16 | P.PN ---
Subjective Progress Note Date: 10/14/21 Principal diagnosis: progress note Jamie was followed at the request of ICU medical team for his fluctuating symptoms of sensorium and mental status change. He was seen early by Dr. Hurd talking freeing about his admission , However, he passsed through the 96-hr alcohol withdrawal and didnot have DT. he was ex-tubated uneventfully. He ramained at times confused with fluctuating level of consciousness. . He was fully ivnestigated for any [place] vascular and infectiuos lesions. however, apart from his low grade fever and leukocytosis, medical cosultation requested psychatirc suggesitons. I rcommmend for him to be tried on a low dosage of another atypical sublingual form saprhis and low dosage of GABApentin 100 mg po tid. He was seen by Neurol. with no focal neurological signs. However, he was noted to be highly lethargic and sedated after he was stared on Saphris and GABAPpeint. Psychotorpic medications were on hold . the ICU staff informed me that he was in a query non-responsive state last evening. and was seen by Hosp[facility] medicine information specialist. He was ordered another round of CT/MRI imsging. I went to the unit inperson and tried to interview th person. PT has wide open but failed to utter sounds or showed any non-verbal signs of recognition. The ICU nurse informed that he would be ordered another round of contrast CT scan to rule out any focal lesion other than hyper-dense white matter lesion around the [place] of [place]. I was paged again aroudn 4: 5 rk regarding the result which was uneventful. He may have L/P scheduled to rule out any insidious occutl infection viral or otherswise. Vitals were stable. At 4-5 pm he seemed to exhibit gurgling sournds and was slightly agitated over the phone. I recommend the following 1. hold Saspris 2. start restart on GABAPentin 100 mg po tid. 3. Ressess by Dr. Wei tomorrow. 4. tentative : rule out occutl [place] if evertyhig is negative, Chronic atypical Alcohol dementia or atypical Wernicke encephalopathy is in the differential Objective - Vital Signs Vital signs: Vital Signs Temp 99.6 F 10/14/21 16:00 Pulse 105 H 10/14/21 16:00 Resp 17 10/14/21 16:00 BP 133/93 10/14/21 16:00 Pulse Ox 94 L 10/14/21 16:00 Intake & Output 10/13/21 10/14/21 10/14/21 18:59 06:59 18:59 Intake Total 925 825 780 Output Total 825 800 470 Balance 100 25 310 Weight 117 kg 114 kg Intake: IV 925 825 780 Piperacillin-Tazobactam 3 100 .375 gm In Sodium Chloride 0.9% 100 ml @ 25 mls/hr IVPB Q8HR [facility] Rx# :[id number] Sodium Chloride 0.9% 1, 825 825 780 000 ml @ 75 mls/hr IV . [id number] [facility] Rx#:[id number] Output: Urine 825 800 470 Other: Voiding Method Indwelling Catheter Indwelling Catheter Indwelling Catheter - Labs CBC & Chem 7: 10/14/21 10:32 10/14/21 10:32 Labs: Abnormal Lab Results - Last 24 Hours (Table) 10/13/21 10/13/21 10/14/21 Range/Units 19:50 20:41 10:32 WBC 13.2 H (3.8-10.6) k/uL Neutrophils # 10.7 H (1.3-7.7) k/uL ABG pH 7.48 H (7.35-7.45) ABG pO2 73 L (83-108) mmHg ABG HCO3 29 H (21-25) mmol/L ABG Total CO2 30 H (19-24) mmol/L Potassium (3.5-5.1) mmol/L Creatinine (0.66-1.25) mg/dL Glucose (74-99) mg/dL POC Glucose (mg/dL) 126 H (75-99) mg/dL Urine Protein (Negative) Urine Blood (Negative) Ur Leukocyte Esterase (Negative) Urine RBC (0-5) /hpf Urine WBC (0-5) /hpf Calcium Oxalate Crystal (None) /hpf Amorphous Sediment (None) /hpf Urine Bacteria (None) /hpf Urine Mucus (None) /hpf CSF Glucose (40-70) mg/dL 10/14/21 10/14/21 10/14/21 Range/Units 10:32 11:00 15:20 WBC (3.8-10.6) k/uL Neutrophils # (1.3-7.7) k/uL ABG pH (7.35-7.45) ABG pO2 (83-108) mmHg ABG HCO3 (21-25) mmol/L ABG Total CO2 (19-24) mmol/L Potassium 3.1 L (3.5-5.1) mmol/L Creatinine 0.64 L (0.66-1.25) mg/dL Glucose 160 H (74-99) mg/dL POC Glucose (mg/dL) (75-99) mg/dL Urine Protein 1+ H (Negative) Urine Blood Small H (Negative) Ur Leukocyte Esterase Small H (Negative) Urine RBC 23 H (0-5) /hpf Urine WBC 26 H (0-5) /hpf Calcium Oxalate Crystal Rare H (None) /hpf Amorphous Sediment Rare H (None) /hpf Urine Bacteria Rare H (None) /hpf Urine Mucus Many H (None) /hpf CSF Glucose 75 H (40-70) mg/dL
[2021-10-14] MEDS: HEPARIN SODIUM,PORCINE/PF 5,000 UNIT/0.5 ML SYRINGE SQ SCH ×2 (17:42→20:30)
[2021-10-14] MEDS ORDERED: Potassium Replacement Protocol 1 EACH MISC MISCELLANE PRN (18:49)
[2021-10-14] MEDS: POTASSIUM CHLORIDE ER 20 MEQ TAB.ER PO SCH ×2 (18:56→20:31)
[2021-10-14] MEDS: ATORVASTATIN 20 MG TAB PO SCH (20:31)
[2021-10-15 06:00] LABS: Basophils # (A) 0.1 k/uL (0-0.2); Basophils % (A) 1 %; Eosinophils # (A) 0.2 k/uL (0-0.7); Eosinophils % (A) 2 %; HCT 41.8 % (39.0-53.0); HGB 13.1 gm/dL (13.0-17.5); Hypochromasia Moderate; Lymphocytes # (A) 1.8 k/uL (1.0-4.8); Lymphocytes % (A) 13 %; MCH 29.5 pg (25.0-35.0); MCHC 31.3 g/dL (31.0-37.0); MCV 94.1 fL (80.0-100.0); Mean Platelet Volume 10.3; Monocytes % (A) 7 %; Neutrophils # (A) 9.8 k/uL (1.3-7.7); Neutrophils % (A) 74 %; Platelet Count 348 k/uL (150-450); RBC 4.44 m/uL (4.30-5.90); WBC 13.4 k/uL (3.8-10.6)
[2021-10-15] MEDS: PANTOPRAZOLE 40 MG TABLET PO SCH ×2 (06:27→16:20)
[2021-10-15 08:14] LABS: ALT 31 U/L (4-49); AST 50 U/L (17-59); African American GFR (CKD) >90 (>60 ml/min/1.73 sqM); Albumin 3.3 g/dL (3.5-5.0); Alkaline Phosphatase 100 U/L (38-126); Anion Gap 3 mmol/L; Blood Urea Nitrogen 17 mg/dL (9-20); Calcium 8.8 mg/dL (8.4-10.2); Carbon Dioxide 33 mmol/L (22-30); Chloride 108 mmol/L (98-107); Glucose 117 mg/dL (74-99); Non-African American GFR(CKD) >90 (>60 ml/min/1.73 sqM); Potassium 3.4 mmol/L (3.5-5.1); Sodium 144 mmol/L (137-145); Total Bilirubin 0.6 mg/dL (0.2-1.3); Total Protein 6.4 g/dL (6.3-8.2)
--- NOTE | 2021-10-15 08:46 | P.PN ---
Subjective Progress Note Date: 10/15/21 Principal diagnosis: Hypertension urgency The patient is a 51-year-old gentleman with a past medical history significant for chronic alcohol use as well as hypertension and dyslipidemia and smoking who was admitted to the hospital with alcohol withdrawal symptoms and elevated blood pressure. The patient was seen today. He continues to have a change in mental status under investigation for possible meningitis/encephalopathy. Beside that hemodynamically he is stable. The pressure overall under reasonable control. From a cardiovascular standpoint of view, we'll continue the current medical regimen and follow-up with the patient on when necessary Objective - Vital Signs Vital signs: Vital Signs Temp 99.9 F H 10/15/21 04:00 Pulse 93 10/15/21 07:00 Resp 20 10/15/21 07:00 BP 145/94 10/15/21 07:00 Pulse Ox 91 L 10/15/21 07:00 Intake & Output 10/14/21 10/15/21 10/15/21 18:59 06:59 18:59 Intake Total 1000 850 75 Output Total 570 415 90 Balance 430 435 -15 Weight 116 kg Intake: IV 855 825 75 Sodium Chloride 0.9% 1, 855 825 75 000 ml @ 75 mls/hr IV . [id number] [facility] Rx#:[id number] Intake, IV Titration 25 25 Amount Piperacillin-Tazobactam 3 25 25 .375 gm In Sodium Chloride 0.9% 100 ml @ 25 mls/hr IVPB Q8HR [facility] Rx# :[id number] Oral 120 Output: Urine 570 415 90 Other: Voiding Method Indwelling Catheter Indwelling Catheter - Constitutional General appearance: Present: no acute distress - Respiratory Respiratory: bilateral: diminished - Cardiovascular Rhythm: regular - Labs CBC & Chem 7: 10/15/21 05:25 10/15/21 07:30 Labs: Abnormal Lab Results - Last 24 Hours (Table) 10/14/21 10/14/21 10/14/21 Range/Units 10:32 10:32 11:00 WBC 13.2 H (3.8-10.6) k/uL Neutrophils # 10.7 H (1.3-7.7) k/uL Potassium 3.1 L (3.5-5.1) mmol/L Chloride (98-107) mmol/L Carbon Dioxide (22-30) mmol/L Creatinine 0.64 L (0.66-1.25) mg/dL Glucose 160 H (74-99) mg/dL Albumin (3.5-5.0) g/dL Urine Protein 1+ H (Negative) Urine Blood Small H (Negative) Ur Leukocyte Esterase Small H (Negative) Urine RBC 23 H (0-5) /hpf Urine WBC 26 H (0-5) /hpf Calcium Oxalate Crystal Rare H (None) /hpf Amorphous Sediment Rare H (None) /hpf Urine Bacteria Rare H (None) /hpf Urine Mucus Many H (None) /hpf CSF Glucose (40-70) mg/dL 10/14/21 10/15/21 10/15/21 Range/Units 15:20 05:25 07:30 WBC 13.4 H (3.8-10.6) k/uL Neutrophils # 9.8 H (1.3-7.7) k/uL Potassium 3.4 L (3.5-5.1) mmol/L Chloride 108 H (98-107) mmol/L Carbon Dioxide 33 H (22-30) mmol/L Creatinine (0.66-1.25) mg/dL Glucose 117 H (74-99) mg/dL Albumin 3.3 L (3.5-5.0) g/dL Urine Protein (Negative) Urine Blood (Negative) Ur Leukocyte Esterase (Negative) Urine RBC (0-5) /hpf Urine WBC (0-5) /hpf Calcium Oxalate Crystal (None) /hpf Amorphous Sediment (None) /hpf Urine Bacteria (None) /hpf Urine Mucus (None) /hpf CSF Glucose 75 H (40-70) mg/dL Microbiology - Last 24 Hours (Table) 10/14/21 11:00 Urine Culture - Preliminary Urine,Clean Catch 10/14/21 15:20 CSF Culture - Preliminary Cerebral Spinal Fluid Assessment and Plan Assessment: Assessment #1 alcohol withdrawal #2 uncontrolled blood pressure/hypertension urgency #3 history of smoking #4. Profound sweating #5 multiple comorbid conditions Plan #1 continue the current medical regimen #2 follow-up with the patient on when necessary K
[2021-10-15] MEDS: PIPERACILLIN-TAZOBACTAM 3.375 GM in SODIUM CHLORIDE 0.9% 100 ML IVPB SCH ×2 (09:13→16:20)
[2021-10-15] MEDS: lisinopriL 10 MG TAB PO SCH (09:14)
[2021-10-15] MEDS: DILTIAZEM CD 300 MG CAP.ER.24H PO SCH (09:14)
[2021-10-15] MEDS: METOPROLOL SUCCINATE (ER) 100 MG TAB.ER.24H PO SCH (09:14)
[2021-10-15] MEDS: NICOTINE 21MG/24HR PATCH TRANSDERM SCH (09:14)
[2021-10-15] MEDS: THIAMINE 100 MG TAB PO SCH (09:14)
[2021-10-15] MEDS: GABAPENTIN 100 MG CAP PO SCH ×3 (09:14→20:50)
[2021-10-15] MEDS: HEPARIN SODIUM,PORCINE/PF 5,000 UNIT/0.5 ML SYRINGE SQ SCH ×2 (09:14→21:13)
--- NOTE | 2021-10-15 10:46 | P.PN ---
Subjective Progress Note Date: 10/15/21 On 10/13/2021 patient seen in follow-up in intensive care unit, he is more awake today, he is following simple commands, he is confused, but calm, and not agitated. At times he still yells out, however not physically aggressive. He is breathing comfortably, she is currently on 4 L of oxygen his pulse ox is 92- 93%. He is afebrile, hemodynamically he is stable, patient remains on 0.0 normal saline at a rate of 75 ML per hour, no other drips. Patient has not received any Ativan in the last 24 hours. She remains on when necessary Haldol, maintenance on Seroquel 50 mg daily, and bedtime Seroquel has been discontinued, psychiatry services are following, and Asenapine has been added. Patient seems to be calmer and more cooperative today. Speech therapy is at the bedside and feeding the patient regular diet, patient seems to have a good appetite although he is requiring feeding. Brain CT showed no acute changes, negative unenhanced head CT scan. Patient has been afebrile overnight, hemodynamically stable, in sinus mechanism, slightly tachycardic with a rate of 103, remains on Zosyn. Blood and urine cultures are negative. Last chest x-ray from 10/11/2021 showed cardiomegaly, and mild interstitial edema. No signs have been stable, it is labs have been reviewed, there is an improvement in patient's leukocytosis, with little count is down to 12, hemoglobin is 13, platelet count is 386, sodium is 145, potassium 3.3, chloride is 108, CO2 is 27, BUN is 15, creatinine 0.69, LFTs are within normal limits, troponin was 0.07. Patient continues on GI and DVT prophylaxis. Blood pressure seems to be better controlled, cardiology recommendations have been noted. On 10/14/2021 patient seen in follow-up in the intensive care unit. There has been a change in his level of consciousness, and patient has been increasingly more confused, he is not making eye contact, although his eyes are open. He is mumbling. Last night he was noted to be more lethargic, and a blood gas was obtained showing pO2 of 73, pCO2 of 39, and pH is 7.38 and this was done on FiO2 of 35%. According to nursing staff patient did not receive any Ativan, however his been undergoing frequent medication changes including his psychotropics to control his agitation, and delirium. Patient at this time has been in the hospital for 19 days, he is thought to be out of the delirium tremens window,. He is required minimal Ativan in the last 48 hours, however he has required significant doses of Ativan in the beginning stages of acute alcohol withdrawal in addition to high doses of Precedex and other atypical antipsychotics. Brain CT from 10/11/2021 showed no sign of intracranial hemorrhage, and fairly normal aeration of the mastoid sinuses, no other acute findings. As of yesterday patient was still receiving Seroquel, and the bedtime dose was adjusted, his bedtime dose was eliminated due to excessive sedation, and another atypical antipsychotic was added on by psychiatry service Asenapine, in addition to Neurontin. Patient had Haldol available on an as-needed basis, as well as Librium. Patient is having low-grade fevers, and he completed a course of Zosyn for a urinary tract infection and blood and urine cultures have shown no growth. At this time in view of his low-grade fevers we will reculture him we'll obtain an history of blood cultures, urinalysis with culture. This morning he seen in the intensive care unit, does not appear to be in any respiratory distress, he is currently on 5 L of oxygen pulse ox of 90%, temperature this morning is 99.8 axillary, at times patient is hypertensive, cardiology is following, and patient is currently on a combination of [place], beta blockers in the form of Toprol- XL 200 mg daily, lisinopril 10 mg daily, and clonidine patch of 0.3 and aida nidine patch every 7 days. I'll intake has been poor. Remains on IV hydration with 0.9 normal saline at a rate of 75 ML per hour. His weight trend shows significant weight loss since admission, overall patient is down 17.5 kg since admission. On 10/15/2021 patient seen in follow-up in the intensive care unit, yesterday his antipsychotics have been stopped, patient did not receive anything in the last 24 hours, no Ativan, no antipsychotics, his Neurontin has been restarted per psychiatry, today patient is more awake, patient remains confused, but definite more alert on today's exam, disoriented 3, tries to squeeze hands on command, however he is very weak. Requires complete assistance with all ADLs including feeding. Patient has been excepting oral fluids, appetite remains poor, he is on an sure supplemental drinks. He was dynamically stable, blood pressure this morning is 135/90, he is in sinus mechanism with a rate of 103 bpm, he is on 7 L of oxygen with a pulse ox of 91-96%, continues to have some low-grade fevers, his pro-calcitonin level was negative at 0.12. Chest x-ray shows probable basilar atelectasis. Urinalysis still shows evidence of urinary tract infection, Zosyn has been restarted per ID service recommendations, LP study was done showing normal glucose of 75, total protein 58, clear, colorless fluid, and 1 nucleated cell, this is not consistent with bacterial meningitis. There is an labs have been reviewed showing white blood cell count of 13.4, hemoglobin of 13.1, platelet count of 348, INR of 1.0, sodium 144, potassium is 3.4, chloride is 108, CO2 33, BUN 17 creatinine 0.73. LFTs are within normal limits, ammonia level was 16. A set of blood cultures were sent yesterday, urinalysis showed small amt of leuks and 26 of WBC, urine culture is pending. CSF culture is pending. No nausea vomiting or diarrhea, abdomen is soft, patient is tolerating oral intake, Mendez catheter is in place, he is producing 30-40 mL of urine an hour. C of the brain right distal ICA somewhat hyperdense, sometimes could be associated with ICA thrombosis, no acute hemorrhage, CTA [place] recommended and completed, no abnormality. All cultures remain negative. Generally weak, but no focal deficit is noted, speech is slow, but not dysarthric. Psychiatry services are following, currently all of his psychotropics are on hold. In the course of his hospitalization patient has received 170 mg of Ativan, 7500 mg of Seroquel, 54 mg of Haldol, 8 mg of Xanax, 195 mg of [place], 32 mg of Zanaflex, 4575 mg of Librium, 260 mg of doxepin, and he was on Precedex for 2 weeks. Since appetite remains poor, he is on nutritional supplements, and he is on IV fluids at 75 ML per hour. He is in sinus mechanism, hemodynamically he is stable. Patient was noted to have developed stage III decubitus pressure ulcer on his left heel, and there is an unstageable decubitus ulcer on his right heel, infectious disease is following, the base of the left heel ulcer is open, and there is small amount of drainage which will culture. Patient is receiving silver dressing to the left heel with protective dressing for ID service recommendations. Objective - Vital Signs Vital signs: Vital Signs Temp 99.9 F H 10/15/21 04:00 Pulse 93 10/15/21 07:00 Resp 20 10/15/21 07:00 BP 145/94 10/15/21 07:00 Pulse Ox 91 L 10/15/21 07:00 Intake & Output 10/14/21 10/15/21 10/15/21 18:59 06:59 18:59 Intake Total 1000 850 75 Output Total 570 415 90 Balance 430 435 -15 Weight 116 kg Intake: IV 855 825 75 Sodium Chloride 0.9% 1, 855 825 75 000 ml @ 75 mls/hr IV . [id number] [facility] Rx#:[id number] Intake, IV Titration 25 25 Amount Piperacillin-Tazobactam 3 25 25 .375 gm In Sodium Chloride 0.9% 100 ml @ 25 mls/hr IVPB Q8HR [facility] Rx# :[id number] Oral 120 Output: Urine 570 415 90 Other: Voiding Method Indwelling Catheter Indwelling Catheter - Exam GENERAL EXAM: Awake, confused, does not make eye contact, 51-year-old white male, a week, calling out, at times able to follow simple command and attempts to squeeze hand on command although not able to close his fist resting in bed, on 4 L of oxygen the pulse ox of 92%, HEAD: Normocephalic/atraumatic. EYES: Normal reaction of pupils, equal size. Conjunctiva pink, sclera white. NOSE: Clear with pink turbinates. THROAT: No erythema or exudates. NECK: No masses, no JVD, no thyroid enlargement, no adenopathy. CHEST: No chest wall deformity. Symmetrical expansion. LUNGS: Equal air entry with no crackles, wheeze, rhonchi or dullness. CVS: Regular rate and rhythm, normal S1 and S2, no gallops, no murmurs, no rubs ABDOMEN: Soft, nontender. No hepatosplenomegaly, normal bowel sounds, no g uarding or rigidity. EXTREMITIES: No clubbing, no edema, no cyanosis, 2+ pulses and upper and lower extremities. MUSCULOSKELETAL: Muscle strength and tone normal. SPINE: No scoliosis or deformity SKIN: No rashes CENTRAL NERVOUS SYSTEM: Awake and confused. No focal deficits, tone is normal in all 4 extremities. - Labs CBC & Chem 7: 10/15/21 05:25 10/15/21 07:30 Labs: Abnormal Lab Results - Last 24 Hours (Table) 10/14/21 10/14/21 10/14/21 Range/Units 10:32 10:32 11:00 WBC 13.2 H (3.8-10.6) k/uL Neutrophils # 10.7 H (1.3-7.7) k/uL Potassium 3.1 L (3.5-5.1) mmol/L Chloride (98-107) mmol/L Carbon Dioxide (22-30) mmol/L Creatinine 0.64 L (0.66-1.25) mg/dL Glucose 160 H (74-99) mg/dL Albumin (3.5-5.0) g/dL Urine Protein 1+ H (Negative) Urine Blood Small H (Negative) Ur Leukocyte Esterase Small H (Negative) Urine RBC 23 H (0-5) /hpf Urine WBC 26 H (0-5) /hpf Calcium Oxalate Crystal Rare H (None) /hpf Amorphous Sediment Rare H (None) /hpf Urine Bacteria Rare H (None) /hpf Urine Mucus Many H (None) /hpf CSF Glucose (40-70) mg/dL 10/14/21 10/15/21 10/15/21 Range/Units 15:20 05:25 07:30 WBC 13.4 H (3.8-10.6) k/uL Neutrophils # 9.8 H (1.3-7.7) k/uL Potassium 3.4 L (3.5-5.1) mmol/L Chloride 108 H (98-107) mmol/L Carbon Dioxide 33 H (22-30) mmol/L Creatinine (0.66-1.25) mg/dL Glucose 117 H (74-99) mg/dL Albumin 3.3 L (3.5-5.0) g/dL Urine Protein (Negative) Urine Blood (Negative) Ur Leukocyte Esterase (Negative) Urine RBC (0-5) /hpf Urine WBC (0-5) /hpf Calcium Oxalate Crystal (None) /hpf Amorphous Sediment (None) /hpf Urine Bacteria (None) /hpf Urine Mucus (None) /hpf CSF Glucose 75 H (40-70) mg/dL Microbiology - Last 24 Hours (Table) 10/14/21 11:00 Urine Culture - Preliminary Urine,Clean Catch 10/14/21 15:20 CSF Culture - Preliminary Cerebral Spinal Fluid Assessment and Plan Plan: Assessment: #1. Altered mental status, possibly drug induced/versus toxic or metabolic encephalopathy. Patient initially came in for acute alcohol withdrawal, with acute delirium tremens and encephalopathy. At this point patient has been in the hospital for 19 days, and he is outside the window for delirium tremens however he has a component of drug induced encephalopathy. CT of the brain on 10/11/2021 showed no acute intracranial abnormalities. However clinically patient's mentation is still quiet significantly altered, rule out possibility of toxic metabolic encephalopathy, blood cultures have been sent and pending, urinalysis shows possibility of urinary tract infection, chest x-ray showed basilar atelectasis, and patient is currently covered with Zosyn. Lumbar puncture has been completed showing no clear evidence of bacterial meningitis, CSF cultures are still pending. CSF fluid was clear colorless fluid with glucose content of 75, normal protein, and only 1 nucleated cell #2. Rule out possibility of HSV encephalitis, lumbar puncture was done on 10/14/2021, CSF cultures are pending #3. Chronic alcoholism #4. Hypertension, currently better controlled #5. Hyperlipidemia #6. Nicotine dependence #7. History of chronic anxiety, depression and bipolar disorder #8. Acid reflux disorder #9. Chronic liver disease with some mild elevation of the AST compared to the ALT, normal coagulation profile #10. Urinary tract infection, on Zosyn #11. Stage III on the left heel, with draining base, wound cultures will be sent #12. Unstageable decubitus ulcer on the right heel Plan: Patient is more alert, but remains confused, He continues to have low-grade fever CXR has been reviewed just showing basilar atelectasis CT angiogram of the brain results have been noted CSF results are not consistent with bacterial meningitis, cultures are still pending Urinalysis showing possibility of urinary tract infection patient has been restarted on Zosyn In addition patient has a stage III open wound on his left heel and unstageable on his right heel Wound cultures will be sent HEENT aspiration precautions Continue GI and DVT prophylaxis We'll continue to follow cultures assistance with meals, encourage oral intake Consult dietary for recommendations for wound breakdown Consult wound care services Continue close monitoring in the ICU I have personally seen and examined the patient, performed the documentation and the assessment and plan as written. Number of minutes spent on the visit: [10] I have personally seen and examined the patient and reviewed the documentation. I performed a joint evaluation with the nurse practitioner in this evaluation was done more than 20 minutes. I fully agree with the documentation above and the plan of care.. The workup is still in progress. The neuro workup has been negative. I cannulated the amount of Dr. the patient has taken over the past 1 week and the patient has taken extensive amount of Ativan and Haldol and Seroquel. As such, there may be a component of drug induced encephalopathy. Note that the patient is currently off sedative medications. LP was negative. CAT scan of the brain was again negative. We are going to take care of the heel wounds. We'll continue to follow. Time with Patient: Greater than 30
--- NOTE | 2021-10-15 11:38 | P.CONS ---
History of Present Illness - Reason for Consult Consult date: 10/15/21 wound care - History of Present Illness This is a 51-year-old gentleman being seen in ICU for a nonhealing ulceration with pressure component to the left heel and a pressure injury to the right heel. Patient is a poor historian. He has been hospitalized since 09/25/2021. Patient developed a pressure ulceration to the left calcaneus. Ulceration measures approximately 2.5 x 3 x 0.1 cm fat layer exposed, wound edges are attached to the wound base, no tunneling or undermining noted. There is minimal slough noted to the wound bed with granulation seen throughout. The area wound does show some ecchymosis. Utilizing absorptive silver to the site previously honey. His past medical history significant for hypertension, hyperlipidemia, GERD, every day smoker, EtOH abuse Review Of Systems: Constitutional: No fever, no chills, no night sweats. No weight change. No weakness, fatigue or lethargy. No daytime sleepiness. Integumentary:reports wounds, no lesions. No rash or pruritus. No unusual bruising. No change in hair or nails. Physical exam: General Appearance: Alert, cooperative, no distress, appears stated age. Skin: See HPI all other Skin color, texture, tugor normal, no rashes or lesions. Neurologic: Alert oriented x3 Assessment: 1. Stage II pressure ulcer left calcaneus 2. Stage I pressure ulcer right calcaneus 3. Nicotine dependence Plan: 1.Left calcaneus: Apply absorptive silver, saline moistened gauze, border foam for protection. Change Tuesday. Right calcaneus: Apply zinc barrier cream and border foam for protection change Tuesday. Utilize foam heel protectors. If the right calcaneus ulceration opens to reveal a ulceration may apply absorptive silver, saline moistened gauze and border foam to the site. Thank you for the consultation any questions please contact the wound care center DNP note has been reviewed and discussed with Dr. Voss and the impression and plan of care has been directed as dictated. Past Medical History Past Medical History: GERD/Reflux, Hyperlipidemia, Hypertension Additional Past Medical History / Comment(s): Hx of pancreatitis. TONGUE LESION History of Any Multi-Drug Resistant Organisms: None Reported Past Surgical History: Cholecystectomy, Hernia Repair Additional Past Surgical History / Comment(s): SX ON NOSE TEEN FOR FX NOSE. COLONOSCOPY/EGD Past Anesthesia/Blood Transfusion Reactions: No Reported Reaction Past Psychological History: Anxiety, Bipolar, Depression Smoking Status: Current every day smoker Past Alcohol Use History: Abuse, Daily Additional Past Alcohol Use History / Comment(s): SMOKES 1 PPD SINCE AGE 11 Past Drug Use History: None Reported - Past Family History Mother Family Medical History: No Reported History Father Family Medical History: Pneumonia Medications and Allergies Home Medications Medication Instructions Recorded Confirmed Type Simvastatin 40 mg PO HS 03/10/16 09/25/21 History cloNIDine HCL [Catapres] 0.2 mg PO TID 03/10/16 09/25/21 History Metoprolol Succinate [Toprol XL] 200 mg PO DAILY 06/30/18 09/25/21 History Doxepin [SINEquan] 10 mg PO BID 04/30/21 09/25/21 History Metoclopramide [Reglan] 10 mg PO BID 04/30/21 09/25/21 History Sildenafil Citrate 50 mg PO DAILY PRN 04/30/21 09/25/21 History tiZANidine HCL 4 mg PO DAILY 04/30/21 09/25/21 History ALPRAZolam [Xanax] 1 mg PO BID 09/22/21 09/25/21 History HYDROcodone/APAP 7.5-325MG [Dawson 1 tab PO TID 09/22/21 09/25/21 History 7.5-325] Omeprazole 40 mg PO BID 09/22/21 09/25/21 History QUEtiapine FUMARATE [SEROquel] 300 mg PO HS 09/22/21 09/25/21 History QUEtiapine XR [SEROquel XR] 150 mg PO HS 09/22/21 09/25/21 History Diltiazem Cd [Cardizem CD] 300 mg PO DAILY 09/25/21 09/25/21 History Allergies Allergy/AdvReac Type Severity Reaction Status Date / Time No Known Allergies Allergy Verified 09/25/21 17:41 Physical Exam Vitals: Vital Signs Temp Pulse Pulse Resp BP Pulse Ox 10/15/21 07:00 93 20 145/94 91 L 10/15/21 06:00 93 33 H 145/88 94 L 10/15/21 05:00 71 31 H 133/80 96 10/15/21 04:00 99.9 F H 75 105 H 25 H 133/83 97 10/15/21 03:00 74 37 H 132/79 96 10/15/21 02:00 79 39 H 145/83 97 10/15/21 01:00 78 19 133/82 97 10/15/21 00:15 80 29 H 133/82 98 10/15/21 00:00 99.3 F 81 19 136/80 97 10/14/21 23:00 85 22 139/104 97 10/14/21 22:00 94 22 136/84 95 10/14/21 21:00 87 25 H 120/72 96 10/14/21 20:00 100.0 F H 85 25 H 161/95 97 10/14/21 19:00 99.8 F H 100 15 161/95 96 10/14/21 18:00 97 29 H 143/94 96 10/14/21 17:00 101 H 21 135/94 95 10/14/21 16:00 99.6 F 101 H 105 H 17 133/93 94 L 10/14/21 15:00 96 20 150/95 95 10/14/21 14:00 97 29 H 144/89 91 L 10/14/21 13:45 92 22 144/89 91 L 10/14/21 13:00 127/83 10/14/21 12:00 80 105 H 24 145/102 93 L Intake and Output 10/14/21 10/15/21 10/15/21 22:59 06:59 14:59 Intake Total 620 600 75 Output Total 395 290 90 Balance 225 310 -15 Intake: IV 450 600 75 Sodium Chloride 0.9% 1, 450 600 75 000 ml @ 75 mls/hr IV . [id number] [facility] Rx#:[id number] Intake, IV Titration 50 Amount Piperacillin-Tazobactam 3 50 .375 gm In Sodium Chloride 0.9% 100 ml @ 25 mls/hr IVPB Q8HR [facility] Rx# :[id number] Oral 120 Output: Urine 395 290 90 Other: Voiding Method Indwelling Catheter Indwelling Catheter Weight 116 kg Results CBC & Chem 7: 10/15/21 05:25 10/15/21 07:30 Labs: Abnormal Lab Results - Last 24 Hours (Table) 10/14/21 10/14/21 10/15/21 Range/Units 11:00 15:20 05:25 WBC 13.4 H (3.8-10.6) k/uL Neutrophils # 9.8 H (1.3-7.7) k/uL Potassium (3.5-5.1) mmol/L Chloride (98-107) mmol/L Carbon Dioxide (22-30) mmol/L Glucose (74-99) mg/dL Albumin (3.5-5.0) g/dL Urine Protein 1+ H (Negative) Urine Blood Small H (Negative) Ur Leukocyte Esterase Small H (Negative) Urine RBC 23 H (0-5) /hpf Urine WBC 26 H (0-5) /hpf Calcium Oxalate Crystal Rare H (None) /hpf Amorphous Sediment Rare H (None) /hpf Urine Bacteria Rare H (None) /hpf Urine Mucus Many H (None) /hpf CSF Glucose 75 H (40-70) mg/dL 10/15/21 Range/Units 07:30 WBC (3.8-10.6) k/uL Neutrophils # (1.3-7.7) k/uL Potassium 3.4 L (3.5-5.1) mmol/L Chloride 108 H (98-107) mmol/L Carbon Dioxide 33 H (22-30) mmol/L Glucose 117 H (74-99) mg/dL Albumin 3.3 L (3.5-5.0) g/dL Urine Protein (Negative) Urine Blood (Negative) Ur Leukocyte Esterase (Negative) Urine RBC (0-5) /hpf Urine WBC (0-5) /hpf Calcium Oxalate Crystal (None) /hpf Amorphous Sediment (None) /hpf Urine Bacteria (None) /hpf Urine Mucus (None) /hpf CSF Glucose (40-70) mg/dL Microbiology - Last 24 Hours (Table) 10/14/21 11:00 Urine Culture - Preliminary Urine,Clean Catch 10/14/21 15:20 CSF Culture - Preliminary Cerebral Spinal Fluid Assessment and Plan (1) Pressure injury of left heel, stage 2 Current Visit: Yes Status: Acute Code(s): L89.622 - PRESSURE ULCER OF LEFT HEEL, STAGE 2 SNOMED Code(s): 056121129 (2) Pressure injury of right heel, stage 1 Current Visit: Yes Status: Acute Code(s): L89.611 - PRESSURE ULCER OF RIGHT HEEL, STAGE 1 SNOMED Code(s): 803829336 (3) Nicotine dependence Current Visit: Yes Status: Acute Code(s): F17.200 - NICOTINE DEPENDENCE, UNSPECIFIED, UNCOMPLICATED SNOMED Code(s): 11556593
[2021-10-15] MEDS ORDERED: POTASSIUM CHLORIDE ER 20 MEQ TAB.ER PO SCH (13:00)
[2021-10-15] MEDS: SODIUM CHLORIDE 0.9% 1,000 ML IV SCH ×2 (13:08→21:13)
[2021-10-15] MEDS: POTASSIUM CHLORIDE 10 MEQ in SODIUM CHLORIDE 0.9% 100 ML IVPB SCH ×4 (14:05→17:20)
--- NOTE | 2021-10-15 16:53 | P.PN ---
Subjective Progress Note Date: 10/15/21 Principal diagnosis: Fever and left heel pressure ulcer Patient is a 51-year-old male presented to the hospital on 09/25/2021 for help with getting sober and preventing DTs in this patient who did have a significant history of drinking, patient has been in the ICU and has been running fever for the last few days. On today's evaluation there is 10/15/2021 the patient is running a low-grade fever of 99.9F the patient remains to be lethargic and unable to void and his tory, the patient is currently requiring more oxygen no vomiting diarrhea or any other changes reported by nursing staff Objective - Vital Signs Vital signs: Vital Signs Temp 99.9 F H 10/15/21 04:00 Pulse 93 10/15/21 07:00 Resp 20 10/15/21 07:00 BP 145/94 10/15/21 07:00 Pulse Ox 91 L 10/15/21 07:00 Intake & Output 10/14/21 10/15/21 10/15/21 18:59 06:59 18:59 Intake Total 1000 850 75 Output Total 570 415 90 Balance 430 435 -15 Weight 116 kg Intake: IV 855 825 75 Sodium Chloride 0.9% 1, 855 825 75 000 ml @ 75 mls/hr IV . [id number] [facility] Rx#:[id number] Intake, IV Titration 25 25 Amount Piperacillin-Tazobactam 3 25 25 .375 gm In Sodium Chloride 0.9% 100 ml @ 25 mls/hr IVPB Q8HR [facility] Rx# :[id number] Oral 120 Output: Urine 570 415 90 Other: Voiding Method Indwelling Catheter Indwelling Catheter - Exam GENERAL DESCRIPTION: Middle-age male lying in bed in no distress RESPIRATORY SYSTEM: Unlabored breathing , decreased breath sounds at bases HEART: S1 S2 regular rate and rhythm , ABDOMEN: Soft , no tenderness EXTREMITIES: No edema feet, left heel with a stage II pressure ulcer no cellulitis - Labs CBC & Chem 7: 10/15/21 05:25 10/15/21 07:30 Labs: Abnormal Lab Results - Last 24 Hours (Table) 10/14/21 10/15/21 10/15/21 Range/Units 15:20 05:25 07:30 WBC 13.4 H (3.8-10.6) k/uL Neutrophils # 9.8 H (1.3-7.7) k/uL Potassium 3.4 L (3.5-5.1) mmol/L Chloride 108 H (98-107) mmol/L Carbon Dioxide 33 H (22-30) mmol/L Glucose 117 H (74-99) mg/dL Albumin 3.3 L (3.5-5.0) g/dL CSF Glucose 75 H (40-70) mg/dL Microbiology - Last 24 Hours (Table) 10/14/21 10:32 Blood Culture - Preliminary Blood No Growth after 24 hours 10/14/21 10:32 Blood Culture - Preliminary Blood No Growth after 24 hours 10/14/21 11:00 Urine Culture - Preliminary Urine,Clean Catch 10/14/21 15:20 CSF Culture - Preliminary Cerebral Spinal Fluid Assessment and Plan (1) Fever Current Visit: Yes Status: Acute Code(s): R50.9 - FEVER, UNSPECIFIED SNOMED Code(s): 493000476 Plan: 1patient with fever in this patient admitted to the hospital concerning for DTs now, possible pneumonitis not entirely excluded patient did have a LP CSF exam is normal, urine is mildly positive cultures are currently pending patient to continue with the Zosyn 2-continue with dry Aquacel silver dressing to the left heel to be changed every 48 hour and keep the area of the pressure Time with Patient: Less than 30
[2021-10-15] MEDS: ATORVASTATIN 20 MG TAB PO SCH (20:50)
--- NOTE | 2021-10-15 21:57 | PN ---
PROGRESS NOTE This 51-year-old white male remains obtunded in the ICU. He is sleepy. He awakes but has slow speech, very lethargic, very little movement. All his possible sedative medicines have been discontinued. Neurontin will be his only other medication that could cause some sedation. We are going to stop that. We will do a cortisol level and do an EEG to see about brainwave function. He has no history of seizures for Neurontin to be given at this point. He was using it as an outpatient for neuropathy in his legs. He is getting Zosyn for aspiration pneumonia and possible UTI. He has chronic open wounds to his heels bilaterally. He has encephalopathy of unclear etiology at this point. Spinal tap was done and was negative. Urine culture is partially positive. Chest x-ray shows possible aspiration. He is resting comfortably. HEART: S1, S2. Lungs clear. Blood pressure is under control. Vital signs reviewed. Awaiting spinal tap cultures. All sedative medications have been discontinued. Will watch him. Continue with broad-spectrum antibiotics. Check cortisol level, EEG, possibly will have to transfer him down to the city if we cannot figure out what is wrong with him. Please see further orders. MMODL / IJN: [id number] /
[2021-10-15] MEDS: POTASSIUM CHLORIDE 10 MEQ in WATER FOR INJECTION 1 100ML.BAG IVPB SCH ×2 (22:00→22:55)
[2021-10-15 22:52] LABS: Glucose,Whole Blood 116 mg/dL (75-99)
[2021-10-16] MEDS: PIPERACILLIN-TAZOBACTAM 3.375 GM in SODIUM CHLORIDE 0.9% 100 ML IVPB SCH ×3 (01:35→15:21)
[2021-10-16 06:26] LABS: HCT 37.8 % (39.0-53.0); HGB 12.2 gm/dL (13.0-17.5); Hypochromasia Slight; MCH 30.4 pg (25.0-35.0); MCHC 32.2 g/dL (31.0-37.0); MCV 94.4 fL (80.0-100.0); Mean Platelet Volume 10.9; Platelet Count 308 k/uL (150-450); RDW 13.4 % (11.5-15.5); WBC 14.9 k/uL (3.8-10.6)
[2021-10-16 06:39] LABS: African American GFR (CKD) >90 (>60 ml/min/1.73 sqM); Anion Gap 7 mmol/L; Blood Urea Nitrogen 16 mg/dL (9-20); Carbon Dioxide 28 mmol/L (22-30); Chloride 110 mmol/L (98-107); Glucose 105 mg/dL (74-99); Non-African American GFR(CKD) >90 (>60 ml/min/1.73 sqM); Potassium 3.6 mmol/L (3.5-5.1); Sodium 145 mmol/L (137-145)
[2021-10-16] MEDS: PANTOPRAZOLE 40 MG TABLET PO SCH ×2 (07:03→15:52)
[2021-10-16] MEDS: POTASSIUM CHLORIDE 10 MEQ in WATER FOR INJECTION 1 100ML.BAG IVPB SCH ×2 (07:19→09:45)
[2021-10-16] MEDS: METOPROLOL SUCCINATE (ER) 100 MG TAB.ER.24H PO SCH (09:00)
--- NOTE | 2021-10-16 11:22 | P.PN ---
Subjective Progress Note Date: 10/16/21 On 10/13/2021 patient seen in follow-up in intensive care unit, he is more awake today, he is following simple commands, he is confused, but calm, and not agitated. At times he still yells out, however not physically aggressive. He is breathing comfortably, she is currently on 4 L of oxygen his pulse ox is 92- 93%. He is afebrile, hemodynamically he is stable, patient remains on 0.0 normal saline at a rate of 75 ML per hour, no other drips. Patient has not received any Ativan in the last 24 hours. She remains on when necessary Haldol, maintenance on Seroquel 50 mg daily, and bedtime Seroquel has been discontinued, psychiatry services are following, and Asenapine has been added. Patient seems to be calmer and more cooperative today. Speech therapy is at the bedside and feeding the patient regular diet, patient seems to have a good appetite although he is requiring feeding. Brain CT showed no acute changes, negative unenhanced head CT scan. Patient has been afebrile overnight, hemodynamically stable, in sinus mechanism, slightly tachycardic with a rate of 103, remains on Zosyn. Blood and urine cultures are negative. Last chest x-ray from 10/11/2021 showed cardiomegaly, and mild interstitial edema. No signs have been stable, it is labs have been reviewed, there is an improvement in patient's leukocytosis, with little count is down to 12, hemoglobin is 13, platelet count is 386, sodium is 145, potassium 3.3, chloride is 108, CO2 is 27, BUN is 15, creatinine 0.69, LFTs are within normal limits, troponin was 0.07. Patient continues on GI and DVT prophylaxis. Blood pressure seems to be better controlled, cardiology recommendations have been noted. On 10/14/2021 patient seen in follow-up in the intensive care unit. There has been a change in his level of consciousness, and patient has been increasingly more confused, he is not making eye contact, although his eyes are open. He is mumbling. Last night he was noted to be more lethargic, and a blood gas was obtained showing pO2 of 73, pCO2 of 39, and pH is 7.38 and this was done on FiO2 of 35%. According to nursing staff patient did not receive any Ativan, however his been undergoing frequent medication changes including his psychotropics to control his agitation, and delirium. Patient at this time has been in the hospital for 19 days, he is thought to be out of the delirium tremens window,. He is required minimal Ativan in the last 48 hours, however he has required significant doses of Ativan in the beginning stages of acute alcohol withdrawal in addition to high doses of Precedex and other atypical antipsychotics. Brain CT from 10/11/2021 showed no sign of intracranial hemorrhage, and fairly normal aeration of the mastoid sinuses, no other acute findings. As of yesterday patient was still receiving Seroquel, and the bedtime dose was adjusted, his bedtime dose was eliminated due to excessive sedation, and another atypical antipsychotic was added on by psychiatry service Asenapine, in addition to Neurontin. Patient had Haldol available on an as-needed basis, as well as Librium. Patient is having low-grade fevers, and he completed a course of Zosyn for a urinary tract infection and blood and urine cultures have shown no growth. At this time in view of his low-grade fevers we will reculture him we'll obtain an history of blood cultures, urinalysis with culture. This morning he seen in the intensive care unit, does not appear to be in any respiratory distress, he is currently on 5 L of oxygen pulse ox of 90%, temperature this morning is 99.8 axillary, at times patient is hypertensive, cardiology is following, and patient is currently on a combination of Hygro[place], beta blockers in the form of Toprol- XL 200 mg daily, lisinopril 10 mg daily, and clonidine patch of 0.3 and aida nidine patch every 7 days. I'll intake has been poor. Remains on IV hydration with 0.9 normal saline at a rate of 75 ML per hour. His weight trend shows significant weight loss since admission, overall patient is down 17.5 kg since admission. On 10/15/2021 patient seen in follow-up in the intensive care unit, yesterday his antipsychotics have been stopped, patient did not receive anything in the last 24 hours, no Ativan, no antipsychotics, his Neurontin has been restarted per psychiatry, today patient is more awake, patient remains confused, but definite more alert on today's exam, disoriented 3, tries to squeeze hands on command, however he is very weak. Requires complete assistance with all ADLs including feeding. Patient has been excepting oral fluids, appetite remains poor, he is on an sure supplemental drinks. He was dynamically stable, blood pressure this morning is 135/90, he is in sinus mechanism with a rate of 103 bpm, he is on 7 L of oxygen with a pulse ox of 91-96%, continues to have some low-grade fevers, his pro-calcitonin level was negative at 0.12. Chest x-ray shows probable basilar atelectasis. Urinalysis still shows evidence of urinary tract infection, Zosyn has been restarted per ID service recommendations, LP study was done showing normal glucose of 75, total protein 58, clear, colorless fluid, and 1 nucleated cell, this is not consistent with bacterial meningitis. There is an labs have been reviewed showing white blood cell count of 13.4, hemoglobin of 13.1, platelet count of 348, INR of 1.0, sodium 144, potassium is 3.4, chloride is 108, CO2 33, BUN 17 creatinine 0.73. LFTs are within normal limits, ammonia level was 16. A set of blood cultures were sent yesterday, urinalysis showed small amt of leuks and 26 of WBC, urine culture is pending. CSF culture is pending. No nausea vomiting or diarrhea, abdomen is soft, patient is tolerating oral intake, Mendez catheter is in place, he is producing 30-40 mL of urine an hour. C of the brain right distal ICA somewhat hyperdense, sometimes could be associated with ICA thrombosis, no acute hemorrhage, CTA [place] of [place] recommended and completed, no abnormality. All cultures remain negative. Generally weak, but no focal deficit is noted, speech is slow, but not dysarthric. Psychiatry services are following, currently all of his psychotropics are on hold. In the course of his hospitalization patient has received 170 mg of Ativan, 7500 mg of Seroquel, 54 mg of Haldol, 8 mg of Xanax, 195 mg of Comstock, 32 mg of Zanaflex, 4575 mg of Librium, 260 mg of doxepin, and he was on Precedex for 2 weeks. Since appetite remains poor, he is on nutritional supplements, and he is on IV fluids at 75 ML per hour. He is in sinus mechanism, hemodynamically he is stable. Patient was noted to have developed stage III decubitus pressure ulcer on his left heel, and there is an unstageable decubitus ulcer on his right heel, infectious disease is following, the base of the left heel ulcer is open, and there is small amount of drainage which will culture. Patient is receiving silver dressing to the left heel with protective dressing for ID service recommendations. On today's evaluation on 10/16/2021 patient appears to be more lethargic, and encephalopathic. He is not following commands, but his eyes are open spontaneously, however he is not tracking with his eyes, he is mumbling, no agitation is noted. Low-grade fever overnight, T-max is 100.4F in last 24 hours. He remains on Zosyn for empiric antibiotic coverage, so far his LP CSF cultures have shown no organisms, no PMNs, he is urinalysis was positive, urine culture has shown no growth, blood cultures have been negative. Chest x-ray showing probable basilar atelectasis. Patient remains on 4 L of oxygen his pulse ox is 97%, his cough is weak, lung sounds are positive for a few scattered rhonchi, no crackles. Hemodynamically he is a bit hypertensive with a blood pressure of 176/114. In sinus mechanism with a rate of 96 BPM. Does not appear to be in any acute distress. Diaphoretic this morning. Mendez catheter remains in place patient has been producing adequate urine, the order of 50-75 ML per hour, his oral intake has been quite poor, dietary services were consulted for dietary recommendations. In view of his alteration in his mentation his oral intake has remained quite poor, and patient also has skin breakdown with stage III on his left heel and unstageable deep tissue injury on the right heel. The recommendation has been made to place the Dobbhoff feeding tube and initiate the patient on tube feedings to supplement his nutrition. We'll of his antipsychotics remain on hold, no evidence of agitation. No seizures. Neurology and psychiatry are both following. Patient remains on thiamine 100 mg daily. He is on GI and DVT prophylaxis. Today's labs have been reviewed and white blood cell count of 14.9, hemoglobin is 12.2, sodium is 145, potassium 3.6, chloride is 110, CO2 is 28, BUN is 16, creatinine 0.71 LFTs were within normal limits on yesterday's labs, his last 2 sets of pro-calcitonin were negative at 0.05 and 0.05 on 10/14 and 10/15/2021. Objective - Vital Signs Vital signs: Vital Signs Temp 99.4 F 10/16/21 09:00 Pulse 90 10/16/21 10:00 Resp 20 10/16/21 10:00 BP 160/100 10/16/21 10:00 Pulse Ox 96 10/16/21 10:00 Intake & Output 10/15/21 10/16/21 10/16/21 18:59 06:59 18:59 Intake Total 1500 1100 300 Output Total 750 600 285 Balance 750 500 15 Weight 116 kg 116.9 kg Intake: IV 1500 1000 300 Piperacillin-Tazobactam 3 200 100 .375 gm In Sodium Chloride 0.9% 100 ml @ 25 mls/hr IVPB Q8HR [facility] Rx# :[id number] Potassium Chloride 10 meq 400 In Sodium Chloride 0.9% 100 ml @ 100 mls/hr IVPB Q1HR [facility] Rx#:[id number] Sodium Chloride 0.9% 1, 900 900 300 000 ml @ 75 mls/hr IV . [id number] [facility] Rx#:[id number] Intake, IV Titration 100 Amount Potassium Chloride 10 meq 100 In Water For Injection 1 100ml.bag @ 100 mls/hr IVPB Q1H [facility] Rx#: [id number] Output: Urine 750 600 285 Other: Voiding Method Indwelling Catheter Indwelling Catheter - Exam GENERAL EXAM: Awake, confused, does not make eye contact, 51-year-old white male, mumbling, confused, tdoes not follow command on 4 L of oxygen the pulse ox of 92%, HEAD: Normocephalic/atraumatic. EYES: Normal reaction of pupils, equal size. Conjunctiva pink, sclera white. NOSE: Clear with pink turbinates. THROAT: No erythema or exudates. NECK: No masses, no JVD, no thyroid enlargement, no adenopathy. CHEST: No chest wall deformity. Symmetrical expansion. LUNGS: Equal air entry with no crackles, wheeze, rhonchi or dullness. CVS: Regular rate and rhythm, normal S1 and S2, no gallops, no murmurs, no rubs ABDOMEN: Soft, nontender. No hepatosplenomegaly, normal bowel sounds, no guarding or rigidity. EXTREMITIES: No clubbing, no edema, no cyanosis, 2+ pulses and upper and lower extremities. MUSCULOSKELETAL: Muscle strength and tone normal. SPINE: No scoliosis or deformity SKIN: No rashes CENTRAL NERVOUS SYSTEM: Awake and confused. No focal deficits, tone is normal in all 4 extremities. - Labs CBC & Chem 7: 10/16/21 05:53 10/16/21 05:53 Labs: Abnormal Lab Results - Last 24 Hours (Table) 10/15/21 10/16/21 10/16/21 Range/Units 22:50 05:53 05:53 WBC 14.9 H (3.8-10.6) k/uL RBC 4.00 L (4.30-5.90) m/uL Hgb 12.2 L (13.0-17.5) gm/dL Hct 37.8 L (39.0-53.0) % Chloride 110 H (98-107) mmol/L Glucose 105 H (74-99) mg/dL POC Glucose (mg/dL) 116 H (75-99) mg/dL Microbiology - Last 24 Hours (Table) 10/15/21 11:18 Gram Stain - Preliminary Foot - Left Wound Culture - Preliminary 10/15/21 11:18 Anaerobic Culture - Preliminary Heel - Left 10/14/21 15:20 CSF Gram Stain - Preliminary Cerebral Spinal Fluid CSF Culture - Preliminary 10/14/21 11:00 Urine Culture - Final Urine,Clean Catch 10/14/21 10:32 Blood Culture - Preliminary Blood No Growth after 24 hours 10/14/21 10:32 Blood Culture - Preliminary Blood No Growth after 24 hours Assessment and Plan Plan: Assessment: #1. Altered mental status, possibly drug induced/versus toxic or metabolic encephalopathy. Patient initially came in for acute alcohol withdrawal, with acute delirium tremens and encephalopathy. At this point patient has been in the hospital for 21 days, and he is outside the window for delirium tremens ho wever he has a component of drug induced encephalopathy. CT of the brain on 10/11/2021 showed no acute intracranial abnormalities. However clinically patient's mentation is still quiet significantly altered, blood cultures have been negative, urinalysis shows possibility of urinary tract infection, chest x-ray showed basilar atelectasis, and patient is currently covered with Zosyn. Lumbar puncture has been completed showing no clear evidence of bacterial meningitis, CSF cultures are still pending. CSF fluid was clear colorless fluid with glucose content of 75, normal protein, and only 1 nucleated cell #2. Rule out possibility of HSV encephalitis, lumbar puncture was done on 10/14/2021, CSF cultures are pending #3. Chronic alcoholism #4. Hypertension, currently better controlled #5. Hyperlipidemia #6. Nicotine dependence #7. History of chronic anxiety, depression and bipolar disorder #8. Acid reflux disorder #9. Chronic liver disease with some mild elevation of the AST compared to the ALT, normal coagulation profile #10. Urinary tract infection, on Zosyn #11. Stage III on the left heel, with draining base, wound cultures will be sent #12. Unstageable decubitus ulcer on the right heel Plan: Patient seems more encephalopathic today, he is mumbling, he is not following commands He continues to have low-grade fever CSF results are not consistent with bacterial meningitis, cultures are negative Urinalysis showing possibility of urinary tract infection patient has been restarted on Zosyn Patient has decubitus ulcer on bilateral heels, wound treatment team recommendations has been noted and appreciated ID service is following Patient continues on Zosyn Patient is unable to sustain his nutrition by oral intake related to his altered mental status We will insert a Dobbhoff been initiated tube feedings Continue aspiration precautions Continue GI and DVT prophylaxis Continue close monitoring in the ICU Overall prognosis is guarded Continue holding all psychotropics and narcotics I have personally seen and examined the patient, performed the documentation and the assessment and plan as written. Number of minutes spent on the visit: [10] I have personally seen and examined the patient and reviewed the documentation. I performed a joint evaluation with the nurse practitioner in this evaluation was done more than 20 minutes. I fully agree with the documentation above and the plan of care. The patient be kept in intensive care unit. A Dobbhoff catheter will be inserted and the patient will be started on enteral feeding for nutritional support. We'll continue wound care. No drugs to altered mentation. The patient will be kept in ICU for further monitoring. Case was discussed with urology. Time with Patient: Less than 30
--- NOTE | 2021-10-16 11:29 | EEG ---
ELECTROENCEPHALOGRAM REPORT DATE OF SERVICE: 10/16/2021 CLINICAL HISTORY: This is a 51-year-old gentleman with a history of significant alcohol use who continues to have altered mental status. The video EEG is obtained to evaluate for seizure epileptiform activity. RELEVANT MEDICATION: Ativan. EEG TYPE: A routine 21-channel EEG is performed with video using the 10/20 electrode placement system. DESCRIPTION: The background consists of diffuse, low to moderate voltage of 1 to 2 hertz delta that is semi-rhythmic to nonrhythmic in activity intermixed with diffuse excessive beta activity. There is no physiological sleep architecture seen. There is no focal slowing. Interictal and ictal is none. ACTIVATION PROCEDURE: Photic stimulation and hyperventilation are not performed. CLINICAL INTERPRETATION: This is an abnormal routine EEG. The background slowing is suggestive of severe encephalopathy. There is no focal slowing, epileptiform discharge or seizure on the EEG. The excessive beta activity is likely due to medication effect (Ativan). Clinical correlation is recommended. ANT / SAGEN: [id number] / KAITLYN
[2021-10-16] MEDS ORDERED: NICOTINE 14MG/24HR PATCH TRANSDERM SCH (11:30)
--- NOTE | 2021-10-16 11:52 | XR ---
EXAMINATION TYPE: XR chest 1V portable DATE OF EXAM: 10/16/2021 COMPARISON: 10/14/2021 HISTORY: Feeding tube placement TECHNIQUE: Single frontal view of the chest is obtained. FINDINGS: A feeding tube is seen extending in the left upper quadrant likely within the stomach. Lorenzo ateral infiltrate and small left-sided effusion noted. Soft tissue artifact overlying the left upper lung field. No sizable pneumothorax. Heart size normal. IMPRESSION: 1. Feeding tube overlies the left upper quadrant likely within the stomach. Bilateral infiltrate and small effusion persists.
[2021-10-16 13:52] VITALS: BMI 30.5
[2021-10-16] MEDS: cloNIDine 0.3 MG/24HR PATCH TRANSDERM SCH (15:07)
[2021-10-16] MEDS: NICOTINE 21MG/24HR PATCH TRANSDERM SCH (15:08)
[2021-10-16] MEDS: SODIUM CHLORIDE 0.9% 1,000 ML IV SCH ×2 (15:26→21:09)
[2021-10-16] MEDS: HEPARIN SODIUM,PORCINE/PF 5,000 UNIT/0.5 ML SYRINGE SQ SCH ×2 (15:28→21:08)
--- NOTE | 2021-10-16 15:46 | P.PN ---
Subjective Progress Note Date: 10/16/21 Principal diagnosis: Fever and left heel pressure ulcer Patient is a 51-year-old male presented to the hospital on 09/25/2021 for help with getting sober and preventing DTs in this patient who did have a significant history of drinking, patient has been in the ICU and has been running fever for the last few days. On today's evaluation there is 10/16/2021 the patient is running a low-grade fever of 99.4F the patient is lethargic and unable to provide any history, the patient is currently breathing comfortably on room air, no vomiting diarrhea or any other changes reported by the nursing staff Objective - Vital Signs Vital signs: Vital Signs Temp 99.4 F 10/16/21 09:00 Pulse 90 10/16/21 10:00 Resp 20 10/16/21 10:00 BP 160/100 10/16/21 10:00 Pulse Ox 96 10/16/21 10:00 Intake & Output 10/15/21 10/16/21 10/16/21 18:59 06:59 18:59 Intake Total 1500 1100 300 Output Total 750 600 285 Balance 750 500 15 Weight 116 kg 116.9 kg 116.9 kg Intake: IV 1500 1000 300 Piperacillin-Tazobactam 3 200 100 .375 gm In Sodium Chloride 0.9% 100 ml @ 25 mls/hr IVPB Q8HR [facility] Rx# :[id number] Potassium Chloride 10 meq 400 In Sodium Chloride 0.9% 100 ml @ 100 mls/hr IVPB Q1HR [facility] Rx#:[id number] Sodium Chloride 0.9% 1, 900 900 300 000 ml @ 75 mls/hr IV . [id number] [facility] Rx#:[id number] Intake, IV Titration 100 Amount Potassium Chloride 10 meq 100 In Water For Injection 1 100ml.bag @ 100 mls/hr IVPB Q1H [facility] Rx#: [id number] Output: Urine 750 600 285 Other: Voiding Method Indwelling Catheter Indwelling Catheter - Exam GENERAL DESCRIPTION: Middle-age male lying in bed in no distress RESPIRATORY SYSTEM: Unlabored breathing , decreased breath sounds at bases HEART: S1 S2 regular rate and rhythm , ABDOMEN: Soft , no tenderness EXTREMITIES: No edema feet, bilateral heels is currently dressed no drainage on the dressing - Labs CBC & Chem 7: 10/16/21 05:53 10/16/21 05:53 Labs: Abnormal Lab Results - Last 24 Hours (Table) 10/15/21 10/16/21 10/16/21 Range/Units 22:50 05:53 05:53 WBC 14.9 H (3.8-10.6) k/uL RBC 4.00 L (4.30-5.90) m/uL Hgb 12.2 L (13.0-17.5) gm/dL Hct 37.8 L (39.0-53.0) % Chloride 110 H (98-107) mmol/L Glucose 105 H (74-99) mg/dL POC Glucose (mg/dL) 116 H (75-99) mg/dL Microbiology - Last 24 Hours (Table) 10/14/21 10:32 Blood Culture - Preliminary Blood No Growth after 48 hours 10/14/21 10:32 Blood Culture - Preliminary Blood No Growth after 48 hours 10/15/21 11:18 Gram Stain - Preliminary Foot - Left Wound Culture - Preliminary 10/15/21 11:18 Anaerobic Culture - Preliminary Heel - Left 10/14/21 15:20 CSF Gram Stain - Preliminary Cerebral Spinal Fluid CSF Culture - Preliminary 10/14/21 11:00 Urine Culture - Final Urine,Clean Catch Assessment and Plan (1) Fever Current Visit: Yes Status: Acute Code(s): R50.9 - FEVER, UNSPECIFIED SNOMED Code(s): 760743226 Plan: 1patient with fever in this patient admitted to the hospital concerning for DTs now, possible pneumonitis not entirely excluded patient did have a LP CSF exam which was negative, urine is mildly positive cultures are currently pending patient to continue with the Zosyn and monitor clinical course closely 2-continue with dry Aquacel silver dressing to the left heel to be changed every 48 hour and keep the area of the pressure Patient family at the bedside questions concerned were answered Time with Patient: Less than 30
[2021-10-16] MEDS: lisinopriL 10 MG TAB PO SCH (15:51)
[2021-10-16] MEDS: THIAMINE 100 MG TAB PO SCH (15:52)
[2021-10-16] MEDS: DILTIAZEM ORAL 30 MG TAB PO SCH ×2 (16:28→21:08)
--- NOTE | 2021-10-16 17:10 | DS ---
DISCHARGE SUMMARY Discussed the case with the nurse and the family, which is just a girlfriend. His confusion has not improved after 21 days. His EEG shows severe encephalopathy of unclear etiology, possibly from Ativan usage withdrawals. Despite our treatments and stopping all his mind-altering medications, he is still not improved. have been stopped. He has been treated for aspiration pneumonia, hypertension acceleration. A spinal tap did not show any reason for encephalitis. Hypertension is better controlled. Aspiration pneumonia has been controlled. He has got breakdown ulcers now on his heels, stage III. Being treated with Dobhoff tube for nutrition. He is following limited commands. At this time he is more encephalopathic, mumbling, not following commands, low-grade fevers. CSF negative for bacterial meningitis. Urinary tract infection is being treated with Zosyn, but it is a borderline infection. Nutrition will be given with Dobhoff tube. Aspiration precautions. Severe encephalopathy on EEG not improving. We will transfer the patient down to [facility], as patient does not appear to be improving at this point, and will go from there, as patient continues not to improve. Prognosis is extremely guarded at this time. Continue with enteral feedings for malnutrition and increasing wounds. Await transfer to [facility]. MMODL / IJN: [id number] /
[2021-10-16 17:34] LABS: Glucose,Whole Blood 113 mg/dL (75-99)
[2021-10-16] MEDS: hydrALAZINE HCL 20 MG/ML 1 ML VIAL IVP PRN (19:05)
[2021-10-16] MEDS: ATORVASTATIN 20 MG TAB PO SCH (21:09)
[2021-10-16 23:56] VITALS: BP 128/82; RESP 18; TEMP 98.6
[2021-10-17 01:01] VITALS: PULSE 89
--- NOTE | 2021-10-20 07:38 | CDI ---
Documentation Clarification Form Date: 10/20/2021 07:28:00 AM From: Maria Dolores France Phone: Admit Date: 09/25/2021 05:03:00 PM Patient Name: Pan Maravilla Visit Number: [id number] Discharge Date: 10/17/2021 01:49:00 AM ATTENTION: The Clinical Documentation Specialists (CDI) and [facility] Coding Staff appreciate your assistance in clarifying documentation. Please respond to the clarification below the line at the bottom and electronically sign. The CDI & [facility] Coding staff will review the response and follow-up if needed. Please note: Queries are made part of the Legal Health Record. If you have any questions, please contact the author of this message via ITS. Dr. Jabari Sorto Conflicting documentation has been found in the medical record. As attending physician, please provide clarification. Per 10/15/2021 Dr. Voss consult, patient has Stage I pressure ulcer right heel and Stage II pressure ulcer left heel. Per 10/16/2021 DCS patient has got breakdown ulcers now on his heels, Stage III History/Risk Factors: Long hospital stay Clinical Indicators: Heel ulcers Treatment: Left apply absorptive silver, saline moistened gauze, border foam. If the right calcaneus ulcer opens to reveal an ulceration may apply absorptive silver, saline moistened gauze border foam to site. Please clarify which diagnosis is most appropriate: [ ] Left heel ulcer Stage II and right heel ulcer Stage I [ ] Stage III heel ulcers [ ] Other (please specify) [ ] Unable to determine MTDD
--- NOTE | 2021-10-22 11:13 | CDI ---
Documentation Clarification Form Date: 10/20/2021 07:28:00 AM From: Maria Dolores France Admit Date: 09/25/2021 05:03:00 PM Patient Name: Pan Maravilla Visit Number: [id number] Discharge Date: 10/17/2021 01:49:00 AM ATTENTION: The Clinical Documentation Specialists (CDI) and [facility] Coding Staff appreciate your assistance in clarifying documentation. Please respond to the clarification below the line at the bottom and electronically sign. The CDI & [facility] Coding staff will review the response and follow-up if needed. Please note: Queries are made part of the Legal Health Record. If you have any questions, please contact the author of this message via ITS. Dr. Jabari Sorto Conflicting documentation has been found in the medical record. As attending physician, please provide clarification. Per 10/15/2021 Dr. Voss consult, patient has Stage I pressure ulcer right heel and Stage II pressure ulcer left heel. Per 10/16/2021 DCS patient has got breakdown ulcers now on his heels, Stage III History/Risk Factors: Long hospital stay Clinical Indicators: Heel ulcers Treatment: Left apply absorptive silver, saline moistened gauze, border foam. If the right calcaneus ulcer opens to reveal an ulceration may apply absorptive silver, saline moistened gauze border foam to site. Please clarify which diagnosis is most appropriate: [ ] Left heel ulcer Stage II and right heel ulcer Stage I [ ] Stage III heel ulcers [ ] Other (please specify) [ ] Unable to determine MTDD
[2021-10-23] MEDS ORDERED: NICOTINE 7MG/24HR PATCH TRANSDERM SCH (09:00)
--- NOTE | 2021-10-23 14:38 | PN ---
PROGRESS NOTE ADDENDUM: Left heel ulcer, stage II. Right heel is unstageable. MMODL / IJN: [id number] /
== END 2021-10-17 01:49 | disposition short-term general hospital (02) | DRG 896 ==
LOC: EC 14:17 → 4SSUR 17:03 → 2SICU 09-27 12:14
PROVIDERS: ADMIT Family Medicine; ATTEND Family Medicine
PROC: 009U3ZX Drainage of Spinal Canal, Percutaneous Approach, Diagnostic (ICD-10-PCS; principal; 2021-10-14)
PROC: 3E0G76Z Introduction of Nutritional Substance into Upper GI, Via Natural or Artificial Opening (ICD-10-PCS; 2021-10-16)
PROC: 0DH67UZ Insertion of Feeding Device into Stomach, Via Natural or Artificial Opening (ICD-10-PCS; 2021-10-16)
DX: F10.221 Alcohol dependence with intoxication delirium (principal); G92.8 Other toxic encephalopathy; J69.0 Pneumonitis due to inhalation of food and vomit; J98.11 Atelectasis; N39.0 Urinary tract infection, site not specified; F10.231 Alcohol dependence with withdrawal delirium; Y90.7 Blood alcohol level of 200-239 mg/100 ml; E66.9 Obesity, unspecified; Z68.30 Body mass index [BMI] 30.0-30.9, adult; E78.5 Hyperlipidemia, unspecified; E87.6 Hypokalemia; E87.70 Fluid overload, unspecified; F17.210 Nicotine dependence, cigarettes, uncomplicated; F25.9 Schizoaffective disorder, unspecified; F31.9 Bipolar disorder, unspecified; F41.9 Anxiety disorder, unspecified; L89.610 Pressure ulcer of right heel, unstageable; L89.622 Pressure ulcer of left heel, stage 2; G62.9 Polyneuropathy, unspecified; I27.21 Secondary pulmonary arterial hypertension; G89.29 Other chronic pain; K70.9 Alcoholic liver disease, unspecified; I11.9 Hypertensive heart disease without heart failure; Z20.822 Contact with and (suspected) exposure to COVID-19; I16.0 Hypertensive urgency; D72.829 Elevated white blood cell count, unspecified; K21.9 Gastro-esophageal reflux disease without esophagitis; K59.00 Constipation, unspecified; R45.1 Restlessness and agitation; T50.905A Adverse effect of unspecified drugs, medicaments and biological substances, initial encounter; K14.8 Other diseases of tongue; Z71.3 Dietary counseling and surveillance; M51.36 Other intervertebral disc degeneration, lumbar region; R09.02 Hypoxemia; Z78.1 Physical restraint status; Z79.899 Other long term (current) drug therapy; Z83.6 Family history of other diseases of the respiratory system; Z90.49 Acquired absence of other specified parts of digestive tract; Z98.890 Other specified postprocedural states
CPT/HCPCS: 36410; 36415; 36600; 70450; 70496; 71045; 71046; 76937; 80048; 80053; 80306; 80320; 81001; 82075; 82140; 82150; 82533; 82805; 82945; 82977; 83690; 83735; 84100; 84132; 84145; 84157; 84450; 84460; 84484; 85025; 85027; 85610; 85730; 86140; 87040; 87070; 87075; 87086; 87205; 87529; 87635; 89050; 93005; 93306; 95816; 96361; 96374; 96375; 96376; 99285

== ENCOUNTER 2021-11-26 10:14 | Inpatient (IN) | payer MEDICAID, OTHER ==
[2021-11-26 11:12] LABS: Anisocytosis Slight; Basophils # (A) 0.1 k/uL (0-0.2); Basophils % (A) 1 %; Eosinophils # (A) 0.2 k/uL (0-0.7); Eosinophils % (A) 2 %; HGB 12.5 gm/dL (13.0-17.5); Hypochromasia Moderate; Lymphocytes # (A) 1.4 k/uL (1.0-4.8); Lymphocytes % (A) 15 %; MCH 28.7 pg (25.0-35.0); MCHC 31.9 g/dL (31.0-37.0); MCV 89.8 fL (80.0-100.0); Mean Platelet Volume 9.1; Monocytes # (A) 0.5 k/uL (0-1.0); Monocytes % (A) 5 %; Neutrophils # (A) 6.8 k/uL (1.3-7.7); Neutrophils % (A) 75 %; Platelet Count 385 k/uL (150-450); RBC 4.35 m/uL (4.30-5.90); RDW 16.8 % (11.5-15.5); WBC 9.2 k/uL (3.8-10.6)
--- NOTE | 2021-11-26 11:18 | ED ---
Extremity Problem HPI - General Chief complaint: Extremity Problem,Nontraumatic Stated complaint: Poss DVT Time Seen by Provider: 11/26/21 10:28 Source: patient, family, RN notes reviewed Mode of arrival: ambulatory Limitations: no limitations - History of Present Illness Initial comments: This is a 51-year-old male who presents to the emergency department with right leg pain and swelling. Right leg pain and swelling began 2-3 days ago. He was admitted here from 09/25-10/16. He was initially admitted for alcohol withdrawals, and went on to develop an encephalopathy of unclear etiology. Despite several rounds of imaging, EEGs, and a spinal tap, the cause of the encephalopathy was unclear. They did discontinue all psychotropic medications and he did not have any improvement. He was subsequently transferred to [facility] with a very guarded prognosis. His states that he ended up being on a ventilator for 10 days and developed multiple blood clots in his arms, legs, and lungs. She is very concerned about another blood clot in the leg. He does state that the leg is painful and overall very sore. He is taking Eliquis 5mg BID and he denies any chest pain or shortness of breath. MD Complaint: extremity pain, extremity swelling Onset/Timin -: days(s) Location: right, lower extremity Quality: aching Associated Symptoms: denies other symptoms - Related Data Home Medications Medication Instructions Recorded Confirmed cloNIDine HCL [Catapres] 0.2 mg PO TID 03/10/16 11/26/21 Metoprolol Succinate [Toprol XL] 100 mg PO DAILY 06/30/18 11/26/21 Acetaminophen Tab [Tylenol] 650 mg PO Q6H PRN 11/26/21 11/26/21 Apixaban [Eliquis] 5 mg PO BID 11/26/21 11/26/21 Folic Acid 1 mg PO DAILY 11/26/21 11/26/21 Gabapentin 600 mg PO TID 11/26/21 11/26/21 LORazepam [Ativan] 0.25 mg PO DAILY 11/26/21 11/26/21 LORazepam [Ativan] 0.5 mg PO HS 11/26/21 11/26/21 Mirtazapine [Remeron] 45 mg PO HS 11/26/21 11/26/21 Multivitamin [Multivitamins Adult 1 tab PO DAILY 11/26/21 11/26/21 Gummies] Omeprazole 20 mg PO BID 11/26/21 11/26/21 Polyethylene Glycol 3350 [Miralax] 17 gm PO DAILY PRN 11/26/21 11/26/21 Potassium Chloride ER [K-Dur 20] 40 meq PO DAILY 11/26/21 11/26/21 Thiamine [Vitamin B-1] 100 mg PO DAILY 11/26/21 11/26/21 Allergies Allergy/AdvReac Type Severity Reaction Status Date / Time No Known Allergies Allergy Verified 11/26/21 11:50 Review of Systems ROS Statement: Those systems with pertinent positive or pertinent negative responses have been documented in the HPI. ROS Other: All systems not noted in ROS Statement are negative. Constitutional: Denies: fever, chills ENT: Denies: ear pain, throat pain Respiratory: Denies: cough, dyspnea Cardiovascular: Denies: chest pain, palpitations Gastrointestinal: Denies: abdominal pain, nausea, vomiting, diarrhea Genitourinary: Denies: urgency, dysuria Musculoskeletal: Reports: other (right leg pain) Skin: Denies: rash Neurological: Denies: headache Past Medical History Past Medical History: GERD/Reflux, Hyperlipidemia, Hypertension Additional Past Medical History / Comment(s): Hx of pancreatitis. TONGUE LESION, encephalopathy. History of Any Multi-Drug Resistant Organisms: None Reported Past Surgical History: Cholecystectomy, Hernia Repair Additional Past Surgical History / Comment(s): SX ON NOSE TEEN FOR FX NOSE. COLONOSCOPY/EGD Past Anesthesia/Blood Transfusion Reactions: No Reported Reaction Past Psychological History: Anxiety, Bipolar, Depression Smoking Status: Current every day smoker Past Alcohol Use History: Abuse, Daily Past Drug Use History: None Reported - Past Family History Mother Family Medical History: No Reported History Father Family Medical History: Pneumonia General Exam Limitations: no limitations General appearance: alert, in no apparent distress Head exam: Present: atraumatic, normocephalic, normal inspection Respiratory exam: Present: normal lung sounds bilaterally. Absent: respiratory distress, wheezes, rales, rhonchi, stridor Cardiovascular Exam: Present: regular rate, normal rhythm, normal heart sounds. Absent: systolic murmur, diastolic murmur, rubs, gallop, clicks Extremities exam: Present: other (Calf tenderness of the right lower extremity. Positive Brenden's sign. There is mild nonpitting edema but no erythema or increased heat.) Neurological exam: Present: alert, oriented X3, CN II-XII intact Psychiatric exam: Present: normal affect, normal mood Skin exam: Present: warm, dry, intact, normal color. Absent: rash Course Vital Signs 11/26/21 11/26/21 10:22 14:07 Temperature 98 F Pulse Rate 102 H 92 Respiratory 18 18 Rate Blood Pressure 144/96 127/98 O2 Sat by Pulse 97 97 Oximetry Medical Decision Making - Medical Decision Making This is a 51 year old male who presents to the emergency department for right leg pain and swelling. US venous doppler reveals a persistent DVT in the right lower extremity partially occlusive in the mid and distal superficial femoral vein becoming more occlusive in the popliteal vein. I spoke with Dr. Sorto regarding the findings, and he requested that the patient be admitted with hematology consult for recurrent blood clots. This case was discussed in detail with the attending ED physician. Presentation, findings, and treatment plan discussed in detail as well. - Lab Data Result diagrams: 11/26/21 11:08 11/26/21 11:08 Lab Results 11/26/21 11/26/21 Range/Units 11:08 11:08 WBC 9.2 (3.8-10.6) k/uL RBC 4.35 (4.30-5.90) m/uL Hgb 12.5 L (13.0-17.5) gm/dL Hct 39.0 (39.0-53.0) % MCV 89.8 (80.0-100.0) fL MCH 28.7 (25.0-35.0) pg MCHC 31.9 (31.0-37.0) g/dL RDW 16.8 H (11.5-15.5) % Plt Count 385 (150-450) k/uL MPV 9.1 Neutrophils % 75 % Lymphocytes % 15 % Monocytes % 5 % Eosinophils % 2 % Basophils % 1 % Neutrophils # 6.8 (1.3-7.7) k/uL Lymphocytes # 1.4 (1.0-4.8) k/uL Monocytes # 0.5 (0-1.0) k/uL Eosinophils # 0.2 (0-0.7) k/uL Basophils # 0.1 (0-0.2) k/uL Hypochromasia Moderate Anisocytosis Slight Sodium 142 (137-145) mmol/L Potassium 4.4 (3.5-5.1) mmol/L Chloride 107 (98-107) mmol/L Carbon Dioxide 24 (22-30) mmol/L Anion Gap 11 mmol/L BUN 9 (9-20) mg/dL Creatinine 0.80 (0.66-1.25) mg/dL Est GFR (CKD-EPI)AfAm >90 (>60 ml/min/1.73 sqM) Est GFR (CKD-EPI)NonAf >90 (>60 ml/min/1.73 sqM) Glucose 143 H (74-99) mg/dL Calcium 9.3 (8.4-10.2) mg/dL Total Bilirubin 0.5 (0.2-1.3) mg/dL AST 28 (17-59) U/L ALT 20 (4-49) U/L Alkaline Phosphatase 96 (38-126) U/L Total Protein 7.7 (6.3-8.2) g/dL Albumin 4.2 (3.5-5.0) g/dL - EKG Data EKG shows normal: sinus rhythm Rate: normal EKG Comments: Normal sinus rhythm. Left axis deviation. Ventricular rate 84 bpm, ME interval 146 ms, QRS duration 90 ms, QTC 396 ms. When compared to previous EKG there are: no significant change Interpretation: no acute changes - Radiology Data Radiology results: report reviewed, image reviewed Disposition Clinical Impression: Deep vein thrombosis (DVT) of right lower extremity Disposition: ADMITTED IP TO THIS HOSP
[2021-11-26 11:29] LABS: ALT 20 U/L (4-49); AST 28 U/L (17-59); African American GFR (CKD) >90 (>60 ml/min/1.73 sqM); Albumin 4.2 g/dL (3.5-5.0); Alkaline Phosphatase 96 U/L (38-126); Anion Gap 11 mmol/L; Blood Urea Nitrogen 9 mg/dL (9-20); Calcium 9.3 mg/dL (8.4-10.2); Carbon Dioxide 24 mmol/L (22-30); Chloride 107 mmol/L (98-107); Glucose 143 mg/dL (74-99); Non-African American GFR(CKD) >90 (>60 ml/min/1.73 sqM); Potassium 4.4 mmol/L (3.5-5.1); Sodium 142 mmol/L (137-145); Total Bilirubin 0.5 mg/dL (0.2-1.3); Total Protein 7.7 g/dL (6.3-8.2)
--- NOTE | 2021-11-26 11:48 | US ---
EXAMINATION TYPE: US venous doppler duplex LE RT DATE OF EXAM: 11/26/2021 11:34 AM COMPARISON: NONE CLINICAL HISTORY: right lower extremity pain and swelling. Edema hx of DVT on blood thinners. SIDE PERFORMED: Right TECHNIQUE: The lower extremity deep venous system is examined utilizing real time linear array sonog gay with graded compression, doppler sonography and color-flow sonography. VESSELS IMAGED: Common Femoral Vein Deep Femoral Vein Greater Saphenous Vein * Femoral Vein Popliteal Vein Small Saphenous Vein * Proximal Calf Veins (* superficial vessels) Right Leg: DVT non compressible Femoral Vein mid through Popliteal Vein trickle flow visualized. Grayscale, color doppler, spectral doppler imaging performed of the deep veins of the right lower ext remity. There is normal flow, compressibility, vascular waveforms. IMPRESSION: Persistent DVT in the right lower extremity partially occlusive in the mid and distal bennett perficial femoral vein becoming more occlusive in the popliteal vein.
[2021-11-26] MEDS ORDERED: ACETAMINOPHEN TAB 325 MG TAB PO PRN (12:29)
[2021-11-26] MEDS ORDERED: IBUPROFEN 400 MG TAB PO PRN (12:29)
[2021-11-26] MEDS ORDERED: NALOXONE 0.4 MG/ML 1 ML VIAL IV PRN (12:29)
[2021-11-26] MEDS ORDERED: ONDANSETRON 4 MG/2 ML VIAL IVP PRN (12:29)
[2021-11-26] MEDS ORDERED: KETOROLAC 15 MG/ML 1 ML VIAL IVP PRN (12:29)
[2021-11-26] MEDS: LORazepam 0.5 MG TAB PO SCH ×2 (13:49→21:39)
[2021-11-26] MEDS: NICOTINE 14MG/24HR PATCH TRANSDERM SCH (13:49)
[2021-11-26] MEDS: oxyCODONE-APAP 5-325MG 1 EACH TAB PO PRN ×2 (16:07→21:39)
[2021-11-26] MEDS ORDERED: polyethylene glycoL 3350 17 GM POWD.PACK PO PRN (22:00)
[2021-11-26] MEDS: GABAPENTIN 300 MG CAP PO SCH (22:14)
[2021-11-26] MEDS: MIRTAZAPINE 45 MG TABLET PO SCH (22:15)
[2021-11-26] MEDS: cloNIDine HCL 0.2 MG TAB PO SCH (22:15)
[2021-11-26] MEDS: PANTOPRAZOLE 40 MG TABLET PO SCH (22:15)
[2021-11-27] MEDS: APIXABAN 5 MG TAB PO SCH ×3 (00:28→21:20)
[2021-11-27] MEDS: POTASSIUM CHLORIDE ER 20 MEQ TAB.ER PO SCH (08:38)
[2021-11-27] MEDS: THIAMINE 100 MG TAB PO SCH (08:38)
[2021-11-27] MEDS: METOPROLOL SUCCINATE (ER) 100 MG TAB.ER.24H PO SCH (08:38)
[2021-11-27] MEDS: GABAPENTIN 300 MG CAP PO SCH ×3 (08:38→21:21)
[2021-11-27] MEDS: LORazepam 0.5 MG TAB PO SCH ×3 (08:38→16:02)
[2021-11-27] MEDS: PANTOPRAZOLE 40 MG TABLET PO SCH ×2 (08:39→21:21)
[2021-11-27] MEDS: FOLIC ACID 1 MG TAB PO SCH (08:39)
[2021-11-27] MEDS: NICOTINE 14MG/24HR PATCH TRANSDERM SCH (08:39)
[2021-11-27] MEDS: cloNIDine HCL 0.2 MG TAB PO SCH ×3 (08:39→21:21)
[2021-11-27] MEDS: MULTIVITAMINS, THERA 1 EACH TAB PO SCH (08:39)
[2021-11-27] MEDS: oxyCODONE-APAP 5-325MG 1 EACH TAB PO PRN ×4 (08:40→21:21)
--- NOTE | 2021-11-27 19:24 | P.CONS ---
History of Present Illness - Reason for Consult Consult date: 11/27/21 Recurrent blood clots Requesting physician: Farideh Rollins - History of Present Illness Mr. Maravilla is a 51 year old patient in overall poor health who was recently admitted and cared for in ICU in September related to DTs, respiratory failure and non-healing wounds. He was transferred and treated at [facility] in ICU for 10 days. During that time found to have superficial upper ext thrombus and BLE DVTs, st arted on ELiquis. He is known to have a substantial ETOH and Tobacco abuse history. Now admitted with worsening Right Knee swelling and pain and represented to ER, doppler performed reveal DVT. We have requested the records from [facility] and compared to [facility] doppler and appears this thrombus present at [facility] but likely a bit better. Review of Systems All systems: negative Constitutional: Reports as per HPI Past Medical History Past Medical History: GERD/Reflux, Hyperlipidemia, Hypertension Additional Past Medical History / Comment(s): Hx of pancreatitis. TONGUE LESION, encephalopathy. History of Any Multi-Drug Resistant Organisms: None Reported Past Surgical History: Cholecystectomy, Hernia Repair Additional Past Surgical History / Comment(s): SX ON NOSE TEEN FOR FX NOSE. COLONOSCOPY/EGD Past Anesthesia/Blood Transfusion Reactions: No Reported Reaction Past Psychological History: Anxiety, Bipolar, Depression Smoking Status: Current every day smoker Past Alcohol Use History: Abuse, Daily Past Drug Use History: None Reported - Past Family History Mother Family Medical History: No Reported History Additional Family Medical History / Comment(s): Mother had deoression. She in her sleep recently. Father Family Medical History: Pneumonia Medications and Allergies Home Medications Medication Instructions Recorded Confirmed Type cloNIDine HCL [Catapres] 0.2 mg PO TID 03/10/16 11/26/21 History Metoprolol Succinate [Toprol XL] 100 mg PO DAILY 06/30/18 11/26/21 History Acetaminophen Tab [Tylenol] 650 mg PO Q6H PRN 11/26/21 11/26/21 History Apixaban [Eliquis] 5 mg PO BID 11/26/21 11/26/21 History Folic Acid 1 mg PO DAILY 11/26/21 11/26/21 History Gabapentin 600 mg PO TID 11/26/21 11/26/21 History LORazepam [Ativan] 0.25 mg PO DAILY 11/26/21 11/26/21 History LORazepam [Ativan] 0.5 mg PO HS 11/26/21 11/26/21 History Mirtazapine [Remeron] 45 mg PO HS 11/26/21 11/26/21 History Multivitamin [Multivitamins Adult 1 tab PO DAILY 11/26/21 11/26/21 History Gummies] Omeprazole 20 mg PO BID 11/26/21 11/26/21 History Polyethylene Glycol 3350 [Miralax] 17 gm PO DAILY PRN 11/26/21 11/26/21 History Potassium Chloride ER [K-Dur 20] 40 meq PO DAILY 11/26/21 11/26/21 History Thiamine [Vitamin B-1] 100 mg PO DAILY 11/26/21 11/26/21 History Allergies Allergy/AdvReac Type Severity Reaction Status Date / Time No Known Allergies Allergy Verified 11/26/21 11:50 Physical Exam Vitals: Vital Signs Temp Pulse Pulse Resp BP BP Pulse Ox 11/27/21 12:09 97.7 F 72 20 124/80 95 11/27/21 08:45 85 143/92 11/27/21 05:00 98.3 F 83 20 132/72 96 11/26/21 19:36 97.7 F 87 20 132/87 96 11/26/21 14:07 92 18 127/98 97 Intake and Output 11/26/21 11/27/21 11/27/21 22:59 06:59 14:59 Intake Total 1080 Balance 1080 Intake: Oral 1080 Other: Voiding Method Toilet # Voids 1 1 - Constitutional General appearance: cooperative, no acute distress - EENT Eyes: EOMI ENT: NA/AT - Neck Neck: normal ROM - Respiratory Respiratory: bilateral: CTA - Cardiovascular Rhythm: regularly irregular leg Peripheral Edema: right: 2+ - Gastrointestinal General gastrointestinal: soft - Integumentary Integumentary: pale - Neurologic Neurologic: CNII-XII intact - Musculoskeletal Musculoskeletal: generalized weakness - Psychiatric Psychiatric: A&O x's 3, appropriate affect, intact judgment & insight Results CBC & Chem 7: 11/26/21 11:08 11/26/21 11:08 Venous US: report reviewed Assessment and Plan (1) Deep vein thrombosis (DVT) of right lower extremity Narrative/Plan: We have requested the records from [facility] and compared to [facility] doppler and appears this thrombus present at [facility] but likely a bit better. Will check LLE and BUE dopplers for comparison Dr Monteiro has spoken with Dr. Mesa and recommended compression stocking and o rtho consult COntinue on eliquis at this time Current Visit: Yes Status: Acute Code(s): I82.401 - ACUTE EMBOLISM AND LOIS ANA UNSP DEEP VEINS OF R LOW EXTREM SNOMED Code(s): 521925755 Plan: Dr. Lester: I have completed the full history and physical and developed the above impression and plan, agree with dictation, dictated as a scribe
[2021-11-27] MEDS ORDERED: LORazepam 0.5 MG TAB PO SCH (21:00)
[2021-11-27] MEDS: lamoTRIgine 25 MG TAB PO SCH (21:20)
[2021-11-27] MEDS: MIRTAZAPINE 45 MG TABLET PO SCH (21:21)
--- NOTE | 2021-11-27 22:25 | US ---
EXAMINATION TYPE: US venous doppler duplex LE LT DATE OF EXAM: 11/27/2021 8:27 PM COMPARISON: NONE CLINICAL HISTORY: follow up DVT. Patient has right leg DVT and h/o left arm SVT, assess left leg for DVT, no swelling or pain, on thinners SIDE PERFORMED: Left TECHNIQUE: The lower extremity deep venous system is examined utilizing real time linear array sonog gay with graded compression, doppler sonography and color-flow sonography. VESSELS IMAGED: Common Femoral Vein Deep Femoral Vein Greater Saphenous Vein * Femoral Vein Popliteal Vein Small Saphenous Vein * Proximal Calf Veins (* superficial vessels) Left Leg: Negative for DVT IMPRESSION: No evidence of deep vein thrombosis in the left leg.
--- NOTE | 2021-11-27 22:26 | US ---
EXAMINATION TYPE: US venous doppler duplex UE BI DATE OF EXAM: 11/27/2021 COMPARISON: NONE CLINICAL HISTORY: FU DVT/SVT. h/o left arm SVT when at [facility], on thinners, no pain or s welling now SIDE PERFORMED: Bilateral Right Arm: Negative for DVT and SVT Left Arm: Negative for DVTand SVT IMPRESSION: No evidence of deep vein thrombosis in both arms. No pathologic fluid collection.
[2021-11-28 04:30] VITALS: RESP 16; TEMP 98.7
--- NOTE | 2021-11-28 05:57 | HP ---
HISTORY AND PHYSICAL CHIEF COMPLAINT: A 51-year-old white male admitted to the ICU in September related to DTs, respiratory failure, nonhealing wounds. Transferred to [facility] where he was diagnosed with neuroleptic malignant syndrome. After 10 days he woke up and was sent home. Since he has been home he was found to have blood clots to his lower legs, sitting around at home too much maybe. PAST MEDICAL HISTORY: Hypertension, sciatica, degenerative disc disease, GERD, dyslipidemia, bipolar, neuroleptic malignant syndrome. SURGERIES: Cholecystectomy, hernia repair. Anxiety, bipolar depression. Current everyday smoker. Alcohol daily. FAMILY HISTORY: Reviewed. MEDICATIONS: From [facility], reviewed. 14-point review of systems otherwise negative except for leg swelling. No chest pain, shortness of breath, or hemoptysis. PHYSICAL EXAMINATION: Temp 97.7, pulse 70s to 80s, respiratory 18-20, blood pressure 120/98, O2 saturation 76- 97. Constitutional: Within normal limits. Neck supple. No mass. Respiratory: Scattered rhonchi and wheeze. Cardiovascular: S1, S2. Extremities: 2+ edema. GI: Soft. Neurologic: Cranial nerves intact. Musculoskeletal: Range of motion. Psych: Fair mood and effect. Hemoglobin 12.5, white count 9.2. ASSESSMENT: DVT, right lower extremity. Compression stockings and possibly switching of Eliquis to a different due to breakthrough DVT. Will ask Hematology/Oncology recommendations. He is sitting up in bed. No signs of PE at this time. Possibly discharge once that is confirmed. MMODL / IJN: [id number] /
[2021-11-28 08:32] VITALS: BP 149/100; PULSE 97
[2021-11-28] MEDS: FOLIC ACID 1 MG TAB PO SCH (08:36)
[2021-11-28] MEDS: THIAMINE 100 MG TAB PO SCH (08:36)
[2021-11-28] MEDS: APIXABAN 5 MG TAB PO SCH (08:36)
[2021-11-28] MEDS: GABAPENTIN 300 MG CAP PO SCH (08:36)
[2021-11-28] MEDS: MULTIVITAMINS, THERA 1 EACH TAB PO SCH (08:36)
[2021-11-28] MEDS: NICOTINE 14MG/24HR PATCH TRANSDERM SCH (08:36)
[2021-11-28] MEDS: PANTOPRAZOLE 40 MG TABLET PO SCH (08:36)
[2021-11-28] MEDS: METOPROLOL SUCCINATE (ER) 100 MG TAB.ER.24H PO SCH (08:37)
[2021-11-28] MEDS: LORazepam 0.5 MG TAB PO SCH (08:37)
[2021-11-28] MEDS: lamoTRIgine 25 MG TAB PO SCH (08:37)
[2021-11-28] MEDS: POTASSIUM CHLORIDE ER 20 MEQ TAB.ER PO SCH (08:37)
[2021-11-28] MEDS: cloNIDine HCL 0.2 MG TAB PO SCH (08:37)
[2021-11-28] MEDS: oxyCODONE-APAP 5-325MG 1 EACH TAB PO PRN (08:37)
== END 2021-11-28 11:59 | disposition home or self-care (01) | DRG 299 ==
LOC: EC 10:14 → 5NMEDONC 12:24
PROVIDERS: ADMIT Family Medicine; ATTEND Family Medicine
DX: I82.411 Acute embolism and thrombosis of right femoral vein (principal); G21.0 Malignant neuroleptic syndrome; F31.30 Bipolar disorder, current episode depressed, mild or moderate severity, unspecified; I82.431 Acute embolism and thrombosis of right popliteal vein; I10 Essential (primary) hypertension; F41.9 Anxiety disorder, unspecified; E78.5 Hyperlipidemia, unspecified; F10.20 Alcohol dependence, uncomplicated; K21.9 Gastro-esophageal reflux disease without esophagitis; F17.210 Nicotine dependence, cigarettes, uncomplicated; Z79.01 Long term (current) use of anticoagulants; Z79.899 Other long term (current) drug therapy; Z90.49 Acquired absence of other specified parts of digestive tract; Z87.19 Personal history of other diseases of the digestive system
CPT/HCPCS: 36415; 80053; 85025; 93005; 93970; 99285

== ENCOUNTER 2021-12-25 09:53 | Emergency (ER) | payer MEDICAID ==
[2021-12-25 10:11] VITALS: BP 178/110; PULSE 111; RESP 18; TEMP 98.6
--- NOTE | 2021-12-25 10:55 | US ---
EXAMINATION TYPE: US scrotum with doppler. Grayscale and color Doppler Duplex imaging performed of t he scrotum. DATE OF EXAM: 12/25/2021 COMPARISON: NONE CLINICAL HISTORY: swelling. Left testicular pain and swelling x couple days EXAM MEASUREMENTS: TESTICLES: Right Testicle: 4.5 x 2.6 x 3.0 cm Left Testicle: 4.7 x 2.9 x 2.9 cm EPIDIDYMIS HEAD: Right Epididymis: 1.5 cm Left Epididymis: 1.9 cm Doppler performed to assess for testicular vascularity; bilateral color flow and waveforms are seen. There is no evidence of testicular torsion. Presence of hydroceles: no Presence of varicoceles: prominent vessels posterior to left testicle, scrotal swelling is noted Testicular echotexture is homogenous and symmetric with exception of small hypoechoic area adjacent t o the vessels within the left testis measuring only 3 to 4 mm of questionable clinical significance. IMPRESSION: Findings suggest varicocele on the left, no evident testicular torsion. Indeterminate hyp oechoic focus within the left testis, follow-up should be performed to assess for stability, question able clinical significance
[2021-12-25 11:22] LABS: Appearance,Urine Clear (Clear); Bacteria,Urine Rare /hpf; Bilirubin,Urine Negative (Negative); Blood,Urine Negative (Negative); Color,Urine Colorless; Glucose,Urine (UA) Negative (Negative); Ketones,Urine Negative (Negative); Leukocyte Esterase,Urine Large (Negative); Nitrite,Urine Negative (Negative); Protein,Urine Negative (Negative); RBC,Urine 3 /hpf (0-5); Specific Gravity,Urine 1.003 (1.001-1.035); Urobilinogen,Urine <2.0 mg/dL (<2.0); WBC,Urine 34 /hpf (0-5)
[2021-12-25] MEDS ORDERED: IBUPROFEN 600 MG STARTER PACK 4 TAB BTL PO STA (12:24)
[2021-12-25] MEDS ORDERED: ACET/COD 300 MG/30 MG STARTER PACK 6 TAB BTL PO STA (12:24)
--- NOTE | 2021-12-25 12:27 | ED ---
General Adult HPI - General Chief complaint: Urogenital Stated complaint: groin pain Time Seen by Provider: 12/25/21 12:17 Source: patient, RN notes reviewed Mode of arrival: ambulatory Limitations: no limitations - History of Present Illness Initial comments: Patient is a pleasant 51-year-old male presenting to the emergency department with concerns with left testicle discomfort. Onset of symptoms was a couple days ago. Patient feels a little bit swollen. No history of similar symptoms previously. No trauma. Patient has noticed a mild dark discoloration to the urine. Patient is an eloquent secondary to history of one clot in the leg. Patient denies any possibility of STDs and does not want testing. - Related Data Home Medications Medication Instructions Recorded Confirmed cloNIDine HCL [Catapres] 0.2 mg PO TID 03/10/16 11/26/21 Metoprolol Succinate [Toprol XL] 100 mg PO DAILY 06/30/18 11/26/21 Acetaminophen Tab [Tylenol] 650 mg PO Q6H PRN 11/26/21 11/26/21 Apixaban [Eliquis] 5 mg PO BID 11/26/21 11/26/21 Folic Acid 1 mg PO DAILY 11/26/21 11/26/21 Gabapentin 600 mg PO TID 11/26/21 11/26/21 LORazepam [Ativan] 0.25 mg PO DAILY 11/26/21 11/26/21 LORazepam [Ativan] 0.5 mg PO HS 11/26/21 11/26/21 Mirtazapine [Remeron] 45 mg PO HS 11/26/21 11/26/21 Multivitamin [Multivitamins Adult 1 tab PO DAILY 11/26/21 11/26/21 Gummies] Omeprazole 20 mg PO BID 11/26/21 11/26/21 Polyethylene Glycol 3350 [Miralax] 17 gm PO DAILY PRN 11/26/21 11/26/21 Potassium Chloride ER [K-Dur 20] 40 meq PO DAILY 11/26/21 11/26/21 Thiamine [Vitamin B-1] 100 mg PO DAILY 11/26/21 11/26/21 Previous Rx's Medication Instructions Recorded Nicotine 14Mg/24Hr Patch [Habitrol] 1 patch TRANSDERM DAILY 30 Days 11/28/21 #30 patch lamoTRIgine [LaMICtal] 25 mg PO BID 30 Days #60 tab 11/28/21 Cephalexin [Keflex] 500 mg PO QID #40 cap 12/25/21 Allergies Allergy/AdvReac Type Severity Reaction Status Date / Time No Known Allergies Allergy Verified 12/25/21 10:10 Review of Systems ROS Statement: Those systems with pertinent positive or pertinent negative responses have been documented in the HPI. ROS Other: All systems not noted in ROS Statement are negative. Constitutional: Denies: fever Eyes: Denies: eye pain ENT: Denies: ear pain Respiratory: Denies: cough Cardiovascular: Denies: chest pain Endocrine: Denies: fatigue Gastrointestinal: Denies: abdominal pain, vomiting Genitourinary: Reports: as per HPI, testicular pain Musculoskeletal: Denies: back pain Skin: Denies: rash Past Medical History Past Medical History: GERD/Reflux, Hyperlipidemia, Hypertension Additional Past Medical History / Comment(s): Hx of pancreatitis. TONGUE LESION, encephalopathy. History of Any Multi-Drug Resistant Organisms: None Reported Past Surgical History: Cholecystectomy, Hernia Repair Additional Past Surgical History / Comment(s): SX ON NOSE TEEN FOR FX NOSE. COLONOSCOPY/EGD Past Anesthesia/Blood Transfusion Reactions: No Reported Reaction Past Psychological History: Anxiety, Bipolar, Depression Smoking Status: Current every day smoker Past Alcohol Use History: Abuse, Daily Past Drug Use History: None Reported - Past Family History Mother Family Medical History: No Reported History Additional Family Medical History / Comment(s): Mother had deoression. She in her sleep recently. Father Family Medical History: Pneumonia General Exam Limitations: no limitations General appearance: alert, in no apparent distress Head exam: Present: normocephalic Eye exam: Present: normal appearance Respiratory exam: Present: normal lung sounds bilaterally Cardiovascular Exam: Present: regular rate, normal rhythm GI/Abdominal exam: Present: soft. Absent: tenderness exam: Present: other (Testicle with mild swelling and mild to moderate tenderness.) Neurological exam: Present: alert, normal gait Psychiatric exam: Present: normal affect, normal mood Skin exam: Present: normal color Course Vital Signs 12/25/21 10:08 Temperature 98.6 F Pulse Rate 111 H Respiratory 18 Rate Blood Pressure 178/110 O2 Sat by Pulse 98 Oximetry Medical Decision Making - Lab Data Lab Results 12/25/21 Range/Units 10:16 Urine Color Colorless Urine Appearance Clear (Clear) Urine pH 5.0 (5.0-8.0) Ur Specific [place] 1.003 (1.001-1.035) Urine Protein Negative (Negative) Urine Glucose (UA) Negative (Negative) Urine Ketones Negative (Negative) Urine Blood Negative (Negative) Urine Nitrite Negative (Negative) Urine Bilirubin Negative (Negative) Urine Urobilinogen <2.0 (<2.0) mg/dL Ur Leukocyte Esterase Large H (Negative) Urine RBC 3 (0-5) /hpf Urine WBC 34 H (0-5) /hpf Urine Bacteria Rare H (None) /hpf - Radiology Data Radiology results: report reviewed (Ultrasound showsSeal. Nonspecific fluid left testicle) Disposition Clinical Impression: Varicocele Disposition: HOME SELF-CARE Condition: Stable Instructions (If sedation given, give patient instructions): Urinary Tract Infection in Men (ED) Additional Instructions: Prescription for antibiotics has been sent to pharmacy. Please follow-up with primary care physician in the next day or 2 for recheck. Follow-up with urology, number provided. Return for increased pain, swelling, redness, fevers, worsening symptoms or other concerns. Prescriptions: Cephalexin [Keflex] 500 mg PO QID #40 cap Is patient prescribed a controlled substance at d/c from ED?: No Referrals: Jabari Sorto MD [Primary Care Provider] - 1-2 days Lefty Atkins MD [STAFF PHYSICIAN] - 1-2 days Time of Disposition: 12:26
== END 2021-12-25 12:37 | disposition home or self-care (01) ==
LOC: EC 09:53
DX: I86.1 Scrotal varices (principal); E78.5 Hyperlipidemia, unspecified; F17.200 Nicotine dependence, unspecified, uncomplicated; F41.9 Anxiety disorder, unspecified; F31.9 Bipolar disorder, unspecified; K21.9 Gastro-esophageal reflux disease without esophagitis; I10 Essential (primary) hypertension; Z79.899 Other long term (current) drug therapy; F10.10 Alcohol abuse, uncomplicated
CPT/HCPCS: 76870; 81001; 87086; 93975; 99284

== ENCOUNTER → 2022-05-13 | Outpatient (CLI) | payer MEDICAID ==
--- NOTE | 2022-05-13 09:33 | CA ---
Transthoracic Echo Report Name: Pan Maravilla Age: 51 Gender: M : 1970 Exam Date: 05/13/2022 09:04 Exam Location: [facility] Ht (in): 77 Wt (lb): 284 Ordering Physician: Jabari Sorto MD Attending/Referring Phys: Oil Developer Stacia Conklin RDCS Procedure CPT: Indications: I50.9 CHF Cardiac Hx: Technical Quality: Fair Contrast 1: Total Dose (mL): Contrast 2: Total Dose (mL): MEASUREMENTS (Male / Female) Normal Values 2D ECHO LV Diastolic Diameter PLAX 5.6 cm 4.2 - 5.9 / 3.9 - 5.3 cm LV Systolic Diameter PLAX 4.8 cm IVS Diastolic Thickness 1.4 cm 0.6 - 1.0 / 0.6 - 0.9 cm LVPW Diastolic Thickness 1.2 cm 0.6 - 1.0 / 0.6 - 0.9 cm LV Relative Wall Thickness 0.5 RV Internal Dim ED PLAX 3.4 cm LA Systolic Diameter LX 3.9 cm 3.0 - 4.0 / 2.7 - 3.8 cm LA Volume 56.3 cm??? 18 - 58 / 22 - 52 cm??? M-MODE Aortic Root Diameter MM 3.5 cm MV E Point Septal Separation 0.5 cm AV Cusp Separation MM 2.5 cm DOPPLER AV Peak Velocity 132.0 cm/s AV Peak Gradient 7.0 mmHg MV Area PHT 3.5 cm??? Mitral E Point Velocity 92.9 cm/s Mitral A Point Velocity 112.5 cm/s Mitral E to A Ratio 0.8 MV Deceleration Time 214.7 ms MV E' Velocity 5.8 cm/s Mitral E to MV E' Ratio 15.9 TR Peak Velocity 246.4 cm/s TR Peak Gradient 24.3 mmHg Right Ventricular Systolic Press 28.5 mmHg FINDINGS Left Ventricle Left ventricular ejection fraction is estimated at 60-65 %. Mildly increased septal wall thickness. Left ventricular cavity size normal. Right Ventricle Mild right ventricular dilatation. Right ventricular systolic pressure within normal limits. Right Atrium Normal right atrial size. Left Atrium Mildly increased left atrial area. No evidence for an atrial septal defect. Mitral Valve Structurally normal mitral valve. No mitral stenosis, regurgitation or prolapse. Aortic Valve Trileaflet aortic valve. No aortic valve stenosis or regurgitation. Tricuspid Valve Mild tricuspid regurgitation. Pulmonic Valve Structurally normal pulmonic valve. Pericardium Normal pericardium. No pericardial effusion. Aorta Normal size aortic root and proximal ascending aorta. CONCLUSIONS Left ventricular ejection fraction 60-65% Mildly increased left ventricular wall thickness Mild tricuspid regurgitation No pericardial effusion Previewed by: Dr. Antelmo Morejon DO (Electronically Signed) Final Date: 13 May 2022 09:32
== END | disposition home or self-care (01) ==
LOC: RADECHMAIN 08:43
PROVIDERS: ATTEND Family Medicine
DX: I07.1 Rheumatic tricuspid insufficiency (principal); I50.9 Heart failure, unspecified
CPT/HCPCS: 93306

== ENCOUNTER → 2022-05-27 | Outpatient (CLI) | payer MEDICAID ==
[2022-05-27 12:56] LABS: HCT 43.9 % (39.6-50.0); HGB 14.3 g/dL (13.0-17.0); MCH 27.6 pg (27.0-32.0); MCHC 32.6 g/dL (32.0-37.0); MCV 84.6 fL (80.0-97.0); Mean Platelet Volume 12.6 fL (9.5-12.2); NRBC Per 100 WBC 0 /100 WBCS (0.0-0.0); Platelet Count 237 X 10*3/uL (140-440); RBC 5.19 X 10*6/uL (4.40-5.60); RDW 14.1 % (11.5-14.5); WBC 8.25 X 10*3/uL (4.50-10.00)
[2022-05-27 13:30] LABS: Albumin/Globulin Ratio 1.72 (1.60-3.17); Anion Gap 13.8 mmol/L (10.00-18.00); BUN/Creat Ratio 13.64 Ratio (12.00-20.00); Calcium 9.7 mg/dL (8.7-10.3); Carbon Dioxide 24.2 mmol/L (20.0-27.5); Globulin 2.9 g/dL (1.6-3.3); HDL Cholesterol 38.6 mg/dL (40.00-60.00); Non-African American GFR(CKD) 76.8 (60.0-200.0); Potassium 3.9 mmol/L (3.5-5.5); Prostate Specific Antigen 0.5 ng/mL (0.00-3.50); Total Bilirubin 0.2 mg/dL (0.30-1.20); Total Protein 7.9 g/dL (6.2-8.2)
[2022-05-27 13:43] LABS: Chol/HDL Ratio 5.7 Ratio; LDL Cholesterol,Direct Reflex 93.8 mg/dL (0.00-129.00)
== END | disposition home or self-care (01) ==
LOC: LABWHC1 07:16
PROVIDERS: ATTEND Family Medicine
DX: I10 Essential (primary) hypertension (principal); E78.5 Hyperlipidemia, unspecified; F31.9 Bipolar disorder, unspecified; Z79.899 Other long term (current) drug therapy
CPT/HCPCS: 36415; 80053; 80061; 82607; 82746; 83036; 83721; 83880; 84153; 84443; 85027

== ENCOUNTER → 2022-12-10 | Outpatient (CLI) | payer MEDICAID ==
[2022-12-10 20:45] LABS: Basophils # (A) 0.09 X 10*3/uL (0.00-0.10); Basophils % (A) 0.9 %; Eosinophils # (A) 0.22 X 10*3/uL (0.04-0.35); Eosinophils % (A) 2.3 %; HCT 43.1 % (39.6-50.0); HGB 13.8 g/dL (13.0-17.0); Immature Grans, Automated 0.3 %; Lymphocytes # (A) 2.12 X 10*3/uL (0.90-5.00); MCH 27.2 pg (27.0-32.0); Mean Platelet Volume 12.5 fL (9.5-12.2); Monocytes # (A) 0.75 X 10*3/uL (0.20-1.00); Monocytes % (A) 7.8 %; NRBC Per 100 WBC 0 /100 WBCS (0.0-0.0); Neutrophils # (A) 6.42 X 10*3/uL (1.80-7.70); Neutrophils % (A) 66.7 %; Platelet Count 231 X 10*3/uL (140-440); RBC 5.07 X 10*6/uL (4.40-5.60); RDW 14.9 % (11.5-14.5); WBC 9.63 X 10*3/uL (4.50-10.00)
[2022-12-10 21:02] LABS: ALT 26 U/L (10-49); AST 24 U/L (14-35); African American GFR (CKD) 115.5 (60.0-200.0); Albumin 4.6 g/dL (3.8-4.9); Albumin/Globulin Ratio 2.04 (1.60-3.17); Alkaline Phosphatase 126 U/L (41-126); BUN/Creat Ratio 12.29 Ratio (12.00-20.00); Blood Urea Nitrogen 10.4 mg/dL (9.0-27.0); Calcium 9.3 mg/dL (8.7-10.3); Carbon Dioxide 21.8 mmol/L (20.0-27.5); Chloride 101 mmol/L (96-109); Chol/HDL Ratio 3.83 Ratio; Globulin 2.3 g/dL (1.6-3.3); Glucose 122 mg/dL (70-110); LDL Cholesterol,Calculated 30.2 mg/dL (0.0-131.0); Non-African American GFR(CKD) 99.7 (60.0-200.0); Potassium 4.2 mmol/L (3.5-5.5); Sodium 139 mmol/L (135-145); Total Bilirubin <0.15 mg/dL (0.30-1.20); Total Protein 6.9 g/dL (6.2-8.2)
== END | disposition home or self-care (01) ==
LOC: LABWHC1 14:08
PROVIDERS: ATTEND Family Medicine
DX: Z00.00 Encounter for general adult medical examination without abnormal findings (principal); Z79.899 Other long term (current) drug therapy
CPT/HCPCS: 36415; 80053; 80061; 83036; 84153; 84403; 85025

== ENCOUNTER → 2023-02-03 | Outpatient (CLI) | payer MEDICAID ==
--- NOTE | 2023-02-03 12:32 | MR ---
EXAMINATION TYPE: MR lumbar spine wo con DATE OF EXAM: 02/03/2023 COMPARISON: MRI lumbar spine 05/29/2021, lumbar spine radiographs 01/28/2023, CT lumbar spine 0 HISTORY: Low back pain TECHNIQUE: Multiplanar, multisequence images of the lumbar spine were acquired without IV contrast. FINDINGS: Lumbar segments are intact. No paraspinal masses are identified. Conus medullaris has a normal appe arance. Disc desiccation is present at L4-L5. Type I Modic changes involving the inferior endplate of L4. L1-L2: No herniation, protrusion or disc bulging. Bilateral facet arthropathy. No canal stenosis is p resent. Foramina are patent bilaterally. L2-L3: No herniation, protrusion or disc bulging. Bilateral facet arthropathy. No canal stenosis is p resent. Foramina are patent bilaterally. L3-L4: No herniation, protrusion or disc bulging. Bilateral facet arthropathy. Mild central canal jarvis nosis. Foramina are patent bilaterally. L4-L5: Disc desiccation is present. Broad-based disc bulge with ligamentum flavum buckling, facet art hropathy contributing to mild to moderate central canal stenosis. The neural foramina are patent bila terally. L5-S1: Broad-based disc bulge with minimal effacement of the anterior thecal sac. Facet arthropathy. Foramina are patent bilaterally. IMPRESSION: 1. No evidence for disc herniation. 2. Mild multilevel degenerative disease and facet arthropathy. This is most pronounced at L4-L5 with broad-based disc bulge, ligament flavum buckling and facet arthropathy contributing to mild to modera te central canal stenosis.
== END | disposition home or self-care (01) ==
LOC: RADMRIMAIN 10:59
PROVIDERS: ATTEND Nurse Practitioner Family
DX: M51.16 Intervertebral disc disorders with radiculopathy, lumbar region (principal); M47.26 Other spondylosis with radiculopathy, lumbar region; M48.061 Spinal stenosis, lumbar region without neurogenic claudication
CPT/HCPCS: 72148

== ENCOUNTER → 2023-02-10 | Outpatient (CLI) | payer MEDICAID ==
[2023-02-10 13:36] VITALS: BP 139/87; PULSE 94; RESP 18
--- NOTE | 2023-02-10 14:35 | P.PAINPG ---
Objective - Vital Signs Vital signs: Intake & Output 02/09/23 02/10/23 02/10/23 18:59 06:59 18:59 Weight 129.727 kg PQRS Measure Charge Sheet Comment: HISTORY OF PRESENT ILLNESS: 52 yr old male as a referral from [facility] presents today w severe and chronic LBP secondary to DDD, spondylosis and facet arthropathy for evaluation. Pt states pain level is provoked at 10 /10 in intensity, constant, localized in the mid to lower lumbar spine, burning in character w shooting pain towards the RLE. Pain is provoked by weight bearing. Pain is alleviated by PT x 20 wks in 2021, medications (Oxycodone 20mg #60, Neurontin 300mg # 90), repositioning and rest. Oswestry axial pain score at 30. PMH: OA, GERD, Hyperlipidemia, HTN, Hx of Pancreatitis, Hx of Encephalopathy, MDD/ Anxiety/ Bipolar Disorder PSH: Cholecystectomy, Hernia Repair, EGD/ Colonoscopy SH: Daily tobacco use. Daily ETOH abuse. No illicit drug use. FH: Fa- Pneumonia, Mo- MDD. All: See list Meds: See list REVIEW OF ORGAN SYSTEMS: CONSTITUTIONAL: No fevers or chills. No recent weight loss. NEUROLOGICAL: + numbness and tingling along the distal extremities. No seizure disorders or headaches. MUSCULOSKELETAL: + pain PSYCHIATRIC: Denies current depression or suicidal thoughts. Physical Examinations : Constitutional : Cooperative , not in acute distress . Neurologic : Cranial nerve II to XII intact. No focal neur ological deficits. Psychiatric : alert & oriented x 3. Matching mood & appropriate affect. Judgment & insight intact. Musculoskeletal : Cervical Spine Motor strength in the deltoid and biceps: Normal right side. Normal Left side Motor strength biceps and the wrist extensors: Normal right side . Normal left side Motor strength in the triceps muscle: Normal right side. Normal left side Deep tendon reflexes: Normal at the biceps. Normal at Brachioradialis. Normal at triceps Vertebral body tenderness to deep palp ation over Cervical facet loading test: positive bilaterally Spurling test: positive bilaterally Neck distraction test: positive bilaterally Pam sign: positive bilaterally Lumbar spine Motor strength lower extremities ,thigh and legs 5/5 Right side , 5/5 Left side Deep tendon reflexes : Normal Knee Jerk. Normal Ankle Jerk Vertebral body tenderness over L4 Tapia Test positive Lumbar facet Loading Test: positive Right / positive Left Range of motion of the lumbar spine Flexion 30 degrees, extension 10 degrees Straight Leg Raise test: Left/ Right positive at 35 degrees Reagan test: positive right / positive left. Severe tenderness over the Sacroiliac joint on the Right / Left sides Gaenslen test: positive bilaterally Seated flexion test: positive bilaterally. Sacral spine : Severe tenderness over the Sacroiliac joint: right side / left side Range of motion: Flexion of the lumbar spine <60 degrees Range of motion: Extension of the lumbar spine <20 degrees Gaenslen's Test positive Shadi's Test positive Reagan test: positive right side / left side Thigh Thrust Test Sacral Thrust Test Imaging: MRI noncontrast of the lumbar spine from 02/03/23 reviewed Assessment/ Plan : Lumbar DDD Recommendation of MADAY L4-L5 #1. May need a series of injections for optimal pain relief. Risks, benefits of procedure discussed and patient verbalized understanding. Admits to aspirin or anti- coagulant use or medical history of diabetes. Protocol for discontinuation/ continuation of medications phoenix procedure discussed. Minimal anesthesia provided, if clinically indicated, consisting of Versed and Fentanyl. All questions answered. I have spent greater than 30 minutes on patient care today. Dr Middleton was available by phone for the evaluation of this patient. The time was used to review the medical records including relevant urine studies and Prescription history (MAPs), review of the available imaging, evaluation and examination of the patient, coordination of care with the medical staff and if applicable referring physicians, as well as creation of the medical record PQRS Narrative: Smoking Status Current every day smoker Hx Alcohol Use (MH) No Home Medications: Ambulatory Orders cloNIDine HCL [Catapres] 0.2 mg PO TID 03/10/16 Metoprolol Succinate [Toprol XL] 100 mg PO DAILY 06/30/18 Acetaminophen Tab [Tylenol] 650 mg PO Q6H PRN 11/26/21 Apixaban [Eliquis] 5 mg PO BID 11/26/21 Folic Acid 1 mg PO DAILY 11/26/21 Gabapentin 600 mg PO TID 11/26/21 LORazepam [Ativan] 0.25 mg PO DAILY 11/26/21 LORazepam [Ativan] 0.5 mg PO HS 11/26/21 Mirtazapine [Remeron] 45 mg PO HS 11/26/21 Multivitamin [Multivitamins Adult Gummies] 1 tab PO DAILY 11/26/21 Omeprazole 20 mg PO BID 11/26/21 Potassium Chloride ER [K-Dur 20] 40 meq PO DAILY 11/26/21 Thiamine [Vitamin B-1] 100 mg PO DAILY 11/26/21 polyethylene glycoL 3350 [Miralax] 17 gm PO DAILY PRN 11/26/21 Nicotine 14Mg/24Hr Patch [Habitrol] 1 patch TRANSDERM DAILY 30 Days #30 patch 11/28/21 lamoTRIgine [LaMICtal] 25 mg PO BID 30 Days #60 tab 11/28/21 Cephalexin [Keflex] 500 mg PO QID #40 cap 12/25/21 Controlled Substance Measures - Controlled Substance Measures Is patient prescribed a controlled substance at discharge?: No
== END ==
LOC: PNWHC3 12:41
PROVIDERS: ATTEND Specialist
DX: M51.36 Other intervertebral disc degeneration, lumbar region (principal); M47.816 Spondylosis without myelopathy or radiculopathy, lumbar region; M19.90 Unspecified osteoarthritis, unspecified site; K21.9 Gastro-esophageal reflux disease without esophagitis; G89.29 Other chronic pain; E78.5 Hyperlipidemia, unspecified; F31.9 Bipolar disorder, unspecified; F17.200 Nicotine dependence, unspecified, uncomplicated; I10 Essential (primary) hypertension; Z98.890 Other specified postprocedural states
CPT/HCPCS: 99211

== ENCOUNTER 2023-02-11 17:07 | Emergency (ER) | payer OTHER, MEDICAID ==
[2023-02-11 17:11] VITALS: TEMP 98.6
[2023-02-11] MEDS ORDERED: LIDOCAINE 5% PATCH TOPICAL STA (17:46)
[2023-02-11] MEDS ORDERED: ACETAMINOPHEN TAB 325 MG TAB PO STA (17:46)
[2023-02-11] MEDS ORDERED: KETOROLAC 15 MG/ML 1 ML VIAL IM STA (17:49)
--- NOTE | 2023-02-11 17:51 | ED ---
General Adult HPI - General Chief complaint: Back Pain/Injury Stated complaint: Back Pain Time Seen by Provider: 02/11/23 17:16 Source: patient, RN notes reviewed Mode of arrival: ambulatory Limitations: no limitations - History of Present Illness Initial comments: 52-year-old male presents to the emergency department chief complaint of neck pain. 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 The pain is nonradiating. He presents the pain is aching. He states that he has a history of chronic low back pain. He recently had an MRI and he follows with pain management. He states that his not going to work today and has a ride home. He denies urinary retention, bladder, bowel dysfunction, saddle anesthesia, fevers, chills. - Related Data Home Medications Medication Instructions Recorded Confirmed cloNIDine HCL [Catapres] 0.2 mg PO TID 03/10/16 02/10/23 Metoprolol Succinate [Toprol XL] 100 mg PO DAILY 06/30/18 02/10/23 Acetaminophen Tab [Tylenol] 650 mg PO Q6H PRN 11/26/21 02/10/23 Apixaban [Eliquis] 5 mg PO BID 11/26/21 02/10/23 Folic Acid 1 mg PO DAILY 11/26/21 02/10/23 Gabapentin 600 mg PO TID 11/26/21 02/10/23 LORazepam [Ativan] 0.25 mg PO DAILY 11/26/21 02/10/23 LORazepam [Ativan] 0.5 mg PO HS 11/26/21 02/10/23 Mirtazapine [Remeron] 45 mg PO HS 11/26/21 02/10/23 Multivitamin [Multivitamins Adult 1 tab PO DAILY 11/26/21 02/10/23 Gummies] Omeprazole 20 mg PO BID 11/26/21 02/10/23 Potassium Chloride ER [K-Dur 20] 40 meq PO DAILY 11/26/21 02/10/23 Thiamine [Vitamin B-1] 100 mg PO DAILY 11/26/21 02/10/23 polyethylene glycoL 3350 [Miralax] 17 gm PO DAILY PRN 11/26/21 02/10/23 Previous Rx's Medication Instructions Recorded Nicotine 14Mg/24Hr Patch [Habitrol] 1 patch TRANSDERM DAILY 30 Days 11/28/21 #30 patch lamoTRIgine [LaMICtal] 25 mg PO BID 30 Days #60 tab 11/28/21 Cephalexin [Keflex] 500 mg PO QID #40 cap 12/25/21 Lidocaine 5% Patch [Lidoderm 5% 1 patch TOPICAL DAILY #30 patch 02/11/23 Patch] Allergies Allergy/AdvReac Type Severity Reaction Status Date / Time No Known Allergies Allergy Verified 02/11/23 17:10 Review of Systems ROS Statement: Those systems with pertinent positive or pertinent negative responses have been documented in the HPI. ROS Other: All systems not noted in ROS Statement are negative. Past Medical History Past Medical History: GERD/Reflux, Hyperlipidemia, Hypertension Additional Past Medical History / Comment(s): Hx of pancreatitis. TONGUE LESION, encephalopathy. History of Any Multi-Drug Resistant Organisms: None Reported Past Surgical History: Cholecystectomy, Hernia Repair Additional Past Surgical History / Comment(s): SX ON NOSE TEEN FOR FX NOSE. COLONOSCOPY/EGD Past Anesthesia/Blood Transfusion Reactions: No Reported Reaction Past Psychological History: Anxiety, Bipolar, Depression Smoking Status: Current every day smoker Past Alcohol Use History: None Reported Past Drug Use History: None Reported - Past Family History Mother Family Medical History: No Reported History Additional Family Medical History / Comment(s): Mother had deoression. She in her sleep recently. Father Family Medical History: Pneumonia General Exam Limitations: no limitations General appearance: alert, in no apparent distress Head exam: Present: atraumatic, normocephalic, normal inspection Eye exam: Present: normal appearance ENT exam: Present: normal exam, mucous membranes moist Neck exam: Present: normal inspection. Absent: tenderness, meningismus, lymphadenopathy Respiratory exam: Present: normal lung sounds bilaterally. Absent: respiratory distress, wheezes, rales, rhonchi, stridor Cardiovascular Exam: Present: regular rate, normal rhythm, normal heart sounds. Absent: systolic murmur, diastolic murmur, rubs, gallop, clicks GI/Abdominal exam: Present: soft, normal bowel sounds. Absent: distended, tenderness, guarding, rebound, rigid Extremities exam: Present: normal inspection, full ROM, normal capillary refill. Absent: tenderness, pedal edema, joint swelling, calf tenderness Back exam: Present: tenderness (Low lumbar). Absent: CVA tenderness (R), CVA tenderness (L), muscle spasm Neurological exam: Present: alert, oriented X3 Psychiatric exam: Present: normal affect, normal mood Skin exam: Present: warm, dry, intact, normal color. Absent: rash Course Vital Signs 02/11/23 02/11/23 17:08 19:42 Temperature 98.6 F Pulse Rate 87 89 Respiratory 20 18 Rate Blood Pressure 153/89 137/92 O2 Sat by Pulse 99 95 Oximetry Medical Decision Making - Medical Decision Making Was pt. sent in by a medical professional or institution (, PA, ASSURANCE AUDITOR, urgent care, hospital, or alf...) When possible be specific @ -No Did you speak to anyone other than the patient for history (EMS, parent, family, police, friend...)? What history was obtained from this source @ -No Did you review nursing and triage notes (agree or disagree)? Why? @ -I reviewed and agree with nursing and triage notes Were old charts reviewed (outside hosp., previous admission, EMS record, old EKG, old radiological studies, urgent care reports/EKG's, alf records)? Report findings @ -MRI was reviewed Differential Diagnosis (chest pain, altered mental status, abdominal pain women, abdominal pain men, vaginal bleeding, weakness, fever, dyspnea, syncope, headache, dizziness, GI bleed, back pain, seizure, CVA, palpatations, mental health, musculoskeletal)? @ -Differential Back Pain: Strain, zoster, cauda equina syndrome, epidural abscess, vertebral osteom yelitis, discitis, fracture, subluxation, disc herniation, DJD, spinal stenosis, dissection, AAA, pancreatitis, peptic ulcer disease, pyelonephritis, kidney stone, this is not meant to be an all-inclusive list. EKG interpreted by me (3pts min.). @ -None X-rays interpreted by me (1pt min.). @ -None done CT interpreted by me (1pt min.). @ -None done U/S interpreted by me (1pt. min.). @ -None done What testing was considered but not performed or refused? (CT, X-rays, U/S, labs)? Why? @ -X-ray was considered. Patient has without any new trauma and had a recent MRI What meds were considered but not given or refused? Why? @ -None Did you discuss the management of the patient with other professionals (professionals i.e. DrЕлена, PA, ASSURANCE AUDITOR, lab, RT, psych nurse, social media campaign manager, internet designer, teacher, hospital chief financial officer, pillowcase cleaner)? Give summary @ -No Was smoking cessation discussed for >3mins.? @ -No Was critical care preformed (if so, how long)? @ -No Were there social determinants of health that impacted care today? How? (Homelessness, low income, unemployed, alcoholism, drug addiction, transportation, low edu. Level, literacy, decrease access to med. care, usp, rehab)? @ -No Was there de-escalation of care discussed even if they declined (Discuss DNR or withdrawal of care, Hospice)? DNR status @ -No What co-morbidities impacted this encounter? (DM, HTN, Smoking, COPD, CAD, Cancer, CVA, ARF, Chemo, Hep., AIDS, mental health diagnosis, sleep apnea, morbid obesity)? @ -None Was patient admitted / discharged? Hospital course, mention meds given and route, prescriptions, significant lab abnormalities, going to OR and other pertinent info. @ -Discharged. Patient presented to the emergency department with chief complaint of low back pain. 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 He has a history of chronic low back pain and has recently undergone an MRI. He takes [place] at home for pain. Patient was given pain management for the ED. Prescription for Lidocaine patches sent to the patient's pharmacy. Advised to take his home med ications as needed and follow up with pain management. Patient is not having any red flag symptoms at this time. Patient stable at time of discharge. case discussed with my attending, Dr. Jane. Undiagnosed new problem with uncertain prognosis? @ -No Drug Therapy requiring intensive monitoring for toxicity (Heparin, Nitro, Insulin, Cardizem)? @ -No Were any procedures done? @ -No Diagnosis/symptom? @ -mechanical back pain Acute, or Chronic, or Acute on Chronic? @ -chronic Uncomplicated (without systemic symptoms) or Complicated (systemic symptoms)? @ -uncomplicated Side effects of treatment? @ -No Exacerbation, Progression, or Severe Exacerbation? @ -No Poses a threat to life or bodily function? How? (Chest pain, [place], [place], pneumonia, PE, COPD, DKA, ARF, appy, cholecystitis, CVA, Diverticulitis, Homicidal, Suicidal, threat to staff... and all critical care pts) @ -No Disposition Clinical Impression: Mechanical back pain Disposition: HOME SELF-CARE Condition: Stable Instructions (If sedation given, give patient instructions): Acute Low Back Pain (ED) Additional Instructions: Please follow-up with your pain specialist and orthopedist. Return to the emergency department for new or worsening symptoms. Prescriptions: Lidocaine 5% Patch [Lidoderm 5% Patch] 1 patch TOPICAL DAILY #30 patch Is patient prescribed a controlled substance at d/c from ED?: No Referrals: Jabari Sorto MD [Primary Care Provider] - 1-2 days Time of Disposition: 19:29
[2023-02-11] MEDS ORDERED: HYDROmorphone 1 MG/ML 1 ML SYRINGE IM STA (18:21)
[2023-02-11 19:43] VITALS: BP 137/92; PULSE 89; RESP 18
== END 2023-02-11 19:43 | disposition home or self-care (01) ==
LOC: EC 17:07
DX: M54.50 Low back pain, unspecified (principal); I10 Essential (primary) hypertension; K21.9 Gastro-esophageal reflux disease without esophagitis; E78.5 Hyperlipidemia, unspecified; F31.9 Bipolar disorder, unspecified; F41.9 Anxiety disorder, unspecified; Z79.01 Long term (current) use of anticoagulants; F17.200 Nicotine dependence, unspecified, uncomplicated; Z79.899 Other long term (current) drug therapy; Z90.49 Acquired absence of other specified parts of digestive tract
CPT/HCPCS: 99283; 96372; J1170

== ENCOUNTER 2023-02-13 10:08 | Emergency (ER) | payer OTHER, MEDICAID ==
[2023-02-13 10:16] VITALS: RESP 18
[2023-02-13] MEDS ORDERED: HYDROmorphone 1 MG/ML 1 ML SYRINGE IM STA (10:51)
--- NOTE | 2023-02-13 10:53 | ED ---
General Adult HPI - General Chief complaint: Back Pain/Injury Stated complaint: Back Pain Time Seen by Provider: 02/13/23 10:30 Source: patient, RN notes reviewed, old records reviewed Mode of arrival: ambulatory Limitations: no limitations - History of Present Illness Initial comments: This a 52-year-old male presents emergency department stating that a few days ago work he was lifting something and hurt his lower back. Patient states he came to the emergency department time and had some pain medicine for relief he supposed to follow-up tomorrow with Dr. Contreras. Patient states he also had an MRI recently. Patient states he did not show any disc ruptures a lot of degenerative disc disease. Patient states he'll be following up with Dr. Sorto as well. Patient states none of the muscle relaxants helped him and he won't take Toradol because he has eliquis. Patient denies any numbness or weakness. Patient denies any difficulty urinating or having any urinary retention. Patient denies any radiation of pain down either leg. Patient denies any fever chills. Patient denies any new injury since he injured it a while ago at work - Related Data Home Medications Medication Instructions Recorded Confirmed cloNIDine HCL [Catapres] 0.2 mg PO TID 03/10/16 02/10/23 Metoprolol Succinate [Toprol XL] 100 mg PO DAILY 06/30/18 02/10/23 Acetaminophen Tab [Tylenol] 650 mg PO Q6H PRN 11/26/21 02/10/23 Apixaban [Eliquis] 5 mg PO BID 11/26/21 02/10/23 Folic Acid 1 mg PO DAILY 11/26/21 02/10/23 Gabapentin 600 mg PO TID 11/26/21 02/10/23 LORazepam [Ativan] 0.25 mg PO DAILY 11/26/21 02/10/23 LORazepam [Ativan] 0.5 mg PO HS 11/26/21 02/10/23 Mirtazapine [Remeron] 45 mg PO HS 11/26/21 02/10/23 Multivitamin [Multivitamins Adult 1 tab PO DAILY 11/26/21 02/10/23 Gummies] Omeprazole 20 mg PO BID 11/26/21 02/10/23 Potassium Chloride ER [K-Dur 20] 40 meq PO DAILY 11/26/21 02/10/23 Thiamine [Vitamin B-1] 100 mg PO DAILY 11/26/21 02/10/23 polyethylene glycoL 3350 [Miralax] 17 gm PO DAILY PRN 11/26/21 02/10/23 Previous Rx's Medication Instructions Recorded Nicotine 14Mg/24Hr Patch [Habitrol] 1 patch TRANSDERM DAILY 30 Days 11/28/21 #30 patch lamoTRIgine [LaMICtal] 25 mg PO BID 30 Days #60 tab 11/28/21 Cephalexin [Keflex] 500 mg PO QID #40 cap 12/25/21 Lidocaine 5% Patch [Lidoderm 5% 1 patch TOPICAL DAILY #30 patch 02/11/23 Patch] Allergies Allergy/AdvReac Type Severity Reaction Status Date / Time ketorolac [From Toradol] AdvReac Unknown Verified 02/13/23 10:32 Review of Systems ROS Statement: Those systems with pertinent positive or pertinent negative responses have been documented in the HPI. ROS Other: All systems not noted in ROS Statement are negative. Past Medical History Past Medical History: GERD/Reflux, Hyperlipidemia, Hypertension Additional Past Medical History / Comment(s): Hx of pancreatitis. TONGUE LESION, encephalopathy. History of Any Multi-Drug Resistant Organisms: None Reported Past Surgical History: Cholecystectomy, Hernia Repair Additional Past Surgical History / Comment(s): SX ON NOSE TEEN FOR FX NOSE. COLONOSCOPY/EGD Past Anesthesia/Blood Transfusion Reactions: No Reported Reaction Past Psychological History: Anxiety, Bipolar, Depression Smoking Status: Current every day smoker Past Alcohol Use History: None Reported Past Drug Use History: None Reported - Past Family History Mother Family Medical History: No Reported History Additional Family Medical History / Comment(s): Mother had deoression. She in her sleep recently. Father Family Medical History: Pneumonia General Exam - General Exam Comments Initial Comments: GENERAL: Patient is well-developed and well-nourished. Patient is nontoxic and well- hydrated and is in mild distress. ENT: Neck is soft and supple. No significant lymphadenopathy is noted. Oropharynx is clear. Moist mucous membranes. Neck has full range of motion without eliciting any pain. EYES: The sclera were anicteric and conjunctiva were pink and moist. Extraocular movements were intact and pupils were equal round and reactive to light. Eyelids were unremarkable. PULMONARY: Unlabored respirations. Good breath sounds bilaterally. No audible rales rhonchi or wheezing was noted. CARDIOVASCULAR: There is a regular rate and rhythm without any murmurs gallops or rubs. ABDOMEN: Soft and nontender with normal bowel sounds. No palpable organomegaly was noted. There is no palpable pulsatile mass. SKIN: Skin is clear with no lesions or rashes and otherwise unremarkable. NEUROLOGIC: Patient is alert and oriented x3. Cranial nerves II through XII are grossly intact. Motor and sensory are also intact. Normal speech, volume and content. Symmetrical smile. Straight leg test is negative bilaterally MUSCULOSKELETAL: Normal extremities with adequate strength and full range of motion. Patient has some lower back tenderness in the paraspinous muscles on palpation LYMPHATICS: No significant lymphadenopathy is noted PSYCHIATRIC: Normal psychiatric evaluation. Limitations: no limitations Course Vital Signs 02/13/23 10:14 Temperature 97.9 F Pulse Rate 87 Respiratory 18 Rate Blood Pressure 156/96 O2 Sat by Pulse 99 Oximetry Medical Decision Making - Medical Decision Making Was pt. sent in by a medical professional or institution (, PA, FINANCIAL SERVICE REPRESENTATIVE, urgent care, hospital, or jail...) When possible be specific @ -No Did you speak to anyone other than the patient for history (EMS, parent, family, police, friend...)? What history was obtained from this source @ -No Did you review nursing and triage notes (agree or disagree)? Why? @ -I reviewed and agree with nursing and triage notes Were old charts reviewed (outside hosp., previous admission, EMS record, old EKG, old radiological studies, urgent care reports/EKG's, jail records)? Report findings @ -I reviewed old MRI studies on this patient Differential Diagnosis (chest pain, altered mental status, abdominal pain women, abdominal pain men, vaginal bleeding, weakness, fever, dyspnea, syncope, headache, dizziness, GI bleed, back pain, seizure, CVA, palpatations, mental health, musculoskeletal)? @ -Differential Musculoskeletal Muscular strain, contusion, ligament sprain, fracture, arthritis, septic arthritis, bursitis, cellulitis, muscle spasm, nerve compression, DVT, arterial occlusion, herpes zoster, electrolyte abnormality, tumor.... This is not meant to be in all inclusive list EKG interpreted by me (3pts min.). @ -As above X-rays interpreted by me (1pt min.). @ -None done CT interpreted by me (1pt min.). @ -None done U/S interpreted by me (1pt. min.). @ -None done What testing was considered but not performed or refused? (CT, X-rays, U/S, labs)? Why? @ -None What meds were considered but not given or refused? Why? @ -None Did you discuss the management of the patient with other professionals (professionals i.e. DrЕлена, PA, FINANCIAL SERVICE REPRESENTATIVE, lab, RT, psych nurse, social media marketer, director child, teacher, railway patrol officer, wrapper caser)? Give summary @ -No Was smoking cessation discussed for >3mins.? @ -No Was critical care preformed (if so, how long)? @ -No Were there social determinants of health that impacted care today? How? (Homelessness, low income, unemployed, alcoholism, drug addiction, transpor tation, low edu. Level, literacy, decrease access to med. care, fdc, rehab)? @ -No Was there de-escalation of care discussed even if they declined (Discuss DNR or withdrawal of care, Hospice)? DNR status @ -No What co-morbidities impacted this encounter? (DM, HTN, Smoking, COPD, CAD, Cancer, CVA, ARF, Chemo, Hep., AIDS, mental health diagnosis, sleep apnea, morbid obesity)? @ -None Was patient admitted / discharged? Hospital course, mention meds given and route, prescriptions, significant lab abnormalities, going to OR and other pertinent info. @ -Was given a shot of Dilaudid and felt considerably better and wanted to be discharged home to follow-up tomorrow Undiagnosed new problem with uncertain prognosis? @ -No Drug Therapy requiring intensive monitoring for toxicity (Heparin, Nitro, Insulin, Cardizem)? @ -No Were any procedures done? @ -No Diagnosis/symptom? @ -Lumbar strain Acute, or Chronic, or Acute on Chronic? @ -Acute Uncomplicated (without systemic symptoms) or Complicated (systemic symptoms)? @ -default Side effects of treatment? @ -No Exacerbation, Progression, or Severe Exacerbation? @ -No Poses a threat to life or bodily function? How? (Chest pain, [place], [place], pneumonia, PE, COPD, DKA, ARF, appy, cholecystitis, CVA, Diverticulitis, Homicidal, Suicidal, threat to staff... and all critical care pts) @ -No Disposition Clinical Impression: Lumbar strain Disposition: HOME SELF-CARE Instructions (If sedation given, give patient instructions): Acute Low Back Pain (ED) Is patient prescribed a controlled substance at d/c from ED?: No Referrals: Jabari Sorto MD [Primary Care Provider] - 1-2 days Time of Disposition: 11:03
[2023-02-13] MEDS ORDERED: LIDOCAINE 5% PATCH TOPICAL ONE (11:15)
[2023-02-13 11:17] VITALS: BP 142/82; PULSE 82; TEMP 98.1
== END 2023-02-13 11:17 | disposition home or self-care (01) ==
LOC: EC 10:08
DX: S39.012A Strain of muscle, fascia and tendon of lower back, initial encounter (principal); I10 Essential (primary) hypertension; K21.9 Gastro-esophageal reflux disease without esophagitis; F41.9 Anxiety disorder, unspecified; F32.A Depression, unspecified; F17.200 Nicotine dependence, unspecified, uncomplicated; Z79.899 Other long term (current) drug therapy; Z88.3 Allergy status to other anti-infective agents; X50.0XXA Overexertion from strenuous movement or load, initial encounter; Y99.0 Civilian activity done for income or pay
CPT/HCPCS: 99284; 96372; J1170

== ENCOUNTER 2023-02-14 15:16 | Emergency (ER) | payer OTHER, MEDICAID ==
[2023-02-14 15:25] VITALS: TEMP 98.1
[2023-02-14 16:29] VITALS: RESP 16
[2023-02-14] MEDS ORDERED: ACETAMINOPHEN TAB 500 MG TAB PO STA (16:31)
[2023-02-14] MEDS ORDERED: LIDOCAINE 5% PATCH TOPICAL STA (16:31)
[2023-02-14] MEDS ORDERED: HYDROmorphone 1 MG/ML 1 ML SYRINGE IM STA (16:31)
[2023-02-14] MEDS ORDERED: traMADol 50 MG STARTER PACK 3 TAB BTL PO STA (16:32)
--- NOTE | 2023-02-14 16:33 | ED ---
Back Pain HPI - General Chief Complaint: Back Pain/Injury Stated Complaint: [facility] - back pain Time Seen by Provider: 02/14/23 16:04 Source: patient, RN notes reviewed, old records reviewed Limitations: no limitations - History of Present Illness Initial Comments: This is a 52-year-old male to the emergency department for evaluation. Patient does suffer from significant history of back pain with history of back injury and trauma. Patient is scheduled for pain management as well as possible surgical evaluation patient has no fevers. Patient's pain has been persistent since a work-related injury lifting some bags on Tuesday. Symptoms have persisted over the weekend unable to return to work today. No loss of bowel or bladder denying significant neurological complaint. Patient is able to ambulate MD Complaint: back pain, back injury -: days(s) Similar Symptoms Previously: Yes Place: work Radiation: buttocks Severity: moderate Severity scale (1-10): 7 Quality: stabbing, aching Consistency: constant Improves With: immobilization Worsens With: movement, sitting upright, walking Context: while lifting, turning/twisting Associated Symptoms: denies other symptoms - Related Data Home Medications Medication Instructions Recorded Confirmed cloNIDine HCL [Catapres] 0.2 mg PO TID 03/10/16 02/10/23 Metoprolol Succinate [Toprol XL] 100 mg PO DAILY 06/30/18 02/10/23 Acetaminophen Tab [Tylenol] 650 mg PO Q6H PRN 11/26/21 02/10/23 Apixaban [Eliquis] 5 mg PO BID 11/26/21 02/10/23 Folic Acid 1 mg PO DAILY 11/26/21 02/10/23 Gabapentin 600 mg PO TID 11/26/21 02/10/23 LORazepam [Ativan] 0.25 mg PO DAILY 11/26/21 02/10/23 LORazepam [Ativan] 0.5 mg PO HS 11/26/21 02/10/23 Mirtazapine [Remeron] 45 mg PO HS 11/26/21 02/10/23 Multivitamin [Multivitamins Adult 1 tab PO DAILY 11/26/21 02/10/23 Gummies] Omeprazole 20 mg PO BID 11/26/21 02/10/23 Potassium Chloride ER [K-Dur 20] 40 meq PO DAILY 11/26/21 02/10/23 Thiamine [Vitamin B-1] 100 mg PO DAILY 11/26/21 02/10/23 polyethylene glycoL 3350 [Miralax] 17 gm PO DAILY PRN 11/26/21 02/10/23 Previous Rx's Medication Instructions Recorded Nicotine 14Mg/24Hr Patch [Habitrol] 1 patch TRANSDERM DAILY 30 Days 11/28/21 #30 patch lamoTRIgine [LaMICtal] 25 mg PO BID 30 Days #60 tab 11/28/21 Cephalexin [Keflex] 500 mg PO QID #40 cap 12/25/21 Lidocaine 5% Patch [Lidoderm 5% 1 patch TOPICAL DAILY #30 patch 02/11/23 Patch] Allergies Allergy/AdvReac Type Severity Reaction Status Date / Time ketorolac [From Toradol] AdvReac Unknown Verified 02/14/23 15:25 Review of Systems ROS Statement: Those systems with pertinent positive or pertinent negative responses have been documented in the HPI. ROS Other: All systems not noted in ROS Statement are negative. Past Medical History Past Medical History: GERD/Reflux, Hyperlipidemia, Hypertension Additional Past Medical History / Comment(s): Hx of pancreatitis. TONGUE LESION, encephalopathy. History of Any Multi-Drug Resistant Organisms: None Reported Past Surgical History: Cholecystectomy, Hernia Repair Additional Past Surgical History / Comment(s): SX ON NOSE TEEN FOR FX NOSE. COLONOSCOPY/EGD Past Anesthesia/Blood Transfusion Reactions: No Reported Reaction Past Psychological History: Anxiety, Bipolar, Depression Smoking Status: Current every day smoker Past Alcohol Use History: None Reported Past Drug Use History: None Reported - Past Family History Mother Family Medical History: No Reported History Additional Family Medical History / Comment(s): Mother had deoression. She in her sleep recently. Father Family Medical History: Pneumonia General Exam Limitations: no limitations General appearance: alert, in no apparent distress Head exam: Present: atraumatic, normocephalic, normal inspection Eye exam: Present: normal appearance, PERRL, EOMI. Absent: scleral icterus, conjunctival injection, periorbital swelling ENT exam: Present: normal exam, mucous membranes moist Neck exam: Present: normal inspection. Absent: tenderness, meningismus, lymphadenopathy Respiratory exam: Present: normal lung sounds bilaterally. Absent: respiratory distress, wheezes, rales, rhonchi, stridor Cardiovascular Exam: Present: regular rate, normal rhythm, normal heart sounds. Absent: systolic murmur, diastolic murmur, rubs, gallop, clicks GI/Abdominal exam: Present: soft, normal bowel sounds. Absent: distended, tenderness, guarding, rebound, rigid Extremities exam: Present: normal inspection, tenderness, normal capillary refill. Absent: full ROM, pedal edema, joint swelling, calf tenderness Back exam: Present: normal inspection, tenderness, CVA tenderness (R), muscle spasm, paraspinal tenderness Neurological exam: Present: alert, oriented X3, CN II-XII intact Psychiatric exam: Present: normal affect, normal mood Skin exam: Present: warm, dry, intact, normal color. Absent: rash Course Vital Signs 02/14/23 02/14/23 02/14/23 15:21 16:28 16:51 Temperature 98.1 F Pulse Rate 90 68 86 Respiratory 18 16 16 Rate Blood Pressure 157/98 150/90 156/86 O2 Sat by Pulse 98 98 98 Oximetry - Reevaluation(s) Reevaluation #1: 02/14/23 16:48 Medical records reviewed Reevaluation #2: 02/14/23 16:48 Patient symptoms have been improved Patient is able to ambulate with no neurological complaint Reevaluation #3: 02/14/23 16:48 Patient informed results questions answered Reevaluation #4: 02/14/23 16:48 Was pt. sent in by a medical professional or institution? @ -no Did you speak to anyone other than the patient for history? @ -no Did you review nursing and triage notes? @ -agree Were old charts reviewed? @ -yes Differential Diagnosis? @ -prior EKG interpreted by me (3pts min.)? @ -no X-rays interpreted by me (1pt min.)? @ -no CT interpreted by me (1pt min.)? @ -no U/S interpreted by me (1pt. min.)? @ -no What testing was considered but not performed? (CT, X-rays, U/S, labs)? Why? @ -no What meds were considered but not given? Why? @ -no Did you discuss the management of the patient with other professionals? @ -no Did you reconcile home meds? @ -no Was smoking cessation discussed for >3mins.? @ -no Was critical care preformed (if so, how long)? @ -no Were there social determinants of health that impacted care today? How? (Homelessness, low income, unemployed, alcoholism, drug addiction, transportation, low edu. Level, literacy, decrease access to med. care, skilled nursing, rehab)? @ -no Was there de-escalation of care discussed even if they declined? (Discuss DNR or withdrawal of care, Hospice)? @ -no What co-morbidities impacted this encounter? (DM, HTN, Smoking, COPD, CAD, Cancer, CVA, Hep., AIDS, mental health diagnosis, sleep apnea, morbid obesity)? @ -none Was patient admitted / discharged? @ -52 male here for evaluation of back pain severe. Pain is well-controlled here in the ER. This is a work related injury. Patient has no significant traumatic injury strain with muscle energy. Pain is controlled can be discharged to continue follow-up with [facility] Discharged Undiagnosed new problem with uncertain prognosis? @ -no Drug Therapy requiring intensive monitoring for toxicity (Heparin, Nitro, Insulin, Cardizem)? @ -no Were any procedures done? @ -no Diagnosis/symptom? @ -Acute on chronic back pain Acute, or Chronic, or Acute on Chronic? @ -acute Uncomplicated (without systemic symptoms) or Complicated (systemic symptoms)? @ -complicated Side effects of treatment? @ -no Exacerbation, Progression, or Severe Exacerbation] @ -no Poses a threat to life or bodily function? @ -no Reevaluation #5: 02/14/23 16:48 Differential Back Pain: Strain, zoster, cauda equina syndrome, epidural abscess, vertebral osteomyelitis, discitis, fracture, subluxation, disc herniation, DJD, spinal stenosis, dissection, AAA, pancreatitis, peptic ulcer disease, pyelonephritis, kidney stone, this is not meant to be an all-inclusive list. Medical Decision Making - Medical Decision Making 52 male here for evaluation of back pain severe. Pain is well-controlled here in the ER. This is a work related injury. Patient has no significant traumatic injury strain with muscle energy. Pain is controlled can be discharged to continue follow-up with [facility] Disposition Clinical Impression: Mid back pain, Lumbar radiculopathy, Strain of lumbar paraspinal muscle Disposition: HOME SELF-CARE Condition: Good Instructions (If sedation given, give patient instructions): Acute Low Back Pain (ED) Is patient prescribed a controlled substance at d/c from ED?: No Referrals: Jabari Sorto MD [Primary Care Provider] - 1-2 days Time of Disposition: 16:35
[2023-02-14 16:52] VITALS: BP 156/86; PULSE 86
== END 2023-02-14 16:52 | disposition home or self-care (01) ==
LOC: EC 15:16
DX: S39.012A Strain of muscle, fascia and tendon of lower back, initial encounter (principal); M54.16 Radiculopathy, lumbar region; I10 Essential (primary) hypertension; E78.5 Hyperlipidemia, unspecified; K21.9 Gastro-esophageal reflux disease without esophagitis; F41.9 Anxiety disorder, unspecified; F31.9 Bipolar disorder, unspecified; F17.200 Nicotine dependence, unspecified, uncomplicated; Z79.01 Long term (current) use of anticoagulants; Z79.899 Other long term (current) drug therapy; X58.XXXA Exposure to other specified factors, initial encounter; Y99.0 Civilian activity done for income or pay
CPT/HCPCS: 99283; 96372; J1170

== ENCOUNTER → 2023-02-17 | Outpatient (CLI) | payer OTHER, MEDICAID ==
[2023-02-17 13:32] VITALS: BP 152/98; PULSE 104; RESP 18; TEMP 98.2
--- NOTE | 2023-02-17 14:05 | P.PAINPG ---
PQRS Measure Charge Sheet Comment: 52 yr old male presents today w severe and chronic LBP secondary to DDD, spondylosis and facet arthropathy for evaluation. Pt states pain level is provoked at 10 /10 in intensity, constant, localized in the mid to lower lumbar spine, burning in character w shooting pain towards the RLE. Pain is provoked by weight bearing. Pain is alleviated by PT x 20 wks in 2021, medications, repositioning and rest. Oswestry axial pain score at 30. Forms completed agreeing w Dr Sorto that pt may return to work while awaiting LESI. Interventional procedures include DENIES Medications include Oxycodone 20mg #60, Neurontin 300mg # 90 REVIEW OF ORGAN SYSTEMS: CONSTITUTIONAL: No fevers or chills. No recent weight loss. NEUROLOGICAL: + numbness and tingling along the distal extremities. No seizure disorders or headaches. MUSCULOSKELETAL: + pain PSYCHIATRIC: Denies current depression or suicidal thoughts. Physical Examinations : Constitutional : Cooperative , not in acute distress . Neurologic : Cranial nerve II to XII intact. No focal ne urological deficits. Psychiatric : alert & oriented x 3. Matching mood & appropriate affect. Judgment & insight intact. Musculoskeletal : Cervical Spine Motor strength in the deltoid and biceps: Normal right side. Normal Left side Motor strength biceps and the wrist extensors: Normal right side . Normal left side Motor strength in the triceps muscle: Normal right side. Normal left side Deep tendon reflexes: Normal at the biceps. Normal at Brachioradialis. Normal at triceps Vertebral body tenderness to deep pa lpation over Cervical facet loading test: positive bilaterally Spurling test: positive bilaterally Neck distraction test: positive bilaterally Pam sign: positive bilaterally Lumbar spine Motor strength lower extremities ,thigh and legs 5/5 Right side , 5/5 Left side Deep tendon reflexes : Normal Knee Jerk. Normal Ankle Jerk Vertebral body tenderness over L4 Tapia Test positive Lumbar facet Loading Test: positive Right / positive Left Range of motion of the lumbar spine Flexion 30 degrees, extension 10 degrees Straight Leg Raise test: Left/ Right positive at 35 degrees Reagan test: positive right / positive left. Severe tenderness over the Sacroiliac joint on the Right / Left sides Gaenslen test: positive bilaterally Seated flexion test: positive bilaterally. Sacral spine : Severe tenderness over the Sacroiliac joint: right side / left side Range of motion: Flexion of the lumbar spine <60 degrees Range of motion: Extension of the lumbar spine <20 degrees Gaenslen's Test positive Shadi's Test positive Reagan test: positive right side / left side Thigh Thrust Test Sacral Thrust Test Imaging: MRI noncontrast of the lumbar spine from 02/03/23 reviewed Assessment/ Plan : Lumbar DDD Forms completed and continued recommendation of MADAY L4-L5 #1. May need a series of injections for optimal pain relief. Risks, benefits of procedure discussed and patient verbalized understanding. Admits to aspirin or anti- coagulant use or medical history of diabetes. Protocol for discontinuation/ continuation of medications [place] procedure discussed. Minimal anesthesia provided, if clinically indicated, consisting of Versed and Fentanyl. All questions answered. I have spent greater than 30 minutes on patient care today. Dr Middleton was available by phone for the evaluation of this patient. The time was used to review the medical records including relevant urine studies and Prescription history (MAPs), review of the available imaging, evaluation and examination of the patient, coordination of care with the medical staff and if applicable referring physicians, as well as creation of the medical record PQRS Narrative: Smoking Status Current every day smoker Hx Alcohol Use (MH) No Home Medications: Ambulatory Orders cloNIDine HCL [Catapres] 0.2 mg PO TID 03/10/16 Metoprolol Succinate [Toprol XL] 100 mg PO DAILY 06/30/18 Acetaminophen Tab [Tylenol] 650 mg PO Q6H PRN 11/26/21 Apixaban [Eliquis] 5 mg PO BID 11/26/21 Folic Acid 1 mg PO DAILY 11/26/21 Gabapentin 600 mg PO TID 11/26/21 LORazepam [Ativan] 0.25 mg PO DAILY 11/26/21 LORazepam [Ativan] 0.5 mg PO HS 11/26/21 Mirtazapine [Remeron] 45 mg PO HS 11/26/21 Multivitamin [Multivitamins Adult Gummies] 1 tab PO DAILY 11/26/21 Omeprazole 20 mg PO BID 11/26/21 Potassium Chloride ER [K-Dur 20] 40 meq PO DAILY 11/26/21 Thiamine [Vitamin B-1] 100 mg PO DAILY 11/26/21 polyethylene glycoL 3350 [Miralax] 17 gm PO DAILY PRN 11/26/21 Nicotine 14Mg/24Hr Patch [Habitrol] 1 patch TRANSDERM DAILY 30 Days #30 patch 11/28/21 lamoTRIgine [LaMICtal] 25 mg PO BID 30 Days #60 tab 11/28/21 Cephalexin [Keflex] 500 mg PO QID #40 cap 12/25/21 Lidocaine 5% Patch [Lidoderm 5% Patch] 1 patch TOPICAL DAILY #30 patch 02/11/23 Controlled Substance Measures - Controlled Substance Measures Is patient prescribed a controlled substance at discharge?: No
== END ==
LOC: PNWHC3 12:39
PROVIDERS: ATTEND Specialist
DX: M51.36 Other intervertebral disc degeneration, lumbar region (principal); M47.816 Spondylosis without myelopathy or radiculopathy, lumbar region; F17.200 Nicotine dependence, unspecified, uncomplicated; Z88.6 Allergy status to analgesic agent
CPT/HCPCS: 99211

== ENCOUNTER 2023-02-23 16:49 | Emergency (ER) | payer MEDICAID, OTHER ==
[2023-02-23 16:54] VITALS: RESP 18
[2023-02-23] MEDS ORDERED: FUROSEMIDE 10 MG/ML 2 ML VIAL IV STA (17:24)
--- NOTE | 2023-02-23 17:45 | ED ---
General Adult HPI - General Chief complaint: Alcohol Stated complaint: ETOH Time Seen by Provider: 02/23/23 17:05 Source: patient, RN notes reviewed, old records reviewed Mode of arrival: EMS Limitations: no limitations - History of Present Illness Initial comments: This is a 52-year-old male who presents emergency department stating that he is recently been drinking heavily and doing quite a few narcotics that he is getting from his primary medical care doctor. Patient states today he got an argument with his neighbor and he felt as though the situation was a court and something might escalate so emotionally after this and he just called EMS come to the hospital clinic to escape that 10 situation. Patient states currently quit drinking and quit doing drugs but he states there is nothing we can do for him here but he needs to do it himself any recent go to rehab or talk to his primary medical care doctor. Patient denies any physical complaints today. Patient denies suicidal or homicidal ideations. Patient is comfortable the conclusion there is no reason for him to be here and that he would just like to be discharged home and is not quite sure why she came in to begin with. Patient denies chest pain difficulty breathing shortness of breath. Patient any abdominal pain. Patient denies any nausea vomiting diarrhea. Patient denies any fever chills or cough - Related Data Home Medications Medication Instructions Recorded Confirmed cloNIDine HCL [Catapres] 0.2 mg PO TID 03/10/16 02/10/23 Metoprolol Succinate [Toprol XL] 100 mg PO DAILY 06/30/18 02/10/23 Acetaminophen Tab [Tylenol] 650 mg PO Q6H PRN 11/26/21 02/10/23 Apixaban [Eliquis] 5 mg PO BID 11/26/21 02/10/23 Folic Acid 1 mg PO DAILY 11/26/21 02/10/23 Gabapentin 600 mg PO TID 11/26/21 02/10/23 LORazepam [Ativan] 0.25 mg PO DAILY 11/26/21 02/10/23 LORazepam [Ativan] 0.5 mg PO HS 11/26/21 02/10/23 Mirtazapine [Remeron] 45 mg PO HS 11/26/21 02/10/23 Multivitamin [Multivitamins Adult 1 tab PO DAILY 11/26/21 02/10/23 Gummies] Omeprazole 20 mg PO BID 11/26/21 02/10/23 Potassium Chloride ER [K-Dur 20] 40 meq PO DAILY 11/26/21 02/10/23 Thiamine [Vitamin B-1] 100 mg PO DAILY 11/26/21 02/10/23 polyethylene glycoL 3350 [Miralax] 17 gm PO DAILY PRN 11/26/21 02/10/23 Previous Rx's Medication Instructions Recorded Nicotine 14Mg/24Hr Patch [Habitrol] 1 patch TRANSDERM DAILY 30 Days 11/28/21 #30 patch lamoTRIgine [LaMICtal] 25 mg PO BID 30 Days #60 tab 11/28/21 Cephalexin [Keflex] 500 mg PO QID #40 cap 12/25/21 Lidocaine 5% Patch [Lidoderm 5% 1 patch TOPICAL DAILY #30 patch 02/11/23 Patch] Allergies Allergy/AdvReac Type Severity Reaction Status Date / Time ketorolac [From Toradol] AdvReac Unknown Verified 02/23/23 16:54 Review of Systems ROS Statement: Those systems with pertinent positive or pertinent negative responses have been documented in the HPI. ROS Other: All systems not noted in ROS Statement are negative. Past Medical History Past Medical History: GERD/Reflux, Hyperlipidemia, Hypertension Additional Past Medical History / Comment(s): Hx of pancreatitis. TONGUE LE MANDI, encephalopathy. History of Any Multi-Drug Resistant Organisms: None Reported Past Surgical History: Cholecystectomy, Hernia Repair Additional Past Surgical History / Comment(s): SX ON NOSE TEEN FOR FX NOSE. COLONOSCOPY/EGD Past Anesthesia/Blood Transfusion Reactions: No Reported Reaction Past Psychological History: Anxiety, Bipolar, Depression Smoking Status: Current every day smoker Past Alcohol Use History: None Reported Past Drug Use History: None Reported - Past Family History Mother Family Medical History: No Reported History Additional Family Medical History / Comment(s): Mother had deoression. She in her sleep recently. Father Family Medical History: Pneumonia General Exam - General Exam Comments Initial Comments: GENERAL Patient is well-developed and well-nourished. Patient is in no acute distress. EYES Patient's pupils are equal and round. Extraocular motion is intact SKIN Unremarkable NEURO The patient is alert and oriented 3 PYSCH Patient has normal interpersonal interactions. MUSCULOSKELETAL Patient can move all 4 extremities Limitations: no limitations Course Vital Signs 02/23/23 16:51 Temperature 97.6 F Pulse Rate 107 H Respiratory 18 Rate Blood Pressure 146/89 O2 Sat by Pulse 96 Oximetry Medical Decision Making - Medical Decision Making Was pt. sent in by a medical professional or institution (WENDY Contreras, CUSTOMER EXPERIENCE STRATEGIST, urgent care, hospital, or long-term...) When possible be specific @ -No Did you speak to anyone other than the patient for history (EMS, parent, family, police, friend...)? What history was obtained from this source @ -No Did you review nursing and triage notes (agree or disagree)? Why? @ -I reviewed and agree with nursing and triage notes Were old charts reviewed (outside hosp., previous admission, EMS record, old EKG, old radiological studies, urgent care reports/EKG's, long-term records)? Report findings @ -No old charts were reviewed Differential Diagnosis (chest pain, altered mental status, abdominal pain women, abdominal pain men, vaginal bleeding, weakness, fever, dyspnea, syncope, headache, dizziness, GI bleed, back pain, seizure, CVA, palpatations, mental health, musculoskeletal)? @ -not applicable EKG interpreted by me (3pts min.). @ -As above X-rays interpreted by me (1pt min.). @ -None done CT interpreted by me (1pt min.). @ -None done U/S interpreted by me (1pt. min.). @ -None done What testing was considered but not performed or refused? (CT, X-rays, U/S, labs)? Why? @ -None What meds were considered but not given or refused? Why? @ -None Did you discuss the management of the patient with other professionals (professionals i.e. WENDY Contreras, CUSTOMER EXPERIENCE STRATEGIST, lab, RT, psych nurse, social science analyst, oil gauger, teacher, forestry technical officer, telehealth case manager)? Give summary @ -No Was smoking cessation discussed for >3mins.? @ -No Was critical care preformed (if so, how long)? @ -No Were there social determinants of health that impacted care today? How? (Homelessness, low income, unemployed, alcoholism, drug addiction, transportation, low edu. Level, literacy, decrease access to med. care, prison, rehab)? @ -No Was there de-escalation of care discussed even if they declined (Discuss DNR or withdrawal of care, Hospice)? DNR status @ -No What co-morbidities impacted this encounter? (DM, HTN, Smoking, COPD, CAD, Cancer, CVA, ARF, Chemo, Hep., AIDS, mental health diagnosis, sleep apnea, morbid obesity)? @ -None Was patient admitted / discharged? Hospital course, mention meds given and route, prescriptions, significant lab abnormalities, going to OR and other pertinent info. @ -Initially interviewed the patient he was talking to me about his alcohol and narcotics abuse and after we talked for a short period of time he realized that he had no recent be in the emergency department this time that he needs to follow up and get help as an outpatient and he asked if he could just be discharged home at that time I asked him multiple times if he needed anything from us at all and he said absolutely not Undiagnosed new problem with uncertain prognosis? @ -No Drug Therapy requiring intensive monitoring for toxicity (Heparin, Nitro, Insulin, Cardizem)? @ -No Were any procedures done? @ -No Diagnosis/symptom? @ -Alcohol abuse Acute, or Chronic, or Acute on Chronic? @ -Acute on chronic Uncomplicated (without systemic symptoms) or Complicated (systemic symptoms)? @ -Complicated Side effects of treatment? @ -No Exacerbation, Progression, or Severe Exacerbation? @ -No Poses a threat to life or bodily function? How? (Chest pain, [place], PA, pneumonia, PE, COPD, DKA, ARF, appy, cholecystitis, CVA, Diverticulitis, Homicidal, Suicidal, threat to staff... and all critical care pts) @ -No Diagnosis/symptom? @ -Narcotic abuse Acute, or Chronic, or Acute on Chronic? @ -Acute Uncomplicated (without systemic symptoms) or Complicated (systemic symptoms)? @ -Complicated Side effects of treatment? @ -none Exacerbation, Progression, or Severe Exacerbation] @ -no Poses a threat to life or bodily function? @ -no Disposition Clinical Impression: Alcohol abuse, Narcotic abuse Disposition: HOME SELF-CARE Condition: Good Instructions (If sedation given, give patient instructions): Abuse of Alcohol (ED), Narcotic Use Disorder (ED) Additional Instructions: Patient should follow-up with the rehabilitation Center or primary medical care doctor to try to stop her opiate abuse Is patient prescribed a controlled substance at d/c from ED?: No Referrals: None,Stated [Primary Care Provider] - 1-2 days Time of Disposition: 17:44
[2023-02-23 18:14] VITALS: BP 157/82; PULSE 94; TEMP 98.1
== END 2023-02-23 18:35 | disposition home or self-care (01) ==
LOC: EC 16:49
DX: F10.10 Alcohol abuse, uncomplicated (principal); F11.10 Opioid abuse, uncomplicated; E78.5 Hyperlipidemia, unspecified; I10 Essential (primary) hypertension; K21.9 Gastro-esophageal reflux disease without esophagitis; F17.200 Nicotine dependence, unspecified, uncomplicated; Z79.01 Long term (current) use of anticoagulants; Z79.899 Other long term (current) drug therapy; Z88.8 Allergy status to other drugs, medicaments and biological substances; Z90.49 Acquired absence of other specified parts of digestive tract
CPT/HCPCS: 99285

== ENCOUNTER 2023-03-07 15:20 | Inpatient (IN) | payer MEDICAID, OTHER ==
[2023-03-07] MEDS ORDERED: SODIUM CHLORIDE 0.9% 1,000 ML IV STA (16:03)
[2023-03-07] MEDS ORDERED: THIAMINE 100 MG/ML 2 ML VIAL IM STA (16:04)
[2023-03-07] MEDS ORDERED: IBUPROFEN 600 MG TAB PO STA (16:12)
[2023-03-07] MEDS: LORazepam 2 MG/ML INJ IV PRN ×4 (16:43→22:18)
--- NOTE | 2023-03-07 16:46 | ED ---
Psych HPI - General Chief Complaint: Psychiatric Symptoms Stated Complaint: Syncope Time Seen by Provider: 03/07/23 15:57 Source: patient, EMS Mode of arrival: EMS - History of Present Illness Initial Comments: 52-year-old male presenting with chief complaint of alcohol withdrawal. Patient was attempting to [facility] today when he began to feel as if he was going to pass out. EMS brought him [facility] facility [facility]. States that he is withdrawing from alcohol, benzos, and opiates. States that his last drink was 2 days ago. He normally has 6-8 beers per night. He has had seizures from withdrawal before. States that he feels very "shaky". Admits to chest pain. Denies shortness of breath, nausea, vomiting, abdominal pain. No cough, congestion, sore throat. - Related Data Home Medications Medication Instructions Recorded Confirmed cloNIDine HCL [Catapres] 0.2 mg PO TID 03/10/16 03/07/23 Apixaban [Eliquis] 5 mg PO BID 11/26/21 03/07/23 Gabapentin 600 mg PO TID 11/26/21 03/07/23 Mirtazapine [Remeron] 45 mg PO HS 11/26/21 03/07/23 ALPRAZolam [Xanax] 2 mg PO Q12H 02/23/23 03/07/23 DULoxetine HCL [Cymbalta] 60 mg PO DAILY 02/23/23 03/07/23 Desvenlafaxine [Pristiq ER] 100 mg PO DAILY 02/23/23 03/07/23 Dextroamphetamine/Amphetamine 10 mg PO BID 02/23/23 03/07/23 [Adderall] Ergocalciferol [Vitamin D2 (1250 1,250 mcg PO Q7D 02/23/23 03/07/23 Mcg = 73680 Iu)] Eszopiclone [Lunesta] 3 mg PO HS 02/23/23 03/07/23 Furosemide [Lasix] 40 mg PO DAILY 02/23/23 03/07/23 HYDROcodone/APAP 10-325MG [Carmen 1 tab PO Q8H PRN 02/23/23 03/07/23 10-325] LORazepam [Ativan] 1 mg PO BID 02/23/23 03/07/23 Metoclopramide [Reglan] 10 mg PO BID 02/23/23 03/07/23 Metoprolol Succinate [Toprol XL] 200 mg PO DAILY 02/23/23 03/07/23 Omeprazole [PriLOSEC] 40 mg PO BID 02/23/23 03/07/23 Sildenafil Citrate [Viagra] 100 mg PO DAILY PRN 02/23/23 03/07/23 Simvastatin [Zocor] 40 mg PO HS 02/23/23 03/07/23 Tamsulosin HCl [Flomax] 0.4 mg PO DAILY 02/23/23 03/07/23 methocarbamoL [Robaxin-750] 750 mg PO HS 02/23/23 03/07/23 oxyCODONE HCL [oxyCODONE HCL (IR)] 20 mg PO TID 02/23/23 03/07/23 Previous Rx's Medication Instructions Recorded Lidocaine 5% Patch [Lidoderm 5% 1 patch TOPICAL DAILY #30 patch 02/11/23 Patch] Allergies Allergy/AdvReac Type Severity Reaction Status Date / Time ketorolac [From Toradol] AdvReac See comment Verified 03/07/23 19:37 Review of Systems ROS Statement: Those systems with pertinent positive or pertinent negative responses have been documented in the HPI. ROS Other: All systems not noted in ROS Statement are negative. Past Medical History Past Medical History: GERD/Reflux, Hyperlipidemia, Hypertension Additional Past Medical History / Comment(s): Hx of pancreatitis. TONGUE LESION, encephalopathy. History of Any Multi-Drug Resistant Organisms: None Reported Past Surgical History: Cholecystectomy, Hernia Repair Additional Past Surgical History / Comment(s): SX ON NOSE TEEN FOR FX NOSE. COLONOSCOPY/EGD Past Anesthesia/Blood Transfusion Reactions: No Reported Reaction Past Psychological History: Anxiety, Bipolar, Depression Smoking Status: Current every day smoker Past Alcohol Use History: None Reported, Abuse Past Drug Use History: None Reported, Cocaine, Opiates - Past Family History Mother Family Medical History: No Reported History Additional Family Medical History / Comment(s): Mother had deoression. She in her sleep recently. Father Family Medical History: Pneumonia General Exam Limitations: no limitations General appearance: alert, in no apparent distress Head exam: Present: atraumatic, normocephalic, normal inspection Eye exam: Present: normal appearance, PERRL, EOMI. Absent: scleral icterus, conjunctival injection, periorbital swelling Neck exam: Present: normal inspection, full ROM Respiratory exam: Present: normal lung sounds bilaterally. Absent: respiratory distress, wheezes, rales, rhonchi, stridor Cardiovascular Exam: Present: regular rate, normal rhythm, normal heart sounds. Absent: systolic murmur, diastolic murmur, rubs, gallop, clicks Neurological exam: Present: alert, oriented X3, CN II-XII intact Expanded Patient oriented to: Present: person, place, time Speech: Present: fluid speech Cranial nerves: EOM's Intact: Normal Motor strength exam: RUE: 5, LUE: 5, RLE: 5, LLE: 5 Eye Response: (4) open spontaneously Motor Response: (6) obeys commands Verbal Response: (5) oriented Darby Total: 15 Psychiatric exam: Present: normal affect, normal mood Skin exam: Present: warm, dry, intact, normal color. Absent: rash Course Vital Signs 03/07/23 03/07/23 03/07/23 15:37 15:42 16:00 Temperature 100.4 F H Pulse Rate 81 Respiratory 18 Rate Blood Pressure 149/96 O2 Sat by Pulse 97 96 96 Oximetry 03/07/23 03/07/23 03/07/23 16:10 16:20 16:30 Temperature Pulse Rate Respiratory Rate Blood Pressure O2 Sat by Pulse 97 95 95 Oximetry 03/07/23 03/07/23 03/07/23 16:40 16:50 17:00 Temperature Pulse Rate Respiratory Rate Blood Pressure 149/96 149/96 149/96 O2 Sat by Pulse 93 L 96 94 L Oximetry 03/07/23 03/07/23 03/07/23 17:10 17:20 17:30 Temperature Pulse Rate Respiratory Rate Blood Pressure 149/96 149/96 149/96 O2 Sat by Pulse 94 L 97 97 Oximetry 03/07/23 03/07/23 03/07/23 17:40 17:50 18:00 Temperature Pulse Rate Respiratory Rate Blood Pressure 149/96 149/96 149/96 O2 Sat by Pulse 95 96 97 Oximetry 03/07/23 03/07/23 03/07/23 18:10 18:20 18:30 Temperature Pulse Rate Respiratory Rate Blood Pressure 149/96 149/96 149/96 O2 Sat by Pulse Oximetry 03/07/23 03/07/23 03/07/23 18:40 18:50 19:00 Temperature Pulse Rate Respiratory Rate Blood Pressure 149/96 149/96 149/96 O2 Sat by Pulse Oximetry 03/07/23 03/07/23 03/07/23 19:10 19:20 19:30 Temperature Pulse Rate Respiratory Rate Blood Pressure 149/96 O2 Sat by Pulse 98 95 Oximetry 03/07/23 03/07/23 03/07/23 19:40 20:20 20:30 Temperature Pulse Rate Respiratory Rate Blood Pressure 129/92 O2 Sat by Pulse 95 96 95 Oximetry 03/07/23 03/07/23 20:40 22:03 Temperature Pulse Rate 64 Respiratory Rate Blood Pressure O2 Sat by Pulse 96 Oximetry Medical Decision Making - Medical Decision Making Was pt. sent in by a medical professional or institution (, PA, COMPLIANCE PROFESSIONAL, urgent care, hospital, or detention...) When possible be specific @ -No Did you speak to anyone other than the patient for history (EMS, parent, family, police, friend...)? What history was obtained from this source @ -No Did you review nursing and triage notes (agree or disagree)? Why? @ -I reviewed and agree with nursing and triage notes Were old charts reviewed (outside hosp., previous admission, EMS record, old EKG, old radiological studies, urgent care reports/EKG's, detention records)? Report findings @ -No old charts were reviewed Differential Diagnosis (chest pain, altered mental status, abdominal pain women, abdominal pain men, vaginal bleeding, weakness, fever, dyspnea, syncope, headache, dizziness, GI bleed, back pain, seizure, CVA, palpatations, mental health, musculoskeletal)? @ -MDM Differential Syncope: Valvular disease, hypertrophic cardiomyopathy, pulmonary embolism, tamponade, tachycardia, bradycardia, MS, hypovolemia, hemorrhage, dissection, anemia, intracranial hemorrhage, seizure, hypoglycemia, carbon monoxide poisoning this is not meant to be an all-inclusive list. EKG interpreted by me (3pts min.). @ -Sinus rhythm ventricular rate 78. MN interval 176. QRS 105. QT 410. QTC 443. Left axis deviation. X-rays interpreted by me (1pt min.). @ -No acute cardiopulmonary process on chest x-ray CT interpreted by me (1pt min.). @ -None done U/S interpreted by me (1pt. min.). @ -None done What testing was considered but not performed or refused? (CT, X-rays, U/S, labs)? Why? @ -None What meds were considered but not given or refused? Why? @ -None Did you discuss the management of the patient with other professionals (professionals i.e. Dr., PA, COMPLIANCE PROFESSIONAL, lab, RT, psych nurse, nephrology social worker, equipment tech, teacher, senior major gifts officer, case management social worker)? Give summary @ -I spoke with Dr. Sorto who accepted admission of this patient Was smoking cessation discussed for >3mins.? @ -No Was critical care preformed (if so, how long)? @ -No Were there social determinants of health that impacted care today? How? (Homelessness, low income, unemployed, alcoholism, drug addiction, transportation, low edu. Level, literacy, decrease access to med. care, penitentiary, rehab)? @ -No Was there de-escalation of care discussed even if they declined (Discuss DNR or withdrawal of care, Hospice)? DNR status @ -No What co-morbidities impacted this encounter? (DM, HTN, Smoking, COPD, CAD, Cancer, CVA, ARF, Chemo, Hep., AIDS, mental health diagnosis, sleep apnea, morbid obesity)? @ -None Was patient admitted / discharged? Hospital course, mention meds given and route, prescriptions, significant lab abnormalities, going to OR and other pertinent info. @ -52-year-old male presenting with chief complaint of presyncopal event. He states he is currently withdrawing from alcohol, opiates, and benzos. He normally has 6-8 drinks per night. Last drink was 2 nights ago. Has history of withdrawal seizures. CIWA score is 10. WBC 13.5. Sodium 127. Potassium 3.2, patient is receiving IV fluids and oral potassium replacement. Mild transaminitis. Negative troponin. EKG shows no acute findings. Toxicology is grossly negative. Negative chest x-ray. I spoke with Dr. Sorto who accepted admission of this patient for alcohol withdrawal. Patient is agreeable with this plan. I discussed this case with my attending Dr. Jane Undiagnosed new problem with uncertain prognosis? @ -No Drug Therapy requiring intensive monitoring for toxicity (Heparin, Nitro, Insu wsiam, Cardizem)? @ -No Were any procedures done? @ -No Diagnosis/symptom? @ -Alcohol withdrawal Acute, or Chronic, or Acute on Chronic? @ -Acute Uncomplicated (without systemic symptoms) or Complicated (systemic symptoms)? @ -Complicated Side effects of treatment? @ -No Exacerbation, Progression, or Severe Exacerbation? @ -No Poses a threat to life or bodily function? How? (Chest pain, USA, MS, pneumonia, PE, COPD, DKA, ARF, appy, cholecystitis, CVA, Diverticulitis, Homicidal, Suicidal, threat to staff... and all critical care pts) @ -yes - Lab Data Result diagrams: 03/07/23 16:26 03/07/23 16:26 Lab Results 03/07/23 03/07/23 03/07/23 Range/Units 16:26 16:26 16:26 WBC 13.5 H (3.8-10.6) k/uL RBC 4.83 (4.30-5.90) m/uL Hgb 14.2 (13.0-17.5) gm/dL Hct 40.4 (39.0-53.0) % MCV 83.8 (80.0-100.0) fL MCH 29.4 (25.0-35.0) pg MCHC 35.1 (31.0-37.0) g/dL RDW 13.6 (11.5-15.5) % Plt Count 156 (150-450) k/uL MPV 10.3 Neutrophils % 73 % Lymphocytes % 18 % Monocytes % 6 % Eosinophils % 1 % Basophils % 1 % Neutrophils # 9.9 H (1.3-7.7) k/uL Lymphocytes # 2.4 (1.0-4.8) k/uL Monocytes # 0.8 (0-1.0) k/uL Eosinophils # 0.1 (0-0.7) k/uL Basophils # 0.1 (0-0.2) k/uL PT 10.4 (9.0-12.0) sec INR 1.0 (<1.2) APTT 21.5 L (22.0-30.0) sec Sodium (137-145) mmol/L Potassium (3.5-5.1) mmol/L Chloride (98-107) mmol/L Carbon Dioxide (22-30) mmol/L Anion Gap mmol/L BUN (9-20) mg/dL Creatinine (0.66-1.25) mg/dL Est GFR (CKD-EPI)AfAm (>60 ml/min/1.73 sqM) Est GFR (CKD-EPI)NonAf (>60 ml/min/1.73 sqM) Glucose (74-99) mg/dL Calcium (8.4-10.2) mg/dL Magnesium (1.6-2.3) mg/dL Total Bilirubin (0.2-1.3) mg/dL AST (17-59) U/L ALT (4-49) U/L Alkaline Phosphatase (38-126) U/L Troponin I (0.000-0.034) ng/mL Total Protein (6.3-8.2) g/dL Albumin (3.5-5.0) g/dL Urine Color Yellow Urine Appearance Clear (Clear) Urine pH 6.0 (5.0-8.0) Ur Specific Jackson 1.013 (1.001-1.035) Urine Protein Trace H (Negative) Urine Glucose (UA) Negative (Negative) Urine Ketones Negative (Negative) Urine Blood Negative (Negative) Urine Nitrite Negative (Negative) Urine Bilirubin Negative (Negative) Urine Urobilinogen <2.0 (<2.0) mg/dL Ur Leukocyte Esterase Negative (Negative) Salicylates mg/dL Urine Opiates Screen (NotDetected) Ur Oxycodone Screen (NotDetected) Urine Methadone Screen (NotDetected) Ur Propoxyphene Screen (NotDetected) Acetaminophen ug/mL Ur Barbiturates Screen (NotDetected) U Tricyclic Antidepress (NotDetected) Ur Phencyclidine Scrn (NotDetected) Ur Amphetamines Screen (NotDetected) U Methamphetamines Scrn (NotDetected) U Benzodiazepines Scrn (NotDetected) Urine Cocaine Screen (NotDetected) U Marijuana (THC) Screen (NotDetected) Serum Alcohol mg/dL Influenza Type A (PCR) (Not Detectd) Influenza Type B (PCR) (Not Detectd) RSV (PCR) (Not Detectd) SARS-CoV-2 (PCR) (Not Detectd) 03/07/23 03/07/23 03/07/23 Range/Units 16:26 16:26 16:26 WBC (3.8-10.6) k/uL RBC (4.30-5.90) m/uL Hgb (13.0-17.5) gm/dL Hct (39.0-53.0) % MCV (80.0-100.0) fL MCH (25.0-35.0) pg MCHC (31.0-37.0) g/dL RDW (11.5-15.5) % Plt Count (150-450) k/uL MPV Neutrophils % % Lymphocytes % % Monocytes % % Eosinophils % % Basophils % % Neutrophils # (1.3-7.7) k/uL Lymphocytes # (1.0-4.8) k/uL Monocytes # (0-1.0) k/uL Eosinophils # (0-0.7) k/uL Basophils # (0-0.2) k/uL PT (9.0-12.0) sec INR (<1.2) APTT (22.0-30.0) sec Sodium 127 L (137-145) mmol/L Potassium 3.2 L (3.5-5.1) mmol/L Chloride 91 L (98-107) mmol/L Carbon Dioxide 24 (22-30) mmol/L Anion Gap 12 mmol/L BUN 18 (9-20) mg/dL Creatinine 0.84 (0.66-1.25) mg/dL Est GFR (CKD-EPI)AfAm >90 (>60 ml/min/1.73 sqM) Est GFR (CKD-EPI)NonAf >90 (>60 ml/min/1.73 sqM) Glucose 106 H (74-99) mg/dL Calcium 8.9 (8.4-10.2) mg/dL Magnesium 2.0 (1.6-2.3) mg/dL Total Bilirubin 0.7 (0.2-1.3) mg/dL AST 71 H (17-59) U/L ALT 62 H (4-49) U/L Alkaline Phosphatase 96 (38-126) U/L Troponin I <0.012 (0.000-0.034) ng/mL Total Protein 6.9 (6.3-8.2) g/dL Albumin 4.3 (3.5-5.0) g/dL Urine Color Urine Appearance (Clear) Urine pH (5.0-8.0) Ur Specific Jackson (1.001-1.035) Urine Protein (Negative) Urine Glucose (UA) (Negative) Urine Ketones (Negative) Urine Blood (Negative) Urine Nitrite (Negative) Urine Bilirubin (Negative) Urine Urobilinogen (<2.0) mg/dL Ur Leukocyte Esterase (Negative) Salicylates <1.0 mg/dL Urine Opiates Screen Not Detected (NotDetected) Ur Oxycodone Screen Not Detected (NotDetected) Urine Methadone Screen Not Detected (NotDetected) Ur Propoxyphene Screen Not Detected (NotDetected) Acetaminophen <10.0 ug/mL Ur Barbiturates Screen Not Detected (NotDetected) U Tricyclic Antidepress Not Detected (NotDetected) Ur Phencyclidine Scrn Not Detected (NotDetected) Ur Amphetamines Screen Not Detected (NotDetected) U Methamphetamines Scrn Not Detected (NotDetected) U Benzodiazepines Scrn Not Detected (NotDetected) Urine Cocaine Screen Not Detected (NotDetected) U Marijuana (THC) Screen Not Detected (NotDetected) Serum Alcohol <10 mg/dL Influenza Type A (PCR) (Not Detectd) Influenza Type B (PCR) (Not Detectd) RSV (PCR) (Not Detectd) SARS-CoV-2 (PCR) (Not Detectd) 03/07/23 Range/Units 16:26 WBC (3.8-10.6) k/uL RBC (4.30-5.90) m/uL Hgb (13.0-17.5) gm/dL Hct (39.0-53.0) % MCV (80.0-100.0) fL MCH (25.0-35.0) pg MCHC (31.0-37.0) g/dL RDW (11.5-15.5) % Plt Count (150-450) k/uL MPV Neutrophils % % Lymphocytes % % Monocytes % % Eosinophils % % Basophils % % Neutrophils # (1.3-7.7) k/uL Lymphocytes # (1.0-4.8) k/uL Monocytes # (0-1.0) k/uL Eosinophils # (0-0.7) k/uL Basophils # (0-0.2) k/uL PT (9.0-12.0) sec INR (<1.2) APTT (22.0-30.0) sec Sodium (137-145) mmol/L Potassium (3.5-5.1) mmol/L Chloride (98-107) mmol/L Carbon Dioxide (22-30) mmol/L Anion Gap mmol/L BUN (9-20) mg/dL Creatinine (0.66-1.25) mg/dL Est GFR (CKD-EPI)AfAm (>60 ml/min/1.73 sqM) Est GFR (CKD-EPI)NonAf (>60 ml/min/1.73 sqM) Glucose (74-99) mg/dL Calcium (8.4-10.2) mg/dL Magnesium (1.6-2.3) mg/dL Total Bilirubin (0.2-1.3) mg/dL AST (17-59) U/L ALT (4-49) U/L Alkaline Phosphatase (38-126) U/L Troponin I (0.000-0.034) ng/mL Total Protein (6.3-8.2) g/dL Albumin (3.5-5.0) g/dL Urine Color Urine Appearance (Clear) Urine pH (5.0-8.0) Ur Specific Jackson (1.001-1.035) Urine Protein (Negative) Urine Glucose (UA) (Negative) Urine Ketones (Negative) Urine Blood (Negative) Urine Nitrite (Negative) Urine Bilirubin (Negative) Urine Urobilinogen (<2.0) mg/dL Ur Leukocyte Esterase (Negative) Salicylates mg/dL Urine Opiates Screen (NotDetected) Ur Oxycodone Screen (NotDetected) Urine Methadone Screen (NotDetected) Ur Propoxyphene Screen (NotDetected) Acetaminophen ug/mL Ur Barbiturates Screen (NotDetected) U Tricyclic Antidepress (NotDetected) Ur Phencyclidine Scrn (NotDetected) Ur Amphetamines Screen (NotDetected) U Methamphetamines Scrn (NotDetected) U Benzodiazepines Scrn (NotDetected) Urine Cocaine Screen (NotDetected) U Marijuana (THC) Screen (NotDetected) Serum Alcohol mg/dL Influenza Type A (PCR) Not Detected (Not Detectd) Influenza Type B (PCR) Not Detected (Not Detectd) RSV (PCR) Not Detected (Not Detectd) SARS-CoV-2 (PCR) Not Detected (Not Detectd) Disposition Clinical Impression: Alcohol withdrawal Disposition: ADMITTED IP TO THIS HOSP Condition: Fair Time of Disposition: 18:24
[2023-03-07 17:00] LABS: Basophils # (A) 0.1 k/uL (0-0.2); Basophils % (A) 1 %; Eosinophils # (A) 0.1 k/uL (0-0.7); Eosinophils % (A) 1 %; HCT 40.4 % (39.0-53.0); HGB 14.2 gm/dL (13.0-17.5); Lymphocytes # (A) 2.4 k/uL (1.0-4.8); Lymphocytes % (A) 18 %; MCH 29.4 pg (25.0-35.0); MCHC 35.1 g/dL (31.0-37.0); MCV 83.8 fL (80.0-100.0); Mean Platelet Volume 10.3; Monocytes # (A) 0.8 k/uL (0-1.0); Monocytes % (A) 6 %; Neutrophils # (A) 9.9 k/uL (1.3-7.7); Neutrophils % (A) 73 %; Platelet Count 156 k/uL (150-450); RBC 4.83 m/uL (4.30-5.90); RDW 13.6 % (11.5-15.5); WBC 13.5 k/uL (3.8-10.6)
[2023-03-07 17:22] LABS: Prothrombin Time 10.4 sec (9.0-12.0)
[2023-03-07 17:25] LABS: Partial Thromboplastin Time 21.5 sec (22.0-30.0)
[2023-03-07 17:28] LABS: ALT 62 U/L (4-49); AST 71 U/L (17-59); Acetaminophen <10.0 ug/mL; African American GFR (CKD) >90 (>60 ml/min/1.73 sqM); Albumin 4.3 g/dL (3.5-5.0); Alcohol <10 mg/dL; Alkaline Phosphatase 96 U/L (38-126); Anion Gap 12 mmol/L; Blood Urea Nitrogen 18 mg/dL (9-20); Calcium 8.9 mg/dL (8.4-10.2); Carbon Dioxide 24 mmol/L (22-30); Chloride 91 mmol/L (98-107); Glucose 106 mg/dL (74-99); Non-African American GFR(CKD) >90 (>60 ml/min/1.73 sqM); Potassium 3.2 mmol/L (3.5-5.1); Salicylate <1.0 mg/dL; Sodium 127 mmol/L (137-145); Total Bilirubin 0.7 mg/dL (0.2-1.3); Total Protein 6.9 g/dL (6.3-8.2)
[2023-03-07 17:53] LABS: Appearance,Urine Clear (Clear); Bilirubin,Urine Negative (Negative); Blood,Urine Negative (Negative); Color,Urine Yellow; Glucose,Urine (UA) Negative (Negative); Ketones,Urine Negative (Negative); Leukocyte Esterase,Urine Negative (Negative); Nitrite,Urine Negative (Negative); Protein,Urine Trace (Negative); Specific Gravity,Urine 1.013 (1.001-1.035); Urobilinogen,Urine <2.0 mg/dL (<2.0)
[2023-03-07] MEDS ORDERED: Potassium Replacement Protocol 1 EACH MISC MISCELLANE PRN (18:13)
[2023-03-07 18:24] LABS: Amphetamine Screen,Urine Not Detected (NotDetected); Barbiturate Screen,Urine Not Detected (NotDetected); Benzodiazepines Screen,Urine Not Detected (NotDetected); Cocaine Screen,Urine Not Detected (NotDetected); Methadone Screen, Urine Not Detected (NotDetected); Opiate Screen,Urine Not Detected (NotDetected); Oxycodone Screen, Urine Not Detected (NotDetected); Phencyclidine Screen,Urine Not Detected (NotDetected); Tricyclic Antidepressant,Urine Not Detected (NotDetected); Urn Cannabinoid Scrn Not Detected (NotDetected)
[2023-03-07] MEDS ORDERED: IBUPROFEN 400 MG TAB PO PRN (18:24)
[2023-03-07] MEDS ORDERED: NALOXONE 0.4 MG/ML 1 ML VIAL IV PRN (18:24)
[2023-03-07] MEDS ORDERED: ACETAMINOPHEN TAB 325 MG TAB PO PRN (18:24)
[2023-03-07] MEDS: POTASSIUM CHLORIDE ER 20 MEQ TAB.ER PO SCH ×2 (18:30→20:42)
--- NOTE | 2023-03-07 18:51 | XR ---
EXAMINATION TYPE: XR chest 2V DATE OF EXAM: 03/07/2023 6:23 PM COMPARISON: 10/16/2021 TECHNIQUE: XR chest 2V Frontal and lateral views of the chest. CLINICAL INDICATION:Male, 52 years old with history of pre-syncope; FINDINGS: Lungs/Pleura: There is no evidence of pleural effusion, focal consolidation, or pneumothorax. Pulmonary vascularity: Unremarkable. Heart/mediastinum: Cardiomediastinal silhouette is unremarkable. Musculoskeletal: No acute osseous pathology. IMPRESSION: No acute cardiopulmonary disease/process.
[2023-03-07] MEDS ORDERED: HYDROcodone/APAP 10-325MG 1 EACH TAB PO PRN (19:42)
[2023-03-07] MEDS ORDERED: RX INFO: IV CONTRAST WAS GIVEN 1 EACH MISC MISCELLANE PRN (19:47)
[2023-03-07] MEDS: ATORVASTATIN 20 MG TAB PO SCH (20:40)
[2023-03-07] MEDS: METOPROLOL TARTRATE 50 MG TAB PO SCH (20:40)
[2023-03-07] MEDS: MIRTAZAPINE 45 MG TABLET PO SCH (20:41)
[2023-03-07] MEDS: PANTOPRAZOLE 40 MG TABLET PO SCH (20:41)
--- NOTE | 2023-03-07 21:26 | CT ---
EXAMINATION TYPE: CT chest w con CT DLP: 591.2 mGycm, Automated exposure control for dose reduction was used. DATE OF EXAM: 03/07/2023 8:18 PM COMPARISON: 10/01/2017 CLINICAL INDICATION:Male, 52 years old with history of granuloma/pulm htn; PHH, granuloma/pulm htn TECHNIQUE: Multiple axial images were obtained through the chest. Sagittal and coronal reformats were created for review. Contrast used:80ml mL of Isovue 300 with IV Contrast (None if empty) Oral contrast used: (None if empty) FINDINGS: LUNGS/ PLEURA: No evidence for focal infiltrates, pneumothorax or pleural effusion. Calcified granulo mas in the right lower lobe superior segment. AIRWAY: Patent and unremarkable. HEART: Size within normal limits. MEDIASTINUM: No gross evidence of adenopathy. VASCULATURE: No aortic aneurysm. Visualized central pulmonary vasculature is patent. Ascending thora cic aorta ectasia measuring up to 41 mm. MUSCULOSKELETAL: No acute osseous abnormalities SOFT TISSUES/LYMPH NODES: Unremarkable. LOWER NECK: No significant findings. UPPER ABDOMEN: Diffuse low-attenuation to the liver parenchyma. The gallbladder surgically absent. IMPRESSION: 1. No evidence for acute process. 2. Hepatic steatosis. 3. Borderline ectasia of ascending thoracic aorta measuring up to 41 mm.
[2023-03-07] MEDS: BUDESONIDE 0.5 MG/2 ML NEBU INHALATION SCH (22:03)
[2023-03-07] MEDS: IPRATROPIUM-ALBUTEROL 3 ML NEB INHALATION SCH (22:03)
[2023-03-07] MEDS: cloNIDine HCL 0.2 MG TAB PO SCH (22:19)
[2023-03-07] MEDS: GABAPENTIN 300 MG CAP PO SCH (22:19)
[2023-03-08] MEDS: PANTOPRAZOLE 40 MG TABLET PO SCH ×2 (06:41→15:08)
[2023-03-08] MEDS: LORazepam 2 MG/ML INJ IV PRN ×10 (07:25→22:11)
[2023-03-08 08:02] LABS: Basophils # (A) 0.1 k/uL (0-0.2); Basophils % (A) 1 %; Eosinophils # (A) 0.2 k/uL (0-0.7); Eosinophils % (A) 3 %; HCT 39.4 % (39.0-53.0); HGB 13.2 gm/dL (13.0-17.5); Lymphocytes # (A) 1.7 k/uL (1.0-4.8); Lymphocytes % (A) 21 %; MCH 28.7 pg (25.0-35.0); MCHC 33.3 g/dL (31.0-37.0); Mean Platelet Volume 10.7; Monocytes # (A) 0.7 k/uL (0-1.0); Monocytes % (A) 9 %; Neutrophils # (A) 5.1 k/uL (1.3-7.7); Neutrophils % (A) 64 %; Platelet Count 134 k/uL (150-450); RBC 4.59 m/uL (4.30-5.90); RDW 13.6 % (11.5-15.5)
[2023-03-08] MEDS: cloNIDine HCL 0.2 MG TAB PO SCH ×3 (08:11→22:14)
[2023-03-08] MEDS: TAMSULOSIN 0.4 MG CAP.ER.24H PO SCH (08:11)
[2023-03-08] MEDS: THIAMINE 100 MG TAB PO SCH (08:11)
[2023-03-08] MEDS: DESVENLAFAXINE SUCCINATE 50 MG TAB.ER.24H PO SCH (08:11)
[2023-03-08] MEDS: GABAPENTIN 300 MG CAP PO SCH ×3 (08:11→22:14)
[2023-03-08] MEDS: METOPROLOL TARTRATE 50 MG TAB PO SCH ×2 (08:11→20:15)
[2023-03-08] MEDS: ENOXAPARIN 40 MG/0.4 ML SYRINGE SQ SCH (08:11)
[2023-03-08 08:24] LABS: ALT 55 U/L (4-49); AST 59 U/L (17-59); African American GFR (CKD) >90 (>60 ml/min/1.73 sqM); Albumin 3.9 g/dL (3.5-5.0); Alkaline Phosphatase 83 U/L (38-126); Anion Gap 9 mmol/L; Blood Urea Nitrogen 15 mg/dL (9-20); Calcium 8.6 mg/dL (8.4-10.2); Carbon Dioxide 25 mmol/L (22-30); Chloride 102 mmol/L (98-107); Glucose 143 mg/dL (74-99); Non-African American GFR(CKD) 82 (>60 ml/min/1.73 sqM); Potassium 3.6 mmol/L (3.5-5.1); Sodium 136 mmol/L (137-145); Total Bilirubin 0.4 mg/dL (0.2-1.3); Total Protein 6.2 g/dL (6.3-8.2)
[2023-03-08] MEDS: BUDESONIDE 0.5 MG/2 ML NEBU INHALATION SCH ×2 (09:29→21:07)
[2023-03-08] MEDS: IPRATROPIUM-ALBUTEROL 3 ML NEB INHALATION SCH ×5 (09:29→21:07)
--- NOTE | 2023-03-08 14:05 | HP ---
HISTORY AND PHYSICAL SUBJECTIVE: This is a 52-year-old white male who came in to [place] for alcohol withdrawal treatment. Discussed the need for Eliquis due to history of blood clots in the past. Still on oxygen. He has been aspirin from Eliquis, cannot afford Eliquis, he has no insurance very shaky, came in for alcohol withdrawal. MEDICATIONS: At home were reviewed. ALLERGIES: Ketorolac. REVIEW OF SYSTEMS: A 14-point review of systems otherwise is negative except for some mild tremors. SOCIAL HISTORY: Current everyday smoker. Alcohol intake as mentioned above. He owns a house, he lives with his girlfriend. FAMILY HISTORY: Mother depression. Father pneumonia. PHYSICAL EXAMINATION: VITAL SIGNS: Reviewed. Afebrile. PSYCH: Fair mood and affect. NEUROLOGIC: Alert and oriented x3. Mild tremor to the extremities. HEMATOLOGY: Negative for Homans. GI: Soft, nontender. HEENT: Normocephalic, atraumatic. Pupils equal, round, reactive. VITAL SIGNS: Blood pressure 140s/90s, O2 saturation 96 to 97, and respiratory rate 16 to 18. PLAN: CIWA protocol. Breathing treatments for COPD. Continue current treatment. Monitor for alcohol withdrawal and electrolytes, will monitor for electrolyte abnormalities. Placed him on thiamine, etc. Prognosis guarded. Please see further orders, saw him in the ER on 03/07/2023. MMODL / IJN: [id number] /
[2023-03-08] MEDS: ATORVASTATIN 20 MG TAB PO SCH (20:15)
[2023-03-08] MEDS: MIRTAZAPINE 45 MG TABLET PO SCH (20:15)
--- NOTE | 2023-03-09 01:11 | PN ---
PROGRESS NOTE SUBJECTIVE: This is a 52-year-old white male, sleepy, lethargic. He has been given blood pressure medication, Ativan for withdrawal, on CIWA protocol, thiamine, vitamins. Blood pressure 140s to 120s over 70s, 95, temp 97.8, pulse 66, and respiratory rate 16 to 18, O2 95% on room air. White count 8, down from 13, platelets 134. Sodium 136 up from 127, potassium 3.6, up from 3.2. Sugars low 100s, creatinine 1.04. ALT, AST decreased from 71 and 59, 62 to 55. Troponin is negative. Protein is low. UA is negative. Drug screen negative. ASSESSMENT: Metabolic encephalopathy secondary to alcohol withdrawal. History of depression and possible bipolar or alcoholism and its addictive behaviors. He is going back to [place] after another day of CIWA protocol until he gets better, then he will go back to [place]. Continue current treatments. Prognosis guarded. MMODL / IJN: [id number] /
[2023-03-09] MEDS: LORazepam 2 MG/ML INJ IV PRN ×11 (03:18→20:26)
[2023-03-09 06:01] LABS: ALT 52 U/L (4-49); AST 45 U/L (17-59); African American GFR (CKD) >90 (>60 ml/min/1.73 sqM); Albumin 3.8 g/dL (3.5-5.0); Alkaline Phosphatase 79 U/L (38-126); Anion Gap 6 mmol/L; Blood Urea Nitrogen 19 mg/dL (9-20); Calcium 8.5 mg/dL (8.4-10.2); Carbon Dioxide 28 mmol/L (22-30); Chloride 107 mmol/L (98-107); Glucose 101 mg/dL (74-99); Non-African American GFR(CKD) 90 (>60 ml/min/1.73 sqM); Potassium 4.1 mmol/L (3.5-5.1); Sodium 141 mmol/L (137-145); Total Bilirubin 0.3 mg/dL (0.2-1.3); Total Protein 6.1 g/dL (6.3-8.2)
[2023-03-09 06:09] LABS: Basophils # (A) 0.1 k/uL (0-0.2); Basophils % (A) 1 %; Eosinophils # (A) 0.3 k/uL (0-0.7); Eosinophils % (A) 3 %; HCT 40.8 % (39.0-53.0); Lymphocytes # (A) 1.9 k/uL (1.0-4.8); Lymphocytes % (A) 20 %; MCH 30.2 pg (25.0-35.0); MCHC 34.4 g/dL (31.0-37.0); MCV 87.7 fL (80.0-100.0); Mean Platelet Volume 10.2; Monocytes # (A) 0.6 k/uL (0-1.0); Monocytes % (A) 6 %; Neutrophils # (A) 6.6 k/uL (1.3-7.7); Neutrophils % (A) 69 %; Platelet Count 142 k/uL (150-450); RBC 4.66 m/uL (4.30-5.90); WBC 9.6 k/uL (3.8-10.6)
[2023-03-09] MEDS: PANTOPRAZOLE 40 MG TABLET PO SCH ×2 (06:55→15:22)
[2023-03-09] MEDS: TAMSULOSIN 0.4 MG CAP.ER.24H PO SCH (08:09)
[2023-03-09] MEDS: GABAPENTIN 300 MG CAP PO SCH ×3 (08:09→20:25)
[2023-03-09] MEDS: ENOXAPARIN 40 MG/0.4 ML SYRINGE SQ SCH (08:09)
[2023-03-09] MEDS: METOPROLOL TARTRATE 50 MG TAB PO SCH ×2 (08:09→20:25)
[2023-03-09] MEDS: THIAMINE 100 MG TAB PO SCH (08:09)
[2023-03-09] MEDS: cloNIDine HCL 0.2 MG TAB PO SCH ×3 (08:09→20:25)
[2023-03-09] MEDS: DESVENLAFAXINE SUCCINATE 50 MG TAB.ER.24H PO SCH (08:10)
[2023-03-09] MEDS: IPRATROPIUM-ALBUTEROL 3 ML NEB INHALATION SCH ×4 (08:39→19:55)
[2023-03-09] MEDS: BUDESONIDE 0.5 MG/2 ML NEBU INHALATION SCH ×2 (08:39→19:55)
[2023-03-09] MEDS ORDERED: chlordiazePOXIDE 25 MG CAP PO STA (18:05)
[2023-03-09] MEDS: ATORVASTATIN 20 MG TAB PO SCH (20:25)
[2023-03-09] MEDS: MIRTAZAPINE 45 MG TABLET PO SCH (20:25)
[2023-03-09] MEDS: chlordiazePOXIDE 25 MG CAP PO SCH (20:26)
[2023-03-10] MEDS: LORazepam 2 MG/ML INJ IV PRN ×10 (00:30→21:57)
[2023-03-10] MEDS: PANTOPRAZOLE 40 MG TABLET PO SCH ×2 (06:31→17:26)
[2023-03-10] MEDS: GABAPENTIN 300 MG CAP PO SCH ×3 (07:50→21:56)
[2023-03-10] MEDS: METOPROLOL TARTRATE 50 MG TAB PO SCH ×2 (07:51→21:56)
[2023-03-10] MEDS: ENOXAPARIN 40 MG/0.4 ML SYRINGE SQ SCH (07:51)
[2023-03-10] MEDS: THIAMINE 100 MG TAB PO SCH (07:51)
[2023-03-10] MEDS: chlordiazePOXIDE 25 MG CAP PO SCH ×3 (07:51→21:56)
[2023-03-10] MEDS: DESVENLAFAXINE SUCCINATE 50 MG TAB.ER.24H PO SCH (07:51)
[2023-03-10] MEDS: TAMSULOSIN 0.4 MG CAP.ER.24H PO SCH (07:51)
[2023-03-10] MEDS: cloNIDine HCL 0.2 MG TAB PO SCH ×3 (07:57→21:56)
[2023-03-10] MEDS: IPRATROPIUM-ALBUTEROL 3 ML NEB INHALATION SCH ×4 (08:44→20:06)
[2023-03-10] MEDS: BUDESONIDE 0.5 MG/2 ML NEBU INHALATION SCH ×2 (08:44→20:06)
[2023-03-10] MEDS: ATORVASTATIN 20 MG TAB PO SCH (21:56)
[2023-03-10] MEDS: MIRTAZAPINE 45 MG TABLET PO SCH (21:56)
--- NOTE | 2023-03-11 01:11 | PN ---
PROGRESS NOTE SUBJECTIVE: A 52-year-old white male, continued on current treatment for alcohol withdrawal. Remains on Ativan and Librium. He seems comfortable at this time. If he does not respond, he can be switched to oral Valium tomorrow. Continues on treatment for COPD, hypertension, etc. Neuropathy from degenerative disk disease. Prognosis guarded. Possible discharge home. Back to [place] in the next day or 2. He is greatly improved. Recheck labs in the morning. Continue vital signs. He is up ambulating in the room. OBJECTIVE: VITAL SIGNS: Reviewed. CARDIOVASCULAR: S1, S2. LUNGS: Clear. GI: Soft. HEMATOLOGY: Negative Homans. PLAN: Continue current treatment. Possible discharge home tomorrow to [place]. Dr. Fernandez will be taking over tomorrow. MMODL / IJN: [id number] /
[2023-03-11] MEDS: IPRATROPIUM-ALBUTEROL 3 ML NEB INHALATION SCH ×4 (07:40→19:56)
[2023-03-11] MEDS: BUDESONIDE 0.5 MG/2 ML NEBU INHALATION SCH ×2 (07:40→19:56)
[2023-03-11] MEDS: PANTOPRAZOLE 40 MG TABLET PO SCH ×2 (08:22→18:38)
[2023-03-11] MEDS: chlordiazePOXIDE 25 MG CAP PO SCH ×3 (08:22→20:57)
[2023-03-11] MEDS: DESVENLAFAXINE SUCCINATE 50 MG TAB.ER.24H PO SCH (08:23)
[2023-03-11] MEDS: cloNIDine HCL 0.2 MG TAB PO SCH ×3 (08:23→16:40)
[2023-03-11] MEDS: GABAPENTIN 300 MG CAP PO SCH ×3 (08:23→16:40)
[2023-03-11] MEDS: ENOXAPARIN 40 MG/0.4 ML SYRINGE SQ SCH (08:23)
[2023-03-11] MEDS: THIAMINE 100 MG TAB PO SCH (08:24)
[2023-03-11] MEDS: TAMSULOSIN 0.4 MG CAP.ER.24H PO SCH (08:24)
[2023-03-11] MEDS: METOPROLOL TARTRATE 50 MG TAB PO SCH ×2 (08:24→20:58)
[2023-03-11] MEDS: LORazepam 2 MG/ML INJ IV PRN ×7 (08:25→20:56)
--- NOTE | 2023-03-11 14:53 | P.CN ---
Psychiatric Consult - . Consult date: 03/11/23 Consult:: 03/11/23 14:52 IDENTIFYING DATA: This patient is a single, employed, 52-year-old male who presents to our hospital on 03/07/2023 for acute alcohol withdrawal HISTORY OF PRESENT ILLNESS: The patient presented to the hospital 03/07/2023, presenting with acute alcohol withdrawal after attempting to check in at [facility] yesterday. The patient is withdrawn from numerous substances including alcohol, benzodiazepine, and opiates. His last drink was reportedly on 03/05/2023 he has been only drinking 8 beers per night. Psychiatrist consulted for evaluation of anxiety. The patient is expressing that he has had intermittent periods of sobriety however has recently relapsed into heavy substance abuse. He reports that he has been struggling with addiction for a long time now. He is currently denying any suicidal or homicidal ideation, intention, and/or plan. He is not reporting any auditory or visual hallucinations. He denies any paranoia or other delusions. His primary concern is his anxiety. He was however informed that he is receiving a significant amount of Librium for acute alcohol withdrawal. He was informed that he would not be prescribe Ativan or Xanax in order to further address his anxiety as he is on a significant amount of medication at this time. The patient was also provided psychoeducation on the development of tolerance and addiction with these medications. The patient then expressed that he was concerned about insomnia. He was informed that we would utilize trazodone. He is not interested in Seroquel as the patient has a history of neuroleptic malignant syndrome. He wishes to pursue rehab once he is medically stabilized. PAST PSYCHIATRIC HISTORY: Patient has a history of polysubstance abuse, anxiety, and bipolar disorder. She is on numerous psychotropic medications including Pristiq, gabapentin, Remeron, Cymbalta, Xanax, and Catapres. Patient denies any previous psychiatric hospitalizations. Patient denies any history of suicide attempts in the past. PAST MEDICAL HISTORY: Past Medical History: GERD/Reflux, Hyperlipidemia, Hypertension Additional Past Medical History / Comment(s): Hx of pancreatitis. TONGUE LESION, encephalopathy. History of Any Multi-Drug Resistant Organisms: None Reported Past Surgical History: Cholecystectomy, Hernia Repair Additional Past Surgical History / Comment(s): SX ON NOSE TEEN FOR FX NOSE. COLONOSCOPY/EGD Past Anesthesia/Blood Transfusion Reactions: No Reported Reaction Past Psychological History: Anxiety, Bipolar, Depression Smoking Status: Current every day smoker Past Alcohol Use History: None Reported, Abuse Past Drug Use History: None Reported, Cocaine, Opiates ALLERGIES: Ketorolac CHEMICAL DEPENDENCY HISTORY: Patient is unable to provide a clear number however he does endorse heavy alcohol use, and opiate abuse. He wishes to continue with rehab upon discharge. FAMILY PSYCHIATRIC/SUBSTANCE USE HISTORY: Patient reports strong family history of polysubstance abuse. SOCIAL HISTORY: Single, however has significant other. 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 MENTAL STATUS EXAM: General Appearance: Patient appears to be stated age is alert, pleasant, and cooperative. Patient appears to have fair hygiene and grooming wearing hospital gown with fair eye contact. Behavior: He is seated upright in his bed with slightly elevated psychomotor activity. Speech: Patient's speech is fluent and nonpressured. Mood/Affect: Patient reports their mood is "very nervous", affect is congruent and tremulous Suicidality/Homicidality: Patient denies any suicidal or homicidal ideation. Perceptions: Patient denies any visual hallucinations and denies any auditory hallucinations Though content/process: Strong fixation on medication management. Memory and concentration: AOX3, grossly intact for the purposes of this session. 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 The patient is not presenting with imminent risk of harm to self or others. He is not overtly manic or psychotic. 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 Furthermore 7.5 mg is more sedating than 45 mg. Start Trazodone 200 mg by mouth at bedtime for insomnia -Patient does not require one-to-one sitter. -Patient provided psychoeducation on polysubstance abuse and addiction. Motivational interviewing to place. -Recommend inpatient substance abuse rehabilitation upon discharge. -Psychiatry will sign off at this point, please contact with any questions. Vital Signs Temp 97.8 F 03/11/23 07:47 Pulse 72 03/11/23 07:47 Resp 16 03/11/23 07:47 BP 184/99 03/11/23 07:47 Pulse Ox 99 03/11/23 07:47 FiO2 Intake & Output 03/10/23 03/11/23 03/11/23 18:59 06:59 18:59 Intake Total 320 Balance 320 Intake: Oral 320 Other: Voiding Method Toilet Urinal # Voids 5 4 Laboratory Results WBC 9.6 k/uL (3.8-10.6) 03/09/23 05:26 RBC 4.66 m/uL (4.30-5.90) 03/09/23 05:26 Hgb 14.0 gm/dL (13.0-17.5) 03/09/23 05:26 Hct 40.8 % (39.0-53.0) 03/09/23 05:26 MCV 87.7 fL (80.0-100.0) 03/09/23 05:26 MCH 30.2 pg (25.0-35.0) 03/09/23 05:26 MCHC 34.4 g/dL (31.0-37.0) 03/09/23 05:26 RDW 14.0 % (11.5-15.5) 03/09/23 05:26 Plt Count 142 k/uL (150-450) L 03/09/23 05:26 MPV 10.2 03/09/23 05:26 Neutrophils % 69 % 03/09/23 05:26 Lymphocytes % 20 % 03/09/23 05:26 Monocytes % 6 % 03/09/23 05:26 Eosinophils % 3 % 03/09/23 05:26 Basophils % 1 % 03/09/23 05:26 Neutrophils # 6.6 k/uL (1.3-7.7) 03/09/23 05:26 Lymphocytes # 1.9 k/uL (1.0-4.8) 03/09/23 05:26 Monocytes # 0.6 k/uL (0-1.0) 03/09/23 05:26 Eosinophils # 0.3 k/uL (0-0.7) 03/09/23 05:26 Basophils # 0.1 k/uL (0-0.2) 03/09/23 05:26 PT 10.4 sec (9.0-12.0) 03/07/23 16:26 INR 1.0 (<1.2) 03/07/23 16:26 APTT 21.5 sec (22.0-30.0) L 03/07/23 16:26 Sodium 141 mmol/L (137-145) 03/09/23 05:26 Potassium 4.1 mmol/L (3.5-5.1) 03/09/23 05:26 Chloride 107 mmol/L (98-107) 03/09/23 05:26 Carbon Dioxide 28 mmol/L (22-30) 03/09/23 05:26 Anion Gap 6 mmol/L 03/09/23 05:26 BUN 19 mg/dL (9-20) 03/09/23 05:26 Creatinine 0.97 mg/dL (0.66-1.25) 03/09/23 05:26 Est GFR (CKD-EPI)AfAm >90 (>60 ml/min/1.73 sqM) 03/09/23 05:26 Est GFR (CKD-EPI)NonAf 90 (>60 ml/min/1.73 sqM) 03/09/23 05:26 Glucose 101 mg/dL (74-99) H 03/09/23 05:26 Calcium 8.5 mg/dL (8.4-10.2) 03/09/23 05:26 Magnesium 2.0 mg/dL (1.6-2.3) 03/07/23 16:26 Total Bilirubin 0.3 mg/dL (0.2-1.3) 03/09/23 05:26 AST 45 U/L (17-59) 03/09/23 05:26 ALT 52 U/L (4-49) H 03/09/23 05:26 Alkaline Phosphatase 79 U/L (38-126) 03/09/23 05:26 Troponin I <0.012 ng/mL (0.000-0.034) 03/07/23 16:26 Total Protein 6.1 g/dL (6.3-8.2) L 03/09/23 05:26 Albumin 3.8 g/dL (3.5-5.0) 03/09/23 05:26 Urine Color Yellow 03/07/23 16:26 Urine Appearance Clear (Clear) 03/07/23 16:26 Urine pH 6.0 (5.0-8.0) 03/07/23 16:26 Ur Specific [place] 1.013 (1.001-1.035) 03/07/23 16:26 Urine Protein Trace (Negative) H 03/07/23 16:26 Urine Glucose (UA) Negative (Negative) 03/07/23 16:26 Urine Ketones Negative (Negative) 03/07/23 16:26 Urine Blood Negative (Negative) 03/07/23 16:26 Urine Nitrite Negative (Negative) 03/07/23 16:26 Urine Bilirubin Negative (Negative) 03/07/23 16:26 Urine Urobilinogen <2.0 mg/dL (<2.0) 03/07/23 16:26 Ur Leukocyte Esterase Negative (Negative) 03/07/23 16:26 Salicylates <1.0 mg/dL 03/07/23 16:26 Urine Opiates Screen Not Detected (NotDetected) 03/07/23 16:26 Ur Oxycodone Screen Not Detected (NotDetected) 03/07/23 16:26 Urine Methadone Screen Not Detected (NotDetected) 03/07/23 16:26 Ur Propoxyphene Screen Not Detected (NotDetected) 03/07/23 16:26 Acetaminophen <10.0 ug/mL 03/07/23 16:26 Ur Barbiturates Screen Not Detected (NotDetected) 03/07/23 16:26 U Tricyclic Antidepress Not Detected (NotDetected) 03/07/23 16:26 Ur Phencyclidine Scrn Not Detected (NotDetected) 03/07/23 16:26 Ur Amphetamines Screen Not Detected (NotDetected) 03/07/23 16:26 U Methamphetamines Scrn Not Detected (NotDetected) 03/07/23 16:26 U Benzodiazepines Scrn Not Detected (NotDetected) 03/07/23 16:26 Urine Cocaine Screen Not Detected (NotDetected) 03/07/23 16:26 U Marijuana (THC) Screen Not Detected (NotDetected) 03/07/23 16:26 Serum Alcohol <10 mg/dL 03/07/23 16:26 Influenza Type A (PCR) Not Detected (Not Detectd) 03/07/23 16:26 Influenza Type B (PCR) Not Detected (Not Detectd) 03/07/23 16:26 RSV (PCR) Not Detected (Not Detectd) 03/07/23 16:26 SARS-CoV-2 (PCR) Not Detected (Not Detectd) 03/07/23 16:26 Allergies Allergy/AdvReac Type Severity Reaction Status Date / Time ketorolac [From Toradol] AdvReac See comment Verified 03/07/23 19:37 03/11/23 14:52
--- NOTE | 2023-03-11 19:22 | P.PN ---
Progress Note - Text Progress Note Date: 03/11/23 Presenting complaint: Anxious Hospital course: -Rounding for Dr. Dr. Barboza. [place] Patient admitted with alcohol withdrawal. He had presented to [place] when he began to feel as a visible to pass out. Patient is sitting in the ER he was withdrawing from alcohol benzodiazepines and opiates. His last drink was 2 days prior to presentation. Normally 68 beers per night. He was very shaky. March 11: Sitting at the edge of the bed. Very anxious. Eating well. Psychiatry was consulted. Patient currently on Librium. Dr. Simmons started the patient on trazodone at night. Cutback the dose of Remeron. I spoke to patient extensively about his alcohol and other ways to handle the situation. Questions answered. Spoke to the nurse patient's girlfriend if she will take him back. Patient able to go back to [place] on Tuesday. Active Medications Acetaminophen (Acetaminophen Tab 325 Mg Tab) 650 mg PO Q6HR PRN PRN Reason: Mild Pain or Fever > 100.5 Albuterol/Ipratropium (Ipratropium-Albuterol 3 Ml Neb) 3 ml INHALATION RT-QID [facility] Last Admin: 03/11/23 15:04 Dose: Not Given Atorvastatin Calcium (Atorvastatin 20 Mg Tab) 20 mg PO HS [facility] Last Admin: 03/10/23 21:56 Dose: 20 mg Budesonide (Budesonide 0.5 Mg/2 Ml Nebu) 0.5 mg INHALATION RT-BID [facility] Last Admin: 03/11/23 07:40 Dose: Not Given Chlordiazepoxide HCl (Chlordiazepoxide 25 Mg Cap) 50 mg PO TID [facility] Last Admin: 03/11/23 16:39 Dose: 50 mg Clonidine (Clonidine Hcl 0.2 Mg Tab) 0.2 mg PO TID [facility] Last Admin: 03/11/23 16:40 Dose: 0.2 mg Desvenlafaxine Succinate (Desvenlafaxine Succinate 50 Mg Tab.Er.24h) 100 mg PO DAILY [facility] Last Admin: 03/11/23 08:23 Dose: 100 mg Enoxaparin Sodium (Enoxaparin 40 Mg/0.4 Ml Syringe) 40 mg SQ DAILY [facility] Last Admin: 03/11/23 08:23 Dose: 40 mg Gabapentin (Gabapentin 300 Mg Cap) 600 mg PO TID [facility] Last Admin: 03/11/23 16:40 Dose: 600 mg Ibuprofen (Ibuprofen 400 Mg Tab) 400 mg PO Q6HR PRN PRN Reason: Mild Pain or Fever > 100.5 Lorazepam (Lorazepam 2 Mg/Ml Inj) 1 mg IV Q1HR PRN PRN Reason: CIWA 10 to 15 Last Admin: 03/11/23 16:39 Dose: 1 mg Lorazepam (Lorazepam 2 Mg/Ml Inj) 1 mg IV Q2HR PRN PRN Reason: CIWA 8 or 9 Last Admin: 03/11/23 18:38 Dose: 1 mg Metoprolol Tartrate (Metoprolol Tartrate 50 Mg Tab) 50 mg PO BID [facility] Last Admin: 03/11/23 08:24 Dose: 50 mg Mirtazapine (Mirtazapine 15 Mg Tab) 7.5 mg PO [facility] Miscellaneous Information (Potassium Replacement Protocol 1 Each Misc) 1 each MISCELLANE DAILY PRN; Protocol PRN Reason: Per Protocol Naloxone HCl (Naloxone 0.4 Mg/Ml 1 Ml Vial) 0.2 mg IV Q2M PRN PRN Reason: Opioid Reversal Pantoprazole Sodium (Pantoprazole 40 Mg Tablet) 40 mg PO AC-BID [facility] Last Admin: 03/11/23 18:38 Dose: 40 mg Tamsulosin HCl (Tamsulosin 0.4 Mg Cap.Er.24h) 0.4 mg PO DAILY [facility] Last Admin: 03/11/23 08:24 Dose: 0.4 mg Thiamine HCl (Thiamine 100 Mg Tab) 100 mg PO DAILY [facility] Last Admin: 03/11/23 08:24 Dose: 100 mg Trazodone HCl (Trazodone Hcl 100 Mg Tab) 200 mg PO [facility] On examination: VITAL SIGNS: [98.3, 93, 16, 11 9 x 88, 98% on room air] GENERAL APPEARANCE: BMI 33.1, sitting of adjuvant awake anxious HEENT: Normal external appearance of nose and ear. Oral cavity normal EYES: Pupils equal. Conjunctiva normal. NECK: JVD not raised. Mass not palpable. RESPIRATORY: Respiratory effort normal. Lungs clear to auscultation. CARDIOVASCULAR: First and second sounds normal. No edema. ABDOMEN: Soft. Liver and spleen not palpable. No tenderness. No mass palpable. PSYCHIATRY: Alert and oriented x3. Mood and affect anxious NEUROLOGICAL: Mild tremors. INVESTIGATIONS, reviewed in the clinical context: CT chest with contrast: Hepatic steatosis. Assessment and plan: -Acute alcohol withdrawal syndrome. Librium. CIWA scale. -Insomnia Trazodone 200 mg daily at bedtime added by psychiatry today. -BPH Flomax 0.4 mg a day -GERD Protonix 40 mg twice a day -Essential hypertension Catapres 0.2 mg 3 times a day, Lopressor 50 mg twice a day -Hyperlipidemia Lipitor 20 mg daily at bedtime -COPD in a current smoker DuoNeb -Chronic nicotine dependence, cigarette smoker Nicotine patch -Depression and Anxiety disorder secondary to polysubstance abuse as per psychiatry Pristiq 100 mg. Neurontin 600 mg 3 times a day. Remeron cutback to 7.5 mg daily at bedtime. -Substance abuse to include opiates and benzodiazepine Medications as above. Total time spent today more than 50 minutes. With over 30 minutes of discussion.
[2023-03-11 19:35] VITALS: RESP 17
[2023-03-11] MEDS: ATORVASTATIN 20 MG TAB PO SCH (20:57)
[2023-03-11] MEDS ORDERED: MIRTAZAPINE 15 MG TAB PO SCH (21:00)
[2023-03-11] MEDS ORDERED: traZODone HCL 100 MG TAB PO SCH (21:00)
[2023-03-12] MEDS: NICOTINE 21MG/24HR PATCH TRANSDERM SCH ×2 (04:03→08:46)
[2023-03-12 07:30] VITALS: BP 124/69; PULSE 74; TEMP 98.4
[2023-03-12 08:02] LABS: Basophils # (A) 0.1 k/uL (0-0.2); Basophils % (A) 1 %; Eosinophils # (A) 0.2 k/uL (0-0.7); Eosinophils % (A) 4 %; HCT 40.8 % (39.0-53.0); HGB 13.6 gm/dL (13.0-17.5); Lymphocytes # (A) 1.3 k/uL (1.0-4.8); Lymphocytes % (A) 22 %; MCH 29.6 pg (25.0-35.0); MCHC 33.4 g/dL (31.0-37.0); MCV 88.8 fL (80.0-100.0); Mean Platelet Volume 9.2; Monocytes # (A) 0.8 k/uL (0-1.0); Monocytes % (A) 14 %; Neutrophils # (A) 3.4 k/uL (1.3-7.7); Neutrophils % (A) 58 %; Platelet Count 158 k/uL (150-450); RBC 4.59 m/uL (4.30-5.90); RDW 14.2 % (11.5-15.5); WBC 5.8 k/uL (3.8-10.6)
[2023-03-12 08:22] LABS: ALT 50 U/L (4-49); AST 37 U/L (17-59); African American GFR (CKD) >90 (>60 ml/min/1.73 sqM); Albumin/Globulin Ratio 1.7; Alkaline Phosphatase 72 U/L (38-126); Anion Gap 9 mmol/L; Blood Urea Nitrogen 14 mg/dL (9-20); Calcium 8.7 mg/dL (8.4-10.2); Carbon Dioxide 25 mmol/L (22-30); Chloride 108 mmol/L (98-107); Globulin 2.4 g/dL; Glucose 93 mg/dL (74-99); Non-African American GFR(CKD) 90 (>60 ml/min/1.73 sqM); Sodium 142 mmol/L (137-145); Total Bilirubin 0.3 mg/dL (0.2-1.3); Total Protein 6.4 g/dL (6.3-8.2)
[2023-03-12 08:38] LABS: Potassium 4.7 mmol/L (3.5-5.1)
[2023-03-12] MEDS: BUDESONIDE 0.5 MG/2 ML NEBU INHALATION SCH (08:41)
[2023-03-12] MEDS: IPRATROPIUM-ALBUTEROL 3 ML NEB INHALATION SCH ×2 (08:41→11:52)
[2023-03-12] MEDS: THIAMINE 100 MG TAB PO SCH (08:45)
[2023-03-12] MEDS: GABAPENTIN 300 MG CAP PO SCH (08:45)
[2023-03-12] MEDS: chlordiazePOXIDE 25 MG CAP PO SCH (08:45)
[2023-03-12] MEDS: TAMSULOSIN 0.4 MG CAP.ER.24H PO SCH (08:45)
[2023-03-12] MEDS: PANTOPRAZOLE 40 MG TABLET PO SCH (08:45)
[2023-03-12] MEDS: cloNIDine HCL 0.2 MG TAB PO SCH (08:45)
[2023-03-12] MEDS: METOPROLOL TARTRATE 50 MG TAB PO SCH (08:45)
[2023-03-12] MEDS: DESVENLAFAXINE SUCCINATE 50 MG TAB.ER.24H PO SCH (08:46)
[2023-03-12] MEDS: ENOXAPARIN 40 MG/0.4 ML SYRINGE SQ SCH (08:46)
[2023-03-12] MEDS: LORazepam 2 MG/ML INJ IV PRN (08:54)
--- NOTE | 2023-03-12 18:25 | P.DS ---
Providers Date of admission: 03/07/23 17:56 Expected date of discharge: 03/12/23 Attending physician: Jabari Sorto Consults: 03/08/23 15:01 Consult Physician Urgent Consulting Provider: Bandar Madera Consult Reason/Comments: etoh withdrawal Do you want consulting provider notified?: Yes 03/11/23 10:38 Consult Physician Routine Consulting Provider: Timbo Zamora Consult Reason/Comments: uncontrolled anxiety, depression Do you want consulting provider notified?: Yes Primary care physician: Jabari Sorto Hospital Course: Presenting complaint: Anxious Hospital course: -Rounding for Dr. Dr. Barboza. [place] Patient admitted with alcohol withdrawal. He had presented to [place] when he began to feel as a visible to pass out. Patient is sitting in the ER he was withdrawing from alcohol benzodiazepines and opiates. His last drink was 2 days prior to presentation. Normally 68 beers per night. He was very shaky. March 11: Sitting at the edge of the bed. Very anxious. Eating well. Psychiatry was consulted. Patient currently on Librium. Dr. Simmons started the patient on trazodone at night. Cutback the dose of Remeron. I spoke to patient extensively about his alcohol and other ways to handle the situation. Questions answered. Spoke to the nurse patient's girlfriend if she will take him back. Patient able to go back to [place] on Tuesday. March 12: Patient doing much better. Patient is comfortable taking him home. Patient is scheduled to go to [place] on Tuesday. He does want to go to half a house after that. Patient had been using excessive benzodiazepines, narcotics prescriptions. These have been canceled. He does state he disorder take them anymore. Medications per psychiatry prescribed. Patient counseled at length about lifestyle and alcohol again. Discussion and discharge planning more than 35 minutes On examination: VITAL SIGNS: 98.4, 74, 17, 124/69, 96% room air GENERAL APPEARANCE: BMI 33.1, sitting ice bed, less anxious HEENT: Normal external appearance of nose and ear. Oral cavity normal EYES: Pupils equal. Conjunctiva normal. NECK: JVD not raised. Mass not palpable. RESPIRATORY: Respiratory effort normal. Lungs clear to auscultation. CARDIOVASCULAR: First and second sounds normal. No edema. ABDOMEN: Soft. Liver and spleen not palpable. No tenderness. No mass palpable. PSYCHIATRY: Alert and oriented x3. Mood and affect some anxiety NEUROLOGICAL: Minimal tremors. INVESTIGATIONS, reviewed in the clinical context: March 12: White count 5.8 hemoglobin 13.6 platelets 158 potassium 4.[address] chest with contrast: Hepatic steatosis. Assessment and plan: -Acute alcohol withdrawal syndrome., Improved -Insomnia Trazodone 200 mg at bedtime added by psychiatry -BPH Flomax 0.4 mg a day -GERD Protonix 40 mg twice a day -Essential hypertension Catapres 0.2 mg 3 times a day, Lopressor 50 mg twice a day -Hyperlipidemia Lipitor 20 mg daily at bedtime -COPD in a current smoker Albuterol when necessary -Chronic nicotine dependence, cigarette smoker Nicotine patch -Depression and Anxiety disorder secondary to polysubstance abuse as per psychiatry Pristiq 100 mg. Neurontin 600 mg 3 times a day. Remeron cutback to 7.5 mg daily at bedtime. -Substance abuse to include opiates and benzodiazepine No renewal of prescriptions. Disposition: Home Plan - Discharge Summary Discharge Rx Participant: No New Discharge Prescriptions: New Mirtazapine 7.5 mg PO HS #30 tablet LORazepam [Ativan] 0.5 mg PO TID PRN 3 Days #9 tab PRN Reason: Anxiety traZODone HCL [Desyrel] 200 mg PO HS #60 tab Nicotine 21Mg/24Hr Patch [Habitrol] 1 each TRANSDERM DAILY #14 patch Albuterol Sulfate [Albuterol Sulfate Hfa] 1 puff PO Q4-6H #8.5 gm Thiamine [Vitamin B-1] 100 mg PO DAILY #30 tablet Continue cloNIDine HCL [Catapres] 0.2 mg PO TID Gabapentin 600 mg PO TID Apixaban [Eliquis] 5 mg PO BID Simvastatin [Zocor] 40 mg PO HS methocarbamoL [Robaxin-750] 750 mg PO HS Omeprazole [PriLOSEC] 40 mg PO BID Desvenlafaxine [Pristiq ER] 100 mg PO DAILY Ergocalciferol [Vitamin D2 (1250 Mcg = 68615 Iu)] 1,250 mcg PO Q7D Sildenafil Citrate [Viagra] 100 mg PO DAILY PRN PRN Reason: sexual intercourse Metoprolol Succinate [Toprol XL] 200 mg PO DAILY Tamsulosin HCl [Flomax] 0.4 mg PO DAILY Discontinued Lidocaine 5% Patch [Lidoderm 5% Patch] 1 patch TOPICAL DAILY #30 patch Furosemide [Lasix] 40 mg PO DAILY DULoxetine HCL [Cymbalta] 60 mg PO DAILY HYDROcodone/APAP 10-325MG [[place] 10-325] 1 tab PO Q8H PRN PRN Reason: Pain LORazepam [Ativan] 1 mg PO BID ALPRAZolam [Xanax] 2 mg PO Q12H Mirtazapine [Remeron] 45 mg PO HS oxyCODONE HCL [oxyCODONE HCL (IR)] 20 mg PO TID Dextroamphetamine/Amphetamine [Adderall] 10 mg PO BID Metoclopramide [Reglan] 10 mg PO BID Eszopiclone [Lunesta] 3 mg PO HS Discharge Medication List cloNIDine HCL [Catapres] 0.2 mg PO TID 03/10/16 [History] Apixaban [Eliquis] 5 mg PO BID 11/26/21 [History] Gabapentin 600 mg PO TID 11/26/21 [History] Desvenlafaxine [Pristiq ER] 100 mg PO DAILY 02/23/23 [History] Ergocalciferol [Vitamin D2 (1250 Mcg = 85175 Iu)] 1,250 mcg PO Q7D 02/23/23 [History] Metoprolol Succinate [Toprol XL] 200 mg PO DAILY 02/23/23 [History] Omeprazole [PriLOSEC] 40 mg PO BID 02/23/23 [History] Sildenafil Citrate [Viagra] 100 mg PO DAILY PRN 02/23/23 [History] Simvastatin [Zocor] 40 mg PO HS 02/23/23 [History] Tamsulosin HCl [Flomax] 0.4 mg PO DAILY 02/23/23 [History] methocarbamoL [Robaxin-750] 750 mg PO HS 02/23/23 [History] Albuterol Sulfate [Albuterol Sulfate Hfa] 1 puff PO Q4-6H #8.5 gm 03/12/23 [Rx] LORazepam [Ativan] 0.5 mg PO TID PRN 3 Days #9 tab 03/12/23 [Rx] Mirtazapine 7.5 mg PO HS #30 tablet 03/12/23 [Rx] Nicotine 21Mg/24Hr Patch [Habitrol] 1 each TRANSDERM DAILY #14 patch 03/12/23 [Rx] Thiamine [Vitamin B-1] 100 mg PO DAILY #30 tablet 03/12/23 [Rx] traZODone HCL [Desyrel] 200 mg PO HS #60 tab 03/12/23 [Rx] Follow up Appointment(s)/Referral(s): Jabari Sorto MD [Primary Care Provider] - 1-2 days (Office is closed at time of discharge. Please call for follow-up appointment.) Patient Instructions/Handouts: Abuse of Alcohol (DC) Activity/Diet/Wound Care/Special Instructions: Patient to call [facility] ([phone] Ext [phone] or [phone]) when discharge date is known and they will let him know when he can be admitted - they state he must bring his Eliquis Rx with him as his insurance would not fill it again Discharge Disposition: HOME SELF-CARE
== END 2023-03-12 13:48 | disposition home or self-care (01) | DRG 896 ==
LOC: EC 15:20 → 6NMEDSUR 17:55 → OBSVTOIN 17:56 → 6NMEDSUR 18:42 → 3SCARD 21:02 → 4SSUR 03-10 01:18
PROVIDERS: ADMIT Family Medicine; ATTEND Family Medicine
PROC: HZ2ZZZZ Detoxification Services for Substance Abuse Treatment (ICD-10-PCS; principal; 2023-03-07)
DX: F10.239 Alcohol dependence with withdrawal, unspecified (principal); G93.41 Metabolic encephalopathy; F31.9 Bipolar disorder, unspecified; G62.89 Other specified polyneuropathies; F15.13 Other stimulant abuse with withdrawal; F11.13 Opioid abuse with withdrawal; I10 Essential (primary) hypertension; J44.9 Chronic obstructive pulmonary disease, unspecified; E78.5 Hyperlipidemia, unspecified; F06.4 Anxiety disorder due to known physiological condition; G47.00 Insomnia, unspecified; N40.0 Benign prostatic hyperplasia without lower urinary tract symptoms; K21.9 Gastro-esophageal reflux disease without esophagitis; F17.210 Nicotine dependence, cigarettes, uncomplicated; Y90.0 Blood alcohol level of less than 20 mg/100 ml; Z20.822 Contact with and (suspected) exposure to COVID-19; Z79.51 Long term (current) use of inhaled steroids; Z79.01 Long term (current) use of anticoagulants; Z79.891 Long term (current) use of opiate analgesic; Z88.8 Allergy status to other drugs, medicaments and biological substances; Z79.899 Other long term (current) drug therapy; Z87.19 Personal history of other diseases of the digestive system; Z86.718 Personal history of other venous thrombosis and embolism; Z59.7 Insufficient social insurance and welfare support; Z81.8 Family history of other mental and behavioral disorders
CPT/HCPCS: 36415; 71046; 71260; 80053; 80143; 80179; 80306; 80320; 81003; 82075; 83735; 84484; 85025; 85610; 85730; 87636; 93005; 94640; 96361; 96374; 99285